=== PATIENT | female | born 1930 | race Caucasian/White ===

== ENCOUNTER 2016-03-30 02:34 | Inpatient (IN) | payer OTHER, MEDICARE ==
[2016-03-30] VITALS (7 sets, daily range): BP systolic 128–149; BP diastolic 57–77; PULSE 59–62; TEMP 36.4–37.2; O2SAT 91–100; Ht 160 cm; Wt 70.8 kg
[~2016-03-30] VITALS: Ht 160 cm; Wt 70.8 kg
[~2016-03-30 02:34] MED LIST: ATV5X PO; BENZ100C84 PO; CHOL1CAP57 PO; CRAN500C2 PO; CYAN100020 PO; DILT240C75 PO; DOCU100C31 PO; ESCI10TA17 PO; INSDGIPEN SC; LANS30CA12 PO; LEVO50TA6 PO; LORA10CA2 PO; LSX40 PO; MAGN400T6 PO; METO100T14 PO; NITR0.4S UT; PRVIN525X NEB; SYMIN160 INH; ZTHM250 PO
[2016-03-30] MEDS ORDERED: ONDANSETRON INJ 2 MG/ML 2 ML VIAL IV STA (02:50)
[2016-03-30] MEDS ORDERED: MoRPHine SULFATE 4 MG/ML 1 ML CARP\\VIAL IV STA ×2 (02:50→03:47)
--- NOTE | 2016-03-30 02:57 | EMERGENCY ROOM VISIT NOTE ---
History Report prepared by Juan: Sebastian Abernathy Under the Supervision of: Dr. Rosaura Ramon D.O. First contact with patient: 02:39 Chief Complaint: ABDOMINAL PAIN Stated Complaint: ABDOMINAL DISCOMFORT Nursing Triage Summary: Pt c/o abdominal pain across abdomen and into back since 1900. Pt states she hasn't been going to the bathroom as normal. Complains of nausea and attempts to vomit. Also c/o cough ongoing for 1 year and was diagnoses with yeast infection in throat/sinus and lungs. History of Present Illness The patient is an 85 year old female who presents to the Emergency Room with complaints of persistent lower abdominal pain starting about 8 hours ago. She describes it to be a sharp pain which radiates into her back. She also complains of nausea but denies vomiting. She also complains of constipation. Her last normal bowel movement was 2 days ago. She took hot prune without relief. She has had a loss of appetite. She notes worse than normal weakness occurring tonight. She also reports runny nose, cough with mucous production, and sore throat occurring for the past few months. She was recently diagnosed with a yeast infection and sinus infection. The patient has a history of cholecystectomy, appendectomy, and hysterectomy. She denies any history of bowel obstruction. Source of History: patient Onset: about 8 hours ago Position: abdomen (lower) Quality: sharp Timing: other (persistent) Modifying Factors (Relieving): other (hot prune without relief) Associated Symptoms: + cough, + nausea, + sorethroat, No vomiting Review of Systems See HPI for pertinent positives & negatives. A total of 10 systems reviewed and were otherwise negative. Past Medical & Surgical Medical Problems: (1) Acute exacerbation of CHF (congestive heart failure) (2) Atrial fibrillation (3) CHF (congestive heart failure) (4) DM (diabetes mellitus) (5) GERD (gastroesophageal reflux disease) (6) Pacemaker (7) PNA (pneumonia) (8) Renal failure (9) SBO (small bowel obstruction) Surgical Problems: (1) History of cardiac cath (2) S/P quintuple vessel bypass Family History Omitted secondary to age Social History Smoking Status: Never Smoker Alcohol Use: none Drug Use: none Marital Status: Housing Status: lives alone Occupation Status: retired Current/Historical Medications Scheduled Albuterol Sulf (Albuterol Sulfate), 2.5 MG NEB Q4H Aspirin (Aspirin Ec), 81 MG PO DAILY Benzonatate (Tessalon Perles), 100 MG PO TID Cholecalciferol (Vitamin D3), 1,000 INTER.UNIT PO QAM Cranberry (Vaccinium Macrocarp (Cranberry), 1,000 MG PO BID Cyanocobalamin (Vitamin B12), 1,000 MCG PO QAM Diltiazem Hcl Extended Release (Diltiazem Hcl), 240 MG PO QAM Escitalopram (Lexapro), 5 MG PO DAILY Fluconazole (Diflucan), 200 MG PO BID Furosemide (Furosemide), 40 MG PO QAM Insulin Glargine (Lantus Solostar), 30 UNITS SC QAM Lansoprazole (Prevacid), 30 MG PO DAILY Levothyroxine Sodium (Levothyroxine Sodium), 50 MCG PO QAM Loratadine (Claritin), 10 MG PO QAM Magnesium Oxide (Mag-Ox), 400 MG PO QAM Metoprolol Tartrate (Lopressor) (Lopressor), 100 MG PO BID Mometasone Furoate (Nasal) (Mometasone Furoate), 2 SPRAYS ANTOINE DAILY Tiotropium [place]-Olodaterol (Stiolto Respimat 2.5-2.5 Mcg/Act), 2 PUFFS PO DAILY Scheduled PRN Docusate Sodium (Docusate Sodium), 100 MG PO BID PRN for Constipation Levalbuterol (Levalbuterol HCl), 3 ML NEB Q6 PRN for UNDECIDED Nitroglycerin (Nitrostat), 0.4 MG UT UD PRN for Chest Pain Allergies Coded Allergies: Fenofibrate (Verified Allergy, Intermediate, rash, 03/30/16) Amoxicillin (Verified Allergy, Unknown, UNKNOWN, 03/30/16) Fexofenadine (Verified Allergy, Unknown, UNKNOWN, 03/30/16) Irbesartan (Verified Allergy, Unknown, UNKNOWN, 03/30/16) Niacin (Verified Allergy, Unknown, RASH, 03/30/16) Penicillins (Verified Allergy, Unknown, UNKNOWN, 03/30/16) Sulfa Antibiotics (Verified Allergy, Unknown, UNKNOWN, 03/30/16) Flumazenil (Unverified Adverse Reaction, Intermediate, DELIRIUM, 03/30/16) anxious, increased heart rate, increased blood pressure Physical Exam Vital Signs Date Time Temp Pulse Resp B/P Pulse Ox O2 Delivery O2 Flow Rate FiO2 03/30/16 05:30 91 21 102/67 97 Room Air 03/30/16 04:26 93 Nasal Cannula 3.0 03/30/16 04:24 74 18 202/74 93 Nasal Cannula 3.0 03/30/16 03:05 68 24 198/97 98 Room Air 03/30/16 02:56 60 03/30/16 02:36 36.7 61 25 214/80 94 Room Air Physical Exam General: Appears uncomfortable. HEENT: Head - normocephalic and atraumatic Pupils are equal, round, and reactive to light. Extraocular eye muscles are intact, and sclera are anicteric. Nose - moist nasal mucosa without discharge. Mouth - dry buccal mucosa. Oropharynx is nonerythematous and there is no tonsillar exudate or edema noted. Neck: Supple; no JVD, nuchal rigidity, cervical lymphadenopathy. Heart: Regular rate and rhythm. There is a normal S1 and S2 with no murmurs, clicks, or gallops appreciated. Lungs: Clear to auscultation bilaterally with no wheezes, rales, or rhonchi. Abdomen: Soft, diffuse abdominal pain with palpation, nondistended, with good bowel sounds. There are no palpable pulsatile masses or hepatosplenomegaly. There is no guarding, rigidity, or rebound noted. Extremities: No evidence of cyanosis, clubbing. There are easily palpable peripheral pulses. Trace edema. Skin: warm and dry with good turgor and no rashes. Medical Decision & Procedures ER Provider Diagnostic Interpretation: X-ray results as stated below per interpretation by me: CHEST/ABDOMEN X-RAY Large amount of stool throughout the small and large bowel. CT results as stated below per my review and radiologist interpretation: CT ABDOMEN AND PELVIS Impression: Small bowel obstruction with transition point in the right femoral hernia. No evidence of strangulation. No pneumatosis or free air. Additional findings: The visualized lower thorax demonstrates mosaic attenuation suggestion air trapping from small airways disease. The gallbladder is surgically absent. The liver, spleen, pancreas, and adrenal glands are unremarkable. Marked atrophy of the left kidney. Otherwise, kidneys, ureters and urinary bladder are unremarkable. The uterus is surgically absent. No adnexal masses. The appendix is not visualized and may be surgically absent or diminutive. Noninflamed colonic diverticulosis. Lower anterior abdominal wall hernia repair with mesh. No acute osseous abnormality. Radiologist: Jarrod Cody MD Laboratory Results 03/30/16 03:05 Red Blood Count 5.11, Mean Corpuscular Volume 86.7, Mean Corpuscular Hemoglobin 30.7, Mean Corpuscular Hemoglobin Concent 35.4, Mean Platelet Volume 8.8, Neutrophils (%) (Auto) 79.2, Lymphocytes (%) (Auto) 13.9, Monocytes (%) (Auto) 4.5, Eosinophils (%) (Auto) 1.8, Basophils (%) (Auto) 0.2, Neutrophils # (Auto) 9.05, Lymphocytes # (Auto) 1.59, Monocytes # (Auto) 0.51, Eosinophils # (Auto) 0.21, Basophils # (Auto) 0.02 03/30/16 03:05 Test 03/30/16 03:05 03/30/16 03:10 White Blood Count 11.42 K/uL (4.8-10.8) Red Blood Count 5.11 M/uL (4.2-5.4) Hemoglobin 15.7 g/dL (12.0-16.0) Hematocrit 44.3 % (37-47) Mean Corpuscular Volume 86.7 fL (80-100) Mean Corpuscular Hemoglobin 30.7 pg (25-34) Mean Corpuscular Hemoglobin Concent 35.4 g/dl (32-36) Platelet Count 226 K/uL (130-400) Mean Platelet Volume 8.8 fL (7.4-10.4) Neutrophils (%) (Auto) 79.2 % Lymphocytes (%) (Auto) 13.9 % Monocytes (%) (Auto) 4.5 % Eosinophils (%) (Auto) 1.8 % Basophils (%) (Auto) 0.2 % Neutrophils # (Auto) 9.05 K/uL (1.4-6.5) Lymphocytes # (Auto) 1.59 K/uL (1.2-3.4) Monocytes # (Auto) 0.51 K/uL (0.11-0.59) Eosinophils # (Auto) 0.21 K/uL (0-0.5) Basophils # (Auto) 0.02 K/uL (0-0.2) RDW Standard Deviation 43.3 fL (36.4-46.3) RDW Coefficient of Variation 13.6 % (11.5-14.5) Immature Granulocyte % (Auto) 0.4 % Immature Granulocyte # (Auto) 0.04 K/uL (0.00-0.02) Anion Gap 10.0 mmol/L (3-11) Est Creatinine Clear Calc Drug Dose 28.2 ml/min Estimated GFR () 39.3 Estimated GFR (Non- 33.9 BUN/Creatinine Ratio 12.2 (10-20) Calcium Level 9.3 mg/dl (8.5-10.1) Total Bilirubin 0.4 mg/dl (0.2-1) Direct Bilirubin < 0.1 mg/dl (0-0.2) Aspartate Amino Transf (AST/SGOT) 19 U/L (15-37) Alanine Aminotransferase (ALT/SGPT) 16 U/L (12-78) Alkaline Phosphatase 110 U/L (45-117) Total Creatine Kinase 43 U/L (26-192) Creatine Kinase MB 4.2 ng/ml (0.5-3.6) Creatine Kinase MB Ratio 9.8 (0-3.0) Troponin I 0.019 ng/ml (0-0.045) Total Protein 7.4 gm/dl (6.4-8.2) Albumin 3.0 gm/dl (3.4-5.0) Lipase 110 U/L (73-393) Urine Color YELLOW Urine Appearance CLEAR (CLEAR) Urine pH 7.5 (4.5-7.5) Urine Specific [place] 1.020 (1.000-1.030) Urine Protein 4+ (NEG) Urine Glucose (UA) 1+ (NEG) Urine Ketones NEG (NEG) Urine Occult Blood 1+ (NEG) Urine Nitrite NEG (NEG) Urine Bilirubin NEG (NEG) Urine Urobilinogen NEG (NEG) Urine Leukocyte Esterase NEG (NEG) Urine WBC (Auto) 1-5 /hpf (0-5) Urine RBC (Auto) 5-10 /hpf (0-4) Urine Hyaline Casts (Auto) 5-10 /lpf (0-5) Urine Epithelial Cells (Auto) >30 /lpf (0-5) Urine Bacteria (Auto) 1+ (NEG) Urine Renal Epithelial Cells 5-10 /lpf (0-5) Urine Crystals AMORPHOUS SEDIMENT (NONE Laboratory results per my review. Medications Administered Medications (Trade) Dose Ordered Sig/Leslee Route Start Time Stop Time Status Last Admin Dose Admin Ondansetron HCl (Zofran Inj) 4 mg NOW STAT IV 03/30/16 02:50 03/30/16 02:51 DC 03/30/16 03:12 4 MG Morphine Sulfate (MoRPHine SULFATE INJ) 2 mg STK-MED ONCE .ROUTE 03/30/16 03:09 03/30/16 03:10 DC 03/30/16 03:12 2 MG Morphine Sulfate 2 mg 2 mg STK-MED ONCE .ROUTE 03/30/16 03:50 03/30/16 03:51 DC 03/30/16 03:52 2 MG Sodium Chloride 1,000 ml @ 250 mls/hr Q4H STAT IV 03/30/16 03:57 03/30/16 06:12 DC 03/30/16 05:18 250 MLS/HR Sodium Chloride (Nss 500ml) 500 ml @ 999 mls/hr Q31M STAT IV 03/30/16 03:57 03/30/16 04:27 DC 03/30/16 04:00 999 MLS/HR Procedure Zofran Inj 4 mg IV, Morphine Sulfate 2 mg IV, Sodium Chloride 500 ml @ 999 mls/ hr IV, Sodium Chloride 1000 ml @ 250 mls/hr IV ECG Indication: abdominal pain Rate (beats per minute): 60 Rhythm: other (Atrial paced) Findings: LBBB, no acute ischemic change, no ectopy ED Course 0239: Past medical records reviewed. The patient was evaluated in room A11B. A complete history and physical exam was performed. Laboratory studies were drawn as above.. 0250: Zofran Inj 4 mg IV, Morphine Sulfate 2 mg IV. The patient went for an obstruction series as described above. 0347: The patient had no relief with 2 mg of Morphine given earlier. 0350: Morphine Sulfate 2 mg IV. A twelve-lead EKG was obtained as described above. 0357: Sodium Chloride 500 ml @ 999 mls/hr IV, Sodium Chloride 1000 ml @ 250 mls/ hr IV. The patient will go for CT scan of the abdomen/pelvis to rule out small bowel obstruction. 0500: Upon reevaluation, I discussed findings and results with her. She verbalized agreement of the treatment plan. The patient will be evaluated for further management and care. 0510: I discussed the patient's case with Dr. Winchester, from [facility]. 0525: Upon reexamination, she has a palpable, incarcerated right femoral hernia which is very tender to touch. I was unable to reduce it. 0527: I discussed the patient's case with Dr. Bender, general surgeon with [facility]. Medical Decision This is an 85 year old female who presents with abdominal pain. Differential diagnosis include pancreatitis, colitis, small bowel obstruction, aortic dissection. Her labs showed white count 11.4, stable H&H, creatinine 1.4, glucose 245, lipase 110, troponin 0.019, normal coagulation studies. Urinalysis shows 1+ blood, 1+ bacteria, 5-10 red blood cells, and no white blood cells. This is an 85-year-old woman who has developed worsening diffuse abdominal pain that has extended up into her epigastrium. She has some mild associated nausea. Overall, the patient describes loss of appetite and weight loss in the recent past. The patient had a CT scan which showed a small bowel obstruction with a transition point and a right femoral hernia. On reexamination of the patient, she now has a palpable hernia in the right inguinal canal that is quite tender to touch. I was unable to reduce the hernia. I discussed the case with the [facility] as well as the [facility] surgeon on-call. The patient is comfortable at this time. She'll be kept nothing by mouth. She will continue to receive IV fluids. She did have some renal insufficiency and was significantly hyperglycemic. Consults Time Called: 050 Consulting Physician: Dr. Winchester, from [facility] Service Returned Call: 05 I discussed the patient's case with Dr. Winchester, from [facility]. Additional Consults: Time Called: 05 Consulted Physician: Dr. Bender, general surgeon with [facility] Returned Call: [phone] Additional Comments: I discussed the patient's case with Dr. Bender, general surgeon with [facility]. Impression Primary Impression: Small bowel obstruction Additional Impressions: Incarcerated right inguinal hernia, Renal insufficiency, Hyperglycemia due to type 2 diabetes mellitus Scribe Attestation The scribe's documentation has been prepared under my direction and personally reviewed by me in its entirety. I confirm that the note above accurately reflects all work, treatment, procedures, and medical decision making performed by me. Departure Information Dispostion Being Evaluated By Hospitalist Referrals Deion Downs M.D. (PCP) Patient Instructions A Signature Page
[2016-03-30] MEDS ORDERED: MoRPHine SULFATE 2 MG/ML CARP ONE ×2 (03:09→03:50)
[2016-03-30 03:23] LABS: BASO % 0.2 %; BASO ABS # 0.02 K/uL (0-0.2); COMPLETE YES; EOS % 1.8 %; HEMATOCRIT 44.3 % (37-47); IG% 0.4 %; LYMPH % 13.9 %; LYMPH ABS # 1.59 K/uL (1.2-3.4); MEAN CELL VOLUME 86.7 fL (80-100); MEAN CORPUSCULAR HEMOGLOBIN 30.7 pg (25-34); MEAN CORPUSCULAR HGB CONC 35.4 g/dl (32-36); MEAN PLATELET VOLUME 8.8 fL (7.4-10.4); MONO % 4.5 %; NEUT % 79.2 %; PLATELET COUNT 226 K/uL (130-400); RED BLOOD COUNT 5.11 M/uL (4.2-5.4); WHITE BLOOD COUNT 11.42 K/uL (4.8-10.8)
[2016-03-30 03:24] LABS: URINE APPEARANCE CLEAR (CLEAR); URINE BILIRUBIN NEG (NEG); URINE COLOR YELLOW; URINE EPITHELIAL CELL AUTO >30 /lpf (0-5); URINE NITRITE NEG (NEG); URINE PH 7.5 (4.5-7.5); UROBILINOGEN NEG (NEG)
[2016-03-30 03:33] LABS: MANUAL MICROSCOPIC REQUIRED? NO; REVIEW REQ? YES; SULFASALICYLIC ACID POS (NEG)
[2016-03-30 03:47] LABS: ALT/SGPT 16 U/L (12-78); AST/SGOT 19 U/L (15-37); BLOOD UREA NITROGEN 17 mg/dl (7-18); BUN/CREATININE RATIO 12.2 (10-20); CALCIUM 9.3 mg/dl (8.5-10.1); CARBON DIOXIDE 29 mmol/L (21-32); CHLORIDE 94 mmol/L (98-107); GLUCOSE 245 mg/dl (70-99); POTASSIUM 3.7 mmol/L (3.5-5.1); SODIUM 133 mmol/L (136-145)
[2016-03-30 03:52] LABS: ALKALINE PHOSPHATASE 110 U/L (45-117); CKMB/CK RATIO 9.8 (0-3.0)
[2016-03-30] MEDS ORDERED: SODIUM CHLORIDE 0.9% 500ML 500 ML IV STA (03:57)
[2016-03-30] MEDS ORDERED: SODIUM CHLORIDE 0.9% 1000ML 1,000 ML IV STA (03:57)
[2016-03-30] MEDS ORDERED: XPNINS NEB (03:58)
[2016-03-30] MEDS ORDERED: FLUC200T4 PO (03:58)
[2016-03-30] MEDS ORDERED: ASPI81TA28 PO (04:00)
[2016-03-30] MEDS ORDERED: OPTIRAY 320 IV PRN (04:00)
[2016-03-30] MEDS ORDERED: TIOT1AER PO (04:33)
[2016-03-30] MEDS ORDERED: MOME6000 NAE (04:34)
--- NOTE | 2016-03-30 05:28 | History and Physical ---
History & Physical Date & Time of Service: Mar 30, 2016 at 05:24 Chief Complaint: Abdominal Discomfort Primary Care Physician: Deion Downs M.D. History of Present Illness Source: patient 85 y/o F w/complex Hx including CHF, AF, CAD, DM, CKD 3 - presents with lower abdominal pain and nausea occurring 8 hours prior to arrival. She states that she was dry heaving but unable to vomit. The pt was recently admitted for bronchitis and SOB but currently denies significant dyspnea, CP, fevers, dysuria. Abdominal CT reveals an SBO with a transition point at a R femoral hernia - this is concerning for incarceration. She is exhibiting a significant degree of pain at the time of admission. The ER attending had contacted the surgical service who will evaluate the pt however they have requested medical admission. Past Medical/Surgical History Medical Problems: (1) Atrial fibrillation Status: Chronic (2) CHF (congestive heart failure) Status: Chronic (echo 01/07 EF 45% - mild LV hypokinesis) (3) DM (diabetes mellitus) Status: Chronic (4) GERD (gastroesophageal reflux disease) Status: Chronic (5) Pacemaker Status: Chronic (6) Renal failure Status: Chronic Surgical Problems: (1) History of cardiac cath Status: Resolved (2) S/P quintuple vessel bypass Status: Resolved 3) Hysterectomy 4) Hernia repair w/mesh 5) Cholecystectomy 6) Appendectomy Family History Omitted secondary to age Social History Smoking Status: Never Smoker Drug Use: none Marital Status: Housing status: lives alone Occupational Status: retired Allergies Coded Allergies: Fenofibrate (Verified Allergy, Intermediate, rash, 03/30/16) Amoxicillin (Verified Allergy, Unknown, UNKNOWN, 03/30/16) Fexofenadine (Verified Allergy, Unknown, UNKNOWN, 03/30/16) Irbesartan (Verified Allergy, Unknown, UNKNOWN, 03/30/16) Niacin (Verified Allergy, Unknown, RASH, 03/30/16) Penicillins (Verified Allergy, Unknown, UNKNOWN, 03/30/16) Sulfa Antibiotics (Verified Allergy, Unknown, UNKNOWN, 03/30/16) Flumazenil (Unverified Adverse Reaction, Intermediate, DELIRIUM, 03/30/16) anxious, increased heart rate, increased blood pressure Home Medications Scheduled Albuterol Sulf (Albuterol Sulfate), 2.5 MG NEB Q4H Aspirin (Aspirin Ec), 81 MG PO DAILY Benzonatate (Tessalon Perles), 100 MG PO TID Cholecalciferol (Vitamin D3), 1,000 INTER.UNIT PO QAM Cranberry (Vaccinium Macrocarp (Cranberry), 1,000 MG PO BID Cyanocobalamin (Vitamin B12), 1,000 MCG PO QAM Diltiazem Hcl Extended Release (Diltiazem Hcl), 240 MG PO QAM Escitalopram (Lexapro), 5 MG PO DAILY Fluconazole (Diflucan), 200 MG PO BID Furosemide (Furosemide), 40 MG PO QAM Insulin Glargine (Lantus Solostar), 30 UNITS SC QAM Lansoprazole (Prevacid), 30 MG PO DAILY Levothyroxine Sodium (Levothyroxine Sodium), 50 MCG PO QAM Loratadine (Claritin), 10 MG PO QAM Magnesium Oxide (Mag-Ox), 400 MG PO QAM Metoprolol Tartrate (Lopressor) (Lopressor), 100 MG PO BID Mometasone Furoate (Nasal) (Mometasone Furoate), 2 SPRAYS ANTOINE DAILY Tiotropium [place]-Olodaterol (Stiolto Respimat 2.5-2.5 Mcg/Act), 2 PUFFS PO DAILY Scheduled PRN Docusate Sodium (Docusate Sodium), 100 MG PO BID PRN for Constipation Levalbuterol (Levalbuterol HCl), 3 ML NEB Q6 PRN for UNDECIDED Nitroglycerin (Nitrostat), 0.4 MG UT UD PRN for Chest Pain Physical Exam Vital Signs Date Time Temp Pulse Resp B/P Pulse Ox O2 Delivery O2 Flow Rate FiO2 03/30/16 04:26 93 Nasal Cannula 3.0 03/30/16 04:24 74 18 202/74 93 Nasal Cannula 3.0 03/30/16 03:05 68 24 198/97 98 Room Air 03/30/16 02:56 60 03/30/16 02:36 36.7 61 25 214/80 94 Room Air General Appearance: WD/WN, no apparent distress Head: normocephalic, atraumatic Eyes: normal inspection, EOMI ENT: normal ENT inspection, pharynx normal Neck: supple, no JVD Respiratory/Chest: chest non-tender, lungs clear, normal breath sounds, no respiratory distress, no accessory muscle use Cardiovascular: no JVD, + systolic murmur, + irregularly irregular Abdomen/GI: + tenderness, + abnormal bowel sounds, + distended, + guarding Back: normal inspection, no CVA tenderness 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, no motor/sensory deficits, alert, normal mood/affect, normal reflexes, oriented x 3 Skin: normal color, warm/dry, no rash Diagnostics Laboratory Results Results Past 24 Hours Test 03/30/16 03:05 03/30/16 03:10 Range/Units White Blood Count 11.42 4.8-10.8 K/uL Red Blood Count 5.11 4.2-5.4 M/uL Hemoglobin 15.7 12.0-16.0 g/dL Hematocrit 44.3 37-47 % Mean Corpuscular Volume 86.7 80-100 fL Mean Corpuscular Hemoglobin 30.7 25-34 pg Mean Corpuscular Hemoglobin Concent 35.4 32-36 g/dl Platelet Count 226 130-400 K/uL Mean Platelet Volume 8.8 7.4-10.4 fL Neutrophils (%) (Auto) 79.2 % Lymphocytes (%) (Auto) 13.9 % Monocytes (%) (Auto) 4.5 % Eosinophils (%) (Auto) 1.8 % Basophils (%) (Auto) 0.2 % Neutrophils # (Auto) 9.05 1.4-6.5 K/uL Lymphocytes # (Auto) 1.59 1.2-3.4 K/uL Monocytes # (Auto) 0.51 0.11-0.59 K/uL Eosinophils # (Auto) 0.21 0-0.5 K/uL Basophils # (Auto) 0.02 0-0.2 K/uL RDW Standard Deviation 43.3 36.4-46.3 fL RDW Coefficient of Variation 13.6 11.5-14.5 % Immature Granulocyte % (Auto) 0.4 % Immature Granulocyte # (Auto) 0.04 0.00-0.02 K/uL Sodium Level 133 136-145 mmol/L Potassium Level 3.7 3.5-5.1 mmol/L Chloride Level 94 98-107 mmol/L Carbon Dioxide Level 29 21-32 mmol/L Anion Gap 10.0 3-11 mmol/L Blood Urea Nitrogen 17 7-18 mg/dl Creatinine 1.40 0.60-1.20 mg/dl Est Creatinine Clear Calc Drug Dose 28.2 ml/min Estimated GFR () 39.3 Estimated GFR (Non- 33.9 BUN/Creatinine Ratio 12.2 10-20 Random Glucose 245 70-99 mg/dl Calcium Level 9.3 8.5-10.1 mg/dl Total Bilirubin 0.4 0.2-1 mg/dl Direct Bilirubin < 0.1 0-0.2 mg/dl Aspartate Amino Transf (AST/SGOT) 19 15-37 U/L Alanine Aminotransferase (ALT/SGPT) 16 12-78 U/L Alkaline Phosphatase 110 45-117 U/L Total Creatine Kinase 43 26-192 U/L Creatine Kinase MB 4.2 0.5-3.6 ng/ml Creatine Kinase MB Ratio 9.8 0-3.0 Troponin I 0.019 0-0.045 ng/ml Total Protein 7.4 6.4-8.2 gm/dl Albumin 3.0 3.4-5.0 gm/dl Lipase 110 73-393 U/L Urine Color YELLOW Urine Appearance CLEAR CLEAR Urine pH 7.5 4.5-7.5 Urine Specific [place] 1.020 1.000-1.030 Urine Protein 4+ NEG Urine Glucose (UA) 1+ NEG Urine Ketones NEG NEG Urine Occult Blood 1+ NEG Urine Nitrite NEG NEG Urine Bilirubin NEG NEG Urine Urobilinogen NEG NEG Urine Leukocyte Esterase NEG NEG Urine WBC (Auto) 1-5 0-5 /hpf Urine RBC (Auto) 5-10 0-4 /hpf Urine Hyaline Casts (Auto) 5-10 0-5 /lpf Urine Epithelial Cells (Auto) >30 0-5 /lpf Urine Bacteria (Auto) 1+ NEG Urine Renal Epithelial Cells 5-10 0-5 /lpf Urine Crystals AMORPHOUS SEDIMENT NONE PRSENT Microbiology Results 03/30/16 Urine Culture, Received Pending Diagnostic Radiology Abdominal CT reveals an SBO with a transition point at a R femoral hernia. EKG Paced rhythm Impression Assessment and Plan 85 y/o F w/complex Hx including CHF, AF, CAD, DM, CKD 3 - presents with lower abdominal pain and nausea occurring 8 hours prior to arrival. 1) SBO - abdomen is clinically acute and surgery was informed by the ER at the time of admission - Pt is high risk for surgery and should be evaluated by cardiology if surgery is needed. We will order an NGT and place her on gentle hydration. It is unclear if an incarcerated hernia is the cause or if this can be reduced without significant intervention. medications which can be converted to IV form will be provided. 2) CHF 45% - she is not currently decompensated - we will hold her Lasix currently and provide scheduled IV Metoprolol with holding parameters. 3) AF with pacer - she does not take anticoagulation presumably due to fall risk - rhythm is paced on admission - IV Metoprolol provided - she takes PO Diltiazem in addition to a B katie normally and IV Diltiazem can be provided as needed - she will be monitored on telemetry 4) CKD - Creatinine is at baseline - IVF - trend labs daily 5) DM - sliding scale - Q6H POC Full code - SCDs pending surgical eval Total time for this admit including chart review - review of records, labs, med rec, imaging, EKG - discussion with ER attending and Pt 40 min Level of Care Telemetry Resuscitation Status FULL RESUSCITATION VTE Prophylaxis Risk Level: Moderate Given or contraindicated: SCD's
[2016-03-30] MEDS ORDERED: ALBUTEROL 0.5% NEB SOLN 2.5 MG/0.5 ML VIAL INH PRN (05:45)
[2016-03-30] MEDS ORDERED: NITROGLYCERIN 0.4 MG SL PER TAB CHARGE UT PRN (05:45)
[2016-03-30] MEDS ORDERED: MoRPHine SULFATE 2 MG/ML CARP IV PRN (05:45)
[2016-03-30] MEDS ORDERED: NITROGLYCERIN 0.4 MG SL PER TAB CHARGE SL PRN (05:45)
[2016-03-30 06:35] LABS: PROTHROMBIN TIME (PATIENT) 10.6 SECONDS (9.0-12.0)
[2016-03-30] MEDS ORDERED: NEOSTIGMINE METHYLSULFATE 5 MG/5 ML SYR ONE (07:15)
[2016-03-30] MEDS ORDERED: ROCURONIUM BROMIDE 10 MG/ML 5 ML VIAL ONE (07:15)
[2016-03-30] MEDS ORDERED: PROPOFOL IV EMULSION 10 MG/ML 20 ML VIAL IV ONE (07:15)
[2016-03-30] MEDS ORDERED: GLYCOPYRROLATE INJ 0.2 MG/ML VIAL ONE ×2 (07:15→09:55)
[2016-03-30] MEDS ORDERED: LIDOCAINE HCL 2% 2 ML VIAL (20MG/ML) ONE (07:15)
[2016-03-30] MEDS ORDERED: FENTANYL CITRATE INJ 50 MCG/1 ML 2 ML VIAL ONE (07:15)
[2016-03-30] MEDS ORDERED: ONDANSETRON INJ 2 MG/ML 2 ML VIAL ONE ×2 (07:15→12:09)
[2016-03-30] MEDS ORDERED: DEXAMETHASONE SOD INJ 4 MG/ML VIAL ONE (07:15)
[2016-03-30] MEDS ORDERED: MIDAZOLAM HCL 1 MG/ML 2ML VIAL ONE (07:16)
[2016-03-30] MEDS: NSS + 20MEQ KCL 1000ML 1,000 ML IV SCH ×2 (07:23→13:37)
--- NOTE | 2016-03-30 07:45 | DIAGNOSTIC IMAGING REPORT ---
PA CHEST WITH ABDOMINAL SERIES CLINICAL HISTORY: Generalized abdominal pain. Constipation. FINDINGS: A PA chest radiograph is compared to study dated 03/21/2016 and correlated with chest CT dated 12/30/2015. A 2-lead cardiac pacemaker is unchanged in position and partially obscures the left upper chest. The patient is status post midline sternotomy. The heart is enlarged and there is atherosclerotic calcification of the thoracic aorta. Chronic interstitial thickening an parenchymal nodularity is unchanged. There is no airspace consolidation, large pleural effusion, or pneumothorax. Biapical scarring is observed. The skeletal structures are osteopenic. The bony thorax is grossly intact. Supine and erect abdominal radiographs are correlated with abdominal CT dated 09/12/2013. There is a nonobstructed abdominal bowel gas pattern. Cholecystectomy clips are seen in the right upper quadrant. There is moderate colonic fecal retention. No intraperitoneal free air is seen. Vascular calcifications are noted in the pelvis. Moderate lumbosacral spondylosis is observed. The bony pelvis is grossly intact. Arthritic change is seen in the hips. IMPRESSION: 1. Cardiomegaly and cardiac pacemaker. There is no radiographic evidence of congestive failure. 2. There is no airspace consolidation or pleural effusion. 3. There is no radiographic evidence of bowel obstruction. Moderate constipation is observed. Electronically signed by: Sumit Schmid M.D. 03/30/2016 7:43 AM Dictated Date/Time: 03/30/2016 7:39 AM
--- NOTE | 2016-03-30 08:22 | DIAGNOSTIC IMAGING REPORT ---
ABDOMEN AND PELVIS CT WITH IV CONTRAST CT DOSE: 591.27 mGy.cm HISTORY: Abdominal distention. Assess for small bowel obstruction. Vomiting. TECHNIQUE: Multiaxial CT images of the abdomen and pelvis were performed following the use of intravenous contrast. COMPARISON STUDY: Abdomen and pelvis CT 09/12/2013. FINDINGS: A few subcentimeter nodules at the lung bases are similar to the prior study. Dominant nodule within the left lower lobe measures 6 mm. Pacemaker wires are noted. No pneumoperitoneum or pneumatosis. Degenerative changes within the right hip. No suspicious lytic or blastic osseous lesions. There are poststernotomy changes. Prior cholecystectomy. The liver is unremarkable. Punctate calcified granuloma within the spleen. The pancreas is atrophic. There is a markedly atrophic left kidney, unchanged. Moderate right cortical renal scarring/thinning. No right-sided hydronephrosis. No retroperitoneal lymphadenopathy. Multiple fluid-filled loops of dilated proximal to mid small bowel. There is a transition point located within the right lower quadrant abdominal wall hernia. This is consistent with the site of small bowel obstruction. Normal bladder. Prior hysterectomy. Stable soft tissue thickening surrounding the coccyx. Colonic diverticulosis. The ileal loops are decompressed. Evidence for prior mesh repair of a ventral hernia. IMPRESSION: 1. Small bowel obstruction with the transition point located within the right lower quadrant abdominal wall hernia. This could represent a Spigelian or femoral hernia. 2. Additional findings as described above are not significantly changed compared to the prior study. Electronically signed by: Benoit Rutherford M.D. 03/30/2016 8:20 AM Dictated Date/Time: 03/30/2016 8:12 AM
[2016-03-30] MEDS ORDERED: LACTATED RINGER'S 1000ML 1,000 ML IV PRN (08:54)
--- NOTE | 2016-03-30 08:55 | Pre-Operative Consultation ---
History General Date of Service: Mar 30, 2016. Chief Complaint: Abd pain, nausea Stated Complaint: 85 year old female developed abdominal pain last night at 7 PM. The pain is in the lower abdomen and mostly in the right inguinal area. She has never had pain like this in the past. She has had nausea with this and dry heaves but did not vomit. She has not had fever. She has a long history of intermittent constipation but her bowel habits are unchanged. She has some issues with urinary incontinence. HPI HPI: The patient is a 85 year old female being seen for pre-operative evaluation. Historian: patient Procedure Urgency: Emergency Risk Assessment Pre-Op Conditions: + pacemaker Problem List Medical Problems: (1) Altered mental status Status: Acute (2) Hyperglycemia Status: Acute (3) Hyperglycemia due to type 2 diabetes mellitus Status: Acute (4) Incarcerated right inguinal hernia Status: Acute (5) Left leg cellulitis Status: Acute (6) Leukocytosis Status: Acute (7) Pneumonia Status: Acute (8) Pneumonitis Status: Acute (9) Renal insufficiency Status: Acute (10) Respiratory distress Status: Acute (11) Small bowel obstruction Status: Acute (12) UTI (urinary tract infection) Status: Acute Medical & Surgical History Past Medical History: atrial fibrillation, congestive heart failure, coronary artery disease, diabetes, GERD, heart attack, heart disease, other (CKD 3) Past Surgical History: appendectomy, cholecystectomy, coronary bypass surgery ( X4), hysterectomy, pacemaker Social History Hx Tobacco Use In Past Year?: No Smoking Status: Never Smoker Alcohol: none Drug Use: none Marital status: Housing status: lives alone Occupation status: retired Allergies Allergies: Coded Allergies: Fenofibrate (Verified Allergy, Intermediate, rash, 03/30/16) Amoxicillin (Verified Allergy, Unknown, UNKNOWN, 03/30/16) Fexofenadine (Verified Allergy, Unknown, UNKNOWN, 03/30/16) Irbesartan (Verified Allergy, Unknown, UNKNOWN, 03/30/16) Niacin (Verified Allergy, Unknown, RASH, 03/30/16) Penicillins (Verified Allergy, Unknown, UNKNOWN, 03/30/16) Sulfa Antibiotics (Verified Allergy, Unknown, UNKNOWN, 03/30/16) Flumazenil (Unverified Adverse Reaction, Intermediate, DELIRIUM, 03/30/16) anxious, increased heart rate, increased blood pressure Medications Current Inpatient Medications Current Inpatient Medications Medications (Trade) Dose Ordered Sig/Leslee Route Start Time Stop Time Status Last Admin Dose Admin Ioversol (Optiray 320) 100 ml UD PRN IV 03/30/16 04:00 04/03/16 03:59 Albuterol Sulfate (Ventolin 0.5% 2.5MG/0.5ML Neb) 2.5 mg Q4H PRN INH 03/30/16 05:45 04/29/16 05:44 Fluticasone Propionate (Flonase Nasal [place]) 2 sprays DAILY ANTOINE 03/30/16 09:00 04/29/16 08:59 Miscellaneous Information 1 ea 1 ea QS N/A 03/30/16 08:00 04/29/16 07:59 Levothyroxine Sodium/Syringe (Synthroid Inj/ Syringe) 1.25 ml @ 2 mls/min DAILY@09 IV 03/30/16 09:00 04/29/16 08:59 Metoprolol Tartrate 5 mg 5 mg Q6 IV. 03/30/16 06:00 04/29/16 05:59 UNV Potassium Chloride/Sodium Chloride (Nss + 20meq KCl 1000ml) 1,000 ml @ 50 mls/hr Q20H IV 03/30/16 07:00 04/29/16 06:59 Morphine Sulfate (MoRPHine SULFATE INJ) 2 mg Q3H PRN IV 03/30/16 05:45 04/13/16 05:44 Ondansetron HCl (Zofran Inj) 4 mg Q6H PRN IV 03/30/16 05:45 04/29/16 05:44 Nitroglycerin (Nitrostat Tab) 0.4 mg UD PRN SL 03/30/16 05:45 04/29/16 05:44 Review of Systems Review of Systems Respiratory: reports: no symptoms reported, other (dmitted last month with bronchitis, no SOB at present) Gastrointestinal: see HPI Genitourinary - Female: reports: see HPI Integumentary: denies change in color Endocrine: no symptoms Hematologic / Lymphatic: no symptoms Physical Exam Physical Exam General Appearance: + other (Elderly female in NAD) Neck: No abnormal inspection, No tracheal deviation Respiratory: No abnormal breath sounds, No chest tenderness, No rales Cardiovascular: No abnormal rate, No bradycardia Abdomen: + tenderness (right inguinal hernia with bulge consistent with incarcerated rightinguinal hernia), No abnormal bowel sounds Extremities: No edema Diagnostics Labs Labs Results Past 24 Hours Test 03/30/16 03:05 03/30/16 03:10 Range/Units White Blood Count 11.42 4.8-10.8 K/uL Red Blood Count 5.11 4.2-5.4 M/uL Hemoglobin 15.7 12.0-16.0 g/dL Hematocrit 44.3 37-47 % Mean Corpuscular Volume 86.7 80-100 fL Mean Corpuscular Hemoglobin 30.7 25-34 pg Mean Corpuscular Hemoglobin Concent 35.4 32-36 g/dl Platelet Count 226 130-400 K/uL Mean Platelet Volume 8.8 7.4-10.4 fL Neutrophils (%) (Auto) 79.2 % Lymphocytes (%) (Auto) 13.9 % Monocytes (%) (Auto) 4.5 % Eosinophils (%) (Auto) 1.8 % Basophils (%) (Auto) 0.2 % Neutrophils # (Auto) 9.05 1.4-6.5 K/uL Lymphocytes # (Auto) 1.59 1.2-3.4 K/uL Monocytes # (Auto) 0.51 0.11-0.59 K/uL Eosinophils # (Auto) 0.21 0-0.5 K/uL Basophils # (Auto) 0.02 0-0.2 K/uL RDW Standard Deviation 43.3 36.4-46.3 fL RDW Coefficient of Variation 13.6 11.5-14.5 % Immature Granulocyte % (Auto) 0.4 % Immature Granulocyte # (Auto) 0.04 0.00-0.02 K/uL Prothrombin Time 10.6 9.0-12.0 SECONDS Prothromb Time International Ratio 1.0 0.9-1.1 Sodium Level 133 136-145 mmol/L Potassium Level 3.7 3.5-5.1 mmol/L Chloride Level 94 98-107 mmol/L Carbon Dioxide Level 29 21-32 mmol/L Anion Gap 10.0 3-11 mmol/L Blood Urea Nitrogen 17 7-18 mg/dl Creatinine 1.40 0.60-1.20 mg/dl Est Creatinine Clear Calc Drug Dose 28.2 ml/min Estimated GFR () 39.3 Estimated GFR (Non- 33.9 BUN/Creatinine Ratio 12.2 10-20 Random Glucose 245 70-99 mg/dl Calcium Level 9.3 8.5-10.1 mg/dl Total Bilirubin 0.4 0.2-1 mg/dl Direct Bilirubin < 0.1 0-0.2 mg/dl Aspartate Amino Transf (AST/SGOT) 19 15-37 U/L Alanine Aminotransferase (ALT/SGPT) 16 12-78 U/L Alkaline Phosphatase 110 45-117 U/L Total Creatine Kinase 43 26-192 U/L Creatine Kinase MB 4.2 0.5-3.6 ng/ml Creatine Kinase MB Ratio 9.8 0-3.0 Troponin I 0.019 0-0.045 ng/ml Total Protein 7.4 6.4-8.2 gm/dl Albumin 3.0 3.4-5.0 gm/dl Lipase 110 73-393 U/L Urine Color YELLOW Urine Appearance CLEAR CLEAR Urine pH 7.5 4.5-7.5 Urine Specific [place] 1.020 1.000-1.030 Urine Protein 4+ NEG Urine Glucose (UA) 1+ NEG Urine Ketones NEG NEG Urine Occult Blood 1+ NEG Urine Nitrite NEG NEG Urine Bilirubin NEG NEG Urine Urobilinogen NEG NEG Urine Leukocyte Esterase NEG NEG Urine WBC (Auto) 1-5 0-5 /hpf Urine RBC (Auto) 5-10 0-4 /hpf Urine Hyaline Casts (Auto) 5-10 0-5 /lpf Urine Epithelial Cells (Auto) >30 0-5 /lpf Urine Bacteria (Auto) 1+ NEG Urine Renal Epithelial Cells 5-10 0-5 /lpf Urine Crystals AMORPHOUS SEDIMENT NONE PRSENT Microbiology Results 03/30/16 Urine Culture, Received Pending Diagnostic Radiology Diagnostic Radiology CT abd and pelvis: Evidence of SBO with transition point in incarcerated right femoral hernia Impression Assessment and Plan Assessment and Plan Incarcerated right inguinal hernia causing bowel obstruction. i could not reduce the hernia. Will require surgical intervention. Patient is at high risk for surgery. I exp;laoned procedure and possible complications and answered patient's questions.
--- NOTE | 2016-03-30 08:57 | Progress Note ---
Progress Note I have seen and examined the pt Intermittent tachycardia and uncontrolled BP likely due to pain Abd soft diffuse tenderness Pt has hx of CABG, CHF, afib, DM Only on ASA Last ECHO reviewed Paced rhythm on EKG No chest pain and no sign of decompensated CHF Mod risk for surgery for incarcerated hernia and SBO but acceptable risk Will consult cardiology
[2016-03-30] MEDS ORDERED: LEVOTHYROXINE SODIUM INJ 25 MCG in SYRINGE 0 ML IV SCH (09:00)
[2016-03-30] MEDS ORDERED: HEPARIN SOD 5000 UNIT/0.5 ML CARP SQ SCH (09:00)
[2016-03-30] MEDS ORDERED: FENTANYL CITRATE INJ 50 MCG/1 ML 2 ML VIAL IV PRN (09:00)
[2016-03-30] MEDS ORDERED: ONDANSETRON INJ 2 MG/ML 2 ML VIAL IV PRN (09:00)
[2016-03-30] MEDS ORDERED: LABETALOL HCL IV 5 MG/ML 20ML ONE (09:57)
[2016-03-30] MEDS ORDERED: NovoLIN-R INSULIN PER UNIT CHARGE ONE (10:02)
[2016-03-30] MEDS ORDERED: BUPIVACAINE 0.5 % 5 MG/1 ML MPF 30ML VIAL INJ ONE (10:59)
--- NOTE | 2016-03-30 10:59 | [facility] Post Operative Brief Note ---
Immediate Operative Summary Operative Date Mar 30, 2016. Pre-Operative Diagnosis Right Incarcerated Inguinal Hernia Post-Operative Diagnosis incarcerated right direct inguinal hernia with ischemic bowel Procedure(s) Performed Reduction and repair of right incarcerated inguinal hernia and partial small bowel resection Surgeon Dr. Yfn Bender Piece Work Checker Surgeon(s) Jaclyn Gamboa U PA-S Estimated Blood Loss 30ml Findings See dictation Specimens A. Portion of small bowel Drains None Anesthesia General Complication(s) None Disposition Recovery Room / PACU
[2016-03-30] MEDS ORDERED: ALUMINUM/MAGNESIUM SUSP 30 ML UDC NG ONE (11:15)
--- NOTE | 2016-03-30 12:04 | OPERATIVE REPORT ---
DATE OF OPERATION: 03/30/2016 PREOPERATIVE DIAGNOSIS: Incarcerated right inguinal hernia. POSTOPERATIVE DIAGNOSIS: Incarcerated direct right inguinal hernia with ischemic bowel. PROCEDURE: Reduction and repair of incarcerated right direct inguinal hernia with partial small bowel resection. SURGEON: Dr. Bender. FINDINGS: The patient had a direct right inguinal hernia with a loop of bowel, measuring approximately 8 cm of bowel that had a purple color to it. After reducing it, there was return of pink color to some of it; however, the wall seemed to friable and I therefore, I made a decision to resect that portion of the bowel. There was no indirect component to the hernia. The hernia sac was rather large. There were no other areas of ischemic bowel. TECHNIQUE: The patient was given a general anesthetic and the area was prepped and draped in the usual sterile fashion. Right inguinal incision was made. It eventually had to be extended medially. It was carried down through the subcutaneous tissue. The hernia sac was coming out of the external ring and had then extended superiorly onto the anterior surface of the external oblique fascia. That was off the external oblique fascia and then, the external oblique was opened through for a distance of about 6 cm. That allowed me then to free the hernia sac from the surrounding fatty tissue. It was densely adherent in some areas. This required cautery dissection. I then opened the hernia sac. There was dark red fluid within the sac. The ischemic bowel was identified. I tried to reduce the ischemic bowel; however, the opening, where the bowel was protruding, was rather tight. I had to insert my finger into the ring and then opened the floor of the canal superolaterally in order to be able to reduce the small bowel. I placed that back into the abdomen with a Mickey attached. I then the remainder of the hernia sac and then brought that bowel out again. There was some return of pink color; however, I was concerned about the friability of the wall, so I made a decision to perform the resection. I could not eviscerate enough small bowel through the floor of the canal in order to perform the resection there, so I made the second incision transversely above the abdominal crease and carried down through the subcutaneous tissue. There were some bridging veins that had doubly clamped and ligated with 2-0 Vicryl ties. I carried that posteriorly until I encountered the fascia, which was opened transversely. The muscle was split. The peritoneum was identified, incised, and the abdomen was entered through that incision. The bowel was then easily brought out through that incision. I chose a site proximal and distal to the area that had been ischemic to divide the bowel. The mesentery was away from the bowel wall at that site and the bowel was divided using the TEE. The intervening portion of the mesentery was divided using a clamp-clamp divide and ligate technique using 2-0 Vicryl ties. Once the mesentery had been completely divided, the specimen was passed off. The anastomosis was then performed. The bowel wall was approximated to each other in a functional end-to-end fashion making sure not to twist the mesentery. The bowel was approximated to each other with stay sutures of 3-0 silk. The antimesenteric border of each staple line was removed and the TEE was then used to perform the anastomosis. The common opening was closed with a TA 60 stapler. Additional stay sutures of 3-0 silk were placed. The mesentery was closed with a running 2-0 Vicryl. That was placed back into its anatomic position. The peritoneum was closed with a running 2-0 Vicryl and the fascia was closed with a running #1 PDS. The deep subcutaneous tissue was closed with running 2-0 Vicryl. Attention was then turned to the hernia. The hernia sac was further away until it was completely freed down to the floor of the canal. The opening in the sac was closed. It was placed back into its anatomic position. I did not want to resect any of the sac and then I could not identify where the bladder was and I was not sure that was not part of the sac. It was placed back into its anatomic position and the floor of the canal was further defined. I did not want to use mesh as we had opened the small bowel. The repair was performed using 2-0 Prolene suturing the conjoined tendon and then the internal oblique fascia down to initially Travis's ligament and then to the shelving border of the inguinal ligament. The external oblique was closed over that closure with a running 0 PDS. The wound was irrigated. The irrigation was removed. The deep subcutaneous tissue was closed with running 3-0 Vicryl and the skin of both incisions was closed with lauren. The estimated blood loss was 30 mL. Sponge, needle and instrument counts were correct prior to closure. The patient tolerated the surgical procedure without complication and was transferred to recovery. I attest to the content of the Intraoperative Record and any orders documented therein. Any exceptio ns are noted below.
[2016-03-30] MEDS ORDERED: DiphenhydrAMINE HCL 50 MG/ML VIAL ONE (12:09)
[2016-03-30] MEDS ORDERED: METOCLOPRAMIDE HCL INJ 5 MG/ML 2 ML VIAL ONE (12:09)
[2016-03-30] MEDS: FLUTICASONE PROPIONATE NA SPR 16 GM BTL NAE SCH (12:30)
[2016-03-30] MEDS: METOPROLOL TARTRATE 1 MG/ML VIAL IV. SCH ×4 (12:31→23:39)
--- NOTE | 2016-03-30 12:48 | Anesthesiology Progress Note ---
Anesthesia Post Op Note Date & Time Mar 30, 2016 at 12:48 Vital Signs Pain Intensity: 0 Vital Signs Past 12 Hours Date Time Temp Pulse Resp B/P Pulse Ox O2 Delivery O2 Flow Rate FiO2 03/30/16 12:05 36.6 60 22 163/57 95 Nasal Cannula 2 03/30/16 12:04 36.6 60 22 163/57 95 Nasal Cannula 2 03/30/16 11:55 60 22 165/60 100 Nasal Cannula 3 03/30/16 11:45 60 18 170/58 98 Mask 10 03/30/16 11:35 60 18 148/51 93 Mask 10 03/30/16 11:25 61 19 166/53 93 Mask 10 03/30/16 11:17 36.7 64 16 166/61 83 Mask 15 03/30/16 08:15 36.5 61 20 187/81 95 Nasal Cannula 2 03/30/16 08:09 65 20 154/88 95 Nasal Cannula 2.0 03/30/16 07:18 123 24 168/95 95 Nasal Cannula 2.0 03/30/16 06:14 77 03/30/16 05:30 91 21 102/67 97 Room Air 03/30/16 04:26 93 Nasal Cannula 3.0 03/30/16 04:24 74 18 202/74 93 Nasal Cannula 3.0 03/30/16 03:05 68 24 198/97 98 Room Air 03/30/16 02:56 60 03/30/16 02:36 36.7 61 25 214/80 94 Room Air Notes Mental Status: alert / awake / arousable, participated in evaluation Pt Amnestic to Procedure: Yes Nausea / Vomiting: adequately controlled Pain: adequately controlled Airway Patency, RR, SpO2: stable & adequate BP & HR: stable & adequate Hydration State: stable & adequate Anesthetic Complications: no major complications apparent
[2016-03-30] MEDS ORDERED: GLUCOSE 40% GEL 15 GM TUBE PO PRN (14:00)
[2016-03-30] MEDS ORDERED: GLUCOSE 10 TABS/TUBE PO PRN (14:00)
[2016-03-30] MEDS ORDERED: DEXTROSE 50% 50 ML SYR IV PRN (14:00)
[2016-03-30] MEDS ORDERED: GLUCAGON FOR INJ 1 MG VIAL SQ PRN (14:00)
[2016-03-30] MEDS: ALUMINUM/MAGNESIUM SUSP 30 ML UDC NG SCH ×3 (14:30→21:00)
[2016-03-30] MEDS ORDERED: NURSING VERBAL MED ORDER ONE (15:45)
[2016-03-30] MEDS ORDERED: INSULIN ASPART 100 UNITS/ML 3 ML PEN SC SCH ×2 (16:00→16:15)
[2016-03-30] MEDS ORDERED: PNEUMOCOCCAL POLYSACCHARIDES 25 MCG/0.5 ML VIAL/SYR IM. ONE (16:45)
[2016-03-30] MEDS ORDERED: PNEUMOCOCCAL ADMINISTRATION CHARGE ONE (16:45)
[2016-03-30] MEDS ORDERED: INFLUENZA VIRUS QUAD VACCINE 0.5 ML SYR IM. ONE (16:45)
[2016-03-30] MEDS ORDERED: INFLUENZA ADMINISTRATION CHARGE ONE (16:45)
[2016-03-30] MEDS: INSULIN ASPART 100 UNITS/ML 3 ML PEN SC SCH (18:00)
[2016-03-30] MEDS: MoRPHine SULFATE 4 MG/ML 1 ML CARP\\VIAL IV PRN (23:35)
[2016-03-31] VITALS (7 sets, daily range): BP systolic 147–169; BP diastolic 52–79; PULSE 59–66; TEMP 36.6–37.2; O2SAT 95–97
[2016-03-31] MEDS: INSULIN ASPART 100 UNITS/ML 3 ML PEN SC SCH ×5 (05:36→23:30)
[2016-03-31] MEDS: METOPROLOL TARTRATE 1 MG/ML VIAL IV. SCH ×4 (05:39→23:30)
[2016-03-31] MEDS: NSS + 20MEQ KCL 1000ML 1,000 ML IV SCH ×3 (06:15→23:50)
[2016-03-31] MEDS ORDERED: NURSING VERBAL MED ORDER ONE ×2 (06:30→15:45)
[2016-03-31] MEDS ORDERED: NSS + 20MEQ KCL 1000ML 1,000 ML IV SCH (07:15)
--- NOTE | 2016-03-31 07:41 | Surgery Progress Note ---
Surgery Progress Note Date of Service Mar 31, 2016. Subjective Post OP Day: 1 very upset with NGT....it is not putting anything out no n/v. Objective Vital Signs: Date Time Temp Pulse Resp B/P Pulse Ox O2 Delivery O2 Flow Rate FiO2 03/31/16 05:39 58 03/31/16 04:00 96 Nasal Cannula 3.0 03/31/16 04:00 37.1 62 16 148/59 96 3.0 03/31/16 00:00 37.0 64 20 147/79 97 3.0 03/31/16 00:00 97 Nasal Cannula 3.0 03/30/16 23:39 64 145/75 03/30/16 20:00 99 Nasal Cannula 3.0 03/30/16 19:50 37.2 60 18 149/76 99 3.0 03/30/16 17:29 62 150/71 03/30/16 16:00 Nasal Cannula 3.0 03/30/16 15:32 37.1 61 18 140/57 98 03/30/16 15:30 36.8 61 20 140/57 98 Nasal Cannula 3.0 03/30/16 14:20 59 17 148/74 100 Nasal Cannula 3.0 03/30/16 13:46 62 145/56 03/30/16 13:20 61 17 128/73 97 Nasal Cannula 3.0 03/30/16 12:50 36.4 62 17 144/77 91 Nasal Cannula 2.0 03/30/16 12:50 91 Nasal Cannula 2.0 03/30/16 12:05 36.6 60 22 163/57 95 Nasal Cannula 2 03/30/16 12:04 36.6 60 22 163/57 95 Nasal Cannula 2 03/30/16 11:55 60 22 165/60 100 Nasal Cannula 3 03/30/16 11:45 60 18 170/58 98 Mask 10 03/30/16 11:35 60 18 148/51 93 Mask 10 03/30/16 11:25 61 19 166/53 93 Mask 10 03/30/16 11:17 36.7 64 16 166/61 83 Mask 15 03/30/16 08:15 36.5 61 20 187/81 95 Nasal Cannula 2 03/30/16 08:09 65 20 154/88 95 Nasal Cannula 2.0 Physical Exam: nasogastric drainage (scant/0) Head: normocephalic Abdomen: non distended, soft Incision(s): clean, dry, intact Laboratory Results: Results Past 24 Hours Test 03/30/16 09:25 03/30/16 11:36 03/30/16 13:29 03/30/16 17:48 Range/Units Bedside Glucose 261 243 228 131 70-90 mg/dl Test 03/30/16 23:59 03/31/16 05:32 Range/Units Bedside Glucose 126 120 70-90 mg/dl Assessment & Plan post op day #1 no acute issues can prob d/c ngt. not fx and abdomen completely soft/nd increase activity pain control
[2016-03-31] MEDS: ALUMINUM/MAGNESIUM SUSP 30 ML UDC NG SCH ×5 (07:43→20:24)
[2016-03-31] MEDS: FLUTICASONE PROPIONATE NA SPR 16 GM BTL NAE SCH (07:44)
[2016-03-31] MEDS: MoRPHine SULFATE 4 MG/ML 1 ML CARP\\VIAL IV PRN (07:53)
[2016-03-31 09:37] LABS: BUN/CREATININE RATIO 16.2 (10-20); CALCIUM 8.2 mg/dl (8.5-10.1); CREATININE 1.6 mg/dl (0.60-1.20); POTASSIUM 4.8 mmol/L (3.5-5.1)
[2016-03-31 10:07] LABS: BASO % 0.2 %; BASO ABS # 0.03 K/uL (0-0.2); COMPLETE YES; EOS % 0.7 %; HEMATOCRIT 37.5 % (37-47); IG% 0.2 %; LYMPH % 10.3 %; LYMPH ABS # 1.71 K/uL (1.2-3.4); MEAN CELL VOLUME 90.8 fL (80-100); MEAN CORPUSCULAR HGB CONC 33.1 g/dl (32-36); MEAN PLATELET VOLUME 8.5 fL (7.4-10.4); MONO % 5.8 %; NEUT % 82.8 %; PLATELET COUNT 194 K/uL (130-400); RED BLOOD COUNT 4.13 M/uL (4.2-5.4); WHITE BLOOD COUNT 16.59 K/uL (4.8-10.8)
--- NOTE | 2016-03-31 10:39 | Progress Note ---
Subjective Date of Service: Mar 31, 2016. Subjective Pt evaluation today including: conversation w/ patient, physical exam, chart review, lab review, review of studies, review of inpatient medication list Pt resting in bed Mild distress and anxiety noted States can "take half of her 10mg pill if needed" for anxiety No nausea or vomiting Abd pain is 5/10 at this time and diffuse in nature Problem List Medical Problems: (1) Altered mental status Status: Acute (2) Hyperglycemia Status: Acute (3) Hyperglycemia due to type 2 diabetes mellitus Status: Acute (4) Incarcerated right inguinal hernia Status: Acute (5) Left leg cellulitis Status: Acute (6) Leukocytosis Status: Acute (7) Pneumonia Status: Acute (8) Pneumonitis Status: Acute (9) Renal insufficiency Status: Acute (10) Respiratory distress Status: Acute (11) Small bowel obstruction Status: Acute (12) UTI (urinary tract infection) Status: Acute Review of Systems Constitutional: No chills, No fever Respiratory: No cough, No shortness of breath, No sputum, No wheezing Cardiac: No chest pain, No orthopnea Abdomen: + pain, No nausea, No vomiting Musculoskeletal: No joint pain, No muscle pain Female : No dysuria, No urinary frequency Neurologic: No memory loss, No paralysis Objective Vital Signs Date Time Temp Pulse Resp B/P Pulse Ox O2 Delivery O2 Flow Rate FiO2 03/31/16 08:07 37.2 59 20 169/67 95 Nasal Cannula 3.0 03/31/16 08:00 Nasal Cannula 3.0 03/31/16 05:39 58 03/31/16 04:00 96 Nasal Cannula 3.0 03/31/16 04:00 37.1 62 16 148/59 96 3.0 03/31/16 00:00 37.0 64 20 147/79 97 3.0 03/31/16 00:00 97 Nasal Cannula 3.0 03/30/16 23:39 64 145/75 03/30/16 20:00 99 Nasal Cannula 3.0 03/30/16 19:50 37.2 60 18 149/76 99 3.0 03/30/16 17:29 62 150/71 03/30/16 16:00 Nasal Cannula 3.0 03/30/16 15:32 37.1 61 18 140/57 98 03/30/16 15:30 36.8 61 20 140/57 98 Nasal Cannula 3.0 03/30/16 14:20 59 17 148/74 100 Nasal Cannula 3.0 03/30/16 13:46 62 145/56 03/30/16 13:20 61 17 128/73 97 Nasal Cannula 3.0 03/30/16 12:50 36.4 62 17 144/77 91 Nasal Cannula 2.0 03/30/16 12:50 91 Nasal Cannula 2.0 03/30/16 12:05 36.6 60 22 163/57 95 Nasal Cannula 2 03/30/16 12:04 36.6 60 22 163/57 95 Nasal Cannula 2 03/30/16 11:55 60 22 165/60 100 Nasal Cannula 3 03/30/16 11:45 60 18 170/58 98 Mask 10 03/30/16 11:35 60 18 148/51 93 Mask 10 03/30/16 11:25 61 19 166/53 93 Mask 10 03/30/16 11:17 36.7 64 16 166/61 83 Mask 15 Physical Exam General Appearance: WD/WN, + mild distress Neck: supple, no adenopathy Respiratory/Chest: lungs clear, normal breath sounds Cardiovascular: no edema, no gallop Abdomen: soft, + tenderness Extremities: normal range of motion, non-tender Neurologic/Psychiatric: alert, oriented x 3 Laboratory Results Last 24 Hours Test 03/30/16 11:36 03/30/16 13:29 03/30/16 17:48 03/30/16 23:59 Bedside Glucose 243 mg/dl 228 mg/dl 131 mg/dl 126 mg/dl Test 03/31/16 05:32 03/31/16 08:58 Bedside Glucose 120 mg/dl White Blood Count 16.59 K/uL Red Blood Count 4.13 M/uL Hemoglobin 12.4 g/dL Hematocrit 37.5 % Mean Corpuscular Volume 90.8 fL Mean Corpuscular Hemoglobin 30.0 pg Mean Corpuscular Hemoglobin Concent 33.1 g/dl Platelet Count 194 K/uL Mean Platelet Volume 8.5 fL Neutrophils (%) (Auto) 82.8 % Lymphocytes (%) (Auto) 10.3 % Monocytes (%) (Auto) 5.8 % Eosinophils (%) (Auto) 0.7 % Basophils (%) (Auto) 0.2 % Neutrophils # (Auto) 13.74 K/uL Lymphocytes # (Auto) 1.71 K/uL Monocytes # (Auto) 0.96 K/uL Eosinophils # (Auto) 0.11 K/uL Basophils # (Auto) 0.03 K/uL RDW Standard Deviation 46.4 fL RDW Coefficient of Variation 14.2 % Immature Granulocyte % (Auto) 0.2 % Immature Granulocyte # (Auto) 0.04 K/uL Sodium Level 142 mmol/L Potassium Level 4.8 mmol/L Chloride Level 107 mmol/L Carbon Dioxide Level 29 mmol/L Anion Gap 6.0 mmol/L Blood Urea Nitrogen 26 mg/dl Creatinine 1.60 mg/dl Est Creatinine Clear Calc Drug Dose 24.1 ml/min Estimated GFR () 33.5 Estimated GFR (Non- 28.9 BUN/Creatinine Ratio 16.2 Random Glucose 137 mg/dl Calcium Level 8.2 mg/dl Assessment and Plan 85 y/o F w/complex Hx including CHF, AF, CAD, DM, CKD 3 - presents with lower abdominal pain and nausea occurring 8 hours prior to arrival. SBO and right inguinal incarcerated hernia - abdomen is clinically acute and surgery was informed by the ER at the time of admission. No leukocytosis or fevers. Pt is high risk for surgery with cardiac hx of CAD/CHF. Recent ECHO reviewed and pt is an acceptable candidate. To OR 03/30/15 for reduction and repair of incarcerated right direct inguinal hernia with partial small bowel resection. Pt tolerated procedure well and NGT was removed on 03/31/15. Will keep NPO at this time and leave diet advancement to discretion of surgery service Chronic systolic CHF with noted EF 45% - she is not currently decompensated - we will hold her Lasix currently and provide scheduled IV Metoprolol with holding parameters. AF with pacer - she does not take anticoagulation presumably due to fall risk - rhythm is paced on admission - IV Metoprolol provided - she takes PO Diltiazem in addition to a B katie normally and IV Diltiazem can be provided as needed - she will be monitored on telemetry CKD stage 3 - Creatinine is at baseline - IVF - trend labs daily DM - sliding scale - Q6H POC Full code
[2016-03-31] MEDS ORDERED: FLUCONAZOLE 200MG / NSS IV SCH (16:00)
[2016-04-01] VITALS (11 sets, daily range): BP systolic 114–183; BP diastolic 48–97; PULSE 62–136; TEMP 36.6–36.9; O2SAT 95–98
[2016-04-01] MEDS: MoRPHine SULFATE 4 MG/ML 1 ML CARP\\VIAL IV PRN ×2 (03:05→19:21)
[2016-04-01] MEDS ORDERED: DILTIAZEM BOLUS / DRIP IV STA (04:43)
[2016-04-01] MEDS: DILTIAZEM HCL INJ 125 MG in DEXTROSE 5% 100ML IV PRN ×3 (05:14→06:18)
[2016-04-01] MEDS: INSULIN ASPART 100 UNITS/ML 3 ML PEN SC SCH ×4 (06:00→21:28)
[2016-04-01] MEDS: METOPROLOL TARTRATE 1 MG/ML VIAL IV. SCH (06:01)
[2016-04-01 06:37] LABS: BASO % 0.1 %; BASO ABS # 0.02 K/uL (0-0.2); COMPLETE YES; EOS % 0.8 %; HEMATOCRIT 36.8 % (37-47); IG% 0.3 %; LYMPH % 9.7 %; LYMPH ABS # 1.64 K/uL (1.2-3.4); MEAN CELL VOLUME 93.4 fL (80-100); MEAN CORPUSCULAR HEMOGLOBIN 29.9 pg (25-34); MEAN CORPUSCULAR HGB CONC 32.1 g/dl (32-36); MEAN PLATELET VOLUME 9.2 fL (7.4-10.4); MONO % 5.5 %; NEUT % 83.6 %; PLATELET COUNT 184 K/uL (130-400); RED BLOOD COUNT 3.94 M/uL (4.2-5.4)
[2016-04-01] MEDS ORDERED: NURSING VERBAL MED ORDER ONE ×3 (06:45→14:15)
[2016-04-01] MEDS ORDERED: NSS + 20MEQ KCL 1000ML 1,000 ML IV SCH (07:00)
[2016-04-01 07:04] LABS: BUN/CREATININE RATIO 20.1 (10-20); CALCIUM 8.5 mg/dl (8.5-10.1); CREATININE 1.6 mg/dl (0.60-1.20); POTASSIUM 5.2 mmol/L (3.5-5.1)
--- NOTE | 2016-04-01 08:22 | Surgery Progress Note ---
Surgery Progress Note Date of Service Apr 01, 2016. Subjective Post OP Day: 2 looks/feels much better today. pain controlled. Objective Vital Signs: Date Time Temp Pulse Resp B/P Pulse Ox O2 Delivery O2 Flow Rate FiO2 04/01/16 08:14 36.9 66 20 167/67 98 Nasal Cannula 3.0 04/01/16 06:14 128 16 114/78 04/01/16 06:01 136 119/64 04/01/16 05:45 136 16 119/54 04/01/16 04:30 135 20 158/69 04/01/16 04:10 95 Nasal Cannula 3.0 04/01/16 04:10 36.9 121 20 120/80 95 3.0 04/01/16 00:00 36.9 130 20 116/48 98 Nasal Cannula 3.0 04/01/16 00:00 98 Nasal Cannula 3.0 03/31/16 23:30 124 116/48 03/31/16 20:00 97 Nasal Cannula 3.0 03/31/16 19:49 37.2 64 16 154/52 97 Nasal Cannula 3.0 03/31/16 18:21 66 159/67 03/31/16 16:00 Nasal Cannula 3.0 03/31/16 15:21 36.6 66 20 159/67 97 Nasal Cannula 3.0 03/31/16 12:32 63 154/69 03/31/16 12:00 Nasal Cannula 3.0 03/31/16 11:37 37.1 63 20 154/69 97 Nasal Cannula 3.0 General Appearance: no apparent distress Head: normocephalic, atraumatic Neck: supple Abdomen: non tender, non distended, soft Incision(s): clean, dry, intact, no erythema Extremities: normal range of motion Laboratory Results: Results Past 24 Hours Test 03/31/16 08:58 03/31/16 10:53 03/31/16 18:09 03/31/16 23:24 Range/Units White Blood Count 16.59 4.8-10.8 K/uL Red Blood Count 4.13 4.2-5.4 M/uL Hemoglobin 12.4 12.0-16.0 g/dL Hematocrit 37.5 37-47 % Mean Corpuscular Volume 90.8 80-100 fL Mean Corpuscular Hemoglobin 30.0 25-34 pg Mean Corpuscular Hemoglobin Concent 33.1 32-36 g/dl Platelet Count 194 130-400 K/uL Mean Platelet Volume 8.5 7.4-10.4 fL Neutrophils (%) (Auto) 82.8 % Lymphocytes (%) (Auto) 10.3 % Monocytes (%) (Auto) 5.8 % Eosinophils (%) (Auto) 0.7 % Basophils (%) (Auto) 0.2 % Neutrophils # (Auto) 13.74 1.4-6.5 K/uL Lymphocytes # (Auto) 1.71 1.2-3.4 K/uL Monocytes # (Auto) 0.96 0.11-0.59 K/uL Eosinophils # (Auto) 0.11 0-0.5 K/uL Basophils # (Auto) 0.03 0-0.2 K/uL RDW Standard Deviation 46.4 36.4-46.3 fL RDW Coefficient of Variation 14.2 11.5-14.5 % Immature Granulocyte % (Auto) 0.2 % Immature Granulocyte # (Auto) 0.04 0.00-0.02 K/uL Sodium Level 142 136-145 mmol/L Potassium Level 4.8 3.5-5.1 mmol/L Chloride Level 107 98-107 mmol/L Carbon Dioxide Level 29 21-32 mmol/L Anion Gap 6.0 3-11 mmol/L Blood Urea Nitrogen 26 7-18 mg/dl Creatinine 1.60 0.60-1.20 mg/dl Est Creatinine Clear Calc Drug Dose 24.1 ml/min Estimated GFR () 33.5 Estimated GFR (Non- 28.9 BUN/Creatinine Ratio 16.2 10-20 Random Glucose 137 70-99 mg/dl Calcium Level 8.2 8.5-10.1 mg/dl Bedside Glucose 150 143 140 70-90 mg/dl Test 04/01/16 05:19 04/01/16 05:51 Range/Units White Blood Count 16.90 4.8-10.8 K/uL Red Blood Count 3.94 4.2-5.4 M/uL Hemoglobin 11.8 12.0-16.0 g/dL Hematocrit 36.8 37-47 % Mean Corpuscular Volume 93.4 80-100 fL Mean Corpuscular Hemoglobin 29.9 25-34 pg Mean Corpuscular Hemoglobin Concent 32.1 32-36 g/dl Platelet Count 184 130-400 K/uL Mean Platelet Volume 9.2 7.4-10.4 fL Neutrophils (%) (Auto) 83.6 % Lymphocytes (%) (Auto) 9.7 % Monocytes (%) (Auto) 5.5 % Eosinophils (%) (Auto) 0.8 % Basophils (%) (Auto) 0.1 % Neutrophils # (Auto) 14.13 1.4-6.5 K/uL Lymphocytes # (Auto) 1.64 1.2-3.4 K/uL Monocytes # (Auto) 0.93 0.11-0.59 K/uL Eosinophils # (Auto) 0.13 0-0.5 K/uL Basophils # (Auto) 0.02 0-0.2 K/uL RDW Standard Deviation 49.3 36.4-46.3 fL RDW Coefficient of Variation 14.5 11.5-14.5 % Immature Granulocyte % (Auto) 0.3 % Immature Granulocyte # (Auto) 0.05 0.00-0.02 K/uL Sodium Level 141 136-145 mmol/L Potassium Level 5.2 3.5-5.1 mmol/L Chloride Level 106 98-107 mmol/L Carbon Dioxide Level 26 21-32 mmol/L Anion Gap 9.0 3-11 mmol/L Blood Urea Nitrogen 32 7-18 mg/dl Creatinine 1.60 0.60-1.20 mg/dl Est Creatinine Clear Calc Drug Dose 24.1 ml/min Estimated GFR () 33.5 Estimated GFR (Non- 28.9 BUN/Creatinine Ratio 20.1 10-20 Random Glucose 152 70-99 mg/dl Calcium Level 8.5 8.5-10.1 mg/dl Bedside Glucose 165 70-90 mg/dl Assessment & Plan apr 01, 2016 doing much better today more alert will try liquids today. may take pills with applesauce increase activity/PT/OT wounds look good/dressings changed spoke with her son that lives in [place] regarding care Mar 31 2016 post op day #1 no acute issues can prob d/c ngt. not fx and abdomen completely soft/nd increase activity pain control post op day #1 no acute issues can prob d/c ngt. not fx and abdomen completely soft/nd increase activity pain control
--- NOTE | 2016-04-01 10:03 | Progress Note ---
Subjective Date of Service: Apr 01, 2016. Subjective Pt evaluation today including: conversation w/ patient, physical exam, chart review, lab review, review of studies, review of inpatient medication list Patient denies pain Sitting upright in chair No further question or concerns Tolerating IVF and diet No N/V No BM noted Problem List Medical Problems: (1) Altered mental status Status: Acute (2) Hyperglycemia Status: Acute (3) Hyperglycemia due to type 2 diabetes mellitus Status: Acute (4) Incarcerated right inguinal hernia Status: Acute (5) Left leg cellulitis Status: Acute (6) Leukocytosis Status: Acute (7) Pneumonia Status: Acute (8) Pneumonitis Status: Acute (9) Renal insufficiency Status: Acute (10) Respiratory distress Status: Acute (11) Small bowel obstruction Status: Acute (12) UTI (urinary tract infection) Status: Acute Review of Systems Constitutional: No chills, No fever Respiratory: No cough, No dyspnea on exertion, No shortness of breath, No sputum, No wheezing Cardiac: No chest pain, No orthopnea Abdomen: No nausea, No pain, No vomiting Musculoskeletal: No joint pain, No muscle pain Female : No dysuria, No urinary frequency Objective Vital Signs Date Time Temp Pulse Resp B/P Pulse Ox O2 Delivery O2 Flow Rate FiO2 04/01/16 08:14 36.9 66 20 167/67 98 Nasal Cannula 3.0 04/01/16 08:00 Nasal Cannula 2.0 04/01/16 06:14 128 16 114/78 04/01/16 06:01 136 119/64 04/01/16 05:45 136 16 119/54 04/01/16 04:30 135 20 158/69 04/01/16 04:10 95 Nasal Cannula 3.0 04/01/16 04:10 36.9 121 20 120/80 95 3.0 04/01/16 00:00 36.9 130 20 116/48 98 Nasal Cannula 3.0 04/01/16 00:00 98 Nasal Cannula 3.0 03/31/16 23:30 124 116/48 03/31/16 20:00 97 Nasal Cannula 3.0 03/31/16 19:49 37.2 64 16 154/52 97 Nasal Cannula 3.0 03/31/16 18:21 66 159/67 03/31/16 16:00 Nasal Cannula 3.0 03/31/16 15:21 36.6 66 20 159/67 97 Nasal Cannula 3.0 03/31/16 12:32 63 154/69 03/31/16 12:00 Nasal Cannula 3.0 03/31/16 11:37 37.1 63 20 154/69 97 Nasal Cannula 3.0 Physical Exam General Appearance: WD/WN, no apparent distress Neck: supple, no adenopathy Respiratory/Chest: lungs clear, normal breath sounds Cardiovascular: no edema, no gallop Abdomen: non tender, soft Neurologic/Psychiatric: alert, oriented x 3 Laboratory Results Last 24 Hours Test 03/31/16 10:53 03/31/16 18:09 03/31/16 23:24 04/01/16 05:19 Bedside Glucose 150 mg/dl 143 mg/dl 140 mg/dl White Blood Count 16.90 K/uL Red Blood Count 3.94 M/uL Hemoglobin 11.8 g/dL Hematocrit 36.8 % Mean Corpuscular Volume 93.4 fL Mean Corpuscular Hemoglobin 29.9 pg Mean Corpuscular Hemoglobin Concent 32.1 g/dl Platelet Count 184 K/uL Mean Platelet Volume 9.2 fL Neutrophils (%) (Auto) 83.6 % Lymphocytes (%) (Auto) 9.7 % Monocytes (%) (Auto) 5.5 % Eosinophils (%) (Auto) 0.8 % Basophils (%) (Auto) 0.1 % Neutrophils # (Auto) 14.13 K/uL Lymphocytes # (Auto) 1.64 K/uL Monocytes # (Auto) 0.93 K/uL Eosinophils # (Auto) 0.13 K/uL Basophils # (Auto) 0.02 K/uL RDW Standard Deviation 49.3 fL RDW Coefficient of Variation 14.5 % Immature Granulocyte % (Auto) 0.3 % Immature Granulocyte # (Auto) 0.05 K/uL Sodium Level 141 mmol/L Potassium Level 5.2 mmol/L Chloride Level 106 mmol/L Carbon Dioxide Level 26 mmol/L Anion Gap 9.0 mmol/L Blood Urea Nitrogen 32 mg/dl Creatinine 1.60 mg/dl Est Creatinine Clear Calc Drug Dose 24.1 ml/min Estimated GFR () 33.5 Estimated GFR (Non- 28.9 BUN/Creatinine Ratio 20.1 Random Glucose 152 mg/dl Calcium Level 8.5 mg/dl Test 04/01/16 05:51 Bedside Glucose 165 mg/dl Assessment and Plan 85 y/o F w/complex Hx including CHF, AF, CAD, DM, CKD 3 - presents with lower abdominal pain and nausea occurring 8 hours prior to arrival. SBO and right inguinal incarcerated hernia - abdomen is clinically acute and surgery was informed by the ER at the time of admission. No leukocytosis or fevers. Pt is high risk for surgery with cardiac hx of CAD/CHF. Recent ECHO reviewed and pt is an acceptable candidate. To OR 03/30/15 for reduction and repair of incarcerated right direct inguinal hernia with partial small bowel resection. Pt tolerated procedure well, NGT was removed on 03/31/15. Diet advancement to discretion of surgery service Chronic systolic CHF with noted EF 45% - she is not currently decompensated - we will hold her Lasix currently and provide scheduled IV Metoprolol with holding parameters. Change to PO meds once tolerating PO AF with pacer - she does not take anticoagulation presumably due to fall risk - rhythm is paced on admission - IV Metoprolol provided - she takes PO Diltiazem in addition to a B katie normally and IV Diltiazem can be provided as needed - she will be monitored on telemetry. Transition to PO meds once tolerating PO CKD stage 3 - Creatinine is at baseline - IVF - trend labs daily DM - sliding scale - Q6H POC Full code
[2016-04-01] MEDS ORDERED: DOCUSATE SODIUM 100 MG CAP PO PRN (10:15)
[2016-04-01] MEDS: FLUCONAZOLE 100 MG TAB PO SCH ×2 (10:30→21:32)
[2016-04-01] MEDS ORDERED: FLUCONAZOLE CONSULT ACTIVE PRN (10:30)
[2016-04-01] MEDS: ALUMINUM/MAGNESIUM SUSP 30 ML UDC NG SCH ×4 (10:30→21:30)
[2016-04-01] MEDS: FLUTICASONE PROPIONATE NA SPR 16 GM BTL NAE SCH (10:30)
[2016-04-01] MEDS: METOPROLOL TARTRATE 100 MG TAB PO SCH (21:31)
[2016-04-02] VITALS (8 sets, daily range): BP systolic 114–166; BP diastolic 64–83; PULSE 60–91; TEMP 36.7–36.9; O2SAT 92–99
[2016-04-02] MEDS: MoRPHine SULFATE 4 MG/ML 1 ML CARP\\VIAL IV PRN (01:05)
[2016-04-02 06:06] LABS: BASO % 0.1 %; BASO ABS # 0.01 K/uL (0-0.2); COMPLETE YES; EOS % 2.2 %; IG% 0.2 %; LYMPH % 12.8 %; LYMPH ABS # 1.22 K/uL (1.2-3.4); MEAN CORPUSCULAR HEMOGLOBIN 30.5 pg (25-34); MEAN CORPUSCULAR HGB CONC 33.1 g/dl (32-36); MEAN PLATELET VOLUME 8.7 fL (7.4-10.4); MONO % 6.9 %; NEUT % 77.8 %; PLATELET COUNT 148 K/uL (130-400); RED BLOOD COUNT 3.48 M/uL (4.2-5.4); WHITE BLOOD COUNT 9.55 K/uL (4.8-10.8)
[2016-04-02] MEDS: LEVOTHYROXINE 50 MCG TAB PO SCH (06:20)
[2016-04-02 06:35] LABS: BUN/CREATININE RATIO 22.8 (10-20); CREATININE 1.4 mg/dl (0.60-1.20)
--- NOTE | 2016-04-02 06:47 | Clinical Documentation Query ---
CLINICAL DOCUMENTATION QUERY 85 year old female who presents to the Emergency Room with complaints of persistent lower abdominal pain. Operative record states, "Incarcerated direct right inguinal hernia with ischemic bowel." In your clinical opinion is this patient being managed for: ( X ) "Acute" small bowel ischemia in setting of incarcerated inguinal hernia treated with surgical reduction and resection of ischemic section. ( ) Other explanation of clinical findings (Please Explain) ( ) Unable to determine (Please Define) ( ) Need to Discuss ( ) Not Agree The medical record reflects the following clinical findings, treatment, and risk factors. Clinical Indicators: As stated above. The word "acute" if applicable is important for capturing correct severity of illness (SOI) for this patient. Treatment: Emergent surgical intervention with resection of ischemic section of small bowel. Risk Factors: Incarcerated small bowel Please clarify and document your clinical opinion in the progress notes and discharge summary. Terms such as "probable", "suspected", "likely", "questionable", "possible", or "still to be ruled out" are acceptable. IF IN AGREEMENT, YOU MUST DOCUMENT ABOVE DIAGNOSTIC STATEMENT IN DAILY PROGRESS NOTES AND DISCHARGE SUMMARY. This document is not part of the patient's record. Thank You, Ryne Patel, SIDDHARTHA [phone]
--- NOTE | 2016-04-02 08:08 | Anesthesiology Progress Note ---
Anesthesia Post Op Note Date & Time Apr 02, 2016 at 08:07 Vital Signs Pain Intensity: 0.0 Vital Signs Past 12 Hours Date Time Temp Pulse Resp B/P Pulse Ox O2 Delivery O2 Flow Rate FiO2 04/02/16 08:03 36.7 60 18 166/69 99 Nasal Cannula 2.0 04/02/16 07:45 Nasal Cannula 2.0 04/02/16 04:16 36.8 60 18 144/74 92 Nasal Cannula 2.0 04/02/16 04:00 92 Nasal Cannula 2.0 04/02/16 00:00 36.8 64 20 162/68 98 Nasal Cannula 2.0 04/02/16 00:00 98 Nasal Cannula 2.0 04/01/16 20:10 97 Nasal Cannula 2.0 Notes Mental Status: alert / awake / arousable, participated in evaluation Pt Amnestic to Procedure: Yes Nausea / Vomiting: adequately controlled Pain: adequately controlled Airway Patency, RR, SpO2: stable & adequate BP & HR: stable & adequate Hydration State: stable & adequate Anesthetic Complications: no major complications apparent
[2016-04-02] MEDS: ASPIRIN 81 MG ECTAB PO SCH (09:20)
[2016-04-02] MEDS: ESCITALOPRAM OXALATE 10 MG TAB PO SCH (09:20)
[2016-04-02] MEDS: LORATADINE 10 MG TAB PO SCH (09:20)
--- NOTE | 2016-04-02 09:20 | Clinical Documentation Query ---
CLINICAL DOCUMENTATION QUERY 85 year old female who presents to the Emergency Room with complaints of persistent lower abdominal pain. Operative record states, "Incarcerated direct right inguinal hernia with ischemic bowel." In your clinical opinion is this patient being managed for: ( ) "Acute" small bowel ischemia in setting of incarcerated inguinal hernia treated with surgical reduction and resection of ischemic section. ( ) Other explanation of clinical findings (Please Explain) ( ) Unable to determine (Please Define) ( ) Need to Discuss ( ) Not Agree The medical record reflects the following clinical findings, treatment, and risk factors. Clinical Indicators: As stated above. The word "acute" if applicable is important for capturing correct severity of illness (SOI) for this patient. Treatment: Emergent surgical intervention with resection of ischemic section of small bowel. Risk Factors: Incarcerated small bowel Please clarify and document your clinical opinion in the progress notes and discharge summary. Terms such as "probable", "suspected", "likely", "questionable", "possible", or "still to be ruled out" are acceptable. IF IN AGREEMENT, YOU MUST DOCUMENT ABOVE DIAGNOSTIC STATEMENT IN DAILY PROGRESS NOTES AND DISCHARGE SUMMARY. This document is not part of the patient's record. Thank You, Ryne Patel, SIDDHARTHA [phone]
[2016-04-02] MEDS: DILTIAZEM HCL 240 MG CAPCR PO SCH (09:21)
[2016-04-02] MEDS: FLUCONAZOLE 100 MG TAB PO SCH ×2 (09:21→19:50)
[2016-04-02] MEDS: METOPROLOL TARTRATE 100 MG TAB PO SCH ×2 (09:22→19:50)
[2016-04-02] MEDS: ALUMINUM/MAGNESIUM SUSP 30 ML UDC NG SCH ×2 (09:23→09:34)
[2016-04-02] MEDS: FLUTICASONE PROPIONATE NA SPR 16 GM BTL NAE SCH (09:23)
[2016-04-02] MEDS: INSULIN ASPART 100 UNITS/ML 3 ML PEN SC SCH ×4 (09:25→19:50)
[2016-04-02] MEDS: INSULIN GLARGINE SOLOSTAR 100 UNITS/ML 3 ML PEN SC SCH (09:26)
--- NOTE | 2016-04-02 14:26 | Surgery Progress Note ---
Surgery Progress Note Date of Service Apr 02, 2016. Subjective Post OP Day: 3 + bowel movement, + diet (tolerated clear liquids), + feeling well, No nausea, No vomiting Objective Vital Signs: Date Time Temp Pulse Resp B/P Pulse Ox O2 Delivery O2 Flow Rate FiO2 04/02/16 12:39 36.8 60 18 153/64 98 Nasal Cannula 2.0 04/02/16 12:00 Nasal Cannula 1.0 04/02/16 08:03 36.7 60 18 166/69 99 Nasal Cannula 2.0 04/02/16 07:45 Nasal Cannula 2.0 04/02/16 04:16 36.8 60 18 144/74 92 Nasal Cannula 2.0 04/02/16 04:00 92 Nasal Cannula 2.0 04/02/16 00:00 36.8 64 20 162/68 98 Nasal Cannula 2.0 04/02/16 00:00 98 Nasal Cannula 2.0 04/01/16 20:10 97 Nasal Cannula 2.0 04/01/16 19:26 36.8 96 18 130/72 97 Nasal Cannula 2.0 04/01/16 17:36 73 165/97 04/01/16 16:00 Nasal Cannula 2.0 04/01/16 15:09 36.8 76 18 183/66 98 Nasal Cannula 2.0 Abdomen: normal bowel sounds, non distended, soft Laboratory Results: Results Past 24 Hours Test 04/01/16 16:38 04/01/16 20:17 04/02/16 05:08 04/02/16 06:55 Range/Units Bedside Glucose 199 297 172 70-90 mg/dl White Blood Count 9.55 4.8-10.8 K/uL Red Blood Count 3.48 4.2-5.4 M/uL Hemoglobin 10.6 12.0-16.0 g/dL Hematocrit 32.0 37-47 % Mean Corpuscular Volume 92.0 80-100 fL Mean Corpuscular Hemoglobin 30.5 25-34 pg Mean Corpuscular Hemoglobin Concent 33.1 32-36 g/dl Platelet Count 148 130-400 K/uL Mean Platelet Volume 8.7 7.4-10.4 fL Neutrophils (%) (Auto) 77.8 % Lymphocytes (%) (Auto) 12.8 % Monocytes (%) (Auto) 6.9 % Eosinophils (%) (Auto) 2.2 % Basophils (%) (Auto) 0.1 % Neutrophils # (Auto) 7.43 1.4-6.5 K/uL Lymphocytes # (Auto) 1.22 1.2-3.4 K/uL Monocytes # (Auto) 0.66 0.11-0.59 K/uL Eosinophils # (Auto) 0.21 0-0.5 K/uL Basophils # (Auto) 0.01 0-0.2 K/uL RDW Standard Deviation 48.3 36.4-46.3 fL RDW Coefficient of Variation 14.3 11.5-14.5 % Immature Granulocyte % (Auto) 0.2 % Immature Granulocyte # (Auto) 0.02 0.00-0.02 K/uL Sodium Level 138 136-145 mmol/L Potassium Level 5.0 3.5-5.1 mmol/L Chloride Level 102 98-107 mmol/L Carbon Dioxide Level 30 21-32 mmol/L Anion Gap 6.0 3-11 mmol/L Blood Urea Nitrogen 32 7-18 mg/dl Creatinine 1.40 0.60-1.20 mg/dl Est Creatinine Clear Calc Drug Dose 27.6 ml/min Estimated GFR () 39.3 Estimated GFR (Non- 33.9 BUN/Creatinine Ratio 22.8 10-20 Random Glucose 162 70-99 mg/dl Calcium Level 8.0 8.5-10.1 mg/dl Test 04/02/16 11:33 Range/Units Bedside Glucose 105 70-90 mg/dl Assessment & Plan S/P reduction and repair of right incarcerated inguinal hernia with partial small bowel resection Doing well Yolerating diet Bowel function has returned WBC normal Increase diet Continue OT/PT
--- NOTE | 2016-04-02 19:07 | Family Medicine Progress Note ---
Progress Note Date of Service Apr 02, 2016. Subjective Pt evaluation today including: conversation w/ patient, physical exam, chart review Pain: Minimal PO Intake: Advancing slowly Voiding: no voiding problems, no incontinence, saenz catheter in place Doing well at this time, no complaints Nursing notes that she has been having bowel incontinence with the Magnesium Oxide No other issues overnight Notes, she is coming from home and lives in supervised living in [place] Additional Comments: Review of systems negative unless stated above. Medications Current Inpatient Medications Medications (Trade) Dose Ordered Sig/Leslee Route Start Time Stop Time Status Last Admin Dose Admin Ioversol (Optiray 320) 100 ml UD PRN IV 03/30/16 04:00 04/03/16 03:59 Albuterol Sulfate (Ventolin 0.5% 2.5MG/0.5ML Neb) 2.5 mg Q4H PRN INH 03/30/16 05:45 04/29/16 05:44 Fluticasone Propionate (Flonase Nasal Earp) 2 sprays DAILY ANTOINE 03/30/16 09:00 04/29/16 08:59 04/02/16 09:23 2 SPRAYS Miscellaneous Information (Order Awaiting Action) 1 ea QS N/A 03/30/16 08:00 04/29/16 07:59 Ondansetron HCl (Zofran Inj) 4 mg Q6H PRN IV 03/30/16 05:45 04/29/16 05:44 Nitroglycerin (Nitrostat Tab) 0.4 mg UD PRN SL 03/30/16 05:45 04/29/16 05:44 Morphine Sulfate (MoRPHine SULFATE INJ) 4 mg Q1H PRN IV 03/30/16 11:00 04/13/16 10:59 04/02/16 01:05 4 MG Al Hydroxide/Mg Hydroxide (Maalox Susp) 30 ml QID NG 03/30/16 13:00 04/29/16 12:59 Future Hold 04/01/16 21:30 30 ML Glucose (Glucose 40% Gel) 15-30 GRAMS 15 GRAMS... UD PRN PO 03/30/16 14:00 04/29/16 13:59 Glucose (Glucose Chew Tab) 4-8 Tablets 4 Tabl... UD PRN PO 03/30/16 14:00 04/29/16 13:59 Dextrose (Dextrose 50% 50ML Syringe) 25-50ML OF 50% DW IV FOR... UD PRN IV 03/30/16 14:00 04/29/16 13:59 Glucagon 1 mg 1 mg UD PRN SQ 03/30/16 14:00 04/29/16 13:59 Diltiazem HCl/ Dextrose (Cardizem Inj/D5 100ml) 125 ml @ 0 mls/hr Q0M PRN IV 04/01/16 05:00 05/01/16 04:59 Future Hold 04/01/16 06:18 15 MLS/HR Aspirin (Ecotrin Tab) 81 mg DAILY PO 04/02/16 09:00 05/02/16 08:59 04/02/16 09:20 81 MG Docusate Sodium (coLACE CAP) 100 mg BID PRN PO 04/01/16 10:15 05/01/16 10:14 Escitalopram Oxalate (Lexapro Tab) 5 mg DAILY PO 04/02/16 09:00 05/02/16 08:59 04/02/16 09:20 5 MG Fluconazole (Diflucan Tab) 100 mg BID PO 04/01/16 10:30 04/10/16 10:29 04/02/16 09:21 100 MG Insulin Glargine (Lantus Solostar Pen) 30 unit QAM SC 04/02/16 09:00 05/02/16 08:59 04/02/16 09:26 30 UNIT Levothyroxine Sodium (Synthroid Tab) 50 mcg DAILYBB PO 04/02/16 06:00 05/02/16 05:59 04/02/16 06:20 50 MCG Loratadine (Claritin Tab) 10 mg QAM PO 04/02/16 09:00 05/02/16 08:59 04/02/16 09:20 10 MG Metoprolol Tartrate (Lopressor Tab) 100 mg BID PO 04/01/16 21:00 05/01/16 20:59 04/02/16 09:22 100 MG Diltiazem HCl (Cardizem Cd Cap) 240 mg QAM PO 04/02/16 09:00 05/02/16 08:59 04/02/16 09:21 240 MG Fluconazole (Consult) 1 ea UD PRN N/A 04/01/16 10:30 05/01/16 10:29 Insulin Aspart (novoLOG ASPART) SLIDING SCALE If C... ACHS SC 04/01/16 16:15 05/01/16 16:14 04/02/16 17:42 3 UNITS Objective Vital Signs Date Time Temp Pulse Resp B/P Pulse Ox O2 Delivery O2 Flow Rate FiO2 04/02/16 16:00 Nasal Cannula 1.0 04/02/16 15:06 36.8 65 18 114/83 93 Nasal Cannula 2.0 04/02/16 12:39 36.8 60 18 153/64 98 Nasal Cannula 2.0 04/02/16 12:00 Nasal Cannula 1.0 04/02/16 08:03 36.7 60 18 166/69 99 Nasal Cannula 2.0 04/02/16 07:45 Nasal Cannula 2.0 04/02/16 04:16 36.8 60 18 144/74 92 Nasal Cannula 2.0 04/02/16 04:00 92 Nasal Cannula 2.0 04/02/16 00:00 36.8 64 20 162/68 98 Nasal Cannula 2.0 04/02/16 00:00 98 Nasal Cannula 2.0 04/01/16 20:10 97 Nasal Cannula 2.0 04/01/16 19:26 36.8 96 18 130/72 97 Nasal Cannula 2.0 Physical Exam General Appearance: WD/WN, no apparent distress Eyes: normal inspection, EOMI ENT: hearing grossly normal, pharynx normal Neck: supple, no adenopathy, no JVD Respiratory/Chest: lungs clear, no respiratory distress Cardiovascular: regular rate, rhythm, no gallop, no murmur Abdomen: + pertinent finding (anterior abdominal incision with bandage covering ; minimal abdominal tenderness to palpation; no rigidity) Extremities: non-tender, no pedal edema Neurologic/Psychiatric: alert, normal mood/affect, oriented x 3 Skin: normal color, warm/dry, no rash Lymphatic: no adenopathy Laboratory Results Last 24 Hours Test 04/01/16 20:17 04/02/16 05:08 04/02/16 06:55 04/02/16 11:33 Bedside Glucose 297 mg/dl 172 mg/dl 105 mg/dl White Blood Count 9.55 K/uL Red Blood Count 3.48 M/uL Hemoglobin 10.6 g/dL Hematocrit 32.0 % Mean Corpuscular Volume 92.0 fL Mean Corpuscular Hemoglobin 30.5 pg Mean Corpuscular Hemoglobin Concent 33.1 g/dl Platelet Count 148 K/uL Mean Platelet Volume 8.7 fL Neutrophils (%) (Auto) 77.8 % Lymphocytes (%) (Auto) 12.8 % Monocytes (%) (Auto) 6.9 % Eosinophils (%) (Auto) 2.2 % Basophils (%) (Auto) 0.1 % Neutrophils # (Auto) 7.43 K/uL Lymphocytes # (Auto) 1.22 K/uL Monocytes # (Auto) 0.66 K/uL Eosinophils # (Auto) 0.21 K/uL Basophils # (Auto) 0.01 K/uL RDW Standard Deviation 48.3 fL RDW Coefficient of Variation 14.3 % Immature Granulocyte % (Auto) 0.2 % Immature Granulocyte # (Auto) 0.02 K/uL Sodium Level 138 mmol/L Potassium Level 5.0 mmol/L Chloride Level 102 mmol/L Carbon Dioxide Level 30 mmol/L Anion Gap 6.0 mmol/L Blood Urea Nitrogen 32 mg/dl Creatinine 1.40 mg/dl Est Creatinine Clear Calc Drug Dose 27.6 ml/min Estimated GFR () 39.3 Estimated GFR (Non- 33.9 BUN/Creatinine Ratio 22.8 Random Glucose 162 mg/dl Calcium Level 8.0 mg/dl Test 04/02/16 15:58 04/02/16 16:38 Bedside Glucose 62 mg/dl 102 mg/dl Assessment and Plan 85 year old female who is now day 3 status post partial small bowel resection for obstruction secondary to incarceration in right hernia. "Acute" small bowel ischemia in setting of incarcerated inguinal hernia treated with surgical reduction and resection of ischemic section. - Doing well at this time, pain is minimal - NGT removed 03/31 - Appreciate surgical recommendations Continue to advance diet as tolerated Chronic systolic CHF - No acute decompensation evidence at this time. - Baseline EF 45% - We will hold her Lasix currently and provide scheduled IV Metoprolol with holding parameters - Resume PO medications AF with pacer - Called this afternoon by nursing who noted patient is in AF that is rate controlled - Hold anticoagulation at this time due to falls risk - PO meds resumed Restart Metoprolol, Diltiazem New Hypoxic Respiratory Failure - Patient on 2 L O2 here with no home O2 requirement - ? sec to atelectasis. encourage incentive spirometry - Will wean progressively CKD stage 3 - Cr 1.3 at baseline today Type 2 Diabetes Mellitus - Continue Insulin Sliding scale with AC/HS checks - BSGs today well controlled between 102 and 172 - Hold home medications DVT prophylaxis - SCD knee - Will encourage mobility - If H&H stable tomorrow, will add in prophylactic heparin Depression - Resume Lexapro PO Hypothyroid - Resume Levothyroxine Code Status - Level I Code Disposition - OT/PT - Continue Telemetry monitoring Continued [facility] stay due to: other (post-operative management) Reviewed: Pt Seen/Exam by Me History continuing to feel better. denied any new concerns Constitutional: denies: fever Respiratory: negative: short of breath Cardiovascular: denies chest pain Gastrointestinal/Abdominal: negative: abdominal pain General Appearance: no apparent distress Respiratory: lungs clear, no respiratory distress Cardiovascular: regular rate, rhythm Gastrointestinal: normal bowel sounds, soft, tenderness (incisional) Neurologic/Psychiatric: alert, oriented x 3 Assessment/Plan I have reviewed the medical record and performed a history and physical examination of this patient today. I have discussed the case with Dr. Mendez. The above note reflects my findings, conclusions, and recommendations.
[2016-04-03] VITALS (16 sets, daily range): BP systolic 108–177; BP diastolic 65–76; PULSE 59–113; TEMP 36.7–37.4; O2SAT 95–100
[2016-04-03] MEDS: LEVOTHYROXINE 50 MCG TAB PO SCH (05:11)
[2016-04-03 06:03] LABS: BASO % 0.1 %; BASO ABS # 0.01 K/uL (0-0.2); COMPLETE YES; EOS % 3.2 %; HEMATOCRIT 34.4 % (37-47); IG% 0.3 %; LYMPH % 13.6 %; LYMPH ABS # 1.37 K/uL (1.2-3.4); MEAN CORPUSCULAR HEMOGLOBIN 29.9 pg (25-34); MEAN CORPUSCULAR HGB CONC 32.8 g/dl (32-36); MEAN PLATELET VOLUME 8.8 fL (7.4-10.4); MONO % 7.1 %; NEUT % 75.7 %; PLATELET COUNT 209 K/uL (130-400); RED BLOOD COUNT 3.78 M/uL (4.2-5.4); WHITE BLOOD COUNT 10.07 K/uL (4.8-10.8)
[2016-04-03 06:32] LABS: BUN/CREATININE RATIO 20.8 (10-20); CALCIUM 8.3 mg/dl (8.5-10.1); CREATININE 1.1 mg/dl (0.60-1.20); POTASSIUM 4.5 mmol/L (3.5-5.1)
[2016-04-03] MEDS: FLUTICASONE PROPIONATE NA SPR 16 GM BTL NAE SCH (07:43)
[2016-04-03] MEDS: DILTIAZEM HCL 240 MG CAPCR PO SCH (07:45)
[2016-04-03] MEDS: FLUCONAZOLE 100 MG TAB PO SCH ×2 (07:45→21:12)
[2016-04-03] MEDS: LORATADINE 10 MG TAB PO SCH (07:45)
[2016-04-03] MEDS: ESCITALOPRAM OXALATE 10 MG TAB PO SCH (07:46)
[2016-04-03] MEDS: ASPIRIN 81 MG ECTAB PO SCH (07:46)
[2016-04-03] MEDS: METOPROLOL TARTRATE 100 MG TAB PO SCH ×2 (07:47→21:11)
[2016-04-03] MEDS: INSULIN GLARGINE SOLOSTAR 100 UNITS/ML 3 ML PEN SC SCH (07:57)
[2016-04-03] MEDS: INSULIN ASPART 100 UNITS/ML 3 ML PEN SC SCH ×4 (07:57→21:18)
[2016-04-03] MEDS ORDERED: GUAIFENESIN 600 MG TABCR PO ONE (09:17)
[2016-04-03 10:34] LABS: CKMB/CK RATIO 4.6 (0-3.0); MAGNESIUM 2.4 mg/dl (1.8-2.4)
[2016-04-03] MEDS: ALBUT/IPRATROP 3MG/0.5MG NEB 3 ML VIAL INH SCH ×2 (11:03→19:25)
[2016-04-03 16:39] LABS: CKMB/CK RATIO 4.2 (0-3.0)
--- NOTE | 2016-04-03 18:00 | Surgery Progress Note ---
Surgery Progress Note Date of Service Apr 03, 2016. Subjective Post OP Day: 4 + bowel movement, + flatus, + nausea (mild on occasion), No vomiting Objective Vital Signs: Date Time Temp Pulse Resp B/P Pulse Ox O2 Delivery O2 Flow Rate FiO2 04/03/16 16:00 98 Nasal Cannula 1.0 04/03/16 15:13 37.3 60 21 177/75 98 Nasal Cannula 3.0 04/03/16 12:00 99 Nasal Cannula 1.0 04/03/16 11:57 36.7 60 24 163/67 100 Nasal Cannula 2.0 04/03/16 11:03 63 20 96 Nasal Cannula 2.0 04/03/16 09:17 60 158/65 04/03/16 08:12 59 20 96 Nasal Cannula 2.0 04/03/16 08:00 98 Nasal Cannula 1.0 04/03/16 07:51 37.0 60 22 175/69 97 Nasal Cannula 2.0 04/03/16 04:05 36.8 59 20 130/76 95 Nasal Cannula 1.0 04/03/16 04:00 95 Nasal Cannula 1.0 04/03/16 00:00 95 Nasal Cannula 1.0 04/03/16 00:00 37.4 60 18 135/72 95 Nasal Cannula 1.0 04/02/16 20:00 96 Nasal Cannula 1.0 04/02/16 19:08 36.9 91 18 157/66 96 Nasal Cannula 1.0 Abdomen: non distended, soft Incision(s): clean, dry, intact, erythema (some mild around upper incision) Laboratory Results: Results Past 24 Hours Test 04/02/16 19:47 04/03/16 05:15 04/03/16 06:55 04/03/16 09:25 Range/Units Bedside Glucose 138 86 70-90 mg/dl White Blood Count 10.07 4.8-10.8 K/uL Red Blood Count 3.78 4.2-5.4 M/uL Hemoglobin 11.3 12.0-16.0 g/dL Hematocrit 34.4 37-47 % Mean Corpuscular Volume 91.0 80-100 fL Mean Corpuscular Hemoglobin 29.9 25-34 pg Mean Corpuscular Hemoglobin Concent 32.8 32-36 g/dl Platelet Count 209 130-400 K/uL Mean Platelet Volume 8.8 7.4-10.4 fL Neutrophils (%) (Auto) 75.7 % Lymphocytes (%) (Auto) 13.6 % Monocytes (%) (Auto) 7.1 % Eosinophils (%) (Auto) 3.2 % Basophils (%) (Auto) 0.1 % Neutrophils # (Auto) 7.62 1.4-6.5 K/uL Lymphocytes # (Auto) 1.37 1.2-3.4 K/uL Monocytes # (Auto) 0.72 0.11-0.59 K/uL Eosinophils # (Auto) 0.32 0-0.5 K/uL Basophils # (Auto) 0.01 0-0.2 K/uL RDW Standard Deviation 47.1 36.4-46.3 fL RDW Coefficient of Variation 14.1 11.5-14.5 % Immature Granulocyte % (Auto) 0.3 % Immature Granulocyte # (Auto) 0.03 0.00-0.02 K/uL Sodium Level 136 136-145 mmol/L Potassium Level 4.5 3.5-5.1 mmol/L Chloride Level 101 98-107 mmol/L Carbon Dioxide Level 28 21-32 mmol/L Anion Gap 7.0 3-11 mmol/L Blood Urea Nitrogen 23 7-18 mg/dl Creatinine 1.10 0.60-1.20 mg/dl Est Creatinine Clear Calc Drug Dose 35.3 ml/min Estimated GFR () 52.6 Estimated GFR (Non- 45.4 BUN/Creatinine Ratio 20.8 10-20 Random Glucose 78 70-99 mg/dl Calcium Level 8.3 8.5-10.1 mg/dl Magnesium Level 2.4 1.8-2.4 mg/dl Total Creatine Kinase 48 26-192 U/L Creatine Kinase MB 2.2 0.5-3.6 ng/ml Creatine Kinase MB Ratio 4.6 0-3.0 Troponin I 0.061 0-0.045 ng/ml Test 04/03/16 11:08 04/03/16 15:18 04/03/16 16:32 Range/Units Bedside Glucose 127 172 70-90 mg/dl Total Creatine Kinase 53 26-192 U/L Creatine Kinase MB 2.2 0.5-3.6 ng/ml Creatine Kinase MB Ratio 4.2 0-3.0 Troponin I 0.054 0-0.045 ng/ml Assessment & Plan S/P reduction and repair of right incarcerated inguinal hernia with partial small bowel resection Doing well Monitor incision Tolerating diet Bowel function has returned WBC normal Increase diet Continue OT/PT
--- NOTE | 2016-04-03 18:10 | Family Medicine Progress Note ---
Progress Note Date of Service Apr 03, 2016. Subjective Pt evaluation today including: conversation w/ patient, physical exam, chart review, lab review Pain: None Voiding: no voiding problems, no incontinence Notes having chest congestion with mild dry cough with nasal discharge Slept well overnight Abdomen improving, able to tolerate diet Nursing notes runs of PVCs on monitor 0058: 8 consecutive 0637: 6 consecutive Additional Comments: Review of systems otherwise negative Medications Current Inpatient Medications Medications (Trade) Dose Ordered Sig/Leslee Route Start Time Stop Time Status Last Admin Dose Admin Albuterol Sulfate (Ventolin 0.5% 2.5MG/0.5ML Neb) 2.5 mg Q4H PRN INH 03/30/16 05:45 04/29/16 05:44 Future Hold 04/03/16 08:11 2.5 MG Fluticasone Propionate (Flonase Nasal [place]) 2 sprays DAILY ANTOINE 03/30/16 09:00 04/29/16 08:59 04/03/16 07:43 2 SPRAYS Miscellaneous Information (Order Awaiting Action) 1 ea QS N/A 03/30/16 08:00 04/29/16 07:59 Ondansetron HCl (Zofran Inj) 4 mg Q6H PRN IV 03/30/16 05:45 04/29/16 05:44 Nitroglycerin (Nitrostat Tab) 0.4 mg UD PRN SL 03/30/16 05:45 04/29/16 05:44 Morphine Sulfate (MoRPHine SULFATE INJ) 4 mg Q1H PRN IV 03/30/16 11:00 04/13/16 10:59 04/02/16 01:05 4 MG Al Hydroxide/Mg Hydroxide (Maalox Susp) 30 ml QID NG 03/30/16 13:00 04/29/16 12:59 Future Hold 04/01/16 21:30 30 ML Glucose (Glucose 40% Gel) 15-30 GRAMS 15 GRAMS... UD PRN PO 03/30/16 14:00 04/29/16 13:59 Glucose (Glucose Chew Tab) 4-8 Tablets 4 Tabl... UD PRN PO 03/30/16 14:00 04/29/16 13:59 Dextrose (Dextrose 50% 50ML Syringe) 25-50ML OF 50% DW IV FOR... UD PRN IV 03/30/16 14:00 04/29/16 13:59 Glucagon 1 mg 1 mg UD PRN SQ 03/30/16 14:00 04/29/16 13:59 Diltiazem HCl/ Dextrose (Cardizem Inj/D5 100ml) 125 ml @ 0 mls/hr Q0M PRN IV 04/01/16 05:00 05/01/16 04:59 Future Hold 04/01/16 06:18 15 MLS/HR Aspirin (Ecotrin Tab) 81 mg DAILY PO 04/02/16 09:00 05/02/16 08:59 04/03/16 07:46 81 MG Docusate Sodium (coLACE CAP) 100 mg BID PRN PO 04/01/16 10:15 05/01/16 10:14 Escitalopram Oxalate (Lexapro Tab) 5 mg DAILY PO 04/02/16 09:00 05/02/16 08:59 04/03/16 07:46 5 MG Fluconazole (Diflucan Tab) 100 mg BID PO 04/01/16 10:30 04/10/16 10:29 04/03/16 07:45 100 MG Insulin Glargine (Lantus Solostar Pen) 30 unit QAM SC 04/02/16 09:00 05/02/16 08:59 04/03/16 07:57 30 UNIT Levothyroxine Sodium (Synthroid Tab) 50 mcg DAILYBB PO 04/02/16 06:00 05/02/16 05:59 04/03/16 05:11 50 MCG Loratadine (Claritin Tab) 10 mg QAM PO 04/02/16 09:00 05/02/16 08:59 04/03/16 07:45 10 MG Metoprolol Tartrate (Lopressor Tab) 100 mg BID PO 04/01/16 21:00 05/01/16 20:59 04/03/16 07:47 100 MG Diltiazem HCl (Cardizem Cd Cap) 240 mg QAM PO 04/02/16 09:00 05/02/16 08:59 04/03/16 07:45 240 MG Fluconazole (Consult) 1 ea UD PRN N/A 04/01/16 10:30 05/01/16 10:29 Insulin Aspart (novoLOG ASPART) SLIDING SCALE If C... ACHS SC 04/01/16 16:15 05/01/16 16:14 04/03/16 17:00 5 UNITS Albuterol/ Ipratropium (Duoneb) 3 ml BIDR INH 04/03/16 12:00 05/03/16 11:59 04/03/16 11:03 3 ML Guaifenesin (Mucinex Contr Rel Tab) 600 mg Q12 PO 04/03/16 21:00 05/03/16 20:59 Objective Vital Signs Current Inpatient Medications Medications (Trade) Dose Ordered Sig/Leslee Route Start Time Stop Time Status Last Admin Dose Admin Albuterol Sulfate (Ventolin 0.5% 2.5MG/0.5ML Neb) 2.5 mg Q4H PRN INH 03/30/16 05:45 04/29/16 05:44 Future Hold 04/03/16 08:11 2.5 MG Fluticasone Propionate (Flonase Nasal [place]) 2 sprays DAILY ANTOINE 03/30/16 09:00 04/29/16 08:59 04/03/16 07:43 2 SPRAYS Miscellaneous Information (Order Awaiting Action) 1 ea QS N/A 03/30/16 08:00 04/29/16 07:59 Ondansetron HCl (Zofran Inj) 4 mg Q6H PRN IV 03/30/16 05:45 04/29/16 05:44 Nitroglycerin (Nitrostat Tab) 0.4 mg UD PRN SL 03/30/16 05:45 04/29/16 05:44 Morphine Sulfate (MoRPHine SULFATE INJ) 4 mg Q1H PRN IV 03/30/16 11:00 04/13/16 10:59 04/02/16 01:05 4 MG Al Hydroxide/Mg Hydroxide (Maalox Susp) 30 ml QID NG 03/30/16 13:00 04/29/16 12:59 Future Hold 04/01/16 21:30 30 ML Glucose (Glucose 40% Gel) 15-30 GRAMS 15 GRAMS... UD PRN PO 03/30/16 14:00 04/29/16 13:59 Glucose (Glucose Chew Tab) 4-8 Tablets 4 Tabl... UD PRN PO 03/30/16 14:00 04/29/16 13:59 Dextrose (Dextrose 50% 50ML Syringe) 25-50ML OF 50% DW IV FOR... UD PRN IV 03/30/16 14:00 04/29/16 13:59 Glucagon 1 mg 1 mg UD PRN SQ 03/30/16 14:00 04/29/16 13:59 Diltiazem HCl/ Dextrose (Cardizem Inj/D5 100ml) 125 ml @ 0 mls/hr Q0M PRN IV 04/01/16 05:00 05/01/16 04:59 Future Hold 04/01/16 06:18 15 MLS/HR Aspirin (Ecotrin Tab) 81 mg DAILY PO 04/02/16 09:00 05/02/16 08:59 04/03/16 07:46 81 MG Docusate Sodium (coLACE CAP) 100 mg BID PRN PO 04/01/16 10:15 05/01/16 10:14 Escitalopram Oxalate (Lexapro Tab) 5 mg DAILY PO 04/02/16 09:00 05/02/16 08:59 04/03/16 07:46 5 MG Fluconazole (Diflucan Tab) 100 mg BID PO 04/01/16 10:30 04/10/16 10:29 04/03/16 07:45 100 MG Insulin Glargine (Lantus Solostar Pen) 30 unit QAM SC 04/02/16 09:00 05/02/16 08:59 04/03/16 07:57 30 UNIT Levothyroxine Sodium (Synthroid Tab) 50 mcg DAILYBB PO 04/02/16 06:00 05/02/16 05:59 04/03/16 05:11 50 MCG Loratadine (Claritin Tab) 10 mg QAM PO 04/02/16 09:00 05/02/16 08:59 04/03/16 07:45 10 MG Metoprolol Tartrate (Lopressor Tab) 100 mg BID PO 04/01/16 21:00 05/01/16 20:59 04/03/16 07:47 100 MG Diltiazem HCl (Cardizem Cd Cap) 240 mg QAM PO 04/02/16 09:00 05/02/16 08:59 04/03/16 07:45 240 MG Fluconazole (Consult) 1 ea UD PRN N/A 04/01/16 10:30 05/01/16 10:29 Insulin Aspart (novoLOG ASPART) SLIDING SCALE If C... ACHS SC 04/01/16 16:15 05/01/16 16:14 04/03/16 17:00 5 UNITS Albuterol/ Ipratropium (Duoneb) 3 ml BIDR INH 04/03/16 12:00 05/03/16 11:59 04/03/16 11:03 3 ML Guaifenesin (Mucinex Contr Rel Tab) 600 mg Q12 PO 04/03/16 21:00 05/03/16 20:59 Physical Exam General Appearance: WD/WN, no apparent distress, + pertinent finding (nasal cannula) Eyes: normal inspection, PERRL, EOMI ENT: hearing grossly normal, pharynx normal Neck: supple, no adenopathy, no JVD Respiratory/Chest: lungs clear, no respiratory distress Cardiovascular: no gallop, no murmur, + irregularly irregular, + pertinent finding (regular rate) Abdomen: normal bowel sounds, non tender, soft, + pertinent finding (scars healing well; no discharge or bleeding) Extremities: non-tender, no pedal edema Neurologic/Psychiatric: alert, normal mood/affect, oriented x 3 Skin: normal color, warm/dry, no rash Lymphatic: no adenopathy Laboratory Results Last 24 Hours Test 04/02/16 19:47 04/03/16 05:15 04/03/16 06:55 04/03/16 09:25 Bedside Glucose 138 mg/dl 86 mg/dl White Blood Count 10.07 K/uL Red Blood Count 3.78 M/uL Hemoglobin 11.3 g/dL Hematocrit 34.4 % Mean Corpuscular Volume 91.0 fL Mean Corpuscular Hemoglobin 29.9 pg Mean Corpuscular Hemoglobin Concent 32.8 g/dl Platelet Count 209 K/uL Mean Platelet Volume 8.8 fL Neutrophils (%) (Auto) 75.7 % Lymphocytes (%) (Auto) 13.6 % Monocytes (%) (Auto) 7.1 % Eosinophils (%) (Auto) 3.2 % Basophils (%) (Auto) 0.1 % Neutrophils # (Auto) 7.62 K/uL Lymphocytes # (Auto) 1.37 K/uL Monocytes # (Auto) 0.72 K/uL Eosinophils # (Auto) 0.32 K/uL Basophils # (Auto) 0.01 K/uL RDW Standard Deviation 47.1 fL RDW Coefficient of Variation 14.1 % Immature Granulocyte % (Auto) 0.3 % Immature Granulocyte # (Auto) 0.03 K/uL Sodium Level 136 mmol/L Potassium Level 4.5 mmol/L Chloride Level 101 mmol/L Carbon Dioxide Level 28 mmol/L Anion Gap 7.0 mmol/L Blood Urea Nitrogen 23 mg/dl Creatinine 1.10 mg/dl Est Creatinine Clear Calc Drug Dose 35.3 ml/min Estimated GFR () 52.6 Estimated GFR (Non- 45.4 BUN/Creatinine Ratio 20.8 Random Glucose 78 mg/dl Calcium Level 8.3 mg/dl Magnesium Level 2.4 mg/dl Total Creatine Kinase 48 U/L Creatine Kinase MB 2.2 ng/ml Creatine Kinase MB Ratio 4.6 Troponin I 0.061 ng/ml Test 04/03/16 11:08 04/03/16 15:18 04/03/16 16:32 Bedside Glucose 127 mg/dl 172 mg/dl Total Creatine Kinase 53 U/L Creatine Kinase MB 2.2 ng/ml Creatine Kinase MB Ratio 4.2 Troponin I 0.054 ng/ml Assessment and Plan 85 year old female who is now day 3 status post partial small bowel resection for obstruction secondary to incarceration in right hernia. "Acute" small bowel ischemia in setting of incarcerated inguinal hernia treated with surgical reduction and resection of ischemic section. - Doing well post-operatively; wound intact; tolerating diet - Doing well at this time, pain is minimal - Continue to advance diet as tolerated PVCs on monitor - 2 episodes per telemetry - Mag checked; normal at 2.1 - Trending troponins at this time. First set was 0.061; repeat was 0.054 - EKG obtained; no acute changes noted - Will continue to trend cardiac enzymes q6 hourly Acute Blood Loss Anemia secondary to abdominal surgery - Hb 11.2; stable between 10-12 since surgery - Hb on arrive was 15 - Would require CBC to monitor as outpatient Chronic systolic CHF - No acute decompensation evidence at this time. - Baseline EF 45% - Stable at this time; no evidence of overload, hold Lasix Rate controlled Atrial Fibrillation with pacer - No palpitations; rate 50-60 on monitor overnight - Hold anticoagulation at this time due to falls risk - EMR notes history of epistaxis in Dec 2014 - Continue PO Metoprolol, Diltiazem New Hypoxic Respiratory Failure - Patient slowly weaning down to 1L by nasal cannula - Goal to have on room air URI with mild Cough - Will start Mucinex - Will start Flonase CKD stage 3 - Cr 1.1; at baseline - Daily BMP Type 2 Diabetes Mellitus - BSGs today well controlled between 102 and 172 - Continue Insulin Sliding scale with AC/HS checks Needed additional 12 units of coverage over 24 hours - Continue Lantus 30 DVT prophylaxis - SCD knee - Will encourage mobility - Start low-dose heparin tonight for prophylaxis Depression - Resume Lexapro PO Hypothyroid - Continue Levothyroxine Code Status - Level I Code Disposition - OT/PT - Continue Telemetry monitoring Continued [facility] stay due to: ambulation difficulties Discharge planning: uncertain Reviewed: Pt Seen/Exam by Me History feeling tired today. stomach felt upset but later felt better after the bowel movement Constitutional: denies: fever Respiratory: negative: short of breath Cardiovascular: denies chest pain General Appearance: no apparent distress Respiratory: lungs clear, no respiratory distress Cardiovascular: regular rate, rhythm Gastrointestinal: normal bowel sounds, non tender, soft Neurologic/Psychiatric: alert, oriented x 3 Skin Characteristics: warm/dry Assessment/Plan I have reviewed the medical record and performed a history and physical examination of this patient today. I have discussed the case with Dr. Mendez. The above note reflects my findings, conclusions, and recommendations. Bowel function returned. Tolerating diet. Wide complex T of 8 beats. Normal electrolytes. Troponin mild elevation - nonspecific. Monitor on Tele. Follow.
[2016-04-03] MEDS ORDERED: SODIUM CHLORIDE 0.65% NA SOLN 45 ML (OCEAN) PRN (18:30)
[2016-04-03] MEDS: GUAIFENESIN 600 MG TABCR PO SCH (21:11)
[2016-04-03] MEDS: HEPARIN SOD 5000 UNIT/0.5 ML CARP SQ SCH (21:16)
[2016-04-03] MEDS ORDERED: HydrALAZINE HCL 20 MG/ML VIAL IV. PRN (21:45)
[2016-04-03 22:47] LABS: CKMB/CK RATIO 4.2 (0-3.0)
[2016-04-04] VITALS (10 sets, daily range): BP systolic 149–162; BP diastolic 63–80; PULSE 59–91; TEMP 36.6–37.4; O2SAT 97–100
[2016-04-04] MEDS: LEVOTHYROXINE 50 MCG TAB PO SCH (06:10)
[2016-04-04 06:18] LABS: MEAN CELL VOLUME 90.2 fL (80-100); MEAN CORPUSCULAR HEMOGLOBIN 30.3 pg (25-34); MEAN CORPUSCULAR HGB CONC 33.6 g/dl (32-36); PLATELET COUNT 222 K/uL (130-400); RED BLOOD COUNT 3.99 M/uL (4.2-5.4)
[2016-04-04 06:52] LABS: BUN/CREATININE RATIO 15.4 (10-20); CALCIUM 8.4 mg/dl (8.5-10.1); CREATININE 1.1 mg/dl (0.60-1.20); POTASSIUM 4.8 mmol/L (3.5-5.1)
[2016-04-04 07:01] LABS: CKMB/CK RATIO 5.2 (0-3.0)
[2016-04-04] MEDS: ALBUT/IPRATROP 3MG/0.5MG NEB 3 ML VIAL INH SCH ×2 (07:09→20:21)
--- NOTE | 2016-04-04 07:45 | Surgery Progress Note ---
Surgery Progress Note Date of Service Apr 04, 2016. Subjective Post OP Day: 5 + bowel movement, + feeling well, + flatus, + pain controlled, No nausea, No vomiting Objective Vital Signs: Date Time Temp Pulse Resp B/P Pulse Ox O2 Delivery O2 Flow Rate FiO2 04/04/16 04:00 97 Nasal Cannula 3.0 04/04/16 03:35 37.4 78 20 151/70 97 Nasal Cannula 3.0 04/04/16 00:00 98 Nasal Cannula 3.0 04/03/16 23:18 37.3 72 18 137/71 98 Nasal Cannula 3.0 04/03/16 19:53 97 Nasal Cannula 3.0 04/03/16 19:53 36.9 97 20 148/68 97 Nasal Cannula 3.0 04/03/16 19:25 68 18 96 Nasal Cannula 2.0 04/03/16 16:00 98 Nasal Cannula 1.0 04/03/16 15:13 37.3 60 21 177/75 98 Nasal Cannula 3.0 04/03/16 12:00 99 Nasal Cannula 1.0 04/03/16 11:57 36.7 60 24 163/67 100 Nasal Cannula 2.0 04/03/16 11:03 63 20 96 Nasal Cannula 2.0 04/03/16 09:17 60 158/65 04/03/16 08:12 59 20 96 Nasal Cannula 2.0 04/03/16 08:00 98 Nasal Cannula 1.0 04/03/16 07:51 37.0 60 22 175/69 97 Nasal Cannula 2.0 Abdomen: normal bowel sounds, non tender, non distended Incision(s): clean, dry, intact, erythema (mild) Laboratory Results: Results Past 24 Hours Test 04/03/16 09:25 04/03/16 11:08 04/03/16 15:18 04/03/16 16:32 Range/Units Magnesium Level 2.4 1.8-2.4 mg/dl Total Creatine Kinase 48 53 26-192 U/L Creatine Kinase MB 2.2 2.2 0.5-3.6 ng/ml Creatine Kinase MB Ratio 4.6 4.2 0-3.0 Troponin I 0.061 0.054 0-0.045 ng/ml Bedside Glucose 127 172 70-90 mg/dl Test 04/03/16 20:22 04/03/16 22:00 04/04/16 05:30 04/04/16 06:29 Range/Units Bedside Glucose 174 193 70-90 mg/dl Total Creatine Kinase 43 33 26-192 U/L Creatine Kinase MB 1.8 1.7 0.5-3.6 ng/ml Creatine Kinase MB Ratio 4.2 5.2 0-3.0 Troponin I 0.059 0.046 0-0.045 ng/ml White Blood Count 10.10 4.8-10.8 K/uL Red Blood Count 3.99 4.2-5.4 M/uL Hemoglobin 12.1 12.0-16.0 g/dL Hematocrit 36.0 37-47 % Mean Corpuscular Volume 90.2 80-100 fL Mean Corpuscular Hemoglobin 30.3 25-34 pg Mean Corpuscular Hemoglobin Concent 33.6 32-36 g/dl RDW Standard Deviation 46.0 36.4-46.3 fL RDW Coefficient of Variation 13.9 11.5-14.5 % Platelet Count 222 130-400 K/uL Mean Platelet Volume 9.0 7.4-10.4 fL Sodium Level 135 136-145 mmol/L Potassium Level 4.8 3.5-5.1 mmol/L Chloride Level 99 98-107 mmol/L Carbon Dioxide Level 29 21-32 mmol/L Anion Gap 7.0 3-11 mmol/L Blood Urea Nitrogen 17 7-18 mg/dl Creatinine 1.10 0.60-1.20 mg/dl Est Creatinine Clear Calc Drug Dose 35.1 ml/min Estimated GFR () 52.6 Estimated GFR (Non- 45.4 BUN/Creatinine Ratio 15.4 10-20 Random Glucose 173 70-99 mg/dl Calcium Level 8.4 8.5-10.1 mg/dl Assessment & Plan S/P reduction and repair of right incarcerated inguinal hernia with partial small bowel resection for acute small bowel ischemia Doing well Monitor incision Tolerating diet Bowel function has returned WBC normal Increase diet Continue OT/PT
[2016-04-04] MEDS: ASPIRIN 81 MG ECTAB PO SCH (09:01)
[2016-04-04] MEDS: ESCITALOPRAM OXALATE 10 MG TAB PO SCH (09:01)
[2016-04-04] MEDS: LORATADINE 10 MG TAB PO SCH (09:01)
[2016-04-04] MEDS: FLUCONAZOLE 100 MG TAB PO SCH ×2 (09:02→20:46)
[2016-04-04] MEDS: METOPROLOL TARTRATE 100 MG TAB PO SCH ×2 (09:02→20:47)
[2016-04-04] MEDS: DILTIAZEM HCL 240 MG CAPCR PO SCH (09:02)
[2016-04-04] MEDS: FLUTICASONE PROPIONATE NA SPR 16 GM BTL NAE SCH (09:03)
[2016-04-04] MEDS: GUAIFENESIN 600 MG TABCR PO SCH ×2 (09:03→20:46)
[2016-04-04] MEDS: INSULIN GLARGINE SOLOSTAR 100 UNITS/ML 3 ML PEN SC SCH (09:10)
[2016-04-04] MEDS: INSULIN ASPART 100 UNITS/ML 3 ML PEN SC SCH ×4 (09:10→20:06)
[2016-04-04] MEDS: HEPARIN SOD 5000 UNIT/0.5 ML CARP SQ SCH ×2 (09:11→20:51)
[2016-04-04 13:24] LABS: CKMB/CK RATIO 5.5 (0-3.0)
--- NOTE | 2016-04-04 13:41 | ECHOCARDIOGRAM REPORT ---
*NOTICE TO RECEIVING LIBERTARIAN AGENCY This information is strictly Confidential and protected under [place] law. [place] law prohibits you from making any further disclosure of this information unless further disclosure is expressly permitted by the written consent of the person to whom it pertains or is authorized by law. A general authorization for the release of medical or other information is not sufficient for this purpose. Hospital accepts no responsibility if the information is made available to any other person, INCLUDING THE PATIENT. Interpretation Summary * Name: KYE BROWN Study Date: 04/04/2016 10:03 AM BP: 149/80 mmHg * Patient Location: C.2T\S\S231\S\1 HR: 66 * : 1930 (M/d/) Gender: Female Height: 63 in * Age: 85 yrs Ethnicity: [place] Weight: 160 lb * Ordering Physician: Serafin Mendez * Performed By: Patricia Ramírez RDCS * * Reason For Study: \S\s/p bowel resection; PVC runs ; mild increase troponins * BSA: 1.8 m2 * -- Conclusions -- * No regional wall motion abnormalities noted. * Left ventricular systolic function is mildly reduced. * There is mild global hypokinesis of the left ventricle. * Ejection Fraction = 40-45%. * There is moderate concentric left ventricular hypertrophy. * There is moderate mitral regurgitation. * There is mild tricuspid regurgitation. * Compared with 01/02/2016 study, mitral regurgitation is less severe. Procedure Details * A complete two-dimensional transthoracic echocardiogram was performed (2D, M-mode, Doppler and color flow Doppler). Left Ventricle * The left ventricle is borderline dilated. * There is moderate concentric left ventricular hypertrophy. * Ejection Fraction = 40-45%. * Left ventricular systolic function is mildly reduced. * No regional wall motion abnormalities noted. * There is mild global hypokinesis of the left ventricle. Right Ventricle * The right ventricle is grossly normal size. * The right ventricular systolic function is normal as assessed by tricuspid annular plane systolic excursion (TAPSE) (normal >1.5 cm). Atria * The left atrium is mildly dilated. * Right atrium not well visualized. * There is no evidence of atrial septal defect, but resolution does not allow assessment for a patent foramen ovale. Mitral Valve * Mitral valve sclerosis without significant stenosis. * Calcified mitral apparatus. * There is moderate mitral regurgitation. Tricuspid Valve * The tricuspid valve is not well visualized, but is grossly normal. * There is mild tricuspid regurgitation. Aortic Valve * The aortic valve is not well visualized. * The aortic valve opens well. * Aortic valve sclerosis moderate, without significant aortic valvular stenosis. * There is no significant aortic regurgitation. Pulmonic Valve * The pulmonary valve is not well seen, but the Doppler examination is normal without significant regurgitation or stenosis. Left Ventricular Diastolic Function * Grade I diastolic dysfunction, (abnormal relaxation pattern). MMode 2D Measurements and Calculations IVSd 0.94 cm LVIDd 4.5 cm LVIDs 3.5 cm LVPWd 0.85 cm IVS/LVPW 1.1 FS 23.4 % EDV(Teich) 93.8 ml ESV(Teich) 49.8 ml EF(Teich) 47.0 % EDV(cubed) 92.8 ml ESV(cubed) 41.7 ml EF(cubed) 55.1 % LV mass(C)d 133.4 grams LV mass(C)dI 75.8 grams/m\S\2 CO(Teich) 2.6 l/min CI(Teich) 1.5 l/min/m\S\2 SV(Teich) 44.0 ml SI(Teich) 25.0 ml/m\S\2 CO(cubed) 3.1 l/min CI(cubed) 1.7 l/min/m\S\2 SV(cubed) 51.1 ml SI(cubed) 29.1 ml/m\S\2 Ao root diam 2.2 cm Ao root area 3.8 cm\S\2 ACS 1.5 cm LA dimension 3.5 cm asc Aorta Diam 2.9 cm LA/Ao 1.6 LVAd ap4 25.4 cm\S\2 LVLd ap4 8.1 cm EDV(MOD-sp4) 66.8 ml LVAs ap4 16.5 cm\S\2 LVLs ap4 7.1 cm ESV(MOD-sp4) 32.2 ml EF(MOD-sp4) 51.8 % LVAd ap2 24.7 cm\S\2 LVLd ap2 7.9 cm EDV(MOD-sp2) 64.7 ml LVAs ap2 16.2 cm\S\2 LVLs ap2 7.0 cm ESV(MOD-sp2) 31.2 ml EF(MOD-sp2) 51.8 % CO(MOD-sp4) 2.1 l/min CI(MOD-sp4) 1.2 l/min/m\S\2 SV(MOD-sp4) 34.6 ml SI(MOD-sp4) 19.7 ml/m\S\2 CO(MOD-sp2) 2.0 l/min CI(MOD-sp2) 1.1 l/min/m\S\2 SV(MOD-sp2) 33.5 ml SI(MOD-sp2) 19.0 ml/m\S\2 Doppler Measurements and Calculations MV E max yumiko 61.3 cm/sec MV A max yumiko 88.1 cm/sec MV E/A 0.70 MV dec time 0.51 sec Ao V2 max 141.8 cm/sec Ao max PG 8.0 mmHg Ao max PG (full) 5.4 mmHg LV V1 max PG 2.7 mmHg LV V1 max 82.0 cm/sec PA V2 max 112.5 cm/sec PA max PG 5.1 mmHg PA acc slope 688.7 cm/sec\S\2 PA acc time 0.11 sec TR max yumiko 257.2 cm/sec PA pr(Accel) 31.5 mmHg
--- NOTE | 2016-04-04 17:42 | Family Medicine Progress Note ---
Progress Note Date of Service Apr 04, 2016. Subjective Pt evaluation today including: conversation w/ patient, physical exam, chart review, lab review Pain: None PO Intake: Good Voiding: no voiding problems Doing well this morning Slept well overnight Denies any chest pain, shortness of breath or palpitations Eating and voiding without difficulty. Noted to have multiple runs of PVCs overnight; patient completely asymptomatic Additional Comments: Review of systems otherwise negative. Medications Current Inpatient Medications Medications (Trade) Dose Ordered Sig/Leslee Route Start Time Stop Time Status Last Admin Dose Admin Albuterol Sulfate (Ventolin 0.5% 2.5MG/0.5ML Neb) 2.5 mg Q4H PRN INH 03/30/16 05:45 04/29/16 05:44 Future Hold 04/03/16 08:11 2.5 MG Fluticasone Propionate (Flonase Nasal [place]) 2 sprays DAILY ANTOINE 03/30/16 09:00 04/29/16 08:59 04/04/16 09:03 2 SPRAYS Miscellaneous Information (Order Awaiting Action) 1 ea QS N/A 03/30/16 08:00 04/29/16 07:59 Ondansetron HCl (Zofran Inj) 4 mg Q6H PRN IV 03/30/16 05:45 04/29/16 05:44 Nitroglycerin (Nitrostat Tab) 0.4 mg UD PRN SL 03/30/16 05:45 04/29/16 05:44 Morphine Sulfate (MoRPHine SULFATE INJ) 4 mg Q1H PRN IV 03/30/16 11:00 04/13/16 10:59 04/02/16 01:05 4 MG Al Hydroxide/Mg Hydroxide (Maalox Susp) 30 ml QID NG 03/30/16 13:00 04/29/16 12:59 Future Hold 04/01/16 21:30 30 ML Glucose (Glucose 40% Gel) 15-30 GRAMS 15 GRAMS... UD PRN PO 03/30/16 14:00 04/29/16 13:59 Glucose (Glucose Chew Tab) 4-8 Tablets 4 Tabl... UD PRN PO 03/30/16 14:00 04/29/16 13:59 Dextrose (Dextrose 50% 50ML Syringe) 25-50ML OF 50% DW IV FOR... UD PRN IV 03/30/16 14:00 04/29/16 13:59 Glucagon 1 mg 1 mg UD PRN SQ 03/30/16 14:00 04/29/16 13:59 Diltiazem HCl/ Dextrose (Cardizem Inj/D5 100ml) 125 ml @ 0 mls/hr Q0M PRN IV 04/01/16 05:00 05/01/16 04:59 Future Hold 04/01/16 06:18 15 MLS/HR Aspirin (Ecotrin Tab) 81 mg DAILY PO 04/02/16 09:00 05/02/16 08:59 04/04/16 09:01 81 MG Docusate Sodium (coLACE CAP) 100 mg BID PRN PO 04/01/16 10:15 05/01/16 10:14 Escitalopram Oxalate (Lexapro Tab) 5 mg DAILY PO 04/02/16 09:00 05/02/16 08:59 04/04/16 09:01 5 MG Fluconazole (Diflucan Tab) 100 mg BID PO 04/01/16 10:30 04/10/16 10:29 04/04/16 09:02 100 MG Insulin Glargine (Lantus Solostar Pen) 30 unit QAM SC 04/02/16 09:00 05/02/16 08:59 04/04/16 09:10 30 UNIT Levothyroxine Sodium (Synthroid Tab) 50 mcg DAILYBB PO 04/02/16 06:00 05/02/16 05:59 04/04/16 06:10 50 MCG Loratadine (Claritin Tab) 10 mg QAM PO 04/02/16 09:00 05/02/16 08:59 04/04/16 09:01 10 MG Metoprolol Tartrate (Lopressor Tab) 100 mg BID PO 04/01/16 21:00 05/01/16 20:59 04/04/16 09:02 100 MG Diltiazem HCl (Cardizem Cd Cap) 240 mg QAM PO 04/02/16 09:00 05/02/16 08:59 04/04/16 09:02 240 MG Fluconazole (Consult) 1 ea UD PRN N/A 04/01/16 10:30 05/01/16 10:29 Insulin Aspart (novoLOG ASPART) SLIDING SCALE If C... ACHS SC 04/01/16 16:15 05/01/16 16:14 04/04/16 09:10 6 UNITS Albuterol/ Ipratropium (Duoneb) 3 ml BIDR INH 04/03/16 12:00 05/03/16 11:59 04/04/16 07:09 3 ML Guaifenesin (Mucinex Contr Rel Tab) 600 mg Q12 PO 04/03/16 21:00 05/03/16 20:59 04/04/16 09:03 600 MG Heparin Sodium (Porcine) (Heparin Sq 5000 Unit/0.5ml) 5,000 unit Q12 SQ 04/03/16 21:00 05/03/16 20:59 04/04/16 09:11 5,000 UNIT Sodium Chloride ([place] Nasal [place]) 2 sprays Q3H PRN NA 04/03/16 18:30 05/03/16 18:29 04/03/16 23:57 2 SPRAYS Hydralazine HCl (HydrALAZINE INJ) 10 mg Q4H PRN IV. 04/03/16 21:45 05/03/16 21:44 Objective Vital Signs Date Time Temp Pulse Resp B/P Pulse Ox O2 Delivery O2 Flow Rate FiO2 04/04/16 16:00 Nasal Cannula 2.0 04/04/16 15:06 37.1 80 18 153/65 98 Nasal Cannula 2.0 04/04/16 12:00 Nasal Cannula 2.0 04/04/16 08:36 36.6 66 18 149/80 99 Nasal Cannula 2.0 Humidified Oxygen 04/04/16 08:00 Nasal Cannula 2.0 04/04/16 07:09 67 18 98 Nasal Cannula 2.0 04/04/16 04:00 97 Nasal Cannula 3.0 04/04/16 03:35 37.4 78 20 151/70 97 Nasal Cannula 3.0 04/04/16 00:00 98 Nasal Cannula 3.0 04/03/16 23:18 37.3 72 18 137/71 98 Nasal Cannula 3.0 04/03/16 19:53 97 Nasal Cannula 3.0 04/03/16 19:53 36.9 97 20 148/68 97 Nasal Cannula 3.0 04/03/16 19:25 68 18 96 Nasal Cannula 2.0 Physical Exam General Appearance: WD/WN, no apparent distress Eyes: normal inspection, EOMI ENT: hearing grossly normal, pharynx normal Neck: supple, no adenopathy, no JVD Respiratory/Chest: lungs clear, no respiratory distress Cardiovascular: regular rate, rhythm, no gallop, no murmur Abdomen: normal bowel sounds, non tender, soft, + tenderness (appropriately tender at incision site), + pertinent finding (scars) Extremities: non-tender, no pedal edema Neurologic/Psychiatric: alert, normal mood/affect, oriented x 3 Skin: normal color, warm/dry, no rash Lymphatic: no adenopathy Laboratory Results Last 24 Hours Test 04/03/16 20:22 04/03/16 22:00 04/04/16 05:30 04/04/16 06:29 Bedside Glucose 174 mg/dl 193 mg/dl Total Creatine Kinase 43 U/L 33 U/L Creatine Kinase MB 1.8 ng/ml 1.7 ng/ml Creatine Kinase MB Ratio 4.2 5.2 Troponin I 0.059 ng/ml 0.046 ng/ml White Blood Count 10.10 K/uL Red Blood Count 3.99 M/uL Hemoglobin 12.1 g/dL Hematocrit 36.0 % Mean Corpuscular Volume 90.2 fL Mean Corpuscular Hemoglobin 30.3 pg Mean Corpuscular Hemoglobin Concent 33.6 g/dl RDW Standard Deviation 46.0 fL RDW Coefficient of Variation 13.9 % Platelet Count 222 K/uL Mean Platelet Volume 9.0 fL Sodium Level 135 mmol/L Potassium Level 4.8 mmol/L Chloride Level 99 mmol/L Carbon Dioxide Level 29 mmol/L Anion Gap 7.0 mmol/L Blood Urea Nitrogen 17 mg/dl Creatinine 1.10 mg/dl Est Creatinine Clear Calc Drug Dose 35.1 ml/min Estimated GFR () 52.6 Estimated GFR (Non- 45.4 BUN/Creatinine Ratio 15.4 Random Glucose 173 mg/dl Calcium Level 8.4 mg/dl Test 04/04/16 09:35 04/04/16 11:55 04/04/16 12:33 Total Creatine Kinase 34 U/L 38 U/L Creatine Kinase MB 1.7 ng/ml 2.1 ng/ml Creatine Kinase MB Ratio 5.0 5.5 Troponin I 0.055 ng/ml 0.049 ng/ml Bedside Glucose 143 mg/dl Assessment and Plan 85 year old female recovering from partial small bowel obstruction. She is recovering well at this time from a bowel standpoint. "Acute" small bowel ischemia in setting of incarcerated inguinal hernia treated with surgical reduction and resection of ischemic section. - Doing well; wound intact; tolerating diet; pain minimal - Continue to advance diet as tolerated - Surgery following; will have to discuss when patient would be ready for discharge from a surgical standpoint PVCs on monitor - Possibly secondary to stress of surgery - EKG did not show acute changes suggestive of ischemia - Noted to have 1 5 minute long run of PVCs overnight; no events during the day today - Mag checked; normal at 2.1 - Troponins continue to remain elevated by stable; ranging from 0.04 - 0.06; will continue to trend q 6h - Will repeat echo; if no change compared to previous echo on 01/07 + asymptomatic will not pursue additional action at this time Acute Blood Loss Anemia secondary to abdominal surgery - Hb 12.1 today; remains stable; Hb on arrival was 15 - Will need follow-up CBC when discharged Chronic systolic CHF - No acute decompensation evidence at this time. - Baseline EF 45%; repeat echo today in light of mild troponin increase - Stable at this time; no evidence of overload, hold Lasix Rate controlled Atrial Fibrillation with pacer - No palpitations; rate 50-60 on monitor overnight - EMR notes history of epistaxis in Dec 2014 - Continue PO Metoprolol, Diltiazem - Patient currently on Heparin s.c for DVT prophylaxis New Hypoxic Respiratory Failure - Currently on 2L by nasal cannula URI with mild Cough - Continue Mucinex + Flonase CKD stage 3 - Cr remains 1.1 - Daily BMP Type 2 Diabetes Mellitus - BSGs today well controlled between 86-193 - Continue Insulin Sliding scale with AC/HS checks - Continue Lantus 30 qAM DVT prophylaxis - Continue Heparin 5000 s.c BID Depression - Continue Lexapro Hypothyroid - Continue Levothyroxine Code Status - Level I Code Disposition - OT/PT - Continue Telemetry monitoring due to continued PVC runs - PT notes reviewed; acute inpatient recommendations Continued [facility] stay due to: other (advancing diet) Discharge planning: uncertain Reviewed: Pt Seen/Exam by Me History feeling much better today Constitutional: denies: fever Respiratory: negative: short of breath Cardiovascular: denies chest pain General Appearance: no apparent distress Respiratory: lungs clear, no respiratory distress Cardiovascular: regular rate, rhythm Neurologic/Psychiatric: alert, oriented x 3 Skin Characteristics: warm/dry Assessment/Plan I have reviewed the medical record and performed a history and physical examination of this patient today. I have discussed the case with Dr. Mendez. The above note reflects my findings, conclusions, and recommendations.
[2016-04-04 18:50] LABS: CKMB/CK RATIO 5.7 (0-3.0)
[2016-04-05] VITALS (12 sets, daily range): BP systolic 123–154; BP diastolic 52–77; PULSE 57–68; TEMP 36.5–36.9; O2SAT 87–100
[2016-04-05 05:50] LABS: HEMATOCRIT 33.7 % (37-47); MEAN CELL VOLUME 89.9 fL (80-100); MEAN CORPUSCULAR HEMOGLOBIN 30.7 pg (25-34); MEAN CORPUSCULAR HGB CONC 34.1 g/dl (32-36); MEAN PLATELET VOLUME 8.6 fL (7.4-10.4); PLATELET COUNT 212 K/uL (130-400); RED BLOOD COUNT 3.75 M/uL (4.2-5.4); WHITE BLOOD COUNT 9.37 K/uL (4.8-10.8)
[2016-04-05] MEDS: LEVOTHYROXINE 50 MCG TAB PO SCH (06:13)
[2016-04-05 06:21] LABS: BUN/CREATININE RATIO 13.5 (10-20); CALCIUM 8.6 mg/dl (8.5-10.1); CREATININE 1.1 mg/dl (0.60-1.20); POTASSIUM 4.2 mmol/L (3.5-5.1)
[2016-04-05 06:26] LABS: CKMB/CK RATIO 5.8 (0-3.0)
[2016-04-05] MEDS: ALBUT/IPRATROP 3MG/0.5MG NEB 3 ML VIAL INH SCH ×2 (07:10→20:12)
[2016-04-05] MEDS: DILTIAZEM HCL 240 MG CAPCR PO SCH (07:49)
[2016-04-05] MEDS: FLUCONAZOLE 100 MG TAB PO SCH ×3 (07:50→21:48)
[2016-04-05] MEDS: ESCITALOPRAM OXALATE 10 MG TAB PO SCH (07:50)
[2016-04-05] MEDS: HEPARIN SOD 5000 UNIT/0.5 ML CARP SQ SCH ×2 (07:50→21:47)
[2016-04-05] MEDS: ASPIRIN 81 MG ECTAB PO SCH (07:50)
[2016-04-05] MEDS: METOPROLOL TARTRATE 100 MG TAB PO SCH ×2 (07:50→21:00)
[2016-04-05] MEDS: FLUTICASONE PROPIONATE NA SPR 16 GM BTL NAE SCH (07:51)
[2016-04-05] MEDS: GUAIFENESIN 600 MG TABCR PO SCH ×2 (07:51→21:28)
[2016-04-05] MEDS: INSULIN ASPART 100 UNITS/ML 3 ML PEN SC SCH ×4 (07:54→21:00)
[2016-04-05] MEDS: INSULIN GLARGINE SOLOSTAR 100 UNITS/ML 3 ML PEN SC SCH (07:57)
[2016-04-05] MEDS: LORATADINE 10 MG TAB PO SCH (09:10)
[2016-04-05] MEDS ORDERED: NURSING VERBAL MED ORDER ONE ×2 (10:45→14:30)
--- NOTE | 2016-04-05 13:07 | Surgery Progress Note ---
Surgery Progress Note Date of Service Apr 05, 2016. Subjective Post OP Day: 6 + bowel movement, + diet (tolerating regular diet), + flatus, No nausea, No vomiting Objective Vital Signs: Date Time Temp Pulse Resp B/P Pulse Ox O2 Delivery O2 Flow Rate FiO2 04/05/16 10:45 96 Room Air 04/05/16 10:44 36.7 60 17 131/77 96 Room Air 04/05/16 10:35 36.9 57 18 87 04/05/16 08:05 36.9 57 18 123/62 87 Room Air 04/05/16 08:00 Room Air 04/05/16 07:10 68 18 97 Nasal Cannula 2.0 04/05/16 04:00 98 Nasal Cannula 2.0 04/05/16 03:49 36.5 60 18 148/77 98 Nasal Cannula 2.0 04/05/16 00:00 100 Nasal Cannula 2.0 04/04/16 22:54 37.0 59 16 149/63 100 Nasal Cannula 2.0 04/04/16 20:00 98 Nasal Cannula 2.0 04/04/16 20:00 98 Nasal Cannula 2.0 04/04/16 19:30 68 18 97 Nasal Cannula 2.0 04/04/16 18:59 37.4 91 18 162/77 98 Nasal Cannula 3.0 04/04/16 16:00 Nasal Cannula 2.0 04/04/16 15:06 37.1 80 18 153/65 98 Nasal Cannula 2.0 Abdomen: normal bowel sounds, non distended, soft Incision(s): clean, intact, drainage (brown from upper incision), erythema ( upper incision) Laboratory Results: Results Past 24 Hours Test 04/04/16 18:05 04/04/16 19:52 04/05/16 05:23 04/05/16 06:31 Range/Units Total Creatine Kinase 37 31 26-192 U/L Creatine Kinase MB 2.1 1.8 0.5-3.6 ng/ml Creatine Kinase MB Ratio 5.7 5.8 0-3.0 Troponin I 0.053 0.036 0-0.045 ng/ml Bedside Glucose 107 107 70-90 mg/dl White Blood Count 9.37 4.8-10.8 K/uL Red Blood Count 3.75 4.2-5.4 M/uL Hemoglobin 11.5 12.0-16.0 g/dL Hematocrit 33.7 37-47 % Mean Corpuscular Volume 89.9 80-100 fL Mean Corpuscular Hemoglobin 30.7 25-34 pg Mean Corpuscular Hemoglobin Concent 34.1 32-36 g/dl RDW Standard Deviation 46.4 36.4-46.3 fL RDW Coefficient of Variation 14.0 11.5-14.5 % Platelet Count 212 130-400 K/uL Mean Platelet Volume 8.6 7.4-10.4 fL Sodium Level 137 136-145 mmol/L Potassium Level 4.2 3.5-5.1 mmol/L Chloride Level 102 98-107 mmol/L Carbon Dioxide Level 27 21-32 mmol/L Anion Gap 8.0 3-11 mmol/L Blood Urea Nitrogen 15 7-18 mg/dl Creatinine 1.10 0.60-1.20 mg/dl Est Creatinine Clear Calc Drug Dose 34.6 ml/min Estimated GFR () 52.6 Estimated GFR (Non- 45.4 BUN/Creatinine Ratio 13.5 10-20 Random Glucose 96 70-99 mg/dl Calcium Level 8.6 8.5-10.1 mg/dl Magnesium Level 2.0 1.8-2.4 mg/dl Test 04/05/16 12:23 Range/Units Bedside Glucose 123 70-90 mg/dl Assessment & Plan S/P reduction and repair of right incarcerated inguinal hernia with partial small bowel resection for acute small bowel ischemia Doing well Opened incision and irrigated wound Continue local care Tolerating diet Bowel function has returned WBC normal Continue OT/PT Discharge planning underway
[2016-04-05] MEDS ORDERED: DOXYCYCLINE HYCLATE 100 MG CAP PO ONE (14:21)
--- NOTE | 2016-04-05 17:08 | Family Medicine Progress Note ---
Progress Note Date of Service Apr 05, 2016. Subjective Pt evaluation today including: conversation w/ patient, physical exam, chart review, lab review Pain: Mild facial pain PO Intake: Good Voiding: no voiding problems, no incontinence [place] well this morning, but this afternoon is having facial congestion and feels congested Feels discharge posteriorly and it is green Denies chest pain, palpitations or orthopnea Abdomen slightly sore today Reviewed with tele factory focus technician; no events on monitor Nursing notes increased clear discharge from wound; have notified surgery Additional Comments: Review of systems otherwise negative. Medications Current Inpatient Medications Medications (Trade) Dose Ordered Sig/Leslee Route Start Time Stop Time Status Last Admin Dose Admin Albuterol Sulfate (Ventolin 0.5% 2.5MG/0.5ML Neb) 2.5 mg Q4H PRN INH 03/30/16 05:45 04/29/16 05:44 Future Hold 04/03/16 08:11 2.5 MG Fluticasone Propionate (Flonase Nasal [place]) 2 sprays DAILY ANTOINE 03/30/16 09:00 04/29/16 08:59 04/05/16 07:51 2 SPRAYS Miscellaneous Information (Order Awaiting Action) 1 ea QS N/A 03/30/16 08:00 04/29/16 07:59 Ondansetron HCl (Zofran Inj) 4 mg Q6H PRN IV 03/30/16 05:45 04/29/16 05:44 Nitroglycerin (Nitrostat Tab) 0.4 mg UD PRN SL 03/30/16 05:45 04/29/16 05:44 Morphine Sulfate (MoRPHine SULFATE INJ) 4 mg Q1H PRN IV 03/30/16 11:00 04/13/16 10:59 04/02/16 01:05 4 MG Al Hydroxide/Mg Hydroxide (Maalox Susp) 30 ml QID NG 03/30/16 13:00 04/29/16 12:59 Future Hold 04/01/16 21:30 30 ML Glucose (Glucose 40% Gel) 15-30 GRAMS 15 GRAMS... UD PRN PO 03/30/16 14:00 04/29/16 13:59 Glucose (Glucose Chew Tab) 4-8 Tablets 4 Tabl... UD PRN PO 03/30/16 14:00 04/29/16 13:59 Dextrose (Dextrose 50% 50ML Syringe) 25-50ML OF 50% DW IV FOR... UD PRN IV 03/30/16 14:00 04/29/16 13:59 Glucagon 1 mg 1 mg UD PRN SQ 03/30/16 14:00 04/29/16 13:59 Diltiazem HCl/ Dextrose (Cardizem Inj/D5 100ml) 125 ml @ 0 mls/hr Q0M PRN IV 04/01/16 05:00 05/01/16 04:59 Future Hold 04/01/16 06:18 15 MLS/HR Aspirin (Ecotrin Tab) 81 mg DAILY PO 04/02/16 09:00 05/02/16 08:59 04/05/16 07:50 81 MG Docusate Sodium (coLACE CAP) 100 mg BID PRN PO 04/01/16 10:15 05/01/16 10:14 Escitalopram Oxalate (Lexapro Tab) 5 mg DAILY PO 04/02/16 09:00 05/02/16 08:59 04/05/16 07:50 5 MG Fluconazole (Diflucan Tab) 100 mg BID PO 04/01/16 10:30 04/10/16 10:29 04/05/16 07:50 100 MG Insulin Glargine (Lantus Solostar Pen) 30 unit QAM SC 04/02/16 09:00 05/02/16 08:59 04/05/16 07:57 30 UNIT Levothyroxine Sodium (Synthroid Tab) 50 mcg DAILYBB PO 04/02/16 06:00 05/02/16 05:59 04/05/16 06:13 50 MCG Loratadine (Claritin Tab) 10 mg QAM PO 04/02/16 09:00 05/02/16 08:59 04/05/16 09:10 10 MG Metoprolol Tartrate (Lopressor Tab) 100 mg BID PO 04/01/16 21:00 05/01/16 20:59 04/05/16 07:50 100 MG Diltiazem HCl (Cardizem Cd Cap) 240 mg QAM PO 04/02/16 09:00 05/02/16 08:59 04/05/16 07:49 240 MG Fluconazole (Consult) 1 ea UD PRN N/A 04/01/16 10:30 05/01/16 10:29 Insulin Aspart (novoLOG ASPART) SLIDING SCALE If C... ACHS SC 04/01/16 16:15 05/01/16 16:14 04/04/16 09:10 6 UNITS Guaifenesin (Mucinex Contr Rel Tab) 600 mg Q12 PO 04/03/16 21:00 05/03/16 20:59 04/05/16 07:51 600 MG Heparin Sodium (Porcine) (Heparin Sq 5000 Unit/0.5ml) 5,000 unit Q12 SQ 04/03/16 21:00 05/03/16 20:59 04/05/16 07:50 5,000 UNIT Sodium Chloride ([place] Nasal [place]) 2 sprays Q3H PRN NA 04/03/16 18:30 05/03/16 18:29 04/03/16 23:57 2 SPRAYS Hydralazine HCl (HydrALAZINE INJ) 10 mg Q4H PRN IV. 04/03/16 21:45 05/03/16 21:44 Albuterol/ Ipratropium (Duoneb) 3 ml TIDR INH 04/05/16 15:00 05/03/16 11:59 Doxycycline Hyclate (Vibramycin Cap) 100 mg BID PO 04/05/16 21:00 04/15/16 20:59 Objective Vital Signs Date Time Temp Pulse Resp B/P Pulse Ox O2 Delivery O2 Flow Rate FiO2 04/05/16 16:00 Room Air 04/05/16 14:56 36.7 60 18 154/66 95 Room Air 04/05/16 10:45 96 Room Air 04/05/16 10:44 36.7 60 17 131/77 96 Room Air 04/05/16 10:35 36.9 57 18 87 04/05/16 08:05 36.9 57 18 123/62 87 Room Air 04/05/16 08:00 Room Air 04/05/16 07:10 68 18 97 Nasal Cannula 2.0 04/05/16 04:00 98 Nasal Cannula 2.0 04/05/16 03:49 36.5 60 18 148/77 98 Nasal Cannula 2.0 04/05/16 00:00 100 Nasal Cannula 2.0 04/04/16 22:54 37.0 59 16 149/63 100 Nasal Cannula 2.0 04/04/16 20:00 98 Nasal Cannula 2.0 04/04/16 20:00 98 Nasal Cannula 2.0 04/04/16 19:30 68 18 97 Nasal Cannula 2.0 04/04/16 18:59 37.4 91 18 162/77 98 Nasal Cannula 3.0 Physical Exam General Appearance: WD/WN, no apparent distress, + mild distress Eyes: normal inspection, EOMI ENT: hearing grossly normal, pharynx normal, + pertinent finding (mild facial tenderness to maxillary and frontal palpation) Neck: supple, no adenopathy, no JVD Respiratory/Chest: lungs clear, no respiratory distress Cardiovascular: regular rate, rhythm, no gallop, no murmur Abdomen: normal bowel sounds, non tender, soft, + tenderness (appropriately tender), + pertinent finding (incisions looks mildly erythematous; no discharge noted) Extremities: non-tender, no pedal edema Neurologic/Psychiatric: alert, normal mood/affect, oriented x 3 Skin: normal color, warm/dry, no rash Lymphatic: no adenopathy Laboratory Results Last 24 Hours Test 04/04/16 18:05 04/04/16 19:52 04/05/16 05:23 04/05/16 06:31 Total Creatine Kinase 37 U/L 31 U/L Creatine Kinase MB 2.1 ng/ml 1.8 ng/ml Creatine Kinase MB Ratio 5.7 5.8 Troponin I 0.053 ng/ml 0.036 ng/ml Bedside Glucose 107 mg/dl 107 mg/dl White Blood Count 9.37 K/uL Red Blood Count 3.75 M/uL Hemoglobin 11.5 g/dL Hematocrit 33.7 % Mean Corpuscular Volume 89.9 fL Mean Corpuscular Hemoglobin 30.7 pg Mean Corpuscular Hemoglobin Concent 34.1 g/dl RDW Standard Deviation 46.4 fL RDW Coefficient of Variation 14.0 % Platelet Count 212 K/uL Mean Platelet Volume 8.6 fL Sodium Level 137 mmol/L Potassium Level 4.2 mmol/L Chloride Level 102 mmol/L Carbon Dioxide Level 27 mmol/L Anion Gap 8.0 mmol/L Blood Urea Nitrogen 15 mg/dl Creatinine 1.10 mg/dl Est Creatinine Clear Calc Drug Dose 34.6 ml/min Estimated GFR () 52.6 Estimated GFR (Non- 45.4 BUN/Creatinine Ratio 13.5 Random Glucose 96 mg/dl Calcium Level 8.6 mg/dl Magnesium Level 2.0 mg/dl Test 04/05/16 12:23 Bedside Glucose 123 mg/dl Assessment and Plan 85 year old female recovering from partial small bowel obstruction. Telemetry monitoring grossly normal today, no prolonged events overnight. Today nursing notes increase in erythema and clear discharge from incision site. "Acute" small bowel ischemia in setting of incarcerated inguinal hernia treated with surgical reduction and resection of ischemic section. - Incision appearing mildly erythematous with noted clear discharge from nursing - Continue advance diet as tolerated - Seen by surgery, will irrigate wound BID PVCs on monitor - 1 run of 5 PVC; otherwise no events on monitor - Patient denies chest pain - Labs reviewed; electrolytes grossly normal; no gross changes on echocardiogram ; patient is asymptomatic - Troponin has come down to 0.03 - Discontinue troponin monitoring; will transfer off telemetry Acute Bacterial Sinusitis with Cough - Notes green nasal discharge and facial pain - Will start course of Augmentin at this time - Continue Mucinex, [place] and Flonase Acute Blood Loss Anemia secondary to abdominal surgery - Hb 11.5 today; remains stable - Will need follow-up CBC when discharged Chronic systolic CHF - No acute decompensation evidence at this time. - Baseline EF 45%; no change on echocardiogram done at this hospitalization - No action at this time Rate controlled Atrial Fibrillation with pacer - No palpitations; rate 50-60 on monitor overnight - EMR notes history of epistaxis in Dec 2014; risk for anticoagulation as outpatient - Continue PO Metoprolol, Diltiazem - Patient currently on Heparin s.c for DVT prophylaxis; will D/C on discharge New Hypoxic Respiratory Failure - Currently on 2L by nasal cannula; wean as tolerated CKD stage 3 - Cr remains 1.1 - Daily BMP Type 2 Diabetes Mellitus - BSGs today well controlled between 107 and 193 - Continue Insulin Sliding scale with AC/HS checks - Continue Lantus 30 qAM DVT prophylaxis - Continue Heparin 5000 s.c BID Depression - Continue Lexapro Hypothyroid - Continue Levothyroxine Code Status - Level I Code Disposition - OT/PT; expect patient needs to have inpatient rehabilitation - Transferred to med/surg to continue recovery Continued [facility] stay due to: ambulation difficulties, other Discharge planning: uncertain Reviewed: Pt Seen/Exam by Me History felt good this morning but started to feel funny later in the day sinuses felt congested. having cough and feeling congestion in chest as well Constitutional: denies: fever Respiratory: negative: short of breath Cardiovascular: denies chest pain General Appearance: mild distress (restless) Respiratory: lungs clear, no respiratory distress Cardiovascular: regular rate, rhythm Gastrointestinal: normal bowel sounds, soft Neurologic/Psychiatric: alert, oriented x 3 Skin Characteristics: warm/dry Assessment/Plan I have reviewed the medical record and performed a history and physical examination of this patient today. I have discussed the case with Dr. Mendez. The above note reflects my findings, conclusions, and recommendations. surgical incision - opened and irrigated by surgery. follow in am start augmentin for sinusitis. increase frequency of neb treatment for cough follow
[2016-04-05] MEDS: DOXYCYCLINE HYCLATE 100 MG CAP PO SCH (21:27)
[2016-04-06] VITALS (7 sets, daily range): BP systolic 124–151; BP diastolic 55–71; PULSE 18–73; TEMP 36.8–37.4; O2SAT 96–97
[2016-04-06] MEDS: ONDANSETRON INJ 2 MG/ML 2 ML VIAL IV PRN ×2 (00:20→00:45)
[2016-04-06] MEDS: LEVOTHYROXINE 50 MCG TAB PO SCH (06:04)
[2016-04-06 06:56] LABS: HEMATOCRIT 34.3 % (37-47); MEAN CELL VOLUME 89.6 fL (80-100); MEAN CORPUSCULAR HEMOGLOBIN 30.3 pg (25-34); MEAN CORPUSCULAR HGB CONC 33.8 g/dl (32-36); MEAN PLATELET VOLUME 8.8 fL (7.4-10.4); PLATELET COUNT 261 K/uL (130-400); RED BLOOD COUNT 3.83 M/uL (4.2-5.4); WHITE BLOOD COUNT 10.92 K/uL (4.8-10.8)
[2016-04-06 07:22] LABS: BUN/CREATININE RATIO 11.7 (10-20); CALCIUM 8.9 mg/dl (8.5-10.1); CREATININE 1.2 mg/dl (0.60-1.20); MAGNESIUM 1.7 mg/dl (1.8-2.4); POTASSIUM 4.3 mmol/L (3.5-5.1)
[2016-04-06] MEDS: ALBUT/IPRATROP 3MG/0.5MG NEB 3 ML VIAL INH SCH ×3 (07:28→20:15)
--- NOTE | 2016-04-06 08:00 | Surgery Progress Note ---
Surgery Progress Note Date of Service Apr 06, 2016. Subjective Post OP Day: 7 + bowel movement, + flatus, No nausea (Had nausea yeserday but now resolved), No vomiting Objective Vital Signs: Date Time Temp Pulse Resp B/P Pulse Ox O2 Delivery O2 Flow Rate FiO2 04/06/16 07:32 73 18 97 Room Air 04/06/16 07:21 36.8 62 20 132/55 97 Room Air 04/05/16 23:38 36.8 63 18 131/72 95 Room Air 04/05/16 21:25 57 137/52 04/05/16 20:20 Room Air 04/05/16 20:13 57 18 94 Room Air 04/05/16 16:00 Room Air 04/05/16 14:56 36.7 60 18 154/66 95 Room Air 04/05/16 10:45 96 Room Air 04/05/16 10:44 36.7 60 17 131/77 96 Room Air 04/05/16 10:35 36.9 57 18 87 04/05/16 08:05 36.9 57 18 123/62 87 Room Air 04/05/16 08:00 Room Air Abdomen: non tender, non distended, soft Incision(s): clean, drainage (less), erythema (less), findings (healthy granulation tissue at base) Laboratory Results: Results Past 24 Hours Test 04/05/16 12:23 04/05/16 16:45 04/05/16 20:51 04/06/16 06:20 Range/Units Bedside Glucose 123 74 97 70-90 mg/dl White Blood Count 10.92 4.8-10.8 K/uL Red Blood Count 3.83 4.2-5.4 M/uL Hemoglobin 11.6 12.0-16.0 g/dL Hematocrit 34.3 37-47 % Mean Corpuscular Volume 89.6 80-100 fL Mean Corpuscular Hemoglobin 30.3 25-34 pg Mean Corpuscular Hemoglobin Concent 33.8 32-36 g/dl RDW Standard Deviation 46.6 36.4-46.3 fL RDW Coefficient of Variation 14.2 11.5-14.5 % Platelet Count 261 130-400 K/uL Mean Platelet Volume 8.8 7.4-10.4 fL Sodium Level 138 136-145 mmol/L Potassium Level 4.3 3.5-5.1 mmol/L Chloride Level 103 98-107 mmol/L Carbon Dioxide Level 25 21-32 mmol/L Anion Gap 10.0 3-11 mmol/L Blood Urea Nitrogen 14 7-18 mg/dl Creatinine 1.20 0.60-1.20 mg/dl Est Creatinine Clear Calc Drug Dose 31.7 ml/min Estimated GFR () 47.4 Estimated GFR (Non- 40.9 BUN/Creatinine Ratio 11.7 10-20 Random Glucose 98 70-99 mg/dl Calcium Level 8.9 8.5-10.1 mg/dl Magnesium Level 1.7 1.8-2.4 mg/dl Assessment & Plan S/P reduction and repair of right incarcerated inguinal hernia with partial small bowel resection for acute small bowel ischemia Opened incision and irrigated wound, start clindamycin Continue local care Nausea yesterday, now resolved Tolerating diet Bowel function has returned WBC normal Continue OT/PT Discharge planning underway
[2016-04-06] MEDS: METOPROLOL TARTRATE 100 MG TAB PO SCH ×2 (09:00→21:00)
[2016-04-06] MEDS ORDERED: DOXYCYCLINE HYCLATE 50 MG CAP PO SCH (09:00)
[2016-04-06] MEDS: FLUTICASONE PROPIONATE NA SPR 16 GM BTL NAE SCH (09:21)
[2016-04-06] MEDS: LORATADINE 10 MG TAB PO SCH (09:21)
[2016-04-06] MEDS: ESCITALOPRAM OXALATE 10 MG TAB PO SCH (09:22)
[2016-04-06] MEDS: ASPIRIN 81 MG ECTAB PO SCH (09:22)
[2016-04-06] MEDS: FLUCONAZOLE 100 MG TAB PO SCH ×2 (09:22→20:59)
[2016-04-06] MEDS: GUAIFENESIN 600 MG TABCR PO SCH ×2 (09:23→20:59)
[2016-04-06] MEDS: DILTIAZEM HCL 240 MG CAPCR PO SCH (09:30)
[2016-04-06] MEDS ORDERED: NURSING VERBAL MED ORDER ONE ×2 (10:00)
[2016-04-06] MEDS: INSULIN ASPART 100 UNITS/ML 3 ML PEN SC SCH ×4 (10:00→21:00)
[2016-04-06] MEDS: DOXYCYCLINE HYCLATE 100 MG CAP PO SCH ×2 (10:01→21:24)
[2016-04-06] MEDS ORDERED: INSULIN GLARGINE SOLOSTAR 100 UNITS/ML 3 ML PEN SC SCH (10:15)
[2016-04-06] MEDS: HEPARIN SOD 5000 UNIT/0.5 ML CARP SQ SCH ×2 (10:28→21:23)
[2016-04-06] MEDS: INSULIN GLARGINE SOLOSTAR 100 UNITS/ML 3 ML PEN SC SCH (10:30)
--- NOTE | 2016-04-06 18:08 | Family Medicine Progress Note ---
Progress Note Date of Service Apr 06, 2016. Subjective Pt evaluation today including: conversation w/ patient, physical exam, chart review, lab review Pain: Minimal PO Intake: Good Voiding: no voiding problems, no incontinence Doing well at this time Starting to feel better after starting Doxycycline. Notes some soreness over a site where she had graft take for CABG Abdominal incisions stable at this time; mildly uncomfortable but otherwise improving Notes that incisions still leaky appearing Additional Comments: Review of systems otherwise negative Medications Current Inpatient Medications Medications (Trade) Dose Ordered Sig/Leslee Route Start Time Stop Time Status Last Admin Dose Admin Albuterol Sulfate (Ventolin 0.5% 2.5MG/0.5ML Neb) 2.5 mg Q4H PRN INH 03/30/16 05:45 04/29/16 05:44 Future Hold 04/03/16 08:11 2.5 MG Fluticasone Propionate (Flonase Nasal [place]) 2 sprays DAILY ANTOINE 03/30/16 09:00 04/29/16 08:59 04/06/16 09:21 2 SPRAYS Miscellaneous Information (Order Awaiting Action) 1 ea QS N/A 03/30/16 08:00 04/29/16 07:59 Ondansetron HCl (Zofran Inj) 4 mg Q6H PRN IV 03/30/16 05:45 04/29/16 05:44 04/06/16 00:45 4 MG Nitroglycerin (Nitrostat Tab) 0.4 mg UD PRN SL 03/30/16 05:45 04/29/16 05:44 Morphine Sulfate (MoRPHine SULFATE INJ) 4 mg Q1H PRN IV 03/30/16 11:00 04/13/16 10:59 04/02/16 01:05 4 MG Al Hydroxide/Mg Hydroxide (Maalox Susp) 30 ml QID NG 03/30/16 13:00 04/29/16 12:59 Future Hold 04/01/16 21:30 30 ML Glucose (Glucose 40% Gel) 15-30 GRAMS 15 GRAMS... UD PRN PO 03/30/16 14:00 04/29/16 13:59 Glucose (Glucose Chew Tab) 4-8 Tablets 4 Tabl... UD PRN PO 03/30/16 14:00 04/29/16 13:59 Dextrose (Dextrose 50% 50ML Syringe) 25-50ML OF 50% DW IV FOR... UD PRN IV 03/30/16 14:00 04/29/16 13:59 Glucagon 1 mg 1 mg UD PRN SQ 03/30/16 14:00 04/29/16 13:59 Diltiazem HCl/ Dextrose (Cardizem Inj/D5 100ml) 125 ml @ 0 mls/hr Q0M PRN IV 04/01/16 05:00 05/01/16 04:59 Future Hold 04/01/16 06:18 15 MLS/HR Aspirin (Ecotrin Tab) 81 mg DAILY PO 04/02/16 09:00 05/02/16 08:59 04/06/16 09:22 81 MG Docusate Sodium (coLACE CAP) 100 mg BID PRN PO 04/01/16 10:15 05/01/16 10:14 Escitalopram Oxalate (Lexapro Tab) 5 mg DAILY PO 04/02/16 09:00 05/02/16 08:59 04/06/16 09:22 5 MG Fluconazole (Diflucan Tab) 100 mg BID PO 04/01/16 10:30 04/10/16 10:29 04/06/16 09:22 100 MG Insulin Glargine (Lantus Solostar Pen) 30 unit QAM SC 04/02/16 09:00 05/02/16 08:59 04/05/16 07:57 30 UNIT Levothyroxine Sodium (Synthroid Tab) 50 mcg DAILYBB PO 04/02/16 06:00 05/02/16 05:59 04/06/16 06:04 50 MCG Loratadine (Claritin Tab) 10 mg QAM PO 04/02/16 09:00 05/02/16 08:59 04/06/16 09:21 10 MG Metoprolol Tartrate (Lopressor Tab) 100 mg BID PO 04/01/16 21:00 05/01/16 20:59 04/05/16 07:50 100 MG Diltiazem HCl (Cardizem Cd Cap) 240 mg QAM PO 04/02/16 09:00 05/02/16 08:59 04/06/16 09:30 240 MG Fluconazole (Consult) 1 ea UD PRN N/A 04/01/16 10:30 05/01/16 10:29 Insulin Aspart (novoLOG ASPART) SLIDING SCALE If C... ACHS SC 04/01/16 16:15 05/01/16 16:14 04/06/16 14:05 3 UNITS Guaifenesin (Mucinex Contr Rel Tab) 600 mg Q12 PO 04/03/16 21:00 05/03/16 20:59 04/06/16 09:23 600 MG Heparin Sodium (Porcine) (Heparin Sq 5000 Unit/0.5ml) 5,000 unit Q12 SQ 04/03/16 21:00 05/03/16 20:59 04/06/16 10:28 5,000 UNIT Sodium Chloride ([place] Nasal [place]) 2 sprays Q3H PRN NA 04/03/16 18:30 05/03/16 18:29 04/03/16 23:57 2 SPRAYS Hydralazine HCl (HydrALAZINE INJ) 10 mg Q4H PRN IV. 04/03/16 21:45 05/03/16 21:44 Albuterol/ Ipratropium (Duoneb) 3 ml TIDR INH 04/05/16 15:00 05/03/16 11:59 04/06/16 14:12 3 ML Doxycycline Hyclate (Vibramycin Cap) 100 mg BID PO 04/05/16 21:00 04/15/16 20:59 04/06/16 10:01 100 MG Objective Vital Signs Date Time Temp Pulse Resp B/P Pulse Ox O2 Delivery O2 Flow Rate FiO2 04/06/16 15:30 Room Air 04/06/16 15:27 37.4 71 18 126/61 96 Room Air 04/06/16 14:12 62 18 97 Room Air 04/06/16 09:28 58 124/71 04/06/16 08:00 Room Air 04/06/16 07:32 73 18 97 Room Air 04/06/16 07:21 36.8 62 20 132/55 97 Room Air 04/05/16 23:38 36.8 63 18 131/72 95 Room Air 04/05/16 21:25 57 137/52 04/05/16 20:20 Room Air 04/05/16 20:13 57 18 94 Room Air Physical Exam General Appearance: WD/WN, no apparent distress Eyes: normal inspection, EOMI ENT: hearing grossly normal, pharynx normal Neck: supple, no adenopathy, no JVD Respiratory/Chest: lungs clear, no respiratory distress Cardiovascular: regular rate, rhythm, no gallop, no murmur Abdomen: normal bowel sounds, non tender, soft, + pertinent finding (incisions mildly erythematous; no purulence or dehiscence) Extremities: normal range of motion, non-tender, normal inspection Neurologic/Psychiatric: alert, normal mood/affect, oriented x 3 Skin: normal color, warm/dry, no rash Lymphatic: no adenopathy Assessment and Plan 85 year old female recovering from partial small bowel obstruction. Discharged from telemetry 48 hours ago. Started on Doxycycline for URI today, doing much better. "Acute" small bowel ischemia in setting of incarcerated inguinal hernia treated with surgical reduction and resection of ischemic section. - Incision still mildly erythematous but stable - Continue advance diet as tolerated - Seen by surgery, will irrigate wound BID Acute Bacterial Sinusitis with Cough - Notes green nasal discharge and facial pain - Patient ordered Doxycycline; Day 2of treatment; patient notes improvement - Continue Mucinex, [place] and Flonase PVCs on monitor - Patient discharged from telemetry, no further monitoring1 Acute Blood Loss Anemia secondary to abdominal surgery - Hb 11.6 today and stable - Continue daily CBC Chronic systolic CHF - Baseline EF 45%; no change on echocardiogram done at this hospitalization; No action at this time Rate controlled Atrial Fibrillation with pacer - No palpitations; rate 50-60 on monitor overnight - EMR notes history of epistaxis in Dec 2014; risk for anticoagulation as outpatient - Continue PO Metoprolol, Diltiazem - Patient currently on Heparin s.c for DVT prophylaxis; will D/C on discharge New Hypoxic Respiratory Failure - Patient oxygen need weaned to room air - Doing well and comfortable CKD stage 3 - Cr stable at 1.2 - Daily BMP Type 2 Diabetes Mellitus - Continue SSI - AM glucose sligtly low so Lantus Cut to 25 units at AM dose Depression - Continue Lexapro Hypothyroid - Continue Levothyroxine DVT prophylaxis - Continue Heparin 5000 s.c BID Code Status - Level I Code Disposition - OT/PT on board - Patient may require inpatient rehabilitation at discharge. Reviewed: Pt Seen/Exam by Me History feeling stronger today. sinus pressure better Constitutional: denies: fever EENTM: acknowledges: other (pressure on face better) Respiratory: negative: short of breath Cardiovascular: denies chest pain Gastrointestinal/Abdominal: negative: abdominal pain General Appearance: no apparent distress Respiratory: lungs clear, no respiratory distress Cardiovascular: regular rate, rhythm Gastrointestinal: normal bowel sounds, soft, other (dressing present) Neurologic/Psychiatric: alert, oriented x 3 Assessment/Plan I have reviewed the medical record and performed a history and physical examination of this patient today. I have discussed the case with Dr. Mendez. The above note reflects my findings, conclusions, and recommendations.
[2016-04-06] MEDS: MoRPHine SULFATE 4 MG/ML 1 ML CARP\\VIAL IV PRN (21:08)
[2016-04-07] MEDS: LEVOTHYROXINE 50 MCG TAB PO SCH (06:22)
[2016-04-07 07:44] VITALS: PULSE 68; O2SAT 97
[2016-04-07] MEDS: ALBUT/IPRATROP 3MG/0.5MG NEB 3 ML VIAL INH SCH (07:44)
[2016-04-07 07:52] VITALS: BP 130/65; PULSE 67; TEMP 36.8; O2SAT 95
[2016-04-07 08:03] LABS: HEMATOCRIT 31.3 % (37-47); MEAN CELL VOLUME 88.7 fL (80-100); MEAN CORPUSCULAR HEMOGLOBIN 30.3 pg (25-34); MEAN CORPUSCULAR HGB CONC 34.2 g/dl (32-36); MEAN PLATELET VOLUME 8.6 fL (7.4-10.4); PLATELET COUNT 263 K/uL (130-400); RED BLOOD COUNT 3.53 M/uL (4.2-5.4); WHITE BLOOD COUNT 7.58 K/uL (4.8-10.8)
[2016-04-07 08:26] LABS: BUN/CREATININE RATIO 12.5 (10-20); CALCIUM 8.5 mg/dl (8.5-10.1); CREATININE 1.2 mg/dl (0.60-1.20); POTASSIUM 4.4 mmol/L (3.5-5.1)
[2016-04-07] MEDS: FLUTICASONE PROPIONATE NA SPR 16 GM BTL NAE SCH (08:32)
[2016-04-07] MEDS: LORATADINE 10 MG TAB PO SCH (08:36)
[2016-04-07] MEDS: FLUCONAZOLE 100 MG TAB PO SCH (08:36)
[2016-04-07] MEDS: ASPIRIN 81 MG ECTAB PO SCH (08:39)
[2016-04-07] MEDS: ESCITALOPRAM OXALATE 10 MG TAB PO SCH (08:40)
[2016-04-07] MEDS: METOPROLOL TARTRATE 100 MG TAB PO SCH (08:42)
[2016-04-07] MEDS: GUAIFENESIN 600 MG TABCR PO SCH (08:42)
[2016-04-07] MEDS: DOXYCYCLINE HYCLATE 100 MG CAP PO SCH (08:43)
[2016-04-07] MEDS: DILTIAZEM HCL 240 MG CAPCR PO SCH (08:46)
[2016-04-07] MEDS: INSULIN ASPART 100 UNITS/ML 3 ML PEN SC SCH ×2 (09:04→13:25)
[2016-04-07] MEDS: INSULIN GLARGINE SOLOSTAR 100 UNITS/ML 3 ML PEN SC SCH (09:10)
[2016-04-07] MEDS: HEPARIN SOD 5000 UNIT/0.5 ML CARP SQ SCH (09:18)
[2016-04-07 09:29] VITALS: O2SAT 95
[2016-04-07] MEDS ORDERED: INSDGIPEN SC (10:56)
[2016-04-07] MEDS ORDERED: CLC/300 PO (10:56)
--- NOTE | 2016-04-07 11:00 | Discharge Instructions ---
Discharge Instructions Admission Reason for Admission: SBO Discharge Discharge Diagnosis / Problem: "Acute" small bowel ischemia Discharge Goals Goal(s): Improve disease control Activity Recommendations Activity Level: Assistance Required Therapies: Physical Therapy, Occupational Therapy . Additional Information Patient informed of condition: Yes Advance Directives: Yes DNR: Yes Level of Care: Skilled Communicable Disease: No Prognosis: Stable Instructions / Follow-Up Instructions / Follow-Up Follow up with family physician after discharge from [facility] Follow up with Dr. Bender - Please call to schedule appointment [phone] Abdominal wound - Wet to dry dressing change once a day Current Hospital Diet Patient's current hospital diet: Diabetes Type 2 Diet Discharge Diet Recommended Diet: AHA Diet (Heart Healthy) Procedures Procedures Performed: Reduction and repair of right incarcerated inguinal hernia and partial small bowel resection Pending Studies Studies pending at discharge: no Laboratory Results Hemoglobin A1c Test 01/23/16 12:55 Range/Units Estimated Average Glucose 166 mg/dl Hemoglobin A1c 7.4 H 4.5-5.6 % Medical Emergencies . Who to Call and When: Medical Emergencies: If at any time you feel your situation is an emergency, please call 911 immediately. . Non-Emergent Contact Non-Emergency issues call your: Primary Care Provider . . "Provider Documentation" section prepared by Aissatou Maynard. Core Measure Problem Core Measures: None
[2016-04-07 11:13] VITALS: BP 130/65; PULSE 67; TEMP 36.8; O2SAT 95
--- NOTE | 2016-04-07 11:17 | Surgery Progress Note ---
Surgery Progress Note Date of Service Apr 07, 2016. Subjective Post OP Day: + feeling well S/P reduction and repair of right incarcerated inguinal hernia with partial small bowel resection for acute small bowel ischemia POD 8, pt is doing fine, no N/V, no fever, the wound is dry, less redness, Objective Vital Signs: Date Time Temp Pulse Resp B/P Pulse Ox O2 Delivery O2 Flow Rate FiO2 04/07/16 09:29 95 Room Air 04/07/16 07:52 36.8 67 15 130/65 95 Room Air 04/07/16 07:44 68 20 97 Room Air 04/07/16 07:30 Room Air 04/07/16 00:15 Room Air 04/06/16 23:22 36.9 60 18 151/67 97 Room Air 04/06/16 20:10 18 18 96 Room Air 04/06/16 15:30 Room Air 04/06/16 15:27 37.4 71 18 126/61 96 Room Air 04/06/16 14:12 62 18 97 Room Air General Appearance: WD/WN Head: normocephalic Neck: supple Respiratory/Chest: chest non-tender, lungs clear Cardiovascular: regular rate, rhythm, no edema Abdomen: normal bowel sounds, non tender Incision(s): clean, dry Extremities: normal range of motion, non-tender Laboratory Results: Results Past 24 Hours Test 04/06/16 12:12 04/06/16 16:45 04/06/16 20:33 04/07/16 07:27 Range/Units Bedside Glucose 176 155 152 70-90 mg/dl White Blood Count 7.58 4.8-10.8 K/uL Red Blood Count 3.53 4.2-5.4 M/uL Hemoglobin 10.7 12.0-16.0 g/dL Hematocrit 31.3 37-47 % Mean Corpuscular Volume 88.7 80-100 fL Mean Corpuscular Hemoglobin 30.3 25-34 pg Mean Corpuscular Hemoglobin Concent 34.2 32-36 g/dl RDW Standard Deviation 46.0 36.4-46.3 fL RDW Coefficient of Variation 14.2 11.5-14.5 % Platelet Count 263 130-400 K/uL Mean Platelet Volume 8.6 7.4-10.4 fL Sodium Level 138 136-145 mmol/L Potassium Level 4.4 3.5-5.1 mmol/L Chloride Level 104 98-107 mmol/L Carbon Dioxide Level 26 21-32 mmol/L Anion Gap 8.0 3-11 mmol/L Blood Urea Nitrogen 15 7-18 mg/dl Creatinine 1.20 0.60-1.20 mg/dl Est Creatinine Clear Calc Drug Dose 31.7 ml/min Estimated GFR () 47.4 Estimated GFR (Non- 40.9 BUN/Creatinine Ratio 12.5 10-20 Random Glucose 101 70-99 mg/dl Calcium Level 8.5 8.5-10.1 mg/dl Test 04/07/16 08:13 Range/Units Bedside Glucose 112 70-90 mg/dl Assessment & Plan IMP S/P reduction and repair of right incarcerated inguinal hernia with partial small bowel resection for acute small bowel ischemia pt is doing fine, pt can go to [facility] change dressing with wet to dry once a day, F/U Dr. Bender 1 week,
--- NOTE | 2016-04-07 11:50 | Discharge Summary ---
Discharge Summary Admission Date: Mar 30, 2016 at 05:40 Discharge Date: Apr 07, 2016 Discharge Disposition: Rehab Principal Diagnosis: Acute Bowel Ischemia Procedures: Reduction and repair of incarcerated right direct inguinal hernia with partial small bowel resection. Consultations: General surgery - Dr. Bender Medication Reconciliation New Medications: Clindamycin HCl (Clindamycin HCl) 300 Mg Cap 1 CAP PO TID for 7 Days, #21 CAP Insulin Glargine (Lantus Solostar) 100 Unit/Ml Inj 25 UNIT SC QAM for 30 Days Continued Medications: Albuterol Sulf (Albuterol Sulfate) 2.5 Mg/0.5 Ml Nebu 2.5 MG NEB Q4H WHILE AWAKE Aspirin (Aspirin Ec) 81 Mg Tab 81 MG PO DAILY Benzonatate (Tessalon Perles) 100 Mg Cap 100 MG PO TID, CAP Cholecalciferol (Vitamin D3) 1,000 Unit Cap 1000 INTER.UNIT PO QAM Cranberry (Vaccinium Macrocarp (Cranberry) 500 Mg Cap 1000 MG PO BID Cyanocobalamin (Vitamin B12) 1,000 Mcg Tab 1000 MCG PO QAM Diltiazem Hcl Extended Release (Diltiazem Hcl) 240 Mg Cap 240 MG PO QAM Docusate Sodium (Docusate Sodium) 100 Mg Cap 100 MG PO BID PRN for Constipation Escitalopram (Lexapro) 10 Mg Tab 5 MG PO DAILY, TAB Fluconazole (Diflucan) 200 Mg Tab 200 MG PO BID Furosemide (Furosemide) 40 Mg Tab 40 MG PO QAM Lansoprazole (Prevacid) 30 Mg Capcr 30 MG PO DAILY, CAP Levalbuterol (Levalbuterol HCl) 0.63 Mg/3 Ml Nebu 3 ML NEB Q6 PRN for UNDECIDED Levothyroxine Sodium (Levothyroxine Sodium) 50 Mcg Tab 50 MCG PO QAM Loratadine (Claritin) 10 Mg Cap 10 MG PO QAM, CAP Magnesium Oxide (Mag-Ox) 400 Mg Tab 400 MG PO QAM, TAB Metoprolol Tartrate (Lopressor) (Lopressor) 100 Mg Tab 100 MG PO BID Mometasone Furoate (Nasal) (Mometasone Furoate) 50 Mcg/Act Spr 2 SPRAYS ANTOINE DAILY Nitroglycerin (Nitrostat) 0.4 Mg Sub 0.4 MG UT UD PRN for Chest Pain PLACE ONE TABLET UNDER THE TONGUE EVERY 5 MINUTES FOR UP TO 3 DOSES IF NEEDED FOR CHEST PAIN Tiotropium [place]-Olodaterol (Stiolto Respimat 2.5-2.5 Mcg/Act) 1 Aer Aer 2 PUFFS PO DAILY Discontinued Medications: Insulin Glargine (Lantus Solostar) 100 Unit/Ml Inj 30 UNITS SC QAM Discharge Exam Last 24 Hours Test 04/06/16 12:12 04/06/16 16:45 04/06/16 20:33 04/07/16 07:27 Bedside Glucose 176 mg/dl 155 mg/dl 152 mg/dl White Blood Count 7.58 K/uL Red Blood Count 3.53 M/uL Hemoglobin 10.7 g/dL Hematocrit 31.3 % Mean Corpuscular Volume 88.7 fL Mean Corpuscular Hemoglobin 30.3 pg Mean Corpuscular Hemoglobin Concent 34.2 g/dl RDW Standard Deviation 46.0 fL RDW Coefficient of Variation 14.2 % Platelet Count 263 K/uL Mean Platelet Volume 8.6 fL Sodium Level 138 mmol/L Potassium Level 4.4 mmol/L Chloride Level 104 mmol/L Carbon Dioxide Level 26 mmol/L Anion Gap 8.0 mmol/L Blood Urea Nitrogen 15 mg/dl Creatinine 1.20 mg/dl Est Creatinine Clear Calc Drug Dose 31.7 ml/min Estimated GFR () 47.4 Estimated GFR (Non- 40.9 BUN/Creatinine Ratio 12.5 Random Glucose 101 mg/dl Calcium Level 8.5 mg/dl Test 04/07/16 08:13 Bedside Glucose 112 mg/dl Review of Systems: Constitutional: No fever ENT: + problem reported (sinus congestion better) Respiratory: No shortness of breath Cardiovascular: No chest pain Physical Exam: General Appearance: no apparent distress Respiratory/Chest: lungs clear, no respiratory distress Cardiovascular: regular rate, rhythm Abdomen / GI: normal bowel sounds, non tender, soft, + pertinent finding ( incisional dressing +) Neurologic/Psychiatric: alert, oriented x 3 Skin: warm/dry Hospital Course 85 y/o F w/complex Hx including CHF, AF, CAD, DM, CKD 3 - presented to ER with lower abdominal pain and nausea occurring 8 hours prior to arrival. She stated that she was dry heaving but unable to vomit. The pt was recently admitted for bronchitis and SOB but denies significant dyspnea, CP, fevers, dysuria. She is exhibiting a significant degree of pain at the time of admission. Abdominal CT reveals an SBO with a transition point at a R femoral hernia - this is concerning for incarceration. Underwent surgical reduction and resection of ischemic section "Acute" small bowel ischemia in setting of incarcerated inguinal hernia treated with surgical reduction and resection of ischemic section. - Did well postoperatively except Incision later had drainage and was opened and irrigated by surgery and clinda added. Needed wet to dry dressing on discharge. Noted to have multiple PVCs on monitor - Electrolytes checked and echo done with no abnormality. Later moved to medical floor. Acute Blood Loss Anemia secondary to abdominal surgery - Hb stayed stable later on at 11.6 Acute Bacterial Sinusitis with Cough - Developed sinus pressure and Noted green nasal discharge - Started on Doxycycline - received for 2 days. later switched to clinda on discharge to cover the surgical wound infection. - Continued Mucinex, [place] and Flonase Chronic systolic CHF - Baseline EF 45%; Rate controlled Atrial Fibrillation with pacer - No palpitations; rate 50-60 on monitor overnight - EMR notes history of epistaxis in Dec 2014; reason for discontinuation of anticoagulation as per patient's discussion with svp of digital. - Continued PO Metoprolol, Diltiazem CKD stage 3 - Cr stable at 1.2 Type 2 Diabetes Mellitus - BSG lower in 70s to 90s and so lantus decreased to 25 units. Depression - Continue Lexapro Hypothyroid - Continue Levothyroxine Total Time Spent: Greater than 30 minutes (40) This includes examination of the patient, discharge planning, medication reconciliation, and communication with other providers. Discharge Instructions Please refer to the electronic Patient Visit Report (Discharge Instructions) for additional information. [facility]
[2016-04-07 12:28] VITALS: BP 120/70; PULSE 61; TEMP 37; O2SAT 95
[2016-05-22] MEDS ORDERED: CIPR1TAB11 PO (10:18)
[2016-06-19] MEDS ORDERED: PRLNL PO (10:05)
[2016-06-19] MEDS ORDERED: DOXY100C76 PO (10:05)
[2016-08-17] MEDS ORDERED: MCTP EXT (17:32)
[2016-08-17] MEDS ORDERED: ZTHM250 PO (17:32)
[2016-08-17] MEDS ORDERED: INSU3INJ3 SC (17:32)
[2016-08-17] MEDS ORDERED: GFNSR600 PO (17:32)
[2016-08-17] MEDS ORDERED: SYMIN INH (17:32)
== END 2016-04-07 14:01 | DRG 329 ==
LOC: ENRESERVTM → ENRESERVDT → EDBD 02:34 → C.EDA 02:37 → C.EDINP 05:40 → C.2T 12:40 → EDBEDREQ 04-05 09:27 → C.MSW 04-05 10:45
PROVIDERS: ADMIT Internal Medicine; ATTEND Family Medicine
PROC: 0DB80ZZ Excision of Small Intestine, Open Approach (ICD-10-PCS; principal; 2016-03-30 09:00)
PROC: 0YQ50ZZ Repair Right Inguinal Region, Open Approach (ICD-10-PCS; principal; 2016-03-30 09:00)
PROC: 3E10X8Z Irrigation of Skin and Mucous Membranes using Irrigating Substance (ICD-10-PCS; 2016-04-05)
PROC: 3E10X8Z Irrigation of Skin and Mucous Membranes using Irrigating Substance (ICD-10-PCS; 2016-04-06)
DX: K40.30 Unilateral inguinal hernia, with obstruction, without gangrene, not specified as recurrent (principal); K55.059 Acute (reversible) ischemia of intestine, part and extent unspecified; J96.91 Respiratory failure, unspecified with hypoxia; I50.22 Chronic systolic (congestive) heart failure; D62 Acute posthemorrhagic anemia; E11.65 Type 2 diabetes mellitus with hyperglycemia; E11.22 Type 2 diabetes mellitus with diabetic chronic kidney disease; I48.91 Unspecified atrial fibrillation; E03.9 Hypothyroidism, unspecified; I25.10 Atherosclerotic heart disease of native coronary artery without angina pectoris; K21.9 Gastro-esophageal reflux disease without esophagitis; N18.3 Chronic kidney disease, stage 3 (moderate); I49.3 Ventricular premature depolarization; R05 Cough; J01.90 Acute sinusitis, unspecified; B96.89 Other specified bacterial agents as the cause of diseases classified elsewhere; I25.2 Old myocardial infarction; Z87.01 Personal history of pneumonia (recurrent); Z90.710 Acquired absence of both cervix and uterus; Z95.1 Presence of aortocoronary bypass graft; Z95.0 Presence of cardiac pacemaker; Z90.49 Acquired absence of other specified parts of digestive tract; Z90.89 Acquired absence of other organs; Z98.890 Other specified postprocedural states; Z79.4 Long term (current) use of insulin; Z79.82 Long term (current) use of aspirin; Z79.899 Other long term (current) drug therapy

== ENCOUNTER → 2016-04-12 | Outpatient (CLI) | payer OTHER, MEDICARE ==
[~2016-04-12] MED LIST changes: +ASPI81TA28 PO; +ATR25 PO; -ATV5X PO; +BNC5 PO; +CIPR1TAB11 PO; +CLC/300 PO; +DOXY-300 PO; +DOXY100C76 PO; +FERR1TAB13 PO; +FLUC200T4 PO; +GABA-112 PO; +GFNSR600 PO; +INSU3INJ3 SC; +INSU3INJ3 SQ; +LPT10 PO; +LVQ250 PO; +MCTP EXT; +MOME6000 NAE; +OMEG12006 PO; +PRLNL PO; +SYMIN INH; -SYMIN160 INH; +TIOT1AER PO; +TRMCR130WC; +XPNINS NEB
--- NOTE | 2016-04-12 18:10 | DIAGNOSTIC IMAGING REPORT ---
CT OF THE ABDOMEN AND PELVIS WITHOUT CONTRAST CLINICAL HISTORY: Follow-up hernia repair. COMPARISON STUDY: CT of the abdomen and pelvis March 30, 2016. TECHNIQUE: Axial images of the abdomen and pelvis were obtained without IV contrast. Images were reviewed in the axial, sagittal, and coronal planes. FINDINGS: A few nodules within visualized portions of the lungs are unchanged since CT of September 12, 2013. These are benign. Evaluation is compromised given the lack of IV contrast. The gallbladder is surgically absent. Unenhanced images of the liver, spleen, adrenal glands and right kidney are unremarkable. Left renal atrophy is unchanged. There is no evidence for a bowel obstruction. There is evidence for prior umbilical hernia repair with mesh. There is evidence for recent right inguinal hernia repair. There are skin lauren. There is infiltration within the operative bed which is expected. A few ill-defined pockets of fluid are noted within the right groin, within the operative bed. These measure up to 4.1 cm. A small bowel anastomosis is noted with mild adjacent infiltration. There is no pneumatosis, free air or portal venous gas. Skeletal structures are unremarkable. IMPRESSION: 1. Findings consistent with a recent right inguinal hernia repair and small bowel resection with anastomosis. Infiltration within the operative bed, trace operative bed gas and a few ill-defined fluid collection are likely within normal limits in the early postoperative setting. The ill-defined collections could reflect resolving hematomas or seroma. No well-defined collection to strongly suggest an abscess on this unenhanced exam. 2. No bowel obstruction. Electronically signed by: Ramon Bradshaw M.D. 04/12/2016 6:08 PM Dictated Date/Time: 04/12/2016 5:59 PM
== END | disposition home or self-care (01) ==
LOC: C.CTS 16:33
PROVIDERS: ATTEND Physical Medicine & Rehabilitation
DX: Z48.89 Encounter for other specified surgical aftercare (principal)

== ENCOUNTER → 2016-06-20 | Outpatient (CLI) | payer OTHER, MEDICARE ==
[~2016-06-20] MED LIST changes: -CIPR1TAB11 PO; -CLC/300 PO; -TIOT1AER PO; -XPNINS NEB
[2016-06-20 09:52] LABS: ALT/SGPT 18 U/L (12-78); BLOOD UREA NITROGEN 31 mg/dl (7-18); BUN/CREATININE RATIO 20.5 (10-20); CALCIUM 8.8 mg/dl (8.5-10.1); CARBON DIOXIDE 30 mmol/L (21-32); CHLORIDE 96 mmol/L (98-107); CHOLESTEROL 287 mg/dl (0-200); GLUCOSE 147 mg/dl (70-99); SODIUM 134 mmol/L (136-145); URIC ACID 5.8 mg/dl (2.6-7.2)
[2016-06-20 10:00] LABS: ALB/GLOB RATIO 0.7 (0.9-2); ALKALINE PHOSPHATASE 93 U/L (45-117); AST/SGOT 17 U/L (15-37); CHOLESTEROL/HDL RATIO 6.2; HDL CHOLESTEROL 46 mg/dl; PHOSPHORUS 3.7 mg/dl (2.5-4.9); TRIGLYCERIDES 426 mg/dl (0-150)
[2016-06-20 10:03] LABS: ESTIMATED AVERAGE GLUCOSE 180 mg/dl; HA1C FLAG Normal (Normal)
--- NOTE | 2016-06-20 10:18 | DIAGNOSTIC IMAGING REPORT ---
(BARIUM SWALLOW) ESOPHAGUS CLINICAL HISTORY: Difficulty swallowing. Sensation of food being stuck. COMPARISON STUDY: None FLUOROSCOPY TIME: 1.1 minutes. 24 fluoroscopic spot images were acquired.. FINDINGS: The patient swallowed effervescent granules and barium without difficulty. No esophageal masses or ulcerations were visualized. There is no aspiration. The patient swallowed a 1/2 inch barium tablet which freely passed into the stomach. There is mild disordered esophageal motility. IMPRESSION: No evidence of stricture. No evidence of esophageal mass. Electronically signed by: Florian Lua M.D. 06/20/2016 10:16 AM Dictated Date/Time: 06/20/2016 10:07 AM
[2016-06-20 11:12] LABS: RATIO 6769.2 mcg/mg (0-30.0)
== END | disposition home or self-care (01) ==
LOC: C.RAD 08:34
PROVIDERS: ATTEND Physician Assistant
DX: I12.9 Hypertensive chronic kidney disease with stage 1 through stage 4 chronic kidney disease, or unspecified chronic kidney disease (principal); N18.3 Chronic kidney disease, stage 3 (moderate); E11.22 Type 2 diabetes mellitus with diabetic chronic kidney disease; E78.5 Hyperlipidemia, unspecified; K22.4 Dyskinesia of esophagus

== ENCOUNTER → 2016-07-18 | Outpatient (CLI) | payer OTHER, MEDICARE ==
[~2016-07-18] MED LIST changes: +AZIT-57 PO; -ZTHM250 PO
[2016-07-18 16:56] LABS: BASO % 0.3 %; BASO ABS # 0.03 K/uL (0-0.2); COMPLETE YES; EOS % 3.4 %; HEMATOCRIT 40.9 % (37-47); IG% 0.5 %; LYMPH % 23.3 %; MEAN CELL VOLUME 92.3 fL (80-100); MEAN CORPUSCULAR HEMOGLOBIN 31.2 pg (25-34); MEAN CORPUSCULAR HGB CONC 33.7 g/dl (32-36); MEAN PLATELET VOLUME 8.6 fL (7.4-10.4); MONO % 9.4 %; NEUT % 63.1 %; PLATELET COUNT 300 K/uL (130-400); RED BLOOD COUNT 4.43 M/uL (4.2-5.4); WHITE BLOOD COUNT 10.75 K/uL (4.8-10.8)
[2016-07-18 17:23] LABS: ALB/GLOB RATIO 0.7 (0.9-2); ALT/SGPT 18 U/L (12-78); AST/SGOT 16 U/L (15-37); BLOOD UREA NITROGEN 23 mg/dl (7-18); BUN/CREATININE RATIO 17.7 (10-20); CALCIUM 8.9 mg/dl (8.5-10.1); CARBON DIOXIDE 30 mmol/L (21-32); CHLORIDE 98 mmol/L (98-107); GLUCOSE 169 mg/dl (70-99); POTASSIUM 4.3 mmol/L (3.5-5.1); SODIUM 133 mmol/L (136-145)
[2016-07-18 17:24] LABS: ALKALINE PHOSPHATASE 101 U/L (45-117)
== END | disposition home or self-care (01) ==
LOC: C.LABBC 15:32
PROVIDERS: ATTEND Internal Medicine
DX: I10 Essential (primary) hypertension (principal)

== ENCOUNTER 2016-08-15 19:35 | Inpatient (IN) | payer OTHER, MEDICARE ==
[~2016-08-15] VITALS: Ht 160 cm; Wt 62.0 kg
[~2016-08-15 19:35] MED LIST changes: -ATR25 PO; -AZIT-57 PO; -BNC5 PO; -DOXY-300 PO; -FERR1TAB13 PO; -GABA-112 PO; -GFNSR600 PO; -INSU3INJ3 SC; -INSU3INJ3 SQ; -LPT10 PO; -LVQ250 PO; -MCTP EXT; -OMEG12006 PO; -SYMIN INH; -TRMCR130WC
[2016-08-15 21:00] LABS: BASO % 0.2 %; BASO ABS # 0.02 K/uL (0-0.2); COMPLETE YES; EOS % 1.8 %; HEMATOCRIT 35.3 % (37-47); IG% 0.4 %; LYMPH % 17.5 %; MEAN CELL VOLUME 90.7 fL (80-100); MEAN CORPUSCULAR HEMOGLOBIN 31.1 pg (25-34); MEAN CORPUSCULAR HGB CONC 34.3 g/dl (32-36); MEAN PLATELET VOLUME 8.7 fL (7.4-10.4); MONO % 10.1 %; PLATELET COUNT 255 K/uL (130-400); RED BLOOD COUNT 3.89 M/uL (4.2-5.4); WHITE BLOOD COUNT 10.84 K/uL (4.8-10.8)
[2016-08-15] MEDS ORDERED: SODIUM CHLORIDE 0.9% 1000ML 1,000 ML IV STA (21:05)
[2016-08-15 21:09] LABS: PARTIAL THROMBOPLASTIN RATIO 1.2; PROTHROMBIN TIME (PATIENT) 10.4 SECONDS (9.0-12.0)
[2016-08-15 21:15] LABS: URINE APPEARANCE CLEAR (CLEAR); URINE BILIRUBIN NEG (NEG); URINE COLOR YELLOW; URINE NITRITE NEG (NEG); URINE SPECIFIC GRAVITY 1.018 (1.000-1.030); UROBILINOGEN NEG (NEG)
[2016-08-15 21:16] LABS: MANUAL MICROSCOPIC REQUIRED? NO; REVIEW REQ? NO
[2016-08-15 21:17] LABS: ALT/SGPT 16 U/L (12-78); BLOOD UREA NITROGEN 28 mg/dl (7-18); BUN/CREATININE RATIO 16.3 (10-20); CARBON DIOXIDE 29 mmol/L (21-32); CHLORIDE 95 mmol/L (98-107); GLUCOSE 239 mg/dl (70-99); MAGNESIUM 2.1 mg/dl (1.8-2.4); POTASSIUM 3.9 mmol/L (3.5-5.1); SODIUM 131 mmol/L (136-145)
[2016-08-15 21:27] LABS: ALKALINE PHOSPHATASE 95 U/L (45-117); AST/SGOT 17 U/L (15-37); CKMB/CK RATIO 5.1 (0-3.0)
--- NOTE | 2016-08-15 21:32 | DIAGNOSTIC IMAGING REPORT ---
CHEST ONE VIEW PORTABLE CLINICAL HISTORY: Weakness. COMPARISON STUDY: Chest radiograph 12/28/2016. FINDINGS: There is a dual lead left subclavian pacemaker, median sternotomy wires and clips from bypass grafting. Cardiomediastinal silhouette is normal. There is no evidence of pulmonary edema. No consolidation is identified. There is no pneumothorax or pleural effusion. IMPRESSION: No acute cardiopulmonary findings. Electronically signed by: Ramon Bradshaw M.D. 08/15/2016 9:31 PM Dictated Date/Time: 08/15/2016 9:30 PM
[2016-08-15 22:01] LABS: CALCIUM 8.6 mg/dl (8.5-10.1)
[2016-08-15] MEDS ORDERED: ATR25 PO (22:28)
[2016-08-15] MEDS ORDERED: LPT10 PO (22:28)
[2016-08-15] MEDS ORDERED: INSU3INJ3 SC (22:28)
[2016-08-15] MEDS ORDERED: LVQ250 PO (22:28)
--- NOTE | 2016-08-15 22:40 | DIAGNOSTIC IMAGING REPORT ---
CT OF THE CERVICAL SPINE WITHOUT CONTRAST CLINICAL HISTORY: Neck pain, dysphagia, productive cough. COMPARISON STUDY: No previous studies for comparison. TECHNIQUE: Helical axial images of the cervical spine were obtained without IV contrast. Sagittal and coronal reconstructions were viewed. FINDINGS: No acute cervical spine fracture is identified. The craniocervical junction is intact. There is mild to moderate multilevel degenerative disc disease and facet arthrosis. Central canal is suboptimally assessed by CT. There is no prevertebral edema. The epiglottis is normal. There is no cervical lymphadenopathy within visualized portions of the neck. The chest will be reported separately. IMPRESSION: 1. No acute cervical spine fracture or subluxation. 2. [id number] multilevel degenerative disc disease and facet arthrosis of the cervical spine. Electronically signed by: Ramon Bradshaw M.D. 08/15/2016 10:39 PM Dictated Date/Time: 08/15/2016 10:35 PM
--- NOTE | 2016-08-15 22:49 | DIAGNOSTIC IMAGING REPORT ---
CT OF THE CHEST WITHOUT IV CONTRAST CLINICAL HISTORY: Neck pain, dysphagia, productive cough COMPARISON STUDY: Chest CT December 30, 2015 and chest radiograph performed earlier today. TECHNIQUE: Axial images of the chest were obtained without IV contrast. Images were reviewed in the axial, sagittal, and coronal planes. IV contrast was not administered for this examination. FINDINGS: A mildly enlarged precarinal lymph node remains unchanged since prior exam. There are median sternotomy wires, clips from bypass grafting and a left subclavian pacemaker. There is no pericardial effusion. The size the heart is normal. Central airways are patent. There are mild groundglass opacities with mosaic attenuation within the lungs. Numerous pulmonary nodules measuring up to 6 mm are unchanged since prior exams. There is no pneumothorax or pleural effusion. Bony thorax is unremarkable. Visualized portions of the upper abdomen demonstrate left renal atrophy. Bilateral adrenal nodularity is unchanged. IMPRESSION: 1. Mild groundglass opacities and mosaic attenuation within the lungs which favor air trapping. A mild infectious process could appear similar. No consolidation. 2. No significant change in scattered subcentimeter pulmonary nodules. 3. Stable mildly enlarged precarinal lymph node. Electronically signed by: Ramon Bradshaw M.D. 08/15/2016 10:47 PM Dictated Date/Time: 08/15/2016 10:39 PM
[2016-08-15] MEDS ORDERED: LEVAQUIN 750MG / 150ML D5W IV STA (23:41)
[2016-08-15] MEDS ORDERED: DOXYCYCLINE IV 100 MG in DEXTROSE 5% 100ML 100 ML IV STA (23:52)
[2016-08-16] VITALS (11 sets, daily range): BP systolic 120–170; BP diastolic 44–73; PULSE 59–90; TEMP 36.4–37.1; O2SAT 91–100; BMI 24.2
--- NOTE | 2016-08-16 00:42 | History and Physical ---
History & Physical Date & Time of Service: August 16, 2016 at 00:08 Chief Complaint: Chf, Kidney, Sugar High Primary Care Physician: Deion Downs M.D. History of Present Illness Source: patient, other 85 y/o F w/complex Hx including CHF, AF, CAD, DM, CKD 3, pacemaker - Pt is was sent from an assisted living facility due primarily to a persistent cough. She has been treated with Levaquin for the past 10 days but has symptomatically worsened despite this. A CT chest was obtained in the ER revealing B/L ground glass opacities which may be infectious. The pt herself complains of a productive cough, mild SOB and neck discomfort, describing pain on the R side of her neck and a degree of dysphagia. She has not had CP or fevers but does have chest wall pain with coughing. Initial labs reveal acute on chronic RF and hyperglycemia. The pt follows up with a mill attendant and was recently evaluated for dysphagia - possibly with a bronchoscopy - which was attributed to esophageal candidiasis. She is currently being treated with Diflucan and states she has had only minimal improvement. She is on a ground or soft diet. Past Medical/Surgical History Medical Problems: (1) Atrial fibrillation Status: Chronic (2) CHF (congestive heart failure) Status: Chronic (echo 01/07 EF 45% - mild LV hypokinesis) (3) DM (diabetes mellitus) Status: Chronic (4) GERD (gastroesophageal reflux disease) Status: Chronic (5) Pacemaker - atrial Status: Chronic (6) Renal failure Status: Chronic 7) SBO due to incarcerated surgery - requiring surgical intervention 04/10 Surgical Problems: (1) History of cardiac cath Status: Resolved (2) S/P quintuple vessel bypass Status: Resolved 3) Hysterectomy 4) Hernia repair w/mesh 5) Cholecystectomy 6) Appendectomy Family History Omitted secondary to age Social History Smoking Status: Never Smoker Drug Use: none Marital Status: Housing status: lives alone Occupational Status: retired Allergies Coded Allergies: Fenofibrate (Verified Allergy, Intermediate, rash, 08/15/16) Amoxicillin (Verified Allergy, Unknown, UNKNOWN, 08/15/16) Fexofenadine (Verified Allergy, Unknown, UNKNOWN, 08/15/16) Irbesartan (Verified Allergy, Unknown, UNKNOWN, 08/15/16) Niacin (Verified Allergy, Unknown, RASH, 08/15/16) Penicillins (Verified Allergy, Unknown, UNKNOWN, 08/15/16) Sulfa Antibiotics (Verified Allergy, Unknown, UNKNOWN, 08/15/16) Tomato (Verified Allergy, Unknown, GI SYMPTOMS, 08/15/16) Flumazenil (Unverified Adverse Reaction, Intermediate, DELIRIUM, 08/15/16) anxious, increased heart rate, increased blood pressure Home Medications Scheduled Albuterol Sulf (Albuterol Sulfate), 2.5 MG NEB Q4H Aspirin (Aspirin Ec), 81 MG PO DAILY Atorvastatin (Atorvastatin Calcium), 1 TAB PO QPM Cholecalciferol (Vitamin D3), 1,000 INTER.UNIT PO QAM Cranberry (Vaccinium Macrocarp (Cranberry), 1,000 MG PO BID Cyanocobalamin (Vitamin B12), 1,000 MCG PO QAM Diltiazem Hcl Extended Release (Diltiazem Hcl), 240 MG PO QAM Escitalopram (Lexapro), 5 MG PO DAILY Fluconazole (Diflucan), 200 MG PO BID Furosemide (Furosemide), 40 MG PO QAM Hydroxyzine HCl (Hydroxyzine HCl), 1 TAB PO HS Insulin Detemir (Levemir Flextouch), 30 UNITS SC QAM Lansoprazole (Prevacid), 30 MG PO DAILY Levofloxacin (Levofloxacin), 1 TAB PO DAILY Levothyroxine Sodium (Levothyroxine Sodium), 50 MCG PO QAM Loratadine (Claritin), 10 MG PO QAM Magnesium Oxide (Mag-Ox), 400 MG PO QAM Metoprolol Tartrate (Lopressor) (Lopressor), 100 MG PO BID Mometasone Furoate (Nasal) (Mometasone Furoate), 2 SPRAYS ANTOINE DAILY Scheduled PRN Benzonatate (Tessalon Perles), 100 MG PO TID PRN for Cough Docusate Sodium (Docusate Sodium), 100 MG PO BID PRN for Constipation Nitroglycerin (Nitrostat), 0.4 MG UT UD PRN for Chest Pain Review of Systems Constitutional: No chills, No fever, No sweats Eyes: No eye pain, No worsening of vision ENT: No hearing loss, No nasal symptoms Respiratory: + cough, + shortness of breath, + sputum, No wheezing Cardiovascular: No PND, No chest pain, No orthopnea Abdomen: No nausea, No pain, No vomiting Musculoskeletal: No joint pain, No muscle pain Genitourinary - Female: No dysuria, No urinary frequency, No urinary urgency Neurologic: + weakness, No memory loss, No paralysis Psychiatric: No depression symptoms Endocrine: No fatigue Hematologic / Lymphatic: No abnormal bleeding/bruising Integumentary: No rash Allergic / Immunologic: No environmental allergies Physical Exam Vital Signs Date Time Temp Pulse Resp B/P Pulse Ox O2 Delivery O2 Flow Rate FiO2 08/15/16 21:35 60 24 94 08/15/16 21:32 143/54 08/15/16 21:05 61 22 94 08/15/16 21:01 119/66 08/15/16 20:56 60 20 174/68 94 Room Air 08/15/16 20:43 174/68 08/15/16 20:35 60 22 95 08/15/16 20:19 60 08/15/16 20:10 94 Room Air 08/15/16 20:10 94 Room Air 08/15/16 19:38 36.9 60 18 147/62 93 Room Air General Appearance: no apparent distress, + pertinent finding (kyphotic elderly female in no apparent distress) Head: normocephalic, atraumatic Eyes: normal inspection, EOMI ENT: normal ENT inspection, pharynx normal Neck: supple, no JVD Respiratory/Chest: chest non-tender, lungs clear, normal breath sounds Cardiovascular: regular rate, rhythm, no edema, no gallop, no JVD, no murmur, normal peripheral pulses Abdomen/GI: normal bowel sounds, non tender, soft Back: no CVA tenderness, no muscle spasm, + pertinent finding (Kyphosis) Neurologic/Psych: country director II-XII nml as tested, no motor/sensory deficits, alert, normal mood/affect, normal reflexes, oriented x 3 Skin: normal color, warm/dry, no rash Diagnostics Laboratory Results Results Past 24 Hours Test 08/15/16 20:25 08/15/16 20:40 08/15/16 20:49 Range/Units White Blood Count 10.84 4.8-10.8 K/uL Red Blood Count 3.89 4.2-5.4 M/uL Hemoglobin 12.1 12.0-16.0 g/dL Hematocrit 35.3 37-47 % Mean Corpuscular Volume 90.7 80-100 fL Mean Corpuscular Hemoglobin 31.1 25-34 pg Mean Corpuscular Hemoglobin Concent 34.3 32-36 g/dl Platelet Count 255 130-400 K/uL Mean Platelet Volume 8.7 7.4-10.4 fL Neutrophils (%) (Auto) 70.0 % Lymphocytes (%) (Auto) 17.5 % Monocytes (%) (Auto) 10.1 % Eosinophils (%) (Auto) 1.8 % Basophils (%) (Auto) 0.2 % Neutrophils # (Auto) 7.58 1.4-6.5 K/uL Lymphocytes # (Auto) 1.90 1.2-3.4 K/uL Monocytes # (Auto) 1.10 0.11-0.59 K/uL Eosinophils # (Auto) 0.20 0-0.5 K/uL Basophils # (Auto) 0.02 0-0.2 K/uL RDW Standard Deviation 44.1 36.4-46.3 fL RDW Coefficient of Variation 13.4 11.5-14.5 % Immature Granulocyte % (Auto) 0.4 % Immature Granulocyte # (Auto) 0.04 0.00-0.02 K/uL Prothrombin Time 10.4 9.0-12.0 SECONDS Prothromb Time International Ratio 1.0 0.9-1.1 Activated Partial Thromboplast Time 31.0 21.0-31.0 SECONDS Partial Thromboplastin Ratio 1.2 Sodium Level 131 136-145 mmol/L Potassium Level 3.9 3.5-5.1 mmol/L Chloride Level 95 98-107 mmol/L Carbon Dioxide Level 29 21-32 mmol/L Anion Gap 7.0 3-11 mmol/L Blood Urea Nitrogen 28 7-18 mg/dl Creatinine 1.70 0.60-1.20 mg/dl Est Creatinine Clear Calc Drug Dose 19.3 ml/min Estimated GFR () 30.9 Estimated GFR (Non- 26.6 BUN/Creatinine Ratio 16.3 10-20 Random Glucose 239 70-99 mg/dl Calcium Level 8.6 8.5-10.1 mg/dl Magnesium Level 2.1 1.8-2.4 mg/dl Total Bilirubin 0.5 0.2-1 mg/dl Direct Bilirubin < 0.1 0-0.2 mg/dl Aspartate Amino Transf (AST/SGOT) 17 15-37 U/L Alanine Aminotransferase (ALT/SGPT) 16 12-78 U/L Alkaline Phosphatase 95 45-117 U/L Total Creatine Kinase 47 26-192 U/L Creatine Kinase MB 2.4 0.5-3.6 ng/ml Creatine Kinase MB Ratio 5.1 0-3.0 Troponin I < 0.015 0-0.045 ng/ml Total Protein 6.6 6.4-8.2 gm/dl Albumin 2.2 3.4-5.0 gm/dl Lipase 104 73-393 U/L Thyroid Stimulating Hormone (TSH) 3.170 0.300-4.500 uIu/ml Urine Color YELLOW Urine Appearance CLEAR CLEAR Urine pH 6.0 4.5-7.5 Urine Specific [place] 1.018 1.000-1.030 Urine Protein 3+ NEG Urine Glucose (UA) 1+ NEG Urine Ketones NEG NEG Urine Occult Blood NEG NEG Urine Nitrite NEG NEG Urine Bilirubin NEG NEG Urine Urobilinogen NEG NEG Urine Leukocyte Esterase SMALL NEG Urine WBC (Auto) 10-30 0-5 /hpf Urine RBC (Auto) 5-10 0-4 /hpf Urine Hyaline Casts (Auto) 1-5 0-5 /lpf Urine Epithelial Cells (Auto) 10-20 0-5 /lpf Urine Bacteria (Auto) NEG NEG Bedside Lactic Acid Venous 1.48 0.90-1.70 mmol/L Microbiology Results 08/15/16 Blood Culture, Received Pending 08/15/16 Blood Culture, Received Pending Diagnostic Radiology Neck CT: 1. No acute cervical spine fracture or subluxation. 2. [id number] multilevel degenerative disc disease and facet arthrosis of the cervical spine. CT chest 1. Mild ground glass opacities and mosaic attenuation within the lungs which favor air trapping. A mild infectious process could appear similar. No consolidation. 2. No significant change in scattered subcentimeter pulmonary nodules. EKG Atrial pacing at 60BPM, LBBB - no change from previous Impression Assessment and Plan 85 y/o F w/complex Hx including CHF, AF, CAD, DM, CKD 3, atrial pacer - Pt is was sent from a an assisted living facility due primarily to a persistent cough. She has been treated with Levaquin for the past 10 days but has symptomatically worsened despite this. A CT chest was obtained in the ER revealing B/L ground glass opacities which may be infectious. The pt herself complains of a productive cough, mild SOB and neck discomfort, describing pain on the R side of her neck and a degree of dysphagia. She has not had CP or fevers but does have chest wall pain with coughing. Initial labs reveal acute on chronic RF and hyperglycemia. The pt follows up with a mill attendant and was recently evaluated for dysphagia - possibly with a bronchoscopy - which was attributed to esophageal candidiasis. She is currently being treated with Diflucan and states she has had only minimal improvement. She is on a ground or soft diet. 1) Persistent cough - possible pneumonia or pneumonitis. Due to multiple allergies and possible aspiration, we will place the pt on Clindamycin and Zithromax. Duonebs will be provided PRN. We will obtain a swallow eval. We will consult pulmonology as it a diagnosis of active pneumonia is not definitive and antibiotic use may not be merited. 2) CHF - clinically euvolemic or dehydrated - no obvious congestion on imaging - holding AM lasix due to renal impairment - monitor volume status - cont B katie 3) CKD and acute on chronic RF - creatinine has been elevated since 06/08 on review of recent labs. We will provide gentle IVF, monitor volume status and recheck BMP AM. Lasix held pending AM reevaluation. 4) DM - placed on SS with AM Levemir 5) AF - rate paced at 60 BPM - cont B-katie and Diltiazem 6) Esophageal candidiasis - cont Diflucan Full code - Heparin prophylaxis Total time for this admit including review of labs, meds, EKG - Discussion with pt and ER attending - 40 min Level of Care Med/Surg Resuscitation Status FULL RESUSCITATION VTE Prophylaxis Given or contraindicated: Unfractionated heparin SQ
--- NOTE | 2016-08-16 01:18 | EMERGENCY ROOM VISIT NOTE ---
History Report prepared by Juan: Angel Sims Under the Supervision of: Dr. Pal Weaver M.D. First contact with patient: 20:07 Chief Complaint: COUGH Stated Complaint: CHF, KIDNEY, SUGAR HIGH History of Present Illness The patient is an 86 year old female who presents to the Emergency Room with complaints of an intermittent productive cough for the past several months. She currently rates her discomfort as a 7/10 in severity. The patient states she has been taking an antibiotic for her illness that was prescribed a week ago. She reports a yellow sputum when she coughs. The patient states that she feels like she is choking and her neck is sore. She reports that she gets right sided neck pain that radiates to her arms. The patient states that the pain was so severe that she was unable to lift her arm. She also reports that her ear feels like it has water in it. The patient states that she has been having bowel problems and abdominal pain. The patient reports that she has taken Tylenol to decrease her fever that has been occurring for 3 days and states that it has relieved her fever. The patient states that she feels like she is choking when she swallows. She reports that she has a history of yeast infections and has had a bronchoscope performed on her lungs. The patient denies LOC, headache, chills, diaphoresis, visual changes, chest pain, breathing difficulties, nausea , vomiting, back pain, melena, hematochezia, urinary symptoms, numbness, weakness, lymphadenopathy, rash, or other complaints. 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 A total of ten systems were reviewed and were otherwise negative. Past Medical & Surgical Medical Problems: (1) Acute exacerbation of CHF (congestive heart failure) (2) Atrial fibrillation (3) CHF (congestive heart failure) (4) DM (diabetes mellitus) (5) GERD (gastroesophageal reflux disease) (6) Pacemaker (7) PNA (pneumonia) (8) Renal failure (9) SBO (small bowel obstruction) Surgical Problems: (1) History of cardiac cath (2) S/P quintuple vessel bypass Family History Omitted secondary to age Social History Smoking Status: Never Smoker Alcohol Use: none Drug Use: none Marital Status: Housing Status: lives alone Occupation Status: retired Current/Historical Medications Scheduled Albuterol Sulf (Albuterol Sulfate), 2.5 MG NEB Q4H Aspirin (Aspirin Ec), 81 MG PO DAILY Atorvastatin (Atorvastatin Calcium), 1 TAB PO QPM Cholecalciferol (Vitamin D3), 1,000 INTER.UNIT PO QAM Cranberry (Vaccinium Macrocarp (Cranberry), 1,000 MG PO BID Cyanocobalamin (Vitamin B12), 1,000 MCG PO QAM Diltiazem Hcl Extended Release (Diltiazem Hcl), 240 MG PO QAM Escitalopram (Lexapro), 5 MG PO DAILY Fluconazole (Diflucan), 200 MG PO BID Furosemide (Furosemide), 40 MG PO QAM Hydroxyzine HCl (Hydroxyzine HCl), 1 TAB PO HS Insulin Detemir (Levemir Flextouch), 30 UNITS SC QAM Lansoprazole (Prevacid), 30 MG PO DAILY Levofloxacin (Levofloxacin), 1 TAB PO DAILY Levothyroxine Sodium (Levothyroxine Sodium), 50 MCG PO QAM Loratadine (Claritin), 10 MG PO QAM Magnesium Oxide (Mag-Ox), 400 MG PO QAM Metoprolol Tartrate (Lopressor) (Lopressor), 100 MG PO BID Mometasone Furoate (Nasal) (Mometasone Furoate), 2 SPRAYS ANTOINE DAILY Scheduled PRN Benzonatate (Tessalon Perles), 100 MG PO TID PRN for Cough Docusate Sodium (Docusate Sodium), 100 MG PO BID PRN for Constipation Nitroglycerin (Nitrostat), 0.4 MG UT UD PRN for Chest Pain Allergies Coded Allergies: Fenofibrate (Verified Allergy, Intermediate, rash, 08/15/16) Amoxicillin (Verified Allergy, Unknown, UNKNOWN, 08/15/16) Fexofenadine (Verified Allergy, Unknown, UNKNOWN, 08/15/16) Irbesartan (Verified Allergy, Unknown, UNKNOWN, 08/15/16) Niacin (Verified Allergy, Unknown, RASH, 08/15/16) Penicillins (Verified Allergy, Unknown, UNKNOWN, 08/15/16) Sulfa Antibiotics (Verified Allergy, Unknown, UNKNOWN, 08/15/16) Tomato (Verified Allergy, Unknown, GI SYMPTOMS, 08/15/16) Flumazenil (Unverified Adverse Reaction, Intermediate, DELIRIUM, 08/15/16) anxious, increased heart rate, increased blood pressure Physical Exam Vital Signs Date Time Temp Pulse Resp B/P Pulse Ox O2 Delivery O2 Flow Rate FiO2 08/16/16 00:08 60 08/15/16 21:35 60 24 94 08/15/16 21:32 143/54 08/15/16 21:05 61 22 94 08/15/16 21:01 119/66 08/15/16 20:56 60 20 174/68 94 Room Air 08/15/16 20:43 174/68 08/15/16 20:35 60 22 95 08/15/16 20:19 60 08/15/16 20:10 94 Room Air 08/15/16 20:10 94 Room Air 08/15/16 19:38 36.9 60 18 147/62 93 Room Air Physical Exam GENERAL: Awake, alert, well-appearing, in no distress HENT: Normocephalic, atraumatic. Oropharynx unremarkable. EYES: Normal conjunctiva. Sclera non-icteric. NECK: Supple. Kyphotic, No nuchal rigidity. FROM. No JVD. RESPIRATORY: wheezing on the right side. CARDIAC: Regular rate, normal rhythm. Extremities warm and well perfused. Pulses equal. ABDOMEN: Soft, non-distended. No tenderness to palpation. No rebound or guarding. No masses. BACK: Kyphotic on examination. RECTAL: Deferred. MUSCULOSKELETAL: Chest examination reveals no tenderness. The back is symmetrical on inspection without obvious abnormality. There is no CVA tenderness to palpation. No joint edema. LOWER EXTREMITIES: Calves are equal size bilaterally and non-tender. edema. No discoloration. NEURO: Normal sensorium. No sensory or motor deficits noted. SKIN: No rash or jaundice noted. Medical Decision & Procedures ER Provider Diagnostic Interpretation: Radiology results as stated below per my review and radiologist interpretation: CHEST ONE VIEW PORTABLE CLINICAL HISTORY: Weakness. COMPARISON STUDY: Chest radiograph 12/28/2016. FINDINGS: There is a dual lead left subclavian pacemaker, median sternotomy wires and clips from bypass grafting. Cardiomediastinal silhouette is normal. There is no evidence of pulmonary edema. No consolidation is identified. There is no pneumothorax or pleural effusion. IMPRESSION: No acute cardiopulmonary findings. Electronically signed by: Ramon Bradshaw M.D. 08/15/2016 9:31 PM Dictated Date/Time: 08/15/2016 9:[address] OF THE CHEST WITHOUT IV CONTRAST CLINICAL HISTORY: Neck pain, dysphagia, productive cough COMPARISON STUDY: Chest CT December 30, 2015 and chest radiograph performed earlier today. TECHNIQUE: Axial images of the chest were obtained without IV contrast. Images were reviewed in the axial, sagittal, and coronal planes. IV contrast was not administered for this examination. FINDINGS: A mildly enlarged precarinal lymph node remains unchanged since prior exam. There are median sternotomy wires, clips from bypass grafting and a left subclavian pacemaker. There is no pericardial effusion. The size the heart is normal. Central airways are patent. There are mild groundglass opacities with mosaic attenuation within the lungs. Numerous pulmonary nodules measuring up to 6 mm are unchanged since prior exams. There is no pneumothorax or pleural effusion. Bony thorax is unremarkable. Visualized portions of the upper abdomen demonstrate left renal atrophy. Bilateral adrenal nodularity is unchanged. IMPRESSION: 1. Mild groundglass opacities and mosaic attenuation within the lungs which favor air trapping. A mild infectious process could appear similar. No consolidation. 2. No significant change in scattered subcentimeter pulmonary nodules. 3. Stable mildly enlarged precarinal lymph node. Electronically signed by: Ramon Bradshaw M.D. 08/15/2016 10:47 PM Dictated Date/Time: 08/15/2016 10:[address] OF THE CERVICAL SPINE WITHOUT CONTRAST CLINICAL HISTORY: Neck pain, dysphagia, productive cough. COMPARISON STUDY: No previous studies for comparison. TECHNIQUE: Helical axial images of the cervical spine were obtained without IV contrast. Sagittal and coronal reconstructions were viewed. FINDINGS: No acute cervical spine fracture is identified. The craniocervical junction is intact. There is mild to moderate multilevel degenerative disc disease and facet arthrosis. Central canal is suboptimally assessed by CT. There is no prevertebral edema. The epiglottis is normal. There is no cervical lymphadenopathy within visualized portions of the neck. The chest will be reported separately. IMPRESSION: 1. No acute cervical spine fracture or subluxation. 2. [id number] multilevel degenerative disc disease and facet arthrosis of the cervical spine. Electronically signed by: Ramon Bradshaw M.D. 08/15/2016 10:39 PM Dictated Date/Time: 08/15/2016 10:35 PM Laboratory Results 08/15/16 20:25 Red Blood Count 3.89, Mean Corpuscular Volume 90.7, Mean Corpuscular Hemoglobin 31.1, Mean Corpuscular Hemoglobin Concent 34.3, Mean Platelet Volume 8.7, Neutrophils (%) (Auto) 70.0, Lymphocytes (%) (Auto) 17.5, Monocytes (%) (Auto) 10.1, Eosinophils (%) (Auto) 1.8, Basophils (%) (Auto) 0.2, Neutrophils # (Auto ) 7.58, Lymphocytes # (Auto) 1.90, Monocytes # (Auto) 1.10, Eosinophils # (Auto ) 0.20, Basophils # (Auto) 0.02 08/15/16 20:25 Test 08/15/16 20:25 08/15/16 20:40 08/15/16 20:49 White Blood Count 10.84 K/uL (4.8-10.8) Red Blood Count 3.89 M/uL (4.2-5.4) Hemoglobin 12.1 g/dL (12.0-16.0) Hematocrit 35.3 % (37-47) Mean Corpuscular Volume 90.7 fL (80-100) Mean Corpuscular Hemoglobin 31.1 pg (25-34) Mean Corpuscular Hemoglobin Concent 34.3 g/dl (32-36) Platelet Count 255 K/uL (130-400) Mean Platelet Volume 8.7 fL (7.4-10.4) Neutrophils (%) (Auto) 70.0 % Lymphocytes (%) (Auto) 17.5 % Monocytes (%) (Auto) 10.1 % Eosinophils (%) (Auto) 1.8 % Basophils (%) (Auto) 0.2 % Neutrophils # (Auto) 7.58 K/uL (1.4-6.5) Lymphocytes # (Auto) 1.90 K/uL (1.2-3.4) Monocytes # (Auto) 1.10 K/uL (0.11-0.59) Eosinophils # (Auto) 0.20 K/uL (0-0.5) Basophils # (Auto) 0.02 K/uL (0-0.2) RDW Standard Deviation 44.1 fL (36.4-46.3) RDW Coefficient of Variation 13.4 % (11.5-14.5) Immature Granulocyte % (Auto) 0.4 % Immature Granulocyte # (Auto) 0.04 K/uL (0.00-0.02) Prothrombin Time 10.4 SECONDS (9.0-12.0) Prothromb Time International Ratio 1.0 (0.9-1.1) Activated Partial Thromboplast Time 31.0 SECONDS (21.0-31.0) Partial Thromboplastin Ratio 1.2 Anion Gap 7.0 mmol/L (3-11) Est Creatinine Clear Calc Drug Dose 19.3 ml/min Estimated GFR () 30.9 Estimated GFR (Non- 26.6 BUN/Creatinine Ratio 16.3 (10-20) Calcium Level 8.6 mg/dl (8.5-10.1) Magnesium Level 2.1 mg/dl (1.8-2.4) Total Bilirubin 0.5 mg/dl (0.2-1) Direct Bilirubin < 0.1 mg/dl (0-0.2) Aspartate Amino Transf (AST/SGOT) 17 U/L (15-37) Alanine Aminotransferase (ALT/SGPT) 16 U/L (12-78) Alkaline Phosphatase 95 U/L (45-117) Total Creatine Kinase 47 U/L (26-192) Creatine Kinase MB 2.4 ng/ml (0.5-3.6) Creatine Kinase MB Ratio 5.1 (0-3.0) Troponin I < 0.015 ng/ml (0-0.045) Total Protein 6.6 gm/dl (6.4-8.2) Albumin 2.2 gm/dl (3.4-5.0) Lipase 104 U/L (73-393) Thyroid Stimulating Hormone (TSH) 3.170 uIu/ml (0.300-4.500) Urine Color YELLOW Urine Appearance CLEAR (CLEAR) Urine pH 6.0 (4.5-7.5) Urine Specific [place] 1.018 (1.000-1.030) Urine Protein 3+ (NEG) Urine Glucose (UA) 1+ (NEG) Urine Ketones NEG (NEG) Urine Occult Blood NEG (NEG) Urine Nitrite NEG (NEG) Urine Bilirubin NEG (NEG) Urine Urobilinogen NEG (NEG) Urine Leukocyte Esterase SMALL (NEG) Urine WBC (Auto) 10-30 /hpf (0-5) Urine RBC (Auto) 5-10 /hpf (0-4) Urine Hyaline Casts (Auto) 1-5 /lpf (0-5) Urine Epithelial Cells (Auto) 10-20 /lpf (0-5) Urine Bacteria (Auto) NEG (NEG) Bedside Lactic Acid Venous 1.48 mmol/L (0.90-1.70) Laboratory results reviewed by me Medications Administered Medications (Trade) Dose Ordered Sig/Leslee Route Start Time Stop Time Status Last Admin Dose Admin Sodium Chloride 1,000 ml @ 125 mls/hr Q8H STAT IV 08/15/16 21:05 08/16/16 05:04 08/15/16 21:18 125 MLS/HR Doxycycline Hyclate/Dextrose (Vibramycin IV/ D5 100ml) 110 ml @ 50 mls/hr NOW STAT IV 08/15/16 23:52 08/16/16 02:03 08/16/16 00:24 50 MLS/HR ECG Indication: other (cough) Rate (beats per minute): 60 Rhythm: other (paced rhythm) Findings: LBBB, no acute ischemic change, paced rhythm, no ectopy ED Course 2055: The patient was evaluated in room B7. A complete history and physical exam was performed. 2104: Ordered Sodium Chloride 1000 ml @ 125 mls/hr IV. Medical Decision Triage Nursing notes reviewed. The patient's presentation and history were concerning for pulmonary symptoms. Patient also had neck pain. She is kyphotic. Etiologies such as pneumonia, COPD, reactive airway disease, CHF, cardiac ischemia, pulmonary embolism, pneumothorax, musculoskeletal, infections, gastrointestinal, as well as others were entertained. The patient was evaluated. Blood work was repeated. She can't have a white blood cell count of 10.8. Her creatinine was minimally elevated. The patient had an unremarkable chemistry panel otherwise and her cardiac markers were negative. The patient underwent imaging as above. She has a mild pneumonitis and mild acute kidney injury. She has not been getting better despite oral Levaquin. The patient does not feel that she is doing well at her residence. I discussed further evaluation and management in the hospital. Consultation was made with internal medicine. The patient was evaluated for further management. The chart was completed utilizing Dragon Speech voice recognition software. Grammatical errors, random word insertions, pronoun errors, and incomplete sentences are an occasional consequence of this system due to software limitations, ambient noise, and hardware issues. Any formal questions or concerns about the content, text, or information contained within the body of this dictation should be directly addressed to the physician for clarification. Consults Time Called: [id number] Consulting Physician: Dr. Winchester Returned Call: [phone] Discussed the patient's recent history, worsening symptoms despite her oral antibiotics, laboratory testing showed significant hyperglycemia and acute kidney injury, and CT findings. Impression Primary Impression: Pneumonitis Additional Impressions: Degenerative disc disease, cervical Acute kidney injury Scribe Attestation The scribe's documentation has been prepared under my direction and personally reviewed by me in its entirety. I confirm that the note above accurately reflects all work, treatment, procedures, and medical decision making performed by me. Departure Information Dispostion Being Evaluated By Hospitalist Referrals No Doctor, Assigned (PCP) Patient Instructions My [facility] Problem Qualifiers
[2016-08-16] MEDS ORDERED: ALUMINUM/MAGNESIUM/SIMETH (MAALOX MAX) 30 ML UDC PO PRN (01:45)
[2016-08-16] MEDS ORDERED: ONDANSETRON INJ 2 MG/ML 2 ML VIAL IV PRN (01:45)
[2016-08-16] MEDS ORDERED: SODIUM CHLORIDE 0.9% 1000ML 1,000 ML IV SCH (01:45)
[2016-08-16] MEDS ORDERED: ACETAMINOPHEN 325 MG TAB PO PRN (01:45)
[2016-08-16] MEDS ORDERED: MAGNESIUM HYDROXIDE SUSP 30 ML UDC PO PRN (01:45)
[2016-08-16] MEDS: ALBUT/IPRATROP 3MG/0.5MG NEB 3 ML VIAL INH SCH ×4 (03:32→19:26)
[2016-08-16] MEDS ORDERED: CLINDAMYCIN IV 600 MG in DEXTROSE 5% ADD-VANTAGE 50ML 50 ML IV SCH (04:00)
[2016-08-16] MEDS ORDERED: CLINDAMYCIN CONSULT ACTIVE PRN ×2 (04:15)
[2016-08-16] MEDS ORDERED: Azithromycin: PHARMACY CONSULT IN PROGRESS PRN (04:15)
[2016-08-16] MEDS: AZITHROMYCIN IV 500 MG in DEXTROSE 5% 250ML 250 ML IV SCH (05:56)
[2016-08-16] MEDS: LEVOTHYROXINE 50 MCG TAB PO SCH (06:01)
[2016-08-16] MEDS: HEPARIN SOD 5000 UNIT/0.5 ML CARP SQ SCH ×3 (06:01→21:03)
[2016-08-16] MEDS: FLUCONAZOLE 100 MG TAB PO SCH (07:48)
[2016-08-16] MEDS: LORATADINE 10 MG TAB PO SCH (07:48)
[2016-08-16] MEDS: DILTIAZEM HCL 120 MG ER CAP PO SCH (07:48)
[2016-08-16] MEDS: LACTOBACILLUS ACIDOPHILUS (FLORANEX) TAB PO SCH ×3 (07:48→16:03)
[2016-08-16] MEDS: METOPROLOL TARTRATE 100 MG TAB PO SCH ×2 (07:49→21:00)
[2016-08-16] MEDS: ESCITALOPRAM OXALATE 10 MG TAB PO SCH (07:49)
[2016-08-16] MEDS: CYANOCOBALAMIN 500 MCG TAB (VIT B-12) PO SCH (07:49)
[2016-08-16] MEDS: LANSOPRAZOLE SOLUTAB 30 MG PO SCH (07:49)
[2016-08-16] MEDS: CHOLECALCIFEROL 1000 INTER.UNIT TAB PO SCH (07:49)
[2016-08-16] MEDS: ASPIRIN 81 MG ECTAB PO SCH (07:49)
[2016-08-16] MEDS: MAGNESIUM OXIDE 400 MG TAB PO SCH (07:49)
[2016-08-16] MEDS: INSULIN ASPART 100 UNITS/ML 3 ML PEN SC SCH ×4 (08:00→21:04)
[2016-08-16] MEDS: DOCUSATE SODIUM 100 MG CAP PO PRN (08:05)
[2016-08-16] MEDS: POLYETHYLENE (MIRALAX) 17 GM PACK PO PRN (08:05)
[2016-08-16] MEDS ORDERED: INSULIN DETEMIR FLEXPEN/FLEX TOUCH 100 UNITS/ML 3ML SC SCH (09:00)
[2016-08-16 09:50] LABS: BUN/CREATININE RATIO 14.7 (10-20); CREATININE 1.5 mg/dl (0.60-1.20); POTASSIUM 4.1 mmol/L (3.5-5.1)
[2016-08-16 10:03] LABS: CALCIUM 8.6 mg/dl (8.5-10.1)
[2016-08-16] MEDS ORDERED: BUDESONIDE/FORMOTEROL FUMARATE 160/4.5 60 PUFFS/INHALER INH ONE (11:35)
[2016-08-16] MEDS ORDERED: GUAIFENESIN 600 MG TABCR PO ONE (11:35)
[2016-08-16] MEDS ORDERED: BENZONATATE 100MG CAP PO PRN (11:45)
--- NOTE | 2016-08-16 12:35 | Pulmonary Consultation ---
History General Date of Service: August 16, 2016. Stated Complaint: COUGH HPI The patient is a 86 year old female who presents to [facility] with complaints of COUGH. The patient's primary care provider is Deion Downs M.D.. 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 Per patient it is associated with low grade fever, around 100, neck/shoulder pain worsened by cough, worse when laying flat. She has been having similar symptoms for about 1.5 years, and she never really improved completely, would get better with courses of Abx, but symptoms would frequently reoccur. She was hospitalized at least 7 times for similar symptoms, had extensive work-up, including bronchoscopy on 02/08/16, which was essentially normal. 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 Today she feels better Of note, she moved to an assisted living facility in January 2016. 06/20/16-barium swallow fluoroscopy - No aspiration, mild dysmotility 02/08/16 - Bronchoscopy with BAL of RML 11/16/15 - Pharyngeal penetration with thin liquids, esophageal dysmotility 11/11/15 - CT Chest: There are foci of bibasilar groundglass change, with more confluent airspace opacities seen in the upper lobes. The appearance is nonspecific, and this could represent an infectious or inflammatory pneumonitis versus mild congestive change. Clinical correlation will be required. Numerous 2-4 mm pulmonary nodules have not significantly changed from previous. Primary function tests: 10/21/2013 FEV1/FVC: 63 FEV1: 1.20/73% FVC: 1.90/78% T.87/61% FVC: 1.92/79% RV: 0.95/46% DLCO: 79% DLCO/VA: 160% Historian: patient Review of Systems Constitutional: reports: as stated in HPI, fever ENT: reports: sore throat Cardiovascular: reports: edema (left > right), denies: chest pain Respiratory: reports: cough, orthopnea, shortness of breath, sputum production , denies: hemoptysis Gastrointestinal: denies: abdominal pain, nausea, vomiting Musculoskeletal: reports: neck pain, other (shoulder pains) Neurologic: reports: no symptoms Endocrine: hair changes Allergic / Immunologic: denies: eczema Past Medical History Past Medical History: H/o recurrent bronchitis/bronchiectasis Past Medical History: A Fib, coronary artery disease, diabetes, other Past Surgical History: coronary bypass surgery, pacemaker Family History Omitted secondary to age Social History Hx Tobacco Use In Past Year?: No Smoking Status: Never Smoker Marital status: Housing status: lives alone Occupational Status: retired Allergies Coded Allergies: Fenofibrate (Verified Allergy, Intermediate, rash, 08/15/16) Amoxicillin (Verified Allergy, Unknown, UNKNOWN, 08/15/16) Fexofenadine (Verified Allergy, Unknown, UNKNOWN, 08/15/16) Irbesartan (Verified Allergy, Unknown, UNKNOWN, 08/15/16) Niacin (Verified Allergy, Unknown, RASH, 08/15/16) Penicillins (Verified Allergy, Unknown, UNKNOWN, 08/15/16) Sulfa Antibiotics (Verified Allergy, Unknown, UNKNOWN, 08/15/16) Tomato (Verified Allergy, Unknown, GI SYMPTOMS, 08/15/16) Flumazenil (Unverified Adverse Reaction, Intermediate, DELIRIUM, 08/15/16) anxious, increased heart rate, increased blood pressure Current Medications Reported Home Medications Medications Dose Route/Sig Max Daily Dose Days Date Category Dose Instructions Hydroxyzine HCl 25 Mg Tab 1 Tab PO HS 08/15/16 Reported Atorvastatin Calcium (Atorvastatin) 10 Mg Tab 1 Tab PO QPM 08/15/16 Reported Levofloxacin 250 Mg Tab 1 Tab PO DAILY 08/15/16 Reported Levemir Flextouch (Insulin Detemir) 100 Unit/Ml Inj 30 Units SC QAM 08/15/16 Reported Mometasone Furoate (Mometasone Furoate (Nasal)) 50 Mcg/Act Spr 2 Sprays ANTOINE DAILY 03/30/16 Reported Aspirin Ec (Aspirin) 81 Mg Tab 81 Mg PO DAILY 03/30/16 Reported Diflucan (Fluconazole) 200 Mg Tab 200 Mg PO BID 03/30/16 Reported Tessalon Perles (Benzonatate) 100 Mg Cap 100 Mg PO TID PRN 02/06/16 Reported Lexapro (Escitalopram Oxalate) 10 Mg Tab 5 Mg PO DAILY 02/06/16 Reported Nitrostat (Nitroglycerin) 0.4 Mg Sub 0.4 Mg UT UD PRN 12/30/[address] ONE TABLET UNDER THE TONGUE EVERY 5 MINUTES FOR UP TO 3 DOSES IF NEEDED FOR CHEST PAIN Cranberry (Cranberry (Vaccinium Macrocarp) 500 Mg Cap 1,000 Mg PO BID 12/30/15 Reported Lopressor (Metoprolol Tartrate) 100 Mg Tab 100 Mg PO BID 12/30/15 Reported Levothyroxine Sodium 50 Mcg Tab 50 Mcg PO QAM 12/30/15 Reported Furosemide 40 Mg Tab 40 Mg PO QAM 12/30/15 Reported Docusate Sodium 100 Mg Cap 100 Mg PO BID PRN 12/30/15 Reported Diltiazem Hcl (Diltiazem Hcl Extended Release) 240 Mg Cap 240 Mg PO QAM 12/30/15 Reported Albuterol Sulfate (Albuterol Sulf) 2.5 Mg/0.5 Ml Nebu 2.5 Mg NEB Q4H 12/30/15 Reported WHILE AWAKE Prevacid (Lansoprazole) 30 Mg Capcr 30 Mg PO DAILY 11/10/15 Reported Vitamin D3 (Cholecalciferol) 1,000 Unit Cap 1,000 Inter.unit PO QAM 05/20/15 Reported Mag-Ox (Magnesium Oxide) 400 Mg Tab 400 Mg PO QAM 05/10/14 Reported Claritin (Loratadine) 10 Mg Cap 10 Mg PO QAM 09/09/13 Reported Vitamin B12 (Cyanocobalamin) 1,000 Mcg Tab 1,000 Mcg PO QAM 09/09/13 Reported Physical Physical Exam Vital Signs: Date Time Temp Pulse Resp B/P Pulse Ox O2 Delivery O2 Flow Rate FiO2 08/16/16 08:04 36.9 61 16 129/44 100 Room Air 08/16/16 08:00 Nasal Cannula 2.0 08/16/16 07:09 60 18 98 Nasal Cannula 2.0 08/16/16 03:40 37.0 59 18 149/64 92 Nasal Cannula 2.0 08/16/16 03:23 68 18 94 Nasal Cannula 2.0 08/16/16 02:32 83 18 141/73 93 08/16/16 01:30 59 26 91 Room Air 08/16/16 01:00 60 18 95 Room Air 08/16/16 00:31 147/61 08/16/16 00:30 60 32 93 Room Air 08/16/16 00:08 60 08/16/16 00:02 160/58 08/16/16 00:00 61 29 91 Room Air 08/15/16 23:31 109/97 08/15/16 23:30 60 20 91 Room Air 08/15/16 23:01 167/55 08/15/16 23:00 60 31 91 Room Air 08/15/16 21:35 60 24 94 08/15/16 21:32 143/54 08/15/16 21:05 61 22 94 08/15/16 21:01 119/66 08/15/16 20:56 60 20 174/68 94 Room Air 08/15/16 20:43 174/68 08/15/16 20:35 60 22 95 08/15/16 20:19 60 08/15/16 20:10 94 Room Air 08/15/16 20:10 94 Room Air 08/15/16 19:38 36.9 60 18 147/62 93 Room Air General Appearance: WELL-APPEARING, NO APPARENT DISTRESS, other (On room air) Eyes: NO DISCHARGE ENT: NORMAL THROAT EXAM, other (No thrush) Neck: NO TENDERNESS, TRACHEA MIDLINE, SUPPLE Respiratory: CLEAR TO AUSCULTATION, CLEAR TO PERCUSSION, NO RESPIRATORY DISTRESS, NO TENDERNESS, other (no wheezing) Cardiovasular: REGULAR RATE/RHYTHM, NORMAL S1S2 Abdomen: NON TENDER, NO GUARDING Back: NORMAL INSPECTION, NO CVA TENDERNESS Upper Extremities: NO EDEMA Lower Extremities: edema (left>right) Neuro: ALERT, ORIENTED x 3, NORMAL MOTOR EXAM Diagnostics Labs Results Past 24 Hours Test 08/15/16 20:25 08/15/16 20:40 08/15/16 20:49 08/16/16 07:55 Range/Units White Blood Count 10.84 4.8-10.8 K/uL Red Blood Count 3.89 4.2-5.4 M/uL Hemoglobin 12.1 12.0-16.0 g/dL Hematocrit 35.3 37-47 % Mean Corpuscular Volume 90.7 80-100 fL Mean Corpuscular Hemoglobin 31.1 25-34 pg Mean Corpuscular Hemoglobin Concent 34.3 32-36 g/dl Platelet Count 255 130-400 K/uL Mean Platelet Volume 8.7 7.4-10.4 fL Neutrophils (%) (Auto) 70.0 % Lymphocytes (%) (Auto) 17.5 % Monocytes (%) (Auto) 10.1 % Eosinophils (%) (Auto) 1.8 % Basophils (%) (Auto) 0.2 % Neutrophils # (Auto) 7.58 1.4-6.5 K/uL Lymphocytes # (Auto) 1.90 1.2-3.4 K/uL Monocytes # (Auto) 1.10 0.11-0.59 K/uL Eosinophils # (Auto) 0.20 0-0.5 K/uL Basophils # (Auto) 0.02 0-0.2 K/uL RDW Standard Deviation 44.1 36.4-46.3 fL RDW Coefficient of Variation 13.4 11.5-14.5 % Immature Granulocyte % (Auto) 0.4 % Immature Granulocyte # (Auto) 0.04 0.00-0.02 K/uL Prothrombin Time 10.4 9.0-12.0 SECONDS Prothromb Time International Ratio 1.0 0.9-1.1 Activated Partial Thromboplast Time 31.0 21.0-31.0 SECONDS Partial Thromboplastin Ratio 1.2 Sodium Level 131 136-145 mmol/L Potassium Level 3.9 3.5-5.1 mmol/L Chloride Level 95 98-107 mmol/L Carbon Dioxide Level 29 21-32 mmol/L Anion Gap 7.0 3-11 mmol/L Blood Urea Nitrogen 28 7-18 mg/dl Creatinine 1.70 0.60-1.20 mg/dl Est Creatinine Clear Calc Drug Dose 19.3 ml/min Estimated GFR () 30.9 Estimated GFR (Non- 26.6 BUN/Creatinine Ratio 16.3 10-20 Random Glucose 239 70-99 mg/dl Calcium Level 8.6 8.5-10.1 mg/dl Magnesium Level 2.1 1.8-2.4 mg/dl Total Bilirubin 0.5 0.2-1 mg/dl Direct Bilirubin < 0.1 0-0.2 mg/dl Aspartate Amino Transf (AST/SGOT) 17 15-37 U/L Alanine Aminotransferase (ALT/SGPT) 16 12-78 U/L Alkaline Phosphatase 95 45-117 U/L Total Creatine Kinase 47 26-192 U/L Creatine Kinase MB 2.4 0.5-3.6 ng/ml Creatine Kinase MB Ratio 5.1 0-3.0 Troponin I < 0.015 0-0.045 ng/ml Total Protein 6.6 6.4-8.2 gm/dl Albumin 2.2 3.4-5.0 gm/dl Lipase 104 73-393 U/L Thyroid Stimulating Hormone (TSH) 3.170 0.300-4.500 uIu/ml Urine Color YELLOW Urine Appearance CLEAR CLEAR Urine pH 6.0 4.5-7.5 Urine Specific [place] 1.018 1.000-1.030 Urine Protein 3+ NEG Urine Glucose (UA) 1+ NEG Urine Ketones NEG NEG Urine Occult Blood NEG NEG Urine Nitrite NEG NEG Urine Bilirubin NEG NEG Urine Urobilinogen NEG NEG Urine Leukocyte Esterase SMALL NEG Urine WBC (Auto) 10-30 0-5 /hpf Urine RBC (Auto) 5-10 0-4 /hpf Urine Hyaline Casts (Auto) 1-5 0-5 /lpf Urine Epithelial Cells (Auto) 10-20 0-5 /lpf Urine Bacteria (Auto) NEG NEG Bedside Lactic Acid Venous 1.48 0.90-1.70 mmol/L Bedside Glucose 189 70-90 mg/dl Test 08/16/16 09:07 Range/Units Sodium Level 133 136-145 mmol/L Potassium Level 4.1 3.5-5.1 mmol/L Chloride Level 99 98-107 mmol/L Carbon Dioxide Level 26 21-32 mmol/L Anion Gap 8.0 3-11 mmol/L Blood Urea Nitrogen 22 7-18 mg/dl Creatinine 1.50 0.60-1.20 mg/dl Est Creatinine Clear Calc Drug Dose 21.8 ml/min Estimated GFR () 35.9 Estimated GFR (Non- 31.0 BUN/Creatinine Ratio 14.7 10-20 Random Glucose 208 70-99 mg/dl Calcium Level 8.6 8.5-10.1 mg/dl Microbiology Results 08/15/16 Blood Culture, Received Pending 08/15/16 Blood Culture, Received Pending Diagnostic Radiology CT chest: 1. Mild groundglass opacities and mosaic attenuation within the lungs which favor air trapping. A mild infectious process could appear similar. No consolidation. 2. No significant change in scattered subcentimeter pulmonary nodules. 3. Stable mildly enlarged precarinal lymph node. EKG Paced rhythm @ 60 Impression Assessment and Plan 86 year old female with recurrent admissions for productive cough, shortness of breath. 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 The patient feels better today, states that she gets really sick on steroids, cannot elaborate how. Given her current level of comfort will stay with inhaled steroids only. Resume Tessalon Start Mucinex and flutter valve to help with secretion clearance Continue bronchodilators I reviewed her CT scans, may have a mild case of bronchiectasis in the RML but not very evident. Nodularity persists and is stable. She grew MAC slowly last year from sputum but not from RML BAL. I would not commit her to MAC therapy, given her advanced age, frail status, no significant lung disease on imaging, I feel the risks outweigh the benefits. Even though she is on a modified diet, and the last barium swallow is negative for aspiration, it still does not exclude chronic aspiration. Would repeat dysphagia workup, obtain speech & swallow evaluation. I don't see a benefit from Clindamycin. Continue macrolide for now. She does not appear septic, doubt she needs escalation of Abx therapy to cover HCAP DVT prophylaxis I discussed in detail with the patient, she seems to understand the situation, offered the opportunity to ask questions. Total time spent 55 minutes
--- NOTE | 2016-08-16 14:18 | Progress Note ---
Progress Note Date of Service August 16, 2016. Progress Note ID Consult Dictated #[id number] A/P: 1. MAC culture positive 12/2015 -Unclear significance of this with negative AFB bronch culture in 01/2016, sputum cultures could be colonization -Ct findings with mild disease -Discussed treatment options for MAC, 3 abx for 12 months min, she is not interested in treatment at this time -Can continue outpt pulm followup and serial imaging, if worsening, would suggest repeat bronch with AFB culture and if + can re-visit treatment discussion at that time -Agree with pulm, suspect if would be difficult for her to complete therapy with potential ADR with MAC therapy -thank you
--- NOTE | 2016-08-16 17:00 | INFECT. DISEASE CONSULTATION ---
DATE OF CONSULTATION: 08/16/2016 REQUESTING PHYSICIAN: Dr. Chambers. HISTORY OF PRESENT ILLNESS: This is an 86-year-old female who was admitted from her local assisted living facility secondary to persistent cough. She has recently been on a 10-day course of Levaquin, but has not felt significantly better. She states that she has had a productive cough with yellow sputum for anywhere between 1-2 years. She has gotten multiple short doses of antibiotics which helped initially but her cough returns when antibiotics are discontinued. She did tolerate Levaquin well. She is having no GI symptoms or diarrhea. She states she is coughing up bright yellow mucus. She denies any hemoptysis but does admit to occasional blood tinge tissues when she blew her nose. She does not chronically wear oxygen. She did have a previous workup for this cough. In December, she had 2 expectorated sputum's dated January 01 and January 04 which grew MAC, no sensitivities were performed. She subsequently underwent bronchoscopy in January 2016. However, her AFB culture was negative and final. Routine cultures did grow Ethel albicans and she was treated with a course of Diflucan for suspected candidal esophagitis. She currently is on azithromycin and appears to be tolerating this well. She also had Levaquin and doxycycline in the Emergency Room. She has been afebrile since admission to the hospital. Her white blood cell count is 10.8. Her creatinine was initially elevated at 1.7 and is 1.5 today. She is eating and overall she states she feels somewhat better today. However, she complains of continued cough. She denies any chest pain. She denies any fevers or chills. She denies any nausea, vomiting or diarrhea. She also was evaluated by pulmonary medicine today and per her history and pulmonary notes, treatment for MAC was discussed and she has declined this. I did discuss this with her again in detail today and she is currently not interested in undergoing any prolonged treatments. She did have a CAT scan performed in the Emergency Room which showed mild ground-glass opacities in the lungs favoring air trapping and no consolidation was noted. PAST MEDICAL HISTORY: Significant for AFib, CHF, type 2 diabetes, GERD, chronic kidney disease. PAST SURGICAL HISTORY: Significant for pacemaker, bypass and cardiac catheterization, hysterectomy, hernia repair with mesh, cholecystectomy and appendectomy. FAMILY HISTORY: Noncontributory. SOCIAL HISTORY: She denies any history of tobacco use. She denies any alcohol or drug use. She currently is living at an assisted living facility. ALLERGIES: SHE HAS MULTIPLE ALLERGIES INCLUDING FENOFIBRATE, AMOXICILLIN, FEXOFENADINE, IRBESARTAN, NIACIN, PENICILLIN, SULFA, TOMATO AND FLUMAZENIL. CURRENT MEDICATIONS: Include Lipitor, Vistaril, Mucinex, Symbicort, Tessalon Perles, Ecotrin, Lexapro, Claritin, magnesium, Lopressor, vitamin D, vitamin B12, diltiazem, Prevacid, Levemir, DuoNebs, Diflucan, probiotics, Synthroid, azithromycin, subQ heparin, Tylenol, Milk of magnesia, MiraLax, Colace and Zofran. PHYSICAL EXAMINATION: VITAL SIGNS: She is afebrile, pulse 61, respiratory rate is 16, blood pressure is 129/44, and oxygen saturation is 100% on room air. GENERAL: She is awake, alert and oriented x3. She is ambulating in the room on room air. On my examination, she has no dyspnea on exertion. HEENT: Mucous membranes are moist. HEART: Regular. LUNGS: Clear bilaterally. ABDOMEN: Soft. There is no edema. SKIN: Without rash. LABORATORY AND IMAGING STUDIES: CBC today reveals a white count 10.8, hemoglobin 12.1, platelets are 255. Chemistry panel reveals sodium of 133, potassium 4.1, chloride 99, bicarbonate 26, BUN 22, creatinine 1.5, glucose is 134. Urinalysis has 10-30 WBCs with no bacteria. Blood cultures are pending. CT of the chest is as reviewed previously. A chest x-ray did not show any acute disease. She also had a CAT scan of the cervical spine which showed no fracture. ASSESSMENT AND PLAN: Cough; there is no consolidation to suggest bacterial pneumonia at this time. She does have sputum cultures from December that are growing out Mycobacterium avium complex which certainly could be colonization. It is less likely that this would be a pathogen as it did not show upon a dedicated AFB bronchoscopy culture 1 month later. She did not have any treatment that she can recall in the interim. Additionally, she does have a history of chronic kidney disease. We did discuss medications for Mycobacterium avium complex. She understands that she would need to be on 3 separate antibiotics which have significant gastrointestinal side effects potentially as well as potential for liver toxicity as well as visual toxicity. She states at this time she is not interested in undergoing any additional antibiotic therapy to treat for Mycobacterium avium complex. If her symptoms continue and this is re-entertained, I would recommend a repeat bronchoscopy with dedicated AFB cultures to make a definitive diagnosis. I do agree with pulmonary on holding medications at this time. Thank you for this consultation. ARIELLE
[2016-08-16] MEDS: GUAIFENESIN 600 MG TABCR PO SCH (20:59)
[2016-08-16] MEDS ORDERED: hydrOXYzine HCL 25 MG TAB PO SCH (21:00)
[2016-08-16] MEDS ORDERED: ATORVASTATIN 10 MG TAB PO SCH (21:00)
[2016-08-16] MEDS: BUDESONIDE/FORMOTEROL FUMARATE 160/4.5 60 PUFFS/INHALER INH SCH (21:00)
[2016-08-17] VITALS (7 sets, daily range): BP systolic 139–144; BP diastolic 58–74; PULSE 60–68; TEMP 37–37.4; O2SAT 95–97; Ht 160 cm; Wt 62.0 kg
--- NOTE | 2016-08-17 00:08 | Progress Note ---
Progress Note Date of Service August 16, 2016. Progress Note Pt admitted after midnight. Bridge note: Pt seen and examined, chart reviewed. Discussed case with Pulm. Grew out MAC from 2 sputum cxs in Dec 2015 and no treatment since then except is being treated for many months with Fluconazole for Ethel PNA. Pt presented with persistent cough, low grade temp at home, not feeling well. Has been coughing off and on for months with sputum production. Feeling better now since admission and on azithro. Renal failure has improved. ID and Pulm saw pt and offered lengthy 3 drug treatment for MAC but given risk of SEs of meds, she does not want to proceed with the treatment. Continue azithro for 5 day course, musinex, Symbicort. 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 She follows with Nephrology as outpt. For video swallow tomorrow Vitals reviewed NAD, very pleasant, AAOx3 RRR no mgr Lungs with decreased BS and some crackles at bases Abd soft NT ND +BS Ext trace pitting edema
[2016-08-17] MEDS: ALBUT/IPRATROP 3MG/0.5MG NEB 3 ML VIAL INH SCH ×2 (02:21→07:32)
[2016-08-17] MEDS: LEVOTHYROXINE 50 MCG TAB PO SCH (06:03)
[2016-08-17] MEDS: AZITHROMYCIN IV 500 MG in DEXTROSE 5% 250ML 250 ML IV SCH (06:03)
[2016-08-17] MEDS: HEPARIN SOD 5000 UNIT/0.5 ML CARP SQ SCH ×2 (06:04→14:00)
[2016-08-17] MEDS: INSULIN ASPART 100 UNITS/ML 3 ML PEN SC SCH ×3 (06:30→17:33)
--- NOTE | 2016-08-17 06:41 | Clinical Documentation Query ---
CLINICAL DOCUMENTATION QUERY 86 year old female who is being treated for MAC. H&P notes a hx of CHF. The medical record documentation is now expected to include definitive and explicit description of the patient's heart failure; vague terms such as "heart failure," ventricular dysfunction," and "CHF" may not fully capture the physician's intended level of severity. In your clinical opinion is this patient being managed for: ( x ) Chronic systolic/reduced EF heart failure ( ) Other explanation of clinical findings (Please Explain) ( ) Unable to determine (Please Define) ( ) Need to Discuss ( ) Not Agree The medical record reflects the following clinical findings, treatment, and risk factors. Clinical Indicators: Hx of CHF per H&P.(12/28 Echo showed EF 45% with mild LV hypokinesis) Treatment: telemetry, I/O's Risk Factors: Age, on PO Lasix at home, CAD, HTN, and CKD III. Please clarify and document your clinical opinion in the progress notes and discharge summary. Terms such as "probable", "suspected", "likely", "questionable", "possible", or "still to be ruled out" are acceptable. IF IN AGREEMENT, YOU MUST DOCUMENT ABOVE DIAGNOSTIC STATEMENT IN DAILY PROGRESS NOTES AND DISCHARGE SUMMARY. This document is not part of the patient's record. Thank You, Ryne Patel RN [phone]
[2016-08-17 06:53] LABS: BASO % 0.2 %; BASO ABS # 0.02 K/uL (0-0.2); COMPLETE YES; EOS % 3.7 %; HEMATOCRIT 37.9 % (37-47); IG% 0.3 %; LYMPH % 19.4 %; LYMPH ABS # 1.82 K/uL (1.2-3.4); MEAN CELL VOLUME 93.1 fL (80-100); MEAN CORPUSCULAR HEMOGLOBIN 30.7 pg (25-34); MEAN PLATELET VOLUME 8.7 fL (7.4-10.4); MONO % 8.7 %; NEUT % 67.7 %; PLATELET COUNT 257 K/uL (130-400); RED BLOOD COUNT 4.07 M/uL (4.2-5.4)
[2016-08-17 07:27] LABS: BUN/CREATININE RATIO 16.1 (10-20); CALCIUM 8.8 mg/dl (8.5-10.1); CREATININE 1.3 mg/dl (0.60-1.20); MAGNESIUM 2.1 mg/dl (1.8-2.4); POTASSIUM 4.4 mmol/L (3.5-5.1)
[2016-08-17] MEDS ORDERED: INSULIN DETEMIR FLEXPEN/FLEX TOUCH 100 UNITS/ML 3ML SC SCH (09:00)
[2016-08-17] MEDS ORDERED: NURSING VERBAL MED ORDER ONE ×2 (09:15→17:30)
[2016-08-17] MEDS: BUDESONIDE/FORMOTEROL FUMARATE 160/4.5 60 PUFFS/INHALER INH SCH (09:22)
[2016-08-17] MEDS: MAGNESIUM OXIDE 400 MG TAB PO SCH (09:22)
[2016-08-17] MEDS: CHOLECALCIFEROL 1000 INTER.UNIT TAB PO SCH (09:22)
[2016-08-17] MEDS: LORATADINE 10 MG TAB PO SCH (09:22)
[2016-08-17] MEDS: CYANOCOBALAMIN 500 MCG TAB (VIT B-12) PO SCH (09:23)
[2016-08-17] MEDS: ESCITALOPRAM OXALATE 10 MG TAB PO SCH (09:24)
[2016-08-17] MEDS: LACTOBACILLUS ACIDOPHILUS (FLORANEX) TAB PO SCH ×3 (09:24→17:32)
[2016-08-17] MEDS: DILTIAZEM HCL 120 MG ER CAP PO SCH (09:24)
[2016-08-17] MEDS: FLUCONAZOLE 100 MG TAB PO SCH (09:25)
[2016-08-17] MEDS: ASPIRIN 81 MG ECTAB PO SCH (09:25)
[2016-08-17] MEDS: LANSOPRAZOLE SOLUTAB 30 MG PO SCH (09:26)
[2016-08-17] MEDS: METOPROLOL TARTRATE 100 MG TAB PO SCH (09:26)
[2016-08-17] MEDS: GUAIFENESIN 600 MG TABCR PO SCH (09:26)
[2016-08-17] MEDS ORDERED: MICONAZOLE NITRATE POWDER 43 GM EXT PRN (09:30)
[2016-08-17] MEDS: POLYETHYLENE (MIRALAX) 17 GM PACK PO PRN (09:36)
[2016-08-17] MEDS: DOCUSATE SODIUM 100 MG CAP PO PRN (09:36)
--- NOTE | 2016-08-17 12:36 | DIAGNOSTIC IMAGING REPORT ---
VIDEO SWALLOW HISTORY: r/o silent aspiration; please schedule per order TECHNIQUE: Video fluoroscopic evaluation of swallowing was performed in the AP and lateral projections by the speech pathology staff. The patient is fed nectar-thick and thin liquid barium, a barium coated wafer, and barium pudding. FLUOROSCOPY TIME: 2.5 minutes. A cine loop was submitted.. COMPARISON STUDY: None. FINDINGS: There is normal hyoid excursion and epiglottic deflection. No significant penetration or aspiration identified. Swallowing function is within normal limits. Mild esophageal dysmotility. IMPRESSION: 1. No aspiration identified. 2. Please see the speech pathologist report for detailed findings and recommendations. Electronically signed by: Benoit Rutherford M.D. 08/17/2016 12:35 PM Dictated Date/Time: 08/17/2016 12:28 PM
--- NOTE | 2016-08-17 14:34 | Pulmonology Progress Note ---
Pulmonary Progress Note Date of Service August 17, 2016. Attending Dr. Friedman Subjective Feels better today, on room air. Less cough Afebrile Video-swallow eval did not show aspiration Objective General Appearance: WELL-APPEARING, NO APPARENT DISTRESS, other (On room air) Eyes: NO DISCHARGE ENT: NORMAL THROAT EXAM, other (No thrush) Neck: NO TENDERNESS, TRACHEA MIDLINE, SUPPLE Respiratory: CLEAR TO AUSCULTATION, CLEAR TO PERCUSSION, NO RESPIRATORY DISTRESS, NO TENDERNESS, other (no wheezing) Cardiovasular: REGULAR RATE/RHYTHM, NORMAL S1S2 Abdomen: NON TENDER, NO GUARDING Back: NORMAL INSPECTION, NO CVA TENDERNESS Upper Extremities: NO EDEMA Lower Extremities: edema (left>right) Neuro: ALERT, ORIENTED x 3, NORMAL MOTOR EXAM Assessment & Plan 86 year old female with recurrent admissions for productive cough, shortness of breath. 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 Improving without systemic steroids. Continue Mucinex, use flutter valve ID consult noted and appreciated. Again, there is no evidence of aspiration on the video swallow test. Repeated sputum for AFB. However, no treatment for MAC at this time, it often is a contaminant, lacks significant radiographic disease. It would be significant burden and likely harmful in her situation. Continue macrolide since she is improving. From a pulmonary perspective, she may be discharged home. Data Medications: Current Inpatient Medications Medications (Trade) Dose Ordered Sig/Leslee Route Start Time Stop Time Status Last Admin Dose Admin Aspirin (Ecotrin Tab) 81 mg DAILY PO 08/16/16 09:00 09/15/16 08:59 08/17/16 09:25 81 MG Atorvastatin Calcium (Lipitor Tab) 10 mg QPM PO 08/16/16 21:00 09/15/16 20:59 08/16/16 20:59 10 MG Docusate Sodium (coLACE CAP) 100 mg BID PRN PO 08/16/16 00:30 09/15/16 00:29 08/17/16 09:36 100 MG Escitalopram Oxalate (Lexapro Tab) 5 mg DAILY PO 08/16/16 09:00 09/15/16 08:59 08/17/16 09:24 5 MG Hydroxyzine HCl (Vistaril Tab) 25 mg HS PO 08/16/16 21:00 09/15/16 20:59 08/16/16 21:00 25 MG Levothyroxine Sodium (Synthroid Tab) 50 mcg DAILYBB PO 08/16/16 06:30 09/15/16 06:29 08/17/16 06:03 50 MCG Loratadine (Claritin Tab) 10 mg QAM PO 08/16/16 09:00 09/15/16 08:59 08/17/16 09:22 10 MG Magnesium Oxide (Mag-Ox Tab) 400 mg QAM PO 08/16/16 09:00 09/15/16 08:59 08/17/16 09:22 400 MG Metoprolol Tartrate (Lopressor Tab) 100 mg BID PO 08/16/16 09:00 09/15/16 08:59 08/17/16 09:26 100 MG Cholecalciferol (Vitamin D Tab) 1,000 inter.unit QAM PO 08/16/16 09:00 09/15/16 08:59 08/17/16 09:22 1,000 INTER.UNIT Cyanocobalamin (Vitamin B-12 Tab) 1,000 mcg QAM PO 08/16/16 09:00 09/15/16 08:59 08/17/16 09:23 1,000 MCG Diltiazem HCl (Dilacor Xr Cap) 240 mg QAM PO 08/16/16 09:00 09/15/16 08:59 08/17/16 09:24 240 MG Lansoprazole (Prevacid Solutab) 30 mg DAILY PO 08/16/16 09:00 09/15/16 08:59 08/17/16 09:26 30 MG Miscellaneous Information (Order Awaiting Action) 1 ea QS N/A 08/16/16 08:00 09/15/16 07:59 Lactobacillus Acidophilus 4 tab 4 tab TIDM PO 08/16/16 08:00 09/15/16 07:59 08/17/16 12:54 4 TAB Azithromycin/ Dextrose (Zithromax IV/D5 250ml) 255 ml @ 125 mls/hr Q24H IV 08/16/16 06:00 08/23/16 05:59 08/17/16 06:03 125 MLS/HR Albuterol/ Ipratropium (Duoneb) 3 ml Q6R INH 08/16/16 09:00 09/15/16 08:59 08/17/16 07:32 3 ML Fluconazole (Diflucan Tab) 200 mg QAM PO 08/16/16 09:00 08/29/16 09:01 08/17/16 09:25 200 MG Insulin Aspart (novoLOG ASPART) SLIDING SCALE G... ACHS SC 08/16/16 06:30 09/15/16 06:59 08/17/16 12:53 2 UNITS Heparin Sodium (Porcine) (Heparin Sq 5000 Unit/0.5ml) 5,000 unit Q8H SQ 08/16/16 06:00 09/15/16 05:59 08/17/16 06:04 5,000 UNIT Acetaminophen (Tylenol Tab) 650 mg Q4H PRN PO 08/16/16 01:45 09/15/16 01:44 Al Hydrox/Mg Hydrox/Simethicone (Maalox Max Susp) 15 ml Q4H PRN PO 08/16/16 01:45 09/15/16 01:44 Magnesium Hydroxide (Milk Of Magnesia Susp) 30 ml Q6H PRN PO 08/16/16 01:45 09/15/16 01:44 Polyethylene (Miralax Powder Packet) 17 gm DAILY PRN PO 08/16/16 01:45 09/15/16 01:44 08/17/16 09:36 17 GM Ondansetron HCl (Zofran Inj) 4 mg Q6H PRN IV 08/16/16 01:45 09/15/16 01:44 08/16/16 16:51 4 MG Guaifenesin (Mucinex Contr Rel Tab) 600 mg Q12 PO 08/16/16 21:00 09/15/16 20:59 08/17/16 09:26 600 MG Benzonatate (Tessalon Perles Cap) 100 mg Q8H PRN PO 08/16/16 11:45 09/15/16 11:44 08/16/16 21:04 100 MG Budesonide/ Formoterol Fumarate (Symbicort 160/ 4.5 Inh) 2 puffs BID INH 08/16/16 21:00 09/15/16 20:59 08/17/16 09:22 2 PUFFS Insulin Detemir (Levemir Flexpen/ FlexTouch) 25 unit QAM SC 08/17/16 09:00 09/16/16 08:59 08/17/16 09:21 25 UNIT Miconazole Nitrate (Desenex Powder) 1 appln PRN PRN EXT 08/17/16 09:30 09/16/16 09:29 I & O: 24-Hour Column 08/17/16 08:00 Intake Total 1110 ml Output Total 600 ml Balance 510 ml Vital Signs: Date Time Temp Pulse Resp B/P Pulse Ox O2 Delivery O2 Flow Rate FiO2 08/17/16 08:00 95 Nasal Cannula 08/17/16 07:32 68 18 95 Nasal Cannula 2.0 08/17/16 07:27 37.0 60 18 144/74 95 Nasal Cannula 2.0 08/17/16 02:21 68 18 95 Nasal Cannula 2.0 08/17/16 00:00 Nasal Cannula 2.0 08/16/16 22:45 37.1 60 20 154/73 95 Nasal Cannula 2.0 08/16/16 20:57 71 151/62 93 Room Air 08/16/16 19:26 68 18 96 Nasal Cannula 2.0 08/16/16 16:00 91 Nasal Cannula 2.0 08/16/16 14:59 36.4 60 16 170/64 91 Nasal Cannula 2.0 08/16/16 14:32 59 18 93 Nasal Cannula 2.0 Laboratory Results: Last 24 Hours Test 08/16/16 15:16 08/16/16 15:34 08/16/16 17:01 08/16/16 20:06 Bedside Glucose 67 mg/dl 86 mg/dl 176 mg/dl 238 mg/dl Test 08/17/16 03:04 08/17/16 06:27 08/17/16 07:22 08/17/16 11:27 Bedside Glucose 165 mg/dl 136 mg/dl 233 mg/dl White Blood Count 9.40 K/uL Red Blood Count 4.07 M/uL Hemoglobin 12.5 g/dL Hematocrit 37.9 % Mean Corpuscular Volume 93.1 fL Mean Corpuscular Hemoglobin 30.7 pg Mean Corpuscular Hemoglobin Concent 33.0 g/dl Platelet Count 257 K/uL Mean Platelet Volume 8.7 fL Neutrophils (%) (Auto) 67.7 % Lymphocytes (%) (Auto) 19.4 % Monocytes (%) (Auto) 8.7 % Eosinophils (%) (Auto) 3.7 % Basophils (%) (Auto) 0.2 % Neutrophils # (Auto) 6.36 K/uL Lymphocytes # (Auto) 1.82 K/uL Monocytes # (Auto) 0.82 K/uL Eosinophils # (Auto) 0.35 K/uL Basophils # (Auto) 0.02 K/uL RDW Standard Deviation 46.5 fL RDW Coefficient of Variation 13.6 % Immature Granulocyte % (Auto) 0.3 % Immature Granulocyte # (Auto) 0.03 K/uL Sodium Level 139 mmol/L Potassium Level 4.4 mmol/L Chloride Level 104 mmol/L Carbon Dioxide Level 29 mmol/L Anion Gap 6.0 mmol/L Blood Urea Nitrogen 21 mg/dl Creatinine 1.30 mg/dl Est Creatinine Clear Calc Drug Dose 25.2 ml/min Estimated GFR () 42.7 Estimated GFR (Non- 36.9 BUN/Creatinine Ratio 16.1 Random Glucose 114 mg/dl Calcium Level 8.8 mg/dl Magnesium Level 2.1 mg/dl
[2016-08-17] MEDS ORDERED: AZIT-57 PO (17:32)
[2016-08-17] MEDS ORDERED: GFNSR600 PO (17:32)
[2016-08-17] MEDS ORDERED: SYMIN INH (17:32)
[2016-08-17] MEDS ORDERED: INSU3INJ3 SC (17:32)
[2016-08-17] MEDS ORDERED: MCTP EXT (17:32)
--- NOTE | 2016-08-17 17:43 | Discharge Instructions ---
Discharge Instructions Date of Service August 17, 2016. Admission Reason for Admission: COUGH Discharge Discharge Diagnosis / Problem: Acute on chronic bronchiectasis/bronchiectasis Discharge Goals Goal(s): Improve disease control, Therapeutic intervention Activity Recommendations Activity Limitations: resume your previous activity Shower/Bathe: no limitations . Instructions / Follow-Up Instructions / Follow-Up You were admitted for acute bronchitis and bronchiectasis. You were treated with antibiotics and had a CT scan of your chest which shows some mucus secretions and nodules in your lungs that have been there for a long time. You were seen by Pulmonology as well who added on a new inhaler and Mucinex. Please continue the antibiotics for 10 days straight and then will likely transition to twice a week. Please continue on with your fluconazole as well for the yeast in your lungs. Please follow up with your Freight Team Associate Aneudy Muñoz within 1-2 weeks. Your insulin level was lowered a bit as your sugar dropped too low in the hospital. You had a Video Swallow test that showed some mild trouble with your esophagus moving liquids through. The Speech Therapist recommends the following: SUMMARY/RECOMMENDATIONS: This patient presents mild efraín-pharyngeal dysphagia. She also has signs and symptoms of esophageal dysfunction. While she did not aspirate, she is at risk of aspiration from her esophageal dysfunction. The following is recommended: 1. Mechanical soft "slippery" diet, thin liquids. 2. STRICT Aspiration and GERD precautions. Fully upright for all p.o. intake and for 30-60 minutes after meals. HOB elevated to at least 30 degrees at all times. Stringent oral care to include brushing the surfaces of the entire mouth and tongue prior to and after meals, and before bed. 3. Safe swallow strategies: Small bites/sips. Alternate solids and liquids. Slow rate and rest breaks. Small frequent meals and indicated. Please follow up with your PCP within 1 week. Current Hospital Diet Patient's current hospital diet: AHA Diet (Heart Healthy), Diabetes Type 2 Diet Discharge Diet Recommended Diet: AHA Diet (Heart Healthy), Diabetes Type 2 Diet Diet Texture: Mechanical Soft (ground) (and slippery diet, with thin liquids) Procedures Procedures Performed: Video Swallow Pending Studies Studies pending at discharge: yes List of pending studies: Final Sputum, AFB, and Blood cultures Laboratory Results Hemoglobin A1c Test 06/20/16 08:43 Range/Units Estimated Average Glucose 180 mg/dl Hemoglobin A1c 7.9 H 4.5-5.6 % Lipid Panel Test 06/20/16 08:43 Range/Units Triglycerides Level 426 H 0-150 mg/dl Cholesterol Level 287 H 0-200 mg/dl HDL Cholesterol 46 mg/dl Cholesterol/HDL Ratio 6.2 LDL Cholesterol, Calculated mg/dl Medical Emergencies . Who to Call and When: Medical Emergencies: If at any time you feel your situation is an emergency, please call 911 immediately. . Non-Emergent Contact Non-Emergency issues call your: Primary Care Provider, Freight Team Associate Call Non-Emergent contact if: you have a fever, you have any medication questions . . "Provider Documentation" section prepared by Adelia Chambers. . VTE Core Measure Inpt VTE Proph given/why not?: Unfractionated heparin SQ
[2016-08-17] MEDS ORDERED: SODIUM CHLORIDE 0.65% NA SOLN 45 ML (OCEAN) PRN (18:00)
[2016-08-17] MEDS ORDERED: CHLORASEPTIC 1.4% SOLN 180 ML BTL MT PRN (18:00)
--- NOTE | 2016-08-25 15:55 | Discharge Summary ---
Discharge Summary Date of Service August 17, 2016. Discharge Summary Admission Date: August 16, 2016 at 01:46 Discharge Date: August 17, 2016 Discharge Disposition: Personal care Principal Diagnosis: Acute on chronic bronchiectasis/bronchitis Problems/Secondary Diagnoses: Acute kidney injury Chronic Ethel Pneumonia Pulmonary nodules History of MAC PNA Bronchiectasis CKD stage III Chronic systolic CHF Paroxysmal atrial fibrillation Pacemaker in situ CAD DMII Moderate concentric left ventricular hypertrophy. Moderate mitral regurgitation. Mild tricuspid regurgitation Procedures: VIDEO SWALLOW HISTORY: r/o silent aspiration; please schedule per order TECHNIQUE: Video fluoroscopic evaluation of swallowing was performed in the AP and lateral projections by the speech pathology staff. The patient is fed nectar-thick and thin liquid barium, a barium coated wafer, and barium pudding. FLUOROSCOPY TIME: 2.5 minutes. A cine loop was submitted.. COMPARISON STUDY: None. FINDINGS: There is normal hyoid excursion and epiglottic deflection. No significant penetration or aspiration identified. Swallowing function is within normal limits. Mild esophageal dysmotility. IMPRESSION: 1. No aspiration identified. 2. Please see the speech pathologist report for detailed findings and recommendations. CT OF THE CERVICAL SPINE WITHOUT CONTRAST CLINICAL HISTORY: Neck pain, dysphagia, productive cough. COMPARISON STUDY: No previous studies for comparison. TECHNIQUE: Helical axial images of the cervical spine were obtained without IV contrast. Sagittal and coronal reconstructions were viewed. FINDINGS: No acute cervical spine fracture is identified. The craniocervical junction is intact. There is mild to moderate multilevel degenerative disc disease and facet arthrosis. Central canal is suboptimally assessed by CT. There is no prevertebral edema. The epiglottis is normal. There is no cervical lymphadenopathy within visualized portions of the neck. The chest will be reported separately. IMPRESSION: 1. No acute cervical spine fracture or subluxation. 2. [id number] multilevel degenerative disc disease and facet arthrosis of the cervical spine. CT OF THE CHEST WITHOUT IV CONTRAST CLINICAL HISTORY: Neck pain, dysphagia, productive cough COMPARISON STUDY: Chest CT December 30, 2015 and chest radiograph performed earlier today. TECHNIQUE: Axial images of the chest were obtained without IV contrast. Images were reviewed in the axial, sagittal, and coronal planes. IV contrast was not administered for this examination. FINDINGS: A mildly enlarged precarinal lymph node remains unchanged since prior exam. There are median sternotomy wires, clips from bypass grafting and a left subclavian pacemaker. There is no pericardial effusion. The size the heart is normal. Central airways are patent. There are mild groundglass opacities with mosaic attenuation within the lungs. Numerous pulmonary nodules measuring up to 6 mm are unchanged since prior exams. There is no pneumothorax or pleural effusion. Bony thorax is unremarkable. Visualized portions of the upper abdomen demonstrate left renal atrophy. Bilateral adrenal nodularity is unchanged. IMPRESSION: 1. Mild groundglass opacities and mosaic attenuation within the lungs which favor air trapping. A mild infectious process could appear similar. No consolidation. 2. No significant change in scattered subcentimeter pulmonary nodules. 3. Stable mildly enlarged precarinal lymph node. CHEST ONE VIEW PORTABLE CLINICAL HISTORY: Weakness. COMPARISON STUDY: Chest radiograph 12/28/2016. FINDINGS: There is a dual lead left subclavian pacemaker, median sternotomy wires and clips from bypass grafting. Cardiomediastinal silhouette is normal. There is no evidence of pulmonary edema. No consolidation is identified. There is no pneumothorax or pleural effusion. IMPRESSION: No acute cardiopulmonary findings. Consultations: Infectious Disease Pulmonology Medication Reconciliation New Medications: Azithromycin (Azithromycin) 250 Mg Tab 250 MG PO DAILY for 10 Days, #10 TAB Budesonide/Formoterol Fumarate (Symbicort 160-4.5 Mcg/Act) 60 Puffs/Inhaler Aero 2 PUFFS INH BID for 30 Days, #1 INHALER Guaifenesin Ext Rel (Mucinex Ext Rel) 600 Mg Tabcr 600 MG PO Q12 for 30 Days OTC Miconazole Nitrate (Desenex Shake Powder) 43 Appln/43 Gm Powd 1 APPLN EXT PRN PRN for Affected Skin Folds for 30 Days Changed Medications: Insulin Detemir (Levemir Flextouch) 100 Unit/Ml Inj 25 UNITS SC QAM for 30 Days (Changed from: 30 UNITS) Continued Medications: Albuterol Sulf (Albuterol Sulfate) 2.5 Mg/0.5 Ml Nebu 2.5 MG NEB Q4H WHILE AWAKE Aspirin (Aspirin Ec) 81 Mg Tab 81 MG PO DAILY Atorvastatin (Atorvastatin Calcium) 10 Mg Tab 1 TAB PO QPM, #90 Benzonatate (Tessalon Perles) 100 Mg Cap 100 MG PO TID PRN for Cough, CAP Cholecalciferol (Vitamin D3) 1,000 Unit Cap 1000 INTER.UNIT PO QAM Cranberry (Vaccinium Macrocarp (Cranberry) 500 Mg Cap 1000 MG PO BID Cyanocobalamin (Vitamin B12) 1,000 Mcg Tab 1000 MCG PO QAM Diltiazem Hcl Extended Release (Diltiazem Hcl) 240 Mg Cap 240 MG PO QAM Docusate Sodium (Docusate Sodium) 100 Mg Cap 100 MG PO BID PRN for Constipation Escitalopram (Lexapro) 10 Mg Tab 5 MG PO DAILY, TAB Fluconazole (Diflucan) 200 Mg Tab 200 MG PO BID Furosemide (Furosemide) 40 Mg Tab 40 MG PO QAM Hydroxyzine HCl (Hydroxyzine HCl) 25 Mg Tab 1 TAB PO HS, #30 Lansoprazole (Prevacid) 30 Mg Capcr 30 MG PO DAILY, CAP Levothyroxine Sodium (Levothyroxine Sodium) 50 Mcg Tab 50 MCG PO QAM Loratadine (Claritin) 10 Mg Cap 10 MG PO QAM, CAP Magnesium Oxide (Mag-Ox) 400 Mg Tab 400 MG PO QAM, TAB Metoprolol Tartrate (Lopressor) (Lopressor) 100 Mg Tab 100 MG PO BID Mometasone Furoate (Nasal) (Mometasone Furoate) 50 Mcg/Act Spr 2 SPRAYS ANTOINE DAILY Nitroglycerin (Nitrostat) 0.4 Mg Sub 0.4 MG UT UD PRN for Chest Pain PLACE ONE TABLET UNDER THE TONGUE EVERY 5 MINUTES FOR UP TO 3 DOSES IF NEEDED FOR CHEST PAIN Discontinued Medications: Levofloxacin (Levofloxacin) 250 Mg Tab 1 TAB PO DAILY, #14 Referrals At Discharge Follow up Referrals: Physician Referral - Within 1-2 Weeks with Deion Downs M.D. Toy Assembly Supervisor Referral - Within 1-2 Weeks with Aneudy Muñoz PA-C Discharge Exam Pt feeling much improved, wanting to go home. No chest pain or SOB Physical Exam: Vitals reviewed NAD, very pleasant, AAOx3 RRR no mgr Lungs with decreased BS and some crackles at bases Abd soft NT ND +BS Ext trace pitting edema Review of Systems: Constitutional: No fever Eyes: No problem reported ENT: No problem reported Respiratory: + cough (but improved) Cardiovascular: No chest pain Abdomen: No diarrhea Musculoskeletal: No problem reported Genitourinary - Female: No problem reported Neurologic: No problem reported Psychiatric: No problem reported Endocrine: No problem reported Hematologic / Lymphatic: No problem reported Integumentary: No problem reported Hospital Course This pt is an 85 y/o F w/complex Hx including chronic systolic CHF, PAF,PPM, CAD, DMII, CKD 3. Pt is was sent from an assisted living facility due primarily to a persistent cough. She had been treated with Levaquin for the past 10 days but has symptomatically worsened despite this. A CT chest was obtained in the ER revealing B/L ground glass opacities which may be infectious. The pt herself complains of a productive cough, mild SOB and neck discomfort, describing pain on the R side of her neck and a degree of dysphagia. She has not had CP or fevers but does have chest wall pain with coughing. Initial labs reveal acute on chronic kidney failure and hyperglycemia. The pt follows up with a delivery supervisor and has been treated for 6 months now with fluconazole for Ethel PNA. 1) Persistent cough likely acute on chronic bronchiectasis or bronchitis. Pulmonology consultation appreciated - Due to multiple allergies and possible aspiration, we will place the pt on Clindamycin and Zithromax.Pulm thought clinda could be stopped. Video swallow negative for aspiration. Continue 10 day course of azithro as discussed with her outpatient Toy Assembly Supervisor on the phone and will possibly go to a twice weekly regimen after that. Discussed case with Pulm in the hospital. Grew out MAC from 2 sputum cxs in Dec 2015 and no treatment since then except is being treated for many months with Fluconazole for Ethel PNA. Pt presented with persistent cough, low grade temp at home, not feeling well. Has been coughing off and on for months with sputum production. Feeling better now since admission and on azithro. ID and Pulm discussed treatment for MAC with pt and dude to high risk of toxicity from meds and unsure if would benefit, plus long course of treatment for MAC, it was decieded to not treat her for this. WIll continue Symbicort on discharge, no need for po steroids. 2)Chronic systolic CHF - clinically euvolemic - no obvious congestion on imaging - restart lasix on discharge as renal impairment resolved - monitor volume status - cont B katie 3) CKD and acute on chronic RF - creatinine has been elevated since 06/08 on review of recent labs but baseline shop estimator 1.1-1.2, came in with shop estimator 1.7 which may have been secondary to some prerenal cause/dehydration. Renal function improved with gentle IVF. -continue to follow renal function as outpatient -avoid nephrotoxins and renally dose all meds 4) DMII with hyperglycemia on admission - HgbA1C 7.9% in 05/2016. fairly good control for her age and comorbidities. She did have a glucose of 67 the AM after admission. -placed on SS with AM Levemir and adjusted for hypoglycemia 5) PAF - rate paced at 60 BPM - cont B-katie and Diltiazem 6) Lung candidiasis - cont Diflucan as per primary Pulm Discharged to home after 2 days to her Personal group home and close f/u with PCP and Pulm Total Time Spent: Greater than 30 minutes This includes examination of the patient, discharge planning, medication reconciliation, and communication with other providers. Discharge Instructions Please refer to the electronic Patient Visit Report (Discharge Instructions) for additional information. Additional Copies To Deion Downs M.D.; Aneudy Muñoz PA-C
== END 2016-08-17 18:15 | disposition home or self-care (01) | DRG 177 ==
LOC: ENRESERVDT → ENRESERVTM → C.EDB 19:36 → C.MED 08-16 01:46
PROVIDERS: ADMIT Internal Medicine; ATTEND Family Medicine
DX: A31.0 Pulmonary mycobacterial infection (principal); B37.1 Pulmonary candidiasis; N17.9 Acute kidney failure, unspecified; I13.0 Hypertensive heart and chronic kidney disease with heart failure and stage 1 through stage 4 chronic kidney disease, or unspecified chronic kidney disease; J47.1 Bronchiectasis with (acute) exacerbation; I50.22 Chronic systolic (congestive) heart failure; N18.3 Chronic kidney disease, stage 3 (moderate); R91.1 Solitary pulmonary nodule; I48.91 Unspecified atrial fibrillation; J16.8 Pneumonia due to other specified infectious organisms; K21.9 Gastro-esophageal reflux disease without esophagitis; I25.10 Atherosclerotic heart disease of native coronary artery without angina pectoris; E11.22 Type 2 diabetes mellitus with diabetic chronic kidney disease; Z95.0 Presence of cardiac pacemaker; Z95.1 Presence of aortocoronary bypass graft; Z79.899 Other long term (current) drug therapy; Z79.51 Long term (current) use of inhaled steroids; Z79.1 Long term (current) use of non-steroidal anti-inflammatories (NSAID); Z79.01 Long term (current) use of anticoagulants

== ENCOUNTER → 2016-08-15 | Outpatient (CLI) | payer OTHER, MEDICARE ==
[2016-08-15 16:59] LABS: BASO % 0.2 %; BASO ABS # 0.02 K/uL (0-0.2); COMPLETE YES; EOS % 1.8 %; HEMATOCRIT 37.9 % (37-47); IG% 0.4 %; LYMPH % 15.9 %; MEAN CORPUSCULAR HEMOGLOBIN 30.6 pg (25-34); MEAN CORPUSCULAR HGB CONC 33.2 g/dl (32-36); MEAN PLATELET VOLUME 8.8 fL (7.4-10.4); MONO % 9.4 %; NEUT % 72.3 %; PLATELET COUNT 267 K/uL (130-400); RED BLOOD COUNT 4.12 M/uL (4.2-5.4); WHITE BLOOD COUNT 10.69 K/uL (4.8-10.8)
[2016-08-15 17:11] LABS: ALT/SGPT 16 U/L (12-78); AST/SGOT 15 U/L (15-37); BLOOD UREA NITROGEN 27 mg/dl (7-18); BUN/CREATININE RATIO 14.8 (10-20); CALCIUM 8.4 mg/dl (8.5-10.1); CARBON DIOXIDE 27 mmol/L (21-32); CHLORIDE 95 mmol/L (98-107); GLUCOSE 343 mg/dl (70-99); POTASSIUM 3.9 mmol/L (3.5-5.1); SODIUM 132 mmol/L (136-145)
[2016-08-15 17:14] LABS: ALB/GLOB RATIO 0.6 (0.9-2)
[2016-08-15 17:21] LABS: ALKALINE PHOSPHATASE 104 U/L (45-117); BETA-HYDROXYBUTYRATE 1.55 mg/dL (0.2-2.81)
[2016-08-15 17:50] LABS: LYME DISEASE AB IGG NEG (NEG); LYME DISEASE AB IGM NEG (NEG)
== END | disposition home or self-care (01) ==
LOC: C.LABBC 14:07
PROVIDERS: ATTEND Internal Medicine Cardiovascular Disease
DX: D72.829 Elevated white blood cell count, unspecified (principal); R06.02 Shortness of breath; R60.9 Edema, unspecified; R79.89 Other specified abnormal findings of blood chemistry; R50.9 Fever, unspecified; N18.9 Chronic kidney disease, unspecified; Z79.899 Other long term (current) drug therapy

== ENCOUNTER → 2016-09-19 | Outpatient (CLI) | payer OTHER, MEDICARE ==
[~2016-09-19] MED LIST changes: +ATR25 PO; +BNC5 PO; +DOXY-300 PO; -DOXY100C76 PO; +FERR1TAB13 PO; +GABA-112 PO; +GFNSR600 PO; -INSDGIPEN SC; +INSU3INJ3 SC; +INSU3INJ3 SQ; +LPT10 PO; +MCTP EXT; +OMEG12006 PO; +OPTIRAY 320 IV PRN; -PRLNL PO; +SYMIN INH; +TRMCR130WC; +ZTHM250 PO
--- NOTE | 2016-09-19 10:53 | DIAGNOSTIC IMAGING REPORT ---
CHEST CT WITH CONTRAST CT DOSE: 269.50 mGy.cm HISTORY: Dyspnea J44.9 Chronic obstructive [id number] Shortness TECHNIQUE: Multiaxial CT images of the chest were performed following the intravenous administration of contrast. COMPARISON: 08/15/2016 FINDINGS: No change compared to the prior exam. Changes of prior median sternotomy. Atherosclerotic change and ectasia thoracic aorta stable. Bipolar cardiac pacemaker. There is a groundglass densities throughout both hemithoraces with micronodularity bilaterally considered unchanged. There are no new or interval findings. Limited evaluation the upper abdomen is unremarkable. IMPRESSION: 1. No change from the prior study. 2. Several groundglass densities as well as mild emphysematous change are unaltered. 3. Unchanging 1.8 cm precarinal node. 4. Study overall is unchanged with no evidence for new interval or progressive process. Electronically signed by: Yfn Hoang M.D. 09/19/2016 10:51 AM Dictated Date/Time: 09/19/2016 10:48 AM
== END | disposition home or self-care (01) ==
LOC: C.CTS 10:17
PROVIDERS: ATTEND Physician Assistant
DX: J44.9 Chronic obstructive pulmonary disease, unspecified (principal); R06.02 Shortness of breath; R04.2 Hemoptysis; R91.1 Solitary pulmonary nodule

== ENCOUNTER → 2016-11-14 | Outpatient (CLI) | payer OTHER, MEDICARE ==
[~2016-11-14] MED LIST changes: -OPTIRAY 320 IV PRN
[2016-11-14 17:41] LABS: BASO % 0.3 %; BASO ABS # 0.03 K/uL (0-0.2); COMPLETE YES; EOS % 3.3 %; HEMATOCRIT 37.8 % (37-47); IG% 0.3 %; LYMPH % 22.5 %; LYMPH ABS # 2.65 K/uL (1.2-3.4); MEAN CELL VOLUME 90.9 fL (80-100); MEAN CORPUSCULAR HGB CONC 34.1 g/dl (32-36); MEAN PLATELET VOLUME 8.9 fL (7.4-10.4); MONO % 7.4 %; NEUT % 66.2 %; PLATELET COUNT 303 K/uL (130-400); RED BLOOD COUNT 4.16 M/uL (4.2-5.4); WHITE BLOOD COUNT 11.77 K/uL (4.8-10.8)
[2016-11-14 18:21] LABS: URINE APPEARANCE CLEAR (CLEAR); URINE BILIRUBIN NEG (NEG); URINE COLOR YELLOW; URINE NITRITE NEG (NEG); URINE PH 6.5 (4.5-7.5); URINE SPECIFIC GRAVITY 1.019 (1.000-1.030); UROBILINOGEN NEG (NEG)
[2016-11-14 18:39] LABS: MANUAL MICROSCOPIC REQUIRED? NO; REVIEW REQ? YES
== END | disposition home or self-care (01) ==
LOC: C.LAB1850 16:03
PROVIDERS: ATTEND Physician Assistant
DX: R06.02 Shortness of breath (principal)

== ENCOUNTER → 2016-11-16 | Outpatient (CLI) | payer OTHER, MEDICARE ==
[2016-11-16 12:46] LABS: URINE APPEARANCE CLEAR (CLEAR); URINE BILIRUBIN NEG (NEG); URINE COLOR YELLOW; URINE EPITHELIAL CELL AUTO 0-5 /lpf (0-5); URINE NITRITE NEG (NEG); URINE SPECIFIC GRAVITY 1.013 (1.000-1.030); UROBILINOGEN NEG (NEG); ZZUR CULT IF INDIC CLEAN CATCH NO
[2016-11-16 12:50] LABS: MANUAL MICROSCOPIC REQUIRED? NO; REVIEW REQ? NO
== END | disposition home or self-care (01) ==
LOC: C.LABPBG 09:11
PROVIDERS: ATTEND Physician Assistant
DX: R39.9 Unspecified symptoms and signs involving the genitourinary system (principal)

== ENCOUNTER 2016-11-21 12:04 | Emergency (ER) | payer OTHER, MEDICARE ==
[~2016-11-21] VITALS: Ht 160 cm; Wt 52.5 kg
[~2016-11-21 12:04] MED LIST changes: -BNC5 PO; -DOXY-300 PO; -FERR1TAB13 PO; -GABA-112 PO; -INSU3INJ3 SQ; -OMEG12006 PO; -TRMCR130WC
[2016-11-21 12:14] VITALS: Ht 160 cm; Wt 52.5 kg
[2016-11-21] MEDS ORDERED: SODIUM CHLORIDE 0.9% 1000ML 500 ML IV STA (12:47)
[2016-11-21] MEDS ORDERED: SODIUM CHLORIDE 0.9% 1000ML 1,000 ML IV STA (12:47)
--- NOTE | 2016-11-21 12:57 | EMERGENCY ROOM VISIT NOTE ---
History Report prepared by Juan: Edmund Forte Under the Supervision of: Dr. Sumit Porras M.D. First contact with patient: 12:43 Chief Complaint: OTHER COMPLAINT Stated Complaint: SWELLING, WEAK, COUGH X 2 MTHS, V, CAN'T EAT History of Present Illness The patient is an 86 year old female with a history of heart failure who presents to the Emergency Room with complaints of a worsening illness that started around a month and a half ago. She says that she has been having a productive cough with green sputum, and saw her supervisor composing room last week, who put the patient on an antibiotic, which the patient notes has not been helping. She states that she has been feeling "so sick" and weak, and has had spells of nausea and vomiting. The patient says that she woke up around 0200 this morning , and vomited. She says that her nausea has been getting worse over the past 2 or 3 days. The patient adds that she has had swelling in her legs the past week or so, and started having left arm swelling 2 days ago. She was recommended to start taking Lasix daily, and has been taking Lasix for the past 4 days, which has been decreasing her extremity swelling a bit. She says that she has no history of swelling. The patient notes that she has been having pain in her neck , and behind her head as well as around her ears, and she is not sure whether the pain is from the cough. She denies any chest pain or bowel problems. Source of History: patient Onset: A month and a half ago Position: other (global - illness) Symptom Intensity: feels "so sick" Timing: worsening Associated Symptoms: + headache, + cough, + neck pain, + nausea, + vomiting , + weakness, No chest pain Note: Associated symptoms: Bilateral leg swelling. Left arm swelling. Trouble eating. Pain around ears. Denies bowel problems. Review of Systems See HPI for pertinent positives & negatives. A total of 10 systems reviewed and were otherwise negative. Past Medical & Surgical Medical Problems: (1) Acute bronchitis with bronchiectasis (2) Acute exacerbation of CHF (congestive heart failure) (3) Atrial fibrillation (4) CHF (congestive heart failure) (5) Cough (6) DM (diabetes mellitus) (7) GERD (gastroesophageal reflux disease) (8) Pacemaker (9) PNA (pneumonia) (10) Renal failure (11) SBO (small bowel obstruction) Surgical Problems: (1) History of cardiac cath (2) S/P quintuple vessel bypass Family History Omitted secondary to age Social History Smoking Status: Never Smoker Alcohol Use: none Drug Use: none Marital Status: Housing Status: other (personal jail) Occupation Status: retired Current/Historical Medications Scheduled Albuterol Sulf (Albuterol Sulfate), 2.5 MG NEB Q4H Aspirin (Aspirin Ec), 81 MG PO DAILY Atorvastatin (Atorvastatin Calcium), 1 TAB PO QPM Cholecalciferol (Vitamin D3), 1,000 INTER.UNIT PO QAM Cranberry (Vaccinium Macrocarp (Cranberry), 1,000 MG PO BID Cyanocobalamin (Vitamin B12), 1,000 MCG PO QAM Diltiazem Hcl Extended Release (Diltiazem Hcl), 240 MG PO QAM Doxycycline (Monohydrate) (Doxycycline), 100 MG PO Q12 Escitalopram (Lexapro), 5 MG PO DAILY Ferrous Sulfate (Kp Ferrous Sulfate), 325 MG PO DAILY Furosemide (Furosemide), 40 MG PO QAM Gabapentin (Neurontin), 100 MG PO DAILY Guaifenesin Ext Rel (Mucinex Ext Rel), 600 MG PO Q12 Hydroxyzine HCl (Hydroxyzine HCl), 25 MG PO HS Insulin Detemir (Levemir Flextouch), 30 UNIT SQ DAILY Levothyroxine Sodium (Levothyroxine Sodium), 50 MCG PO QAM Loratadine (Claritin), 10 MG PO QAM Magnesium Oxide (Mag-Ox), 400 MG PO QAM Metoprolol Tartrate (Lopressor) (Lopressor), 100 MG PO BID Olmesartan Medoxomil (Benicar), 5 MG PO HS [place]-3 Fatty Acids ([place] 3), 2 CAP PO BID Scheduled PRN Benzonatate (Tessalon Perles), 100 MG PO TID PRN for Cough Docusate Sodium (Docusate Sodium), 100 MG PO BID PRN for Constipation Miconazole Nitrate (Desenex Shake Powder), 1 APPLN EXT PRN PRN for Affected Skin Folds Nitroglycerin (Nitrostat), 0.4 MG UT UD PRN for Chest Pain Miscellaneous Medications Triamcinolone Acet (Aristocort 0.1%) Allergies Coded Allergies: Fenofibrate (Verified Allergy, Intermediate, rash, 11/21/16) Amoxicillin (Verified Allergy, Unknown, UNKNOWN, 11/21/16) Aspartame (Unverified Allergy, Unknown, ., 11/21/16) Calcium Carbonate (Unverified Allergy, Unknown, ., 11/21/16) Ciprofloxacin (Unverified Allergy, Unknown, ., 11/21/16) Diphenhydramine (Unverified Allergy, Unknown, ., 11/21/16) Fexofenadine (Verified Allergy, Unknown, UNKNOWN, 11/21/16) Irbesartan (Verified Allergy, Unknown, UNKNOWN, 11/21/16) Lidocaine (Unverified Allergy, Unknown, ., 11/21/16) Niacin (Verified Allergy, Unknown, RASH, 11/21/16) Nystatin (Unverified Allergy, Unknown, ., 11/21/16) Penicillins (Verified Allergy, Unknown, UNKNOWN, 11/21/16) Sulfa Antibiotics (Verified Allergy, Unknown, UNKNOWN, 11/21/16) Tomato (Verified Allergy, Unknown, GI SYMPTOMS, 11/21/16) Flumazenil (Unverified Adverse Reaction, Intermediate, DELIRIUM, 11/21/16) anxious, increased heart rate, increased blood pressure Physical Exam Vital Signs Date Time Temp Pulse Resp B/P (MAP) Pulse Ox O2 Delivery O2 Flow Rate FiO2 11/21/16 19:15 37.1 67 18 147/53 97 11/21/16 17:44 62 18 167/59 99 Nebulizer 11/21/16 17:43 62 16 93 Room Air 11/21/16 17:18 64 11/21/16 15:34 63 27 11/21/16 15:33 182/54 11/21/16 15:10 194/55 11/21/16 14:31 157/80 11/21/16 14:27 151/49 11/21/16 14:27 60 24 151/49 94 11/21/16 14:04 61 18 11/21/16 13:08 63 155/64 61 157/63 60 132/64 11/21/16 13:04 61 20 90 11/21/16 13:02 132/64 11/21/16 13:01 157/63 11/21/16 13:00 155/64 11/21/16 12:58 60 8/30/17 12:42 159/82 11/21/16 12:14 37.1 60 20 181/69 93 Physical Exam GENERAL: Patient is in no acute distress. Dry cough noted. HEENT: No acute trauma, normocephalic atraumatic, mucous membranes moist, no nasal congestion, no scleral icterus. NECK: No stridor, no adenopathy, no meningismus, trachea is midline. LUNGS: Crackles throughout all lung villalobos. No wheezing. Decreased breath sounds bilaterally. Breath sounds equal. HEART: 2/6 systolic murmur with a regular rate and rhythm. ABDOMEN: Soft, nontender, bowel sounds positive, no hernias, no peritonitis. EXTREMITIES: Moderate bilateral pedal edema without cellulitis. Edema also noted to the left upper extremity. No cyanosis, full range of motion of all the joints without pain or difficulty, no signs for acute trauma. NEUROLOGIC: Oriented x 3, no acute motor or sensory deficits, no focal weakness. SKIN: No rash, no jaundice, no diaphoresis. Medical Decision & Procedures ER Provider Diagnostic Interpretation: Orthostatic vital signs are positive. Radiology results as stated below per my review and radiologist interpretation: ABDOMEN 2VIEW W/PA CHEST RTN CLINICAL HISTORY: vomiting COMPARISON STUDY: 08/15/2016 FINDINGS: The patient is hyperinflated. There is a left subclavian dual-chamber central venous pacemaker present. There are postsurgical changes of midline sternotomy. The heart is normal in size. There is mild interstitial thickening. There is no free intraperitoneal air. Erect and supine views the abdomen reveal surgical clips in the right upper quadrant. There are no abnormally dilated loops of large or small bowel. There are no transition zones indicate bowel obstruction. There are no calcifications suspicious for renal calculi. There are postsurgical changes present with a suture line visualized in the region of the left hemipelvis. IMPRESSION: No evidence of bowel obstruction. No evidence of free air. Electronically signed by: Florian Lua M.D. 11/21/2016 1:34 PM Dictated Date/Time: 11/21/2016 1:33 PM (CHEST) THORAX WITHOUT CLINICAL HISTORY: Shortness of breath. Elevated white count. COPD. Possible pneumonia. COMPARISON STUDY: Chest x-ray dated 11/21/2016, chest CT dated 09/11/2016 CT DOSE: 367.73 mGy.cm TECHNIQUE: CT of the thorax was performed from the thoracic inlet to the lung bases. Images are reviewed in the axial, sagittal, and coronal planes. IV contrast was not administered for this examination. A dose lowering technique was utilized adhering to the principles of ALARA. FINDINGS: Thyroid: Imaged portions of the thyroid gland are normal in appearance. Thoracic aorta: The thoracic aorta is normal in course and caliber, noting standard 3 vessel arch anatomy. Heart: There is a left subclavian dual-chamber central venous pacemaker present. There is no significant pericardial effusion. Lungs and pleural spaces: There is subtle groundglass mosaic attenuation. There is no lobar consolidation. There are multiple scattered subcentimeter pulmonary nodules the largest of which measures 5 mm. These remain stable. Mediastinum: There is persistent mediastinal lymphadenopathy. An index precarinal lymph node measures 17 mm. This remain stable. Margaret: Borderline enlarged hilar lymph nodes are suspected. Evaluation the hilar structures is limited given the lack of intravenous contrast Axilla: There is no evidence of pathologic axillary lymphadenopathy Upper abdomen: There is stable left adrenal gland thickening. The partially visualized left kidney appears atrophic Skeletal structures: There are no lytic or blastic osseous lesions. IMPRESSION: 1. Stable subcentimeter scattered pulmonary nodules 2. Stable mediastinal adenopathy with a 17 mm precarinal lymph node 3. No evidence of lobar consolidation 4. Subtle groundglass attenuation with a mosaic pattern. This is nonspecific but may indicate small airway disease Electronically signed by: Florian Lua M.D. 11/21/2016 3:05 PM Dictated Date/Time: 11/21/2016 2:58 PM VENOUS DOPPLER LWR EXT BILA CLINICAL HISTORY: 86 years-old Female presenting with swelling. TECHNIQUE: Real-time grayscale and color and spectral Doppler ultrasound imaging of the veins of the bilateral lower extremities was performed. Compression and augmentation were also utilized. COMPARISON: 05/10/2015. FINDINGS: Right: Common femoral vein: Patent. Femoral vein: Patent. Greater saphenous vein: Patent. Popliteal vein: Patent. Calf veins: Limited visualization. Left: Common femoral vein: Patent. Femoral vein: Patent. Greater saphenous vein: Patent. Popliteal vein: Patent. Calf veins: Limited visualization. Other: None. IMPRESSION: No evidence of deep venous thrombosis. Electronically signed by: Deion Hernandez M.D. 11/21/2016 5:26 PM Dictated Date/Time: 11/21/2016 5:16 PM LEFT VENOUS DOPPLER UPR EXT UNIL CLINICAL HISTORY: 86 years-old Female presenting with swelling. TECHNIQUE: Real-time grayscale and color and spectral Doppler ultrasound imaging of the veins of the left upper extremity was performed. Compression and augmentation were also utilized. COMPARISON: None. FINDINGS: Left: Subclavian vein: Patent. Internal jugular vein: Patent. Axillary vein: Patent. Brachial vein: Patent. Cephalic vein: Patent. Basilic vein: Patent. Radial vein: Patent. Ulnar vein: Patent. Other: None. IMPRESSION: No evidence of deep venous thrombosis. Electronically signed by: Deion Hernandez M.D. 11/21/2016 5:47 PM Dictated Date/Time: 11/21/2016 5:46 PM Laboratory Results 11/21/16 12:35 Red Blood Count 4.26, Mean Corpuscular Volume 92.0, Mean Corpuscular Hemoglobin 30.8, Mean Corpuscular Hemoglobin Concent 33.4, Mean Platelet Volume 8.7, Neutrophils (%) (Auto) 79.8, Lymphocytes (%) (Auto) 13.0, Monocytes (%) (Auto) 5.3, Eosinophils (%) (Auto) 1.6, Basophils (%) (Auto) 0.1, Neutrophils # (Auto) 11.68, Lymphocytes # (Auto) 1.90, Monocytes # (Auto) 0.78, Eosinophils # (Auto) 0.23, Basophils # (Auto) 0.02 11/21/16 12:35 Test 11/21/16 12:35 11/21/16 16:48 11/21/16 18:10 White Blood Count 14.64 K/uL (4.8-10.8) Red Blood Count 4.26 M/uL (4.2-5.4) Hemoglobin 13.1 g/dL (12.0-16.0) Hematocrit 39.2 % (37-47) Mean Corpuscular Volume 92.0 fL (80-100) Mean Corpuscular Hemoglobin 30.8 pg (25-34) Mean Corpuscular Hemoglobin Concent 33.4 g/dl (32-36) Platelet Count 292 K/uL (130-400) Mean Platelet Volume 8.7 fL (7.4-10.4) Neutrophils (%) (Auto) 79.8 % Lymphocytes (%) (Auto) 13.0 % Monocytes (%) (Auto) 5.3 % Eosinophils (%) (Auto) 1.6 % Basophils (%) (Auto) 0.1 % Neutrophils # (Auto) 11.68 K/uL (1.4-6.5) Lymphocytes # (Auto) 1.90 K/uL (1.2-3.4) Monocytes # (Auto) 0.78 K/uL (0.11-0.59) Eosinophils # (Auto) 0.23 K/uL (0-0.5) Basophils # (Auto) 0.02 K/uL (0-0.2) RDW Standard Deviation 43.8 fL (36.4-46.3) RDW Coefficient of Variation 13.1 % (11.5-14.5) Immature Granulocyte % (Auto) 0.2 % Immature Granulocyte # (Auto) 0.03 K/uL (0.00-0.02) Prothrombin Time 10.5 SECONDS (9.0-12.0) Prothromb Time International Ratio 1.0 (0.9-1.1) Activated Partial Thromboplast Time 29.4 SECONDS (21.0-31.0) Partial Thromboplastin Ratio 1.1 Anion Gap 8.0 mmol/L (3-11) Est Creatinine Clear Calc Drug Dose 21.8 ml/min Estimated GFR () 35.9 Estimated GFR (Non- 31.0 BUN/Creatinine Ratio 14.5 (10-20) Calcium Level 8.9 mg/dl (8.5-10.1) Magnesium Level 1.7 mg/dl (1.8-2.4) Total Bilirubin 0.4 mg/dl (0.2-1) Aspartate Amino Transf (AST/SGOT) 20 U/L (15-37) Alanine Aminotransferase (ALT/SGPT) 19 U/L (12-78) Alkaline Phosphatase 117 U/L (45-117) Pro-B-Type Natriuretic Peptide 8961 pg/ml (0-1800) Total Protein 6.8 gm/dl (6.4-8.2) Albumin 2.5 gm/dl (3.4-5.0) Globulin 4.3 gm/dl (2.5-4.0) Albumin/Globulin Ratio 0.6 (0.9-2) Thyroid Stimulating Hormone (TSH) 3.270 uIu/ml (0.300-4.500) Free Thyroxine 1.02 ng/dl (0.80-1.60) Bedside Glucose 207 mg/dl (70-90) Urine Color YELLOW Urine Appearance CLEAR (CLEAR) Urine pH 6.5 (4.5-7.5) Urine Specific [place] 1.016 (1.000-1.030) Urine Protein 3+ (NEG) Urine Glucose (UA) NEG (NEG) Urine Ketones NEG (NEG) Urine Occult Blood NEG (NEG) Urine Nitrite NEG (NEG) Urine Bilirubin NEG (NEG) Urine Urobilinogen NEG (NEG) Urine Leukocyte Esterase NEG (NEG) Urine WBC (Auto) 1-5 /hpf (0-5) Urine RBC (Auto) 0-4 /hpf (0-4) Urine Hyaline Casts (Auto) 1-5 /lpf (0-5) Urine Epithelial Cells (Auto) 10-20 /lpf (0-5) Urine Bacteria (Auto) NEG (NEG) Laboratory results reviewed by me. Medications Administered Medications (Trade) Dose Ordered Sig/Leslee Route Start Time Stop Time Status Last Admin Dose Admin Sodium Chloride 500 ml @ 999 mls/hr Q31M STAT IV 11/21/16 12:47 11/21/16 13:17 DC 11/21/16 13:05 999 MLS/HR Ondansetron HCl (Zofran Odt) 4 mg ONE ONCE PO 11/21/16 13:00 11/21/16 13:01 DC 11/21/16 13:04 4 MG Sodium Chloride 1,000 ml @ 200 mls/hr Q5H STAT IV 11/21/16 12:47 11/21/16 17:46 DC 11/21/16 14:28 200 MLS/HR Magnesium Sulfate (Magnesium Sulfate) 1 gm NOW STAT IV 11/21/16 13:22 11/21/16 13:23 DC 11/21/16 13:41 1 GM Levalbuterol (Xopenex 1.25MG/ 0.5ML Neb) 1.25 mg NOW STAT INH 11/21/16 17:08 11/21/16 17:09 DC 11/21/16 17:42 1.25 MG Ipratropium Boss (Atrovent 0.02% 0.5MG/2.5ML Neb) 0.5 mg NOW STAT INH 11/21/16 17:08 11/21/16 17:09 DC 11/21/16 17:42 0.5 MG Ondansetron HCl (ZOFRAN ODT 4MG Home Pack) 1 homepack UD ONCE PO 11/21/16 19:00 11/21/16 19:01 DC 11/21/16 19:06 1 HOMEPACK ECG Indication: weakness Rate (beats per minute): 62 Rhythm: other (atrial pacemaker) Findings: LBBB, PAC, no acute ischemic change Change: no significant change (compared to 08/16/16) ED Course 1245: The patient was evaluated in room A12B. A complete history and physical exam was performed. 1247: Ordered NSS 1000 ml @ 200 mls/hr IV, NSS 500 ml @ 999 mls/hr IV. 1300: Ordered Zofran Odt 4 mg PO. 1322: Ordered Magnesium Sulfate 1 gm IV. 1658: I reevaluated and updated the patient. She is doing well. 1708: Ordered Atrovent 0.02% 0.5MG/2.5ML Neb 0.5 mg INH, Xopenex 1.25MG/0.5ML Neb 1.25 mg INH. 1850: I reevaluated the patient and she feels better now and is coughing less. She ate as well. The patient requests some Zofran to go home with. The patient verbally expressed understanding and agreement of the treatment plan. The patient will be discharged. The case management social worker will try to get the patient in to see her family doctor tomorrow or the following day. 1900: Ordered Zofran ODT 4MG Home Pack 1 homepack PO. Medical Decision Differential diagnosis includes but is not limited to CHF, cardiac ischemia or DC, electrolyte imbalance, renal failure, fluid overload, DVT, anemia, pneumonia , bronchitis. There is a moderate leukocytosis, this could be consistent with infection or the stress of her situation. No concerning anemia. There was some renal insufficiency but this is baseline looking back at previous values. Magnesium slightly low at 1.7. There was no hepatitis. The patient appears to be in a euthyroid state. EKG shows a pacemaker functioning normally. Obstruction series shows no pneumonia or bowel obstruction. Chronic changes to the lungs were noted. Chest CT does not show CHF or pneumonia. Lower airway disease was suspected. Lower extremity ultrasound does not show DVT. Left upper extremity ultrasound does not show DVT. Urinalysis does not show infection. Blood cultures are pending. The patient did drop her blood sugar here but this rebounded after she ate. Her BNP returned elevated consistent with fluid overload. The patient was given IV magnesium, she received IV saline when she was noted to be somewhat orthostatic with standing. She received a Xopenex Atrovent neb to help the bronchitis. She received IV Zofran for nausea. The patient is not hypoxic or toxic. She has not had chest pain, her biggest complaint is cough. Her workup is relatively benign. She is peripherally fluid overloaded and this explains her edema. She believes the edema has improved since using Lasix. I believe she has acute bronchitis and I think this is causing her cough and most likely her fatigue and weakness. She is already on doxycycline. She has inhalers she is using. I'm going to give her some Zofran to try to help with her nausea as she believes helped her when she was in the emergency room. The patient is not in need of a hospital stay. I do think she can be cared for as an outpatient. Case management has been involved and they are attempting to make an appointment for her for this week with her family doctor's office. She was encouraged to return here if things are worsening. She can return for fever or worsening dyspnea. She should return for any chest pain. Medication Reconcilliation Current Medication List: was personally reviewed by me Blood Pressure Screening Patient's blood pressure: Elevated blood pressure Blood pressure disposition: Referred to PCP Impression Primary Impression: Acute bronchitis Additional Impressions: Edema Weakness Scribe Attestation The scribe's documentation has been prepared under my direction and personally reviewed by me in its entirety. I confirm that the note above accurately reflects all work, treatment, procedures, and medical decision making performed by me. Departure Information Dispostion Home / Self-Care Referrals Deion Downs M.D. (PCP) Patient Instructions My [facility] Additional Instructions continue the doxycycline and the lasix for now see your socorro cerna this week return if worsening try zofran for nausea, 1 tab as needed every 6 hours lab testing and imaging were ok today no pneumonia seen, no blood clotting seen Problem Qualifiers
[2016-11-21] MEDS ORDERED: ONDANSETRON 4MG OD TAB PO ONE (13:00)
[2016-11-21 13:02] LABS: BASO % 0.1 %; BASO ABS # 0.02 K/uL (0-0.2); COMPLETE YES; EOS % 1.6 %; HEMATOCRIT 39.2 % (37-47); IG% 0.2 %; MEAN CORPUSCULAR HEMOGLOBIN 30.8 pg (25-34); MEAN CORPUSCULAR HGB CONC 33.4 g/dl (32-36); MEAN PLATELET VOLUME 8.7 fL (7.4-10.4); MONO % 5.3 %; NEUT % 79.8 %; PLATELET COUNT 292 K/uL (130-400); RED BLOOD COUNT 4.26 M/uL (4.2-5.4); WHITE BLOOD COUNT 14.64 K/uL (4.8-10.8)
[2016-11-21 13:13] LABS: PARTIAL THROMBOPLASTIN RATIO 1.1; PROTHROMBIN TIME (PATIENT) 10.5 SECONDS (9.0-12.0)
[2016-11-21 13:20] LABS: BUN/CREATININE RATIO 14.5 (10-20); CALCIUM 8.9 mg/dl (8.5-10.1); CREATININE 1.5 mg/dl (0.60-1.20); MAGNESIUM 1.7 mg/dl (1.8-2.4); POTASSIUM 3.6 mmol/L (3.5-5.1)
[2016-11-21] MEDS ORDERED: MAGNESIUM SULFATE 1GM / D5W 1 GM BAG IV STA (13:22)
[2016-11-21] MEDS ORDERED: DOXY-300 PO (13:29)
[2016-11-21] MEDS ORDERED: GABA-112 PO (13:29)
[2016-11-21] MEDS ORDERED: FERR1TAB13 PO (13:29)
[2016-11-21] MEDS ORDERED: OMEG12006 PO (13:29)
[2016-11-21] MEDS ORDERED: TRMCR130WC (13:29)
[2016-11-21] MEDS ORDERED: BNC5 PO (13:29)
[2016-11-21] MEDS ORDERED: INSU3INJ3 SQ (13:29)
[2016-11-21 13:31] LABS: ALB/GLOB RATIO 0.6 (0.9-2); THYROID STIMULATING HORMONE 3.27 uIu/ml (0.300-4.500)
--- NOTE | 2016-11-21 13:35 | DIAGNOSTIC IMAGING REPORT ---
ABDOMEN 2VIEW W/PA CHEST RTN CLINICAL HISTORY: vomiting COMPARISON STUDY: 08/15/2016 FINDINGS: The patient is hyperinflated. There is a left subclavian dual-chamber central venous pacemaker present. There are postsurgical changes of midline sternotomy. The heart is normal in size. There is mild interstitial thickening. There is no free intraperitoneal air. Erect and supine views the abdomen reveal surgical clips in the right upper quadrant. There are no abnormally dilated loops of large or small bowel. There are no transition zones indicate bowel obstruction. There are no calcifications suspicious for renal calculi. There are postsurgical changes present with a suture line visualized in the region of the left hemipelvis. IMPRESSION: No evidence of bowel obstruction. No evidence of free air. Electronically signed by: Florian Lua M.D. 11/21/2016 1:34 PM Dictated Date/Time: 11/21/2016 1:33 PM
--- NOTE | 2016-11-21 15:06 | DIAGNOSTIC IMAGING REPORT ---
(CHEST) THORAX WITHOUT CLINICAL HISTORY: Shortness of breath. Elevated white count. COPD. Possible pneumonia. COMPARISON STUDY: Chest x-ray dated 11/21/2016, chest CT dated 09/11/2016 CT DOSE: 367.73 mGy.cm TECHNIQUE: CT of the thorax was performed from the thoracic inlet to the lung bases. Images are reviewed in the axial, sagittal, and coronal planes. IV contrast was not administered for this examination. A dose lowering technique was utilized adhering to the principles of ALARA. FINDINGS: Thyroid: Imaged portions of the thyroid gland are normal in appearance. Thoracic aorta: The thoracic aorta is normal in course and caliber, noting standard 3 vessel arch anatomy. Heart: There is a left subclavian dual-chamber central venous pacemaker present. There is no significant pericardial effusion. Lungs and pleural spaces: There is subtle groundglass mosaic attenuation. There is no lobar consolidation. There are multiple scattered subcentimeter pulmonary nodules the largest of which measures 5 mm. These remain stable. Mediastinum: There is persistent mediastinal lymphadenopathy. An index precarinal lymph node measures 17 mm. This remain stable. Margaret: Borderline enlarged hilar lymph nodes are suspected. Evaluation the hilar structures is limited given the lack of intravenous contrast Axilla: There is no evidence of pathologic axillary lymphadenopathy Upper abdomen: There is stable left adrenal gland thickening. The partially visualized left kidney appears atrophic Skeletal structures: There are no lytic or blastic osseous lesions. IMPRESSION: 1. Stable subcentimeter scattered pulmonary nodules 2. Stable mediastinal adenopathy with a 17 mm precarinal lymph node 3. No evidence of lobar consolidation 4. Subtle groundglass attenuation with a mosaic pattern. This is nonspecific but may indicate small airway disease Electronically signed by: Florian Lua M.D. 11/21/2016 3:05 PM Dictated Date/Time: 11/21/2016 2:58 PM
[2016-11-21] MEDS ORDERED: IPRATROPIUM BROMIDE NEB SOLN 0.02% 2.5 ML VIAL INH STA (17:08)
[2016-11-21] MEDS ORDERED: LEVALBUTEROL 1.25MG/0.5ML NEB INH STA (17:08)
--- NOTE | 2016-11-21 17:28 | DIAGNOSTIC IMAGING REPORT ---
VENOUS DOPPLER LWR EXT BILA CLINICAL HISTORY: 86 years-old Female presenting with swelling. TECHNIQUE: Real-time grayscale and color and spectral Doppler ultrasound imaging of the veins of the bilateral lower extremities was performed. Compression and augmentation were also utilized. COMPARISON: 05/10/2015. FINDINGS: Right: Common femoral vein: Patent. Femoral vein: Patent. Greater saphenous vein: Patent. Popliteal vein: Patent. Calf veins: Limited visualization. Left: Common femoral vein: Patent. Femoral vein: Patent. Greater saphenous vein: Patent. Popliteal vein: Patent. Calf veins: Limited visualization. Other: None. IMPRESSION: No evidence of deep venous thrombosis. Electronically signed by: Deion Hernandez M.D. 11/21/2016 5:26 PM Dictated Date/Time: 11/21/2016 5:16 PM
[2016-11-21 17:43] VITALS: PULSE 62; O2SAT 93
--- NOTE | 2016-11-21 17:49 | DIAGNOSTIC IMAGING REPORT ---
LEFT VENOUS DOPPLER UPR EXT UNIL CLINICAL HISTORY: 86 years-old Female presenting with swelling. TECHNIQUE: Real-time grayscale and color and spectral Doppler ultrasound imaging of the veins of the left upper extremity was performed. Compression and augmentation were also utilized. COMPARISON: None. FINDINGS: Left: Subclavian vein: Patent. Internal jugular vein: Patent. Axillary vein: Patent. Brachial vein: Patent. Cephalic vein: Patent. Basilic vein: Patent. Radial vein: Patent. Ulnar vein: Patent. Other: None. IMPRESSION: No evidence of deep venous thrombosis. Electronically signed by: Deion Hernandez M.D. 11/21/2016 5:47 PM Dictated Date/Time: 11/21/2016 5:46 PM
[2016-11-21 18:35] LABS: URINE APPEARANCE CLEAR (CLEAR); URINE BILIRUBIN NEG (NEG); URINE COLOR YELLOW; URINE NITRITE NEG (NEG); URINE PH 6.5 (4.5-7.5); URINE SPECIFIC GRAVITY 1.016 (1.000-1.030); UROBILINOGEN NEG (NEG)
[2016-11-21 18:36] LABS: MANUAL MICROSCOPIC REQUIRED? NO; REVIEW REQ? NO
[2016-11-21] MEDS ORDERED: ONDANSETRON HOME PACK 4MG OD TAB PO ONE (19:00)
[2016-11-21 19:15] VITALS: BP 147/53; PULSE 67; TEMP 37.1; O2SAT 97
== END 2016-11-21 19:22 | disposition home or self-care (01) ==
LOC: C.EDB 12:06 → C.EDA 19:22
DX: J20.9 Acute bronchitis, unspecified (principal); R60.0 Localized edema; R53.1 Weakness; I50.9 Heart failure, unspecified; M54.2 Cervicalgia; R51 Headache; I48.91 Unspecified atrial fibrillation; E11.9 Type 2 diabetes mellitus without complications; K21.9 Gastro-esophageal reflux disease without esophagitis; Z95.0 Presence of cardiac pacemaker; N19 Unspecified kidney failure; I44.7 Left bundle-branch block, unspecified; N28.9 Disorder of kidney and ureter, unspecified; Z79.4 Long term (current) use of insulin; Z79.82 Long term (current) use of aspirin

== ENCOUNTER → 2016-11-27 | Outpatient (CLI) | payer OTHER, MEDICARE ==
[~2016-11-27] MED LIST changes: +BNC5 PO; +DOXY-300 PO; +FERR1TAB13 PO; -FLUC200T4 PO; +GABA-112 PO; -INSU3INJ3 SC; +INSU3INJ3 SQ; -LANS30CA12 PO; -MOME6000 NAE; +OMEG12006 PO; -SYMIN INH; +TRMCR130WC; -ZTHM250 PO
[2016-11-27 12:12] LABS: BASO % 0.3 %; BASO ABS # 0.03 K/uL (0-0.2); COMPLETE YES; EOS % 2.3 %; HEMATOCRIT 36.9 % (37-47); IG% 0.4 %; LYMPH % 15.1 %; LYMPH ABS # 1.68 K/uL (1.2-3.4); MEAN CELL VOLUME 91.1 fL (80-100); MEAN CORPUSCULAR HEMOGLOBIN 30.6 pg (25-34); MEAN CORPUSCULAR HGB CONC 33.6 g/dl (32-36); MEAN PLATELET VOLUME 9.1 fL (7.4-10.4); MONO % 8.6 %; NEUT % 73.3 %; PLATELET COUNT 299 K/uL (130-400); RED BLOOD COUNT 4.05 M/uL (4.2-5.4); WHITE BLOOD COUNT 11.09 K/uL (4.8-10.8)
[2016-11-27 12:33] LABS: BLOOD UREA NITROGEN 26 mg/dl (7-18); BUN/CREATININE RATIO 16.5 (10-20); CALCIUM 8.7 mg/dl (8.5-10.1); CARBON DIOXIDE 30 mmol/L (21-32); CHLORIDE 98 mmol/L (98-107); GLUCOSE 263 mg/dl (70-99); POTASSIUM 3.6 mmol/L (3.5-5.1); SODIUM 134 mmol/L (136-145)
== END | disposition home or self-care (01) ==
LOC: C.LABPBG 10:01
PROVIDERS: ATTEND Physician Assistant Medical
DX: I48.91 Unspecified atrial fibrillation (principal); I25.10 Atherosclerotic heart disease of native coronary artery without angina pectoris; J20.9 Acute bronchitis, unspecified

== ENCOUNTER → 2017-01-18 | Outpatient (CLI) | payer OTHER, MEDICARE | END | disposition home or self-care (01) | LOC: C.LABPBG 11:52 | PROVIDERS: ATTEND Physician Assistant | DX: Z00.00 Encounter for general adult medical examination without abnormal findings (principal) ==

== ENCOUNTER 2017-05-02 16:08 | Emergency (ER) | payer OTHER, MEDICARE ==
[~2017-05-02] VITALS: Ht 160 cm; Wt 73.0 kg
[2017-05-02 16:19] VITALS: TEMP 36.8; Ht 160 cm; Wt 73.0 kg
[2017-05-02] MEDS ORDERED: ONDANSETRON INJ 2 MG/ML 2 ML VIAL IV STA (17:25)
[2017-05-02] MEDS ORDERED: SODIUM CHLORIDE 0.9% 1000ML 1,000 ML IV STA (17:25)
[2017-05-02] MEDS ORDERED: SODIUM CHLORIDE 0.9% 1000ML 1,000 ML IV ONE (17:25)
--- NOTE | 2017-05-02 17:52 | EMERGENCY ROOM VISIT NOTE ---
History Report prepared by Juan: Effie Morton Under the Supervision of: Dr. Kvng Billings M.D. First contact with patient: 17:17 Chief Complaint: DIARRHEA Stated Complaint: HASN'T ATE IN 3 DAYS, DIARRHEA, THROWING UP, FEVER Nursing Triage Summary: Lives in assisted living. Diarrhea x 1 month. Poor appetite and vomiting for 3 days. Has been on an atb since last month. Does report abd pain and cramping. History of Present Illness The patient is an 86 year old female who presents to the Emergency Room with complaints of constant diarrhea starting 3 days ago. The patient states that she was referred her by her doctor because they think she is dehydrated. The patient complains of vomiting, loss of appetite, fevers, chills, nausea, cough, abdominal pain, and hematochezia. She states her fever has been as high as 101. She reports that when she has a bowel movement it comes with bright red blood, but she doesn't think it is within her stool. The son states that she has not been able to take her medications, but notes that her Diabetes has been stable. The patient denies urinary symptoms. The patient notes that she takes Aspirin and was on antibiotics recently, but has not been able to take it. Source of History: patient Onset: 3 days ago Position: other (global) Quality: other (flu-like) Timing: constant Associated Symptoms: + fevers, + chills, + cough, + nausea, + vomiting, + abdominal pain, + hematochezia, No urinary symptoms Note: The patient complains of loss of appetite. Review of Systems See HPI for pertinent positives & negatives. A total of 10 systems reviewed and were otherwise negative. Past Medical & Surgical Medical Problems: (1) Acute bronchitis with bronchiectasis (2) Acute exacerbation of CHF (congestive heart failure) (3) Atrial fibrillation (4) CHF (congestive heart failure) (5) Cough (6) DM (diabetes mellitus) (7) GERD (gastroesophageal reflux disease) (8) Pacemaker (9) PNA (pneumonia) (10) Renal failure (11) SBO (small bowel obstruction) Surgical Problems: (1) History of cardiac cath (2) S/P quintuple vessel bypass Old medical records were reviewed. Nurse's notes were reviewed and I agree with. Family History Omitted secondary to age Social History Smoking Status: Never Smoker Alcohol Use: none Drug Use: none Marital Status: Housing Status: other Occupation Status: retired Current/Historical Medications Scheduled Albuterol Sulf (Albuterol Sulfate), 2.5 MG NEB Q4H Aspirin (Aspirin Ec), 81 MG PO QAM Cholecalciferol (Vitamin D3), 1,000 INTER.UNIT PO QAM Cranberry (Vaccinium Macrocarp (Cranberry), 1,000 MG PO BID Cyanocobalamin (Vitamin B12), 1,000 MCG PO QAM Diltiazem Hcl Extended Release (Diltiazem Hcl), 240 MG PO QAM Docusate Sodium (Docusate Sodium), 100 MG PO BID Escitalopram (Lexapro), 2.5 MG PO 1500 Ferrous Sulfate (Kp Ferrous Sulfate), 325 MG PO QAM Furosemide (Furosemide), 20 MG PO QAM Guaifenesin Ext Rel (Mucinex Ext Rel), 600 MG PO Q12 Hydroxyzine HCl (Hydroxyzine HCl), 25 MG PO HS Insulin Detemir (Levemir Flextouch), 32 UNIT SQ QAM Levothyroxine Sodium (Levothyroxine Sodium), 50 MCG PO QAM Loratadine (Claritin), 10 MG PO QAM Magnesium Oxide (Mag-Ox), 400 MG PO QAM Metoprolol Tartrate (Lopressor) (Lopressor), 100 MG PO BID Scheduled PRN Benzonatate (Tessalon Perles), 100 MG PO TID PRN for Cough Nitroglycerin (Nitrostat), 0.4 MG UT UD PRN for Chest Pain Allergies Coded Allergies: Fenofibrate (Verified Allergy, Intermediate, rash, 05/02/17) Amoxicillin (Verified Allergy, Unknown, UNKNOWN, 05/02/17) Aspartame (Unverified Allergy, Unknown, ., 05/02/17) Calcium Carbonate (Unverified Allergy, Unknown, ., 05/02/17) Ciprofloxacin (Unverified Allergy, Unknown, ., 05/02/17) Diphenhydramine (Unverified Allergy, Unknown, ., 05/02/17) Fexofenadine (Verified Allergy, Unknown, UNKNOWN, 05/02/17) Irbesartan (Verified Allergy, Unknown, UNKNOWN, 05/02/17) Lidocaine (Unverified Allergy, Unknown, ., 05/02/17) Niacin (Verified Allergy, Unknown, RASH, 05/02/17) Nystatin (Unverified Allergy, Unknown, ., 05/02/17) Penicillins (Verified Allergy, Unknown, UNKNOWN, 05/02/17) Sulfa Antibiotics (Verified Allergy, Unknown, UNKNOWN, 05/02/17) Tomato (Verified Allergy, Unknown, GI SYMPTOMS, 05/02/17) Flumazenil (Unverified Adverse Reaction, Intermediate, DELIRIUM, 05/02/17) anxious, increased heart rate, increased blood pressure Physical Exam Vital Signs Date Time Temp Pulse Resp B/P (MAP) Pulse Ox O2 Delivery O2 Flow Rate FiO2 05/02/17 22:15 76 20 131/69 95 05/02/17 21:08 83 20 140/64 94 Room Air 05/02/17 20:08 85 18 140/64 97 Room Air 05/02/17 18:19 93 18 133/94 94 Room Air 05/02/17 16:19 36.8 119 18 139/82 96 Room Air Physical Exam General: Non-ill appearing pale older female in no acute distress. HEENT: Normal cephalic atraumatic. Pupils are equal round and reactive to light. Extraocular movements are intact. Oropharynx is pink with moist mucous membranes. No swelling of the mouth lips or tongue. Neck: Supple with a midline trachea. No meningeal signs or stiffness, no JVD or bruits. No Stridor. Chest: Clear to auscultation bilaterally. No wheezes or rhonchi. No increased work of breathing. Heart: regular rate and rhythm. Abdomen: Soft nontender, nondistended without rebound guarding or rigidity. No tenderness of hernias seen or felt. Rectal: (in the presence of a female cone picker) normal tone. Brown stool. Guaiac negative. Extremities: No cyanosis or clubbing. No calf tenderness or assymetry. Trace to 1+ pitting edema, left greater than right which is chronic according to son. Spine/Back. Non tender to palpation. No CVA tenderness Skin: Good turgor without rashes. Neurologic exam: Cranial nerves two through 12 are intact. Motor and sensation are intact and symmetrical throughout. Medical Decision & Procedures ER Provider Diagnostic Interpretation: Radiology results as stated below per my review and radiologist interpretation: ABD/PELVIS NO IV OR ORAL CONT CLINICAL HISTORY: 86 years-old Female presenting with eval for bowel obstruction, fever and vomiting. TECHNIQUE: Multidetector CT of the abdomen and pelvis was performed without the use of intravenous contrast. IV contrast: None. A dose lowering technique was used consistent with the principles of ALARA (as low as reasonably achievable). COMPARISON: 04/12/2016. CT DOSE (mGy.cm): The estimated cumulative dose is 698.34 mGycm. FINDINGS: Product Marketing Engineer topogram: Partially visualized pacer leads to the right atrium and right ventricular apex. Median sternotomy wires. Cholecystectomy clips. Bilateral lower extremity medial thigh surgical clips. Lung bases: Mild interlobular septal thickening. Multiple small solid pulmonary nodules noted in the lower lobes, the largest measuring 3 mm on the right (series 3 image 21) and 3 mm on the left (series 3 image 44). Top normal heart size. Partially visualized pacer leads. Coronary artery calcification. Mitral annular calcification. No pericardial or pleural effusion. Liver: Normal morphology. Normal density. Biliary: No gross biliary ductal dilatation allowing for noncontrast technique. Gallbladder surgically absent. Pancreas: Moderate parenchymal atrophy. Spleen: Parenchymal calcification could suggest prior granulomatous disease. Adrenal glands: Extensive thickening of the left adrenal gland as on prior exam. Less extensive thickening of the right adrenal gland. Kidneys and ureters: Chronic atrophy of the left kidney. Normal noncontrast appearance of the right renal parenchyma. No hydronephrosis. No nephrolithiasis. Mild urothelial thickening of the right ureter. Bladder: Normal. Pelvic organs: Uterus surgically absent. No adnexal masses. Bowel: Diverticulosis of the sigmoid colon. No bowel obstruction. Postsurgical changes of small bowel resection with an anastomosis noted in the superior pelvis. Hyperdense material at the level of the anastomosis could relate to prior contrast menstruation. No surrounding inflammatory changes. Peritoneal cavity: No free fluid or intraperitoneal gas. Lymph nodes: Multiple subcentimeter retroperitoneal lymph nodes, nonspecific. Vasculature: Atherosclerosis of the normal caliber abdominal aorta. IVC patent. Abdominal wall: Postsurgical changes of the ventral hernia repair with prosthetic mesh at the level of the umbilicus. No recurrent hernia. No associated fluid or inflammatory change. Postsurgical changes in the right inguinal region, which demonstrates significant interval decrease in associated fat stranding and fluid. Essentially unremarkable appearance of the surgical scar. A small fat-containing right femoral may be present, right greater than left. Musculoskeletal: Degenerative changes of the spine. IMPRESSION: 1. Significant interval decrease in inflammatory changes associated with the right inguinal region. 2. Postsurgical changes of ventral hernia repair with prosthetic mesh. 3. Small fat-containing femoral hernias, right greater than left. 4. Postsurgical changes of small bowel resection with a small bowel anastomosis. No bowel obstruction. 5. Diverticulosis. 6. Multiple small solid pulmonary nodules at the lung bases measuring up to 3 mm. These are unchanged from most recent prior. 7. No convincing evidence of acute intra-abdominal pathology. Electronically signed by: Deion Hernandez M.D. 05/02/2017 7:12 PM Dictated Date/Time: 05/02/2017 7:01 PM SINGLE VIEW CHEST CLINICAL HISTORY: Atypical chest pain. FINDINGS: An AP, portable, upright chest radiograph is compared to chest x-ray and chest CT dated 11/21/2016. The examination is degraded by portable technique and patient rotation. A 2-lead cardiac pacemaker is unchanged in position and partially obscures the left mid chest. The patient is status post midline sternotomy. The heart is enlarged and there is atherosclerotic calcification of the thoracic aorta. The pulmonary vasculature is noncongested. Chronic interstitial thickening is similar to previous. No airspace consolidation or large pleural effusion is identified. There is minimal left basilar atelectasis. No pneumothorax is seen. The skeletal structures are osteopenic. Arthritic change is seen in the shoulders and thoracic spine. IMPRESSION: 1. Cardiomegaly and cardiac pacemaker. There is no radiographic evidence of congestive failure. 2. No airspace consolidation or large pleural effusion is identified. Electronically signed by: Sumit Schmid M.D. 05/02/2017 5:54 PM Dictated Date/Time: 05/02/2017 5:53 PM Laboratory Results 05/02/17 18:16 Red Blood Count 4.41, Mean Corpuscular Volume 88.4, Mean Corpuscular Hemoglobin 29.9, Mean Corpuscular Hemoglobin Concent 33.8, Mean Platelet Volume 8.8, Neutrophils (%) (Auto) 68.6, Lymphocytes (%) (Auto) 21.4, Monocytes (%) (Auto) 7.9, Eosinophils (%) (Auto) 1.5, Basophils (%) (Auto) 0.3, Neutrophils # (Auto) 5.13, Lymphocytes # (Auto) 1.60, Monocytes # (Auto) 0.59, Eosinophils # (Auto) 0.11, Basophils # (Auto) 0.02 05/02/17 18:10 Test 05/02/17 18:10 05/02/17 18:16 05/02/17 18:26 05/02/17 19:58 Anion Gap 7.0 mmol/L (3-11) Est Creatinine Clear Calc Drug Dose 19.1 ml/min Estimated GFR () 25.5 Estimated GFR (Non- 22.0 BUN/Creatinine Ratio 18.0 (10-20) Calcium Level 8.6 mg/dl (8.5-10.1) Total Bilirubin 0.7 mg/dl (0.2-1) Direct Bilirubin 0.2 mg/dl (0-0.2) Aspartate Amino Transf (AST/SGOT) 26 U/L (15-37) Alanine Aminotransferase (ALT/SGPT) 24 U/L (12-78) Alkaline Phosphatase 108 U/L (45-117) Troponin I 0.017 ng/ml (0-0.045) Total Protein 6.3 gm/dl (6.4-8.2) Albumin 2.9 gm/dl (3.4-5.0) Lipase 112 U/L (73-393) Thyroid Stimulating Hormone (TSH) 4.920 uIu/ml (0.300-4.500) White Blood Count 7.47 K/uL (4.8-10.8) Red Blood Count 4.41 M/uL (4.2-5.4) Hemoglobin 13.2 g/dL (12.0-16.0) Hematocrit 39.0 % (37-47) Mean Corpuscular Volume 88.4 fL (80-100) Mean Corpuscular Hemoglobin 29.9 pg (25-34) Mean Corpuscular Hemoglobin Concent 33.8 g/dl (32-36) Platelet Count 234 K/uL (130-400) Mean Platelet Volume 8.8 fL (7.4-10.4) Neutrophils (%) (Auto) 68.6 % Lymphocytes (%) (Auto) 21.4 % Monocytes (%) (Auto) 7.9 % Eosinophils (%) (Auto) 1.5 % Basophils (%) (Auto) 0.3 % Neutrophils # (Auto) 5.13 K/uL (1.4-6.5) Lymphocytes # (Auto) 1.60 K/uL (1.2-3.4) Monocytes # (Auto) 0.59 K/uL (0.11-0.59) Eosinophils # (Auto) 0.11 K/uL (0-0.5) Basophils # (Auto) 0.02 K/uL (0-0.2) RDW Standard Deviation 40.9 fL (36.4-46.3) RDW Coefficient of Variation 12.7 % (11.5-14.5) Immature Granulocyte % (Auto) 0.3 % Immature Granulocyte # (Auto) 0.02 K/uL (0.00-0.02) Prothrombin Time 11.6 SECONDS (9.0-12.0) Prothromb Time International Ratio 1.1 (0.9-1.1) Activated Partial Thromboplast Time 28.8 SECONDS (21.0-31.0) Partial Thromboplastin Ratio 1.1 Bedside Glucose 142 mg/dl (70-90) Urine Color YELLOW Urine Appearance CLEAR (CLEAR) Urine pH 5.5 (4.5-7.5) Urine Specific [place] 1.010 (1.000-1.030) Urine Protein 3+ (NEG) Urine Glucose (UA) NEG (NEG) Urine Ketones NEG (NEG) Urine Occult Blood NEG (NEG) Urine Nitrite NEG (NEG) Urine Bilirubin NEG (NEG) Urine Urobilinogen NEG (NEG) Urine Leukocyte Esterase NEG (NEG) Urine WBC (Auto) 1-5 /hpf (0-5) Urine RBC (Auto) 0-4 /hpf (0-4) Urine Hyaline Casts (Auto) 1-5 /lpf (0-5) Urine Epithelial Cells (Auto) 10-20 /lpf (0-5) Urine Bacteria (Auto) NEG (NEG) Laboratory studies as stated above per my review. Medications Administered Medications (Trade) Dose Ordered Sig/Leslee Route Start Time Stop Time Status Last Admin Dose Admin Ondansetron HCl (Zofran Inj) 4 mg NOW STAT IV 05/02/17 17:25 05/02/17 17:28 DC 05/02/17 18:22 4 MG Sodium Chloride 1,000 ml @ 999 mls/hr Q1H1M STAT IV 05/02/17 17:25 05/02/17 18:25 DC 05/02/17 18:22 999 MLS/HR Sodium Chloride 1,000 ml @ 150 mls/hr Q6H40M ONCE IV 05/02/17 17:25 05/02/17 23:13 DC 05/02/17 20:01 150 MLS/HR Ondansetron HCl (ZOFRAN ODT 4MG Home Pack) 1 homepack UD ONCE PO 05/02/17 21:45 05/02/17 21:46 DC 05/02/17 22:08 1 HOMEPACK ED Course 1717: Past medical records reviewed. The patient was evaluated in room C1B, and a complete history and physical examination were performed. 172: Ordered NSS 1000 ml @ 150 mls/hr IV, NSS 1000 ml @ 999 mls/hr IV, Zofran Inj 4 mg IV. 184: I reevaluated the patient and she is resting comfortably. She is going to CT. 2141: Upon reevaluation, the patient is resting comfortably. I discussed the results and treatment plan with her. She verbalized agreement of the treatment plan. The patient was discharged home. 2144: Ordered Ondansetron HCl 1 homepack PO. Medical Decision Differential diagnoses include dehydration, anemia, GI bleed, cardiac disease, CHF, infection, bowel obstruction. This patient comes in as described above. She was placed in room C1. She is here for concerns for dehydration. she's had nausea vomiting and diarrhea. Her abdomen is nontender .she has a history of having hernias but I do not see or feel any significant hernia is on exam there is no redness or warmth. She also gets frequent problems with her lungs and is on antibiotics as she had a cough recently that seems to gotten better show this urinary issues at times. Although she looks little pale hemoglobin was normal. She has no significant white count or fever to suggest infection. Chest x-ray was unremarkable, she has baseline renal insufficiency. She is feeling significantly better after recieving IV hydration and IV Zofran and she wants to go home. She may have had some blood in her stool at one point however she is guaiac-negative here. I think it is reasonable to discharge her. I discussed this with her son. She will be discharged home. She will return if: Worsening of symptoms, any new problems or concerns and follow up with her doctor. She's use Zofran for nausea as needed. Medication Reconcilliation Current Medication List: was personally reviewed by me Blood Pressure Screening Patient's blood pressure: Elevated blood pressure Blood pressure disposition: Referred to PCP Impression Primary Impression: Vomiting and diarrhea Additional Impression: DEHYDRATION Scribe Attestation The scribe's documentation has been prepared under my direction and personally reviewed by me in its entirety. I confirm that the note above accurately reflects all work, treatment, procedures, and medical decision making performed by me. Departure Information Dispostion Home / Self-Care Referrals Deion Downs M.D. (PCP) Forms HOME CARE DOCUMENTATION FORM, IMPORTANT VISIT INFORMATION, WORK / SCHOOL INSTRUCTIONS Patient Instructions My [facility] Additional Instructions Rest. Drink plenty of fluids. May use Zofran 4 mg every 6 hours as needed for nausea or vomiting Return if: Worseningof symptoms, fever chills, abdominal pain, not tolerating fluids, any new problems or concerns Follow-up with your doctor in 1-2 days for recheck Problem Qualifiers
--- NOTE | 2017-05-02 17:55 | DIAGNOSTIC IMAGING REPORT ---
SINGLE VIEW CHEST CLINICAL HISTORY: Atypical chest pain. FINDINGS: An AP, portable, upright chest radiograph is compared to chest x-ray and chest CT dated 11/21/2016. The examination is degraded by portable technique and patient rotation. A 2-lead cardiac pacemaker is unchanged in position and partially obscures the left mid chest. The patient is status post midline sternotomy. The heart is enlarged and there is atherosclerotic calcification of the thoracic aorta. The pulmonary vasculature is noncongested. Chronic interstitial thickening is similar to previous. No airspace consolidation or large pleural effusion is identified. There is minimal left basilar atelectasis. No pneumothorax is seen. The skeletal structures are osteopenic. Arthritic change is seen in the shoulders and thoracic spine. IMPRESSION: 1. Cardiomegaly and cardiac pacemaker. There is no radiographic evidence of congestive failure. 2. No airspace consolidation or large pleural effusion is identified. Electronically signed by: Sumit Schmid M.D. 05/02/2017 5:54 PM Dictated Date/Time: 05/02/2017 5:53 PM
[2017-05-02 18:33] LABS: INR 1.1 (0.9-1.1); PTT PATIENT 28.8 SECONDS (21.0-31.0)
[2017-05-02 18:34] LABS: BASO % 0.3 %; BASO ABS # 0.02 K/uL (0-0.2); EOS % 1.5 %; EOS ABS # 0.11 K/uL (0-0.5); HEMOGLOBIN 13.2 g/dL (12.0-16.0); IG# 0.02 K/uL (0.00-0.02); LYMPH % 21.4 %; MEAN CELL VOLUME 88.4 fL (80-100); MEAN CORPUSCULAR HEMOGLOBIN 29.9 pg (25-34); MEAN CORPUSCULAR HGB CONC 33.8 g/dl (32-36); MEAN PLATELET VOLUME 8.8 fL (7.4-10.4); MONO % 7.9 %; MONO ABS # 0.59 K/uL (0.11-0.59); NEUT % 68.6 %; NEUT ABS # 5.13 K/uL (1.4-6.5); PLATELET COUNT 234 K/uL (130-400); RED CELL DISTRIBUTION WIDTH CV 12.7 % (11.5-14.5); RED CELL DISTRIBUTION WIDTH SD 40.9 fL (36.4-46.3); WHITE BLOOD COUNT 7.47 K/uL (4.8-10.8)
[2017-05-02 18:46] LABS: CALCIUM 8.6 mg/dl (8.5-10.1)
[2017-05-02 19:00] LABS: ALBUMIN 2.9 gm/dl (3.4-5.0)
[2017-05-02 19:01] LABS: TOTAL PROTEIN 6.3 gm/dl (6.4-8.2)
[2017-05-02 19:03] LABS: POTASSIUM 4.4 mmol/L (3.5-5.1)
[2017-05-02 19:04] LABS: CREATININE 1.99 mg/dl (0.60-1.20)
--- NOTE | 2017-05-02 19:13 | DIAGNOSTIC IMAGING REPORT ---
ABD/PELVIS NO IV OR ORAL CONT CLINICAL HISTORY: 86 years-old Female presenting with eval for bowel obstruction, fever and vomiting. TECHNIQUE: Multidetector CT of the abdomen and pelvis was performed without the use of intravenous contrast. IV contrast: None. A dose lowering technique was used consistent with the principles of ALARA (as low as reasonably achievable). COMPARISON: 04/12/2016. CT DOSE (mGy.cm): The estimated cumulative dose is 698.34 mGycm. FINDINGS: Pbx Wire Chief topogram: Partially visualized pacer leads to the right atrium and right ventricular apex. Median sternotomy wires. Cholecystectomy clips. Bilateral lower extremity medial thigh surgical clips. Lung bases: Mild interlobular septal thickening. Multiple small solid pulmonary nodules noted in the lower lobes, the largest measuring 3 mm on the right (series 3 image 21) and 3 mm on the left (series 3 image 44). Top normal heart size. Partially visualized pacer leads. Coronary artery calcification. Mitral annular calcification. No pericardial or pleural effusion. Liver: Normal morphology. Normal density. Biliary: No gross biliary ductal dilatation allowing for noncontrast technique. Gallbladder surgically absent. Pancreas: Moderate parenchymal atrophy. Spleen: Parenchymal calcification could suggest prior granulomatous disease. Adrenal glands: Extensive thickening of the left adrenal gland as on prior exam. Less extensive thickening of the right adrenal gland. Kidneys and ureters: Chronic atrophy of the left kidney. Normal noncontrast appearance of the right renal parenchyma. No hydronephrosis. No nephrolithiasis. Mild urothelial thickening of the right ureter. Bladder: Normal. Pelvic organs: Uterus surgically absent. No adnexal masses. Bowel: Diverticulosis of the sigmoid colon. No bowel obstruction. Postsurgical changes of small bowel resection with an anastomosis noted in the superior pelvis. Hyperdense material at the level of the anastomosis could relate to prior contrast menstruation. No surrounding inflammatory changes. Peritoneal cavity: No free fluid or intraperitoneal gas. Lymph nodes: Multiple subcentimeter retroperitoneal lymph nodes, nonspecific. Vasculature: Atherosclerosis of the normal caliber abdominal aorta. IVC patent. Abdominal wall: Postsurgical changes of the ventral hernia repair with prosthetic mesh at the level of the umbilicus. No recurrent hernia. No associated fluid or inflammatory change. Postsurgical changes in the right inguinal region, which demonstrates significant interval decrease in associated fat stranding and fluid. Essentially unremarkable appearance of the surgical scar. A small fat-containing right femoral may be present, right greater than left. Musculoskeletal: Degenerative changes of the spine. IMPRESSION: 1. Significant interval decrease in inflammatory changes associated with the right inguinal region. 2. Postsurgical changes of ventral hernia repair with prosthetic mesh. 3. Small fat-containing femoral hernias, right greater than left. 4. Postsurgical changes of small bowel resection with a small bowel anastomosis. No bowel obstruction. 5. Diverticulosis. 6. Multiple small solid pulmonary nodules at the lung bases measuring up to 3 mm. These are unchanged from most recent prior. 7. No convincing evidence of acute intra-abdominal pathology. Electronically signed by: Deion Hernandez M.D. 05/02/2017 7:12 PM Dictated Date/Time: 05/02/2017 7:01 PM
[2017-05-02] MEDS ORDERED: ONDANSETRON HOME PACK 4MG OD TAB PO ONE (21:45)
[2017-05-02 22:15] VITALS: BP 131/69; PULSE 76; O2SAT 95
== END 2017-05-02 22:20 | disposition home or self-care (01) ==
LOC: C.EDB 16:09 → C.EDC 22:20
DX: E86.0 Dehydration (principal); R11.10 Vomiting, unspecified; R19.7 Diarrhea, unspecified; R50.9 Fever, unspecified; Z79.899 Other long term (current) drug therapy; E11.9 Type 2 diabetes mellitus without complications; Z98.61 Coronary angioplasty status; I48.91 Unspecified atrial fibrillation; R63.0 Anorexia; K57.90 Diverticulosis of intestine, part unspecified, without perforation or abscess without bleeding; R91.8 Other nonspecific abnormal finding of lung field; I51.7 Cardiomegaly; Z95.0 Presence of cardiac pacemaker

== ENCOUNTER 2017-05-07 17:50 | Emergency (ER) | payer OTHER, MEDICARE ==
[~2017-05-07] VITALS: Ht 160 cm; Wt 68.2 kg
[~2017-05-07 17:50] MED LIST changes: -BNC5 PO; -DOXY-300 PO; -GABA-112 PO; -LPT10 PO; -MCTP EXT; -OMEG12006 PO; -TRMCR130WC
[2017-05-07 18:00] VITALS: TEMP 36.8; Ht 160 cm; Wt 68.2 kg
--- NOTE | 2017-05-07 18:39 | DIAGNOSTIC IMAGING REPORT ---
L WRIST MIN 3 VIEWS ROUTINE, L FOREARM 2 VIEWS ROUTINE HISTORY: 86 years-old Female eval for fx acute left wrist and forearm pain without reported trauma COMPARISON: None available TECHNIQUE: 4 views of the left wrist and 2 views of the left forearm FINDINGS: WRIST: Bones are mildly demineralized. Chondrocalcinosis is seen within the region of the TFCC. Severe degenerative changes of the first carpal metacarpal joint with mild radiocarpal and triscaphe osteoarthritis. No acute fracture or subluxation identified. Mild soft tissue swelling circumferentially about the wrist. Subcortical cystic changes or subtle erosions are noted involving the ulnar styloid. FOREARM: Mild bone demineralization without acute fracture or subluxation. Mild soft tissue swelling about the distal forearm. Linear soft tissue calcifications are noted within the region of the distal biceps musculature adjacent to the radial tuberosity. IMPRESSION: 1. Mild bone demineralization without acute fracture or subluxation. 2. Degenerative changes as above including severe first carpometacarpal osteoarthritis. 3. Chondrocalcinosis within the region of the TFCC. 4. Mild soft tissue swelling about the wrist with suggested subtle erosions or subcortical cystic changes of the ulnar styloid. 5. Linear soft tissue calcifications adjacent to the radial tuberosity suggests enthesitis. The above report was generated using voice recognition software. It may contain grammatical, syntax or spelling errors. Electronically signed by: Ernesto Mitchell M.D. 05/07/2017 6:38 PM Dictated Date/Time: 05/07/2017 6:32 PM
[2017-05-07 19:27] VITALS: BP 151/71; PULSE 64; O2SAT 98
--- NOTE | 2017-05-07 19:45 | EMERGENCY ROOM VISIT NOTE ---
History Report prepared by Juan: [place] Under the Supervision of: Dr. Chris Mancera M.D. First contact with patient: 18:05 Chief Complaint: ARM PAIN Stated Complaint: LEFT ARM PAIN History of Present Illness The patient is a 86 year old female who presents to the Emergency Room with complaints of constant left lower arm pain beginning 1.5 days ago. She states that her pain began after she used her left arm to pull a heavy chair. She stated she felt a pop when this occurred. The patient's pain is worsened with movement of her wrist. She states that she can only move her fingers a small amount on her left hand. The patient was seen by her PCP for her symptoms just prior to arrival and was referred to the ED for further evaluation. Source of History: patient Onset: 1.5 days ago Position: arm (left lower) Timing: constant Modifying Factors (Worsening): movement (of wrist) Associated Symptoms: No numbness Review of Systems See HPI for pertinent positives & negatives. A total of 6 systems reviewed and were otherwise negative. Past Medical & Surgical Medical Problems: (1) Acute bronchitis with bronchiectasis (2) Acute exacerbation of CHF (congestive heart failure) (3) Atrial fibrillation (4) CHF (congestive heart failure) (5) Cough (6) DM (diabetes mellitus) (7) GERD (gastroesophageal reflux disease) (8) Pacemaker (9) PNA (pneumonia) (10) Renal failure (11) SBO (small bowel obstruction) Surgical Problems: (1) History of cardiac cath (2) S/P quintuple vessel bypass Family History Omitted secondary to age Social History Smoking Status: Never Smoker Alcohol Use: none Drug Use: none Marital Status: Housing Status: other Occupation Status: retired Current/Historical Medications Scheduled Albuterol Sulf (Albuterol Sulfate), 2.5 MG NEB Q4H Aspirin (Aspirin Ec), 81 MG PO QAM Cholecalciferol (Vitamin D3), 1,000 INTER.UNIT PO QAM Cranberry (Vaccinium Macrocarp (Cranberry), 1,000 MG PO BID Cyanocobalamin (Vitamin B12), 1,000 MCG PO QAM Diltiazem Hcl Extended Release (Diltiazem Hcl), 240 MG PO QAM Docusate Sodium (Docusate Sodium), 100 MG PO BID Escitalopram (Lexapro), 2.5 MG PO 1500 Ferrous Sulfate (Kp Ferrous Sulfate), 325 MG PO QAM Furosemide (Furosemide), 20 MG PO QAM Guaifenesin Ext Rel (Mucinex Ext Rel), 600 MG PO Q12 Hydroxyzine HCl (Hydroxyzine HCl), 25 MG PO HS Insulin Detemir (Levemir Flextouch), 32 UNIT SQ QAM Levothyroxine Sodium (Levothyroxine Sodium), 50 MCG PO QAM Loratadine (Claritin), 10 MG PO QAM Magnesium Oxide (Mag-Ox), 400 MG PO QAM Metoprolol Tartrate (Lopressor) (Lopressor), 100 MG PO BID Scheduled PRN Benzonatate (Tessalon Perles), 100 MG PO TID PRN for Cough Nitroglycerin (Nitrostat), 0.4 MG UT UD PRN for Chest Pain Allergies Coded Allergies: Fenofibrate (Verified Allergy, Intermediate, rash, 05/07/17) Amoxicillin (Verified Allergy, Unknown, UNKNOWN, 05/07/17) Aspartame (Unverified Allergy, Unknown, ., 05/07/17) Calcium Carbonate (Unverified Allergy, Unknown, ., 05/07/17) Ciprofloxacin (Unverified Allergy, Unknown, ., 05/07/17) Diphenhydramine (Unverified Allergy, Unknown, ., 05/07/17) Fexofenadine (Verified Allergy, Unknown, UNKNOWN, 05/07/17) Irbesartan (Verified Allergy, Unknown, UNKNOWN, 05/07/17) Lidocaine (Unverified Allergy, Unknown, ., 05/07/17) Niacin (Verified Allergy, Unknown, RASH, 05/07/17) Nystatin (Unverified Allergy, Unknown, ., 05/07/17) Penicillins (Verified Allergy, Unknown, UNKNOWN, 05/07/17) Sulfa Antibiotics (Verified Allergy, Unknown, UNKNOWN, 05/07/17) Tomato (Verified Allergy, Unknown, GI SYMPTOMS, 05/07/17) Flumazenil (Unverified Adverse Reaction, Intermediate, DELIRIUM, 05/07/17) anxious, increased heart rate, increased blood pressure Physical Exam Vital Signs Date Time Temp Pulse Resp B/P (MAP) Pulse Ox O2 Delivery O2 Flow Rate FiO2 05/07/17 19:27 64 20 151/71 98 05/07/17 18:00 36.8 60 18 163/65 97 Room Air Physical Exam Constitutional: Vital signs reviewed. Musculoskeletal: Ecchymosis to the volar aspect of the left wrist with tenderness in this area. Normal distal pulses. No evidence of shortening of the biceps tendon or deformity to the biceps. She is able to flex her fingers and wrist on the left side, although with significant pain. Integumentary: No cyanosis. Neurological: The patient is awake and alert. Psychiatric: Normal affect. Medical Decision & Procedures ER Provider Diagnostic Interpretation: Radiology results as stated below per my review and the radiologist's interpretation: L WRIST MIN 3 VIEWS ROUTINE, L FOREARM 2 VIEWS ROUTINE FINDINGS: WRIST: Bones are mildly demineralized. Chondrocalcinosis is seen within the region of the TFCC. Severe degenerative changes of the first carpal metacarpal joint with mild radiocarpal and triscaphe osteoarthritis. No acute fracture or subluxation identified. Mild soft tissue swelling circumferentially about the wrist. Subcortical cystic changes or subtle erosions are noted involving the ulnar styloid. FOREARM: Mild bone demineralization without acute fracture or subluxation. Mild soft tissue swelling about the distal forearm. Linear soft tissue calcifications are noted within the region of the distal biceps musculature adjacent to the radial tuberosity. IMPRESSION: 1. Mild bone demineralization without acute fracture or subluxation. 2. Degenerative changes as above including severe first carpometacarpal osteoarthritis. 3. Chondrocalcinosis within the region of the TFCC. 4. Mild soft tissue swelling about the wrist with suggested subtle erosions or subcortical cystic changes of the ulnar styloid. 5. Linear soft tissue calcifications adjacent to the radial tuberosity suggests enthesitis. The above report was generated using voice recognition software. It may contain grammatical, syntax or spelling errors. Electronically signed by: Ernesto Mitchell M.D. 05/07/2017 6:38 PM L WRIST MIN 3 VIEWS ROUTINE, L FOREARM 2 VIEWS ROUTINE FINDINGS: WRIST: Bones are mildly demineralized. Chondrocalcinosis is seen within the region of the TFCC. Severe degenerative changes of the first carpal metacarpal joint with mild radiocarpal and triscaphe osteoarthritis. No acute fracture or subluxation identified. Mild soft tissue swelling circumferentially about the wrist. Subcortical cystic changes or subtle erosions are noted involving the ulnar styloid. FOREARM: Mild bone demineralization without acute fracture or subluxation. Mild soft tissue swelling about the distal forearm. Linear soft tissue calcifications are noted within the region of the distal biceps musculature adjacent to the radial tuberosity. IMPRESSION: 1. Mild bone demineralization without acute fracture or subluxation. 2. Degenerative changes as above including severe first carpometacarpal osteoarthritis. 3. Chondrocalcinosis within the region of the TFCC. 4. Mild soft tissue swelling about the wrist with suggested subtle erosions or subcortical cystic changes of the ulnar styloid. 5. Linear soft tissue calcifications adjacent to the radial tuberosity suggests enthesitis. The above report was generated using voice recognition software. It may contain grammatical, syntax or spelling errors. Electronically signed by: Ernesto Mitchell M.D. 05/07/2017 6:38 PM ED Course 1808: The patient was evaluated in room D5. A complete history and physical exam was performed. 1850: Upon reevaluation, the patient is resting comfortably I discussed jarocho 's findings with her. She verbalized agreement of the treatment plan. She will be splinted. The patient was discharged home. Medical Decision This is an 86-year-old female who presents with a left upper extremity injury. Differential diagnosis includes tendon rupture, muscle tear, pathologic fracture , avulsion fracture. I did perform a limited focused review of portions of the patient's old chart on the electronic medical record. The patient was seen here on May 02 for vomiting and diarrhea. I did evaluate the patient as noted above. The patient was pulling a chair when she developed a pop in her wrist. She has ecchymosis and tenderness over the volar aspect of the left wrist. I was concerned about the possibility of a tendon rupture, specifically the palmaris longus. I did order and personally review the patient's x-rays as described above. No acute fractures were noted. I did discuss the x-rays with the patient. I did order a sugar tong splint and sling for the patient and recommended she follow-up with Dr. Paul or her own orthopedic doctor. I did have the showcase trimmer speak to her and try to help expedite getting an appointment. She was discharged in good condition. Medication Reconcilliation Current Medication List: was personally reviewed by me Blood Pressure Screening Patient's blood pressure: Elevated blood pressure Blood pressure disposition: Referred to PCP Impression Primary Impression: Injury of tendon of left upper extremity Scribe Attestation The scribe's documentation has been prepared under my direct and personally reviewed by me in its entirety. I confirm that the note above accurately reflects all work, treatment, procedures, and medical decision making performed by me. Departure Information Dispostion Home / Self-Care Referrals Deion Downs M.D. (PCP) Forms HOME CARE DOCUMENTATION FORM, IMPORTANT VISIT INFORMATION Patient Instructions My [facility] Additional Instructions You have been examined and treated today on an emergency basis only. This is not a substitute for, or an effort to provide, complete comprehensive medical care. It is impossible to recognize and treat all injuries or illnesses in a single emergency department visit. It is therefore important that you follow up closely with Dr. Paul of orthopedics. Call as soon as possible for an appointment. The showcase trimmer will attempt to help with an appointment. Return for worsening symptoms or if you develop numbness or weakness to your left hand or any other concerning symptoms. Problem Qualifiers Primary Impression: Injury of tendon of left upper extremity Encounter type: initial encounter Qualified Codes: S46.902A - Unspecified injury of unspecified muscle, fascia and tendon at shoulder and upper arm level , left arm, initial encounter
== END 2017-05-07 19:27 | disposition home or self-care (01) ==
LOC: C.EDB 17:51 → C.EDD 19:27
DX: S56.902A Unspecified injury of unspecified muscles, fascia and tendons at forearm level, left arm, initial encounter (principal); X50.0XXA Overexertion from strenuous movement or load, initial encounter; I50.9 Heart failure, unspecified; I48.91 Unspecified atrial fibrillation; E11.9 Type 2 diabetes mellitus without complications; K21.9 Gastro-esophageal reflux disease without esophagitis; Z95.0 Presence of cardiac pacemaker; Z87.01 Personal history of pneumonia (recurrent); Z79.82 Long term (current) use of aspirin; Z79.899 Other long term (current) drug therapy; Z88.1 Allergy status to other antibiotic agents; Z88.2 Allergy status to sulfonamides; Z91.018 Allergy to other foods; Z88.6 Allergy status to analgesic agent; Z88.8 Allergy status to other drugs, medicaments and biological substances

== ENCOUNTER → 2017-06-04 | Outpatient (CLI) | payer OTHER, MEDICARE ==
[2017-06-04 12:32] LABS: BASO % 0.3 %; BASO ABS # 0.02 K/uL (0-0.2); EOS % 3.4 %; EOS ABS # 0.25 K/uL (0-0.5); HEMATOCRIT 36.1 % (37-47); IG# 0.02 K/uL (0.00-0.02); LYMPH % 22.7 %; LYMPH ABS # 1.68 K/uL (1.2-3.4); MEAN CELL VOLUME 86.8 fL (80-100); MEAN CORPUSCULAR HEMOGLOBIN 28.8 pg (25-34); MEAN CORPUSCULAR HGB CONC 33.2 g/dl (32-36); MEAN PLATELET VOLUME 8.4 fL (7.4-10.4); MONO % 7.6 %; MONO ABS # 0.56 K/uL (0.11-0.59); NEUT % 65.7 %; NEUT ABS # 4.86 K/uL (1.4-6.5); PLATELET COUNT 290 K/uL (130-400); RED CELL DISTRIBUTION WIDTH CV 13.4 % (11.5-14.5); WHITE BLOOD COUNT 7.39 K/uL (4.8-10.8)
[2017-06-04 12:51] LABS: HEMOGLOBIN A1C 7.4 % (4.5-5.6)
[2017-06-04 13:05] LABS: URIC ACID 5.7 mg/dl (2.6-7.2)
[2017-06-04 13:45] LABS: CREATININE RANDOM URINE 59.7 mg/dl
== END | disposition home or self-care (01) ==
LOC: C.LABPBG 08:42
PROVIDERS: ATTEND Internal Medicine Nephrology
DX: N18.3 Chronic kidney disease, stage 3 (moderate) (principal); E11.22 Type 2 diabetes mellitus with diabetic chronic kidney disease; I10 Essential (primary) hypertension; E78.5 Hyperlipidemia, unspecified; E55.9 Vitamin D deficiency, unspecified; E16.2 Hypoglycemia, unspecified; E03.9 Hypothyroidism, unspecified; D64.9 Anemia, unspecified

== ENCOUNTER 2017-06-25 14:05 | Inpatient (IN) | payer OTHER, MEDICARE ==
[~2017-06-25] VITALS: Ht 160 cm; Wt 70.6 kg
[2017-06-25] MEDS ORDERED: ASPIRIN 324 MG CHEW PO STA (14:20)
[2017-06-25] MEDS ORDERED: ACETAMINOPHEN 325 MG TAB PO STA (14:20)
--- NOTE | 2017-06-25 14:24 | EMERGENCY ROOM VISIT NOTE ---
History Report prepared by Juan: Edmund Forte Under the Supervision of: Dr. Kemar Marino M.D. First contact with patient: 14:09 History of Present Illness The patient is an 87 year old white female with a past medical history of a bypass and pacemaker placement who presents to the ED with a cc of episodes of chest pain beginning around 4 hours ago. Positive worsening shortness of breath , back pain, weakness, feeling hot, loose stool, worsening leg swelling, decreased urinary frequency. Negative nausea, vomiting, abdominal pain, recent weight gain. She states that the chest pain is located in the middle, and it came on gradually this morning. She notes that the pain shot through into her back. She describes it as a dull pain. The patient states that she called her nurse, and was told to take 1 Nitro, which relieved her pain. She notes that the pain is currently coming back a bit. She says that she takes a baby Aspirin each morning. The patient states that she has been having worsening breathing difficulties today, and it is worse when laying flat. 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 The patient did take her Metoprolol this morning. The patient notes that she has chronic left greater than right lower extremity swelling secondary to broken leg. Source of History: patient, nursing staff Onset: 4 hours ago Position: chest Quality: dull Timing: other (episodes) Modifying Factors (Relieving): other (Nitro) Associated Symptoms: + SOB, + back pain, + urinary symptoms, + weakness, No nausea, No vomiting, No abdominal pain Note: Positive loose stools, feeling hot. Review of Systems See HPI for pertinent positives and negatives. A total of ten systems were reviewed and were otherwise negative. Past Medical & Surgical Medical Problems: (1) Acute bronchitis with bronchiectasis (2) Acute exacerbation of CHF (congestive heart failure) (3) Atrial fibrillation (4) CHF (congestive heart failure) (5) Cough (6) DM (diabetes mellitus) (7) GERD (gastroesophageal reflux disease) (8) Pacemaker (9) PNA (pneumonia) (10) Renal failure (11) SBO (small bowel obstruction) Surgical Problems: (1) History of cardiac cath (2) S/P quintuple vessel bypass Family History Omitted secondary to age Social History Smoking Status: Never Smoker Alcohol Use: none Drug Use: none Marital Status: Housing Status: other Occupation Status: retired Current/Historical Medications Scheduled Albuterol Sulf (Albuterol Sulfate), 2.5 MG NEB Q4H Aspirin (Aspirin Ec), 81 MG PO QAM Budesonide/Formoterol Fumarate (Symbicort 160/4.5 Inhaler ), 2 PUFFS INH BID Cholecalciferol (Vitamin D3), 1,000 INTER.UNIT PO QAM Cranberry (Vaccinium Macrocarp (Cranberry), 1,000 MG PO BID Cyanocobalamin (Vitamin B12), 1,000 MCG PO QAM Diltiazem Hcl Extended Release (Diltiazem Hcl), 240 MG PO QAM Docusate Sodium (Docusate Sodium), 100 MG PO BID Escitalopram (Lexapro), 5 MG PO DAILY Ferrous Sulfate (Kp Ferrous Sulfate), 325 MG PO QAM Furosemide (Furosemide), 40 MG PO QAM Insulin Glargine (Lantus Solostar), 20 UNITS SC QAM Insulin Glargine (Lantus Solostar), 10 UNITS SC QPM Lansoprazole (Prevacid), 30 MG PO DAILY Levothyroxine Sodium (Levothyroxine Sodium), 50 MCG PO QAM Loratadine (Claritin), 10 MG PO QAM Lorazepam (Ativan), 0.5 MG PO BID Magnesium Oxide (Mag-Ox), 400 MG PO QAM Metoprolol Tartrate (Lopressor) (Lopressor), 100 MG PO BID Mometasone Furoate (Nasal) (Mometasone Furoate), 2 SPRAYS NA DAILY Scheduled PRN Nitroglycerin (Nitrostat), 0.4 MG UT UD PRN for Chest Pain Allergies Coded Allergies: Fenofibrate (Verified Allergy, Intermediate, rash, 05/07/17) Amoxicillin (Verified Allergy, Unknown, UNKNOWN, 05/07/17) Aspartame (Unverified Allergy, Unknown, ., 05/07/17) Calcium Carbonate (Unverified Allergy, Unknown, ., 05/07/17) Ciprofloxacin (Unverified Allergy, Unknown, ., 05/07/17) Diphenhydramine (Unverified Allergy, Unknown, ., 05/07/17) Fexofenadine (Verified Allergy, Unknown, UNKNOWN, 05/07/17) Irbesartan (Verified Allergy, Unknown, UNKNOWN, 05/07/17) Lidocaine (Unverified Allergy, Unknown, ., 05/07/17) Niacin (Verified Allergy, Unknown, RASH, 05/07/17) Nystatin (Unverified Allergy, Unknown, ., 05/07/17) Penicillins (Verified Allergy, Unknown, UNKNOWN, 05/07/17) Sulfa Antibiotics (Verified Allergy, Unknown, UNKNOWN, 05/07/17) Tomato (Verified Allergy, Unknown, GI SYMPTOMS, 05/07/17) Flumazenil (Unverified Adverse Reaction, Intermediate, DELIRIUM, 05/07/17) anxious, increased heart rate, increased blood pressure Physical Exam Vital Signs Date Time Temp Pulse Resp B/P (MAP) Pulse Ox O2 Delivery O2 Flow Rate FiO2 06/25/17 16:05 60 20 149/71 100 Nasal Cannula 4.0 06/25/17 15:06 60 132/60 06/25/17 14:50 60 12 06/25/17 14:45 60 22 100 06/25/17 14:40 60 24 100 06/25/17 14:35 60 18 100 06/25/17 14:33 140/84 150/60 06/25/17 14:31 152/60 06/25/17 14:30 62 21 100 06/25/17 14:25 60 13 100 06/25/17 14:24 100 Nasal Cannula 4.0 06/25/17 14:23 97 Room Air 06/25/17 14:21 36.9 61 18 157/72 97 Room Air 06/25/17 14:20 60 18 96 06/25/17 14:18 96 Room Air 06/25/17 14:16 65 06/25/17 14:15 60 23 98 06/25/17 14:11 157/72 Physical Exam GENERAL: Awake, alert, well-appearing, NAD HENT: Normocephalic, atraumatic. EYES: Normal conjunctiva. Sclera non-icteric. NECK: Supple. No nuchal rigidity. FROM. RESPIRATORY: CTAB, no rhonchi, wheezing, crackles CARDIAC: Device in left chest, midline sternotomy scar. RRR, no MRG ABDOMEN: Soft, NTND, BS+ MSK: No chest wall TTP. 2+ LLE edema. Trace to 1+ RLE edema. NEURO: GCS 15, CN 2-12 intact, moves all 4s on command SKIN: No rash or jaundice noted. Medical Decision & Procedures ER Provider Diagnostic Interpretation: X-ray: Per my interpretation, radiologist review. CHEST ONE VIEW PORTABLE CLINICAL HISTORY: Atypical chest pain COMPARISON STUDY: April 2017 FINDINGS: The heart is mildly enlarged. There are postsurgical changes of a midline sternotomy. As a left subclavian dual-chamber central venous pacemaker. There is mild chronic interstitial thickening. There is no lobar consolidation. There is no overt failure. There are no pleural effusions.[ A right medial apical opacity, likely represents a summation with vascular markings. No mass was visualized in this location on an October 2016 CT scan. IMPRESSION: 1. Mild cardiomegaly 2. No evidence of failure. No evidence of focal pulmonary consolidation 3. Right apical opacity, likely representing a summation Electronically signed by: Florian Lua M.D. 06/25/2017 2:37 PM Dictated Date/Time: 06/25/2017 2:35 PM Laboratory Results 06/25/17 15:15 Red Blood Count 3.88, Mean Corpuscular Volume 88.1, Mean Corpuscular Hemoglobin 28.9, Mean Corpuscular Hemoglobin Concent 32.7, Mean Platelet Volume 9.1, Neutrophils (%) (Auto) 70.3, Lymphocytes (%) (Auto) 20.7, Monocytes (%) (Auto) 7.4, Eosinophils (%) (Auto) 1.3, Basophils (%) (Auto) 0.1, Neutrophils # (Auto) 5.82, Lymphocytes # (Auto) 1.71, Monocytes # (Auto) 0.61, Eosinophils # (Auto) 0.11, Basophils # (Auto) 0.01 06/25/17 15:15 Test 06/25/17 15:15 06/25/17 15:25 White Blood Count 8.28 K/uL (4.8-10.8) Red Blood Count 3.88 M/uL (4.2-5.4) Hemoglobin 11.2 g/dL (12.0-16.0) Hematocrit 34.2 % (37-47) Mean Corpuscular Volume 88.1 fL (80-100) Mean Corpuscular Hemoglobin 28.9 pg (25-34) Mean Corpuscular Hemoglobin Concent 32.7 g/dl (32-36) Platelet Count 232 K/uL (130-400) Mean Platelet Volume 9.1 fL (7.4-10.4) Neutrophils (%) (Auto) 70.3 % Lymphocytes (%) (Auto) 20.7 % Monocytes (%) (Auto) 7.4 % Eosinophils (%) (Auto) 1.3 % Basophils (%) (Auto) 0.1 % Neutrophils # (Auto) 5.82 K/uL (1.4-6.5) Lymphocytes # (Auto) 1.71 K/uL (1.2-3.4) Monocytes # (Auto) 0.61 K/uL (0.11-0.59) Eosinophils # (Auto) 0.11 K/uL (0-0.5) Basophils # (Auto) 0.01 K/uL (0-0.2) RDW Standard Deviation 44.1 fL (36.4-46.3) RDW Coefficient of Variation 13.7 % (11.5-14.5) Immature Granulocyte % (Auto) 0.2 % Immature Granulocyte # (Auto) 0.02 K/uL (0.00-0.02) Prothrombin Time 10.4 SECONDS (9.0-12.0) Prothromb Time International Ratio 1.0 (0.9-1.1) Activated Partial Thromboplast Time 25.9 SECONDS (21.0-31.0) Partial Thromboplastin Ratio 1.0 Est Creatinine Clear Calc Drug Dose 17.1 ml/min Estimated GFR () 21.6 Estimated GFR (Non- 18.7 BUN/Creatinine Ratio 23.6 (10-20) Calcium Level 8.1 mg/dl (8.5-10.1) Phosphorus Level 5.1 mg/dl (2.5-4.9) Magnesium Level 2.2 mg/dl (1.8-2.4) Total Bilirubin 0.4 mg/dl (0.2-1) Direct Bilirubin < 0.1 mg/dl (0-0.2) Aspartate Amino Transf (AST/SGOT) 36 U/L (15-37) Alanine Aminotransferase (ALT/SGPT) 51 U/L (12-78) Alkaline Phosphatase 121 U/L (45-117) Pro-B-Type Natriuretic Peptide > 40821 pg/ml (0-1800) Total Protein 6.3 gm/dl (6.4-8.2) Albumin 3.0 gm/dl (3.4-5.0) Lipase 127 U/L (73-393) Bedside Hemoglobin 11.9 g/dl (12.0-16.0) Bedside Hematocrit 35 % (37-47) Bedside Sodium 129 mEq/L (135-144) Bedside Potassium 5.3 mEq/L (3.3-5.0) Bedside Chloride 97 mEq/L (101-112) Bedside Total CO2 24 mEq/l (24-31) Anion Gap 14.0 mmol/L (16-25) Bedside Blood Urea Nitrogen 56 mg/dl (7-18) Bedside Creatinine 2.5 mg/dl (0.6-1.3) Bedside Glucose (other) 195 mg/dl (70-99) Bedside Ionized Calcium (Josie) 1.10 mmol/l (1.12-1.32) Laboratory results reviewed by me Medications Administered Medications (Trade) Dose Ordered Sig/Leslee Route Start Time Stop Time Status Last Admin Dose Admin Nitroglycerin (Nitrostat Tab) 0.4 mg Q5M PRN SL 06/25/17 14:30 07/25/17 14:29 06/25/17 14:54 0.4 MG Aspirin (Aspirin Chew) 243 mg NOW STAT PO 06/25/17 14:20 06/25/17 14:23 DC 06/25/17 14:53 243 MG Acetaminophen (Tylenol Tab) 650 mg NOW STAT PO 06/25/17 14:20 06/25/17 14:23 DC 06/25/17 14:53 650 MG ECG Per My Interpretation Indication: chest pain Rate (beats per minute): 60 Rhythm: other (a-paced) Findings: LBBB, T-wave inversion (lateral and high lateral leads), other (wide qrs) Comparison ECG Date: compared to Nov 21 2016, twi and depressions in lateral leads are new ED Course 1411: The patient was evaluated in room C3. A complete history and physical exam was performed. 1555: Upon reexamination, the patient was resting, and her troponin is 0.02. I discussed the test results and treatment plan with her. She expressed understanding and agreement. The patient will be evaluated for further management. 1608: Discussed the patient's case with Jeyson SANDERS. The patient will be evaluated for further treatment and disposition. Medical Decision Nursing notes reviewed. Ancillary studies and prior records reviewed. The patient is an 87 year old white female with a past medical history of a bypass and pacemaker placement who presents to the ED with a cc of episodes of chest pain beginning around 4 hours ago. Positive worsening shortness of breath , back pain, feeling hot, loose stool, leg swelling, decreased urinary frequency. Negative nausea, vomiting, abdominal pain, recent weight gain. Differential diagnosis: Etiologies such as cardiac ischemia, aortic dissection, pulmonary embolism, pneumonia, pneumothorax, musculoskeletal, infections, pericarditis, myocarditis , esophageal rupture, gastrointestinal, as well as others were entertained. Patient was seen and evaluated the bedside. Patient did complain of some chest pains. Of note the patient has had bypass 5. 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 Patient taken nitro with improvement of her symptoms. Patient did take a baby aspirin along with all of her morning medications. Patient has noted some progressive worsening generalized weakness as well as shortness of breath. The shortness of breath is been ongoing for about a month to month and a half. She notes that she has some orthopnea and some increased lower extremity swelling. She has increased her diuretics from 20 mg daily to 40 mg daily of Lasix. Patient did have blood work completed, EKG, troponin, chest x-ray, BNP. Patient was given the additional aspirin to make a full dose aspirin. The patient was also ordered sublingual nitro as needed for chest pains. Patient's EKG did show a left bundle branch block and atrial paced rhythm. Patient does have new T-wave inversions in just the lateral leads. She does have T-wave inversions in the high lateral which are old. Left bundle-branch is old also. Patient's blood work showed a normal white blood cell count. Patient does have chronic but stable anemia. Patient does have mildly worsening CKD. This may be related to some concomitant failure given the patient's physical exam. The patient's chest x-ray is otherwise clear. I discussed with the hospitalist and will defer at this time as Lasix may improve her AK I given possible concomitant failure in light of physical exam and elevated BNP. Patient's troponin was 0.02. Patient chest pain improved. I did discuss the patient with the hospitalist who agreed to further evaluate and treat the patient. Medication Reconcilliation Current Medication List: was personally reviewed by me Blood Pressure Screening Patient's blood pressure: Elevated blood pressure Referred to hospitalist. Consults Time Called: 1605 Consulting Physician: Jeyson SANDERS Returned Call: 1608 Discussed the patient's case with Jeyson SANDERS. The patient will be evaluated for further treatment and disposition. Impression Primary Impression: Atypical chest pain Additional Impressions: EKG, abnormal CKD (chronic kidney disease) Hyponatremia Anemia Scribe Attestation The scribe's documentation has been prepared under my direction and personally reviewed by me in its entirety. I confirm that the note above accurately reflects all work, treatment, procedures, and medical decision making performed by me. Departure Information Dispostion Being Evaluated By Hospitalist Referrals Deion Downs M.D. (PCP) Problem Qualifiers Additional Impressions: CKD (chronic kidney disease) Chronic kidney disease stage: stage 4 (severe) Qualified Codes: N18.4 - Chronic kidney disease, stage 4 (severe) Anemia Anemia type: unspecified type Qualified Codes: D64.9 - Anemia, unspecified
[2017-06-25] MEDS ORDERED: FENTANYL CITRATE INJ 50 MCG/1 ML 2 ML VIAL IV ONE (14:30)
[2017-06-25] MEDS ORDERED: NITROGLYCERIN 0.4 MG SL PER TAB CHARGE SL PRN (14:30)
[2017-06-25] MEDS ORDERED: LANS30CA12 PO (14:32)
[2017-06-25] MEDS ORDERED: SYMIN160 INH (14:32)
[2017-06-25] MEDS ORDERED: INSDGIPEN SC ×2 (14:32)
[2017-06-25] MEDS ORDERED: MOME6000 (14:32)
[2017-06-25] MEDS ORDERED: LORA-741 PO (14:33)
--- NOTE | 2017-06-25 14:38 | DIAGNOSTIC IMAGING REPORT ---
CHEST ONE VIEW PORTABLE CLINICAL HISTORY: Atypical chest pain COMPARISON STUDY: April 2017 FINDINGS: The heart is mildly enlarged. There are postsurgical changes of a midline sternotomy. As a left subclavian dual-chamber central venous pacemaker. There is mild chronic interstitial thickening. There is no lobar consolidation. There is no overt failure. There are no pleural effusions.[ A right medial apical opacity, likely represents a summation with vascular markings. No mass was visualized in this location on an October 2016 CT scan. IMPRESSION: 1. Mild cardiomegaly 2. No evidence of failure. No evidence of focal pulmonary consolidation 3. Right apical opacity, likely representing a summation Electronically signed by: Florian Lua M.D. 06/25/2017 2:37 PM Dictated Date/Time: 06/25/2017 2:35 PM
[2017-06-25 15:37] LABS: ISTAT CREATININE 2.5 mg/dl (0.6-1.3); ISTAT IONIZED CALCIUM 1.1 mmol/l (1.12-1.32); ISTAT POTASSIUM 5.3 mEq/L (3.3-5.0)
[2017-06-25 15:43] LABS: PTT PATIENT 25.9 SECONDS (21.0-31.0)
[2017-06-25 16:01] LABS: ALT/SGPT 51 U/L (12-78); AST/SGOT 36 U/L (15-37); BLOOD UREA NITROGEN 54 mg/dl (7-18); CALCIUM 8.1 mg/dl (8.5-10.1); CARBON DIOXIDE 21 mmol/L (21-32); CREATININE 2.27 mg/dl (0.60-1.20); GLUCOSE 189 mg/dl (70-99); LIPASE 127 U/L (73-393); SODIUM 128 mmol/L (136-145)
[2017-06-25 16:03] LABS: ALKALINE PHOSPHATASE 121 U/L (45-117); PHOSPHORUS 5.1 mg/dl (2.5-4.9); TOTAL PROTEIN 6.3 gm/dl (6.4-8.2)
[2017-06-25 16:07] LABS: BASO % 0.1 %; BASO ABS # 0.01 K/uL (0-0.2); EOS % 1.3 %; EOS ABS # 0.11 K/uL (0-0.5); HEMATOCRIT 34.2 % (37-47); HEMOGLOBIN 11.2 g/dL (12.0-16.0); IG# 0.02 K/uL (0.00-0.02); LYMPH % 20.7 %; LYMPH ABS # 1.71 K/uL (1.2-3.4); MEAN CELL VOLUME 88.1 fL (80-100); MEAN CORPUSCULAR HEMOGLOBIN 28.9 pg (25-34); MEAN CORPUSCULAR HGB CONC 32.7 g/dl (32-36); MEAN PLATELET VOLUME 9.1 fL (7.4-10.4); MONO % 7.4 %; MONO ABS # 0.61 K/uL (0.11-0.59); NEUT % 70.3 %; NEUT ABS # 5.82 K/uL (1.4-6.5); PLATELET COUNT 232 K/uL (130-400); RED CELL DISTRIBUTION WIDTH CV 13.7 % (11.5-14.5); RED CELL DISTRIBUTION WIDTH SD 44.1 fL (36.4-46.3); WHITE BLOOD COUNT 8.28 K/uL (4.8-10.8)
[2017-06-25] MEDS ORDERED: NITROGLYCERIN 0.4 MG SL PER TAB CHARGE UT PRN (17:15)
[2017-06-25] MEDS ORDERED: MoRPHine SULFATE 2 MG/ML CARP IV PRN (17:30)
--- NOTE | 2017-06-25 17:44 | History and Physical ---
History & Physical Date & Time of Service: Jun 25, 2017 at 16:26 Chief Complaint: Chest Pain Primary Care Physician: Deion Downs M.D. History of Present Illness Source: patient Ms. Gil is here for sob for about three weeks, today was much worse though with bedoya when she ambulated to the bathroom. She had chest pain upon returning from getting up to the bathroom with sharp pain in the center of her chest that radiated to her neck. She felt too sick to eat lunch after her appt with her manager electronic. She continued to feel worse and was unable to walk off the bus when she got back home so the nurse at her facility called EMS. She has been coughing for months with some white sputum. She is not able to sleep flat at baseline. She also has persistent right neck pain but is not sure if she has had any spine problems. She does not normally wear oxygen at home but currently requires 4L NC. She has felt chills lately, but no fevers. She was incontinent of diarrhea twice this morning. Six months ago she had diarrhea so bad she lost 10 pounds and it persisted for a month. She has also had urinary frequency. She has been seeing a global manager due to her worsening kidney function and has had her lasix held and re-dosed a couple of times in the past month or so. ROS Constitutional: see HPI Respiratory: see HPI Cardiac: no palpitations, edema, orthopnea or lightheadedness GI: see HPI : no dysuria or hesitancy Extremities: no joint pain or weakness Skin: no rash All other systems reviewed and negative Pmhx: stent x 1, CABG, CHF, pacer, CKD II/IV, DMII, pulmonary hypertension, COPD Past Medical/Surgical History Medical Problems: (1) Acute bronchitis (2) Acute bronchitis with bronchiectasis (3) Acute exacerbation of CHF (congestive heart failure) (4) Acute kidney injury (5) Altered mental status (6) Anxiety (7) Atrial fibrillation (8) Bladder outflow obstruction (9) Bronchitis (10) Chest pain (11) Chest pain (12) Chest pain (13) CHF (congestive heart failure) (14) CHF (congestive heart failure) (15) Cough (16) Degenerative disc disease, cervical (17) Dizziness (18) DM (diabetes mellitus) (19) E86.0 (20) Edema (21) Elevated transaminase level (22) Epistaxis (23) GERD (gastroesophageal reflux disease) (24) Headache (25) Hemorrhage at injection site (26) Hyperglycemia (27) Hyperglycemia due to type 2 diabetes mellitus (28) Hypertension (29) Hypothyroidism (acquired) (30) Incarcerated right inguinal hernia (31) Injury of tendon of left upper extremity (32) Left leg cellulitis (33) Leukocytosis (34) Pacemaker (35) PNA (pneumonia) (36) Pneumonia (37) Pneumonitis (38) Pneumonitis (39) Renal failure (40) Renal insufficiency (41) Respiratory distress (42) SBO (small bowel obstruction) (43) Small bowel obstruction (44) SOB (shortness of breath) (45) SOB (shortness of breath) (46) UTI (urinary tract infection) (47) Vomiting and diarrhea (48) Weakness Surgical Problems: (1) History of cardiac cath (2) S/P quintuple vessel bypass Family History Omitted secondary to age non contributory Social History Smoking Status: Never Smoker Smokeless Tobacco Use: No Alcohol Use: none Drug Use: none Marital Status: Housing status: assisted living ([facility]) Occupational Status: retired Allergies Coded Allergies: Fenofibrate (Verified Allergy, Intermediate, rash, 05/07/17) Amoxicillin (Verified Allergy, Unknown, UNKNOWN, 05/07/17) Aspartame (Unverified Allergy, Unknown, ., 05/07/17) Calcium Carbonate (Unverified Allergy, Unknown, ., 05/07/17) Ciprofloxacin (Unverified Allergy, Unknown, ., 05/07/17) Diphenhydramine (Unverified Allergy, Unknown, ., 05/07/17) Fexofenadine (Verified Allergy, Unknown, UNKNOWN, 05/07/17) Irbesartan (Verified Allergy, Unknown, UNKNOWN, 05/07/17) Lidocaine (Unverified Allergy, Unknown, ., 05/07/17) Niacin (Verified Allergy, Unknown, RASH, 05/07/17) Nystatin (Unverified Allergy, Unknown, ., 05/07/17) Penicillins (Verified Allergy, Unknown, UNKNOWN, 05/07/17) Sulfa Antibiotics (Verified Allergy, Unknown, UNKNOWN, 05/07/17) Tomato (Verified Allergy, Unknown, GI SYMPTOMS, 05/07/17) Flumazenil (Unverified Adverse Reaction, Intermediate, DELIRIUM, 05/07/17) anxious, increased heart rate, increased blood pressure Home Medications Scheduled Albuterol Sulf (Albuterol Sulfate), 2.5 MG NEB Q4H Aspirin (Aspirin Ec), 81 MG PO QAM Budesonide/Formoterol Fumarate (Symbicort 160/4.5 Inhaler ), 2 PUFFS INH BID Cholecalciferol (Vitamin D3), 1,000 INTER.UNIT PO QAM Cranberry (Vaccinium Macrocarp (Cranberry), 1,000 MG PO BID Cyanocobalamin (Vitamin B12), 1,000 MCG PO QAM Diltiazem Hcl Extended Release (Diltiazem Hcl), 240 MG PO QAM Docusate Sodium (Docusate Sodium), 100 MG PO BID Escitalopram (Lexapro), 5 MG PO DAILY Ferrous Sulfate (Kp Ferrous Sulfate), 325 MG PO QAM Furosemide (Furosemide), 40 MG PO QAM Insulin Glargine (Lantus Solostar), 20 UNITS SC QAM Insulin Glargine (Lantus Solostar), 10 UNITS SC QPM Lansoprazole (Prevacid), 30 MG PO DAILY Levothyroxine Sodium (Levothyroxine Sodium), 50 MCG PO QAM Loratadine (Claritin), 10 MG PO QAM Lorazepam (Ativan), 0.5 MG PO BID Magnesium Oxide (Mag-Ox), 400 MG PO QAM Metoprolol Tartrate (Lopressor) (Lopressor), 100 MG PO BID Mometasone Furoate (Nasal) (Mometasone Furoate), 2 SPRAYS NA DAILY Scheduled PRN Nitroglycerin (Nitrostat), 0.4 MG UT UD PRN for Chest Pain Physical Exam Vital Signs Date Time Temp Pulse Resp B/P (MAP) Pulse Ox O2 Delivery O2 Flow Rate FiO2 06/25/17 16:05 60 20 149/71 100 Nasal Cannula 4.0 06/25/17 15:06 60 132/60 06/25/17 14:50 60 12 06/25/17 14:45 60 22 100 06/25/17 14:40 60 24 100 06/25/17 14:35 60 18 100 06/25/17 14:33 140/84 150/60 06/25/17 14:31 152/60 06/25/17 14:30 62 21 100 06/25/17 14:25 60 13 100 06/25/17 14:24 100 Nasal Cannula 4.0 06/25/17 14:23 97 Room Air 06/25/17 14:21 36.9 61 18 157/72 97 Room Air 06/25/17 14:20 60 18 96 06/25/17 14:18 96 Room Air 06/25/17 14:16 65 06/25/17 14:15 60 23 98 06/25/17 14:11 157/72 General: no distress Eyes: normal inspection, PERLL Respiratory: chest non tender, clear to auscultation, normal breath sounds, no respiratory distress, no accessory muscle use Cardiac: regular rate and rhythm, no rub or gallop, no murmur, +2 pitting edema , no jvd GI/: active bowel sounds, no abd pain or tenderness, soft, non distended Extremities: normal range of motion, normal strength, non tender Neuro/Psych: alert and oriented x 3, normal mood and affect Skin: normal color, dry Diagnostics Laboratory Results Results Past 24 Hours Test 06/25/17 15:15 06/25/17 15:25 Range/Units White Blood Count 8.28 4.8-10.8 K/uL Red Blood Count 3.88 4.2-5.4 M/uL Hemoglobin 11.2 12.0-16.0 g/dL Hematocrit 34.2 37-47 % Mean Corpuscular Volume 88.1 80-100 fL Mean Corpuscular Hemoglobin 28.9 25-34 pg Mean Corpuscular Hemoglobin Concent 32.7 32-36 g/dl Platelet Count 232 130-400 K/uL Mean Platelet Volume 9.1 7.4-10.4 fL Neutrophils (%) (Auto) 70.3 % Lymphocytes (%) (Auto) 20.7 % Monocytes (%) (Auto) 7.4 % Eosinophils (%) (Auto) 1.3 % Basophils (%) (Auto) 0.1 % Neutrophils # (Auto) 5.82 1.4-6.5 K/uL Lymphocytes # (Auto) 1.71 1.2-3.4 K/uL Monocytes # (Auto) 0.61 0.11-0.59 K/uL Eosinophils # (Auto) 0.11 0-0.5 K/uL Basophils # (Auto) 0.01 0-0.2 K/uL RDW Standard Deviation 44.1 36.4-46.3 fL RDW Coefficient of Variation 13.7 11.5-14.5 % Immature Granulocyte % (Auto) 0.2 % Immature Granulocyte # (Auto) 0.02 0.00-0.02 K/uL Prothrombin Time 10.4 9.0-12.0 SECONDS Prothromb Time International Ratio 1.0 0.9-1.1 Activated Partial Thromboplast Time 25.9 21.0-31.0 SECONDS Partial Thromboplastin Ratio 1.0 Sodium Level 128 136-145 mmol/L Potassium Level 5.0 3.5-5.1 mmol/L Chloride Level 98 98-107 mmol/L Carbon Dioxide Level 21 21-32 mmol/L Anion Gap 9.0 14.0 16-25 mmol/L Blood Urea Nitrogen 54 7-18 mg/dl Creatinine 2.27 0.60-1.20 mg/dl Est Creatinine Clear Calc Drug Dose 17.1 ml/min Estimated GFR () 21.6 Estimated GFR (Non- 18.7 BUN/Creatinine Ratio 23.6 10-20 Random Glucose 189 70-99 mg/dl Calcium Level 8.1 8.5-10.1 mg/dl Phosphorus Level 5.1 2.5-4.9 mg/dl Magnesium Level 2.2 1.8-2.4 mg/dl Total Bilirubin 0.4 0.2-1 mg/dl Direct Bilirubin < 0.1 0-0.2 mg/dl Aspartate Amino Transf (AST/SGOT) 36 15-37 U/L Alanine Aminotransferase (ALT/SGPT) 51 12-78 U/L Alkaline Phosphatase 121 45-117 U/L Pro-B-Type Natriuretic Peptide > 71520 0-1800 pg/ml Total Protein 6.3 6.4-8.2 gm/dl Albumin 3.0 3.4-5.0 gm/dl Lipase 127 73-393 U/L Bedside Hemoglobin 11.9 12.0-16.0 g/dl Bedside Hematocrit 35 37-47 % Bedside Sodium 129 135-144 mEq/L Bedside Potassium 5.3 3.3-5.0 mEq/L Bedside Chloride 97 101-112 mEq/L Bedside Total CO2 24 24-31 mEq/l Bedside Blood Urea Nitrogen 56 7-18 mg/dl Bedside Creatinine 2.5 0.6-1.3 mg/dl Bedside Glucose (other) 195 70-99 mg/dl Bedside Ionized Calcium (Josie) 1.10 1.12-1.32 mmol/l Diagnostic Radiology CHEST ONE VIEW PORTABLE CLINICAL HISTORY: Atypical chest pain COMPARISON STUDY: April 2017 FINDINGS: The heart is mildly enlarged. There are postsurgical changes of a midline sternotomy. As a left subclavian dual-chamber central venous pacemaker. There is mild chronic interstitial thickening. There is no lobar consolidation. There is no overt failure. There are no pleural effusions.[ A right medial apical opacity, likely represents a summation with vascular markings. No mass was visualized in this location on an October 2016 CT scan. IMPRESSION: 1. Mild cardiomegaly 2. No evidence of failure. No evidence of focal pulmonary consolidation 3. Right apical opacity, likely representing a summation Electronically signed by: Florian Lua M.D. 06/25/2017 2:37 PM EKG Atrial-paced rhythm Left bundle branch block Abnormal ECG When compared with ECG of 21-NOV-2016 12:40, Premature supraventricular complexes are no longer Present Confirmed by OLVIN CORMIER MD ([id number]) on 06/25/2017 4:24:42 PM Impression Assessment and Plan Ms. Gil is an 87 year old woman here for chest pain Chest Pain, Acute on Chronic Systolic CHF, history of CAD with stents - admit obs tele - consult cardiology - IV lasix x 40 mg now - chest xray did not show over congestion however BNP is 35,000. Patient reports her legs are baseline edematous, right > left, however this is more than her usual. She has been worked up in the past for this edema. - Trend troponins - Echo - continue ASA, metoprolol KYLEIGH, CKD III/IV - baseline creat around 2.0 - currently 2.5 - sees Dr. Lujan in [place] for nephrology - will consult [facility] nephrology - lasix may improve her creat if this is more of a CHF issue - will repeat prp in am - prn morphine for cp Hyponatremia - patient is chronically slightly low, around 130, currently 129 - lasix may improve her sodium - patient takes Lexapro - possibly a contributing factor - prp am Hyperkalemia - K is 5.3 - likely will improve with lasix administration - prp am DMII - bsgs ac & hs - continue home lantus 10 units HS - SS COPD - continue Symbicort - prn duonebs for sob Anxiety - continue Lexapro Urinary Frequency - U/A, culture pending DNR Heparin subq, scds Advanced Directives Existing Advance Directive: Yes Existing Living Will: Yes Existing Power of Lumber Cutter: Yes (son) Resuscitation Status DNR VTE Prophylaxis Will order VTE Prophylaxis: Yes
[2017-06-25 18:17] VITALS: BP 147/86; PULSE 63; TEMP 36.7; O2SAT 97; BMI 28.9
[2017-06-25] MEDS ORDERED: FUROSEMIDE INJ 40 MG in SYRINGE 0 ML IV ONE (19:00)
[2017-06-25] MEDS ORDERED: GLUCOSE 10 TABS/TUBE PO PRN (19:00)
[2017-06-25] MEDS ORDERED: DEXTROSE 50% 50 ML SYR IV PRN (19:00)
[2017-06-25] MEDS ORDERED: GLUCAGON FOR INJ 1 MG VIAL SQ PRN (19:00)
[2017-06-25] MEDS ORDERED: GLUCOSE 40% GEL 15 GM TUBE PO PRN (19:00)
[2017-06-25 19:32] VITALS: BP 142/83; PULSE 60; TEMP 37.3; O2SAT 95
[2017-06-25 20:00] VITALS: O2SAT 94
[2017-06-25] MEDS ORDERED: IV FLUIDS COMPLETED PRN (21:00)
[2017-06-25] MEDS: INSULIN ASPART 100 UNITS/ML 3 ML PEN SC SCH (21:00)
[2017-06-25] MEDS: BUDESONIDE/FORMOTEROL FUMARATE 160/4.5 60 PUFFS/INHALER INH SCH (22:04)
[2017-06-25] MEDS: METOPROLOL TARTRATE 100 MG TAB PO SCH (22:06)
[2017-06-25] MEDS: DOCUSATE SODIUM 100 MG CAP PO SCH (22:07)
[2017-06-25] MEDS: LORAZEPAM 0.5 MG TAB PO SCH (22:10)
[2017-06-25] MEDS: INSULIN GLARGINE SOLOSTAR 100 UNITS/ML 3 ML PEN SC SCH (22:11)
[2017-06-25] MEDS: HEPARIN SOD 5000 UNIT/0.5 ML CARP SQ SCH (22:12)
[2017-06-25 23:59] VITALS: O2SAT 94
[2017-06-26] VITALS (8 sets, daily range): BP systolic 130–178; BP diastolic 65–93; PULSE 59–72; TEMP 36.3–37.2; O2SAT 93–99
[2017-06-26 05:37] LABS: HEMATOCRIT 35.5 % (37-47); HEMOGLOBIN 11.8 g/dL (12.0-16.0); MEAN CELL VOLUME 86.8 fL (80-100); MEAN CORPUSCULAR HEMOGLOBIN 28.9 pg (25-34); MEAN CORPUSCULAR HGB CONC 33.2 g/dl (32-36); MEAN PLATELET VOLUME 8.8 fL (7.4-10.4); PLATELET COUNT 233 K/uL (130-400); RED CELL DISTRIBUTION WIDTH CV 13.7 % (11.5-14.5); RED CELL DISTRIBUTION WIDTH SD 43.6 fL (36.4-46.3)
[2017-06-26 06:04] LABS: CALCIUM 8.5 mg/dl (8.5-10.1); CREATININE 2.33 mg/dl (0.60-1.20); POTASSIUM 4.3 mmol/L (3.5-5.1)
[2017-06-26] MEDS: LEVOTHYROXINE 50 MCG TAB PO SCH (06:17)
[2017-06-26] MEDS: INSULIN ASPART 100 UNITS/ML 3 ML PEN SC SCH ×4 (08:25→21:00)
[2017-06-26] MEDS: DOCUSATE SODIUM 100 MG CAP PO SCH ×2 (08:33→21:00)
[2017-06-26] MEDS: DILTIAZEM HCL 240 MG CAPCR PO SCH (08:33)
[2017-06-26] MEDS: LORAZEPAM 0.5 MG TAB PO SCH ×2 (08:33→21:22)
[2017-06-26] MEDS: CHOLECALCIFEROL 1000 INTER.UNIT TAB PO SCH (08:34)
[2017-06-26] MEDS: PANTOprazole SOD 40 MG TAB PO SCH (08:34)
[2017-06-26] MEDS: ASPIRIN 81 MG ECTAB PO SCH (08:34)
[2017-06-26] MEDS: CYANOCOBALAMIN 500 MCG TAB (VIT B-12) PO SCH (08:34)
[2017-06-26] MEDS: MAGNESIUM OXIDE 400 MG TAB PO SCH (08:35)
[2017-06-26] MEDS: METOPROLOL TARTRATE 100 MG TAB PO SCH ×2 (08:35→21:11)
[2017-06-26] MEDS: HEPARIN SOD 5000 UNIT/0.5 ML CARP SQ SCH ×2 (08:37→21:18)
[2017-06-26] MEDS: FERROUS SULFATE 325 MG TAB PO SCH (08:37)
[2017-06-26] MEDS: ESCITALOPRAM OXALATE 10 MG TAB PO SCH (08:37)
[2017-06-26] MEDS: FLUTICASONE PROPIONATE NA SPR 16 GM BTL SCH (08:41)
[2017-06-26] MEDS: BUDESONIDE/FORMOTEROL FUMARATE 160/4.5 60 PUFFS/INHALER INH SCH ×2 (08:41→21:12)
[2017-06-26] MEDS ORDERED: FUROSEMIDE INJ 40 MG in SYRINGE 0 ML IV ONE (10:30)
--- NOTE | 2017-06-26 12:51 | Nephrology Consultation ---
Nephrology Consultation Date & Providers Date of Consultation: Jun 26, 2017. Primary Care Provider: Deion Downs M.D. Referring Provider: Reason for Consultation Acute renal insufficiency History of Present Illness Lisa Gil is a very pleasant 87-year-old female who was seen and evaluated in her hospital room this morning. The plan of care was discussed with Dr. Perez. Marlon has a known history of CKD. She follows with Dr. Edmund Urias. Records have been requested from Dr. Urias. She reports recently discussing the advanced nature of her kidney disease in the nephrology clinic. She notes that managing her volume status has been more difficult. She reports changing several medications to assist with her kidney dysfunction. She cannot recall which medications were changed. She states that she was feeling very well after this appointment and medication adjustment. Weight was stable and she had minimal edema. Unfortunately, she presented to [facility] yesterday with mild chest discomfort, increased dyspnea and notable edema in her lower extremities. Mohini notes that her abdomen also felt bloated. Her urine output seemed to be decreased for a couple days as well. She feels that symptoms are improving. Urine output increased notably following furosemide dosing. She describes chronic 2+ pillow orthopnea. She notes that this was increased. Activity tolerance was reduced but these symptoms are improving. Past Medical/Surgical History Medical: Chronic kidney disease IV, baseline creatinine 1.8-2.0 mg/dL Coronary artery disease, history of CABG Diastolic CHF LVH Atrial fibrillation with tachybrady syndrome, pacemaker Hypertension GERD Anemia History of incomplete bladder emptying Diabetes mellitus Surgical: CABG (2006), PCI (2009), pacemaker 2012 Allergies Coded Allergies: Fenofibrate (Verified Allergy, Intermediate, rash, 05/07/17) Amoxicillin (Verified Allergy, Unknown, UNKNOWN, 05/07/17) Aspartame (Unverified Allergy, Unknown, ., 05/07/17) Calcium Carbonate (Unverified Allergy, Unknown, ., 05/07/17) Ciprofloxacin (Unverified Allergy, Unknown, ., 05/07/17) Diphenhydramine (Unverified Allergy, Unknown, ., 05/07/17) Fexofenadine (Verified Allergy, Unknown, UNKNOWN, 05/07/17) Irbesartan (Verified Allergy, Unknown, UNKNOWN, 05/07/17) Lidocaine (Unverified Allergy, Unknown, ., 05/07/17) Niacin (Verified Allergy, Unknown, RASH, 05/07/17) Nystatin (Unverified Allergy, Unknown, ., 05/07/17) Penicillins (Verified Allergy, Unknown, UNKNOWN, 05/07/17) Sulfa Antibiotics (Verified Allergy, Unknown, UNKNOWN, 05/07/17) Tomato (Verified Allergy, Unknown, GI SYMPTOMS, 05/07/17) Flumazenil (Unverified Adverse Reaction, Intermediate, DELIRIUM, 05/07/17) anxious, increased heart rate, increased blood pressure Inpatient Medications Current Inpatient Medications Medications (Trade) Dose Ordered Sig/Leslee Route Start Time Stop Time Status Last Admin Dose Admin Heparin Sodium (Porcine) (Heparin Sq 5000 Unit/0.5ml) 5,000 unit Q12 SQ 06/25/17 21:00 07/25/17 20:59 06/26/17 08:37 5,000 UNIT Acetaminophen (Tylenol Tab) 650 mg Q4H PRN PO 06/25/17 17:15 07/25/17 17:14 Aspirin (Ecotrin Tab) 81 mg QAM PO 06/26/17 09:00 07/26/17 08:59 06/26/17 08:34 81 MG Budesonide/ Formoterol Fumarate (Symbicort 160/ 4.5 Inh) 2 puffs BID INH 06/25/17 21:00 07/25/17 20:59 06/26/17 08:41 2 PUFFS Docusate Sodium (coLACE CAP) 100 mg BID PO 06/25/17 21:00 07/25/17 20:59 06/26/17 08:33 100 MG Escitalopram Oxalate (Lexapro Tab) 5 mg DAILY PO 06/26/17 09:00 07/26/17 08:59 06/26/17 08:37 5 MG Insulin Glargine (Lantus Solostar Pen) 10 units QPM SC 06/25/17 21:00 07/25/17 20:59 06/25/17 22:11 10 UNITS Levothyroxine Sodium (Synthroid Tab) 50 mcg DAILYBB PO 06/26/17 06:00 07/26/17 05:59 06/26/17 06:17 50 MCG Lorazepam (Ativan Tab) 0.5 mg BID PO 06/25/17 21:00 07/25/17 20:59 06/26/17 08:33 0.5 MG Magnesium Oxide (Mag-Ox Tab) 400 mg QAM PO 06/26/17 09:00 07/26/17 08:59 06/26/17 08:35 400 MG Metoprolol Tartrate (Lopressor Tab) 100 mg BID PO 06/25/17 21:00 07/25/17 20:59 06/26/17 08:35 100 MG Nitroglycerin (Nitrostat Tab) 0.4 mg UD PRN UT 06/25/17 17:15 07/25/17 17:14 Cholecalciferol (Vitamin D Tab) 1,000 inter.unit QAM PO 06/26/17 09:00 07/26/17 08:59 06/26/17 08:34 1,000 INTER.UNIT Cyanocobalamin (Vitamin B-12 Tab) 1,000 mcg QAM PO 06/26/17 09:00 07/26/17 08:59 06/26/17 08:34 1,000 MCG Diltiazem HCl (Cardizem Cd Cap) 240 mg QAM PO 06/26/17 09:00 07/26/17 08:59 06/26/17 08:33 240 MG Ferrous Sulfate (Feosol Tab) 325 mg QAM PO 06/26/17 09:00 07/26/17 08:59 06/26/17 08:37 325 MG Pantoprazole Sodium (Protonix Tab) 40 mg QAM PO 06/26/17 09:00 07/26/17 08:59 06/26/17 08:34 40 MG Fluticasone Propionate (Flonase Nasal [place]) 2 sprays DAILY NA 06/26/17 09:00 07/26/17 08:59 06/26/17 08:41 2 SPRAYS Albuterol/ Ipratropium (Duoneb) 3 ml QIDR PRN INH 06/25/17 17:15 07/25/17 17:14 Insulin Aspart (novoLOG ASPART) SLIDING SCALE If C... ACHS SC 06/25/17 21:00 07/25/17 20:59 Morphine Sulfate (MoRPHine SULFATE INJ) 2 mg Q4H PRN IV 06/25/17 17:30 07/09/17 17:29 Glucose (Glucose 40% Gel) 15-30 GRAMS 15 GRAMS... UD PRN PO 06/25/17 19:00 07/25/17 18:59 Glucose (Glucose Chew Tab) 4-8 Tablets 4 Tabl... UD PRN PO 06/25/17 19:00 07/25/17 18:59 Dextrose (Dextrose 50% 50ML Syringe) 25-50ML OF 50% DW IV FOR... UD PRN IV 06/25/17 19:00 07/25/17 18:59 Glucagon (Glucagon Inj) 1 mg UD PRN SQ 06/25/17 19:00 07/25/17 18:59 Miscellaneous (Iv Fluids Completed) 1 ea PRN PRN N/A 06/25/17 21:00 06/25/18 20:59 Family History Omitted secondary to age Social History Smoking Status: Never Smoker Smokeless Tobacco Use: No Alcohol Use: none Drug Use: none Marital Status: Housing Status: assisted living ([facility]) Occupation: retired Review of Systems A complete review of systems was performed. Pertinent positives are noted above. All other systems are negative. Physical Exam Date Time Temp Pulse Resp B/P (MAP) Pulse Ox O2 Delivery O2 Flow Rate FiO2 06/26/17 11:50 36.8 62 18 134/68 (90) 95 06/26/17 09:51 Room Air 06/26/17 08:12 36.9 72 16 130/93 (105) 99 06/26/17 08:00 Room Air 06/26/17 04:00 36.4 60 17 178/76 (110) 94 Room Air 06/26/17 04:00 94 Room Air 06/26/17 00:03 37.2 61 17 170/73 (105) 93 Room Air 06/25/17 23:59 94 Room Air 06/25/17 20:00 94 Room Air 06/25/17 19:32 37.3 60 20 142/83 (102) 95 Room Air 06/25/17 18:17 36.7 63 20 147/86 97 Room Air 06/25/17 18:02 60 155/66 97 06/25/17 17:30 63 141/64 96 Room Air 06/25/17 16:05 60 20 149/71 100 Nasal Cannula 4.0 06/25/17 15:06 60 132/60 06/25/17 14:50 60 12 06/25/17 14:45 60 22 100 06/25/17 14:40 60 24 100 06/25/17 14:35 60 18 100 06/25/17 14:33 140/84 150/60 06/25/17 14:31 152/60 06/25/17 14:30 62 21 100 06/25/17 14:25 60 13 100 06/25/17 14:24 100 Nasal Cannula 4.0 06/25/17 14:23 97 Room Air 06/25/17 14:21 36.9 61 18 157/72 97 Room Air 06/25/17 14:20 60 18 96 06/25/17 14:18 96 Room Air 06/25/17 14:16 65 06/25/17 14:15 60 23 98 06/25/17 14:11 157/72 General Appearance: WD/WN, no apparent distress Head: normocephalic, atraumatic Eyes: normal inspection, sclerae normal ENT: normal ENT inspection, pharynx normal Neck: supple, no carotid bruits, + JVD Respiratory/Chest: no respiratory distress, no accessory muscle use, + decreased breath sounds, + rales Cardiovascular: no murmur, + bradycardia Abdomen/GI: non tender, soft Back: no CVA tenderness Extremities/Musculoskelatal: normal inspection, + pedal edema Neurologic/Psych: alert, normal mood/affect Laboratory Results Last 24 Hours Test 06/25/17 15:15 06/25/17 15:25 06/25/17 15:27 06/25/17 18:35 White Blood Count 8.28 K/uL Red Blood Count 3.88 M/uL Hemoglobin 11.2 g/dL Hematocrit 34.2 % Mean Corpuscular Volume 88.1 fL Mean Corpuscular Hemoglobin 28.9 pg Mean Corpuscular Hemoglobin Concent 32.7 g/dl Platelet Count 232 K/uL Mean Platelet Volume 9.1 fL Neutrophils (%) (Auto) 70.3 % Lymphocytes (%) (Auto) 20.7 % Monocytes (%) (Auto) 7.4 % Eosinophils (%) (Auto) 1.3 % Basophils (%) (Auto) 0.1 % Neutrophils # (Auto) 5.82 K/uL Lymphocytes # (Auto) 1.71 K/uL Monocytes # (Auto) 0.61 K/uL Eosinophils # (Auto) 0.11 K/uL Basophils # (Auto) 0.01 K/uL RDW Standard Deviation 44.1 fL RDW Coefficient of Variation 13.7 % Immature Granulocyte % (Auto) 0.2 % Immature Granulocyte # (Auto) 0.02 K/uL Prothrombin Time 10.4 SECONDS Prothromb Time International Ratio 1.0 Activated Partial Thromboplast Time 25.9 SECONDS Partial Thromboplastin Ratio 1.0 Sodium Level 128 mmol/L Potassium Level 5.0 mmol/L Chloride Level 98 mmol/L Carbon Dioxide Level 21 mmol/L Anion Gap 9.0 mmol/L 14.0 mmol/L Blood Urea Nitrogen 54 mg/dl Creatinine 2.27 mg/dl Est Creatinine Clear Calc Drug Dose 17.1 ml/min Estimated GFR () 21.6 Estimated GFR (Non- 18.7 BUN/Creatinine Ratio 23.6 Random Glucose 189 mg/dl Calcium Level 8.1 mg/dl Phosphorus Level 5.1 mg/dl Magnesium Level 2.2 mg/dl Total Bilirubin 0.4 mg/dl Direct Bilirubin < 0.1 mg/dl Aspartate Amino Transf (AST/SGOT) 36 U/L Alanine Aminotransferase (ALT/SGPT) 51 U/L Alkaline Phosphatase 121 U/L Pro-B-Type Natriuretic Peptide > 56404 pg/ml Total Protein 6.3 gm/dl Albumin 3.0 gm/dl Lipase 127 U/L Bedside Hemoglobin 11.9 g/dl Bedside Hematocrit 35 % Bedside Sodium 129 mEq/L Bedside Potassium 5.3 mEq/L Bedside Chloride 97 mEq/L Bedside Total CO2 24 mEq/l Bedside Blood Urea Nitrogen 56 mg/dl Bedside Creatinine 2.5 mg/dl Bedside Glucose (other) 195 mg/dl Bedside Ionized Calcium (Josie) 1.10 mmol/l Bedside Troponin I < 0.030 ng/ml Troponin I 0.021 ng/ml Test 06/25/17 20:38 06/25/17 22:10 06/25/17 23:22 06/26/17 05:25 Bedside Glucose 130 mg/dl Urine Color YELLOW Urine Appearance CLEAR Urine pH 5.0 Urine Specific [place] 1.012 Urine Protein 1+ Urine Glucose (UA) NEG Urine Ketones NEG Urine Occult Blood NEG Urine Nitrite NEG Urine Bilirubin NEG Urine Urobilinogen NEG Urine Leukocyte Esterase NEG Urine WBC (Auto) 1-5 /hpf Urine RBC (Auto) 0-4 /hpf Urine Hyaline Casts (Auto) 1-5 /lpf Urine Epithelial Cells (Auto) >30 /lpf Urine Bacteria (Auto) NEG Troponin I 0.015 ng/ml 0.017 ng/ml White Blood Count 6.80 K/uL Red Blood Count 4.09 M/uL Hemoglobin 11.8 g/dL Hematocrit 35.5 % Mean Corpuscular Volume 86.8 fL Mean Corpuscular Hemoglobin 28.9 pg Mean Corpuscular Hemoglobin Concent 33.2 g/dl RDW Standard Deviation 43.6 fL RDW Coefficient of Variation 13.7 % Platelet Count 233 K/uL Mean Platelet Volume 8.8 fL Sodium Level 131 mmol/L Potassium Level 4.3 mmol/L Chloride Level 99 mmol/L Carbon Dioxide Level 24 mmol/L Anion Gap 8.0 mmol/L Blood Urea Nitrogen 58 mg/dl Creatinine 2.33 mg/dl Est Creatinine Clear Calc Drug Dose 16.1 ml/min Estimated GFR () 21.0 Estimated GFR (Non- 18.1 BUN/Creatinine Ratio 24.9 Random Glucose 66 mg/dl Calcium Level 8.5 mg/dl Test 06/26/17 07:11 06/26/17 07:28 06/26/17 11:31 Bedside Glucose 59 mg/dl 85 mg/dl 155 mg/dl Impression (1) Acute exacerbation of CHF (congestive heart failure) (2) Acute kidney injury (3) CKD (chronic kidney disease) (4) DM (diabetes mellitus) (5) SOB (shortness of breath) (6) Atrial fibrillation (7) Bladder outflow obstruction (8) Hypertension Lisa is an 87-year-old female with coronary artery disease, CKD IV , hypertension, diabetes mellitus II, and atrial fibrillation/SSS with diastolic CHF. Urine analysis is bland and microscopy is acellular. Metabolic profile is otherwise normal. Lisa has what appears to be right greater than left heart failure. TTE is pending. CXR was personally reviewed. KYLEIGH is consistent with cardiorenal syndrome, possible post obstructive etiology or ATN. Renal US has been requested and will check PVR. Document I/O's. Cardiology consult pending. Continue furosemide to encourage net negative fluid balance. Document metabolic profile daily. Recommendations -- Furosemide 40 mg IV -- Document I/O's -- Obtain renal US and PVR -- Obtain records from Dr. Urias -- Renal diet, low sodium -- Keep feet elevated -- TTE and cardiology consult pending -- Repeat metabolic profile tomorrow AM -- There is no current indication for CRYPTOLOG[employer] SUPPORT SPECIALIST though the patient did discuss with me her prior conversations about potential future need for dialysis
--- NOTE | 2017-06-26 14:20 | DIAGNOSTIC IMAGING REPORT ---
RENAL ULTRASOUND CLINICAL HISTORY: Acute kidney injury. COMPARISON STUDY: CT of the abdomen and pelvis May 02, 2017. TECHNIQUE: Sonography of the kidneys and the urinary bladder was performed. FINDINGS: This exam is moderately compromised by suboptimal penetration. There is no hydronephrosis. The right kidney measures 9.1 cm in maximal dimension and the left measures 7.3 cm. There is marked left renal atrophy. The right kidney is slightly echogenic. There is a 7 mm right renal cyst. Prevoid volume of the bladder was 686 cc and post void volume was 427 cc. IMPRESSION: 1. No hydronephrosis. 2. Marked left renal atrophy. 3. Postvoid residual of 427 cc within the bladder. Electronically signed by: Ramon Bradshaw M.D. 06/26/2017 2:19 PM Dictated Date/Time: 06/26/2017 2:18 PM
--- NOTE | 2017-06-26 15:12 | Cardiology Consultation ---
Cardiology Consultation Date of Consultation: Jun 26, 2017. Requesting Physician: Ana Downs Reason for Consultation: Chest discomfort Pt evaluation today including: conversation w/ patient, physical exam, lab review, review of studies, review of inpatient medication list History of Present Illness This is a very pleasant 87-year-old woman who has known coronary disease including bypass surgery in 2006 and intervention in 2009. She also has a pacemaker in place, this is a [employer] device implanted in 2012, I believe for sick sinus syndrome. She had evaluation for chest discomfort in April 2014, her echocardiogram demonstrated normal left ventricular function and this was felt to be musculoskeletal and not due to coronary disease. She then had admission on December 29, 2014 for shortness of breath, this was felt to be due to a respiratory infection. This was treated and she was discharged, however at home she apparently continued to feel poorly. She also has a history of atrial fibrillation a, she was on warfarin several years ago but apparently after conversation with her juice bar team member (Dr. Guido) and her difficulty with handling the warfarin it was decided to keep her off of anti coagulation. It was not clear to me how much time she spends an atrial fibrillation, her pacemaker does monitor for atrial fibrillation and in early December 2014 when she was here interrogation showed that she had about 50 percent of the time in atrial fibrillation although that can be unreliable. She was in sinus rhythm when she was here in August of 2013 and in April of 2014. She seems to be asymptomatic during the arrhythmia. I believe I had started her on Eliquis at the time for stroke prevention. She tells me that since then her juice bar team member has told her that she should be on aspirin, not an anticoagulant. She is now admitted with chest discomfort. She describes chest discomfort associated with severe shortness of breath, the symptoms have been worse recently and she also describes feeling very tired and fatigued. Cardiac enzymes so far have been negative. She has not had chest discomfort in the hospital does not get it without exertion. Past Medical/Surgical History (1) CHF (congestive heart failure) (2) S/P quintuple vessel bypass (3) CKD (chronic kidney disease) (4) Pacemaker (5) DM (diabetes mellitus) (6) Atrial fibrillation (7) Hypertension (8) GERD (gastroesophageal reflux disease) Family History Omitted secondary to age Social History Smoking Status: Never Smoker History of Alcohol Use: No Review of Systems Constitutional: No fever, No weight loss, No weakness Respiratory: + see HPI, + shortness of breath, + dyspnea on exertion, No cough , No wheezing Cardiac: + see HPI, + chest pain, No orthopnea, No PND, No edema, No palpitations Abdomen: No pain, No nausea, No vomiting, No diarrhea, No GI bleeding Female : No problem reported Neurologic: No paralysis, No weakness, No numbness/tingling, No balance problems Heme: No abnormal bleeding/bruising, No clotting problems Endo: No fatigue Skin: No problem reported All Other Systems: Reviewed and Negative Allergies Coded Allergies: Fenofibrate (Verified Allergy, Intermediate, rash, 05/07/17) Amoxicillin (Verified Allergy, Unknown, UNKNOWN, 05/07/17) Aspartame (Unverified Allergy, Unknown, ., 05/07/17) Calcium Carbonate (Unverified Allergy, Unknown, ., 05/07/17) Ciprofloxacin (Unverified Allergy, Unknown, ., 05/07/17) Diphenhydramine (Unverified Allergy, Unknown, ., 05/07/17) Fexofenadine (Verified Allergy, Unknown, UNKNOWN, 05/07/17) Irbesartan (Verified Allergy, Unknown, UNKNOWN, 05/07/17) Lidocaine (Unverified Allergy, Unknown, ., 05/07/17) Niacin (Verified Allergy, Unknown, RASH, 05/07/17) Nystatin (Unverified Allergy, Unknown, ., 05/07/17) Penicillins (Verified Allergy, Unknown, UNKNOWN, 05/07/17) Sulfa Antibiotics (Verified Allergy, Unknown, UNKNOWN, 05/07/17) Tomato (Verified Allergy, Unknown, GI SYMPTOMS, 05/07/17) Flumazenil (Unverified Adverse Reaction, Intermediate, DELIRIUM, 05/07/17) anxious, increased heart rate, increased blood pressure Medications Current Inpatient Medications Medications (Trade) Dose Ordered Sig/Leslee Route Start Time Stop Time Status Last Admin Dose Admin Heparin Sodium (Porcine) (Heparin Sq 5000 Unit/0.5ml) 5,000 unit Q12 SQ 06/25/17 21:00 07/25/17 20:59 06/26/17 08:37 5,000 UNIT Acetaminophen (Tylenol Tab) 650 mg Q4H PRN PO 06/25/17 17:15 07/25/17 17:14 Aspirin (Ecotrin Tab) 81 mg QAM PO 06/26/17 09:00 07/26/17 08:59 06/26/17 08:34 81 MG Budesonide/ Formoterol Fumarate (Symbicort 160/ 4.5 Inh) 2 puffs BID INH 06/25/17 21:00 07/25/17 20:59 06/26/17 08:41 2 PUFFS Docusate Sodium (coLACE CAP) 100 mg BID PO 06/25/17 21:00 07/25/17 20:59 06/26/17 08:33 100 MG Escitalopram Oxalate (Lexapro Tab) 5 mg DAILY PO 06/26/17 09:00 07/26/17 08:59 06/26/17 08:37 5 MG Insulin Glargine (Lantus Solostar Pen) 10 units QPM SC 06/25/17 21:00 07/25/17 20:59 06/25/17 22:11 10 UNITS Levothyroxine Sodium (Synthroid Tab) 50 mcg DAILYBB PO 06/26/17 06:00 07/26/17 05:59 06/26/17 06:17 50 MCG Lorazepam (Ativan Tab) 0.5 mg BID PO 06/25/17 21:00 07/25/17 20:59 06/26/17 08:33 0.5 MG Magnesium Oxide (Mag-Ox Tab) 400 mg QAM PO 06/26/17 09:00 07/26/17 08:59 06/26/17 08:35 400 MG Metoprolol Tartrate (Lopressor Tab) 100 mg BID PO 06/25/17 21:00 07/25/17 20:59 06/26/17 08:35 100 MG Nitroglycerin (Nitrostat Tab) 0.4 mg UD PRN UT 06/25/17 17:15 07/25/17 17:14 Cholecalciferol (Vitamin D Tab) 1,000 inter.unit QAM PO 06/26/17 09:00 07/26/17 08:59 06/26/17 08:34 1,000 INTER.UNIT Cyanocobalamin (Vitamin B-12 Tab) 1,000 mcg QAM PO 06/26/17 09:00 07/26/17 08:59 06/26/17 08:34 1,000 MCG Diltiazem HCl (Cardizem Cd Cap) 240 mg QAM PO 06/26/17 09:00 07/26/17 08:59 06/26/17 08:33 240 MG Ferrous Sulfate (Feosol Tab) 325 mg QAM PO 06/26/17 09:00 07/26/17 08:59 06/26/17 08:37 325 MG Pantoprazole Sodium (Protonix Tab) 40 mg QAM PO 06/26/17 09:00 07/26/17 08:59 06/26/17 08:34 40 MG Fluticasone Propionate (Flonase Nasal [place]) 2 sprays DAILY NA 06/26/17 09:00 07/26/17 08:59 06/26/17 08:41 2 SPRAYS Albuterol/ Ipratropium (Duoneb) 3 ml QIDR PRN INH 06/25/17 17:15 07/25/17 17:14 Insulin Aspart (novoLOG ASPART) SLIDING SCALE If C... ACHS SC 06/25/17 21:00 07/25/17 20:59 Morphine Sulfate (MoRPHine SULFATE INJ) 2 mg Q4H PRN IV 06/25/17 17:30 07/09/17 17:29 Glucose (Glucose 40% Gel) 15-30 GRAMS 15 GRAMS... UD PRN PO 06/25/17 19:00 07/25/17 18:59 Glucose (Glucose Chew Tab) 4-8 Tablets 4 Tabl... UD PRN PO 06/25/17 19:00 07/25/17 18:59 Dextrose (Dextrose 50% 50ML Syringe) 25-50ML OF 50% DW IV FOR... UD PRN IV 06/25/17 19:00 07/25/17 18:59 Glucagon (Glucagon Inj) 1 mg UD PRN SQ 06/25/17 19:00 07/25/17 18:59 Miscellaneous (Iv Fluids Completed) 1 ea PRN PRN N/A 06/25/17 21:00 06/25/18 20:59 Physical Exam Vital Signs Past 12 Hours Date Time Temp Pulse Resp B/P (MAP) Pulse Ox O2 Delivery O2 Flow Rate FiO2 06/26/17 09:51 Room Air 06/26/17 08:12 36.9 72 16 130/93 (105) 99 06/26/17 08:00 Room Air 06/26/17 04:00 36.4 60 17 178/76 (110) 94 Room Air 06/26/17 04:00 94 Room Air 06/26/17 00:03 37.2 61 17 170/73 (105) 93 Room Air 06/25/17 23:59 94 Room Air Constitutional: General Apperance: heathly-appearing Level of Distress: NAD Psychiatric: Mental Status: active & alert Head: normocephalic Eyes: EOM: EOMI ENMT: normal ENT inspection, hearing grossly normal Neck: supple, no masses Lungs: Respiratory effort: no dyspnea, good air movement Auscultation: breath sounds normal, no wheezing Cardiovascular: Heart Auscultation: RRR, no rubs, no gallops, II/ WSM Peripheral Pulses: Bruits: none appreciated Abdomen: Bowel Sounds: normal Inspection & Palpation: soft, no tenderness, guarding & rebound, no masses Extremities: no edema Neurologic: Cranial Nerves: grossly intact Sensation: grossly intact Data Laboratory Results: Last 24 Hours Test 06/25/17 15:15 06/25/17 15:25 06/25/17 15:27 06/25/17 18:35 White Blood Count 8.28 K/uL Red Blood Count 3.88 M/uL Hemoglobin 11.2 g/dL Hematocrit 34.2 % Mean Corpuscular Volume 88.1 fL Mean Corpuscular Hemoglobin 28.9 pg Mean Corpuscular Hemoglobin Concent 32.7 g/dl Platelet Count 232 K/uL Mean Platelet Volume 9.1 fL Neutrophils (%) (Auto) 70.3 % Lymphocytes (%) (Auto) 20.7 % Monocytes (%) (Auto) 7.4 % Eosinophils (%) (Auto) 1.3 % Basophils (%) (Auto) 0.1 % Neutrophils # (Auto) 5.82 K/uL Lymphocytes # (Auto) 1.71 K/uL Monocytes # (Auto) 0.61 K/uL Eosinophils # (Auto) 0.11 K/uL Basophils # (Auto) 0.01 K/uL RDW Standard Deviation 44.1 fL RDW Coefficient of Variation 13.7 % Immature Granulocyte % (Auto) 0.2 % Immature Granulocyte # (Auto) 0.02 K/uL Prothrombin Time 10.4 SECONDS Prothromb Time International Ratio 1.0 Activated Partial Thromboplast Time 25.9 SECONDS Partial Thromboplastin Ratio 1.0 Sodium Level 128 mmol/L Potassium Level 5.0 mmol/L Chloride Level 98 mmol/L Carbon Dioxide Level 21 mmol/L Anion Gap 9.0 mmol/L 14.0 mmol/L Blood Urea Nitrogen 54 mg/dl Creatinine 2.27 mg/dl Est Creatinine Clear Calc Drug Dose 17.1 ml/min Estimated GFR () 21.6 Estimated GFR (Non- 18.7 BUN/Creatinine Ratio 23.6 Random Glucose 189 mg/dl Calcium Level 8.1 mg/dl Phosphorus Level 5.1 mg/dl Magnesium Level 2.2 mg/dl Total Bilirubin 0.4 mg/dl Direct Bilirubin < 0.1 mg/dl Aspartate Amino Transf (AST/SGOT) 36 U/L Alanine Aminotransferase (ALT/SGPT) 51 U/L Alkaline Phosphatase 121 U/L Pro-B-Type Natriuretic Peptide > 59854 pg/ml Total Protein 6.3 gm/dl Albumin 3.0 gm/dl Lipase 127 U/L Bedside Hemoglobin 11.9 g/dl Bedside Hematocrit 35 % Bedside Sodium 129 mEq/L Bedside Potassium 5.3 mEq/L Bedside Chloride 97 mEq/L Bedside Total CO2 24 mEq/l Bedside Blood Urea Nitrogen 56 mg/dl Bedside Creatinine 2.5 mg/dl Bedside Glucose (other) 195 mg/dl Bedside Ionized Calcium (Josie) 1.10 mmol/l Bedside Troponin I < 0.030 ng/ml Troponin I 0.021 ng/ml Test 06/25/17 20:38 06/25/17 22:10 06/25/17 23:22 06/26/17 05:25 Bedside Glucose 130 mg/dl Urine Color YELLOW Urine Appearance CLEAR Urine pH 5.0 Urine Specific [place] 1.012 Urine Protein 1+ Urine Glucose (UA) NEG Urine Ketones NEG Urine Occult Blood NEG Urine Nitrite NEG Urine Bilirubin NEG Urine Urobilinogen NEG Urine Leukocyte Esterase NEG Urine WBC (Auto) 1-5 /hpf Urine RBC (Auto) 0-4 /hpf Urine Hyaline Casts (Auto) 1-5 /lpf Urine Epithelial Cells (Auto) >30 /lpf Urine Bacteria (Auto) NEG Troponin I 0.015 ng/ml 0.017 ng/ml White Blood Count 6.80 K/uL Red Blood Count 4.09 M/uL Hemoglobin 11.8 g/dL Hematocrit 35.5 % Mean Corpuscular Volume 86.8 fL Mean Corpuscular Hemoglobin 28.9 pg Mean Corpuscular Hemoglobin Concent 33.2 g/dl RDW Standard Deviation 43.6 fL RDW Coefficient of Variation 13.7 % Platelet Count 233 K/uL Mean Platelet Volume 8.8 fL Sodium Level 131 mmol/L Potassium Level 4.3 mmol/L Chloride Level 99 mmol/L Carbon Dioxide Level 24 mmol/L Anion Gap 8.0 mmol/L Blood Urea Nitrogen 58 mg/dl Creatinine 2.33 mg/dl Est Creatinine Clear Calc Drug Dose 16.1 ml/min Estimated GFR () 21.0 Estimated GFR (Non- 18.1 BUN/Creatinine Ratio 24.9 Random Glucose 66 mg/dl Calcium Level 8.5 mg/dl Test 06/26/17 07:11 06/26/17 07:28 Bedside Glucose 59 mg/dl 85 mg/dl Imaging: A chest x-ray done this admission shows mild cardiomegaly with no evidence of congestive heart failure. EKG: Her electrocardiogram on admission showed atrial pacing with intact AV conduction but a left bundle branch block pattern, her electrocardiogram today is similar. Telemetry reviewed: Atrial pacing predominantly, appropriate heart rate and AV conduction with an intraventricular conduction delay. Assessment & Plan 1. Chest discomfort: She has a history of coronary disease so this certainly could be a symptom of progression, however it is associated with shortness of breath and so could be secondary to that as well. She may have some element of fluid retention. I am a little bit reluctant to consider invasive evaluation with no objective evidence of ischemia (negative enzymes) however her electrocardiogram cannot be read due to the presence of a left bundle branch block. I would like to wait for the echocardiogram to see whether she has developed some degree of left ventricular dysfunction. Her creatinine is such that we could do a catheterization although it may run some risk of nephrotoxicity. 2. Shortness of breath: Her shortness of breath could be an anginal equivalent , she does not have a lot of heart failure identified on exam or on chest x-ray however her BNP was elevated and with her kidney function she may have had fluid retention. Once again, would like to see her echocardiogram before making any specific evaluations for further evaluation. It might be prudent to diurese her somewhat. 3. Atrial fibrillation: She has a history of atrial fibrillation, I did not interrogate her pacemaker to see if that remains. If it does she falls in the category where anticoagulation would be recommended, although the bleeding wrist does go up substantially. I have not addressed at this time as it has evidently been addressed by her juice bar team member. 4. Pacemaker: Her pacemaker is pacing virtually all the time on telemetry, it appears appropriate. She evidently gets regular pacemaker evaluations through her juice bar team member, therefore I have not done that. Thank you for allowing me to participate in her care.
--- NOTE | 2017-06-26 15:25 | Progress Note ---
Subjective Date of Service: Jun 26, 2017. Subjective Pt evaluation today including: conversation w/ patient, physical exam, lab review, conversation w/ franchise business consultant, review of inpatient medication list Pain: no pain PO Intake: adequate Voiding: no voiding problems patient making more urine since Lasix 40mg IV says that her Lasix was stopped as outpatient, very little urine output since then, just "dribbling" weight going up and more edema says her breathing is better, less dyspnea since admission discussed case with Dr. 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 [place] has discussed the possible need for HD in the future she says she is open to dialysis if needed reviewed labs, Cr is 2.33, stable, troponin negative Problem List Medical Problems: (1) Acute bronchitis Status: Acute (2) Altered mental status Status: Acute (3) Anemia Status: Acute (4) Atypical chest pain Status: Acute (5) CKD (chronic kidney disease) Status: Chronic (6) Degenerative disc disease, cervical Status: Acute (7) E86.0 Status: Acute (8) Edema Status: Acute (9) EKG, abnormal Status: Acute (10) Hyperglycemia Status: Acute (11) Hyperglycemia due to type 2 diabetes mellitus Status: Acute (12) Hyponatremia Status: Acute (13) Incarcerated right inguinal hernia Status: Acute (14) Left leg cellulitis Status: Acute (15) Leukocytosis Status: Acute (16) Pneumonia Status: Acute (17) Pneumonitis Status: Acute (18) Pneumonitis Status: Acute (19) Respiratory distress Status: Acute (20) Small bowel obstruction Status: Acute (21) UTI (urinary tract infection) Status: Acute (22) Vomiting and diarrhea Status: Acute (23) Weakness Status: Acute Review of Systems Constitutional: + weakness, + fatigue Respiratory: + dyspnea on exertion Cardiac: + edema All Other Systems: Reviewed and Negative Medications Current Inpatient Medications Medications (Trade) Dose Ordered Sig/Leslee Route Start Time Stop Time Status Last Admin Dose Admin Heparin Sodium (Porcine) (Heparin Sq 5000 Unit/0.5ml) 5,000 unit Q12 SQ 06/25/17 21:00 07/25/17 20:59 06/26/17 08:37 5,000 UNIT Acetaminophen (Tylenol Tab) 650 mg Q4H PRN PO 06/25/17 17:15 07/25/17 17:14 Aspirin (Ecotrin Tab) 81 mg QAM PO 06/26/17 09:00 07/26/17 08:59 06/26/17 08:34 81 MG Budesonide/ Formoterol Fumarate (Symbicort 160/ 4.5 Inh) 2 puffs BID INH 06/25/17 21:00 07/25/17 20:59 06/26/17 08:41 2 PUFFS Docusate Sodium (coLACE CAP) 100 mg BID PO 06/25/17 21:00 07/25/17 20:59 06/26/17 08:33 100 MG Escitalopram Oxalate (Lexapro Tab) 5 mg DAILY PO 06/26/17 09:00 07/26/17 08:59 06/26/17 08:37 5 MG Insulin Glargine (Lantus Solostar Pen) 10 units QPM SC 06/25/17 21:00 07/25/17 20:59 06/25/17 22:11 10 UNITS Levothyroxine Sodium (Synthroid Tab) 50 mcg DAILYBB PO 06/26/17 06:00 07/26/17 05:59 06/26/17 06:17 50 MCG Lorazepam (Ativan Tab) 0.5 mg BID PO 06/25/17 21:00 07/25/17 20:59 06/26/17 08:33 0.5 MG Magnesium Oxide (Mag-Ox Tab) 400 mg QAM PO 06/26/17 09:00 07/26/17 08:59 06/26/17 08:35 400 MG Metoprolol Tartrate (Lopressor Tab) 100 mg BID PO 06/25/17 21:00 07/25/17 20:59 06/26/17 08:35 100 MG Nitroglycerin (Nitrostat Tab) 0.4 mg UD PRN UT 06/25/17 17:15 07/25/17 17:14 Cholecalciferol (Vitamin D Tab) 1,000 inter.unit QAM PO 06/26/17 09:00 07/26/17 08:59 06/26/17 08:34 1,000 INTER.UNIT Cyanocobalamin (Vitamin B-12 Tab) 1,000 mcg QAM PO 06/26/17 09:00 07/26/17 08:59 06/26/17 08:34 1,000 MCG Diltiazem HCl (Cardizem Cd Cap) 240 mg QAM PO 06/26/17 09:00 07/26/17 08:59 06/26/17 08:33 240 MG Ferrous Sulfate (Feosol Tab) 325 mg QAM PO 06/26/17 09:00 07/26/17 08:59 06/26/17 08:37 325 MG Pantoprazole Sodium (Protonix Tab) 40 mg QAM PO 06/26/17 09:00 07/26/17 08:59 06/26/17 08:34 40 MG Fluticasone Propionate (Flonase Nasal [place]) 2 sprays DAILY NA 06/26/17 09:00 07/26/17 08:59 06/26/17 08:41 2 SPRAYS Albuterol/ Ipratropium (Duoneb) 3 ml QIDR PRN INH 06/25/17 17:15 07/25/17 17:14 Insulin Aspart (novoLOG ASPART) SLIDING SCALE If C... ACHS SC 06/25/17 21:00 07/25/17 20:59 06/26/17 12:42 1 UNITS Morphine Sulfate (MoRPHine SULFATE INJ) 2 mg Q4H PRN IV 06/25/17 17:30 07/09/17 17:29 Glucose (Glucose 40% Gel) 15-30 GRAMS 15 GRAMS... UD PRN PO 06/25/17 19:00 07/25/17 18:59 Glucose (Glucose Chew Tab) 4-8 Tablets 4 Tabl... UD PRN PO 06/25/17 19:00 07/25/17 18:59 Dextrose (Dextrose 50% 50ML Syringe) 25-50ML OF 50% DW IV FOR... UD PRN IV 06/25/17 19:00 07/25/17 18:59 Glucagon (Glucagon Inj) 1 mg UD PRN SQ 06/25/17 19:00 07/25/17 18:59 Miscellaneous (Iv Fluids Completed) 1 ea PRN PRN N/A 06/25/17 21:00 06/25/18 20:59 Objective Vital Signs Date Time Temp Pulse Resp B/P (MAP) Pulse Ox O2 Delivery O2 Flow Rate FiO2 06/26/17 12:00 Room Air 06/26/17 12:00 Room Air 06/26/17 11:50 36.8 62 18 134/68 (90) 95 06/26/17 09:51 Room Air 06/26/17 08:12 36.9 72 16 130/93 (105) 99 06/26/17 08:00 Room Air 06/26/17 04:00 36.4 60 17 178/76 (110) 94 Room Air 06/26/17 04:00 94 Room Air 06/26/17 00:03 37.2 61 17 170/73 (105) 93 Room Air 06/25/17 23:59 94 Room Air 06/25/17 20:00 94 Room Air 06/25/17 19:32 37.3 60 20 142/83 (102) 95 Room Air 06/25/17 18:17 36.7 63 20 147/86 97 Room Air 06/25/17 18:02 60 155/66 97 06/25/17 17:30 63 141/64 96 Room Air 06/25/17 16:05 60 20 149/71 100 Nasal Cannula 4.0 Physical Exam General Appearance: WD/WN, no apparent distress Eyes: normal inspection, EOMI, sclerae normal ENT: normal ENT inspection, hearing grossly normal, pharynx normal Neck: supple, no adenopathy, no JVD, trachea midline Respiratory/Chest: chest non-tender, no respiratory distress, no accessory muscle use, + decreased breath sounds, + crackles (bases) Cardiovascular: regular rate, rhythm, no gallop, no JVD, no murmur Abdomen: normal bowel sounds, non tender, soft, no organomegaly Extremities: normal range of motion, non-tender, normal inspection, no calf tenderness, normal capillary refill, pelvis stable, + pedal edema Neurologic/Psychiatric: piano stringer II-XII nml as tested, alert, normal mood/affect, oriented x 3, + motor weakness Skin: normal color, warm/dry, no rash Laboratory Results Last 24 Hours Test 06/25/17 15:25 06/25/17 15:27 06/25/17 18:35 06/25/17 20:38 Bedside Hemoglobin 11.9 g/dl Bedside Hematocrit 35 % Bedside Sodium 129 mEq/L Bedside Potassium 5.3 mEq/L Bedside Chloride 97 mEq/L Bedside Total CO2 24 mEq/l Anion Gap 14.0 mmol/L Bedside Blood Urea Nitrogen 56 mg/dl Bedside Creatinine 2.5 mg/dl Bedside Glucose (other) 195 mg/dl Bedside Ionized Calcium (Josie) 1.10 mmol/l Bedside Troponin I < 0.030 ng/ml Troponin I 0.021 ng/ml Bedside Glucose 130 mg/dl Test 06/25/17 22:10 06/25/17 23:22 06/26/17 05:25 06/26/17 07:11 Urine Color YELLOW Urine Appearance CLEAR Urine pH 5.0 Urine Specific [place] 1.012 Urine Protein 1+ Urine Glucose (UA) NEG Urine Ketones NEG Urine Occult Blood NEG Urine Nitrite NEG Urine Bilirubin NEG Urine Urobilinogen NEG Urine Leukocyte Esterase NEG Urine WBC (Auto) 1-5 /hpf Urine RBC (Auto) 0-4 /hpf Urine Hyaline Casts (Auto) 1-5 /lpf Urine Epithelial Cells (Auto) >30 /lpf Urine Bacteria (Auto) NEG Troponin I 0.015 ng/ml 0.017 ng/ml White Blood Count 6.80 K/uL Red Blood Count 4.09 M/uL Hemoglobin 11.8 g/dL Hematocrit 35.5 % Mean Corpuscular Volume 86.8 fL Mean Corpuscular Hemoglobin 28.9 pg Mean Corpuscular Hemoglobin Concent 33.2 g/dl RDW Standard Deviation 43.6 fL RDW Coefficient of Variation 13.7 % Platelet Count 233 K/uL Mean Platelet Volume 8.8 fL Sodium Level 131 mmol/L Potassium Level 4.3 mmol/L Chloride Level 99 mmol/L Carbon Dioxide Level 24 mmol/L Anion Gap 8.0 mmol/L Blood Urea Nitrogen 58 mg/dl Creatinine 2.33 mg/dl Est Creatinine Clear Calc Drug Dose 16.1 ml/min Estimated GFR () 21.0 Estimated GFR (Non- 18.1 BUN/Creatinine Ratio 24.9 Random Glucose 66 mg/dl Calcium Level 8.5 mg/dl Bedside Glucose 59 mg/dl Test 06/26/17 07:28 06/26/17 11:31 Bedside Glucose 85 mg/dl 155 mg/dl Assessment and Plan Ms. Gil is an 87 year old woman here for chest pain, increased dyspnea, weight gain after stopping lasix as outpatient - Acute on chronic systolic HF will repeat echo, h/o of EF of 45% mild diuresis give Lasix 40mg IV daily and follow output and weight cardiology consulted - CKD stage III/IV: nephrology following Cr up to 2.33 with Lasix use, will continue diuresis for now follows with nephrology in [place] electrolytes improved, K is normal and Na up to 131 Hyponatremia - improved to 131 Hyperkalemia - K was 5.3, down to below 5 today with Lasix use DMII - bsgs ac & hs - continue home lantus 10 units HS - SS - monitor for hypoglycemia COPD - continue Symbicort - prn duonebs for sob Anxiety - continue Lexapro Urinary Frequency - U/A shows no signs of infection - post void residual on US was 400, perhaps she has some overflow incontinence DNR Heparin subq, scds
--- NOTE | 2017-06-26 16:05 | ECHOCARDIOGRAM REPORT ---
*NOTICE TO RECEIVING DEMOCRAT AGENCY This information is strictly Confidential and protected under [place] law. [place] law prohibits you from making any further disclosure of this information unless further disclosure is expressly permitted by the written consent of the person to whom it pertains or is authorized by law. A general authorization for the release of medical or other information is not sufficient for this purpose. Hospital accepts no responsibility if the information is made available to any other person, INCLUDING THE PATIENT. Interpretation Summary * Name: KYE BROWN Study Date: 06/26/2017 09:42 AM BP: 130/93 mmHg * Patient Location: [facility] HR: 60 * : 1930 (M/d/yyyy) Gender: Female Height: 63 in * Age: 87 yrs Ethnicity: [place] Weight: 175 lb * Ordering Physician: Ana Downs * Referring Physician: Self, Referred * Performed By: Arely Muñoz RCS * * Reason For Study: CHF * BSA: 1.8 m2 * -- Conclusions -- * 1. Borderline dilated LV. Moderate concentric LVH. * 2. LVEF 40-45%. Severe hypokinesis of inferior, septal base to mid wall. Otherwise mild global hypokinesis. * 3. Normal RV size mild RV dysfunction * 4. Moderate to severe mitral regurgitation * 5. Moderate tricuspid regurgitation * 5. Severe pulmonary hypertension. Estimated PASP 60-65 mmHg * 6. Grade 2 diastolic dysfunction * 7. Compared with prior study on 04/04/2016: Mitral regurgitation has progressed, now moderate to severe. Severe pulmonary hypertension is new. Procedure Details * A complete two-dimensional transthoracic echocardiogram was performed (2D, M-mode, Doppler and color flow Doppler). Left Ventricle * The left ventricle is borderline dilated. * There is moderate concentric left ventricular hypertrophy. * Ejection Fraction = 40-45%. * Paradoxical septal motion * There is severe inferior wall hypokinesis. Right Ventricle * There is a pacemaker lead in the right ventricle. * The right ventricle is normal size. * The right ventricular systolic function is mildly reduced. Atria * The left atrium is severely dilated. * The right atrium is mildly dilated. * No ASD detected; PFO is not assessed. Mitral Valve * There is moderate mitral annular calcification. * The mitral valve leaflets appear thickened, but open well. * There is no mitral valve stenosis. * There is moderate to severe mitral regurgitation. Tricuspid Valve * There is moderate tricuspid regurgitation. * Right ventricular systolic pressure is elevated at >60mmHg. Aortic Valve * The aortic valve opens well. * Aortic valve sclerosis mild, without significant aortic valvular stenosis. * The aortic valve is trileaflet. * No hemodynamically significant valvular aortic stenosis. * There is no significant aortic regurgitation. Pulmonic Valve * The pulmonary valve is inadequately visualized, but the Doppler data is adequate for interpretation. * There is no pulmonic valvular stenosis. * Mild to moderate pulmonic valvular regurgitation. Great Vessels * The aortic root and proximal ascending aorta are normal sized. Pericardium/Pleural * There is no pericardial effusion. Great Vessels * Est RA 8 mmHg. IVC < 2.1, < 50% change with respiration. Left Ventricular Diastolic Function * Diastolic dysfunction, Grade II (pseudonormalization pattern). MMode 2D Measurements and Calculations IVSd 1.3 cm IVSs 1.8 cm LVIDd 5.3 cm LVIDs 4.3 cm LVPWd 1.3 cm LVPWs 1.5 cm IVS/LVPW 0.99 FS 19.3 % EDV(Teich) 135.9 ml ESV(Teich) 82.4 ml EF(Teich) 39.4 % EDV(cubed) 149.7 ml ESV(cubed) 78.7 ml EF(cubed) 47.4 % % IVS thick 37.7 % % LVPW thick 18.5 % LV mass(C)d 281.4 grams LV mass(C)dI 154.0 grams/m\S\2 LV mass(C)s 295.1 grams LV mass(C)sI 161.5 grams/m\S\2 SV(Teich) 53.5 ml SI(Teich) 29.3 ml/m\S\2 SV(cubed) 71.0 ml SI(cubed) 38.9 ml/m\S\2 Ao root diam 2.7 cm Ao root area 5.7 cm\S\2 ACS 1.8 cm LA dimension 3.8 cm LA/Ao 1.4 LVOT diam 2.0 cm LVOT area 3.0 cm\S\2 LVAd ap4 30.7 cm\S\2 LVLd ap4 8.1 cm EDV(MOD-sp4) 94.4 ml EDV(sp4-el) 98.9 ml LVAs ap4 22.3 cm\S\2 LVLs ap4 7.0 cm ESV(MOD-sp4) 60.3 ml ESV(sp4-el) 59.8 ml EF(MOD-sp4) 36.1 % EF(sp4-el) 39.5 % LVAd ap2 33.6 cm\S\2 LVLd ap2 8.1 cm EDV(MOD-sp2) 115.2 ml EDV(sp2-el) 118.7 ml LVAs ap2 20.3 cm\S\2 LVLs ap2 6.2 cm ESV(MOD-sp2) 53.5 ml ESV(sp2-el) 56.3 ml EF(MOD-sp2) 53.5 % EF(sp2-el) 52.6 % LVLd %diff -0.64 % EDV(MOD-bp) 105.3 ml LVLs %diff -13.53 % ESV(MOD-bp) 58.5 ml EF(MOD-bp) 44.4 % SV(MOD-sp4) 34.1 ml SI(MOD-sp4) 18.6 ml/m\S\2 SV(MOD-sp2) 61.7 ml SI(MOD-sp2) 33.7 ml/m\S\2 SV(MOD-bp) 46.8 ml SI(MOD-bp) 25.6 ml/m\S\2 SV(sp4-el) 39.0 ml SI(sp4-el) 21.4 ml/m\S\2 SV(sp2-el) 62.4 ml SI(sp2-el) 34.1 ml/m\S\2 Doppler Measurements and Calculations MV E max yumiko 110.0 cm/sec MV A max yumiko 47.5 cm/sec MV E/A 2.3 MV P1/2t max yumiko 127.1 cm/sec MV P1/2t 77.5 msec MVA(P1/2t) 2.8 cm\S\2 MV dec slope 480.4 cm/sec\S\2 MV dec time 0.21 sec Ao V2 max 123.3 cm/sec Ao max PG 6.1 mmHg Ao max PG (full) 4.5 mmHg MELONIE(V,A) 1.6 cm\S\2 MELONIE(V,D) 1.6 cm\S\2 LV V1 max PG 1.6 mmHg LV V1 max 63.6 cm/sec MR max yumiko 570.5 cm/sec MR max PG 130.2 mmHg PA V2 max 82.2 cm/sec PA max PG 2.7 mmHg PI max yumiko 224.7 cm/sec PI max PG 20.2 mmHg PI dec slope 59.0 cm/sec\S\2 PI P1/2t 1116.2 msec TR max yumiko 339.7 cm/sec
[2017-06-26] MEDS: INSULIN GLARGINE SOLOSTAR 100 UNITS/ML 3 ML PEN SC SCH (21:19)
[2017-06-27] VITALS (10 sets, daily range): BP systolic 132–147; BP diastolic 57–68; PULSE 60–61; TEMP 36.7–37.2; O2SAT 92–97; Ht 160 cm; Wt 70.6 kg
[2017-06-27] MEDS: ALBUT/IPRATROP 3MG/0.5MG NEB 3 ML VIAL INH PRN (03:14)
[2017-06-27] MEDS: ACETAMINOPHEN 325 MG TAB PO PRN (03:44)
[2017-06-27] MEDS: LEVOTHYROXINE 50 MCG TAB PO SCH (06:32)
[2017-06-27 06:53] LABS: HEMATOCRIT 33.7 % (37-47); HEMOGLOBIN 11.2 g/dL (12.0-16.0); MEAN CELL VOLUME 86.9 fL (80-100); MEAN CORPUSCULAR HEMOGLOBIN 28.9 pg (25-34); MEAN CORPUSCULAR HGB CONC 33.2 g/dl (32-36); MEAN PLATELET VOLUME 8.7 fL (7.4-10.4); PLATELET COUNT 231 K/uL (130-400); RED CELL DISTRIBUTION WIDTH CV 13.7 % (11.5-14.5); WHITE BLOOD COUNT 6.37 K/uL (4.8-10.8)
[2017-06-27] MEDS: INSULIN ASPART 100 UNITS/ML 3 ML PEN SC SCH ×4 (07:00→20:53)
[2017-06-27 07:25] LABS: CALCIUM 8.2 mg/dl (8.5-10.1); CREATININE 2.19 mg/dl (0.60-1.20); POTASSIUM 4.4 mmol/L (3.5-5.1)
[2017-06-27] MEDS: PANTOprazole SOD 40 MG TAB PO SCH (08:44)
[2017-06-27] MEDS: FLUTICASONE PROPIONATE NA SPR 16 GM BTL SCH (08:44)
[2017-06-27] MEDS: BUDESONIDE/FORMOTEROL FUMARATE 160/4.5 60 PUFFS/INHALER INH SCH ×2 (08:44→20:46)
[2017-06-27] MEDS: CHOLECALCIFEROL 1000 INTER.UNIT TAB PO SCH (08:46)
[2017-06-27] MEDS: LORAZEPAM 0.5 MG TAB PO SCH ×2 (08:47→20:54)
[2017-06-27] MEDS: DOCUSATE SODIUM 100 MG CAP PO SCH ×2 (08:48→20:44)
[2017-06-27] MEDS: ESCITALOPRAM OXALATE 10 MG TAB PO SCH (08:49)
[2017-06-27] MEDS: FERROUS SULFATE 325 MG TAB PO SCH (08:49)
[2017-06-27] MEDS: METOPROLOL TARTRATE 100 MG TAB PO SCH ×2 (08:49→20:44)
[2017-06-27] MEDS: CYANOCOBALAMIN 500 MCG TAB (VIT B-12) PO SCH (08:49)
[2017-06-27] MEDS: MAGNESIUM OXIDE 400 MG TAB PO SCH (08:50)
[2017-06-27] MEDS: ASPIRIN 81 MG ECTAB PO SCH (08:50)
[2017-06-27] MEDS: DILTIAZEM HCL 240 MG CAPCR PO SCH (08:50)
[2017-06-27] MEDS: HEPARIN SOD 5000 UNIT/0.5 ML CARP SQ SCH ×2 (08:52→20:54)
[2017-06-27] MEDS ORDERED: FUROSEMIDE 40 MG TAB PO SCH (09:00)
--- NOTE | 2017-06-27 09:05 | Cardiology Follow-Up ---
Subjective Date of Service: Jun 27, 2017. Pt evaluation today including: conversation w/ patient, physical exam, lab review, review of studies, review of inpatient medication list History of Present Illness This is a very pleasant 87-year-old woman who has known coronary disease including bypass surgery in 2006 and intervention in 2009. She also has a pacemaker in place, this is a [employer] device implanted in 2012, I believe for sick sinus syndrome. She had evaluation for chest discomfort in April 2014, her echocardiogram demonstrated normal left ventricular function and this was felt to be musculoskeletal and not due to coronary disease. She then had admission on December 29, 2014 for shortness of breath, this was felt to be due to a respiratory infection. This was treated and she was discharged, however at home she apparently continued to feel poorly. She also has a history of atrial fibrillation a, she was on warfarin years ago but apparently after conversation with her accounts receivable collector (Dr. Guido) and her difficulty with handling the warfarin it was decided to keep her off of anti coagulation. It was not clear to me how much time she spends an atrial fibrillation, her pacemaker does monitor for atrial fibrillation and in early December 2014 when she was here interrogation showed that she had about 50 percent of the time in atrial fibrillation although that can be unreliable. She was in sinus rhythm when she was here in August of 2013 and in April of 2014. She seems to be asymptomatic during the arrhythmia. I believe I had started her on Eliquis at the time for stroke prevention. She tells me that since then her accounts receivable collector has told her that she should be on aspirin, not an anticoagulant. She is now admitted with chest discomfort. She describes chest discomfort associated with severe shortness of breath, the symptoms have been worse recently and she also describes feeling very tired and fatigued. Cardiac enzymes have been negative. She has not had chest discomfort in the hospital but does not get it without exertion. Today she is still complaining of feeling weak, she has not had chest discomfort and she admits to feeling better than when she presented. Social History Smoking Status: Never Smoker History of Alcohol Use: No Review of Systems Respiratory: + dyspnea on exertion Cardiac: + edema Medications Cardiovascular: Item Value Date Time Furosemide 40 mg 06/27/17 0900 (Lasix Tab) QAM/PO Aspirin 81 mg 06/26/17 0900 (Ecotrin Tab) QAM/PO 06/26/17 0834 Diltiazem HCl 240 mg 06/26/17 0900 (Cardizem Cd Cap) QAM/PO 06/26/17 0833 Metoprolol 100 mg 06/25/17 2100 Tartrate BID/PO 06/26/172110 (Lopressor Tab) Objective Vital Signs Past 12 Hours Date Time Temp Pulse Resp B/P (MAP) Pulse Ox O2 Delivery O2 Flow Rate FiO2 06/27/17 08:10 36.9 60 18 138/58 (84) 96 06/27/17 04:47 36.8 61 17 147/61 (89) 92 Room Air 06/27/17 04:00 92 Room Air 06/27/17 03:14 60 20 97 Room Air 06/27/17 00:00 93 Room Air 06/27/17 00:00 37.2 60 28 145/68 (93) 93 Room Air Last Recorded Weight-Kilograms: 73.000 Physical Exam Constitutional: General Apperance: heathly-appearing Level of Distress: NAD Lungs: Respiratory effort: no dyspnea, good air movement Auscultation: breath sounds normal, no wheezing Cardiovascular: Heart Auscultation: RRR, no rubs, no gallops, II/ WSM Peripheral Pulses: Bruits: none appreciated Extremities: no edema Data Laboratory Results: Last 24 Hours Test 06/26/17 11:31 06/26/17 16:20 06/26/17 20:02 06/27/17 06:00 Bedside Glucose 155 mg/dl 130 mg/dl 109 mg/dl White Blood Count 6.37 K/uL Red Blood Count 3.88 M/uL Hemoglobin 11.2 g/dL Hematocrit 33.7 % Mean Corpuscular Volume 86.9 fL Mean Corpuscular Hemoglobin 28.9 pg Mean Corpuscular Hemoglobin Concent 33.2 g/dl RDW Standard Deviation 43.0 fL RDW Coefficient of Variation 13.7 % Platelet Count 231 K/uL Mean Platelet Volume 8.7 fL Sodium Level 133 mmol/L Potassium Level 4.4 mmol/L Chloride Level 100 mmol/L Carbon Dioxide Level 25 mmol/L Anion Gap 8.0 mmol/L Blood Urea Nitrogen 55 mg/dl Creatinine 2.19 mg/dl Est Creatinine Clear Calc Drug Dose 17.0 ml/min Estimated GFR () 22.6 Estimated GFR (Non- 19.5 BUN/Creatinine Ratio 25.0 Random Glucose 75 mg/dl Calcium Level 8.2 mg/dl Test 06/27/17 06:32 Bedside Glucose 79 mg/dl Telemetry reviewed: Atrial pacing, no atrial fibrillation Echocardiogram: This shows moderate left ventricular dysfunction, severe pulmonary hypertension, moderate to severe mitral regurgitation. Assessment and Plan 1. Chest discomfort: She has a history of coronary disease so this certainly could be a symptom of progression, however it is associated with shortness of breath and so could be secondary to that as well. She may have some element of fluid retention. I am a little bit reluctant to consider invasive evaluation with no objective evidence of ischemia (negative enzymes) however her electrocardiogram cannot be read due to the presence of a left bundle branch block. She does have some degree of left ventricular dysfunction but she has other problems which are probably more compelling. I would treat her medically at this point and not consider invasive evaluation unless her symptoms become intractable. 2. Shortness of breath: Her shortness of breath could be an anginal equivalent , she does not have a lot of heart failure identified on exam or on chest x-ray however her BNP was elevated and with her kidney function she may have had fluid retention. She seems to be responding symptomatically to diuresis, I would continue to that until her creatinine worsens. Her creatinine has actually improved somewhat here in the hospital. 3. Atrial fibrillation: She has a history of atrial fibrillation, I did not interrogate her pacemaker to see if that remains. If it does she falls in the category where anticoagulation would be recommended, although the bleeding risk does go up substantially with adding an anticoagulant to aspirin. I have not addressed this at this time as it has evidently been addressed by her accounts receivable collector. 4. Pacemaker: Her pacemaker is atrially pacing virtually all the time on telemetry, it appears appropriate. She evidently gets regular pacemaker evaluations through her accounts receivable collector, therefore I have not done that. 5. Moderate to severe mitral regurgitation: Her mitral regurgitation has progressed since our last evaluation, however I do not believe she is a candidate for repair. I would treat this medically as you with diuresis. 6. Severe pulmonary hypertension: There is little that can be done with this, this may be related to her shortness of breath and perhaps underlying lung disease as well as mitral regurgitation. I doubt there is much reversible component and I do not think further evaluation is warranted. This may respond to diuresis. Thank you for allowing me to participate in her care.
--- NOTE | 2017-06-27 09:23 | Nephrology Progress Note ---
Nephrology Progress Note Date of Service Jun 27, 2017. Chief Complaint Acute renal insufficiency Subjective Lisa's breathing has improved slightly. She is resting comfortably in bed this morning. Chest pain has improved. She now describes some tenderness on the left side over her pacemaker. She denies any pleuritic chest pain or otherwise exacerbating factors. She denies palpitations. She continues to have orthopnea. She denies lightheadedness or dizziness. Lisa is having some degree of urinary retention but she denies any symptoms of this. She denies significant frequency or incontinence. She denies a sensation of incomplete void. No dysuria or discomfort. Review of Systems A complete review of systems was performed. Pertinent positives are noted above. All other systems are negative. Vital Signs Last 8 Hrs Date Time Temp Pulse Resp B/P (MAP) Pulse Ox O2 Delivery O2 Flow Rate FiO2 06/27/17 08:10 36.9 60 18 138/58 (84) 96 06/27/17 04:47 36.8 61 17 147/61 (89) 92 Room Air 06/27/17 04:00 92 Room Air 06/27/17 03:14 60 20 97 Room Air Last Recorded Weight Weight (Kilograms): 73.000 Physical Exam General Appearance: no apparent distress, + thin Head: normocephalic, atraumatic Eyes: normal inspection, sclerae normal ENT: normal ENT inspection, pharynx normal Neck: supple, + JVD Respiratory/Chest: no respiratory distress, no accessory muscle use, + rales Cardiovascular: no gallop, + bradycardia, + systolic murmur Back: no CVA tenderness Abdomen/GI: non tender, soft Extremities/Musculoskelatal: normal inspection, no pedal edema Neurologic/Psych: alert, normal mood/affect Family History Omitted secondary to age Social History Smokeless Tobacco Use: No Alcohol Use: none Drug Use: none Marital Status: Housing Status: assisted living ([facility]) Occupation: retired Laboratory Results Past 24 Hours 06/27/17 06:00 06/27/17 06:00 Test 06/26/17 11:31 06/26/17 16:20 06/26/17 20:02 06/27/17 06:00 Bedside Glucose 155 mg/dl (70-90) 130 mg/dl (70-90) 109 mg/dl (70-90) Red Blood Count 3.88 M/uL (4.2-5.4) Mean Corpuscular Volume 86.9 fL (80-100) Mean Corpuscular Hemoglobin 28.9 pg (25-34) Mean Corpuscular Hemoglobin Concent 33.2 g/dl (32-36) RDW Standard Deviation 43.0 fL (36.4-46.3) RDW Coefficient of Variation 13.7 % (11.5-14.5) Mean Platelet Volume 8.7 fL (7.4-10.4) Anion Gap 8.0 mmol/L (3-11) Est Creatinine Clear Calc Drug Dose 17.0 ml/min Estimated GFR () 22.6 Estimated GFR (Non- 19.5 BUN/Creatinine Ratio 25.0 (10-20) Calcium Level 8.2 mg/dl (8.5-10.1) Test 06/27/17 06:32 Bedside Glucose 79 mg/dl (70-90) Allergies Coded Allergies: Fenofibrate (Verified Allergy, Intermediate, rash, 05/07/17) Amoxicillin (Verified Allergy, Unknown, UNKNOWN, 05/07/17) Calcium Carbonate (Verified Allergy, Unknown, ., 06/27/17) Ciprofloxacin (Verified Allergy, Unknown, ., 06/27/17) Diphenhydramine (Verified Allergy, Unknown, ., 06/27/17) Fexofenadine (Verified Allergy, Unknown, UNKNOWN, 05/07/17) Irbesartan (Verified Allergy, Unknown, UNKNOWN, 05/07/17) Lidocaine (Verified Allergy, Unknown, ., 06/27/17) Niacin (Verified Allergy, Unknown, RASH, 05/07/17) Nystatin (Verified Allergy, Unknown, ., 06/27/17) Penicillins (Verified Allergy, Unknown, UNKNOWN, 05/07/17) Sulfa Antibiotics (Verified Allergy, Unknown, UNKNOWN, 05/07/17) Flumazenil (Verified Adverse Reaction, Intermediate, DELIRIUM, 06/27/17) anxious, increased heart rate, increased blood pressure Tomato (Verified Adverse Reaction, Unknown, GI SYMPTOMS, 06/27/17) Medications Current Inpatient Medications Medications (Trade) Dose Ordered Sig/Leslee Route Start Time Stop Time Status Last Admin Dose Admin Heparin Sodium (Porcine) (Heparin Sq 5000 Unit/0.5ml) 5,000 unit Q12 SQ 06/25/17 21:00 07/25/17 20:59 06/27/17 08:52 5,000 UNIT Acetaminophen (Tylenol Tab) 650 mg Q4H PRN PO 06/25/17 17:15 07/25/17 17:14 06/27/17 03:44 650 MG Aspirin (Ecotrin Tab) 81 mg QAM PO 06/26/17 09:00 07/26/17 08:59 06/27/17 08:50 81 MG Budesonide/ Formoterol Fumarate (Symbicort 160/ 4.5 Inh) 2 puffs BID INH 06/25/17 21:00 07/25/17 20:59 06/27/17 08:44 2 PUFFS Docusate Sodium (coLACE CAP) 100 mg BID PO 06/25/17 21:00 07/25/17 20:59 06/27/17 08:48 100 MG Escitalopram Oxalate (Lexapro Tab) 5 mg DAILY PO 06/26/17 09:00 07/26/17 08:59 06/27/17 08:49 5 MG Insulin Glargine (Lantus Solostar Pen) 10 units QPM SC 06/25/17 21:00 07/25/17 20:59 06/26/17 21:19 10 UNITS Levothyroxine Sodium (Synthroid Tab) 50 mcg DAILYBB PO 06/26/17 06:00 07/26/17 05:59 06/27/17 06:32 50 MCG Lorazepam (Ativan Tab) 0.5 mg BID PO 06/25/17 21:00 07/25/17 20:59 06/27/17 08:47 0.5 MG Magnesium Oxide (Mag-Ox Tab) 400 mg QAM PO 06/26/17 09:00 07/26/17 08:59 06/27/17 08:50 400 MG Metoprolol Tartrate (Lopressor Tab) 100 mg BID PO 06/25/17 21:00 07/25/17 20:59 06/27/17 08:49 100 MG Nitroglycerin (Nitrostat Tab) 0.4 mg UD PRN UT 06/25/17 17:15 07/25/17 17:14 Cholecalciferol (Vitamin D Tab) 1,000 inter.unit QAM PO 06/26/17 09:00 07/26/17 08:59 06/27/17 08:46 1,000 INTER.UNIT Cyanocobalamin (Vitamin B-12 Tab) 1,000 mcg QAM PO 06/26/17 09:00 07/26/17 08:59 06/27/17 08:49 1,000 MCG Diltiazem HCl (Cardizem Cd Cap) 240 mg QAM PO 06/26/17 09:00 07/26/17 08:59 06/27/17 08:50 240 MG Ferrous Sulfate (Feosol Tab) 325 mg QAM PO 06/26/17 09:00 07/26/17 08:59 06/27/17 08:49 325 MG Pantoprazole Sodium (Protonix Tab) 40 mg QAM PO 06/26/17 09:00 07/26/17 08:59 06/27/17 08:44 40 MG Fluticasone Propionate (Flonase Nasal [place]) 2 sprays DAILY NA 06/26/17 09:00 07/26/17 08:59 06/27/17 08:44 2 SPRAYS Albuterol/ Ipratropium (Duoneb) 3 ml QIDR PRN INH 06/25/17 17:15 07/25/17 17:14 06/27/17 03:14 3 ML Insulin Aspart (novoLOG ASPART) SLIDING SCALE If C... ACHS SC 06/25/17 21:00 07/25/17 20:59 06/26/17 12:42 1 UNITS Morphine Sulfate (MoRPHine SULFATE INJ) 2 mg Q4H PRN IV 06/25/17 17:30 07/09/17 17:29 Glucose (Glucose 40% Gel) 15-30 GRAMS 15 GRAMS... UD PRN PO 06/25/17 19:00 07/25/17 18:59 Glucose (Glucose Chew Tab) 4-8 Tablets 4 Tabl... UD PRN PO 06/25/17 19:00 07/25/17 18:59 Dextrose (Dextrose 50% 50ML Syringe) 25-50ML OF 50% DW IV FOR... UD PRN IV 06/25/17 19:00 07/25/17 18:59 Glucagon (Glucagon Inj) 1 mg UD PRN SQ 06/25/17 19:00 5/3/18 18:59 Miscellaneous (Iv Fluids Completed) 1 ea PRN PRN N/A 06/25/17 21:00 06/25/18 20:59 Furosemide (Lasix Tab) 40 mg QAM PO 06/27/17 09:00 07/27/17 08:59 Impression (1) Acute exacerbation of CHF (congestive heart failure) (2) Acute kidney injury (3) CKD (chronic kidney disease) (4) DM (diabetes mellitus) (5) SOB (shortness of breath) (6) Atrial fibrillation (7) Bladder outflow obstruction (8) Hypertension (9) Severe mitral regurgitation (10) Moderate to severe pulmonary hypertension Lisa is an 87-year-old female with coronary artery disease, CKD IV , hypertension, diabetes mellitus II, and atrial fibrillation/SSS with diastolic CHF. Renal US did not demonstrate hydronephrosis however a PVR >400 ml was appreciated. Straight cath was performed to drain the bladder completely. Repeat analysis has documented PVR of ~250 ml. Lisa has no urinary complaints. Urine analysis is bland and microscopy is acellular. Metabolic profile is otherwise normal. TTE documented normal LV systolic function, moderate to severe mitral regurgitation and moderate TR with severe pulmonary hypertension (PASP 60-65 mmHg). KYLEIGH is consistent with cardiorenal syndrome. Creatinine has improved slightly with diuresis. She has urinary retention but did not have hydronephrosis or any findings to suggest a significant post obstructive component to KYLEIGH. Patient had [place] with [facility] [place] urinary obstruction until 2014. At that time, the finding was attributed largely to use of opiate pain medications. Urology follow up would be appropriate at this time. Continue furosemide to encourage net negative fluid balance. Furosemide 40 mg PO BID started today. I&O's will be monitored. Metabolic profile should be monitored daily. Recommendations -- Furosemide 40 mg PO BID -- Document I/O's -- Continue to monitor PVR -- Urology follow up to be determined -- Renal diet, low sodium -- Keep feet elevated -- Appreciate cardiology consult notably regarding valvular heart disease -- Repeat metabolic profile tomorrow AM
--- NOTE | 2017-06-27 12:17 | Progress Note ---
Subjective Date of Service: Jun 27, 2017. Subjective Pt evaluation today including: conversation w/ patient, physical exam, lab review, conversation w/ health consultant, review of inpatient medication list Pain: no pain PO Intake: adequate Voiding: voiding difficulty patient feels a little better today, breathing improved c/o a cough, feels nauseated but no vomiting discussed urinary retention, used to follow with Dr. Adames, had retention thought to be due to opioids discussed with Dr. Jim reviewed echo, EF 40-45%, moderate to severe MR, severe pulmonary hypertension reviewed labs, Cr 2.19, actually down after Lasix Problem List Medical Problems: (1) Acute bronchitis Status: Acute (2) Altered mental status Status: Acute (3) Anemia Status: Acute (4) Atypical chest pain Status: Acute (5) CKD (chronic kidney disease) Status: Chronic (6) Degenerative disc disease, cervical Status: Acute (7) E86.0 Status: Acute (8) Edema Status: Acute (9) EKG, abnormal Status: Acute (10) Hyperglycemia Status: Acute (11) Hyperglycemia due to type 2 diabetes mellitus Status: Acute (12) Hyponatremia Status: Acute (13) Incarcerated right inguinal hernia Status: Acute (14) Left leg cellulitis Status: Acute (15) Leukocytosis Status: Acute (16) Pneumonia Status: Acute (17) Pneumonitis Status: Acute (18) Pneumonitis Status: Acute (19) Respiratory distress Status: Acute (20) Small bowel obstruction Status: Acute (21) UTI (urinary tract infection) Status: Acute (22) Vomiting and diarrhea Status: Acute (23) Weakness Status: Acute Review of Systems Constitutional: + weakness, + fatigue Respiratory: + cough, + dyspnea on exertion Abdomen: + nausea Neurologic: + weakness, + balance problems All Other Systems: Reviewed and Negative Medications Current Inpatient Medications Medications (Trade) Dose Ordered Sig/Leslee Route Start Time Stop Time Status Last Admin Dose Admin Heparin Sodium (Porcine) (Heparin Sq 5000 Unit/0.5ml) 5,000 unit Q12 SQ 06/25/17 21:00 07/25/17 20:59 06/27/17 08:52 5,000 UNIT Acetaminophen (Tylenol Tab) 650 mg Q4H PRN PO 06/25/17 17:15 07/25/17 17:14 06/27/17 03:44 650 MG Aspirin (Ecotrin Tab) 81 mg QAM PO 06/26/17 09:00 07/26/17 08:59 06/27/17 08:50 81 MG Budesonide/ Formoterol Fumarate (Symbicort 160/ 4.5 Inh) 2 puffs BID INH 06/25/17 21:00 07/25/17 20:59 06/27/17 08:44 2 PUFFS Docusate Sodium (coLACE CAP) 100 mg BID PO 06/25/17 21:00 07/25/17 20:59 06/27/17 08:48 100 MG Escitalopram Oxalate (Lexapro Tab) 5 mg DAILY PO 06/26/17 09:00 07/26/17 08:59 06/27/17 08:49 5 MG Insulin Glargine (Lantus Solostar Pen) 10 units QPM SC 06/25/17 21:00 07/25/17 20:59 06/26/17 21:19 10 UNITS Levothyroxine Sodium (Synthroid Tab) 50 mcg DAILYBB PO 06/26/17 06:00 07/26/17 05:59 06/27/17 06:32 50 MCG Lorazepam (Ativan Tab) 0.5 mg BID PO 06/25/17 21:00 07/25/17 20:59 06/27/17 08:47 0.5 MG Magnesium Oxide (Mag-Ox Tab) 400 mg QAM PO 06/26/17 09:00 07/26/17 08:59 06/27/17 08:50 400 MG Metoprolol Tartrate (Lopressor Tab) 100 mg BID PO 06/25/17 21:00 07/25/17 20:59 06/27/17 08:49 100 MG Nitroglycerin (Nitrostat Tab) 0.4 mg UD PRN UT 06/25/17 17:15 07/25/17 17:14 Cholecalciferol (Vitamin D Tab) 1,000 inter.unit QAM PO 06/26/17 09:00 07/26/17 08:59 06/27/17 08:46 1,000 INTER.UNIT Cyanocobalamin (Vitamin B-12 Tab) 1,000 mcg QAM PO 06/26/17 09:00 07/26/17 08:59 06/27/17 08:49 1,000 MCG Diltiazem HCl (Cardizem Cd Cap) 240 mg QAM PO 06/26/17 09:00 07/26/17 08:59 06/27/17 08:50 240 MG Ferrous Sulfate (Feosol Tab) 325 mg QAM PO 06/26/17 09:00 07/26/17 08:59 06/27/17 08:49 325 MG Pantoprazole Sodium (Protonix Tab) 40 mg QAM PO 06/26/17 09:00 07/26/17 08:59 06/27/17 08:44 40 MG Fluticasone Propionate (Flonase Nasal Dorris) 2 sprays DAILY NA 06/26/17 09:00 07/26/17 08:59 06/27/17 08:44 2 SPRAYS Albuterol/ Ipratropium (Duoneb) 3 ml QIDR PRN INH 06/25/17 17:15 07/25/17 17:14 06/27/17 03:14 3 ML Insulin Aspart (novoLOG ASPART) SLIDING SCALE If C... ACHS SC 06/25/17 21:00 07/25/17 20:59 06/26/17 12:42 1 UNITS Morphine Sulfate (MoRPHine SULFATE INJ) 2 mg Q4H PRN IV 06/25/17 17:30 07/09/17 17:29 Glucose (Glucose 40% Gel) 15-30 GRAMS 15 GRAMS... UD PRN PO 06/25/17 19:00 07/25/17 18:59 Glucose (Glucose Chew Tab) 4-8 Tablets 4 Tabl... UD PRN PO 06/25/17 19:00 07/25/17 18:59 Dextrose (Dextrose 50% 50ML Syringe) 25-50ML OF 50% DW IV FOR... UD PRN IV 06/25/17 19:00 07/25/17 18:59 Glucagon (Glucagon Inj) 1 mg UD PRN SQ 06/25/17 19:00 07/25/17 18:59 Miscellaneous (Iv Fluids Completed) 1 ea PRN PRN N/A 06/25/17 21:00 06/25/18 20:59 Furosemide (Lasix Tab) 40 mg QAM PO 06/27/17 09:00 07/27/17 08:59 06/27/17 09:14 40 MG Objective Vital Signs Date Time Temp Pulse Resp B/P (MAP) Pulse Ox O2 Delivery O2 Flow Rate FiO2 06/27/17 10:18 36.9 60 18 96 4.0 06/27/17 08:10 36.9 60 18 138/58 (84) 96 06/27/17 08:00 Room Air 06/27/17 04:47 36.8 61 17 147/61 (89) 92 Room Air 06/27/17 04:00 92 Room Air 06/27/17 03:14 60 20 97 Room Air 06/27/17 00:00 93 Room Air 06/27/17 00:00 37.2 60 28 145/68 (93) 93 Room Air 06/26/17 20:04 37.2 61 16 147/74 (98) 95 Room Air 06/26/17 20:00 Room Air 06/26/17 16:00 93 Room Air 06/26/17 15:52 36.3 59 16 141/65 (90) 93 Room Air 06/26/17 15:18 36.5 69 18 148/83 (104) 98 Room Air Physical Exam General Appearance: WD/WN, no apparent distress Eyes: normal inspection, EOMI, sclerae normal ENT: normal ENT inspection, hearing grossly normal, pharynx normal Neck: supple, no adenopathy, no JVD, trachea midline Respiratory/Chest: chest non-tender, no respiratory distress, no accessory muscle use, + decreased breath sounds, + crackles Cardiovascular: regular rate, rhythm, no gallop, no JVD, no murmur Abdomen: normal bowel sounds, non tender, soft, no organomegaly Extremities: normal range of motion, non-tender, normal inspection, no calf tenderness, normal capillary refill, pelvis stable, + pedal edema Neurologic/Psychiatric: 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, alert, normal mood/affect, oriented x 3, + motor weakness (generalized) Skin: normal color, warm/dry, no rash Laboratory Results Last 24 Hours Test 06/26/17 16:20 06/26/17 20:02 06/27/17 06:00 06/27/17 06:32 Bedside Glucose 130 mg/dl 109 mg/dl 79 mg/dl White Blood Count 6.37 K/uL Red Blood Count 3.88 M/uL Hemoglobin 11.2 g/dL Hematocrit 33.7 % Mean Corpuscular Volume 86.9 fL Mean Corpuscular Hemoglobin 28.9 pg Mean Corpuscular Hemoglobin Concent 33.2 g/dl RDW Standard Deviation 43.0 fL RDW Coefficient of Variation 13.7 % Platelet Count 231 K/uL Mean Platelet Volume 8.7 fL Sodium Level 133 mmol/L Potassium Level 4.4 mmol/L Chloride Level 100 mmol/L Carbon Dioxide Level 25 mmol/L Anion Gap 8.0 mmol/L Blood Urea Nitrogen 55 mg/dl Creatinine 2.19 mg/dl Est Creatinine Clear Calc Drug Dose 17.0 ml/min Estimated GFR () 22.6 Estimated GFR (Non- 19.5 BUN/Creatinine Ratio 25.0 Random Glucose 75 mg/dl Calcium Level 8.2 mg/dl Test 06/27/17 11:23 Bedside Glucose 186 mg/dl Assessment and Plan Ms. 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 echo on 06/26 showed EF of 40-45%, severe MR, diastolic dysfunction - 2900 cc for the admission on lasix 40mg IV daily will give Lasix 40mg PO today, follow weights continue Lopressor - CKD stage III/IV: nephrology following Cr down to 2.19 from 2.33, continue Lasix likely needs a daily diuretic given her heart failure follows with nephrology in [place] K and Na are normal, will continue to follow has discussed HD with her director instructional material as outpatient, she is open to it, no AV fistula placed yet Hyponatremia - improved to 133, continue to monitor Hyperkalemia - resolved, down to 4.4, likely responded to the Lasix use and was up due to CKD and no Lasix DMII - sugars controlled on Lantus 10 units and Novolog - continue to monitor for hypoglycemia, diabetic diet COPD - continue Symbicort - prn duonebs for sob Dyspnea - likely multifactorial with COPD, combined heart failure and severe pulmonary hypertension - no chronic hypoxia at this time but would likely develop this as diseases progress Anxiety - continue Lexapro Urinary Retention - h/o of this, was followed by urology and used to perform straight caths - will follow post void residuals, may require a urology consult DNR Heparin subq, scds transfer to medical floor, consult PT/OT
[2017-06-27] MEDS ORDERED: FUROSEMIDE 40 MG TAB PO ONE (20:15)
[2017-06-27] MEDS: INSULIN GLARGINE SOLOSTAR 100 UNITS/ML 3 ML PEN SC SCH (20:53)
[2017-06-28] VITALS (7 sets, daily range): BP systolic 137–161; BP diastolic 61–79; PULSE 71–94; TEMP 36.7–37.4; O2SAT 92–97
[2017-06-28] MEDS: ALBUT/IPRATROP 3MG/0.5MG NEB 3 ML VIAL INH PRN ×2 (02:26→19:43)
[2017-06-28] MEDS: LEVOTHYROXINE 50 MCG TAB PO SCH (05:13)
[2017-06-28 07:04] LABS: HEMATOCRIT 35.4 % (37-47); HEMOGLOBIN 11.7 g/dL (12.0-16.0); MEAN CELL VOLUME 88.1 fL (80-100); MEAN CORPUSCULAR HEMOGLOBIN 29.1 pg (25-34); MEAN CORPUSCULAR HGB CONC 33.1 g/dl (32-36); MEAN PLATELET VOLUME 8.5 fL (7.4-10.4); PLATELET COUNT 234 K/uL (130-400); RED CELL DISTRIBUTION WIDTH CV 13.7 % (11.5-14.5); RED CELL DISTRIBUTION WIDTH SD 44.3 fL (36.4-46.3); WHITE BLOOD COUNT 11.76 K/uL (4.8-10.8)
[2017-06-28 07:40] LABS: CALCIUM 8.6 mg/dl (8.5-10.1); CREATININE 2.38 mg/dl (0.60-1.20); POTASSIUM 4.6 mmol/L (3.5-5.1)
[2017-06-28] MEDS: ASPIRIN 81 MG ECTAB PO SCH (08:17)
[2017-06-28] MEDS: MAGNESIUM OXIDE 400 MG TAB PO SCH (08:18)
[2017-06-28] MEDS: FERROUS SULFATE 325 MG TAB PO SCH (08:18)
[2017-06-28] MEDS: DILTIAZEM HCL 240 MG CAPCR PO SCH (08:18)
[2017-06-28] MEDS: CHOLECALCIFEROL 1000 INTER.UNIT TAB PO SCH (08:18)
[2017-06-28] MEDS: METOPROLOL TARTRATE 100 MG TAB PO SCH ×2 (08:18→21:28)
[2017-06-28] MEDS: CYANOCOBALAMIN 500 MCG TAB (VIT B-12) PO SCH (08:18)
[2017-06-28] MEDS: PANTOprazole SOD 40 MG TAB PO SCH (08:19)
[2017-06-28] MEDS: ESCITALOPRAM OXALATE 10 MG TAB PO SCH (08:19)
[2017-06-28] MEDS: DOCUSATE SODIUM 100 MG CAP PO SCH ×2 (08:19→21:29)
[2017-06-28] MEDS: FUROSEMIDE 40 MG TAB PO SCH ×2 (08:20→16:04)
[2017-06-28] MEDS: FLUTICASONE PROPIONATE NA SPR 16 GM BTL SCH (08:20)
[2017-06-28] MEDS: BUDESONIDE/FORMOTEROL FUMARATE 160/4.5 60 PUFFS/INHALER INH SCH ×2 (08:20→21:26)
[2017-06-28] MEDS: HEPARIN SOD 5000 UNIT/0.5 ML CARP SQ SCH (08:21)
[2017-06-28] MEDS: LORAZEPAM 0.5 MG TAB PO SCH ×2 (08:28→21:32)
[2017-06-28] MEDS: INSULIN ASPART 100 UNITS/ML 3 ML PEN SC SCH ×4 (09:30→21:30)
[2017-06-28 09:35] LABS: PTT PATIENT 26.8 SECONDS (21.0-31.0)
--- NOTE | 2017-06-28 10:21 | Nephrology Progress Note ---
Nephrology Progress Note Date of Service Jun 28, 2017. Chief Complaint Acute on chronic kidney injury Subjective Ms. Gil was seen & examined in her hospital room this morning. She reports that her breathing and LE swelling have improved. She is voiding now without difficulty. Review of Systems Constitutional: No fever Cardiovascular: No chest pain Respiratory: No dyspnea at rest Abdomen: No pain, No nausea, No vomiting Extremities: + leg edema A complete review of systems was performed. Pertinent positives are noted above. All other systems are negative. Vital Signs Last 8 Hrs Date Time Temp Pulse Resp B/P (MAP) Pulse Ox O2 Delivery O2 Flow Rate FiO2 06/28/17 09:27 36.7 94 18 95 4.0 06/28/17 08:16 36.7 94 18 144/79 (100) 95 Room Air 06/28/17 08:00 Room Air 06/28/17 02:28 74 18 96 Room Air Last Recorded Weight Weight (Kilograms): 71.300 Physical Exam General Appearance: no apparent distress Head: normocephalic, atraumatic Eyes: PERRL, EOMI Neck: no adenopathy Respiratory/Chest: lungs clear, no respiratory distress Cardiovascular: regular rate, rhythm Abdomen/GI: normal bowel sounds, non tender, soft Extremities/Musculoskelatal: + swelling (1+ pretibial edema) Neurologic/Psych: alert, oriented x 3 Family History Omitted secondary to age Social History Smokeless Tobacco Use: No Alcohol Use: none Drug Use: none Marital Status: Housing Status: assisted living ([facility]) Occupation: retired Laboratory Results Past 24 Hours 06/28/17 06:44 06/28/17 06:44 Test 06/27/17 11:23 06/27/17 16:35 06/27/17 20:21 06/28/17 06:44 Bedside Glucose 186 mg/dl (70-90) 140 mg/dl (70-90) 224 mg/dl (70-90) Red Blood Count 4.02 M/uL (4.2-5.4) Mean Corpuscular Volume 88.1 fL (80-100) Mean Corpuscular Hemoglobin 29.1 pg (25-34) Mean Corpuscular Hemoglobin Concent 33.1 g/dl (32-36) RDW Standard Deviation 44.3 fL (36.4-46.3) RDW Coefficient of Variation 13.7 % (11.5-14.5) Mean Platelet Volume 8.5 fL (7.4-10.4) Anion Gap 8.0 mmol/L (3-11) Est Creatinine Clear Calc Drug Dose 15.5 ml/min Estimated GFR () 20.4 Estimated GFR (Non- 17.6 BUN/Creatinine Ratio 19.7 (10-20) Calcium Level 8.6 mg/dl (8.5-10.1) Troponin I 1.230 ng/ml (0-0.045) Test 06/28/17 07:51 06/28/17 09:16 Bedside Glucose 154 mg/dl (70-90) Activated Partial Thromboplast Time 26.8 SECONDS (21.0-31.0) Partial Thromboplastin Ratio 1.0 Allergies Coded Allergies: Fenofibrate (Verified Allergy, Intermediate, rash, 05/07/17) Amoxicillin (Verified Allergy, Unknown, UNKNOWN, 05/07/17) Calcium Carbonate (Verified Allergy, Unknown, ., 06/27/17) Ciprofloxacin (Verified Allergy, Unknown, ., 06/27/17) Diphenhydramine (Verified Allergy, Unknown, ., 06/27/17) Fexofenadine (Verified Allergy, Unknown, UNKNOWN, 05/07/17) Irbesartan (Verified Allergy, Unknown, UNKNOWN, 05/07/17) Lidocaine (Verified Allergy, Unknown, ., 06/27/17) Niacin (Verified Allergy, Unknown, RASH, 05/07/17) Nystatin (Verified Allergy, Unknown, ., 06/27/17) Penicillins (Verified Allergy, Unknown, UNKNOWN, 05/07/17) Sulfa Antibiotics (Verified Allergy, Unknown, UNKNOWN, 05/07/17) Flumazenil (Verified Adverse Reaction, Intermediate, DELIRIUM, 06/27/17) anxious, increased heart rate, increased blood pressure Tomato (Verified Adverse Reaction, Unknown, GI SYMPTOMS, 06/27/17) Medications Current Inpatient Medications Medications (Trade) Dose Ordered Sig/Leslee Route Start Time Stop Time Status Last Admin Dose Admin Acetaminophen (Tylenol Tab) 650 mg Q4H PRN PO 06/25/17 17:15 07/25/17 17:14 06/27/17 03:44 650 MG Aspirin (Ecotrin Tab) 81 mg QAM PO 06/26/17 09:00 07/26/17 08:59 06/28/17 08:17 81 MG Budesonide/ Formoterol Fumarate (Symbicort 160/ 4.5 Inh) 2 puffs BID INH 06/25/17 21:00 07/25/17 20:59 06/28/17 08:20 2 PUFFS Docusate Sodium (coLACE CAP) 100 mg BID PO 06/25/17 21:00 07/25/17 20:59 06/28/17 08:19 100 MG Escitalopram Oxalate (Lexapro Tab) 5 mg DAILY PO 06/26/17 09:00 07/26/17 08:59 06/28/17 08:19 5 MG Insulin Glargine (Lantus Solostar Pen) 10 units QPM SC 06/25/17 21:00 07/25/17 20:59 06/27/17 20:53 10 UNITS Levothyroxine Sodium (Synthroid Tab) 50 mcg DAILYBB PO 06/26/17 06:00 07/26/17 05:59 06/28/17 05:13 50 MCG Lorazepam (Ativan Tab) 0.5 mg BID PO 06/25/17 21:00 07/25/17 20:59 06/28/17 08:28 0.5 MG Magnesium Oxide (Mag-Ox Tab) 400 mg QAM PO 06/26/17 09:00 07/26/17 08:59 06/28/17 08:18 400 MG Metoprolol Tartrate (Lopressor Tab) 100 mg BID PO 06/25/17 21:00 07/25/17 20:59 06/28/17 08:18 100 MG Nitroglycerin (Nitrostat Tab) 0.4 mg UD PRN UT 06/25/17 17:15 07/25/17 17:14 06/28/17 07:29 0.4 MG Cholecalciferol (Vitamin D Tab) 1,000 inter.unit QAM PO 06/26/17 09:00 07/26/17 08:59 06/28/17 08:18 1,000 INTER.UNIT Cyanocobalamin (Vitamin B-12 Tab) 1,000 mcg QAM PO 06/26/17 09:00 07/26/17 08:59 06/28/17 08:18 1,000 MCG Diltiazem HCl (Cardizem Cd Cap) 240 mg QAM PO 06/26/17 09:00 07/26/17 08:59 06/28/17 08:18 240 MG Ferrous Sulfate (Feosol Tab) 325 mg QAM PO 06/26/17 09:00 07/26/17 08:59 06/28/17 08:18 325 MG Pantoprazole Sodium (Protonix Tab) 40 mg QAM PO 06/26/17 09:00 07/26/17 08:59 06/28/17 08:19 40 MG Fluticasone Propionate (Flonase Nasal Gordon) 2 sprays DAILY NA 06/26/17 09:00 07/26/17 08:59 06/28/17 08:20 2 SPRAYS Albuterol/ Ipratropium (Duoneb) 3 ml QIDR PRN INH 06/25/17 17:15 07/25/17 17:14 06/28/17 02:26 3 ML Insulin Aspart (novoLOG ASPART) SLIDING SCALE If C... ACHS SC 06/25/17 21:00 07/25/17 20:59 06/27/17 20:53 4 UNITS Morphine Sulfate (MoRPHine SULFATE INJ) 2 mg Q4H PRN IV 06/25/17 17:30 07/09/17 17:29 Glucose (Glucose 40% Gel) 15-30 GRAMS 15 GRAMS... UD PRN PO 06/25/17 19:00 07/25/17 18:59 Glucose (Glucose Chew Tab) 4-8 Tablets 4 Tabl... UD PRN PO 06/25/17 19:00 07/25/17 18:59 Dextrose (Dextrose 50% 50ML Syringe) 25-50ML OF 50% DW IV FOR... UD PRN IV 06/25/17 19:00 07/25/17 18:59 Glucagon (Glucagon Inj) 1 mg UD PRN SQ 06/25/17 19:00 07/25/17 18:59 Miscellaneous (Iv Fluids Completed) 1 ea PRN PRN N/A 06/25/17 21:00 06/25/18 20:59 Furosemide (Lasix Tab) 40 mg BID17 PO 06/28/17 09:00 07/27/17 08:59 06/28/17 08:20 40 MG Heparin Sodium/ Dextrose 500 ml @ 21 mls/hr [id number] IV 06/28/17 10:00 07/28/17 09:59 Impression (1) Acute exacerbation of CHF (congestive heart failure) (2) Acute kidney injury (3) CKD (chronic kidney disease) (4) DM (diabetes mellitus) (5) SOB (shortness of breath) (6) Atrial fibrillation (7) Bladder outflow obstruction (8) Hypertension (9) Severe mitral regurgitation (10) Moderate to severe pulmonary hypertension Lisa is an 87-year-old female with coronary artery disease, CKD IV , hypertension, diabetes mellitus II, and atrial fibrillation/SSS with diastolic CHF. Renal US did not demonstrate hydronephrosis however a PVR >400 ml was appreciated. Straight cath was performed to drain the bladder completely. Repeat analysis has documented PVR of ~250 ml. Lisa has no urinary complaints. Urine analysis is bland and microscopy is acellular. Metabolic profile is otherwise normal. TTE documented normal LV systolic function, moderate to severe mitral regurgitation and moderate TR with severe pulmonary hypertension (PASP 60-65 mmHg). KYLEIGH is consistent with cardiorenal syndrome. Creatinine has improved slightly with diuresis. She has urinary retention but did not have hydronephrosis or any findings to suggest a significant post obstructive component to KYLEIGH. Patient [place] [facility] [place] regarding [place] obstruction until 2014. At that time, the finding was attributed largely to use of opiate pain medications. Urology follow up would be appropriate at this time. Recommendations -- Continue Furosemide 40 mg PO BID -- Document I/O's -- Continue to monitor PVR -- Urology follow up as outpatient -- Renal diet, low sodium -- Keep feet elevated -- Appreciate cardiology consult notably regarding valvular heart disease -- Repeat metabolic profile tomorrow AM
[2017-06-28 10:39] LABS: BASO % 0.2 %; BASO ABS # 0.02 K/uL (0-0.2); EOS % 1.5 %; EOS ABS # 0.18 K/uL (0-0.5); IG# 0.03 K/uL (0.00-0.02); LYMPH % 9.9 %; LYMPH ABS # 1.18 K/uL (1.2-3.4); MONO % 7.9 %; MONO ABS # 0.95 K/uL (0.11-0.59); NEUT % 80.2 %
[2017-06-28] MEDS: HEPARIN 25,000 UNIT/500ML D5W 500 ML IV SCH (10:48)
--- NOTE | 2017-06-28 11:12 | Cardiology Follow-Up ---
Subjective Date of Service: Jun 28, 2017. Pt evaluation today including: conversation w/ patient, physical exam, chart review, lab review, review of studies, review of inpatient medication list, conversation w/ attending History of Present Illness Patient reports that this morning, she went to the restroom and when she got back into bed, she had an episode of chest discomfort described as a pressure that was 5/10 in severity. She felt short of breath and nauseous in association with the discomfort. When the pain continued, she was given sublingual nitro by the nursing staff, and she reports that her pain instantly resolved. She has been asymptomatic since that time without any recurrent chest discomfort. She does report a cough with green mucous production, which she states began yesterday. She feels that her left leg is still mildly edematous compared to her baseline. She notes chronic orthopnea. A troponin was drawn this morning, which was mildly elevated at 1.230. The patient was therefore transferred back to the telemetry unit. ECG shows atrial fibrillation with occasional ventricular paced complexes and chronic left bundle branch block. She was previously in sinus rhythm. Social History Smoking Status: Never Smoker History of Alcohol Use: No Objective Vital Signs Past 12 Hours Date Time Temp Pulse Resp B/P (MAP) Pulse Ox O2 Delivery O2 Flow Rate FiO2 06/28/17 09:27 36.7 94 18 95 4.0 06/28/17 08:16 36.7 94 18 144/79 (100) 95 Room Air 06/28/17 08:00 Room Air 06/28/17 02:28 74 18 96 Room Air 06/27/17 23:59 94 Room Air 06/27/17 23:45 36.7 60 19 136/66 (89) 93 Room Air Last Recorded Weight-Kilograms: 71.300 Physical Exam Constitutional: Alert, oriented, in no acute distress HEENT: Head is atraumatic and normocephalic. EOMs intact. Sclera anicteric. Face is symmetric. No perioral cyanosis. Mucous membranes moist. Neck: Supple, no appreciable JVD Pulmonary: Normal respiratory effort, decreased breath sounds but otherwise clear to auscultation bilaterally Cardiac: Irregularly irregular, normal S1 and S2, no gallops, no rubs, no obvious murmurs Extremities: 1+ left ankle edema. Trace pretibial edema bilaterally. No clubbing or cyanosis. Pulses intact Abdomen: Normal bowel sounds, soft, non-tender, no abdominal mass palpated Skin: Normal skin color, turgor, and pigmentation, no rash, no skin lesions Neurological: Oriented to person, place, and time Data Laboratory Results: Last 24 Hours Test 06/27/17 11:23 06/27/17 16:35 06/27/17 20:21 06/28/17 06:44 Bedside Glucose 186 mg/dl 140 mg/dl 224 mg/dl White Blood Count 11.76 K/uL Red Blood Count 4.02 M/uL Hemoglobin 11.7 g/dL Hematocrit 35.4 % Mean Corpuscular Volume 88.1 fL Mean Corpuscular Hemoglobin 29.1 pg Mean Corpuscular Hemoglobin Concent 33.1 g/dl RDW Standard Deviation 44.3 fL RDW Coefficient of Variation 13.7 % Platelet Count 234 K/uL Mean Platelet Volume 8.5 fL Sodium Level 133 mmol/L Potassium Level 4.6 mmol/L Chloride Level 99 mmol/L Carbon Dioxide Level 26 mmol/L Anion Gap 8.0 mmol/L Blood Urea Nitrogen 47 mg/dl Creatinine 2.38 mg/dl Est Creatinine Clear Calc Drug Dose 15.5 ml/min Estimated GFR () 20.4 Estimated GFR (Non- 17.6 BUN/Creatinine Ratio 19.7 Random Glucose 139 mg/dl Calcium Level 8.6 mg/dl Troponin I 1.230 ng/ml Test 06/28/17 07:51 06/28/17 09:16 Bedside Glucose 154 mg/dl Prothrombin Time 10.5 SECONDS Prothromb Time International Ratio 1.0 Activated Partial Thromboplast Time 26.8 SECONDS Partial Thromboplastin Ratio 1.0 Telemetry reviewed: Atrial fibrillation with rates in the 90s and low 100s Echocardiogram: 1. Borderline dilated LV. Moderate concentric LVH. 2. LVEF 40-45%. Severe hypokinesis of inferior, septal base to mid wall. Otherwise mild global hypokinesis. 3. Normal RV size mild RV dysfunction 4. Moderate to severe mitral regurgitation 5. Moderate tricuspid regurgitation 5. Severe pulmonary hypertension. Estimated PASP 60-65 mmHg 6. Grade 2 diastolic dysfunction 7. Compared with prior study on 04/04/2016: Mitral regurgitation has progressed , now moderate to severe. Severe pulmonary hypertension is new. Assessment and Plan ASSESSMENT/PLAN: 1. Chest discomfort: She has known coronary disease and her symptoms are improved with sublingual nitroglycerin. She also had a mild rise in her troponin this morning to 1.230. Recommend continuing to trend her enzymes and start the patient on a heparin drip. Given her chronic renal insufficiency, will not proceed with catheterization unless absolutely necessary. 2. Atrial fibrillation: She has a history of paroxysmal atrial fibrillation. She was in sinus rhythm on arrival, but has now developed atrial fibrillation with a relatively well controlled ventricular response rate. Continue rate control with metoprolol tartrate 100 mg BID and Diltiazem 240 mg daily. If further rate control is necessary, the Diltiazem can be increased to 300 mg daily. She does have a pacemaker, so there is no concern for bradycardia. The patient will be started on a heparin drip given her chest pain and enzyme elevation as noted above. Chronic anticoagulation therapy is indicated for thromboembolic prophylaxis, but she has not been anticoagulated as per her primary low vision therapist, Dr. Guido. Will defer the decision for anticoagulation to him. 3. Pacemaker: She has a dual chamber pacemaker, which appears to be functioning appropriately. Her device is followed in the outpatient setting by Dr. Guido. 4. Mitral regurgitation: She has moderate to severe MR. She does not appear to be a good surgical candidate. Recommend continued medical management with diuresis. 5. Pulmonary hypertension: Severe pulmonary hypertension was noted by echocardiogram during this admission. This may improve with diuresis. 6. Systolic and diastolic CHF: She is down about 4 L so far, and her creatinine has remained stable. Her breathing and edema appears to have improved. Recommend continuing Lasix 40 mg PO BID. Continue to monitor PRP closely and document I's&O's. Low sodium diet, <2,000 mg daily, recommended. 7. Disposition: Will continue to follow along during the patient's hospitalization.
[2017-06-28 17:30] LABS: PTT PATIENT 58.1 SECONDS (21.0-31.0)
[2017-06-28] MEDS ORDERED: COUGH DROP (SUGAR FREE) LOZ 24 LOZ/1 BOX LOZ PRN (21:30)
[2017-06-28] MEDS: INSULIN GLARGINE SOLOSTAR 100 UNITS/ML 3 ML PEN SC SCH (21:30)
--- NOTE | 2017-06-28 22:38 | Progress Note ---
Subjective Date of Service: Jun 28, 2017. Subjective Pt evaluation today including: conversation w/ patient, physical exam, lab review, conversation w/ implementation consultant, review of inpatient medication list Pain: chest pain this AM PO Intake: adequate Voiding: no voiding problems patient with some chest pressure and difficulty breathing this AM checked troponin, was elevated at 1.0, was negative two days prior EKG could not help due to chronic LBBB transferred to [facility], started heparin drip reviewed other labs, Cr up slightly to 2.38 however, diuresing very well, -4300cc for the admission discussed with cardiology, agree with heparin drip, conservative treatment Problem List Medical Problems: (1) Acute bronchitis Status: Acute (2) Altered mental status Status: Acute (3) Anemia Status: Acute (4) Atypical chest pain Status: Acute (5) CKD (chronic kidney disease) Status: Chronic (6) Degenerative disc disease, cervical Status: Acute (7) E86.0 Status: Acute (8) Edema Status: Acute (9) EKG, abnormal Status: Acute (10) Hyperglycemia Status: Acute (11) Hyperglycemia due to type 2 diabetes mellitus Status: Acute (12) Hyponatremia Status: Acute (13) Incarcerated right inguinal hernia Status: Acute (14) Left leg cellulitis Status: Acute (15) Leukocytosis Status: Acute (16) Pneumonia Status: Acute (17) Pneumonitis Status: Acute (18) Pneumonitis Status: Acute (19) Respiratory distress Status: Acute (20) Small bowel obstruction Status: Acute (21) UTI (urinary tract infection) Status: Acute (22) Vomiting and diarrhea Status: Acute (23) Weakness Status: Acute Review of Systems Constitutional: + weakness, + fatigue Respiratory: + shortness of breath Cardiac: + chest pain All Other Systems: Reviewed and Negative Medications Current Inpatient Medications Medications (Trade) Dose Ordered Sig/Leslee Route Start Time Stop Time Status Last Admin Dose Admin Acetaminophen (Tylenol Tab) 650 mg Q4H PRN PO 06/25/17 17:15 07/25/17 17:14 06/27/17 03:44 650 MG Aspirin (Ecotrin Tab) 81 mg QAM PO 06/26/17 09:00 07/26/17 08:59 06/28/17 08:17 81 MG Budesonide/ Formoterol Fumarate (Symbicort 160/ 4.5 Inh) 2 puffs BID INH 06/25/17 21:00 07/25/17 20:59 06/28/17 21:26 2 PUFFS Docusate Sodium (coLACE CAP) 100 mg BID PO 06/25/17 21:00 07/25/17 20:59 06/28/17 21:29 100 MG Escitalopram Oxalate (Lexapro Tab) 5 mg DAILY PO 06/26/17 09:00 07/26/17 08:59 06/28/17 08:19 5 MG Insulin Glargine (Lantus Solostar Pen) 10 units QPM SC 06/25/17 21:00 07/25/17 20:59 06/28/17 21:30 10 UNITS Levothyroxine Sodium (Synthroid Tab) 50 mcg DAILYBB PO 06/26/17 06:00 07/26/17 05:59 06/28/17 05:13 50 MCG Lorazepam (Ativan Tab) 0.5 mg BID PO 06/25/17 21:00 07/25/17 20:59 06/28/17 21:32 0.5 MG Magnesium Oxide (Mag-Ox Tab) 400 mg QAM PO 06/26/17 09:00 07/26/17 08:59 06/28/17 08:18 400 MG Metoprolol Tartrate (Lopressor Tab) 100 mg BID PO 06/25/17 21:00 07/25/17 20:59 06/28/17 21:28 100 MG Nitroglycerin (Nitrostat Tab) 0.4 mg UD PRN UT 06/25/17 17:15 07/25/17 17:14 06/28/17 07:29 0.4 MG Cholecalciferol (Vitamin D Tab) 1,000 inter.unit QAM PO 06/26/17 09:00 07/26/17 08:59 06/28/17 08:18 1,000 INTER.UNIT Cyanocobalamin (Vitamin B-12 Tab) 1,000 mcg QAM PO 06/26/17 09:00 07/26/17 08:59 06/28/17 08:18 1,000 MCG Diltiazem HCl (Cardizem Cd Cap) 240 mg QAM PO 06/26/17 09:00 07/26/17 08:59 06/28/17 08:18 240 MG Ferrous Sulfate (Feosol Tab) 325 mg QAM PO 06/26/17 09:00 07/26/17 08:59 06/28/17 08:18 325 MG Pantoprazole Sodium (Protonix Tab) 40 mg QAM PO 06/26/17 09:00 07/26/17 08:59 06/28/17 08:19 40 MG Fluticasone Propionate (Flonase Nasal [place]) 2 sprays DAILY NA 06/26/17 09:00 07/26/17 08:59 06/28/17 08:20 2 SPRAYS Albuterol/ Ipratropium (Duoneb) 3 ml QIDR PRN INH 06/25/17 17:15 07/25/17 17:14 06/28/17 19:43 3 ML Insulin Aspart (novoLOG ASPART) SLIDING SCALE If C... ACHS SC 06/25/17 21:00 07/25/17 20:59 06/28/17 21:30 7 UNITS Morphine Sulfate (MoRPHine SULFATE INJ) 2 mg Q4H PRN IV 06/25/17 17:30 07/09/17 17:29 Glucose (Glucose 40% Gel) 15-30 GRAMS 15 GRAMS... UD PRN PO 06/25/17 19:00 07/25/17 18:59 Glucose (Glucose Chew Tab) 4-8 Tablets 4 Tabl... UD PRN PO 06/25/17 19:00 07/25/17 18:59 Dextrose (Dextrose 50% 50ML Syringe) 25-50ML OF 50% DW IV FOR... UD PRN IV 06/25/17 19:00 07/25/17 18:59 Glucagon (Glucagon Inj) 1 mg UD PRN SQ 06/25/17 19:00 07/25/17 18:59 Miscellaneous (Iv Fluids Completed) 1 ea PRN PRN N/A 06/25/17 21:00 06/25/18 20:59 Furosemide (Lasix Tab) 40 mg BID17 PO 06/28/17 09:00 07/27/17 08:59 06/28/17 16:04 40 MG Heparin Sodium/ Dextrose 500 ml @ 21 mls/hr [id number] IV 06/28/17 10:00 07/28/17 09:59 06/28/17 10:48 21 MLS/HR Menthol (Nice [place]) 1 stuart PRN PRN STUART 06/28/17 21:30 07/28/17 21:29 06/28/17 21:39 1 STUART Objective Vital Signs Date Time Temp Pulse Resp B/P (MAP) Pulse Ox O2 Delivery O2 Flow Rate FiO2 06/28/17 20:00 Room Air 06/28/17 19:23 37.0 84 20 141/61 (87) 92 Room Air 06/28/17 16:00 Room Air 06/28/17 15:15 37.2 71 18 137/72 (93) 97 Room Air 06/28/17 12:00 Room Air 06/28/17 10:35 37.4 92 18 161/77 (105) 93 06/28/17 09:27 36.7 94 18 95 4.0 06/28/17 08:16 36.7 94 18 144/79 (100) 95 Room Air 06/28/17 08:00 Room Air 06/28/17 02:28 74 18 96 Room Air 06/27/17 23:59 94 Room Air 06/27/17 23:45 36.7 60 19 136/66 (89) 93 Room Air Physical Exam General Appearance: WD/WN, no apparent distress Eyes: normal inspection, EOMI, sclerae normal ENT: normal ENT inspection, hearing grossly normal, pharynx normal Neck: supple, no adenopathy, no JVD, trachea midline Respiratory/Chest: chest non-tender, lungs clear, normal breath sounds, no respiratory distress, no accessory muscle use Cardiovascular: regular rate, rhythm, no edema, no gallop, no JVD, no murmur Abdomen: normal bowel sounds, non tender, soft, no organomegaly Extremities: normal range of motion, non-tender, normal inspection, no pedal edema, no calf tenderness, pelvis stable Neurologic/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: 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 as tested, alert, normal mood/affect, oriented x 3, + motor weakness Skin: normal color, warm/dry, no rash Laboratory Results Last 24 Hours Test 06/28/17 06:44 06/28/17 07:51 06/28/17 09:16 06/28/17 11:11 White Blood Count 11.76 K/uL Red Blood Count 4.02 M/uL Hemoglobin 11.7 g/dL Hematocrit 35.4 % Mean Corpuscular Volume 88.1 fL Mean Corpuscular Hemoglobin 29.1 pg Mean Corpuscular Hemoglobin Concent 33.1 g/dl Platelet Count 234 K/uL Mean Platelet Volume 8.5 fL Neutrophils (%) (Auto) 80.2 % Lymphocytes (%) (Auto) 9.9 % Monocytes (%) (Auto) 7.9 % Eosinophils (%) (Auto) 1.5 % Basophils (%) (Auto) 0.2 % Neutrophils # (Auto) 9.60 K/uL Lymphocytes # (Auto) 1.18 K/uL Monocytes # (Auto) 0.95 K/uL Eosinophils # (Auto) 0.18 K/uL Basophils # (Auto) 0.02 K/uL RDW Standard Deviation 44.3 fL RDW Coefficient of Variation 13.7 % Immature Granulocyte % (Auto) 0.3 % Immature Granulocyte # (Auto) 0.03 K/uL Nucleated RBC Absolute Count (auto) 0.00 K/uL Nucleated Red Blood Cells % 0.0 % Sodium Level 133 mmol/L Potassium Level 4.6 mmol/L Chloride Level 99 mmol/L Carbon Dioxide Level 26 mmol/L Anion Gap 8.0 mmol/L Blood Urea Nitrogen 47 mg/dl Creatinine 2.38 mg/dl Est Creatinine Clear Calc Drug Dose 15.5 ml/min Estimated GFR () 20.4 Estimated GFR (Non- 17.6 BUN/Creatinine Ratio 19.7 Random Glucose 139 mg/dl Calcium Level 8.6 mg/dl Troponin I 1.230 ng/ml Bedside Glucose 154 mg/dl 264 mg/dl Prothrombin Time 10.5 SECONDS Prothromb Time International Ratio 1.0 Activated Partial Thromboplast Time 26.8 SECONDS Partial Thromboplastin Ratio 1.0 Test 06/28/17 12:46 06/28/17 15:50 06/28/17 16:52 06/28/17 19:32 Troponin I 0.902 ng/ml 0.705 ng/ml Bedside Glucose 136 mg/dl Activated Partial Thromboplast Time 58.1 SECONDS Partial Thromboplastin Ratio 2.2 Test 06/28/17 20:43 Bedside Glucose 292 mg/dl Assessment and Plan Ms. 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 echo on 06/26 showed EF of 40-45%, severe MR, diastolic dysfunction - 4300 cc for the admission on lasix 40mg IV daily responding well to Lasix 40mg PO BID, will give tomorrow's AM dose and decide on further dosing based on output and Cr continue Lopressor - NSTEMI: chest pain and elevated troponin, peaked at 1, trending down later today moved to tele heparin drip, aspirin cardiology following - CKD stage III/IV: nephrology following Cr up to 2.39, continue Lasix but check labs in the AM likely needs a daily diuretic given her heart failure follows with nephrology in [place] K and Na are normal, will continue to follow has discussed HD with her wrapper dipper as outpatient, she is open to it, no AV fistula placed yet Hyponatremia - improved to 133, continue to monitor Hyperkalemia - resolved DMII - sugars controlled on Lantus 10 units and Novolog - continue to monitor for hypoglycemia, diabetic diet COPD - continue Symbicort - prn duonebs for sob Dyspnea - likely multifactorial with COPD, combined heart failure and severe pulmonary hypertension - no chronic hypoxia at this time but would likely develop this as diseases progress Anxiety - continue Lexapro Urinary Retention - h/o of this, was followed by urology and used to perform straight caths - will follow post void residuals, may require a urology consult DNR Heparin subq, scds keep on tele through the weekend, will need heparin 48 hours
[2017-06-29] VITALS (7 sets, daily range): BP systolic 116–131; BP diastolic 57–72; PULSE 69–91; TEMP 36.4–37.2; O2SAT 92–95
[2017-06-29] MEDS: LEVOTHYROXINE 50 MCG TAB PO SCH (05:53)
[2017-06-29] MEDS: INSULIN ASPART 100 UNITS/ML 3 ML PEN SC SCH ×4 (07:00→20:49)
[2017-06-29 07:05] LABS: HEMATOCRIT 34.6 % (37-47); HEMOGLOBIN 11.7 g/dL (12.0-16.0); MEAN CELL VOLUME 87.4 fL (80-100); MEAN CORPUSCULAR HEMOGLOBIN 29.5 pg (25-34); MEAN CORPUSCULAR HGB CONC 33.8 g/dl (32-36); PLATELET COUNT 258 K/uL (130-400); RED CELL DISTRIBUTION WIDTH SD 44.5 fL (36.4-46.3); WHITE BLOOD COUNT 11.42 K/uL (4.8-10.8)
[2017-06-29 07:32] LABS: CALCIUM 8.6 mg/dl (8.5-10.1); CREATININE 2.24 mg/dl (0.60-1.20); POTASSIUM 4.4 mmol/L (3.5-5.1)
[2017-06-29 08:11] LABS: PTT PATIENT 75.5 SECONDS (21.0-31.0)
[2017-06-29] MEDS: ASPIRIN 81 MG ECTAB PO SCH (08:47)
[2017-06-29] MEDS: PANTOprazole SOD 40 MG TAB PO SCH (08:47)
[2017-06-29] MEDS: FERROUS SULFATE 325 MG TAB PO SCH (08:47)
[2017-06-29] MEDS: CYANOCOBALAMIN 500 MCG TAB (VIT B-12) PO SCH (08:47)
[2017-06-29] MEDS: CHOLECALCIFEROL 1000 INTER.UNIT TAB PO SCH (08:47)
[2017-06-29] MEDS: METOPROLOL TARTRATE 100 MG TAB PO SCH ×2 (08:48→20:40)
[2017-06-29] MEDS: DOCUSATE SODIUM 100 MG CAP PO SCH ×2 (08:48→20:40)
[2017-06-29] MEDS: ESCITALOPRAM OXALATE 10 MG TAB PO SCH (08:48)
[2017-06-29] MEDS: DILTIAZEM HCL 240 MG CAPCR PO SCH (08:49)
[2017-06-29] MEDS: BUDESONIDE/FORMOTEROL FUMARATE 160/4.5 60 PUFFS/INHALER INH SCH ×2 (08:49→20:41)
[2017-06-29] MEDS ORDERED: FUROSEMIDE 40 MG TAB PO SCH (09:00)
[2017-06-29] MEDS: LORAZEPAM 0.5 MG TAB PO SCH ×2 (09:01→20:37)
[2017-06-29] MEDS: MAGNESIUM OXIDE 400 MG TAB PO SCH (09:02)
[2017-06-29] MEDS: HEPARIN 25,000 UNIT/500ML D5W 500 ML IV SCH ×2 (09:23→10:16)
--- NOTE | 2017-06-29 10:08 | Nephrology Progress Note ---
Nephrology Progress Note Date of Service Jun 29, 2017. Chief Complaint Acute on chronic kidney injury Subjective Ms. Gil was seen & examined in the PCU this morning. She developed atrial fibrillation requiring transfer to telemetry, anticoagulation and rate control. She currently denies angina or dyspnea. She reports that her breathing and LE edema are improved. She is voiding easily on her own. Review of Systems Constitutional: No fever Cardiovascular: No chest pain Respiratory: No dyspnea at rest Abdomen: No pain, No nausea, No vomiting A complete review of systems was performed. Pertinent positives are noted above. All other systems are negative. Vital Signs Last 8 Hrs Date Time Temp Pulse Resp B/P (MAP) Pulse Ox O2 Delivery O2 Flow Rate FiO2 06/29/17 07:15 36.7 81 20 116/72 (87) 95 Room Air 06/29/17 04:00 Room Air 06/29/17 03:47 37.2 69 20 125/65 (85) 92 Room Air Last Recorded Weight Weight (Kilograms): 70.300 Physical Exam General Appearance: no apparent distress Head: normocephalic, atraumatic Eyes: PERRL Neck: no adenopathy Respiratory/Chest: lungs clear, no respiratory distress Cardiovascular: + irregularly irregular Abdomen/GI: normal bowel sounds, non tender, soft Extremities/Musculoskelatal: + pertinent finding (trace pretibial edema) Neurologic/Psych: alert, oriented x 3 Family History Omitted secondary to age Social History Smokeless Tobacco Use: No Alcohol Use: none Drug Use: none Marital Status: Housing Status: assisted living ([facility]) Occupation: retired Laboratory Results Past 24 Hours 06/29/17 06:16 06/29/17 06:16 Test 06/28/17 11:11 06/28/17 12:46 06/28/17 15:50 06/28/17 16:52 Bedside Glucose 264 mg/dl (70-90) 136 mg/dl (70-90) Troponin I 0.902 ng/ml (0-0.045) Activated Partial Thromboplast Time 58.1 SECONDS (21.0-31.0) Partial Thromboplastin Ratio 2.2 Test 06/28/17 19:32 06/28/17 20:43 06/29/17 06:16 06/29/17 06:29 Troponin I 0.705 ng/ml (0-0.045) Bedside Glucose 292 mg/dl (70-90) 121 mg/dl (70-90) Red Blood Count 3.96 M/uL (4.2-5.4) Mean Corpuscular Volume 87.4 fL (80-100) Mean Corpuscular Hemoglobin 29.5 pg (25-34) Mean Corpuscular Hemoglobin Concent 33.8 g/dl (32-36) RDW Standard Deviation 44.5 fL (36.4-46.3) RDW Coefficient of Variation 14.0 % (11.5-14.5) Mean Platelet Volume 9.0 fL (7.4-10.4) Activated Partial Thromboplast Time 75.5 SECONDS (21.0-31.0) Partial Thromboplastin Ratio 2.9 Anion Gap 8.0 mmol/L (3-11) Est Creatinine Clear Calc Drug Dose 16.3 ml/min Estimated GFR () 22.0 Estimated GFR (Non- 19.0 BUN/Creatinine Ratio 21.5 (10-20) Calcium Level 8.6 mg/dl (8.5-10.1) Allergies Coded Allergies: Fenofibrate (Verified Allergy, Intermediate, rash, 05/07/17) Amoxicillin (Verified Allergy, Unknown, UNKNOWN, 05/07/17) Calcium Carbonate (Verified Allergy, Unknown, ., 06/27/17) Ciprofloxacin (Verified Allergy, Unknown, ., 06/27/17) Diphenhydramine (Verified Allergy, Unknown, ., 06/27/17) Fexofenadine (Verified Allergy, Unknown, UNKNOWN, 05/07/17) Irbesartan (Verified Allergy, Unknown, UNKNOWN, 05/07/17) Lidocaine (Verified Allergy, Unknown, ., 06/27/17) Niacin (Verified Allergy, Unknown, RASH, 05/07/17) Nystatin (Verified Allergy, Unknown, ., 06/27/17) Penicillins (Verified Allergy, Unknown, UNKNOWN, 05/07/17) Sulfa Antibiotics (Verified Allergy, Unknown, UNKNOWN, 05/07/17) Flumazenil (Verified Adverse Reaction, Intermediate, DELIRIUM, 06/27/17) anxious, increased heart rate, increased blood pressure Tomato (Verified Adverse Reaction, Unknown, GI SYMPTOMS, 06/27/17) Medications Current Inpatient Medications Medications (Trade) Dose Ordered Sig/Leslee Route Start Time Stop Time Status Last Admin Dose Admin Acetaminophen (Tylenol Tab) 650 mg Q4H PRN PO 06/25/17 17:15 07/25/17 17:14 06/27/17 03:44 650 MG Aspirin (Ecotrin Tab) 81 mg QAM PO 06/26/17 09:00 07/26/17 08:59 06/29/17 08:47 81 MG Budesonide/ Formoterol Fumarate (Symbicort 160/ 4.5 Inh) 2 puffs BID INH 06/25/17 21:00 07/25/17 20:59 06/29/17 08:49 2 PUFFS Docusate Sodium (coLACE CAP) 100 mg BID PO 06/25/17 21:00 07/25/17 20:59 06/29/17 08:48 100 MG Escitalopram Oxalate (Lexapro Tab) 5 mg DAILY PO 06/26/17 09:00 07/26/17 08:59 06/29/17 08:48 5 MG Insulin Glargine (Lantus Solostar Pen) 10 units QPM SC 06/25/17 21:00 07/25/17 20:59 06/28/17 21:30 10 UNITS Levothyroxine Sodium (Synthroid Tab) 50 mcg DAILYBB PO 06/26/17 06:00 07/26/17 05:59 06/29/17 05:53 50 MCG Lorazepam (Ativan Tab) 0.5 mg BID PO 06/25/17 21:00 07/25/17 20:59 06/29/17 09:01 0.5 MG Magnesium Oxide (Mag-Ox Tab) 400 mg QAM PO 06/26/17 09:00 07/26/17 08:59 06/29/17 09:02 400 MG Metoprolol Tartrate (Lopressor Tab) 100 mg BID PO 06/25/17 21:00 07/25/17 20:59 06/29/17 08:48 100 MG Nitroglycerin (Nitrostat Tab) 0.4 mg UD PRN UT 06/25/17 17:15 07/25/17 17:14 06/28/17 07:29 0.4 MG Cholecalciferol (Vitamin D Tab) 1,000 inter.unit QAM PO 06/26/17 09:00 07/26/17 08:59 06/29/17 08:47 1,000 INTER.UNIT Cyanocobalamin (Vitamin B-12 Tab) 1,000 mcg QAM PO 06/26/17 09:00 07/26/17 08:59 06/29/17 08:47 1,000 MCG Diltiazem HCl (Cardizem Cd Cap) 240 mg QAM PO 06/26/17 09:00 07/26/17 08:59 06/29/17 08:49 240 MG Ferrous Sulfate (Feosol Tab) 325 mg QAM PO 06/26/17 09:00 07/26/17 08:59 06/29/17 08:47 325 MG Pantoprazole Sodium (Protonix Tab) 40 mg QAM PO 06/26/17 09:00 07/26/17 08:59 06/29/17 08:47 40 MG Fluticasone Propionate (Flonase Nasal [place]) 2 sprays DAILY NA 06/26/17 09:00 07/26/17 08:59 06/28/17 08:20 2 SPRAYS Albuterol/ Ipratropium (Duoneb) 3 ml QIDR PRN INH 06/25/17 17:15 07/25/17 17:14 06/28/17 19:43 3 ML Insulin Aspart (novoLOG ASPART) SLIDING SCALE If C... ACHS SC 06/25/17 21:00 07/25/17 20:59 06/28/17 21:30 7 UNITS Morphine Sulfate (MoRPHine SULFATE INJ) 2 mg Q4H PRN IV 06/25/17 17:30 07/09/17 17:29 Glucose (Glucose 40% Gel) 15-30 GRAMS 15 GRAMS... UD PRN PO 06/25/17 19:00 07/25/17 18:59 Glucose (Glucose Chew Tab) 4-8 Tablets 4 Tabl... UD PRN PO 06/25/17 19:00 07/25/17 18:59 Dextrose (Dextrose 50% 50ML Syringe) 25-50ML OF 50% DW IV FOR... UD PRN IV 06/25/17 19:00 07/25/17 18:59 Glucagon (Glucagon Inj) 1 mg UD PRN SQ 06/25/17 19:00 07/25/17 18:59 Miscellaneous (Iv Fluids Completed) 1 ea PRN PRN N/A 06/25/17 21:00 06/25/18 20:59 Heparin Sodium/ Dextrose 500 ml @ 20 mls/hr Q24H IV 06/28/17 10:00 07/28/17 09:59 06/29/17 09:23 20 MLS/HR Menthol (Nice [place]) 1 ruby PRN PRN RUBY 06/28/17 21:30 07/28/17 21:29 06/28/17 21:39 1 RUBY Furosemide (Lasix Tab) 40 mg DAILY PO 06/29/17 09:00 07/27/17 08:59 06/29/17 08:47 40 MG Impression (1) Acute exacerbation of CHF (congestive heart failure) (2) Acute kidney injury (3) CKD (chronic kidney disease) (4) DM (diabetes mellitus) (5) Atrial fibrillation (6) Bladder outflow obstruction (7) Hypertension (8) Severe mitral regurgitation (9) Moderate to severe pulmonary hypertension Ms. Gil has CKD stage IV (advanced impairment). Baseline creatinine has been ~ 2.0. Renal impairment is on the basis of diabetic nephropathy and impaired perfusion due to valvular heart disease. Her primary Revenue Director has been Dr. Edmund Urias in [place], [place]. Urine sediment has been benign. Urinary protein has been low grade. Renal US this admission was negative for obstruction but PVR was > 400 cc. This improved following urinary straight catheterization PMH is ASCVD, CKD, HTN, AODM and atrial fibrillation/SSS with diastolic CHF. TTE this hospitalization revealed moderate to severe MR and moderate TR with severe pulmonary hypertension (PASP 60-65 mmHg). Recommendations CHRONIC KIDNEY DISEASE: -- Creatinine remains stable at ~ 2.0 -- Patient will require AVF creation as outpatient. This will be coordinated by her primary Revenue Director HYPONATREMIA: -- Mild, asymptomatic. Clinically euvolemic to mildly volume expanded -- Will obtain PRP, serum & urine osmolality in am -- Continue Furosemide 40 mg po BID URINARY RETENTION: -- Resolved. Patient now voiding on her own. Will need outpatient Urology follow up (she is established w/ [facility]) -- Monitor UO CV: -- Atrial fibrillation. HR is controlled. BP is acceptable. Troponin is trending downward -- TTE this hospitalization revealed moderate to severe MR and moderate TR with severe pulmonary hypertension (PASP 60-65 mmHg).
--- NOTE | 2017-06-29 12:11 | Progress Note ---
Subjective Date of Service: Jun 29, 2017. Subjective Pt evaluation today including: conversation w/ patient, physical exam, lab review, conversation w/ community resource consultant, review of inpatient medication list Pain: no chest pain PO Intake: adequate Voiding: no voiding problems patient without chest pain this AM, feeling better, breathing well eating well urinating better, emptying bladder discussed case with Dr. Ivan and Dr. Collier reviewed labs, Cr is holding at 2.24 with Lasix BID adequate diuresis, -4100 for admission na low at 130 troponin trending down, no further checks Problem List Medical Problems: (1) Acute bronchitis Status: Acute (2) Altered mental status Status: Acute (3) Anemia Status: Acute (4) Atypical chest pain Status: Acute (5) CKD (chronic kidney disease) Status: Chronic (6) Degenerative disc disease, cervical Status: Acute (7) E86.0 Status: Acute (8) Edema Status: Acute (9) EKG, abnormal Status: Acute (10) Hyperglycemia Status: Acute (11) Hyperglycemia due to type 2 diabetes mellitus Status: Acute (12) Hyponatremia Status: Acute (13) Incarcerated right inguinal hernia Status: Acute (14) Left leg cellulitis Status: Acute (15) Leukocytosis Status: Acute (16) Pneumonia Status: Acute (17) Pneumonitis Status: Acute (18) Pneumonitis Status: Acute (19) Respiratory distress Status: Acute (20) Small bowel obstruction Status: Acute (21) UTI (urinary tract infection) Status: Acute (22) Vomiting and diarrhea Status: Acute (23) Weakness Status: Acute Review of Systems Constitutional: + weakness, + fatigue Respiratory: + dyspnea on exertion All Other Systems: Reviewed and Negative Medications Current Inpatient Medications Medications (Trade) Dose Ordered Sig/Leslee Route Start Time Stop Time Status Last Admin Dose Admin Acetaminophen (Tylenol Tab) 650 mg Q4H PRN PO 06/25/17 17:15 07/25/17 17:14 06/27/17 03:44 650 MG Aspirin (Ecotrin Tab) 81 mg QAM PO 06/26/17 09:00 07/26/17 08:59 06/29/17 08:47 81 MG Budesonide/ Formoterol Fumarate (Symbicort 160/ 4.5 Inh) 2 puffs BID INH 06/25/17 21:00 07/25/17 20:59 06/29/17 08:49 2 PUFFS Docusate Sodium (coLACE CAP) 100 mg BID PO 06/25/17 21:00 07/25/17 20:59 06/29/17 08:48 100 MG Escitalopram Oxalate (Lexapro Tab) 5 mg DAILY PO 06/26/17 09:00 07/26/17 08:59 06/29/17 08:48 5 MG Insulin Glargine (Lantus Solostar Pen) 10 units QPM SC 06/25/17 21:00 07/25/17 20:59 06/28/17 21:30 10 UNITS Levothyroxine Sodium (Synthroid Tab) 50 mcg DAILYBB PO 06/26/17 06:00 07/26/17 05:59 06/29/17 05:53 50 MCG Lorazepam (Ativan Tab) 0.5 mg BID PO 06/25/17 21:00 07/25/17 20:59 06/29/17 09:01 0.5 MG Magnesium Oxide (Mag-Ox Tab) 400 mg QAM PO 06/26/17 09:00 07/26/17 08:59 06/29/17 09:02 400 MG Metoprolol Tartrate (Lopressor Tab) 100 mg BID PO 06/25/17 21:00 07/25/17 20:59 06/29/17 08:48 100 MG Nitroglycerin (Nitrostat Tab) 0.4 mg UD PRN UT 06/25/17 17:15 07/25/17 17:14 06/28/17 07:29 0.4 MG Cholecalciferol (Vitamin D Tab) 1,000 inter.unit QAM PO 06/26/17 09:00 07/26/17 08:59 06/29/17 08:47 1,000 INTER.UNIT Cyanocobalamin (Vitamin B-12 Tab) 1,000 mcg QAM PO 06/26/17 09:00 07/26/17 08:59 06/29/17 08:47 1,000 MCG Diltiazem HCl (Cardizem Cd Cap) 240 mg QAM PO 06/26/17 09:00 07/26/17 08:59 06/29/17 08:49 240 MG Ferrous Sulfate (Feosol Tab) 325 mg QAM PO 06/26/17 09:00 07/26/17 08:59 06/29/17 08:47 325 MG Pantoprazole Sodium (Protonix Tab) 40 mg QAM PO 06/26/17 09:00 07/26/17 08:59 06/29/17 08:47 40 MG Fluticasone Propionate (Flonase Nasal [place]) 2 sprays DAILY NA 06/26/17 09:00 07/26/17 08:59 06/28/17 08:20 2 SPRAYS Albuterol/ Ipratropium (Duoneb) 3 ml QIDR PRN INH 06/25/17 17:15 07/25/17 17:14 06/28/17 19:43 3 ML Insulin Aspart (novoLOG ASPART) SLIDING SCALE If C... ACHS SC 06/25/17 21:00 07/25/17 20:59 06/28/17 21:30 7 UNITS Morphine Sulfate (MoRPHine SULFATE INJ) 2 mg Q4H PRN IV 06/25/17 17:30 07/09/17 17:29 Glucose (Glucose 40% Gel) 15-30 GRAMS 15 GRAMS... UD PRN PO 06/25/17 19:00 07/25/17 18:59 Glucose (Glucose Chew Tab) 4-8 Tablets 4 Tabl... UD PRN PO 06/25/17 19:00 07/25/17 18:59 Dextrose (Dextrose 50% 50ML Syringe) 25-50ML OF 50% DW IV FOR... UD PRN IV 06/25/17 19:00 07/25/17 18:59 Glucagon (Glucagon Inj) 1 mg UD PRN SQ 06/25/17 19:00 07/25/17 18:59 Miscellaneous (Iv Fluids Completed) 1 ea PRN PRN N/A 06/25/17 21:00 06/25/18 20:59 Heparin Sodium/ Dextrose 500 ml @ 20 mls/hr Q24H IV 06/28/17 10:00 07/28/17 09:59 06/29/17 10:16 20 MLS/HR Menthol (Nice Ruby) 1 ruby PRN PRN RUBY 06/28/17 21:30 07/28/17 21:29 06/28/17 21:39 1 RUBY Furosemide (Lasix Tab) 40 mg DAILY PO 06/29/17 09:00 07/27/17 08:59 4/7/18 08:47 40 MG Objective Vital Signs Date Time Temp Pulse Resp B/P (MAP) Pulse Ox O2 Delivery O2 Flow Rate FiO2 06/29/17 11:44 36.4 82 18 119/67 (84) 94 Room Air 06/29/17 08:00 Room Air 06/29/17 07:15 36.7 81 20 116/72 (87) 95 Room Air 06/29/17 04:00 Room Air 06/29/17 03:47 37.2 69 20 125/65 (85) 92 Room Air 06/28/17 23:59 Room Air 06/28/17 23:07 37.3 76 20 143/79 (100) 95 Room Air 06/28/17 20:00 Room Air 06/28/17 19:23 37.0 84 20 141/61 (87) 92 Room Air 06/28/17 16:00 Room Air 06/28/17 15:15 37.2 71 18 137/72 (93) 97 Room Air Physical Exam General Appearance: WD/WN, no apparent distress Eyes: normal inspection, EOMI, sclerae normal ENT: normal ENT inspection, hearing grossly normal, pharynx normal Neck: supple, no adenopathy, no JVD, trachea midline Respiratory/Chest: chest non-tender, lungs clear, no respiratory distress, no accessory muscle use, + decreased breath sounds Cardiovascular: no edema, no gallop, no JVD, no murmur, + irregularly irregular Abdomen: normal bowel sounds, non tender, soft, no organomegaly Extremities: normal range of motion, non-tender, normal inspection, no pedal edema, no calf tenderness, pelvis stable Neurologic/Psychiatric: 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 II-XII nml as tested, alert, normal mood/affect, oriented x 3, + motor weakness (generalized) Skin: normal color, warm/dry, no rash Laboratory Results Last 24 Hours Test 06/28/17 12:46 06/28/17 15:50 06/28/17 16:52 06/28/17 19:32 Troponin I 0.902 ng/ml 0.705 ng/ml Bedside Glucose 136 mg/dl Activated Partial Thromboplast Time 58.1 SECONDS Partial Thromboplastin Ratio 2.2 Test 06/28/17 20:43 06/29/17 06:16 06/29/17 06:29 06/29/17 11:35 Bedside Glucose 292 mg/dl 121 mg/dl 267 mg/dl White Blood Count 11.42 K/uL Red Blood Count 3.96 M/uL Hemoglobin 11.7 g/dL Hematocrit 34.6 % Mean Corpuscular Volume 87.4 fL Mean Corpuscular Hemoglobin 29.5 pg Mean Corpuscular Hemoglobin Concent 33.8 g/dl RDW Standard Deviation 44.5 fL RDW Coefficient of Variation 14.0 % Platelet Count 258 K/uL Mean Platelet Volume 9.0 fL Activated Partial Thromboplast Time 75.5 SECONDS Partial Thromboplastin Ratio 2.9 Sodium Level 130 mmol/L Potassium Level 4.4 mmol/L Chloride Level 97 mmol/L Carbon Dioxide Level 25 mmol/L Anion Gap 8.0 mmol/L Blood Urea Nitrogen 48 mg/dl Creatinine 2.24 mg/dl Est Creatinine Clear Calc Drug Dose 16.3 ml/min Estimated GFR () 22.0 Estimated GFR (Non- 19.0 BUN/Creatinine Ratio 21.5 Random Glucose 117 mg/dl Calcium Level 8.6 mg/dl Assessment and Plan Ms. 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 echo on 06/26 showed EF of 40-45%, severe MR, diastolic dysfunction - 4100 cc for the admission on lasix responding well to Lasix 40mg PO BID, continue based on nephrology recommendation continue Lopressor breathing much better today - NSTEMI: chest pain and elevated troponin, peaked at 1, trending down later in the day on 06/28 moved to tele heparin drip, aspirin cardiology following, agree with conservative care, cannot perform invasive testing due to renal function - CKD stage III/IV: nephrology following Cr stable at 2.24, continue Lasix BID likely needs a daily diuretic given her heart failure, maybe BID on discharge follows with nephrology in [place] normal, Na down to 130, will check osmolality has discussed HD with her bed setter as outpatient, she is open to it, no AV fistula placed yet Dr Collier encouraged her to have fistula placed as outpatient Hyponatremia - down to 130, continue to monitor, check osmolality Hyperkalemia - resolved, 4.4 today DMII - sugars controlled on Lantus 10 units and Novolog - continue to monitor for hypoglycemia, diabetic diet COPD - continue Symbicort - prn duonebs for sob Dyspnea - likely multifactorial with COPD, combined heart failure and severe pulmonary hypertension - no chronic hypoxia at this time but would likely develop this as diseases progress Anxiety - continue Lexapro Urinary Retention - h/o of this, was followed by urology and used to perform straight caths - urinating better over past two days, should follow up with urology DNR Heparin subq, scds keep on tele through the weekend, will need heparin another 24 hours, PT/OT evaluations
[2017-06-29] MEDS: FLUTICASONE PROPIONATE NA SPR 16 GM BTL SCH (12:21)
--- NOTE | 2017-06-29 14:35 | Cardiology Follow-Up ---
Cardiology Follow-Up Date of Service Jun 29, 2017. Cardiology Follow-Up SUBJECTIVE: 87-year-old woman with coronary artery disease (remote CABG and PCI), stage 4 chronic kidney disease, paroxysmal atrial fibrillation/pacemaker, moderate to severe MR/TR with pulmonary hypertension, and diastolic/systolic congestive heart failure who was admitted 06/25/17 with chest pain radiating to her neck. Her initial cardiac enzymes were negative, but she had recurrent chest pain yesterday in her troponin increased to 1.2 before dropping to 0.7 today. Baseline ECG has left bundle branch block, limiting issues fullness and evaluating her chest symptoms. Her chest pain yesterday was severe, today she notes only a 1/10 mild residual discomfort. She denies any current dyspnea and aside from minimal chest discomfort, is comfortable presently. PHYSICAL EXAMINATION: No distress. Vitals: afebrile. BP 119/67 pulse 82 and irregular, respirations 18 and nonlabored. Oxygen saturation 94 % on room air. Skin: No unusual lesions or ecchymosis. HEENT: Unremarkable. Neck: Jugular venous pulse just above the clavicle at 90, no carotid bruits. Lungs: Clear and equal breath sounds bilaterally. No wheezing or crackles. Cardiac: Slightly irregular rhythm with 2/6 apical holosystolic murmur radiating to the left sternal border and axilla. Abdomen: Benign. Extremities: Nontender with trace left leg edema only. Intact peripheral pulses. Neurologic: Normal affect, nonfocal DATA: ECG yesterday showed probable atrial flutter with left bundle branch block. Previous ECG showed electronically paced rhythm. Labs today with hemoglobin 11.7, white count 11.4, normal platelet count. Sodium was 130 with otherwise normal electrolytes, BUN 48 and creatinine 2.24 ( 47 in 2.3 yesterday). As noted, troponin increased to 1.2 before dropping to 0.9, then 0.7. PTT 75.5 on heparin. IMPRESSION: 1. Likely Non ST elevation myocardial infarction yesterday, minimal chest discomfort today. 2. Stage 4 chronic kidney disease, poor candidate for cardiac catheterization. 3. Paroxysmal atrial flutter/pacemaker, rate controlled currently. 4. Significant valvular disease (moderate to severe MR/TR with pulmonary hypertension). 5. Acute on chronic systolic and diastolic congestive heart failure, volume status improved, well compensated currently. DISCUSSION: NON-STEMI: Although ECG with left bundle branch block limits diagnostic accuracy , episode of significant chest pain associated with by peak & decay troponin pattern is most consistent with non ST elevation myocardial infarction. In this case, it could have been a thrombotic event rather than supply/demand mismatch, since she was not hemodynamically stressed and the symptoms were abrupt onset. Agree with continuing heparin for another 24 hours while monitoring her clinical status. Given the high likelihood a cardiac catheterization would result in contrast nephropathy/acute renal failure requiring dialysis, continued conservative management is warranted. She had been on atorvastatin 10 mg in the past, given her long cardiac history and current non STEMI would be reasonable to restart this. Also, will initiate clopidogrel 75 mg daily for her non STEMI. Obviously, will need to monitor for any bleeding on aspirin, clopidogrel, and heparin. AFLUTTER/PACER: Rate controlled on current regimen. Anticoagulated with heparin. MR/TR/PHT: Compensated. CHF: She appears euvolemic, will require close monitoring of her weight and volume status to adjust diuretic as outpatient.
[2017-06-29] MEDS ORDERED: CLOPIDOGREL BISULFATE 75 MG TAB PO ONE (14:45)
[2017-06-29] MEDS: FUROSEMIDE 40 MG TAB PO SCH (16:42)
[2017-06-29] MEDS: ALBUT/IPRATROP 3MG/0.5MG NEB 3 ML VIAL INH PRN (19:30)
[2017-06-29] MEDS: INSULIN GLARGINE SOLOSTAR 100 UNITS/ML 3 ML PEN SC SCH (20:43)
[2017-06-29] MEDS: ACETAMINOPHEN 325 MG TAB PO PRN ×2 (20:45→23:17)
[2017-06-29] MEDS: GUAIFENESIN 600 MG TABCR PO SCH (23:15)
[2017-06-30] VITALS (7 sets, daily range): BP systolic 121–139; BP diastolic 53–81; PULSE 59–81; TEMP 36.6–37; O2SAT 94–100
[2017-06-30] MEDS: ACETAMINOPHEN 325 MG TAB PO PRN ×2 (00:18→20:54)
[2017-06-30] MEDS: LEVOTHYROXINE 50 MCG TAB PO SCH (06:17)
[2017-06-30 07:03] LABS: HEMATOCRIT 35.4 % (37-47); HEMOGLOBIN 11.6 g/dL (12.0-16.0); MEAN CELL VOLUME 87.8 fL (80-100); MEAN CORPUSCULAR HEMOGLOBIN 28.8 pg (25-34); MEAN CORPUSCULAR HGB CONC 32.8 g/dl (32-36); PLATELET COUNT 218 K/uL (130-400); RED CELL DISTRIBUTION WIDTH SD 44.9 fL (36.4-46.3); WHITE BLOOD COUNT 8.25 K/uL (4.8-10.8)
[2017-06-30 07:38] LABS: CALCIUM 8.3 mg/dl (8.5-10.1); CREATININE 2.46 mg/dl (0.60-1.20); POTASSIUM 4.2 mmol/L (3.5-5.1)
[2017-06-30 07:55] LABS: PTT PATIENT 59.8 SECONDS (21.0-31.0)
[2017-06-30] MEDS: GUAIFENESIN 600 MG TABCR PO SCH ×2 (09:17→20:58)
[2017-06-30] MEDS: CHOLECALCIFEROL 1000 INTER.UNIT TAB PO SCH (09:17)
[2017-06-30] MEDS: DOCUSATE SODIUM 100 MG CAP PO SCH ×2 (09:17→20:52)
[2017-06-30] MEDS: FERROUS SULFATE 325 MG TAB PO SCH (09:17)
[2017-06-30] MEDS: PANTOprazole SOD 40 MG TAB PO SCH (09:17)
[2017-06-30] MEDS: LORAZEPAM 0.5 MG TAB PO SCH ×2 (09:17→20:52)
[2017-06-30] MEDS: FUROSEMIDE 40 MG TAB PO SCH ×2 (09:17→17:08)
[2017-06-30] MEDS: METOPROLOL TARTRATE 100 MG TAB PO SCH ×2 (09:17→20:53)
[2017-06-30] MEDS: ATORVASTATIN 10 MG TAB PO SCH (09:18)
[2017-06-30] MEDS: DILTIAZEM HCL 240 MG CAPCR PO SCH (09:18)
[2017-06-30] MEDS: ESCITALOPRAM OXALATE 10 MG TAB PO SCH (09:18)
[2017-06-30] MEDS: CYANOCOBALAMIN 500 MCG TAB (VIT B-12) PO SCH (09:18)
[2017-06-30] MEDS: ASPIRIN 81 MG ECTAB PO SCH (09:18)
[2017-06-30] MEDS: MAGNESIUM OXIDE 400 MG TAB PO SCH (09:18)
[2017-06-30] MEDS: BUDESONIDE/FORMOTEROL FUMARATE 160/4.5 60 PUFFS/INHALER INH SCH ×2 (09:18→20:51)
[2017-06-30] MEDS: CLOPIDOGREL BISULFATE 75 MG TAB PO SCH (09:18)
[2017-06-30] MEDS: FLUTICASONE PROPIONATE NA SPR 16 GM BTL SCH (09:19)
[2017-06-30] MEDS: INSULIN ASPART 100 UNITS/ML 3 ML PEN SC SCH ×4 (09:25→20:56)
[2017-06-30] MEDS: HEPARIN 25,000 UNIT/500ML D5W 500 ML IV SCH (09:26)
--- NOTE | 2017-06-30 10:28 | Nephrology Progress Note ---
Nephrology Progress Note Date of Service Jun 30, 2017. Chief Complaint Acute on chronic kidney injury Subjective Ms. Gil was seen & examined in the PCU this morning. She is on telemetry receiving IV heparin due to atrial fibrillation. Ms. Gil currently denies angina or dyspnea. She continues to diurese and denies difficulty voiding. Review of Systems Constitutional: No fever Cardiovascular: No chest pain Respiratory: No dyspnea at rest Abdomen: No pain, No nausea, No vomiting Extremities: No leg edema A complete review of systems was performed. Pertinent positives are noted above. All other systems are negative. Vital Signs Last 8 Hrs Date Time Temp Pulse Resp B/P (MAP) Pulse Ox O2 Delivery O2 Flow Rate FiO2 06/30/17 07:49 36.6 73 18 132/70 (90) 94 Room Air 06/30/17 03:25 36.6 81 20 130/65 (86) 94 Room Air Last Recorded Weight Weight (Kilograms): 71.100 Physical Exam General Appearance: no apparent distress Head: normocephalic, atraumatic Eyes: PERRL, EOMI Neck: no adenopathy Respiratory/Chest: lungs clear, no respiratory distress Cardiovascular: + irregularly irregular Abdomen/GI: normal bowel sounds, non tender, soft Extremities/Musculoskelatal: + swelling (trace pretibial edema) Neurologic/Psych: alert, oriented x 3 Family History Omitted secondary to age Social History Smokeless Tobacco Use: No Alcohol Use: none Drug Use: none Marital Status: Housing Status: assisted living ([facility]) Occupation: retired Laboratory Results Past 24 Hours 06/30/17 06:34 06/30/17 06:34 Test 06/29/17 11:35 06/29/17 14:31 06/29/17 16:27 06/29/17 16:45 Bedside Glucose 267 mg/dl (70-90) 152 mg/dl (70-90) Activated Partial Thromboplast Time 52.0 SECONDS (21.0-31.0) Partial Thromboplastin Ratio 2.0 Urine Osmolality 330 mOms/kg (500-800) Test 06/29/17 20:31 06/30/17 06:33 06/30/17 06:34 Bedside Glucose 228 mg/dl (70-90) 165 mg/dl (70-90) Red Blood Count 4.03 M/uL (4.2-5.4) Mean Corpuscular Volume 87.8 fL (80-100) Mean Corpuscular Hemoglobin 28.8 pg (25-34) Mean Corpuscular Hemoglobin Concent 32.8 g/dl (32-36) RDW Standard Deviation 44.9 fL (36.4-46.3) RDW Coefficient of Variation 14.0 % (11.5-14.5) Mean Platelet Volume 9.0 fL (7.4-10.4) Activated Partial Thromboplast Time 59.8 SECONDS (21.0-31.0) Partial Thromboplastin Ratio 2.3 Anion Gap 9.0 mmol/L (3-11) Est Creatinine Clear Calc Drug Dose 14.9 ml/min Estimated GFR () 19.6 Estimated GFR (Non- 16.9 BUN/Creatinine Ratio 19.0 (10-20) Osmolality 296 mOsm/kg (280-300) Calcium Level 8.3 mg/dl (8.5-10.1) Allergies Coded Allergies: Fenofibrate (Verified Allergy, Intermediate, rash, 05/07/17) Amoxicillin (Verified Allergy, Unknown, UNKNOWN, 05/07/17) Calcium Carbonate (Verified Allergy, Unknown, ., 06/27/17) Ciprofloxacin (Verified Allergy, Unknown, ., 06/27/17) Diphenhydramine (Verified Allergy, Unknown, ., 06/27/17) Fexofenadine (Verified Allergy, Unknown, UNKNOWN, 05/07/17) Irbesartan (Verified Allergy, Unknown, UNKNOWN, 05/07/17) Lidocaine (Verified Allergy, Unknown, ., 06/27/17) Niacin (Verified Allergy, Unknown, RASH, 05/07/17) Nystatin (Verified Allergy, Unknown, ., 06/27/17) Penicillins (Verified Allergy, Unknown, UNKNOWN, 05/07/17) Sulfa Antibiotics (Verified Allergy, Unknown, UNKNOWN, 05/07/17) Flumazenil (Verified Adverse Reaction, Intermediate, DELIRIUM, 06/27/17) anxious, increased heart rate, increased blood pressure Tomato (Verified Adverse Reaction, Unknown, GI SYMPTOMS, 06/27/17) Medications Current Inpatient Medications Medications (Trade) Dose Ordered Sig/Leslee Route Start Time Stop Time Status Last Admin Dose Admin Acetaminophen (Tylenol Tab) 650 mg Q4H PRN PO 06/25/17 17:15 07/25/17 17:14 06/29/17 20:45 650 MG Aspirin (Ecotrin Tab) 81 mg QAM PO 06/26/17 09:00 07/26/17 08:59 06/30/17 09:18 81 MG Budesonide/ Formoterol Fumarate (Symbicort 160/ 4.5 Inh) 2 puffs BID INH 06/25/17 21:00 07/25/17 20:59 06/30/17 09:18 2 PUFFS Docusate Sodium (coLACE CAP) 100 mg BID PO 06/25/17 21:00 07/25/17 20:59 06/30/17 09:17 100 MG Escitalopram Oxalate (Lexapro Tab) 5 mg DAILY PO 06/26/17 09:00 07/26/17 08:59 06/30/17 09:18 5 MG Insulin Glargine (Lantus Solostar Pen) 10 units QPM SC 06/25/17 21:00 07/25/17 20:59 06/29/17 20:43 10 UNITS Levothyroxine Sodium (Synthroid Tab) 50 mcg DAILYBB PO 06/26/17 06:00 07/26/17 05:59 06/30/17 06:17 50 MCG Lorazepam (Ativan Tab) 0.5 mg BID PO 06/25/17 21:00 07/25/17 20:59 06/30/17 09:17 0.5 MG Magnesium Oxide (Mag-Ox Tab) 400 mg QAM PO 06/26/17 09:00 07/26/17 08:59 06/30/17 09:18 400 MG Metoprolol Tartrate (Lopressor Tab) 100 mg BID PO 06/25/17 21:00 07/25/17 20:59 06/30/17 09:17 100 MG Nitroglycerin (Nitrostat Tab) 0.4 mg UD PRN UT 06/25/17 17:15 07/25/17 17:14 06/28/17 07:29 0.4 MG Cholecalciferol (Vitamin D Tab) 1,000 inter.unit QAM PO 06/26/17 09:00 07/26/17 08:59 06/30/17 09:17 1,000 INTER.UNIT Cyanocobalamin (Vitamin B-12 Tab) 1,000 mcg QAM PO 06/26/17 09:00 07/26/17 08:59 06/30/17 09:18 1,000 MCG Diltiazem HCl (Cardizem Cd Cap) 240 mg QAM PO 06/26/17 09:00 07/26/17 08:59 06/30/17 09:18 240 MG Ferrous Sulfate (Feosol Tab) 325 mg QAM PO 06/26/17 09:00 07/26/17 08:59 06/30/17 09:17 325 MG Pantoprazole Sodium (Protonix Tab) 40 mg QAM PO 06/26/17 09:00 07/26/17 08:59 06/30/17 09:17 40 MG Fluticasone Propionate (Flonase Nasal [place]) 2 sprays DAILY NA 06/26/17 09:00 07/26/17 08:59 06/30/17 09:19 2 SPRAYS Albuterol/ Ipratropium (Duoneb) 3 ml QIDR PRN INH 06/25/17 17:15 07/25/17 17:14 06/29/17 19:30 3 ML Insulin Aspart (novoLOG ASPART) SLIDING SCALE If C... ACHS SC 06/25/17 21:00 07/25/17 20:59 06/30/17 09:25 1 UNITS Morphine Sulfate (MoRPHine SULFATE INJ) 2 mg Q4H PRN IV 06/25/17 17:30 07/09/17 17:29 Glucose (Glucose 40% Gel) 15-30 GRAMS 15 GRAMS... UD PRN PO 06/25/17 19:00 07/25/17 18:59 Glucose (Glucose Chew Tab) 4-8 Tablets 4 Tabl... UD PRN PO 06/25/17 19:00 07/25/17 18:59 Dextrose (Dextrose 50% 50ML Syringe) 25-50ML OF 50% DW IV FOR... UD PRN IV 06/25/17 19:00 07/25/17 18:59 Glucagon (Glucagon Inj) 1 mg UD PRN SQ 06/25/17 19:00 07/25/17 18:59 Miscellaneous (Iv Fluids Completed) 1 ea PRN PRN N/A 06/25/17 21:00 06/25/18 20:59 Heparin Sodium/ Dextrose 500 ml @ 20 mls/hr Q24H IV 06/28/17 10:00 07/28/17 09:59 06/30/17 09:26 20 MLS/HR Menthol (Nice Ruby) 1 ruby PRN PRN RUBY 06/28/17 21:30 07/28/17 21:29 06/28/17 21:39 1 RUBY Furosemide (Lasix Tab) 40 mg BID17 PO 06/29/17 17:00 07/27/17 08:59 06/30/17 09:17 40 MG Atorvastatin Calcium (Lipitor Tab) 10 mg QAM PO 06/30/17 09:00 07/30/17 08:59 06/30/17 09:18 10 MG Clopidogrel Bisulfate (plAVix TAB) 75 mg QAM PO 06/30/17 09:00 07/30/17 08:59 06/30/17 09:18 75 MG Guaifenesin (Mucinex Contr Rel Tab) 600 mg BID PO 06/29/17 23:15 07/29/17 23:14 06/30/17 09:17 600 MG Impression (1) Acute exacerbation of CHF (congestive heart failure) (2) Acute kidney injury (3) CKD (chronic kidney disease) (4) DM (diabetes mellitus) (5) Atrial fibrillation (6) Bladder outflow obstruction (7) Hypertension (8) Severe mitral regurgitation (9) Moderate to severe pulmonary hypertension Ms. Gil has CKD stage IV (advanced impairment). Baseline creatinine has been ~ 2.0. Renal impairment is on the basis of diabetic nephropathy and impaired perfusion due to valvular heart disease. Her primary Ic Design Engineer has been Dr. Edmund Urias in [place], [place]. Urine sediment has been benign. Urinary protein has been low grade. Renal US this admission was negative for obstruction but PVR was > 400 cc. This improved following urinary straight catheterization PMH is ASCVD, CKD, HTN, AODM and atrial fibrillation/SSS with diastolic CHF. TTE this hospitalization revealed moderate to severe MR and moderate TR with severe pulmonary hypertension (PASP 60-65 mmHg). Recommendations CHRONIC KIDNEY DISEASE: -- Creatinine is stabilizing at 2.2 - 2.4. Electrolyte balance is acceptable at this time -- Patient will require AVF creation as outpatient. This will be coordinated by her primary Ic Design Engineer HYPONATREMIA: -- Mild, asymptomatic. Clinically euvolemic to mildly volume expanded -- Hyponatremia in part related to poor perfusion associated with valvular heart disease. Uosm 330 -- Continue Furosemide 40 mg po BID URINARY RETENTION: -- Resolved. Patient now voiding on her own. Will need outpatient Urology follow up (she is established w/ [facility]) -- Monitor UO CV: -- Atrial fibrillation. HR is controlled. BP is acceptable. Troponin is trending downward -- TTE this hospitalization revealed moderate to severe MR and moderate TR with severe pulmonary hypertension (PASP 60-65 mmHg).
--- NOTE | 2017-06-30 14:50 | Cardiology Follow-Up ---
Cardiology Follow-Up Date of Service Jun 30, 2017. Cardiology Follow-Up SUBJECTIVE: 87-year-old woman with coronary artery disease (remote CABG and PCI), stage 4 chronic kidney disease, paroxysmal atrial fibrillation/pacemaker, moderate to severe MR/TR with pulmonary hypertension, and diastolic/systolic congestive heart failure who was admitted 06/25/17 with chest pain radiating to her neck. Her initial cardiac enzymes were negative, but she had recurrent chest pain 2 days ago with troponin increasing to 1.2 before dropping to 0.7. Baseline ECG has left bundle branch block, limiting issues fullness and evaluating her chest symptoms. Her chest pain was severe 2 days ago, yesterday was only 1/10 mild residual discomfort in the morning, her chest pain has since resolved completely. She denies any current chest pain or dyspnea. She does note a cough with occasional grrenish sputum. PHYSICAL EXAMINATION: No distress. Vitals: afebrile. BP 121/77, pulse 77 and irregular, respirations 20 and nonlabored. Oxygen saturation 97 % on room air. Skin: No unusual lesions or ecchymosis. HEENT: Unremarkable. Neck: Jugular venous pulse 1/[address] the angle of the jaw at 90, no carotid bruits. Lungs: Clear and equal breath sounds bilaterally. No wheezing or crackles. Cardiac: Slightly irregular rhythm with 2/6 apical holosystolic murmur radiating to the left sternal border and axilla. Abdomen: Benign. Extremities: Nontender with trace left leg edema only. Intact peripheral pulses. Neurologic: Normal affect, nonfocal DATA: Labs today with hemoglobin 11.6, white count 8.25, normal platelet count. Sodium was 131 with otherwise normal electrolytes, BUN 47 and creatinine 2.46 ( 48 in 2.24 yesterday). PTT 59.8 on heparin. IMPRESSION: 1. Likely Non ST elevation myocardial infarction 4/6, no chest discomfort today. 2. Stage 4 chronic kidney disease, poor candidate for cardiac catheterization. 3. Paroxysmal atrial flutter/pacemaker, rate controlled currently. 4. Significant valvular disease (moderate to severe MR/TR with pulmonary hypertension). 5. Acute on chronic systolic and diastolic congestive heart failure, volume status improved, well compensated currently. DISCUSSION: NON-STEMI: Agree with continuing heparin for another 24 hours while monitoring her clinical status. Given the high likelihood a cardiac catheterization would result in contrast nephropathy/acute renal failure requiring dialysis, continued conservative management is warranted. She was initiated on atorvastatin and clopidogrel 75 mg daily for her non STEMI. Will need to monitor for any bleeding on aspirin, clopidogrel, and heparin. AFLUTTER/PACER: Rate controlled on current regimen. Anticoagulated with heparin currently. She has not been on chronic anticoagulation per her primary homicide squad captain (Dr. Guido). MR/TR/PHT: Compensated. CHF: She appears midly hypervolemic but near baseline, will require close monitoring of her weight and volume status to adjust diuretic as outpatient.
--- NOTE | 2017-06-30 15:19 | Progress Note ---
Subjective Date of Service: Jun 30, 2017. Subjective Pt evaluation today including: conversation w/ patient, conversation w/ family , physical exam, lab review, conversation w/ loan consultant, review of inpatient medication list Pain: no pain PO Intake: adequate Voiding: no voiding problems patient doing well, ambulating with assistance no chest pain, breathing well discussed with Dr. Ivan and Dr. Collier reviewed labs, Cr is 2.46, - 4200mL for admission updated patient's son over the phone, answered all his questions Problem List Medical Problems: (1) Acute bronchitis Status: Acute (2) Altered mental status Status: Acute (3) Anemia Status: Acute (4) Atypical chest pain Status: Acute (5) CKD (chronic kidney disease) Status: Chronic (6) Degenerative disc disease, cervical Status: Acute (7) E86.0 Status: Acute (8) Edema Status: Acute (9) EKG, abnormal Status: Acute (10) Hyperglycemia Status: Acute (11) Hyperglycemia due to type 2 diabetes mellitus Status: Acute (12) Hyponatremia Status: Acute (13) Incarcerated right inguinal hernia Status: Acute (14) Left leg cellulitis Status: Acute (15) Leukocytosis Status: Acute (16) Pneumonia Status: Acute (17) Pneumonitis Status: Acute (18) Pneumonitis Status: Acute (19) Respiratory distress Status: Acute (20) Small bowel obstruction Status: Acute (21) UTI (urinary tract infection) Status: Acute (22) Vomiting and diarrhea Status: Acute (23) Weakness Status: Acute Review of Systems Constitutional: + weakness, + fatigue Respiratory: + dyspnea on exertion All Other Systems: Reviewed and Negative Medications Current Inpatient Medications Medications (Trade) Dose Ordered Sig/Leslee Route Start Time Stop Time Status Last Admin Dose Admin Acetaminophen (Tylenol Tab) 650 mg Q4H PRN PO 06/25/17 17:15 07/25/17 17:14 06/29/17 20:45 650 MG Aspirin (Ecotrin Tab) 81 mg QAM PO 06/26/17 09:00 07/26/17 08:59 06/30/17 09:18 81 MG Budesonide/ Formoterol Fumarate (Symbicort 160/ 4.5 Inh) 2 puffs BID INH 06/25/17 21:00 07/25/17 20:59 06/30/17 09:18 2 PUFFS Docusate Sodium (coLACE CAP) 100 mg BID PO 06/25/17 21:00 07/25/17 20:59 06/30/17 09:17 100 MG Escitalopram Oxalate (Lexapro Tab) 5 mg DAILY PO 06/26/17 09:00 07/26/17 08:59 06/30/17 09:18 5 MG Insulin Glargine (Lantus Solostar Pen) 10 units QPM SC 06/25/17 21:00 07/25/17 20:59 06/29/17 20:43 10 UNITS Levothyroxine Sodium (Synthroid Tab) 50 mcg DAILYBB PO 06/26/17 06:00 07/26/17 05:59 06/30/17 06:17 50 MCG Lorazepam (Ativan Tab) 0.5 mg BID PO 06/25/17 21:00 07/25/17 20:59 06/30/17 09:17 0.5 MG Magnesium Oxide (Mag-Ox Tab) 400 mg QAM PO 06/26/17 09:00 07/26/17 08:59 06/30/17 09:18 400 MG Metoprolol Tartrate (Lopressor Tab) 100 mg BID PO 06/25/17 21:00 07/25/17 20:59 06/30/17 09:17 100 MG Nitroglycerin (Nitrostat Tab) 0.4 mg UD PRN UT 06/25/17 17:15 07/25/17 17:14 06/28/17 07:29 0.4 MG Cholecalciferol (Vitamin D Tab) 1,000 inter.unit QAM PO 06/26/17 09:00 07/26/17 08:59 06/30/17 09:17 1,000 INTER.UNIT Cyanocobalamin (Vitamin B-12 Tab) 1,000 mcg QAM PO 06/26/17 09:00 07/26/17 08:59 06/30/17 09:18 1,000 MCG Diltiazem HCl (Cardizem Cd Cap) 240 mg QAM PO 06/26/17 09:00 07/26/17 08:59 06/30/17 09:18 240 MG Ferrous Sulfate (Feosol Tab) 325 mg QAM PO 06/26/17 09:00 07/26/17 08:59 06/30/17 09:17 325 MG Pantoprazole Sodium (Protonix Tab) 40 mg QAM PO 06/26/17 09:00 07/26/17 08:59 06/30/17 09:17 40 MG Fluticasone Propionate (Flonase Nasal [place]) 2 sprays DAILY NA 06/26/17 09:00 07/26/17 08:59 06/30/17 09:19 2 SPRAYS Albuterol/ Ipratropium (Duoneb) 3 ml QIDR PRN INH 06/25/17 17:15 07/25/17 17:14 06/29/17 19:30 3 ML Insulin Aspart (novoLOG ASPART) SLIDING SCALE If C... ACHS SC 06/25/17 21:00 07/25/17 20:59 06/30/17 12:14 4 UNITS Morphine Sulfate (MoRPHine SULFATE INJ) 2 mg Q4H PRN IV 06/25/17 17:30 07/09/17 17:29 Glucose (Glucose 40% Gel) 15-30 GRAMS 15 GRAMS... UD PRN PO 06/25/17 19:00 07/25/17 18:59 Glucose (Glucose Chew Tab) 4-8 Tablets 4 Tabl... UD PRN PO 06/25/17 19:00 07/25/17 18:59 Dextrose (Dextrose 50% 50ML Syringe) 25-50ML OF 50% DW IV FOR... UD PRN IV 06/25/17 19:00 07/25/17 18:59 Glucagon (Glucagon Inj) 1 mg UD PRN SQ 06/25/17 19:00 07/25/17 18:59 Miscellaneous (Iv Fluids Completed) 1 ea PRN PRN N/A 06/25/17 21:00 06/25/18 20:59 Heparin Sodium/ Dextrose 500 ml @ 20 mls/hr Q24H IV 06/28/17 10:00 07/28/17 09:59 06/30/17 09:26 20 MLS/HR Menthol (Nice Ruby) 1 ruby PRN PRN RUBY 06/28/17 21:30 07/28/17 21:29 06/28/17 21:39 1 RUBY Furosemide (Lasix Tab) 40 mg BID17 PO 06/29/17 17:00 07/27/17 08:59 06/30/17 09:17 40 MG Atorvastatin Calcium (Lipitor Tab) 10 mg QAM PO 06/30/17 09:00 07/30/17 08:59 06/30/17 09:18 10 MG Clopidogrel Bisulfate (plAVix TAB) 75 mg QAM PO 06/30/17 09:00 07/30/17 08:59 06/30/17 09:18 75 MG Guaifenesin (Mucinex Contr Rel Tab) 600 mg BID PO 06/29/17 23:15 07/29/17 23:14 06/30/17 09:17 600 MG Objective Vital Signs Date Time Temp Pulse Resp B/P (MAP) Pulse Ox O2 Delivery O2 Flow Rate FiO2 06/30/17 12:00 Room Air 06/30/17 11:50 36.7 77 20 121/77 (92) 97 Room Air 06/30/17 08:00 Room Air 06/30/17 07:49 36.6 73 18 132/70 (90) 94 Room Air 06/30/17 03:25 36.6 81 20 130/65 (86) 94 Room Air 06/29/17 23:59 36.8 71 20 121/57 (78) 93 Room Air 06/29/17 20:00 Room Air 06/29/17 19:55 37.1 91 18 131/64 (86) 93 Room Air 06/29/17 19:31 82 18 95 Room Air 06/29/17 16:59 36.9 80 18 116/59 (78) 95 Room Air 06/29/17 16:00 Room Air Physical Exam General Appearance: WD/WN, no apparent distress Eyes: normal inspection, EOMI, sclerae normal ENT: normal ENT inspection, hearing grossly normal, pharynx normal Neck: supple, no adenopathy, no JVD, trachea midline Respiratory/Chest: chest non-tender, lungs clear, normal breath sounds, no respiratory distress, no accessory muscle use Cardiovascular: regular rate, rhythm, no edema, no gallop, no JVD, no murmur Abdomen: normal bowel sounds, non tender, soft, no organomegaly Extremities: normal range of motion, non-tender, normal inspection, no pedal edema, no calf tenderness, pelvis stable Neurologic/Psychiatric: 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, no motor/sensory deficits, alert, normal mood/affect, oriented x 3 Skin: normal color, warm/dry, no rash Laboratory Results Last 24 Hours Test 06/29/17 16:27 06/29/17 16:45 06/29/17 20:31 06/30/17 06:33 Bedside Glucose 152 mg/dl 228 mg/dl 165 mg/dl Urine Osmolality 330 mOms/kg Test 06/30/17 06:34 06/30/17 11:02 White Blood Count 8.25 K/uL Red Blood Count 4.03 M/uL Hemoglobin 11.6 g/dL Hematocrit 35.4 % Mean Corpuscular Volume 87.8 fL Mean Corpuscular Hemoglobin 28.8 pg Mean Corpuscular Hemoglobin Concent 32.8 g/dl RDW Standard Deviation 44.9 fL RDW Coefficient of Variation 14.0 % Platelet Count 218 K/uL Mean Platelet Volume 9.0 fL Activated Partial Thromboplast Time 59.8 SECONDS Partial Thromboplastin Ratio 2.3 Sodium Level 131 mmol/L Potassium Level 4.2 mmol/L Chloride Level 96 mmol/L Carbon Dioxide Level 26 mmol/L Anion Gap 9.0 mmol/L Blood Urea Nitrogen 47 mg/dl Creatinine 2.46 mg/dl Est Creatinine Clear Calc Drug Dose 14.9 ml/min Estimated GFR () 19.6 Estimated GFR (Non- 16.9 BUN/Creatinine Ratio 19.0 Random Glucose 171 mg/dl Osmolality 296 mOsm/kg Calcium Level 8.3 mg/dl Bedside Glucose 239 mg/dl Assessment and Plan Ms. 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 echo on 06/26 showed EF of 40-45%, severe MR, diastolic dysfunction - 4200 cc for the admission on lasix responding well to Lasix 40mg PO BID, continue based on nephrology recommendation continue Lopressor breathing much better past few days, lungs clear - NSTEMI: chest pain and elevated troponin, peaked at 1 on 06/28 in the morning, trending down later in the day on 06/28 moved to tele heparin drip for 72 hours which will be tomorrow morning, aspirin 81mg daily cardiology following, agree with conservative care, cannot perform invasive testing due to renal function - CKD stage III/IV: nephrology following Cr stable at 2.46, continue Lasix BID per nephrology likely needs a daily diuretic given her heart failure, maybe BID on discharge follows with nephrology in [place] normal, Na down to 131 has discussed HD with her station usher as outpatient, she is open to it, no AV fistula placed yet Dr Collier encouraged her to have fistula placed as outpatient Hyponatremia - down to 131, continue to monitor Hyperkalemia - resolved DMII - sugars controlled on Lantus 10 units and Novolog - continue to monitor for hypoglycemia, diabetic diet COPD - continue Symbicort - prn duonebs for sob Dyspnea - likely multifactorial with COPD, combined heart failure and severe pulmonary hypertension - no chronic hypoxia at this time but would likely develop this as diseases progress Anxiety - continue Lexapro Urinary Retention - h/o of this, was followed by urology and used to perform straight caths - urinating better over past two days, should follow up with urology ([facility], Dr. Adames) DNR Heparin subq, scds keep on tele through the weekend, will need heparin another 24 hours, PT/OT evaluations patient interested in going to [facility] if she is determined to need rehab
[2017-06-30] MEDS: ALBUT/IPRATROP 3MG/0.5MG NEB 3 ML VIAL INH PRN ×2 (15:44→19:18)
[2017-06-30] MEDS: INSULIN GLARGINE SOLOSTAR 100 UNITS/ML 3 ML PEN SC SCH (20:54)
[2017-06-30] MEDS: GUAIFENESIN SUGAR FREE 200 MG/10 ML UDC PO PRN (21:04)
[2017-07-01] VITALS (7 sets, daily range): BP systolic 134–163; BP diastolic 56–76; PULSE 57–68; TEMP 36.5–37.1; O2SAT 92–97
[2017-07-01] MEDS: GUAIFENESIN SUGAR FREE 200 MG/10 ML UDC PO PRN (06:12)
[2017-07-01] MEDS: LEVOTHYROXINE 50 MCG TAB PO SCH (06:12)
[2017-07-01 07:43] LABS: PTT PATIENT 51.8 SECONDS (21.0-31.0)
[2017-07-01 07:55] LABS: CALCIUM 8.5 mg/dl (8.5-10.1); CREATININE 2.55 mg/dl (0.60-1.20); POTASSIUM 4.1 mmol/L (3.5-5.1)
[2017-07-01] MEDS: FLUTICASONE PROPIONATE NA SPR 16 GM BTL SCH (08:17)
[2017-07-01] MEDS: BUDESONIDE/FORMOTEROL FUMARATE 160/4.5 60 PUFFS/INHALER INH SCH ×2 (08:17→21:15)
[2017-07-01] MEDS: FERROUS SULFATE 325 MG TAB PO SCH (08:19)
[2017-07-01] MEDS: PANTOprazole SOD 40 MG TAB PO SCH (08:19)
[2017-07-01] MEDS: GUAIFENESIN 600 MG TABCR PO SCH ×2 (08:19→21:14)
[2017-07-01] MEDS: ESCITALOPRAM OXALATE 10 MG TAB PO SCH (08:19)
[2017-07-01] MEDS: FUROSEMIDE 40 MG TAB PO SCH ×2 (08:19→17:48)
[2017-07-01] MEDS: DOCUSATE SODIUM 100 MG CAP PO SCH ×2 (08:19→21:15)
[2017-07-01] MEDS: CYANOCOBALAMIN 500 MCG TAB (VIT B-12) PO SCH (08:20)
[2017-07-01] MEDS: CLOPIDOGREL BISULFATE 75 MG TAB PO SCH (08:21)
[2017-07-01] MEDS: ASPIRIN 81 MG ECTAB PO SCH (08:21)
[2017-07-01] MEDS: ATORVASTATIN 10 MG TAB PO SCH (08:22)
[2017-07-01] MEDS: CHOLECALCIFEROL 1000 INTER.UNIT TAB PO SCH (08:22)
[2017-07-01] MEDS: DILTIAZEM HCL 240 MG CAPCR PO SCH (08:23)
[2017-07-01] MEDS: LORAZEPAM 0.5 MG TAB PO SCH ×2 (08:25→21:13)
[2017-07-01] MEDS: INSULIN ASPART 100 UNITS/ML 3 ML PEN SC SCH ×4 (08:28→21:12)
[2017-07-01] MEDS: MAGNESIUM OXIDE 400 MG TAB PO SCH (08:29)
[2017-07-01] MEDS: METOPROLOL TARTRATE 100 MG TAB PO SCH ×2 (08:29→21:14)
--- NOTE | 2017-07-01 09:03 | Cardiology Follow-Up ---
Subjective Date of Service: Jul 01, 2017. Pt evaluation today including: conversation w/ patient, physical exam, lab review, review of inpatient medication list History of Present Illness This is a very pleasant 87-year-old woman who has known coronary disease including bypass surgery in 2006 and intervention in 2009. She also has a pacemaker in place, this is a [employer] device implanted in 2012, I believe for sick sinus syndrome. She had evaluation for chest discomfort in April 2014, her echocardiogram demonstrated normal left ventricular function and this was felt to be musculoskeletal and not due to coronary disease. She then had admission on December 29, 2014 for shortness of breath, this was felt to be due to a respiratory infection. This was treated and she was discharged, however at home she apparently continued to feel poorly. She also has a history of atrial fibrillation a, she was on warfarin years ago but apparently after conversation with her vehicle return associate (Dr. Guido) and her difficulty with handling the warfarin it was decided to keep her off of anti coagulation. It was not clear to me how much time she spends an atrial fibrillation, her pacemaker does monitor for atrial fibrillation and in early December 2014 when she was here interrogation showed that she had about 50 percent of the time in atrial fibrillation although that can be unreliable. She was in sinus rhythm when she was here in August of 2013 and in April of 2014. She seems to be asymptomatic during the arrhythmia. I believe I had started her on Eliquis at the time for stroke prevention. She tells me that since then her vehicle return associate has told her that she should be on aspirin, not an anticoagulant. She was admitted with chest discomfort. She described chest discomfort associated with severe shortness of breath, the symptoms had been worse recently and she also describes feeling very tired and fatigued. Cardiac enzymes were negative at that time. On June 28, 2017 she developed chest discomfort radiation to her back and neck, cardiac enzymes were positive with this discomfort, her troponin peaked at 1.2 on June 28, 2017. She was treated conservatively due to her high risk for cardiac intervention. Of note she was in atrial fibrillation was started around that time, that converted to sinus rhythm around 9 AM on June 30, 2017. She was unaware of the arrhythmia, in part her pacemaker controls her slow heart rate and pauses however her heart rate is fast but she was not aware of that. This morning she describes various types of chest discomfort, it is a little difficult to sort out. She has had no further chest and back discomfort but is complaining of throat discomfort associated with a cough. Social History Smoking Status: Never Smoker History of Alcohol Use: No Review of Systems Respiratory: + dyspnea on exertion Cardiac: + chest pain Medications Cardiovascular: Item Value Date Time Atorvastatin 10 mg 06/30/17 0900 Calcium QAM/PO 07/01/17 0822 (Lipitor Tab) Clopidogrel 75 mg 06/30/17 0900 Bisulfate QAM/PO 07/01/17 0821 (plAVix TAB) Furosemide 40 mg 06/29/17 1700 (Lasix Tab) BID17/PO 07/01/17 0819 Heparin Sodium/ 500 ml @ 20 mls/hr 06/28/17 1000 Dextrose .Q24H/IV 06/30/17 0926 Aspirin 81 mg 06/26/17 0900 (Ecotrin Tab) QAM/PO 07/01/17 0821 Diltiazem HCl 240 mg 06/26/17 0900 (Cardizem Cd Cap) QAM/PO 07/01/17 0823 Metoprolol 100 mg 06/25/17 2100 Tartrate BID/PO 07/01/17 0829 (Lopressor Tab) Objective Vital Signs Past 12 Hours Date Time Temp Pulse Resp B/P (MAP) Pulse Ox O2 Delivery O2 Flow Rate FiO2 07/01/17 07:58 36.8 60 18 141/71 (94) 96 07/01/17 04:31 Room Air 07/01/17 03:42 36.9 60 17 144/56 (85) 93 Room Air 07/01/17 00:55 Room Air 07/01/17 00:37 36.8 60 20 134/58 (83) 92 Room Air Last Recorded Weight-Kilograms: 71.600 Physical Exam Constitutional: Level of Distress: NAD Lungs: Auscultation: breath sounds normal Cardiovascular: Heart Auscultation: irregular rate rhythm Extremities: no edema Constitutional: Alert, oriented, in no acute distress HEENT: Head is atraumatic and normocephalic. EOMs intact. Sclera anicteric. Face is symmetric. No perioral cyanosis. Mucous membranes moist. Neck: Supple, no appreciable JVD Pulmonary: Normal respiratory effort, decreased breath sounds but otherwise clear to auscultation bilaterally Cardiac: Irregularly irregular, normal S1 and S2, no gallops, no rubs, no obvious murmurs Extremities: 1+ left ankle edema. Trace pretibial edema bilaterally. No clubbing or cyanosis. Pulses intact Abdomen: Normal bowel sounds, soft, non-tender, no abdominal mass palpated Skin: Normal skin color, turgor, and pigmentation, no rash, no skin lesions Neurological: Oriented to person, place, and time Data Laboratory Results: Last 24 Hours Test 06/30/17 11:02 06/30/17 16:28 06/30/17 20:06 07/01/17 06:04 Bedside Glucose 239 mg/dl 213 mg/dl 284 mg/dl 159 mg/dl Test 07/01/17 06:46 Activated Partial Thromboplast Time 51.8 SECONDS Partial Thromboplastin Ratio 2.0 Sodium Level 131 mmol/L Potassium Level 4.1 mmol/L Chloride Level 96 mmol/L Carbon Dioxide Level 27 mmol/L Anion Gap 9.0 mmol/L Blood Urea Nitrogen 47 mg/dl Creatinine 2.55 mg/dl Est Creatinine Clear Calc Drug Dose 14.5 ml/min Estimated GFR () 18.8 Estimated GFR (Non- 16.2 BUN/Creatinine Ratio 18.4 Random Glucose 146 mg/dl Calcium Level 8.5 mg/dl Telemetry reviewed: Atrial fibrillation starting around June 28, 2017, converting to an atrial paced rhythm June 30, 2017 in the morning. Atrial pacing sense. During atrial fibrillation her heart rate was quite fast at times. Assessment and Plan 1. Chest discomfort: She has a history of coronary disease and on presentation with chest discomfort she had no enzyme rise, however on June 28, 2017 she did have chest discomfort with radiation to her back and neck associated with a slight enzyme rise, this is consistent with myocardial ischemia. The enzymes had a descending pattern so I do not believe she had an acute coronary event unless was a very small vessel. Probably not coincidently she was in atrial fibrillation at the time, remained in it for about 2 days at times with a quite rapid heart rate. She has had no further chest discomfort of this type, therefore I suspect she does not have ongoing ischemia. She was treated with intravenous heparin which I am going to discontinue today. We will need to watch her for this type of discomfort, I think we need to control her heart rate better as well. It is a little bit confusing because she has other types of chest discomfort as well which do not appear to be cardiac. Interestingly she appeared to have gone into atrial fibrillation at a controlled heart rate on June 28, 2017 when she had her chest discomfort. 2. Shortness of breath: Her shortness of breath on admission could have been an anginal equivalent, she did not have a lot of heart failure identified on exam or on chest x-ray however her BNP was elevated and with her kidney function she may have had fluid retention. She seemed to be responding symptomatically to diuresis, and her enzymes were negative at the time of presentation suggesting that she did not have an ischemic event. 3. Atrial fibrillation: She has a history of atrial fibrillation, I did not interrogate her pacemaker this visit. On telemetry she was atrially pacing for the most part when she came in, however on June 28, 2017 she did develop atrial fibrillation, often at a rapid heart rate, which has subsequently reverted to sinus rhythm. This may have something to do with her enzyme rise and angina and I suspect created demand ischemia. I think we need better rate control. She is on a lot of AV celena blocking medications including high dose of metoprolol and reasonable doses of diltiazem. She has a pacemaker in place so we do not need to worry about bradycardia, she evidently has sick sinus syndrome and is predominantly atrial pacing when she is not in atrial fibrillation. I am going to add digoxin to her regimen, I am going to empirically start her on 0.125 mg 3 times a week due to her renal insufficiency. I am going to give her 0.25 mg today however. 4. Pacemaker: Her pacemaker is atrially pacing virtually all the time when she is not in atrial fibrillation, it appears appropriate. She evidently gets regular pacemaker evaluations through her vehicle return associate, therefore I have not done that. 5. Moderate to severe mitral regurgitation: Her mitral regurgitation has progressed since our last evaluation, however I do not believe she is a candidate for repair. I would treat this medically as you with diuresis. 6. Severe pulmonary hypertension: There is little that can be done with this, this may be related to her shortness of breath and perhaps underlying lung disease as well as mitral regurgitation. I doubt there is much reversible component and I do not think further evaluation is warranted. This may respond to diuresis. Thank you for allowing me to participate in her care.
[2017-07-01] MEDS ORDERED: DIGOXIN 0.25 MG TAB PO ONE (10:00)
--- NOTE | 2017-07-01 11:02 | Hospitalist Progress Note ---
Hospitalist Progress Note Date of Service Jul 01, 2017. (Ana Downs ., CIERRA) Subjective Pt evaluation today including: conversation w/ patient, physical exam Voiding: no voiding problems Ms. Gil is feeling better this morning. She did have some throat discomfort for which she took some tylenol last night which has resolved. She is not having any chest pain today an does feel that her bedoya is improving. She continues to cough productive of greenish sputum. ROS Constitutional: no chills, aches, sweats or fever Respiratory:see HPI Cardiac: no chest pain, palpitations, edema, orthopnea or lightheadedness GI: no abdominal pain, nausea, vomiting, diarrhea or constipation : no dysuria or hesitancy Extremities: no joint pain or weakness Skin: no rash All other systems reviewed and negative (Ana Downs .CIERRA) Medications Medications Administered Medications (Trade) Dose Ordered Sig/Leslee Route Start Time Stop Time Status Last Admin Dose Admin Nitroglycerin (Nitrostat Tab) 0.4 mg Q5M PRN SL 06/25/17 14:30 06/25/17 18:44 DC 06/25/17 14:54 0.4 MG Aspirin (Aspirin Chew) 243 mg NOW STAT PO 06/25/17 14:20 06/25/17 14:23 DC 06/25/17 14:53 243 MG Acetaminophen (Tylenol Tab) 650 mg NOW STAT PO 06/25/17 14:20 06/25/17 14:23 DC 06/25/17 14:53 650 MG Heparin Sodium (Porcine) (Heparin Sq 5000 Unit/0.5ml) 5,000 unit Q12 SQ 06/25/17 21:00 06/28/17 09:54 DC 06/28/17 08:21 5,000 UNIT Acetaminophen (Tylenol Tab) 650 mg Q4H PRN PO 06/25/17 17:15 07/25/17 17:14 06/30/17 20:54 650 MG Aspirin (Ecotrin Tab) 81 mg QAM PO 06/26/17 09:00 07/26/17 08:59 07/01/17 08:21 81 MG Budesonide/ Formoterol Fumarate (Symbicort 160/ 4.5 Inh) 2 puffs BID INH 06/25/17 21:00 07/25/17 20:59 07/01/17 08:17 2 PUFFS Docusate Sodium (coLACE CAP) 100 mg BID PO 06/25/17 21:00 07/25/17 20:59 07/01/17 08:19 100 MG Escitalopram Oxalate (Lexapro Tab) 5 mg DAILY PO 06/26/17 09:00 07/26/17 08:59 07/01/17 08:19 5 MG Insulin Glargine (Lantus Solostar Pen) 10 units QPM SC 06/25/17 21:00 07/25/17 20:59 06/30/17 20:54 10 UNITS Levothyroxine Sodium (Synthroid Tab) 50 mcg DAILYBB PO 06/26/17 06:00 07/26/17 05:59 07/01/17 06:12 50 MCG Lorazepam (Ativan Tab) 0.5 mg BID PO 06/25/17 21:00 07/25/17 20:59 07/01/17 08:25 0.5 MG Magnesium Oxide (Mag-Ox Tab) 400 mg QAM PO 06/26/17 09:00 07/26/17 08:59 07/01/17 08:29 400 MG Metoprolol Tartrate (Lopressor Tab) 100 mg BID PO 06/25/17 21:00 07/25/17 20:59 07/01/17 08:29 100 MG Nitroglycerin (Nitrostat Tab) 0.4 mg UD PRN UT 06/25/17 17:15 07/25/17 17:14 06/28/17 07:29 0.4 MG Cholecalciferol (Vitamin D Tab) 1,000 inter.unit QAM PO 06/26/17 09:00 07/26/17 08:59 07/01/17 08:22 1,000 INTER.UNIT Cyanocobalamin (Vitamin B-12 Tab) 1,000 mcg QAM PO 06/26/17 09:00 07/26/17 08:59 07/01/17 08:20 1,000 MCG Diltiazem HCl (Cardizem Cd Cap) 240 mg QAM PO 06/26/17 09:00 07/26/17 08:59 07/01/17 08:23 240 MG Ferrous Sulfate (Feosol Tab) 325 mg QAM PO 06/26/17 09:00 07/26/17 08:59 07/01/17 08:19 325 MG Pantoprazole Sodium (Protonix Tab) 40 mg QAM PO 06/26/17 09:00 07/26/17 08:59 07/01/17 08:19 40 MG Fluticasone Propionate (Flonase Nasal [place]) 2 sprays DAILY NA 06/26/17 09:00 07/26/17 08:59 07/01/17 08:17 2 SPRAYS Albuterol/ Ipratropium (Duoneb) 3 ml QIDR PRN INH 06/25/17 17:15 07/25/17 17:14 06/30/17 19:18 3 ML Furosemide 40 mg/ Syringe 4 ml @ 4 mls/min 1900 ONCE IV 06/25/17 19:00 06/25/17 19:01 DC 06/25/17 19:57 4 MLS/MIN Insulin Aspart (novoLOG ASPART) SLIDING SCALE If C... ACHS SC 06/25/17 21:00 07/25/17 20:59 07/01/17 08:28 1 UNITS Furosemide 40 mg/ Syringe 4 ml @ 4 mls/min ONE ONCE IV 06/26/17 10:30 06/26/17 10:31 DC 06/26/17 11:19 4 MLS/MIN Furosemide (Lasix Tab) 40 mg QAM PO 06/27/17 09:00 06/27/17 19:48 DC 06/27/17 09:14 40 MG Furosemide (Lasix Tab) 40 mg BID17 PO 06/28/17 09:00 06/28/17 22:33 DC 06/28/17 16:04 40 MG Furosemide (Lasix Tab) 40 mg 2015 ONCE PO 06/27/17 20:15 06/27/17 20:16 DC 06/27/17 20:43 40 MG Heparin Sodium/ Dextrose 500 ml @ 20 mls/hr Q24H IV 06/28/17 10:00 07/01/17 09:03 DC 06/30/17 09:26 20 MLS/HR Menthol (Nice Ruby) 1 ruby PRN PRN RUBY 06/28/17 21:30 07/28/17 21:29 06/28/17 21:39 1 RUBY Furosemide (Lasix Tab) 40 mg DAILY PO 06/29/17 09:00 06/29/17 12:05 DC 06/29/17 08:47 40 MG Furosemide (Lasix Tab) 40 mg BID17 PO 06/29/17 17:00 07/27/17 08:59 07/01/17 08:19 40 MG Atorvastatin Calcium (Lipitor Tab) 10 mg QAM PO 06/30/17 09:00 07/30/17 08:59 07/01/17 08:22 10 MG Clopidogrel Bisulfate (plAVix TAB) 75 mg NOW ONCE PO 06/29/17 14:45 06/29/17 14:46 DC 06/29/17 16:41 75 MG Clopidogrel Bisulfate (plAVix TAB) 75 mg QAM PO 06/30/17 09:00 07/30/17 08:59 07/01/17 08:21 75 MG Guaifenesin (Mucinex Contr Rel Tab) 600 mg BID PO 06/29/17 23:15 07/29/17 23:14 07/01/17 08:19 600 MG Guaifenesin (Robitussin Sugar Free Syrup) 200 mg Q6H PRN PO 06/30/17 21:00 07/30/17 20:59 07/01/17 06:12 200 MG (Ana Downs, CIERRA) Objective Vital Signs Date Time Temp Pulse Resp B/P (MAP) Pulse Ox O2 Delivery O2 Flow Rate FiO2 07/01/17 08:00 Room Air 07/01/17 07:58 36.8 60 18 141/71 (94) 96 07/01/17 04:31 Room Air 07/01/17 03:42 36.9 60 17 144/56 (85) 93 Room Air 07/01/17 00:55 Room Air 07/01/17 00:37 36.8 60 20 134/58 (83) 92 Room Air 06/30/17 20:00 Room Air 06/30/17 19:46 37.0 59 16 122/53 (76) 94 Room Air 06/30/17 19:18 65 18 97 Room Air 06/30/17 16:51 36.7 60 20 139/81 (100) 100 Room Air 06/30/17 16:00 Room Air 06/30/17 15:44 80 18 96 Room Air 06/30/17 12:00 Room Air 06/30/17 11:50 36.7 77 20 121/77 (92) 97 Room Air (Ana Downs CRNP) Physical Exam Notes: General: no distress Eyes: normal inspection, PERLL Respiratory: chest non tender, clear to auscultation, normal breath sounds, no respiratory distress, no accessory muscle use Cardiac: irregular rate and rhythm, no rub or gallop, no murmur, +1 pitting edema lower extremities L>R which patient reports is baseline GI/: active bowel sounds, no abd pain or tenderness, soft, non distended Extremities: normal range of motion, normal strength, non tender Neuro/Psych: alert and oriented x 3, normal mood and affect Skin: normal color, dry (Ana Downs CRNP) Laboratory Results Last 24 Hours Test 06/30/17 11:02 06/30/17 16:28 06/30/17 20:06 07/01/17 06:04 Bedside Glucose 239 mg/dl 213 mg/dl 284 mg/dl 159 mg/dl Test 07/01/17 06:46 Activated Partial Thromboplast Time 51.8 SECONDS Partial Thromboplastin Ratio 2.0 Sodium Level 131 mmol/L Potassium Level 4.1 mmol/L Chloride Level 96 mmol/L Carbon Dioxide Level 27 mmol/L Anion Gap 9.0 mmol/L Blood Urea Nitrogen 47 mg/dl Creatinine 2.55 mg/dl Est Creatinine Clear Calc Drug Dose 14.5 ml/min Estimated GFR () 18.8 Estimated GFR (Non- 16.2 BUN/Creatinine Ratio 18.4 Random Glucose 146 mg/dl Calcium Level 8.5 mg/dl (Ana Downs CRNP) Assessment and Plan Ms. Gil is an 87 year old woman here for chest pain Chest Pain, Acute on Chronic Systolic CHF, Type II NSTEMI 06/28, history of CAD with stents, A.fib - consulted cardiology - per their rec patient started on dig and heparin gtt discontinued - on admission chest xray did not show over congestion however BNP was 35,000. 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 kidney function - Echo showed EF 40%, GRade 2 diastolic dysfunction, Severe hypokinesis of inferior, septal base to mid wall, moderate to severe mitral regurgitation and severe pulmonary hypertension with PASP 60-65 mmHg - continue ASA, metoprolol - will defer on anticoagulation to cardiology - apparently patient has discussed this with her credentialing assistant in the past and was told she should only be on ASA due to difficulties managing anticoagulation CKD stage III/IV: nephrology following - Cr stable at 2.55, continue Lasix BID per nephrology - likely needs a daily diuretic given her heart failure, maybe BID on discharge - follows with Dr. Lujan for nephrology in [place] - K normal, Na has been stable 131 and patient is chronically low - has discussed HD with her metal dresser as outpatient, she is open to it, no AV fistula placed yet Dr Collier encouraged her to have fistula placed as outpatient Hyperkalemia - resolved - K is 4 DMII - bsgs ac & hs - continue home lantus 10 units HS - will add carb ration to SS for high daytime sugars COPD - continue Symbicort - continue prn duonebs for sob Anxiety - continue Lexapro Urinary Frequency - U/A, culture - no infection DNR scds Dispo - return to personal care when medically able per PT/OT recs (Ana Downs, CIERRA) Supervising Note Dr. Dominguez I performed a history and physical examination on the patient. I reviewed above note and agree with it. I discussed plan with APC and patient. During my face to face encounter with the patient, I answered all of the patient's questions. D/W cariodlogy. Will stop IV heparin now. (Stone Dominguez M.D.)
--- NOTE | 2017-07-01 11:52 | Nephrology Progress Note ---
Nephrology Progress Note Date of Service Jul 01, 2017. Chief Complaint Acute on chronic kidney injury Subjective Ms. Gil was seen & examined in the PCU this morning. She currently denies angina or palpitations. She is tolerating IV heparin without overt bleeding. Her weight has dropped 8 kg since admission. Her breathing and LE swelling are both subjectively improved. Review of Systems Constitutional: No fever Cardiovascular: No chest pain Respiratory: No dyspnea at rest Abdomen: No pain, No nausea, No vomiting Extremities: No leg edema A complete review of systems was performed. Pertinent positives are noted above. All other systems are negative. Vital Signs Last 8 Hrs Date Time Temp Pulse Resp B/P (MAP) Pulse Ox O2 Delivery O2 Flow Rate FiO2 07/01/17 08:00 Room Air 07/01/17 07:58 36.8 60 18 141/71 (94) 96 07/01/17 04:31 Room Air Last Recorded Weight Weight (Kilograms): 71.600 Physical Exam General Appearance: no apparent distress Head: normocephalic, atraumatic Eyes: PERRL Neck: supple Respiratory/Chest: + crackles Cardiovascular: + irregularly irregular Abdomen/GI: normal bowel sounds, non tender, soft Extremities/Musculoskelatal: no pedal edema Neurologic/Psych: alert, oriented x 3 Family History Omitted secondary to age Social History Smokeless Tobacco Use: No Alcohol Use: none Drug Use: none Marital Status: Housing Status: assisted living ([facility]) Occupation: retired Laboratory Results Past 24 Hours 07/01/17 06:46 Test 06/30/17 16:28 06/30/17 20:06 07/01/17 06:04 07/01/17 06:46 Bedside Glucose 213 mg/dl (70-90) 284 mg/dl (70-90) 159 mg/dl (70-90) Activated Partial Thromboplast Time 51.8 SECONDS (21.0-31.0) Partial Thromboplastin Ratio 2.0 Anion Gap 9.0 mmol/L (3-11) Est Creatinine Clear Calc Drug Dose 14.5 ml/min Estimated GFR () 18.8 Estimated GFR (Non- 16.2 BUN/Creatinine Ratio 18.4 (10-20) Calcium Level 8.5 mg/dl (8.5-10.1) Allergies Coded Allergies: Fenofibrate (Verified Allergy, Intermediate, rash, 2/13/18) Amoxicillin (Verified Allergy, Unknown, UNKNOWN, 05/07/17) Calcium Carbonate (Verified Allergy, Unknown, ., 06/27/17) Ciprofloxacin (Verified Allergy, Unknown, ., 06/27/17) Diphenhydramine (Verified Allergy, Unknown, ., 06/27/17) Fexofenadine (Verified Allergy, Unknown, UNKNOWN, 05/07/17) Irbesartan (Verified Allergy, Unknown, UNKNOWN, 05/07/17) Lidocaine (Verified Allergy, Unknown, ., 06/27/17) Niacin (Verified Allergy, Unknown, RASH, 05/07/17) Nystatin (Verified Allergy, Unknown, ., 06/27/17) Penicillins (Verified Allergy, Unknown, UNKNOWN, 05/07/17) Sulfa Antibiotics (Verified Allergy, Unknown, UNKNOWN, 05/07/17) Flumazenil (Verified Adverse Reaction, Intermediate, DELIRIUM, 06/27/17) anxious, increased heart rate, increased blood pressure Tomato (Verified Adverse Reaction, Unknown, GI SYMPTOMS, 06/27/17) Medications Current Inpatient Medications Medications (Trade) Dose Ordered Sig/Leslee Route Start Time Stop Time Status Last Admin Dose Admin Acetaminophen (Tylenol Tab) 650 mg Q4H PRN PO 06/25/17 17:15 07/25/17 17:14 06/30/17 20:54 650 MG Aspirin (Ecotrin Tab) 81 mg QAM PO 06/26/17 09:00 07/26/17 08:59 07/01/17 08:21 81 MG Budesonide/ Formoterol Fumarate (Symbicort 160/ 4.5 Inh) 2 puffs BID INH 06/25/17 21:00 07/25/17 20:59 07/01/17 08:17 2 PUFFS Docusate Sodium (coLACE CAP) 100 mg BID PO 06/25/17 21:00 07/25/17 20:59 07/01/17 08:19 100 MG Escitalopram Oxalate (Lexapro Tab) 5 mg DAILY PO 06/26/17 09:00 07/26/17 08:59 07/01/17 08:19 5 MG Insulin Glargine (Lantus Solostar Pen) 10 units QPM SC 06/25/17 21:00 07/25/17 20:59 06/30/17 20:54 10 UNITS Levothyroxine Sodium (Synthroid Tab) 50 mcg DAILYBB PO 06/26/17 06:00 07/26/17 05:59 07/01/17 06:12 50 MCG Lorazepam (Ativan Tab) 0.5 mg BID PO 06/25/17 21:00 07/25/17 20:59 07/01/17 08:25 0.5 MG Magnesium Oxide (Mag-Ox Tab) 400 mg QAM PO 06/26/17 09:00 07/26/17 08:59 07/01/17 08:29 400 MG Metoprolol Tartrate (Lopressor Tab) 100 mg BID PO 06/25/17 21:00 07/25/17 20:59 07/01/17 08:29 100 MG Nitroglycerin (Nitrostat Tab) 0.4 mg UD PRN UT 06/25/17 17:15 07/25/17 17:14 06/28/17 07:29 0.4 MG Cholecalciferol (Vitamin D Tab) 1,000 inter.unit QAM PO 06/26/17 09:00 07/26/17 08:59 07/01/17 08:22 1,000 INTER.UNIT Cyanocobalamin (Vitamin B-12 Tab) 1,000 mcg QAM PO 06/26/17 09:00 07/26/17 08:59 07/01/17 08:20 1,000 MCG Diltiazem HCl (Cardizem Cd Cap) 240 mg QAM PO 06/26/17 09:00 07/26/17 08:59 07/01/17 08:23 240 MG Ferrous Sulfate (Feosol Tab) 325 mg QAM PO 06/26/17 09:00 07/26/17 08:59 07/01/17 08:19 325 MG Pantoprazole Sodium (Protonix Tab) 40 mg QAM PO 06/26/17 09:00 07/26/17 08:59 07/01/17 08:19 40 MG Fluticasone Propionate (Flonase Nasal [place]) 2 sprays DAILY NA 06/26/17 09:00 07/26/17 08:59 07/01/17 08:17 2 SPRAYS Albuterol/ Ipratropium (Duoneb) 3 ml QIDR PRN INH 06/25/17 17:15 07/25/17 17:14 06/30/17 19:18 3 ML Insulin Aspart (novoLOG ASPART) SLIDING SCALE If C... ACHS SC 06/25/17 21:00 07/25/17 20:59 07/01/17 08:28 1 UNITS Morphine Sulfate (MoRPHine SULFATE INJ) 2 mg Q4H PRN IV 06/25/17 17:30 07/09/17 17:29 Glucose (Glucose 40% Gel) 15-30 GRAMS 15 GRAMS... UD PRN PO 06/25/17 19:00 07/25/17 18:59 Glucose (Glucose Chew Tab) 4-8 Tablets 4 Tabl... UD PRN PO 06/25/17 19:00 07/25/17 18:59 Dextrose (Dextrose 50% 50ML Syringe) 25-50ML OF 50% DW IV FOR... UD PRN IV 06/25/17 19:00 07/25/17 18:59 Glucagon (Glucagon Inj) 1 mg UD PRN SQ 06/25/17 19:00 07/25/17 18:59 Miscellaneous (Iv Fluids Completed) 1 ea PRN PRN N/A 06/25/17 21:00 06/25/18 20:59 Menthol (Nice Ruby) 1 ruby PRN PRN RUBY 06/28/17 21:30 07/28/17 21:29 06/28/17 21:39 1 RUBY Furosemide (Lasix Tab) 40 mg BID17 PO 06/29/17 17:00 07/27/17 08:59 07/01/17 08:19 40 MG Atorvastatin Calcium (Lipitor Tab) 10 mg QAM PO 06/30/17 09:00 07/30/17 08:59 07/01/17 08:22 10 MG Clopidogrel Bisulfate (plAVix TAB) 75 mg QAM PO 06/30/17 09:00 07/30/17 08:59 07/01/17 08:21 75 MG Guaifenesin (Mucinex Contr Rel Tab) 600 mg BID PO 06/29/17 23:15 07/29/17 23:14 07/01/17 08:19 600 MG Guaifenesin (Robitussin Sugar Free Syrup) 200 mg Q6H PRN PO 06/30/17 21:00 07/30/17 20:59 07/01/17 06:12 200 MG Digoxin (Lanoxin Tab) 0.125 mg MoWeFr@1600 PO 07/03/17 16:00 08/02/17 15:59 Impression (1) Acute exacerbation of CHF (congestive heart failure) (2) Acute kidney injury (3) CKD (chronic kidney disease) (4) DM (diabetes mellitus) (5) Atrial fibrillation (6) Bladder outflow obstruction (7) Hypertension (8) Severe mitral regurgitation (9) Moderate to severe pulmonary hypertension Ms. Gil has CKD stage IV (advanced impairment). Baseline creatinine has been ~ 2.0. Renal impairment is on the basis of diabetic nephropathy and impaired perfusion due to valvular heart disease. Her primary Light Bulb Replacer has been Dr. Edmund Urias in [place], [place]. Urine sediment has been benign. Urinary protein has been low grade. Renal US this admission was negative for obstruction but PVR was > 400 cc. This improved following urinary straight catheterization PMH is ASCVD, CKD, HTN, AODM and atrial fibrillation/SSS with diastolic CHF. TTE this hospitalization revealed moderate to severe MR and moderate TR with severe pulmonary hypertension (PASP 60-65 mmHg). Recommendations CHRONIC KIDNEY DISEASE: -- Creatinine has stabilized at ~ 2.5. Electrolyte balance is acceptable at this time -- Patient will require AVF creation as outpatient. This will be coordinated by her primary Light Bulb Replacer HYPONATREMIA: -- Mild, asymptomatic. Clinically euvolemic to mildly volume expanded -- Hyponatremia in part related to poor perfusion associated with valvular heart disease. Uosm 330 -- Continue Furosemide 40 mg po BID URINARY RETENTION: -- Resolved. Patient now voiding on her own. Will need outpatient Urology follow up (she is established w/ [facility]) -- Monitor UO CV: -- Atrial fibrillation. HR is controlled. BP is acceptable. Troponin is trending downward -- TTE this hospitalization revealed moderate to severe MR and moderate TR with severe pulmonary hypertension (PASP 60-65 mmHg).
[2017-07-01] MEDS: ALBUT/IPRATROP 3MG/0.5MG NEB 3 ML VIAL INH PRN (19:37)
[2017-07-01] MEDS: INSULIN GLARGINE SOLOSTAR 100 UNITS/ML 3 ML PEN SC SCH (21:13)
[2017-07-01] MEDS: ACETAMINOPHEN 325 MG TAB PO PRN (21:13)
[2017-07-02] MEDS: GUAIFENESIN SUGAR FREE 200 MG/10 ML UDC PO PRN ×2 (00:14→09:48)
[2017-07-02 03:53] VITALS: BP 148/54; PULSE 60; TEMP 36.7; O2SAT 93
[2017-07-02] MEDS: LEVOTHYROXINE 50 MCG TAB PO SCH (04:56)
[2017-07-02 07:33] LABS: HEMATOCRIT 34.2 % (37-47); HEMOGLOBIN 11.1 g/dL (12.0-16.0); MEAN CELL VOLUME 88.4 fL (80-100); MEAN CORPUSCULAR HEMOGLOBIN 28.7 pg (25-34); MEAN CORPUSCULAR HGB CONC 32.5 g/dl (32-36); MEAN PLATELET VOLUME 8.5 fL (7.4-10.4); PLATELET COUNT 219 K/uL (130-400); RED CELL DISTRIBUTION WIDTH CV 13.8 % (11.5-14.5); RED CELL DISTRIBUTION WIDTH SD 44.7 fL (36.4-46.3); WHITE BLOOD COUNT 6.54 K/uL (4.8-10.8)
[2017-07-02] MEDS: INSULIN ASPART 100 UNITS/ML 3 ML PEN SC SCH ×3 (07:39→16:15)
[2017-07-02] MEDS: CHOLECALCIFEROL 1000 INTER.UNIT TAB PO SCH (07:40)
[2017-07-02] MEDS: ATORVASTATIN 10 MG TAB PO SCH (07:40)
[2017-07-02] MEDS: CLOPIDOGREL BISULFATE 75 MG TAB PO SCH (07:40)
[2017-07-02] MEDS: FERROUS SULFATE 325 MG TAB PO SCH (07:41)
[2017-07-02] MEDS: ESCITALOPRAM OXALATE 10 MG TAB PO SCH (07:41)
[2017-07-02] MEDS: CYANOCOBALAMIN 500 MCG TAB (VIT B-12) PO SCH (07:41)
[2017-07-02] MEDS: METOPROLOL TARTRATE 100 MG TAB PO SCH (07:41)
[2017-07-02] MEDS: BUDESONIDE/FORMOTEROL FUMARATE 160/4.5 60 PUFFS/INHALER INH SCH (07:41)
[2017-07-02] MEDS: PANTOprazole SOD 40 MG TAB PO SCH (07:42)
[2017-07-02] MEDS: ASPIRIN 81 MG ECTAB PO SCH (07:42)
[2017-07-02] MEDS: MAGNESIUM OXIDE 400 MG TAB PO SCH (07:42)
[2017-07-02] MEDS: FUROSEMIDE 40 MG TAB PO SCH (07:42)
[2017-07-02] MEDS: FLUTICASONE PROPIONATE NA SPR 16 GM BTL SCH (07:43)
[2017-07-02] MEDS: DOCUSATE SODIUM 100 MG CAP PO SCH (07:43)
[2017-07-02] MEDS: LORAZEPAM 0.5 MG TAB PO SCH (07:46)
[2017-07-02 07:49] LABS: PTT PATIENT 27.7 SECONDS (21.0-31.0)
[2017-07-02 08:04] LABS: CALCIUM 8.7 mg/dl (8.5-10.1); CREATININE 2.39 mg/dl (0.60-1.20); POTASSIUM 4.3 mmol/L (3.5-5.1)
[2017-07-02 08:15] VITALS: BP 151/69; PULSE 84; TEMP 36.6; O2SAT 99
[2017-07-02] MEDS: GUAIFENESIN 600 MG TABCR PO SCH (08:57)
[2017-07-02] MEDS: DILTIAZEM HCL 240 MG CAPCR PO SCH (08:57)
--- NOTE | 2017-07-02 09:32 | DIAGNOSTIC IMAGING REPORT ---
CHEST 2 VIEWS ROUTINE CLINICAL HISTORY: 87 years-old Female presenting with cough. TECHNIQUE: PA and lateral views of the chest were obtained. COMPARISON: 06/25/2017. FINDINGS: Left subclavian pacer with leads to the right atrium and right ventricular apex. Median sternotomy wires and bypass graft rings. Atherosclerosis of the aortic arch. Cardiac silhouette mildly enlarged, unchanged. Decreased prominence of pulmonary vasculature. No focal opacity. No large effusion or pneumothorax. The previously suggested right apical paramediastinal opacity likely represented prominent vasculature or secondary to slight NATHEN rotation on the prior film. Degenerative changes of the thoracic spine. Cholecystectomy clips noted. IMPRESSION: 1. Cardiomegaly. No other convincing evidence of acute cardiopulmonary disease. Electronically signed by: Deion Hernandez M.D. 07/02/2017 9:31 AM Dictated Date/Time: 07/02/2017 9:29 AM
--- NOTE | 2017-07-02 10:30 | Nephrology Progress Note ---
Nephrology Progress Note Date of Service Jul 02, 2017. Chief Complaint Acute on chronic kidney injury Subjective Ms. Gil was seen & examined in the PCU this morning. She currently denies angina or palpitations. IV heparin has been stopped. Ms. Gil's weight has dropped 8 kg since admission. Her breathing and LE swelling are both subjectively improved. She is voiding on her own without difficulty. Her only complaint this am is a cough productive of ray sputum. Review of Systems Constitutional: No fever Cardiovascular: No chest pain Respiratory: + productive cough Abdomen: No pain, No nausea, No vomiting Extremities: No leg edema A complete review of systems was performed. Pertinent positives are noted above. All other systems are negative. Vital Signs Last 8 Hrs Date Time Temp Pulse Resp B/P (MAP) Pulse Ox O2 Delivery O2 Flow Rate FiO2 07/02/17 08:15 36.6 84 18 151/69 (96) 99 07/02/17 08:00 Room Air 07/02/17 04:00 Room Air 07/02/17 03:53 36.7 60 16 148/54 (85) 93 Room Air Last Recorded Weight Weight (Kilograms): 70.600 Physical Exam General Appearance: no apparent distress Head: normocephalic, atraumatic Eyes: PERRL, EOMI Neck: no adenopathy Respiratory/Chest: lungs clear, no respiratory distress Cardiovascular: + irregularly irregular Abdomen/GI: normal bowel sounds, non tender, soft Extremities/Musculoskelatal: + pertinent finding (trace pretibial edema) Neurologic/Psych: alert, oriented x 3 Family History Omitted secondary to age Social History Smokeless Tobacco Use: No Alcohol Use: none Drug Use: none Marital Status: Housing Status: assisted living ([facility]) Occupation: retired Laboratory Results Past 24 Hours 07/02/17 07:17 07/02/17 07:17 Test 07/01/17 11:31 07/01/17 16:26 07/01/17 20:26 07/02/17 06:57 Bedside Glucose 242 mg/dl (70-90) 102 mg/dl (70-90) 202 mg/dl (70-90) 113 mg/dl (70-90) Test 07/02/17 07:17 Red Blood Count 3.87 M/uL (4.2-5.4) Mean Corpuscular Volume 88.4 fL (80-100) Mean Corpuscular Hemoglobin 28.7 pg (25-34) Mean Corpuscular Hemoglobin Concent 32.5 g/dl (32-36) RDW Standard Deviation 44.7 fL (36.4-46.3) RDW Coefficient of Variation 13.8 % (11.5-14.5) Mean Platelet Volume 8.5 fL (7.4-10.4) Activated Partial Thromboplast Time 27.7 SECONDS (21.0-31.0) Partial Thromboplastin Ratio 1.1 Anion Gap 8.0 mmol/L (3-11) Est Creatinine Clear Calc Drug Dose 15.3 ml/min Estimated GFR () 20.3 Estimated GFR (Non- 17.5 BUN/Creatinine Ratio 18.7 (10-20) Calcium Level 8.7 mg/dl (8.5-10.1) Allergies Coded Allergies: Fenofibrate (Verified Allergy, Intermediate, rash, 05/07/17) Amoxicillin (Verified Allergy, Unknown, UNKNOWN, 05/07/17) Calcium Carbonate (Verified Allergy, Unknown, ., 06/27/17) Ciprofloxacin (Verified Allergy, Unknown, ., 06/27/17) Diphenhydramine (Verified Allergy, Unknown, ., 06/27/17) Fexofenadine (Verified Allergy, Unknown, UNKNOWN, 05/07/17) Irbesartan (Verified Allergy, Unknown, UNKNOWN, 05/07/17) Lidocaine (Verified Allergy, Unknown, ., 06/27/17) Niacin (Verified Allergy, Unknown, RASH, 05/07/17) Nystatin (Verified Allergy, Unknown, ., 06/27/17) Penicillins (Verified Allergy, Unknown, UNKNOWN, 05/07/17) Sulfa Antibiotics (Verified Allergy, Unknown, UNKNOWN, 05/07/17) Flumazenil (Verified Adverse Reaction, Intermediate, DELIRIUM, 06/27/17) anxious, increased heart rate, increased blood pressure Tomato (Verified Adverse Reaction, Unknown, GI SYMPTOMS, 06/27/17) Medications Current Inpatient Medications Medications (Trade) Dose Ordered Sig/Leslee Route Start Time Stop Time Status Last Admin Dose Admin Acetaminophen (Tylenol Tab) 650 mg Q4H PRN PO 06/25/17 17:15 07/25/17 17:14 07/01/17 21:13 650 MG Aspirin (Ecotrin Tab) 81 mg QAM PO 06/26/17 09:00 07/26/17 08:59 07/02/17 07:42 81 MG Budesonide/ Formoterol Fumarate (Symbicort 160/ 4.5 Inh) 2 puffs BID INH 06/25/17 21:00 07/25/17 20:59 07/02/17 07:41 2 PUFFS Docusate Sodium (coLACE CAP) 100 mg BID PO 06/25/17 21:00 07/25/17 20:59 07/02/17 07:43 100 MG Escitalopram Oxalate (Lexapro Tab) 5 mg DAILY PO 06/26/17 09:00 07/26/17 08:59 07/02/17 07:41 5 MG Insulin Glargine (Lantus Solostar Pen) 10 units QPM SC 06/25/17 21:00 07/25/17 20:59 07/01/17 21:13 10 UNITS Levothyroxine Sodium (Synthroid Tab) 50 mcg DAILYBB PO 06/26/17 06:00 07/26/17 05:59 07/02/17 04:56 50 MCG Lorazepam (Ativan Tab) 0.5 mg BID PO 06/25/17 21:00 07/25/17 20:59 07/02/17 07:46 0.5 MG Magnesium Oxide (Mag-Ox Tab) 400 mg QAM PO 06/26/17 09:00 07/26/17 08:59 07/02/17 07:42 400 MG Metoprolol Tartrate (Lopressor Tab) 100 mg BID PO 06/25/17 21:00 07/25/17 20:59 07/02/17 07:41 100 MG Nitroglycerin (Nitrostat Tab) 0.4 mg UD PRN UT 06/25/17 17:15 07/25/17 17:14 06/28/17 07:29 0.4 MG Cholecalciferol (Vitamin D Tab) 1,000 inter.unit QAM PO 06/26/17 09:00 07/26/17 08:59 07/02/17 07:40 1,000 INTER.UNIT Cyanocobalamin (Vitamin B-12 Tab) 1,000 mcg QAM PO 06/26/17 09:00 5/4/18 08:59 07/02/17 07:41 1,000 MCG Diltiazem HCl (Cardizem Cd Cap) 240 mg QAM PO 06/26/17 09:00 07/26/17 08:59 07/02/17 08:57 240 MG Ferrous Sulfate (Feosol Tab) 325 mg QAM PO 06/26/17 09:00 07/26/17 08:59 07/02/17 07:41 325 MG Pantoprazole Sodium (Protonix Tab) 40 mg QAM PO 06/26/17 09:00 07/26/17 08:59 07/02/17 07:42 40 MG Fluticasone Propionate (Flonase Nasal [place]) 2 sprays DAILY NA 06/26/17 09:00 07/26/17 08:59 07/02/17 07:43 2 SPRAYS Albuterol/ Ipratropium (Duoneb) 3 ml QIDR PRN INH 06/25/17 17:15 07/25/17 17:14 07/01/17 19:37 3 ML Insulin Aspart (novoLOG ASPART) SLIDING SCALE If C... ACHS SC 06/25/17 21:00 07/25/17 20:59 07/01/17 21:12 3 UNITS Morphine Sulfate (MoRPHine SULFATE INJ) 2 mg Q4H PRN IV 06/25/17 17:30 07/09/17 17:29 Glucose (Glucose 40% Gel) 15-30 GRAMS 15 GRAMS... UD PRN PO 06/25/17 19:00 07/25/17 18:59 Glucose (Glucose Chew Tab) 4-8 Tablets 4 Tabl... UD PRN PO 06/25/17 19:00 07/25/17 18:59 Dextrose (Dextrose 50% 50ML Syringe) 25-50ML OF 50% DW IV FOR... UD PRN IV 06/25/17 19:00 07/25/17 18:59 Glucagon (Glucagon Inj) 1 mg UD PRN SQ 06/25/17 19:00 07/25/17 18:59 Miscellaneous (Iv Fluids Completed) 1 ea PRN PRN N/A 06/25/17 21:00 06/25/18 20:59 Menthol (Nice Ruby) 1 ruby PRN PRN RUBY 06/28/17 21:30 07/28/17 21:29 06/28/17 21:39 1 RUBY Furosemide (Lasix Tab) 40 mg BID17 PO 06/29/17 17:00 07/27/17 08:59 07/02/17 07:42 40 MG Atorvastatin Calcium (Lipitor Tab) 10 mg QAM PO 06/30/17 09:00 07/30/17 08:59 07/02/17 07:40 10 MG Clopidogrel Bisulfate (plAVix TAB) 75 mg QAM PO 06/30/17 09:00 07/30/17 08:59 07/02/17 07:40 75 MG Guaifenesin (Mucinex Contr Rel Tab) 600 mg BID PO 06/29/17 23:15 07/29/17 23:14 07/02/17 08:57 600 MG Guaifenesin (Robitussin Sugar Free Syrup) 200 mg Q6H PRN PO 06/30/17 21:00 07/30/17 20:59 07/02/17 09:48 200 MG Digoxin (Lanoxin Tab) 0.125 mg MoWeFr@1600 PO 07/03/17 16:00 08/02/17 15:59 Impression (1) Acute exacerbation of CHF (congestive heart failure) (2) Acute kidney injury (3) CKD (chronic kidney disease) (4) DM (diabetes mellitus) (5) Atrial fibrillation (6) Bladder outflow obstruction (7) Hypertension (8) Severe mitral regurgitation (9) Moderate to severe pulmonary hypertension Ms. Gil has CKD stage IV (advanced impairment). Baseline creatinine has been 2.0 - 2.5. Renal impairment is on the basis of diabetic nephropathy and impaired perfusion due to valvular heart disease. Her primary Chief Of Service has been Dr. Edmund Urias in [place], [place]. Urine sediment has been benign. Urinary protein has been low grade. Renal US this admission was negative for obstruction but PVR was > 400 cc. This improved following urinary straight catheterization PMH is ASCVD, CKD, HTN, AODM and atrial fibrillation/SSS with diastolic CHF. TTE this hospitalization revealed moderate to severe MR and moderate TR with severe pulmonary hypertension (PASP 60-65 mmHg). Recommendations CHRONIC KIDNEY DISEASE: -- Worsening kidney function in part related to valvular heart disease, poor renal perfusion and need for diuretic therapy -- Creatinine has stabilized at ~ 2.5. Electrolyte balance is acceptable at this time -- Patient will require AVF creation as outpatient. This will be coordinated by her primary Chief Of Service HYPONATREMIA: -- Mild, asymptomatic. Clinically euvolemic to mildly volume expanded -- Hyponatremia in part related to poor perfusion associated with valvular heart disease. Uosm 330 -- Continue Furosemide 40 mg po BID URINARY RETENTION: -- Resolved. Patient now voiding on her own. Will need outpatient Urology follow up (she is established w/ [facility]) -- Monitor UO CV: -- Atrial fibrillation. Management as per Cardiology -- TTE this hospitalization revealed moderate to severe MR and moderate TR with severe pulmonary hypertension (PASP 60-65 mmHg). PULM: -- Cough productive of ray sputum. Patient is afebrile w/ normal WBC # and clear lung villalobos. CXR film today was negative for infiltrate. Primary service has provided expectorant
[2017-07-02 12:08] VITALS: BP 131/63; PULSE 76; TEMP 36.8; O2SAT 99
[2017-07-02] MEDS ORDERED: LNX125 PO ×2 (14:11→16:49)
[2017-07-02] MEDS ORDERED: LSX40 PO ×2 (14:11→16:49)
[2017-07-02] MEDS ORDERED: LPT10 PO ×2 (14:11→16:49)
[2017-07-02] MEDS ORDERED: PLV75 PO ×2 (14:11→16:49)
--- NOTE | 2017-07-02 14:28 | Discharge Instructions ---
Discharge Instructions Date of Service Jul 02, 2017. Admission Reason for Admission: Chest Pain Discharge Discharge Diagnosis / Problem: Congestive Heart failure Discharge Goals Goal(s): Improve disease control Activity Recommendations Activity Limitations: resume your previous activity Exercise/Sports Limitations: gradually increase as tolerated . Instructions / Follow-Up Instructions / Follow-Up Please follow up with your primary care provider this week. Please follow up with urology, cardiology and nephrology within about a week During your admission you were diagnosed with a Type II Non ST Elevation Myocardial Infarction (NSTEMI) which is defined as a Myocardial Infarction due to increased oxygen demand or decreased oxygen supply. Because of this it is recommended that you go home with aspirin, plavix and a statin to help prevent future cardiovascular events, which I have given you prescriptions for. Cardiology has also started you on digoxin to help to control your atrial fibrillation. Call your Primary Care doctor if any of the following symptoms or problems start or get worse: * Shortness of breath or difficulty breathing * Wake up at night short of breath * Chest pain * Cough * Swelling of your hands, feet, or legs * More fatigued or tired with your normal activity * Palpitations - sudden fast heart beats WEIGHT * Weigh yourself every morning after using the bathroom. * Use the same scale. * Wear the same amount of clothing. * Write your weight down on a chart. * Call your Primary Care doctor if you gain more than 2-3 pounds in 1-2 days. MEDICATIONS * Use this discharge instruction sheet for medication instructions. * Take your medications at the time your doctor ordered. * Do not skip a dose of your medicines. * If you miss a dose of medicine, take it as soon as possible, but DO NOT DOUBLE A DOSE. * Read your medicine information when you get home. * Know all of the side effects of your medicine. If in doubt, ask your pharmacist * Call your Primary Care doctor's office if you have any side effects. * Be sure all of your doctors know what medicine and herbs you take (including cold, flu, and herbal medicine). Take the following with you to your follow-up doctor appointments: * Weight Chart * Medication List * List of questions Do not drink excessive alcohol, beer or wine. Current Hospital Diet Patient's current hospital diet: AHA Diet (Heart Healthy), Diabetes Type 2 Diet Discharge Diet Recommended Diet: Diabetes Type 2 Diet Procedures Procedures Performed: Chest xray Renal US Pending Studies Studies pending at discharge: no Laboratory Results Hemoglobin A1c Test 06/04/17 08:49 Range/Units Estimated Average Glucose 166 mg/dl Hemoglobin A1c 7.4 H 4.5-5.6 % Medical Emergencies . Who to Call and When: Call 911 or go to the Emergency Room if: * If at any time you feel your situation is an emergency * You have tightness or pain in your chest that does not go away with rest or Nitroglycerin * You are very short of breath even with rest . Non-Emergent Contact Non-Emergency issues call your: Primary Care Provider Call Non-Emergent contact if: you have any medication questions . . "Provider Documentation" section prepared by Ana Downs. .
--- NOTE | 2017-07-02 14:56 | Discharge Summary ---
Discharge Summary Date of Service Jul 02, 2017. Discharge Summary Admission Date: Jun 26, 2017 at 15:18 Discharge Date: Jul 02, 2017 Discharge Disposition: Home Principal Diagnosis: Acute on chronic systolic CHF Problems/Secondary Diagnoses: CKD stage III/IV, Hyperkalemia, DMII, COPD, Anxiety, Urinary Frequency Procedures: [~ rep ct add3]] CHEST 2 VIEWS ROUTINE CLINICAL HISTORY: 87 years-old Female presenting with cough. TECHNIQUE: PA and lateral views of the chest were obtained. COMPARISON: 06/25/2017. FINDINGS: Left subclavian pacer with leads to the right atrium and right ventricular apex. Median sternotomy wires and bypass graft rings. Atherosclerosis of the aortic arch. Cardiac silhouette mildly enlarged, unchanged. Decreased prominence of pulmonary vasculature. No focal opacity. No large effusion or pneumothorax. The previously suggested right apical paramediastinal opacity likely represented prominent vasculature or secondary to slight SYRIAN rotation on the prior film. Degenerative changes of the thoracic spine. Cholecystectomy clips noted. IMPRESSION: 1. Cardiomegaly. No other convincing evidence of acute cardiopulmonary disease. Electronically signed by: Deion Hernandez M.D. 07/02/2017 9:31 AM RENAL ULTRASOUND CLINICAL HISTORY: Acute kidney injury. COMPARISON STUDY: CT of the abdomen and pelvis May 02, 2017. TECHNIQUE: Sonography of the kidneys and the urinary bladder was performed. FINDINGS: This exam is moderately compromised by suboptimal penetration. There is no hydronephrosis. The right kidney measures 9.1 cm in maximal dimension and the left measures 7.3 cm. There is marked left renal atrophy. The right kidney is slightly echogenic. There is a 7 mm right renal cyst. Prevoid volume of the bladder was 686 cc and post void volume was 427 cc. IMPRESSION: 1. No hydronephrosis. 2. Marked left renal atrophy. 3. Postvoid residual of 427 cc within the bladder. Electronically signed by: Ramon Bradshaw M.D. 06/26/2017 2:19 PM CHEST ONE VIEW PORTABLE CLINICAL HISTORY: Atypical chest pain COMPARISON STUDY: April 2017 FINDINGS: The heart is mildly enlarged. There are postsurgical changes of a midline sternotomy. As a left subclavian dual-chamber central venous pacemaker. There is mild chronic interstitial thickening. There is no lobar consolidation. There is no overt failure. There are no pleural effusions.[ A right medial apical opacity, likely represents a summation with vascular markings. No mass was visualized in this location on an October 2016 CT scan. IMPRESSION: 1. Mild cardiomegaly 2. No evidence of failure. No evidence of focal pulmonary consolidation 3. Right apical opacity, likely representing a summation Electronically signed by: Florian Lua M.D. 06/25/2017 2:37 PM Consultations: Dr. Collier from nephrology Dr. Hillman from cardiology Medication Reconciliation New Medications: Atorvastatin (Lipitor) 10 Mg Tab 10 MG PO QAM for 30 Days, #30 TAB Clopidogrel Bisulfate (Clopidogrel) 75 Mg Tab 75 MG PO QAM for 30 Days, #30 TAB Digoxin (Digoxin) 0.125 Mg Tab 0.125 MG PO MoWeFr@1600 for 30 Days, #30 TAB Furosemide (Furosemide) 40 Mg Tab 40 MG PO BID17 for 30 Days, #30 TAB Continued Medications: Albuterol Sulf (Albuterol Sulfate) 2.5 Mg/0.5 Ml Nebu 2.5 MG NEB Q4H WHILE AWAKE Aspirin (Aspirin Ec) 81 Mg Tab 81 MG PO QAM Budesonide/Formoterol Fumarate (Symbicort 160/4.5 Inhaler ) Aero 2 PUFFS INH BID Cholecalciferol (Vitamin D3) 1,000 Unit Cap 1000 INTER.UNIT PO QAM Cranberry (Vaccinium Macrocarp (Cranberry) 500 Mg Cap 1000 MG PO BID Cyanocobalamin (Vitamin B12) 1,000 Mcg Tab 1000 MCG PO QAM Diltiazem Hcl Extended Release (Diltiazem Hcl) 240 Mg Cap 240 MG PO QAM Docusate Sodium (Docusate Sodium) 100 Mg Cap 100 MG PO BID Escitalopram (Lexapro) 10 Mg Tab 5 MG PO DAILY 1/2 TABLET DOSAGE Ferrous Sulfate (Kp Ferrous Sulfate) 325 Mg Tab 325 MG PO QAM Insulin Glargine (Lantus Solostar) 100 Unit/Ml Inj 20 UNITS SC QAM Insulin Glargine (Lantus Solostar) 100 Unit/Ml Inj 10 UNITS SC QPM Lansoprazole (Prevacid) 30 Mg Capcr 30 MG PO DAILY Levothyroxine Sodium (Levothyroxine Sodium) 50 Mcg Tab 50 MCG PO QAM Loratadine (Claritin) 10 Mg Cap 10 MG PO QAM Lorazepam (Ativan) 0.5 Mg Tab 0.5 MG PO BID Magnesium Oxide (Mag-Ox) 400 Mg Tab 400 MG PO QAM Metoprolol Tartrate (Lopressor) (Lopressor) 100 Mg Tab 100 MG PO BID Mometasone Furoate (Nasal) (Mometasone Furoate) 50 Mcg/Act Spr 2 SPRAYS NA DAILY Nitroglycerin (Nitrostat) 0.4 Mg Sub 0.4 MG UT UD PRN for Chest Pain PLACE ONE TABLET UNDER THE TONGUE EVERY 5 MINUTES FOR UP TO 3 DOSES IF NEEDED FOR CHEST PAIN Discontinued Medications: Furosemide (Furosemide) 40 Mg Tab 40 MG PO QAM Discharge Exam ROS Constitutional: no chills, aches, sweats or fever Respiratory: no sob, sputum, or wheezing; she does have a productive cough Cardiac: no chest pain, palpitations, edema, orthopnea or lightheadedness GI: no abdominal pain, nausea, vomiting, diarrhea or constipation : no dysuria or hesitancy Extremities: no joint pain or weakness Skin: no rash All other systems reviewed and negative General: no distress Eyes: normal inspection, PERLL Respiratory: chest non tender, clear to auscultation, normal breath sounds, no respiratory distress, no accessory muscle use Cardiac: regular rate and rhythm, no rub or gallop, no murmur, no edema, no jvd GI/: active bowel sounds, no abd pain or tenderness, soft, non distended Extremities: normal range of motion, normal strength, non tender Neuro/Psych: alert and oriented x 3, normal mood and affect Skin: normal color, dry Hospital Course Ms. Gil presented to the ED for sob of about three weeks. She had chest pain upon returning from getting up to the bathroom with sharp pain in the center of her chest that radiated to her neck. She felt too sick to eat lunch after her appt with her wind turbine performance engineer. She continued to feel worse and was unable to walk off the bus when she got back home so the nurse at her facility called EMS. She has been coughing for months with some white sputum. She is not able to sleep flat at baseline. She also has persistent right neck pain but is not sure if she has had any spine problems. She does not normally wear oxygen at home but required 4L NC in the ED. She has felt chills lately, but no fevers. She was incontinent of diarrhea twice this morning. Six months ago she had diarrhea so bad she lost 10 pounds and it persisted for a month. She has also had urinary frequency. She has been seeing a industrial property appraiser due to her worsening kidney function and has had her lasix held and re-dosed a couple of times in the past month or so. Chest Pain, Acute on Chronic Systolic CHF, Hypoxic respiratory failure, Type II NSTEMI 06/28, history of CAD with stents, A.fib - consulted cardiology - per their rec patient started on dig and heparin gtt discontinued after 72 hours - on admission chest xray did not show overt congestion however BNP was 35,000. 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 due to kidney function - cardiology did not feel this was a true coronary event but rather demand ischemia - Echo showed EF 40%, GRade 2 diastolic dysfunction, Severe hypokinesis of inferior, septal base to mid wall, moderate to severe mitral regurgitation and severe pulmonary hypertension with PASP 60-65 mmHg - continue ASA, plavix, metoprolol - apparently patient has discussed this with her roll form operator in the past and was told she should only be on ASA due to difficulties managing anticoagulation - Patient was started by cardiology on digoxin yesterday - she will need follow up blood work to monitor her levels next week. CKD stage III/IV: nephrology following - Cr stable at 2.55, continue 40 mg po Lasix BID per nephrology - likely needs a daily diuretic given her heart failure, maybe BID on discharge - follows with Dr. Lujan for nephrology in [place] - K normal, Na has been stable 131 and patient is chronically low - has discussed HD with her industrial property appraiser as outpatient, she is open to it, no AV fistula placed yet Dr Collier encouraged her to have fistula placed as outpatient Hyperkalemia - resolved - K wnl DMII - bsgs ac & hs - continue home lantus 10 units HS, home short acting COPD - continue Symbicort - given prn duonebs for sob Anxiety - continue Lexapro Urinary Frequency - U/A, culture - no infection Supervising Note Dr. Dominguez I performed a history and physical examination on the patient. I reviewed above note and agree with it. I discussed plan with APC and patient. During my face to face encounter with the patient, I answered all of the patient's questions. Will continue plavix, statin, and dig as stated above. Will recommend f/u with PCP her dig. level Total Time Spent: Greater than 30 minutes This includes examination of the patient, discharge planning, medication reconciliation, and communication with other providers. Discharge Instructions Please refer to the electronic Patient Visit Report (Discharge Instructions) for additional information. Follow-Up Nephrology, cardiology, primary, urology
[2017-07-02 16:17] VITALS: BP 131/63; PULSE 76; TEMP 36.8; O2SAT 99
[2017-07-02 16:29] VITALS: BP 148/75; PULSE 60; TEMP 36.8; O2SAT 94
[2017-07-03] MEDS ORDERED: DIGOXIN 0.125 MG TAB PO SCH (16:00)
== END 2017-07-02 17:14 | disposition home health service (06) | DRG 280 ==
LOC: EDBD 14:05 → C.EDC 14:06 → C.2E 17:17 → ENRESERV 17:36 → OBSVTOIN 06-26 15:18 → ENRESERV 06-27 09:52 → C.MS4W 06-27 10:37 → C.2T 06-28 09:01 → ENRESERV 06-28 09:14 → C.2T 06-28 17:17
PROVIDERS: ADMIT Internal Medicine; ATTEND Internal Medicine Sports Medicine
DX: I13.0 Hypertensive heart and chronic kidney disease with heart failure and stage 1 through stage 4 chronic kidney disease, or unspecified chronic kidney disease (principal); I21.4 Non-ST elevation (NSTEMI) myocardial infarction; I50.43 Acute on chronic combined systolic (congestive) and diastolic (congestive) heart failure; N17.9 Acute kidney failure, unspecified; N18.4 Chronic kidney disease, stage 4 (severe); E87.1 Hypo-osmolality and hyponatremia; K21.9 Gastro-esophageal reflux disease without esophagitis; I48.0 Paroxysmal atrial fibrillation; E11.22 Type 2 diabetes mellitus with diabetic chronic kidney disease; R35.0 Frequency of micturition; I34.0 Nonrheumatic mitral (valve) insufficiency; J44.9 Chronic obstructive pulmonary disease, unspecified; E87.5 Hyperkalemia; F41.9 Anxiety disorder, unspecified; I27.20 Pulmonary hypertension, unspecified; Z66 Do not resuscitate; Z79.01 Long term (current) use of anticoagulants; Z79.4 Long term (current) use of insulin; Z79.82 Long term (current) use of aspirin; Z79.899 Other long term (current) drug therapy; Z95.0 Presence of cardiac pacemaker; Z95.1 Presence of aortocoronary bypass graft; Z88.0 Allergy status to penicillin; Z88.1 Allergy status to other antibiotic agents; Z88.2 Allergy status to sulfonamides

== ENCOUNTER 2017-09-30 14:39 | Inpatient (IN) | payer OTHER, MEDICARE ==
[~2017-09-30] VITALS: Ht 160 cm; Wt 69.7 kg
[~2017-09-30 14:39] MED LIST changes: -ASPI81TA28 PO; -ATR25 PO; -BENZ100C84 PO; -CRAN500C2 PO; -CYAN100020 PO; -DOCU100C31 PO; -ESCI10TA17 PO; -GFNSR600 PO; -INSU3INJ3 SQ; +LANS30CA12 PO; -LEVO50TA6 PO; +LNX125 PO; +LORA-741 PO; -LORA10CA2 PO; +LPT10 PO; -METO100T14 PO; -NITR0.4S UT; +PLV75 PO; -PRVIN525X NEB
--- NOTE | 2017-09-30 15:45 | DIAGNOSTIC IMAGING REPORT ---
CHEST ONE VIEW PORTABLE CLINICAL HISTORY: Atypical chest pain COMPARISON STUDY: 07/02/2017 FINDINGS: The heart is mildly enlarged. There are postsurgical changes of midline sternotomy. As a left subclavian dual-chamber central venous pacemaker. There is slight elevation of the interstitium consistent with mild pulmonary vascular congestion/fluid overload. There is no focal pulmonary consolidation. There are no significant pleural effusions[ IMPRESSION: Radiographic evidence of mild pulmonary vascular congestion/fluid overload Electronically signed by: Florian Lua M.D. 09/30/2017 3:43 PM Dictated Date/Time: 09/30/2017 3:42 PM
[2017-09-30 16:22] LABS: BASO % 0.3 %; BASO ABS # 0.02 K/uL (0-0.2); EOS % 3.6 %; EOS ABS # 0.25 K/uL (0-0.5); HEMOGLOBIN 11.8 g/dL (12.0-16.0); IG# 0.01 K/uL (0.00-0.02); LYMPH % 15.9 %; LYMPH ABS # 1.12 K/uL (1.2-3.4); MEAN CELL VOLUME 87.8 fL (80-100); MEAN CORPUSCULAR HEMOGLOBIN 28.8 pg (25-34); MEAN CORPUSCULAR HGB CONC 32.8 g/dl (32-36); MEAN PLATELET VOLUME 8.9 fL (7.4-10.4); MONO % 6.8 %; MONO ABS # 0.48 K/uL (0.11-0.59); NEUT % 73.3 %; NEUT ABS # 5.15 K/uL (1.4-6.5); PLATELET COUNT 218 K/uL (130-400); RED CELL DISTRIBUTION WIDTH CV 13.2 % (11.5-14.5); RED CELL DISTRIBUTION WIDTH SD 42.3 fL (36.4-46.3); WHITE BLOOD COUNT 7.03 K/uL (4.8-10.8)
[2017-09-30 16:49] LABS: ALBUMIN 3.3 gm/dl (3.4-5.0); ALKALINE PHOSPHATASE 135 U/L (45-117); ALT/SGPT 42 U/L (12-78); AST/SGOT 34 U/L (15-37); BLOOD UREA NITROGEN 42 mg/dl (7-18); CALCIUM 8.4 mg/dl (8.5-10.1); CARBON DIOXIDE 25 mmol/L (21-32); GLUCOSE 276 mg/dl (70-99); LIPASE 162 U/L (73-393); PHOSPHORUS 4.2 mg/dl (2.5-4.9); SODIUM 125 mmol/L (136-145); TOTAL PROTEIN 6.7 gm/dl (6.4-8.2)
[2017-09-30] MEDS ORDERED: FUROSEMIDE INJ 20 MG in SYRINGE 0 ML IV ONE (17:15)
[2017-09-30] MEDS ORDERED: DLTCD/240 PO (17:20)
--- NOTE | 2017-09-30 18:41 | History and Physical ---
History & Physical Date & Time of Service: Sep 30, 2017 at 18:13 Chief Complaint: Near Syncope/Respiratory Primary Care Physician: Deion Downs M.D. History of Present Illness Source: patient, hospital records, other 85 y/o F w/complex Hx including combined CHF, chronic AF, CAD, DM, CKD IV, pacemaker - presenting with progressive SOB and weakness for a few days. She denies CP or a an acute cough although she does have a chronic cough. Initial evaluation including labs, imaging and exam are consistent with exacerbation of CHF. Additionally, labs display worsening hyponatremia with a sodium of 125. 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%, grade II diastolic dysfunction 2) DM II 3) Chronic AF 4) Pacemaker 5) CKD IV - baseline creat 2-2.5 6) SBO due to incarcerated hernia 7) CAD - 5V CABG 8) Chronic hyponatremia 130 9) Esophageal candidiasis Surgical: 1) Incarcerated hernia surgery 2016 2) Hysterectomy 3) Cholecystectomy 4) Quintuple bypass 5) Appendectomy Family History Omitted secondary to age Social History Resides in assisted living - does not drink or smoke Smoking Status: Never Smoker Drug Use: none Marital Status: Housing status: assisted living Occupational Status: retired Allergies Coded Allergies: Fenofibrate (Verified Allergy, Intermediate, rash, 05/07/17) Amoxicillin (Verified Allergy, Unknown, UNKNOWN, 05/07/17) Calcium Carbonate (Verified Allergy, Unknown, ., 06/27/17) Ciprofloxacin (Verified Allergy, Unknown, ., 06/27/17) Diphenhydramine (Verified Allergy, Unknown, ., 06/27/17) Fexofenadine (Verified Allergy, Unknown, UNKNOWN, 05/07/17) Irbesartan (Verified Allergy, Unknown, UNKNOWN, 05/07/17) Lidocaine (Verified Allergy, Unknown, ., 06/27/17) Niacin (Verified Allergy, Unknown, RASH, 05/07/17) Nystatin (Verified Allergy, Unknown, ., 06/27/17) Penicillins (Verified Allergy, Unknown, UNKNOWN, 05/07/17) Sulfa Antibiotics (Verified Allergy, Unknown, UNKNOWN, 05/07/17) Flumazenil (Verified Adverse Reaction, Intermediate, DELIRIUM, 06/27/17) anxious, increased heart rate, increased blood pressure Tomato (Verified Adverse Reaction, Unknown, GI SYMPTOMS, 06/27/17) Home Medications Scheduled Albuterol Sulf (Albuterol Sulfate), 2.5 MG NEB Q4H Aspirin (Aspirin Ec), 81 MG PO QAM Atorvastatin (Lipitor), 10 MG PO DAILY Budesonide/Formoterol Fumarate (Symbicort 160/4.5 Inhaler ), 2 PUFFS INH BID Cholecalciferol (Vitamin D3), 1,000 INTER.UNIT PO QAM Clopidogrel (Plavix), 75 MG PO DAILY Cranberry (Vaccinium Macrocarp (Cranberry), 1,000 MG PO BID Cyanocobalamin (Vitamin B12), 1,000 MCG PO QAM Digoxin (Digoxin), 0.125 MG PO 3XWK Diltiazem Hcl (Diltiazem Cd), 240 MG PO DAILY Escitalopram (Lexapro), 5 MG PO DAILY Ferrous Sulfate (Kp Ferrous Sulfate), 325 MG PO QAM Furosemide (Lasix), 40 MG PO DAILY Insulin Glargine (Lantus Solostar), 20 UNITS SQ QAM Insulin Glargine (Lantus Solostar), 10 UNITS SQ QPM Lansoprazole (Prevacid), 30 MG PO DAILY Levothyroxine Sodium (Levothyroxine Sodium), 50 MCG PO QAM Loratadine (Claritin), 10 MG PO QAM Magnesium Oxide (Mag-Ox), 400 MG PO QAM Metoprolol Tartrate (Lopressor) (Lopressor), 100 MG PO BID Mometasone Furoate (Nasal) (Mometasone Furoate), 2 SPRAYS ANTOINE DAILY Scheduled PRN Buspirone Hcl (Buspirone Hcl), 5 MG PO BID PRN for Anxiety Docusate Sodium (Docusate Sodium), 100 MG PO BID PRN for Constipation Guaifenesin (Mucus Relief Er), 600 MG PO BID PRN for CONGESTION Nitroglycerin (Nitrostat), 0.4 MG UT UD PRN for Chest Pain Review of Systems Constitutional: + weakness, No fever, No chills, No sweats Eyes: No worsening of vision ENT: No hearing loss, No unusual epistaxis, No nasal symptoms Respiratory: + shortness of breath, + dyspnea on exertion, + dyspnea at rest, No cough, No sputum, No wheezing Cardiovascular: + orthopnea, No chest pain Abdomen: No pain, No nausea, No vomiting Genitourinary - Female: No dysuria, No urinary frequency Neurologic: + weakness, No memory loss, No paralysis Psychiatric: No depression symptoms Endocrine: + fatigue, No excessive thirst Hematologic / Lymphatic: No abnormal bleeding/bruising Integumentary: No rash Allergic / Immunologic: No environmental allergies Physical Exam Vital Signs Date Time Temp Pulse Resp B/P (MAP) Pulse Ox O2 Delivery O2 Flow Rate FiO2 09/30/17 17:53 79 18 97 Room Air 09/30/17 16:36 64 20 153/85 93 Room Air 09/30/17 16:01 74 18 152/65 98 Room Air 09/30/17 15:58 96 Room Air 09/30/17 15:58 96 Room Air 09/30/17 15:07 66 09/30/17 14:48 96 Room Air 09/30/17 14:48 36.8 72 20 152/65 96 Room Air General Appearance: WD/WN, no apparent distress, + pertinent finding ( Loquacious, elderly female - AAO x 3 ) Head: normocephalic Eyes: normal inspection, EOMI ENT: normal ENT inspection, pharynx normal Neck: supple, + JVD Respiratory/Chest: chest non-tender, + pertinent finding (There are crackles at the R base and reduced air entry at the bases BL) Cardiovascular: regular rate, rhythm, + JVD, + systolic murmur Abdomen/GI: normal bowel sounds, non tender, soft Back: normal inspection, no CVA tenderness Extremities/Musculoskelatal: normal range of motion, + pedal edema Neurologic/Psych: healthcare administrative assistant II-XII nml as tested, no motor/sensory deficits, alert, oriented x 3 Skin: normal color Diagnostics Laboratory Results Results Past 24 Hours Test 09/30/17 14:44 09/30/17 15:14 09/30/17 16:06 09/30/17 16:07 Range/Units Bedside Glucose 342 70-90 mg/dl Urine Color YELLOW Urine Appearance CLEAR CLEAR Urine pH 5.5 4.5-7.5 Urine Specific [place] 1.011 1.000-1.030 Urine Protein 2+ NEG Urine Glucose (UA) NEG NEG Urine Ketones NEG NEG Urine Occult Blood NEG NEG Urine Nitrite NEG NEG Urine Bilirubin NEG NEG Urine Urobilinogen NEG NEG Urine Leukocyte Esterase TRACE NEG Urine WBC (Auto) 1-5 0-5 /hpf Urine RBC (Auto) 0-4 0-4 /hpf Urine Hyaline Casts (Auto) 1-5 0-5 /lpf Urine Epithelial Cells (Auto) 10-20 0-5 /lpf Urine Bacteria (Auto) NEG NEG Digoxin Level 0.7 0.8-2.0 ng/ml White Blood Count 7.03 4.8-10.8 K/uL Red Blood Count 4.10 4.2-5.4 M/uL Hemoglobin 11.8 12.0-16.0 g/dL Hematocrit 36.0 37-47 % Mean Corpuscular Volume 87.8 80-100 fL Mean Corpuscular Hemoglobin 28.8 25-34 pg Mean Corpuscular Hemoglobin Concent 32.8 32-36 g/dl Platelet Count 218 130-400 K/uL Mean Platelet Volume 8.9 7.4-10.4 fL Neutrophils (%) (Auto) 73.3 % Lymphocytes (%) (Auto) 15.9 % Monocytes (%) (Auto) 6.8 % Eosinophils (%) (Auto) 3.6 % Basophils (%) (Auto) 0.3 % Neutrophils # (Auto) 5.15 1.4-6.5 K/uL Lymphocytes # (Auto) 1.12 1.2-3.4 K/uL Monocytes # (Auto) 0.48 0.11-0.59 K/uL Eosinophils # (Auto) 0.25 0-0.5 K/uL Basophils # (Auto) 0.02 0-0.2 K/uL RDW Standard Deviation 42.3 36.4-46.3 fL RDW Coefficient of Variation 13.2 11.5-14.5 % Immature Granulocyte % (Auto) 0.1 % Immature Granulocyte # (Auto) 0.01 0.00-0.02 K/uL Sodium Level 125 136-145 mmol/L Potassium Level 5.0 3.5-5.1 mmol/L Chloride Level 93 98-107 mmol/L Carbon Dioxide Level 25 21-32 mmol/L Anion Gap 7.0 3-11 mmol/L Blood Urea Nitrogen 42 7-18 mg/dl Creatinine 2.10 0.60-1.20 mg/dl Est Creatinine Clear Calc Drug Dose 18.0 ml/min Estimated GFR () 23.8 Estimated GFR (Non- 20.5 BUN/Creatinine Ratio 20.0 10-20 Random Glucose 276 70-99 mg/dl Calcium Level 8.4 8.5-10.1 mg/dl Phosphorus Level 4.2 2.5-4.9 mg/dl Magnesium Level 2.3 1.8-2.4 mg/dl Total Bilirubin 0.5 0.2-1 mg/dl Direct Bilirubin 0.2 0-0.2 mg/dl Aspartate Amino Transf (AST/SGOT) 34 15-37 U/L Alanine Aminotransferase (ALT/SGPT) 42 12-78 U/L Alkaline Phosphatase 135 45-117 U/L Troponin I < 0.015 0-0.045 ng/ml Pro-B-Type Natriuretic Peptide 25770 0-1800 pg/ml Total Protein 6.7 6.4-8.2 gm/dl Albumin 3.3 3.4-5.0 gm/dl Lipase 162 73-393 U/L Test 09/30/17 16:08 Range/Units Bedside Troponin I < 0.030 0-0.045 ng/ml Diagnostic Radiology CXR: Radiographic evidence of mild pulmonary vascular congestion/fluid overload. EKG Ventricular pacing - nondiagnostic Impression Assessment and Plan 85 y/o F w/complex Hx including combined CHF, chronic AF, CAD, DM, CKD IV, pacemaker - presenting with progressive SOB and weakness for a few days. She denies CP or a an acute cough although she does have a chronic cough. Initial evaluation including labs, imaging and exam are consistent with exacerbation of CHF. Additionally, labs display worsening hyponatremia with a sodium of 125. 1) CHF exacerbation - Will be placed on IV Lasix - daily weights, I/O - cont Metoprolol, Dig 2) Hyponatremia - weakness - We can probably correct her Na to approximately 127 due to her hyperglycemia. She is hypervolemic with combined CHF, therefore , if she does not correct with diuresis, she may be a candidate for Tolvaptan - we would consult nephrology at that point. 3) CKD IV - creat is at baseline 4) AF - rate is currently paced - cont B katie Diltiazem, ASA. Her CHADS score is dangerously high, however, there is clear records of discussion between her and her dental front office assistant regarding anticoagulation. It was concluded that she would not be treated. She had been on Coumadin for a period and did not tolerate or comply well with treatment. 5) CAD - cont ASA, statin, B katie 6) DM - placed on a sliding scale. Full code - Heparin prophylaxis Total time for this admit including review of labs, meds, imaging, records - discussion with pt and ER attending - 41 min. Resuscitation Status VTE Prophylaxis Will order VTE Prophylaxis: Yes
[2017-09-30] MEDS ORDERED: ONDANSETRON INJ 2 MG/ML 2 ML VIAL IV PRN (18:45)
[2017-09-30] MEDS ORDERED: MAGNESIUM HYDROXIDE SUSP 30 ML UDC PO PRN (18:45)
[2017-09-30] MEDS ORDERED: POLYETHYLENE (MIRALAX) 17 GM PACK PO PRN (18:45)
[2017-09-30] MEDS ORDERED: ACETAMINOPHEN 325 MG TAB PO PRN (18:45)
[2017-09-30] MEDS ORDERED: NITROGLYCERIN 0.4 MG SL PER TAB CHARGE UT PRN (18:45)
[2017-09-30] MEDS ORDERED: GUAIFENESIN 600 MG TABCR PO PRN (18:45)
[2017-09-30] MEDS ORDERED: ALBUTEROL 0.083% NEBU SOLN 3 ML VIAL INH PRN (18:45)
[2017-09-30] MEDS ORDERED: ALUMINUM/MAGNESIUM/SIMETH (MAALOX MAX) 30 ML UDC PO PRN (18:45)
[2017-09-30 19:26] VITALS: O2SAT 96
[2017-09-30 19:30] VITALS: BP 150/75; PULSE 75; TEMP 36.3; BMI 27.9
[2017-09-30] MEDS ORDERED: DEXTROSE 50% 50 ML SYR IV PRN (19:45)
[2017-09-30] MEDS ORDERED: GLUCAGON FOR INJ 1 MG VIAL IM PRN (19:45)
[2017-09-30] MEDS ORDERED: GLUCOSE 10 TABS/TUBE PO PRN (19:45)
[2017-09-30] MEDS ORDERED: GLUCOSE 40% GEL 15 GM TUBE PO PRN (19:45)
[2017-09-30] MEDS ORDERED: CARBOHYDRATES FOR HYPOGLYCEMIA PO PRN (19:45)
[2017-09-30] MEDS ORDERED: INSULIN GLARGINE SOLOSTAR 100 UNITS/ML 3 ML PEN SQ SCH (21:00)
[2017-09-30] MEDS: FUROSEMIDE INJ 20 MG in SYRINGE 0 ML IV SCH (21:22)
[2017-09-30] MEDS: METOPROLOL TARTRATE 100 MG TAB PO SCH (21:22)
[2017-09-30] MEDS: BUDESONIDE/FORMOTEROL FUMARATE 160/4.5 60 PUFFS/INHALER INH SCH (21:23)
[2017-09-30] MEDS: INSULIN ASPART 100 UNITS/ML 3 ML PEN SC SCH (21:24)
[2017-09-30] MEDS: HEPARIN SOD 5000 UNIT/0.5 ML CARP SQ SCH (21:25)
--- NOTE | 2017-09-30 21:27 | EMERGENCY ROOM VISIT NOTE ---
History Report prepared by Juan: Angel Sims Under the Supervision of: Dr. Dean Tomlinson First contact with patient: 14:47 Chief Complaint: WEAKNESS Stated Complaint: NEAR SYNCOPE/RESPIRATORY History of Present Illness The patient is a 87 year old female who presents to the Emergency Room with complaints of worsening weakness that began a couple of days ago. The patient states that for the last couple of days she has been experiencing shortness of breath and weakness for the last couple of days. She states that her symptoms are only mildly relieved with sitting and worsened with laying down. The patient states that she has been having difficulty walking due to her weakness. She also reports she had experienced a near syncope episode when she tried to walk. The patient states that she had her nurse come this morning. She states that she was told her lower extremities were swollen and had compression socks put on. The patient states that her BSG was 94. She states that the nurse also put powder on her waist line since there has been a rash. The patient states the rash was pruritic but states this sensation has resolved. She reports the area is painful. The patient states her nurse called Dr. Deion Downs for an appointment. She reports he was not available at the time. The patient denies any falls, loss of consciousness, abdominal pain, chest pain, and oxygen use. She reports a history of CHF and a lung infection due to yeast. She notes that she was recently put on antibiotics for a UTI. The patient states she is having a fistula placed on October 21. Source of History: patient Onset: a couple of days ago Position: other (generalized) Quality: other (weakness) Timing: worsening Associated Symptoms: + SOB, + rash, No LOC, No chest pain, No abdominal pain Note: Associated symptoms: near syncope, lower extremity swelling Review of Systems See HPI for pertinent positives and negatives. A total of ten systems were reviewed and were otherwise negative. Past Medical & Surgical Medical Problems: (1) Acute bronchitis with bronchiectasis (2) Acute exacerbation of CHF (congestive heart failure) (3) Acute on chronic systolic (congestive) heart failure (4) Atrial fibrillation (5) CHF (congestive heart failure) (6) CKD (chronic kidney disease) (7) CKD (chronic kidney disease), stage III (8) Cough (9) DM (diabetes mellitus) (10) GERD (gastroesophageal reflux disease) (11) Hypertension (12) Hyponatremia (13) Moderate to severe pulmonary hypertension (14) Pacemaker (15) PNA (pneumonia) (16) Renal failure (17) SBO (small bowel obstruction) (18) Severe mitral regurgitation Surgical Problems: (1) History of cardiac cath (2) S/P quintuple vessel bypass Family History Omitted secondary to age Social History Smoking Status: Never Smoker Alcohol Use: none Drug Use: none Marital Status: Housing Status: other Occupation Status: retired Current/Historical Medications Scheduled Albuterol Sulf (Albuterol Sulfate), 2.5 MG NEB Q4H Aspirin (Aspirin Ec), 81 MG PO QAM Atorvastatin (Lipitor), 10 MG PO DAILY Budesonide/Formoterol Fumarate (Symbicort 160/4.5 Inhaler ), 2 PUFFS INH BID Cholecalciferol (Vitamin D3), 1,000 INTER.UNIT PO QAM Clopidogrel (Plavix), 75 MG PO DAILY Cranberry (Vaccinium Macrocarp (Cranberry), 1,000 MG PO BID Cyanocobalamin (Vitamin B12), 1,000 MCG PO QAM Digoxin (Digoxin), 0.125 MG PO 3XWK Diltiazem Hcl (Diltiazem Cd), 240 MG PO DAILY Escitalopram (Lexapro), 5 MG PO DAILY Ferrous Sulfate (Kp Ferrous Sulfate), 325 MG PO QAM Furosemide (Lasix), 40 MG PO DAILY Insulin Glargine (Lantus Solostar), 20 UNITS SQ QAM Insulin Glargine (Lantus Solostar), 10 UNITS SQ QPM Lansoprazole (Prevacid), 30 MG PO DAILY Levothyroxine Sodium (Levothyroxine Sodium), 50 MCG PO QAM Loratadine (Claritin), 10 MG PO QAM Magnesium Oxide (Mag-Ox), 400 MG PO QAM Metoprolol Tartrate (Lopressor) (Lopressor), 100 MG PO BID Mometasone Furoate (Nasal) (Mometasone Furoate), 2 SPRAYS ANTOINE DAILY Scheduled PRN Buspirone Hcl (Buspirone Hcl), 5 MG PO BID PRN for Anxiety Docusate Sodium (Docusate Sodium), 100 MG PO BID PRN for Constipation Guaifenesin (Mucus Relief Er), 600 MG PO BID PRN for CONGESTION Nitroglycerin (Nitrostat), 0.4 MG UT UD PRN for Chest Pain Allergies Coded Allergies: Fenofibrate (Verified Allergy, Intermediate, rash, 05/07/17) Amoxicillin (Verified Allergy, Unknown, UNKNOWN, 05/07/17) Calcium Carbonate (Verified Allergy, Unknown, ., 06/27/17) Ciprofloxacin (Verified Allergy, Unknown, ., 06/27/17) Diphenhydramine (Verified Allergy, Unknown, ., 06/27/17) Fexofenadine (Verified Allergy, Unknown, UNKNOWN, 05/07/17) Irbesartan (Verified Allergy, Unknown, UNKNOWN, 05/07/17) Lidocaine (Verified Allergy, Unknown, ., 06/27/17) Niacin (Verified Allergy, Unknown, RASH, 05/07/17) Nystatin (Verified Allergy, Unknown, ., 06/27/17) Penicillins (Verified Allergy, Unknown, UNKNOWN, 05/07/17) Sulfa Antibiotics (Verified Allergy, Unknown, UNKNOWN, 05/07/17) Flumazenil (Verified Adverse Reaction, Intermediate, DELIRIUM, 06/27/17) anxious, increased heart rate, increased blood pressure Tomato (Verified Adverse Reaction, Unknown, GI SYMPTOMS, 06/27/17) Physical Exam Vital Signs Date Time Temp Pulse Resp B/P (MAP) Pulse Ox O2 Delivery O2 Flow Rate FiO2 09/30/17 17:53 79 18 97 Room Air 09/30/17 16:36 64 20 153/85 93 Room Air 09/30/17 16:01 74 18 152/65 98 Room Air 09/30/17 15:58 96 Room Air 09/30/17 15:58 96 Room Air 09/30/17 15:07 66 09/30/17 14:48 96 Room Air 09/30/17 14:48 36.8 72 20 152/65 96 Room Air Physical Exam GENERAL: Awake, alert, well-appearing, in no distress HENT: Normocephalic, atraumatic. Oropharynx unremarkable. EYES: Normal conjunctiva. Sclera non-icteric. NECK: Supple. No nuchal rigidity. RESPIRATORY: Clear to auscultation. No wheezes. Normal respiratory effort. CARDIAC: Irregular rate. Normal rhythm. Extremities warm and well perfused. GI: Soft, non-distended. No tenderness to palpation. No rebound or guarding. No masses. RECTAL: Deferred. MUSCULOSKELETAL: Atraumatic. Chest examination reveals no tenderness. The back is symmetrical on inspection without obvious abnormality. There is no CVA tenderness to palpation. LOWER EXTREMITIES: Calves are equal size bilaterally and non-tender. In compression stockings with 1-2+ edema to the bilateral mid calves. NEURO: Normal sensorium. No sensory or motor deficits noted. SKIN: Warm and dry. Under the abdominal pannicular fold left greater than right erythema with a few areas of plaque on the left approximately a cm. Medical Decision & Procedures ER Provider Diagnostic Interpretation: X-ray: Per my interpretation, radiologist review. CHEST ONE VIEW PORTABLE CLINICAL HISTORY: Atypical chest pain COMPARISON STUDY: 07/02/2017 FINDINGS: The heart is mildly enlarged. There are postsurgical changes of midline sternotomy. As a left subclavian dual-chamber central venous pacemaker. There is slight elevation of the interstitium consistent with mild pulmonary vascular congestion/fluid overload. There is no focal pulmonary consolidation. There are no significant pleural effusions[ IMPRESSION: Radiographic evidence of mild pulmonary vascular congestion/fluid overload Electronically signed by: Florian Lua M.D. 09/30/2017 3:43 PM Dictated Date/Time: 09/30/2017 3:42 PM Laboratory Results 09/30/17 16:07 Red Blood Count 4.10, Mean Corpuscular Volume 87.8, Mean Corpuscular Hemoglobin 28.8, Mean Corpuscular Hemoglobin Concent 32.8, Mean Platelet Volume 8.9, Neutrophils (%) (Auto) 73.3, Lymphocytes (%) (Auto) 15.9, Monocytes (%) (Auto) 6.8, Eosinophils (%) (Auto) 3.6, Basophils (%) (Auto) 0.3, Neutrophils # (Auto) 5.15, Lymphocytes # (Auto) 1.12, Monocytes # (Auto) 0.48, Eosinophils # (Auto) 0.25, Basophils # (Auto) 0.02 09/30/17 16:07 Test 09/30/17 15:14 09/30/17 16:06 09/30/17 16:07 09/30/17 16:08 Urine Color YELLOW Urine Appearance CLEAR (CLEAR) Urine pH 5.5 (4.5-7.5) Urine Specific [place] 1.011 (1.000-1.030) Urine Protein 2+ (NEG) Urine Glucose (UA) NEG (NEG) Urine Ketones NEG (NEG) Urine Occult Blood NEG (NEG) Urine Nitrite NEG (NEG) Urine Bilirubin NEG (NEG) Urine Urobilinogen NEG (NEG) Urine Leukocyte Esterase TRACE (NEG) Urine WBC (Auto) 1-5 /hpf (0-5) Urine RBC (Auto) 0-4 /hpf (0-4) Urine Hyaline Casts (Auto) 1-5 /lpf (0-5) Urine Epithelial Cells (Auto) 10-20 /lpf (0-5) Urine Bacteria (Auto) NEG (NEG) Digoxin Level 0.7 ng/ml (0.8-2.0) White Blood Count 7.03 K/uL (4.8-10.8) Red Blood Count 4.10 M/uL (4.2-5.4) Hemoglobin 11.8 g/dL (12.0-16.0) Hematocrit 36.0 % (37-47) Mean Corpuscular Volume 87.8 fL (80-100) Mean Corpuscular Hemoglobin 28.8 pg (25-34) Mean Corpuscular Hemoglobin Concent 32.8 g/dl (32-36) Platelet Count 218 K/uL (130-400) Mean Platelet Volume 8.9 fL (7.4-10.4) Neutrophils (%) (Auto) 73.3 % Lymphocytes (%) (Auto) 15.9 % Monocytes (%) (Auto) 6.8 % Eosinophils (%) (Auto) 3.6 % Basophils (%) (Auto) 0.3 % Neutrophils # (Auto) 5.15 K/uL (1.4-6.5) Lymphocytes # (Auto) 1.12 K/uL (1.2-3.4) Monocytes # (Auto) 0.48 K/uL (0.11-0.59) Eosinophils # (Auto) 0.25 K/uL (0-0.5) Basophils # (Auto) 0.02 K/uL (0-0.2) RDW Standard Deviation 42.3 fL (36.4-46.3) RDW Coefficient of Variation 13.2 % (11.5-14.5) Immature Granulocyte % (Auto) 0.1 % Immature Granulocyte # (Auto) 0.01 K/uL (0.00-0.02) Prothrombin Time 10.4 SECONDS (9.0-12.0) Prothromb Time International Ratio 1.0 (0.9-1.1) Anion Gap 7.0 mmol/L (3-11) Est Creatinine Clear Calc Drug Dose 18.0 ml/min Estimated GFR () 23.8 Estimated GFR (Non- 20.5 BUN/Creatinine Ratio 20.0 (10-20) Calcium Level 8.4 mg/dl (8.5-10.1) Phosphorus Level 4.2 mg/dl (2.5-4.9) Magnesium Level 2.3 mg/dl (1.8-2.4) Total Bilirubin 0.5 mg/dl (0.2-1) Direct Bilirubin 0.2 mg/dl (0-0.2) Aspartate Amino Transf (AST/SGOT) 34 U/L (15-37) Alanine Aminotransferase (ALT/SGPT) 42 U/L (12-78) Alkaline Phosphatase 135 U/L (45-117) Troponin I < 0.015 ng/ml (0-0.045) Pro-B-Type Natriuretic Peptide 94047 pg/ml (0-1800) Total Protein 6.7 gm/dl (6.4-8.2) Albumin 3.3 gm/dl (3.4-5.0) Lipase 162 U/L (73-393) Bedside Troponin I < 0.030 ng/ml (0-0.045) Laboratory results reviewed by me Medications Administered Medications (Trade) Dose Ordered Sig/Leslee Route Start Time Stop Time Status Last Admin Dose Admin Furosemide 20 mg/ Syringe 2 ml @ 4 mls/min ONE ONCE IV 09/30/17 17:15 09/30/17 17:16 DC 09/30/17 17:50 4 MLS/MIN ECG Per My Interpretation Indication: weakness Rate (beats per minute): 78 Rhythm: atrial flutter Findings: other (Variable conductivity, ventricular paced) Comparison ECG Date: 06/28/17 Change: no significant change ED Course 1456: The patient was evaluated in room C01A. A complete history and physical exam was performed. 1708: I reevaluated the patient and updated her on her results. 1711: I reevaluated the patient and updated her on her results. I discussed the treatment plan, which she understands and agrees to. The patient will be evaluated for further management and care. 1714: I discussed the patients case with Dr. Winchester [facility] Hospitalist. He understands the patients condition and agrees to accept the patient. The patient will be evaluated for further management and care. 1715: Ordered Furosemide 20 mg/Syringe 2 ml @ 4 mls/min IV. Medical Decision Differential Diagnosis includes: cardiac disease, pneumonia, heart failure exacerbation, UTI, electrolyte imbalance, and worsening renal function. Patient presents with complaint of several days of worsening generalized weakness with difficulty controlling her glucoses well. Having some worsening candidal infection along her pannicular fold left greater than right is noted as well. Denies active chest pain but concerned given her history for occult ACS. Troponin & EKG completed without acute ischemic findings. Some evidence of increased lower extremity swelling and some increased breath now with orthopnea. Chest x-ray with signs of some increased fluid congestion. ProBNP elevated. Believe she is having congestive heart failure exacerbation with some hyponatremia. Kidney function noted but not worse than normal. Will admit for monitor diuresis given her comorbidities, SOB, borderline kidney function and hyponatremia. Given 20 mg of IV Lasix here. No evidence of dig toxicity or atrial fibrillation with rapid ventricular response. Admitted to floor. Medication Reconcilliation Current Medication List: was personally reviewed by me Blood Pressure Screening Patient's blood pressure: Elevated blood pressure Referred to Hospitalist Consults Time Called: 1713 Consulting Physician: Dr. Winchester [facility] Hospitalist Returned Call: [phone] I discussed the patients case with Dr. Winchester [facility] Hospitalist. He understands the patients condition and agrees to accept the patient. The patient will be evaluated for further management and care. Impression Primary Impression: CHF exacerbation Additional Impression: Hyponatremia Scribe Attestation The scribe's documentation has been prepared under my direction and personally reviewed by me in its entirety. I confirm that the note above accurately reflects all work, treatment, procedures, and medical decision making performed by me. Departure Information Dispostion Being Evaluated By Hospitalist Referrals Deion Downs M.D. (PCP) Patient Instructions My [facility] Problem Qualifiers Primary Impression: CHF exacerbation Heart failure type: systolic Qualified Codes: I50.23 - Acute on chronic systolic (congestive) heart failure
[2017-09-30] MEDS ORDERED: ESCITALOPRAM OXALATE 10 MG TAB PO ONE (21:55)
[2017-09-30 23:38] VITALS: BP 128/70; PULSE 72; TEMP 36.9; O2SAT 94
[2017-10-01 00:46] LABS: CALCIUM 8.1 mg/dl (8.5-10.1); CREATININE 2.03 mg/dl (0.60-1.20); POTASSIUM 4.4 mmol/L (3.5-5.1)
[2017-10-01 03:40] VITALS: BP 124/69; PULSE 69; TEMP 36.6; O2SAT 92
[2017-10-01 04:10] LABS: HEMATOCRIT 34.5 % (37-47); MEAN CELL VOLUME 87.6 fL (80-100); MEAN CORPUSCULAR HEMOGLOBIN 27.9 pg (25-34); MEAN CORPUSCULAR HGB CONC 31.9 g/dl (32-36); MEAN PLATELET VOLUME 8.7 fL (7.4-10.4); PLATELET COUNT 233 K/uL (130-400); RED CELL DISTRIBUTION WIDTH SD 41.9 fL (36.4-46.3); WHITE BLOOD COUNT 7.69 K/uL (4.8-10.8)
[2017-10-01 04:44] LABS: CALCIUM 8.1 mg/dl (8.5-10.1); CREATININE 2.05 mg/dl (0.60-1.20); POTASSIUM 4.7 mmol/L (3.5-5.1)
[2017-10-01] MEDS: LEVOTHYROXINE 50 MCG TAB PO SCH (05:57)
[2017-10-01] MEDS: HEPARIN SOD 5000 UNIT/0.5 ML CARP SQ SCH ×3 (05:59→21:17)
[2017-10-01 07:14] VITALS: BP 128/69; PULSE 70; TEMP 37; O2SAT 93
[2017-10-01] MEDS: INSULIN ASPART 100 UNITS/ML 3 ML PEN SC SCH ×4 (08:42→21:00)
[2017-10-01] MEDS: INSULIN GLARGINE SOLOSTAR 100 UNITS/ML 3 ML PEN SQ SCH (08:43)
[2017-10-01] MEDS: BUDESONIDE/FORMOTEROL FUMARATE 160/4.5 60 PUFFS/INHALER INH SCH ×2 (08:45→21:09)
[2017-10-01] MEDS: FUROSEMIDE INJ 20 MG in SYRINGE 0 ML IV SCH ×3 (08:45→21:09)
[2017-10-01] MEDS: LORATADINE 10 MG TAB PO SCH (08:46)
[2017-10-01] MEDS: MAGNESIUM OXIDE 400 MG TAB PO SCH (08:46)
[2017-10-01] MEDS: FERROUS SULFATE 325 MG TAB PO SCH (08:47)
[2017-10-01] MEDS: PANTOprazole SOD 40 MG TAB PO SCH (08:47)
[2017-10-01] MEDS: METOPROLOL TARTRATE 100 MG TAB PO SCH ×2 (08:47→21:12)
--- NOTE | 2017-10-01 08:47 | Clinical Documentation Query ---
CLINICAL DOCUMENTATION QUERY 85 yo female admitted with a history of combined CHF is admitted for CHF exacerbation. Patient was treated with IV Lasix in the ED. In your clinical opinion is this patient being managed for: ( x ) Acute on chronic combined systolic (congestive) and diastolic (congestive) heart failure ( ) Not Agree ( ) Other explanation of clinical findings (No explanation is considered a No Response) ( ) Unable to determine ( ) Need to Discuss (Phone CDS or qliq) (No discussion is considered a No Response) The medical record reflects the following clinical findings, treatment, and risk factors. Clinical Indicators: As above, crackles in R base/decreased breath sounds, pedal edema, +JVD Treatment: IV Lasix, telemetry, O2, I&O Risk Factors: Age, chronic combined CHF, past echo = EF 40%, grade II diastolic dysfunction Please clarify and document your clinical opinion in the progress notes and discharge summary. Terms such as "probable", "suspected", "likely", "questionable", "possible", or "still to be ruled out" are acceptable. IF IN AGREEMENT, YOU MUST DOCUMENT ABOVE DIAGNOSTIC STATEMENT IN DAILY PROGRESS NOTES AND DISCHARGE SUMMARY. This document is not part of the patient's record. Thank You, Joie Garcia RN, MSN [id number]
[2017-10-01] MEDS: CYANOCOBALAMIN 500 MCG TAB (VIT B-12) PO SCH (08:48)
[2017-10-01] MEDS: CLOPIDOGREL BISULFATE 75 MG TAB PO SCH (08:49)
[2017-10-01] MEDS: ATORVASTATIN 10 MG TAB PO SCH (08:49)
[2017-10-01] MEDS: DILTIAZEM HCL 240 MG CAPCR PO SCH (08:53)
[2017-10-01] MEDS: ASPIRIN 81 MG ECTAB PO SCH (08:53)
[2017-10-01] MEDS: ESCITALOPRAM OXALATE 10 MG TAB PO SCH (08:54)
[2017-10-01 11:41] VITALS: BP 131/64; PULSE 72; TEMP 37; O2SAT 96
[2017-10-01 15:01] VITALS: Ht 160 cm; Wt 69.7 kg
[2017-10-01] MEDS ORDERED: DIGOXIN 0.125 MG TAB PO SCH (16:00)
[2017-10-01 16:59] VITALS: BP 128/70; PULSE 70; TEMP 36.7; O2SAT 96
[2017-10-01 19:34] VITALS: BP 124/67; PULSE 70; TEMP 36.9; O2SAT 96
[2017-10-01] MEDS ORDERED: INSULIN GLARGINE SOLOSTAR 100 UNITS/ML 3 ML PEN SQ SCH (21:00)
[2017-10-01] MEDS ORDERED: ESCITALOPRAM OXALATE 10 MG TAB PO SCH (21:00)
--- NOTE | 2017-10-01 21:16 | Progress Note ---
Subjective Date of Service: Oct 01, 2017. Subjective Pt evaluation today including: conversation w/ patient, physical exam, lab review, review of studies, review of inpatient medication list Pain: no pain PO Intake: adequate Voiding: no voiding problems patient says her breathing is much better, no distress, able to walk to bathroom urinating more than normal, although no accurate I/O's she says that she was drinking more fluids than normal because they were having a hard time getting blood work discussed that that would not be a good idea in the future reviewed labs, Cr stable at 2.0 c/o rash on right medial ankle as well as thickened skin that would bleed when scratched a lot, this was in stomach crease had been there for some time, was following with a marketing support specialist but she moved away, needs to re-establish Problem List Medical Problems: (1) Acute bronchitis Status: Acute (2) Altered mental status Status: Acute (3) Anemia Status: Acute (4) Atypical chest pain Status: Acute (5) CHF exacerbation Status: Acute (6) CKD (chronic kidney disease) Status: Chronic (7) Degenerative disc disease, cervical Status: Acute (8) E86.0 Status: Acute (9) Edema Status: Acute (10) EKG, abnormal Status: Acute (11) Hyperglycemia Status: Acute (12) Hyperglycemia due to type 2 diabetes mellitus Status: Acute (13) Hyponatremia Status: Acute (14) Incarcerated right inguinal hernia Status: Acute (15) Left leg cellulitis Status: Acute (16) Leukocytosis Status: Acute (17) Pneumonia Status: Acute (18) Pneumonitis Status: Acute (19) Pneumonitis Status: Acute (20) Respiratory distress Status: Acute (21) Small bowel obstruction Status: Acute (22) UTI (urinary tract infection) Status: Acute (23) Vomiting and diarrhea Status: Acute (24) Weakness Status: Acute Review of Systems Constitutional: + weakness, + fatigue Respiratory: + dyspnea on exertion Skin: + rash (right medial ankle, abdomen in creases) Objective Vital Signs Date Time Temp Pulse Resp B/P (MAP) Pulse Ox O2 Delivery O2 Flow Rate FiO2 10/01/17 19:34 36.9 70 16 124/67 (86) 96 Room Air 10/01/17 16:59 36.7 70 20 128/70 (89) 96 Room Air 10/01/17 16:26 70 10/01/17 11:41 37.0 72 18 131/64 (86) 96 10/01/17 08:00 Room Air 10/01/17 07:14 37.0 70 18 128/69 (88) 93 Room Air 10/01/17 03:40 36.6 69 18 124/69 (87) 92 Room Air 09/30/17 23:38 36.9 72 18 128/70 (89) 94 Room Air Physical Exam General Appearance: WD/WN, no apparent distress Eyes: normal inspection, EOMI, sclerae normal ENT: normal ENT inspection, hearing grossly normal, pharynx normal Neck: supple, no adenopathy, no JVD, trachea midline Respiratory/Chest: chest non-tender, lungs clear, normal breath sounds, no respiratory distress, no accessory muscle use Cardiovascular: no edema, no gallop, no JVD, no murmur, + irregularly irregular Abdomen: normal bowel sounds, non tender, soft, no organomegaly Extremities: normal range of motion, non-tender, normal inspection, no pedal edema, no calf tenderness, pelvis stable Neurologic/Psychiatric: 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 left stomach fold, raised, hardened skin, erythematous but difficult to assess due to white cream applied) Laboratory Results Last 24 Hours Test 09/30/17 23:56 10/01/17 03:52 10/01/17 05:06 10/01/17 06:03 Sodium Level 130 mmol/L 131 mmol/L Potassium Level 4.4 mmol/L 4.7 mmol/L Chloride Level 96 mmol/L 97 mmol/L Carbon Dioxide Level 25 mmol/L 26 mmol/L Anion Gap 9.0 mmol/L 8.0 mmol/L Blood Urea Nitrogen 40 mg/dl 39 mg/dl Creatinine 2.03 mg/dl 2.05 mg/dl Est Creatinine Clear Calc Drug Dose 18.1 ml/min 18.0 ml/min Estimated GFR () 24.7 24.5 Estimated GFR (Non- 21.4 21.1 BUN/Creatinine Ratio 19.6 19.1 Random Glucose 108 mg/dl 53 mg/dl Calcium Level 8.1 mg/dl 8.1 mg/dl White Blood Count 7.69 K/uL Red Blood Count 3.94 M/uL Hemoglobin 11.0 g/dL Hematocrit 34.5 % Mean Corpuscular Volume 87.6 fL Mean Corpuscular Hemoglobin 27.9 pg Mean Corpuscular Hemoglobin Concent 31.9 g/dl RDW Standard Deviation 41.9 fL RDW Coefficient of Variation 13.0 % Platelet Count 233 K/uL Mean Platelet Volume 8.7 fL Magnesium Level 2.2 mg/dl Bedside Glucose 206 mg/dl 212 mg/dl Test 10/01/17 08:09 10/01/17 12:06 10/01/17 16:24 Bedside Glucose 246 mg/dl 160 mg/dl 135 mg/dl Assessment and Plan 85 y/o F w/complex Hx including combined CHF, chronic AF, CAD, DM, CKD IV, pacemaker - presenting with progressive SOB and weakness for a few days. She denies CP or a an acute cough although she does have a chronic cough. Initial evaluation including labs, imaging and exam are consistent with exacerbation of CHF. Additionally, labs display worsening hyponatremia with a sodium of 125. 1) acute on chronic diastolic and systolic heart failure symptoms dramatically improved, although UO is not impressive, likely inaccurate patient admits to urinating more than normal, receiving 3x her normal Lasix dose will check weight in the morning examines euvolemic, lungs clear check BMP in the morning, possible d/c to assisted living tomorrow 2) Hyponatremia - chronic, improved slightly to 131, will continue to monitor 3) CKD IV - creat is at baseline, 2.0 yesterday and again today, despite extra Lasix dosing 4) chronic atrial fibrillation - rate is currently paced - cont B katie Diltiazem, ASA. Her CHADS score is dangerously high, however, there is clear records of discussion between her and her behavioral psychologist regarding anticoagulation. It was concluded that she would not be treated. She had been on Coumadin for a period and did not tolerate or comply well with treatment. 5) CAD - cont ASA, statin, B katie 6) DM - episode of hypoglycemia this morning, 53, she was symptomatic responded well to dextrose will decrease evening Lantus to 5 units from 10 units, monitor closely Full code - Heparin prophylaxis
[2017-10-01 23:23] VITALS: BP 121/63; PULSE 70; TEMP 36.7; O2SAT 95
[2017-10-02 02:45] VITALS: BP 133/71; PULSE 70; TEMP 36.6; O2SAT 96
[2017-10-02] MEDS: LEVOTHYROXINE 50 MCG TAB PO SCH (05:53)
[2017-10-02] MEDS: HEPARIN SOD 5000 UNIT/0.5 ML CARP SQ SCH (05:56)
[2017-10-02 06:30] VITALS: BP 133/52; PULSE 70; TEMP 37; O2SAT 98
[2017-10-02] MEDS: INSULIN ASPART 100 UNITS/ML 3 ML PEN SC SCH (07:00)
[2017-10-02] MEDS: FERROUS SULFATE 325 MG TAB PO SCH (07:24)
[2017-10-02] MEDS: PANTOprazole SOD 40 MG TAB PO SCH (07:25)
[2017-10-02] MEDS: ESCITALOPRAM OXALATE 10 MG TAB PO SCH (07:25)
[2017-10-02] MEDS: LORATADINE 10 MG TAB PO SCH (07:25)
[2017-10-02] MEDS: FUROSEMIDE INJ 20 MG in SYRINGE 0 ML IV SCH (07:26)
[2017-10-02] MEDS: ATORVASTATIN 10 MG TAB PO SCH (07:26)
[2017-10-02] MEDS: METOPROLOL TARTRATE 100 MG TAB PO SCH (07:27)
[2017-10-02] MEDS: DILTIAZEM HCL 240 MG CAPCR PO SCH (07:27)
[2017-10-02] MEDS: MAGNESIUM OXIDE 400 MG TAB PO SCH (07:28)
[2017-10-02] MEDS: CYANOCOBALAMIN 500 MCG TAB (VIT B-12) PO SCH (07:28)
[2017-10-02] MEDS: BUDESONIDE/FORMOTEROL FUMARATE 160/4.5 60 PUFFS/INHALER INH SCH (07:29)
[2017-10-02 07:40] LABS: CALCIUM 8.2 mg/dl (8.5-10.1); CREATININE 2.17 mg/dl (0.60-1.20); POTASSIUM 4.6 mmol/L (3.5-5.1)
[2017-10-02] MEDS: INSULIN GLARGINE SOLOSTAR 100 UNITS/ML 3 ML PEN SQ SCH (08:07)
[2017-10-02] MEDS: CLOPIDOGREL BISULFATE 75 MG TAB PO SCH (08:39)
[2017-10-02] MEDS: ASPIRIN 81 MG ECTAB PO SCH (08:52)
--- NOTE | 2017-10-02 09:05 | Discharge Instructions ---
Discharge Instructions Date of Service Oct 02, 2017. Admission Reason for Admission: Acute Exacerbation Of Chf,Hyponatremia Discharge Discharge Diagnosis / Problem: Acute on chronic diastolic and systolic heart failure Discharge Goals Goal(s): Improve function, Improve disease control Activity Recommendations Activity Limitations: resume your previous activity . Instructions / Follow-Up Instructions / Follow-Up Medications: no changes - Acute heart failure: due to drinking too much fluid for lab work diuresed well with increased dosing of Lasix for two days kidney function stable resume normal dose of Lasix 40mg daily DO NOT DRINK EXCESS FLUIDS IN THE FUTURE - Rash: right ankle and abdomen unclear etiology, would recommend a referral to medical device sales representative as outpatient can be arranged by PCP FOLLOW UP - Dr. Downs in one week, call for appointment Call your Primary Care doctor if any of the following symptoms or problems start or get worse: * Shortness of breath or difficulty breathing * Wake up at night short of breath * Chest pain * Cough * Swelling of your hands, feet, or legs * More fatigued or tired with your normal activity * Palpitations - sudden fast heart beats WEIGHT * Weigh yourself every morning after using the bathroom. * Use the same scale. * Wear the same amount of clothing. * Write your weight down on a chart. * Call your Primary Care doctor if you gain more than 2-3 pounds in 1-2 days. MEDICATIONS * Use this discharge instruction sheet for medication instructions. * Take your medications at the time your doctor ordered. * Do not skip a dose of your medicines. * If you miss a dose of medicine, take it as soon as possible, but DO NOT DOUBLE A DOSE. * Read your medicine information when you get home. * Know all of the side effects of your medicine. If in doubt, ask your pharmacist * Call your Primary Care doctor's office if you have any side effects. * Be sure all of your doctors know what medicine and herbs you take (including cold, flu, and herbal medicine). Take the following with you to your follow-up doctor appointments: * Weight Chart * Medication List * List of questions Do not drink excessive alcohol, beer or wine. Current Hospital Diet Patient's current hospital diet: AHA Diet (Heart Healthy), Diabetes Type 2 Diet Discharge Diet Recommended Diet: AHA Diet (Heart Healthy), Diabetes Type 2 Diet Fluid Restriction: 1800 ml (7 cups) Pending Studies Studies pending at discharge: no Medical Emergencies . Who to Call and When: Call 911 or go to the Emergency Room if: * If at any time you feel your situation is an emergency * You have tightness or pain in your chest that does not go away with rest or Nitroglycerin * You are very short of breath even with rest . Non-Emergent Contact Non-Emergency issues call your: Primary Care Provider Call Non-Emergent contact if: you have any medication questions . . "Provider Documentation" section prepared by Omar Perez. . [place] Drug Monitoring Program Search Results: no issues identified
[2017-10-02 09:19] VITALS: BP 133/52; PULSE 70; TEMP 37; O2SAT 98
--- NOTE | 2017-10-03 08:49 | EDITING REQUIRED CODING QUERY ---
CODING QUERY To promote full compliance with coding requirements relating to patient care, provider participation is requested in all cases of agricultural specialist uncertainty. Please assist us with the question(s) below: Coding Question(s): The ER H&P documents in the history that the patient has Hypertension, however, there is no further documentation of a diagnosis of Hypertension. Please clarify below, in your clinical opinion, regarding Hypertension. ( x ) the patient has Hypertension ( ) the patient does Not have Hypertension Physician's Response(s): Thank you Agatha Jenkins Principal Diagnosis: "_that condition established after study, to be chiefly responsible for occasioning the admission of the patient to the hospital for care." Co-Existing Principal Diagnosis: "_when two or more diagnoses equally meet the criteria for principal diagnosis as determined by the circumstances of admission, diagnostic work up, and/or therapy provided, and the Alphabetic Index, Tabular List, or another coding guideline does not provide sequencing direction, any one of the diagnoses may be sequenced first." "When the physician has documented what appears to be a current diagnosis in the body of the record, but has not included the diagnosis in the final diagnostic statement, the physician should be asked whether the diagnosis should be added." (Source Coding [facility] 2 QTR90. p3-4)
--- NOTE | 2017-10-09 21:46 | Discharge Summary ---
Discharge Summary Date of Service Oct 02, 2017. Discharge Summary Admission Date: Sep 30, 2017 at 18:44 Discharge Date: Oct 02, 2017 Discharge Disposition: Personal care Principal Diagnosis: Acute on chronic diastolic and systolic heart failure Problems/Secondary Diagnoses: (1) CKD (chronic kidney disease) Status: Chronic Procedures: none Consultations: none Medication Reconciliation Continued Medications: Albuterol Sulf (Albuterol Sulfate) 2.5 Mg/0.5 Ml Nebu 2.5 MG NEB Q4H WHILE AWAKE Aspirin (Aspirin Ec) 81 Mg Tab 81 MG PO QAM Atorvastatin (Lipitor) 10 Mg Tab 10 MG PO DAILY, TAB Budesonide/Formoterol Fumarate (Symbicort 160/4.5 Inhaler ) Aero 2 PUFFS INH BID Buspirone Hcl (Buspirone Hcl) 5 Mg Tab 5 MG PO BID PRN for Anxiety, TAB Cholecalciferol (Vitamin D3) 1,000 Unit Cap 1000 INTER.UNIT PO QAM Clopidogrel (Plavix) 75 Mg Tab 75 MG PO DAILY, TAB Cranberry (Vaccinium Macrocarp (Cranberry) 500 Mg Cap 1000 MG PO BID Cyanocobalamin (Vitamin B12) 1,000 Mcg Tab 1000 MCG PO QAM Digoxin (Digoxin) 0.125 Mg Tab 0.125 MG PO 3XWK DAILY ON SATURDAY/SATURDAY/SATURDAY. Diltiazem Hcl (Diltiazem Cd) 240 Mg Capcr 240 MG PO DAILY, CAP Docusate Sodium (Docusate Sodium) 100 Mg Cap 100 MG PO BID PRN for Constipation Escitalopram (Lexapro) 10 Mg Tab 5 MG PO DAILY 1/2 TABLET DOSAGE Ferrous Sulfate (Kp Ferrous Sulfate) 325 Mg Tab 325 MG PO QAM TAKE WITH FOOD. Furosemide (Lasix) 40 Mg Tab 40 MG PO DAILY, TAB Guaifenesin (Mucus Relief Er) 600 Mg Tab 600 MG PO BID PRN for CONGESTION Insulin Glargine (Lantus Solostar) 100 Unit/Ml Inj 20 UNITS SQ QAM Insulin Glargine (Lantus Solostar) 100 Unit/Ml Inj 10 UNITS SQ QPM Lansoprazole (Prevacid) 30 Mg Capcr 30 MG PO DAILY Levothyroxine Sodium (Levothyroxine Sodium) 50 Mcg Tab 50 MCG PO QAM Loratadine (Claritin) 10 Mg Cap 10 MG PO QAM Magnesium Oxide (Mag-Ox) 400 Mg Tab 400 MG PO QAM Metoprolol Tartrate (Lopressor) (Lopressor) 100 Mg Tab 100 MG PO BID Mometasone Furoate (Nasal) (Mometasone Furoate) 50 Mcg/Act Spr 2 SPRAYS ANTOINE DAILY Nitroglycerin (Nitrostat) 0.4 Mg Sub 0.4 MG UT UD PRN for Chest Pain PLACE ONE TABLET UNDER THE TONGUE EVERY 5 MINUTES FOR UP TO 3 DOSES IF NEEDED FOR CHEST PAIN Discharge Exam Patient feeling much better on 10/02. No issues breathing while exerting herself. Ambulated in the hallway, felt her strength and balance were at baseline. No dyspnea while ambulating. Patient wanted to go home. Instructed her to not drink more water, needs to be on a strict fluid restriction. Review of Systems: Constitutional: No fever, No chills, No sweats, No weight loss, No weakness , No fatigue, No problem reported Eyes: No worsening of vision, No eye pain, No redness, No discharge, No diplopia, No problem reported ENT: No hearing loss, No unusual epistaxis, No nasal symptoms, No sore throat, No tinnitus, No dental problems, No trouble swallowing, No problem reported Respiratory: No cough, No sputum, No wheezing, No shortness of breath, No dyspnea on exertion, No dyspnea at rest, No hemoptysis, No problem reported Cardiovascular: No chest pain, No orthopnea, No PND, No edema, No claudication, No palpitations, No problem reported Abdomen: No pain, No nausea, No vomiting, No diarrhea, No constipation, No GI bleeding, No problem reported Musculoskeletal: No joint pain, No muscle pain, No swelling, No calf pain, No problem reported Genitourinary - Female: No dysuria, No urinary frequency, No urinary urgency , No urinary incontinence, No urinary retention, No hematuria Neurologic: No memory loss, No paralysis, No weakness, No numbness/tingling , No vertigo, No balance problems, No problem reported Psychiatric: No depression symptoms, No anhedonism, No anxiety, No insomnia , No substance abuse, No problem reported Endocrine: No fatigue, No excessive thirst, No excessive urination, No problem reported Hematologic / Lymphatic: No abnormal bleeding/bruising, No clotting problems , No swollen lymph nodes, No night sweats, No problem reported Integumentary: No rash, No itch, No new/changing skin lesions, No color change, No bleeding, No problem reported Physical Exam: General Appearance: WD/WN, no apparent distress Eyes: normal inspection, EOMI, sclerae normal ENT: normal ENT inspection, hearing grossly normal, pharynx normal Neck: supple, no adenopathy, no JVD, trachea midline Respiratory/Chest: chest non-tender, lungs clear, normal breath sounds, no respiratory distress, no accessory muscle use Cardiovascular: no edema, no gallop, no JVD, no murmur, normal peripheral pulses, + irregularly irregular Abdomen / GI: normal bowel sounds, non tender, soft, no organomegaly Extremities: normal inspection, no calf tenderness, normal capillary refill , no pedal edema, normal range of motion, pelvis stable Neurologic/Psychiatric: strategy director II-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 She denies CP or a an acute cough although she does have a chronic cough. Initial evaluation including labs, imaging and exam are consistent with exacerbation of CHF. Additionally, labs display worsening hyponatremia with a sodium of 125. 1) acute on chronic diastolic and systolic heart failure symptoms dramatically improved, although UO is not impressive, likely inaccurate patient admits to urinating more than normal, receiving 3x her normal Lasix dose while hospitalized examines euvolemic, lungs clear Cr stable while on Lasix will d/c back to personal care on original dose of Lasix, needs to not drink more water, she knows now what too much can do fluid restriction established on discharge instructions 2) Hyponatremia - chronic, improved slightly to 131 3) CKD IV - creat is at baseline, 2.0 on day of discharge 4) chronic atrial fibrillation - rate is currently paced - cont B katie Diltiazem, ASA. Her CHADS score is dangerously high, however, there is clear records of discussion between her and her deck worker regarding anticoagulation. It was concluded that she would not be treated. She had been on Coumadin for a period and did not tolerate or comply well with treatment. 5) CAD - cont ASA, statin, B katie 6) DM - episode of hypoglycemia on 10/01 53, she was symptomatic responded well to dextrose no further episodes while admitted Positive urine culture: represents colonization no fever, WBC normal, no dysuria UA showed 1-5 WBC but no nitrites or LE Full code - Heparin prophylaxis Total Time Spent: Greater than 30 minutes This includes examination of the patient, discharge planning, medication reconciliation, and communication with other providers. Discharge Instructions Please refer to the electronic Patient Visit Report (Discharge Instructions) for additional information. Follow-Up Dr. Downs in a week Additional Copies To Deion Downs M.D.
[2017-10-30] MEDS ORDERED: ASPI81TA28 PO (04:00)
== END 2017-10-02 10:46 | disposition home or self-care (01) | DRG 291 ==
LOC: EDBD 14:39 → C.EDC 14:41 → C.2T 18:44 → ENRESERV 18:58
PROVIDERS: ADMIT Internal Medicine; ATTEND Internal Medicine
DX: I13.0 Hypertensive heart and chronic kidney disease with heart failure and stage 1 through stage 4 chronic kidney disease, or unspecified chronic kidney disease (principal); I50.43 Acute on chronic combined systolic (congestive) and diastolic (congestive) heart failure; E87.1 Hypo-osmolality and hyponatremia; N18.4 Chronic kidney disease, stage 4 (severe); R21 Rash and other nonspecific skin eruption; E11.65 Type 2 diabetes mellitus with hyperglycemia; E11.22 Type 2 diabetes mellitus with diabetic chronic kidney disease; E11.649 Type 2 diabetes mellitus with hypoglycemia without coma; R82.79 Other abnormal findings on microbiological examination of urine; I48.2 Chronic atrial fibrillation; K21.9 Gastro-esophageal reflux disease without esophagitis; I27.20 Pulmonary hypertension, unspecified; I25.10 Atherosclerotic heart disease of native coronary artery without angina pectoris; Z51.81 Encounter for therapeutic drug level monitoring; Z79.899 Other long term (current) drug therapy; Z79.4 Long term (current) use of insulin; Z79.82 Long term (current) use of aspirin; Z79.02 Long term (current) use of antithrombotics/antiplatelets; Z95.0 Presence of cardiac pacemaker; Z95.1 Presence of aortocoronary bypass graft; Z87.01 Personal history of pneumonia (recurrent); Z88.8 Allergy status to other drugs, medicaments and biological substances; Z88.0 Allergy status to penicillin; Z88.1 Allergy status to other antibiotic agents; Z88.2 Allergy status to sulfonamides; Z91.018 Allergy to other foods

== ENCOUNTER → 2017-10-10 | Outpatient (CLI) | payer OTHER, MEDICARE ==
[~2017-10-10] MED LIST changes: +ASPI81TA28 PO; +ATOR10TA82 PO; +BUSP5TAB59 PO; +CLOP1TAB15 PO; +CRAN500C2 PO; +CYAN100020 PO; -DILT240C75 PO; +DLTCD/240 PO; +DOCU100C31 PO; +ESCI10TA17 PO; +FRS/40 PO; +GUAI600T49 PO; +INSDGIPEN SQ; +LEVO50TA6 PO; -LORA-741 PO; +LORA10CA2 PO; -LPT10 PO; -LSX40 PO; +METO100T14 PO; +MOME6000 NAE; +NITR0.4S UT; -PLV75 PO; +PRVIN525X NEB; +SYMIN160 INH
[2017-10-10 13:32] LABS: BASO % 0.4 %; BASO ABS # 0.03 K/uL (0-0.2); EOS ABS # 0.31 K/uL (0-0.5); HEMOGLOBIN 11.3 g/dL (12.0-16.0); IG# 0.02 K/uL (0.00-0.02); LYMPH % 16.3 %; LYMPH ABS # 1.27 K/uL (1.2-3.4); MEAN CELL VOLUME 88.4 fL (80-100); MEAN CORPUSCULAR HEMOGLOBIN 28.5 pg (25-34); MEAN CORPUSCULAR HGB CONC 32.3 g/dl (32-36); MEAN PLATELET VOLUME 8.9 fL (7.4-10.4); MONO % 8.7 %; MONO ABS # 0.68 K/uL (0.11-0.59); NEUT % 70.3 %; NEUT ABS # 5.48 K/uL (1.4-6.5); PLATELET COUNT 234 K/uL (130-400); RED CELL DISTRIBUTION WIDTH SD 41.9 fL (36.4-46.3); WHITE BLOOD COUNT 7.79 K/uL (4.8-10.8)
[2017-10-10 14:30] LABS: BLOOD UREA NITROGEN 40 mg/dl (7-18); CALCIUM 8.4 mg/dl (8.5-10.1); CARBON DIOXIDE 22 mmol/L (21-32); CREATININE 2.18 mg/dl (0.60-1.20); GLUCOSE 177 mg/dl (70-99); POTASSIUM 4.7 mmol/L (3.5-5.1); SODIUM 128 mmol/L (136-145)
== END | disposition home or self-care (01) ==
LOC: C.LABPBG 09:18
PROVIDERS: ATTEND Family Medicine
DX: E11.9 Type 2 diabetes mellitus without complications (principal); R53.1 Weakness; N39.0 Urinary tract infection, site not specified

== ENCOUNTER 2017-10-30 10:52 | Inpatient (IN) | payer OTHER, MEDICARE ==
[~2017-10-30] VITALS: Ht 160 cm; Wt 71.1 kg
[~2017-10-30 10:52] MED LIST changes: -ATOR10TA82 PO; -BUSP5TAB59 PO; -CLOP1TAB15 PO; -CRAN500C2 PO; -CYAN100020 PO; -DOCU100C31 PO; -ESCI10TA17 PO; -FRS/40 PO; -GUAI600T49 PO; -INSDGIPEN SQ; -LEVO50TA6 PO; -LNX125 PO; -LORA10CA2 PO; -METO100T14 PO; -MOME6000 NAE; -NITR0.4S UT; -PRVIN525X NEB; -SYMIN160 INH
--- NOTE | 2017-10-30 11:12 | EMERGENCY ROOM VISIT NOTE ---
History Report prepared by Juan: Yessi Bhakta Under the Supervision of: Dr. Kvng Billings M.D. First contact with patient: 10:56 Stated Complaint: REFERRED BY PCP History of Present Illness The patient is an 87 year old female who presents to the Emergency Room with complaints of persistent generalized weakness that started several days ago. The patient reports she has difficulty walking due to her weakness. The patient notes she has increased coughing and shortness of breath when laying down. The patient had labs done yesterday and her PCP called this morning to inform her labs were abnormal. She denies chest pain, fever, chills, melena, or back pain. She also complains of bilateral leg swelling. The patient has a history of kidney failure and heart failure. She notes she is on Plavix and Aspirin. The patient's outpatient lab work showed a Sodium of 123, BUN 49, and Creatine of 2.5. When she was discharged from the hospital, she had a sodium of 128, BUN 40, and creatine of 2.2. Source of History: patient Onset: several days ago Position: other (generalized) Timing: other (persistent) Modifying Factors (Worsening): other (laying flat) Associated Symptoms: + cough, + SOB, No fevers, No chills, No chest pain, No back pain, No melena Review of Systems See HPI for pertinent positives & negatives. A total of 10 systems reviewed and were otherwise negative. Past Medical & Surgical Medical Problems: (1) Acute bronchitis with bronchiectasis (2) Acute exacerbation of CHF (congestive heart failure) (3) Acute on chronic systolic (congestive) heart failure (4) Atrial fibrillation (5) CHF (congestive heart failure) (6) CKD (chronic kidney disease) (7) CKD (chronic kidney disease), stage III (8) Cough (9) DM (diabetes mellitus) (10) GERD (gastroesophageal reflux disease) (11) Hypertension (12) Hyponatremia (13) Moderate to severe pulmonary hypertension (14) Pacemaker (15) PNA (pneumonia) (16) Renal failure (17) SBO (small bowel obstruction) (18) Severe mitral regurgitation Surgical Problems: (1) History of cardiac cath (2) S/P quintuple vessel bypass Old medical records were reviewed. Nurse's notes were reviewed and I agree with. Family History Omitted secondary to age Social History Smoking Status: Never Smoker Alcohol Use: none Drug Use: none Marital Status: Housing Status: other Occupation Status: retired Current/Historical Medications Scheduled Aspirin (Aspirin Ec), 81 MG PO QAM Atorvastatin (Lipitor), 10 MG PO DAILY Budesonide/Formoterol Fumarate (Symbicort 160/4.5 Inhaler ), 2 PUFFS INH BID Calcitriol (Rocaltrol Cap), 0.25 MCG PO Q2D Clopidogrel (Plavix), 75 MG PO DAILY Cranberry (Vaccinium Macrocarp (Cranberry), 1,000 MG PO BID Cyanocobalamin (Vitamin B12), 1,000 MCG PO QAM Digoxin (Digoxin), 0.125 MG PO 3XWK Diltiazem Hcl Extended Release (Diltiazem Hcl Er), 240 MG PO DAILY Ergocalciferol (Vitamin D 41235 Unit), 50,000 UNIT PO WK Escitalopram (Lexapro), 5 MG PO DAILY Furosemide (Lasix), 40 MG PO DAILY Insulin Glargine (Lantus Solostar), 20 UNITS SQ QAM Insulin Glargine (Lantus Solostar), 10 UNITS SQ QPM Lactulose (Chronulac), 15 ML PO QAM Lansoprazole (Prevacid), 15 MG PO BID Levothyroxine Sodium (Levothyroxine Sodium), 50 MCG PO QAM Loratadine (Claritin), 10 MG PO QAM Magnesium Oxide (Mg Supplement (Magnesium Oxide), 500 MG PO DAILY Metoprolol Tartrate (Lopressor) (Lopressor), 100 MG PO BID Mometasone Furoate (Nasal) (Mometasone Furoate), 2 SPRAYS ANTOINE DAILY Polyethylene Glycol 3350 (Miralax), 17 GM PO UD Scheduled PRN Albuterol Sulf (Albuterol Sulfate), 2.5 MG NEB Q6H PRN for COUGH/SOB Benzonatate (Tessalon Perles), 100 MG PO TID PRN for Cough Buspirone Hcl (Buspirone Hcl), 5 MG PO BID PRN for Anxiety Docusate Sodium (Docusate Sodium), 100 MG PO BID PRN for Constipation Guaifenesin (Mucus Relief Er), 600 MG PO BID PRN for CONGESTION Nitroglycerin (Nitrostat), 0.4 MG UT UD PRN for Chest Pain Allergies Coded Allergies: Fenofibrate (Verified Allergy, Intermediate, rash, 10/30/17) Amoxicillin (Verified Allergy, Unknown, UNKNOWN, 10/30/17) Calcium Carbonate (Verified Allergy, Unknown, ., 10/30/17) Ciprofloxacin (Verified Allergy, Unknown, ., 10/30/17) Diphenhydramine (Verified Allergy, Unknown, ., 10/30/17) Fexofenadine (Verified Allergy, Unknown, UNKNOWN, 10/30/17) Irbesartan (Verified Allergy, Unknown, UNKNOWN, 10/30/17) Lidocaine (Verified Allergy, Unknown, ., 10/30/17) Niacin (Verified Allergy, Unknown, RASH, 10/30/17) Nystatin (Verified Allergy, Unknown, ., 10/30/17) Penicillins (Verified Allergy, Unknown, UNKNOWN, 10/30/17) Sulfa Antibiotics (Verified Allergy, Unknown, UNKNOWN, 10/30/17) Flumazenil (Verified Adverse Reaction, Intermediate, DELIRIUM, 10/30/17) anxious, increased heart rate, increased blood pressure Tomato (Verified Adverse Reaction, Unknown, GI SYMPTOMS, 10/30/17) Physical Exam Vital Signs Date Time Temp Pulse Resp B/P (MAP) Pulse Ox O2 Delivery O2 Flow Rate FiO2 10/30/17 13:21 74 10/30/17 13:13 72 22 150/78 97 Room Air 10/30/17 12:33 70 24 128/72 97 Room Air 10/30/17 11:09 74 22 133/69 97 Room Air 10/30/17 11:03 74 10/30/17 10:52 36.8 68 20 146/66 94 Room Air 10/30/17 10:52 97 Room Air Physical Exam General: Chronically-ill appearing older female in no acute distress. HEENT: Normal cephalic atraumatic. Pupils are equal round and reactive to light. Extraocular movements are intact. Oropharynx is pink with moist mucous membranes. No swelling of the mouth lips or tongue. Neck: Supple with a midline trachea. No meningeal signs or stiffness, no JVD or bruits. No Stridor. Chest: Clear to auscultation bilaterally. No wheezes or rhonchi. No increased work of breathing. Heart: regular rate and rhythm. Abdomen: Soft nontender, nondistended without rebound guarding or rigidity. Extremities: No cyanosis or clubbing. No calf tenderness or assymetry. 1+ pitting edema bilateral lower extremities. Spine/Back. Non tender to palpation. No CVA tenderness Skin: Good turgor without rashes. Neurologic exam: Cranial nerves two through 12 are intact. Motor and sensation are intact and symmetrical throughout. Medical Decision & Procedures ER Provider Diagnostic Interpretation: Radiology results as stated below per my review and radiologist interpretation: CHEST ONE VIEW PORTABLE CLINICAL HISTORY: 87 years-old Female presenting with CHEST PAIN. TECHNIQUE: Portable upright AP view of the chest was obtained. COMPARISON: 09/30/2017. FINDINGS: Left subclavian pacer with leads to the right atrium and right ventricular apex. Atherosclerosis of aortic arch. Median sternotomy wires and bypass graft rings as well as mediastinal surgical clips noted. Moderate enlargement of the cardiac silhouette unchanged. Persistent pulmonary vascular prominence. Small right and trace left pleural effusions may be present. Lungs are otherwise clear. No pneumothorax. Degenerative changes of the right shoulder. Upper abdomen normal. IMPRESSION: 1. Cardiomegaly with volume overload. No coreen pulmonary edema. 2. Small right and trace left pleural effusions. Electronically signed by: Deion Hernandez M.D. 10/30/2017 11:22 AM Dictated Date/Time: 10/30/2017 11:20 AM Laboratory Results 10/30/17 11:27 Red Blood Count 3.95, Mean Corpuscular Volume 85.6, Mean Corpuscular Hemoglobin 28.9, Mean Corpuscular Hemoglobin Concent 33.7, Mean Platelet Volume 8.6, Neutrophils (%) (Auto) 75.9, Lymphocytes (%) (Auto) 14.8, Monocytes (%) (Auto) 7.8, Eosinophils (%) (Auto) 1.1, Basophils (%) (Auto) 0.2, Neutrophils # (Auto) 6.29, Lymphocytes # (Auto) 1.23, Monocytes # (Auto) 0.65, Eosinophils # (Auto) 0.09, Basophils # (Auto) 0.02 Test 10/30/17 11:20 10/30/17 11:27 10/30/17 12:27 Osmolality 272 mOsm/kg (280-300) Random Cortisol 26.18 mcg/dl White Blood Count 8.30 K/uL (4.8-10.8) Red Blood Count 3.95 M/uL (4.2-5.4) Hemoglobin 11.4 g/dL (12.0-16.0) Hematocrit 33.8 % (37-47) Mean Corpuscular Volume 85.6 fL (80-100) Mean Corpuscular Hemoglobin 28.9 pg (25-34) Mean Corpuscular Hemoglobin Concent 33.7 g/dl (32-36) Platelet Count 225 K/uL (130-400) Mean Platelet Volume 8.6 fL (7.4-10.4) Neutrophils (%) (Auto) 75.9 % Lymphocytes (%) (Auto) 14.8 % Monocytes (%) (Auto) 7.8 % Eosinophils (%) (Auto) 1.1 % Basophils (%) (Auto) 0.2 % Neutrophils # (Auto) 6.29 K/uL (1.4-6.5) Lymphocytes # (Auto) 1.23 K/uL (1.2-3.4) Monocytes # (Auto) 0.65 K/uL (0.11-0.59) Eosinophils # (Auto) 0.09 K/uL (0-0.5) Basophils # (Auto) 0.02 K/uL (0-0.2) RDW Standard Deviation 40.2 fL (36.4-46.3) RDW Coefficient of Variation 12.8 % (11.5-14.5) Immature Granulocyte % (Auto) 0.2 % Immature Granulocyte # (Auto) 0.02 K/uL (0.00-0.02) Prothrombin Time 10.8 SECONDS (9.0-12.0) Prothromb Time International Ratio 1.0 (0.9-1.1) Activated Partial Thromboplast Time 27.5 SECONDS (21.0-31.0) Partial Thromboplastin Ratio 1.1 Total Bilirubin 0.6 mg/dl (0.2-1) Direct Bilirubin 0.2 mg/dl (0-0.2) Aspartate Amino Transf (AST/SGOT) 23 U/L (15-37) Alanine Aminotransferase (ALT/SGPT) 27 U/L (12-78) Alkaline Phosphatase 116 U/L (45-117) Troponin I < 0.015 ng/ml (0-0.045) Pro-B-Type Natriuretic Peptide > 54502 pg/ml (0-1800) Total Protein 6.4 gm/dl (6.4-8.2) Albumin 3.3 gm/dl (3.4-5.0) Lipase 179 U/L (73-393) Urine Color YELLOW Urine Appearance CLEAR (CLEAR) Urine pH 5.0 (4.5-7.5) Urine Specific [place] 1.009 (1.000-1.030) Urine Protein 2+ (NEG) Urine Glucose (UA) NEG (NEG) Urine Ketones NEG (NEG) Urine Occult Blood NEG (NEG) Urine Nitrite NEG (NEG) Urine Bilirubin NEG (NEG) Urine Urobilinogen NEG (NEG) Urine Leukocyte Esterase NEG (NEG) Urine WBC (Auto) 0 /hpf (0-5) Urine RBC (Auto) 0-4 /hpf (0-4) Urine Hyaline Casts (Auto) 0 /lpf (0-5) Urine Epithelial Cells (Auto) 0-5 /lpf (0-5) Urine Bacteria (Auto) NEG (NEG) Urine Random Total Protein 118.0 mg/dl (0-11.9) Urine Random Sodium 30 mEq/L Urine Random Urea Nitrogen 298 mg/dl Laboratory studies as stated above per my review. ECG Per My Interpretation Indication: weakness Rate (beats per minute): 73 Rhythm: other (ventricular paced) Findings: PVC (occassional), no acute ischemic change Comparison ECG Date: 09/30/17 Change: no significant change ED Course 1056: Past medical records reviewed. The patient was evaluated in room C8, and a complete history and physical examination were performed. 1223: Ordered Sodium Chloride 1000 ml @ 100 mls/hr IV, Sodium Chloride 250 ml @ 999 mls/hr IV. 1225: I discussed the patient's case with Dr. Paul, [facility] Hospitalist. She will evaluate the patient for further management. Medical Decision Differential Diagnosis: CHF, dehydration, electrolyte or metabolic abnormality, or infection. This patient comes in sent up by regular doctor for abnormal labs she was seen by her doctor yesterday after feeling weak. She had decreased urine output. She has peripheral edema that is gotten worse. Her sodium yesterday was 123 and her BUN and creatinine are up compared to baseline. Her BNP is also extremely high. She just feels generally weak. she has no focal neurologic deficits. IV access established, EKG,chest x-ray, multiple blood testing was obtained. She has cardiomegaly but no overt CHF. Her EKG does not show any acute ischemic changes or ectopy. Her sodium here was 120. Her BUN and creatinine are also chronically elevated. I do think she is in congestive heart failure mostly left-sided but she is also significantly hyponatremic. I do think she needs to be admitted for further inpatient treatment and evaluation. Medication Reconcilliation Current Medication List: was personally reviewed by me Blood Pressure Screening Patient's blood pressure: Normal blood pressure Consults Time Called: 1220 Consulting Physician: Dr. Paul [facility] Hospitalist Returned Call: 1225 I discussed the patient's case with Dr. Paul [facility] Hospitalist. She will evaluate the patient for further management. Impression Primary Impression: Weakness Additional Impressions: Hyponatremia CHF (congestive heart failure) Scribe Attestation The scribe's documentation has been prepared under my direction and personally reviewed by me in its entirety. I confirm that the note above accurately reflects all work, treatment, procedures, and medical decision making performed by me. Departure Information Dispostion Being Evaluated By Hospitalist Referrals Deion Downs M.D. (PCP) Problem Qualifiers
--- NOTE | 2017-10-30 11:24 | DIAGNOSTIC IMAGING REPORT ---
CHEST ONE VIEW PORTABLE CLINICAL HISTORY: 87 years-old Female presenting with CHEST PAIN. TECHNIQUE: Portable upright AP view of the chest was obtained. COMPARISON: 09/30/2017. FINDINGS: Left subclavian pacer with leads to the right atrium and right ventricular apex. Atherosclerosis of aortic arch. Median sternotomy wires and bypass graft rings as well as mediastinal surgical clips noted. Moderate enlargement of the cardiac silhouette unchanged. Persistent pulmonary vascular prominence. Small right and trace left pleural effusions may be present. Lungs are otherwise clear. No pneumothorax. Degenerative changes of the right shoulder. Upper abdomen normal. IMPRESSION: 1. Cardiomegaly with volume overload. No coreen pulmonary edema. 2. Small right and trace left pleural effusions. Electronically signed by: Deion Hernandez M.D. 10/30/2017 11:22 AM Dictated Date/Time: 10/30/2017 11:20 AM
[2017-10-30 11:44] LABS: BASO % 0.2 %; BASO ABS # 0.02 K/uL (0-0.2); EOS % 1.1 %; EOS ABS # 0.09 K/uL (0-0.5); HEMATOCRIT 33.8 % (37-47); HEMOGLOBIN 11.4 g/dL (12.0-16.0); IG# 0.02 K/uL (0.00-0.02); LYMPH % 14.8 %; LYMPH ABS # 1.23 K/uL (1.2-3.4); MEAN CELL VOLUME 85.6 fL (80-100); MEAN CORPUSCULAR HEMOGLOBIN 28.9 pg (25-34); MEAN CORPUSCULAR HGB CONC 33.7 g/dl (32-36); MEAN PLATELET VOLUME 8.6 fL (7.4-10.4); MONO % 7.8 %; MONO ABS # 0.65 K/uL (0.11-0.59); NEUT % 75.9 %; NEUT ABS # 6.29 K/uL (1.4-6.5); PLATELET COUNT 225 K/uL (130-400); RED CELL DISTRIBUTION WIDTH CV 12.8 % (11.5-14.5); RED CELL DISTRIBUTION WIDTH SD 40.2 fL (36.4-46.3)
[2017-10-30 11:51] LABS: PTT PATIENT 27.5 SECONDS (21.0-31.0)
[2017-10-30 12:00] LABS: ALBUMIN 3.3 gm/dl (3.4-5.0); ALT/SGPT 27 U/L (12-78); AST/SGOT 23 U/L (15-37); BLOOD UREA NITROGEN 53 mg/dl (7-18); CALCIUM 8.4 mg/dl (8.5-10.1); CARBON DIOXIDE 26 mmol/L (21-32); CREATININE 2.32 mg/dl (0.60-1.20); GLUCOSE 196 mg/dl (70-99); LIPASE 179 U/L (73-393); POTASSIUM 5.1 mmol/L (3.5-5.1); SODIUM 120 mmol/L (136-145)
[2017-10-30 12:07] LABS: ALKALINE PHOSPHATASE 116 U/L (45-117); TOTAL PROTEIN 6.4 gm/dl (6.4-8.2)
[2017-10-30] MEDS ORDERED: SODIUM CHLORIDE 0.9% 1000ML 250 ML IV STA (12:23)
[2017-10-30] MEDS ORDERED: SODIUM CHLORIDE 0.9% 1000ML 1,000 ML IV STA (12:23)
[2017-10-30] MEDS ORDERED: LANS15CA15 PO (13:10)
[2017-10-30] MEDS ORDERED: MAGN250T16 PO (13:10)
[2017-10-30] MEDS ORDERED: DILT240C74 PO (13:10)
[2017-10-30] MEDS ORDERED: ERGO500037 PO (13:11)
[2017-10-30] MEDS ORDERED: CALC0.2510 PO (13:11)
[2017-10-30] MEDS ORDERED: LACT10SO3 PO (13:11)
[2017-10-30] MEDS ORDERED: POLY335019 PO (13:11)
[2017-10-30] MEDS ORDERED: BENZ100C84 PO (13:11)
[2017-10-30] MEDS ORDERED: ESCI10TA17 PO (13:19)
--- NOTE | 2017-10-30 13:21 | History and Physical ---
History & Physical Date & Time of Service: Oct 30, 2017 at 13:21 Chief Complaint: Referred By Pcp Primary Care Physician: Curly Guido M.D. History of Present Illness Source: patient Patient is an 87yo female with multiple medical problems, recently admitted September 30 - October 02 for exacerbation of acute on chronic diastolic and systolic heart failure and hyponatremia, sodium 125 at that time. She states that she has had persistent and progressive shortness of breath since discharge from the hospital. Chronic dry cough that has worsened over the last few days, now productive for clear/yellow sputum, decreased exercise tolerance secondary to dyspnea on exertion and diffuse weakness. Patient states she becomes short of breath after taking 10-12 steps. She reports increased bilateral LE edema as well as swelling of her hands and around her eyes and a 2-3# weight gain over the last few days. Stable orthopnea. She has been taking extra Lasix for the last 2 days (I assume 120mg/day over the last 2 days as her standing dose is 40mg po BID and she reports taking an extra pill). She reports compliance with a low sodium/fluid restriction diet. Additionally she is complaining of poor appetite and decreased oral intake. She states that the only thing she is able to tolerate is tea, toast and oatmeal. She also reports inability to urinate. She states that she feels the sensation to urinate but is unable to pass urine sometimes. This worsened after taking a medication for anxiety, unsure of the name. Also reports diarrhea x 2 episodes yesterday. Liquid, non-bloody/non-mucoid. 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%, grade II diastolic dysfunction 2) DM II 3) Chronic AF 4) Pacemaker 5) CKD IV - baseline creat 2-2.5 6) SBO due to incarcerated hernia 7) CAD - 5V CABG 8) Chronic hyponatremia 130 9) Esophageal candidiasis Surgical: 1) Incarcerated hernia surgery 2016 2) Hysterectomy 3) Cholecystectomy 4) Quintuple bypass 5) Appendectomy Family History FH: ALS (amyotrophic lateral sclerosis) FH: diabetes mellitus Omitted secondary to age Social History Smoking Status: Never Smoker Alcohol Use: none Drug Use: none Marital Status: Housing status: assisted living Occupational Status: retired Allergies Coded Allergies: Fenofibrate (Verified Allergy, Intermediate, rash, 10/30/17) Amoxicillin (Verified Allergy, Unknown, UNKNOWN, 10/30/17) Calcium Carbonate (Verified Allergy, Unknown, ., 10/30/17) Ciprofloxacin (Verified Allergy, Unknown, ., 10/30/17) Diphenhydramine (Verified Allergy, Unknown, ., 10/30/17) Fexofenadine (Verified Allergy, Unknown, UNKNOWN, 10/30/17) Irbesartan (Verified Allergy, Unknown, UNKNOWN, 10/30/17) Lidocaine (Verified Allergy, Unknown, ., 10/30/17) Niacin (Verified Allergy, Unknown, RASH, 10/30/17) Nystatin (Verified Allergy, Unknown, ., 10/30/17) Penicillins (Verified Allergy, Unknown, UNKNOWN, 10/30/17) Sulfa Antibiotics (Verified Allergy, Unknown, UNKNOWN, 10/30/17) Flumazenil (Verified Adverse Reaction, Intermediate, DELIRIUM, 10/30/17) anxious, increased heart rate, increased blood pressure Tomato (Verified Adverse Reaction, Unknown, GI SYMPTOMS, 10/30/17) Home Medications Scheduled Aspirin (Aspirin Ec), 81 MG PO QAM Atorvastatin (Lipitor), 10 MG PO DAILY Budesonide/Formoterol Fumarate (Symbicort 160/4.5 Inhaler ), 2 PUFFS INH BID Calcitriol (Rocaltrol Cap), 0.25 MCG PO Q2D Clopidogrel (Plavix), 75 MG PO DAILY Cranberry (Vaccinium Macrocarp (Cranberry), 1,000 MG PO BID Cyanocobalamin (Vitamin B12), 1,000 MCG PO QAM Digoxin (Digoxin), 0.125 MG PO 3XWK Diltiazem Hcl Extended Release (Diltiazem Hcl Er), 240 MG PO DAILY Ergocalciferol (Vitamin D 99296 Unit), 50,000 UNIT PO WK Escitalopram (Lexapro), 5 MG PO DAILY Furosemide (Lasix), 40 MG PO DAILY Insulin Glargine (Lantus Solostar), 20 UNITS SQ QAM Insulin Glargine (Lantus Solostar), 10 UNITS SQ QPM Lactulose (Chronulac), 15 ML PO QAM Lansoprazole (Prevacid), 15 MG PO BID Levothyroxine Sodium (Levothyroxine Sodium), 50 MCG PO QAM Loratadine (Claritin), 10 MG PO QAM Magnesium Oxide (Mg Supplement (Magnesium Oxide), 500 MG PO DAILY Metoprolol Tartrate (Lopressor) (Lopressor), 100 MG PO BID Mometasone Furoate (Nasal) (Mometasone Furoate), 2 SPRAYS ANTOINE DAILY Polyethylene Glycol 3350 (Miralax), 17 GM PO UD Scheduled PRN Albuterol Sulf (Albuterol Sulfate), 2.5 MG NEB Q6H PRN for COUGH/SOB Benzonatate (Tessalon Perles), 100 MG PO TID PRN for Cough Buspirone Hcl (Buspirone Hcl), 5 MG PO BID PRN for Anxiety Docusate Sodium (Docusate Sodium), 100 MG PO BID PRN for Constipation Guaifenesin (Mucus Relief Er), 600 MG PO BID PRN for CONGESTION Nitroglycerin (Nitrostat), 0.4 MG UT UD PRN for Chest Pain Review of Systems Per HPI. Remainder of 10 point ROS negative Constitutional: + chills, No fever Respiratory: No wheezing Cardiovascular: No chest pain, No palpitations Abdomen: No pain, No nausea, No vomiting, No constipation Genitourinary - Female: No dysuria, No urinary frequency, No urinary urgency Neurologic: + weakness Psychiatric: + anxiety Endocrine: + fatigue, No excessive thirst Hematologic / Lymphatic: No abnormal bleeding/bruising Integumentary: No rash Physical Exam Vital Signs Date Time Temp Pulse Resp B/P (MAP) Pulse Ox O2 Delivery O2 Flow Rate FiO2 10/30/17 13:13 72 22 150/78 97 Room Air 10/30/17 12:33 70 24 128/72 97 Room Air 10/30/17 11:09 74 22 133/69 97 Room Air 10/30/17 11:03 74 10/30/17 10:52 36.8 68 20 146/66 94 Room Air 10/30/17 10:52 97 Room Air General: patient resting comfortably sitting upright in bed, NAD, AA&O x 4, anxious in appearance Skin: warm, dry, intact, no rashes or lesions, well healed sternotomy scar HEENT: NC/AT, PERRL, EOMI, anicteric sclera, conjunctiva without injection, no periortbital edema appreciated, nares patent, moist mucus membranes, no oropharyngeal lesions, neck supple, trachea midline, no thyromegaly, no LAD. + JVD to the angle of the jaw noted on the right Heart: +S1/S2, regular, distant heat sounds, no m/r/g Lungs: equal air entry bilaterally, diminished breath sounds in the bases bilaterally, +crackles in mid lung villalobos Abdomen: soft, NT/ND, no masses/organomegaly/ascites Extremities: warm, well perfused, 3+ pitting edema of bilateral LE, R>L, small amount of edema of the hands Neuro: nonfocal Diagnostics Laboratory Results Results Past 24 Hours Test 10/30/17 11:27 10/30/17 12:27 Range/Units White Blood Count 8.30 4.8-10.8 K/uL Red Blood Count 3.95 4.2-5.4 M/uL Hemoglobin 11.4 12.0-16.0 g/dL Hematocrit 33.8 37-47 % Mean Corpuscular Volume 85.6 80-100 fL Mean Corpuscular Hemoglobin 28.9 25-34 pg Mean Corpuscular Hemoglobin Concent 33.7 32-36 g/dl Platelet Count 225 130-400 K/uL Mean Platelet Volume 8.6 7.4-10.4 fL Neutrophils (%) (Auto) 75.9 % Lymphocytes (%) (Auto) 14.8 % Monocytes (%) (Auto) 7.8 % Eosinophils (%) (Auto) 1.1 % Basophils (%) (Auto) 0.2 % Neutrophils # (Auto) 6.29 1.4-6.5 K/uL Lymphocytes # (Auto) 1.23 1.2-3.4 K/uL Monocytes # (Auto) 0.65 0.11-0.59 K/uL Eosinophils # (Auto) 0.09 0-0.5 K/uL Basophils # (Auto) 0.02 0-0.2 K/uL RDW Standard Deviation 40.2 36.4-46.3 fL RDW Coefficient of Variation 12.8 11.5-14.5 % Immature Granulocyte % (Auto) 0.2 % Immature Granulocyte # (Auto) 0.02 0.00-0.02 K/uL Prothrombin Time 10.8 9.0-12.0 SECONDS Prothromb Time International Ratio 1.0 0.9-1.1 Activated Partial Thromboplast Time 27.5 21.0-31.0 SECONDS Partial Thromboplastin Ratio 1.1 Sodium Level 120 136-145 mmol/L Potassium Level 5.1 3.5-5.1 mmol/L Chloride Level 87 98-107 mmol/L Carbon Dioxide Level 26 21-32 mmol/L Anion Gap 7.0 3-11 mmol/L Blood Urea Nitrogen 53 7-18 mg/dl Creatinine 2.32 0.60-1.20 mg/dl Estimated GFR () 21.1 Estimated GFR (Non- 18.2 BUN/Creatinine Ratio 22.8 10-20 Random Glucose 196 70-99 mg/dl Calcium Level 8.4 8.5-10.1 mg/dl Total Bilirubin 0.6 0.2-1 mg/dl Direct Bilirubin 0.2 0-0.2 mg/dl Aspartate Amino Transf (AST/SGOT) 23 15-37 U/L Alanine Aminotransferase (ALT/SGPT) 27 12-78 U/L Alkaline Phosphatase 116 45-117 U/L Troponin I < 0.015 0-0.045 ng/ml Pro-B-Type Natriuretic Peptide > 50947 0-1800 pg/ml Total Protein 6.4 6.4-8.2 gm/dl Albumin 3.3 3.4-5.0 gm/dl Lipase 179 73-393 U/L Urine Color YELLOW Urine Appearance CLEAR CLEAR Urine pH 5.0 4.5-7.5 Urine Specific [place] 1.009 1.000-1.030 Urine Protein 2+ NEG Urine Glucose (UA) NEG NEG Urine Ketones NEG NEG Urine Occult Blood NEG NEG Urine Nitrite NEG NEG Urine Bilirubin NEG NEG Urine Urobilinogen NEG NEG Urine Leukocyte Esterase NEG NEG Urine WBC (Auto) 0 0-5 /hpf Urine RBC (Auto) 0-4 0-4 /hpf Urine Hyaline Casts (Auto) 1-5 0-5 /lpf Urine Epithelial Cells (Auto) 0-5 0-5 /lpf Urine Bacteria (Auto) NEG NEG Microbiology Results 10/30/17 Urine Culture, Received Pending Diagnostic Radiology CHEST ONE VIEW PORTABLE CLINICAL HISTORY: 87 years-old Female presenting with CHEST PAIN. TECHNIQUE: Portable upright AP view of the chest was obtained. COMPARISON: 09/30/2017. FINDINGS: Left subclavian pacer with leads to the right atrium and right ventricular apex. Atherosclerosis of aortic arch. Median sternotomy wires and bypass graft rings as well as mediastinal surgical clips noted. Moderate enlargement of the cardiac silhouette unchanged. Persistent pulmonary vascular prominence. Small right and trace left pleural effusions may be present. Lungs are otherwise clear. No pneumothorax. Degenerative changes of the right shoulder. Upper abdomen normal. IMPRESSION: 1. Cardiomegaly with volume overload. No coreen pulmonary edema. 2. Small right and trace left pleural effusions. Electronically signed by: Deion Hernandez M.D. 10/30/2017 11:22 AM EKG V-paced, no acute evidence of ischemia Impression Assessment and Plan 87yo female with multiple medical problems sent from personal skilled nursing with complaints of diffuse weakness, SAMUELS and decreased exercise tolerance as well as progressive shortness of breath 1. Hyponatremia - Eg=333 at present. She has chronic hyponatremia with baseline in the low 130's. She has had hyponatremia in the past with acute exacerbations of CHF. Suspect multifactorial cause, hypervolemic hyponatremia in setting of volume overload as well as low solute intake in patient that only eats "tea and toast". Prior workup revealed normal TSH of 1.73, normal T4 of 1.09. I expect Na to improve with fluid restriction and diuresis, however, may be a candidate for a vaptan. -Check urine and serum osmolality -Check urine sodium -Check random cortisol - Consider Nephrology consultation 2. Weakness - most likely secondary to #1 as well as deconditioning -Will treat medically, optimize electrolytes and fluid balance, encourage PO intake and nutrition -PT/OT evaluation 3. KYLEIGH on CKD - Baseline Cr of 2. BUN=53, Cr=2.52. Possibly secondary to poor perfusion in setting of CHF exacerbation vs obstructive uropathy. Patient states that she is unable to pass urine at times. Electrolytes and metabolic profile WNL -Diuresis with Lasix 80mg IV x 1 now -Closely monitor I/O, BUN/Cr and electrolytes -BMP q 12 hours -Place Vyas catheter for strict I/Os -Check spot urine protein and cr (+2+ on UA, losses may also be contributing to her edema) -Consider Urology referral as outpatient for possible urinary retention 4. Atrial fibrillation, chronic - rate controlled, pacemaker in place. Not on anticoagulation -Continue Digoxin, Diltiazem and Lopressor -High CHADS-2 score, however clear records of discussion between her and her market intelligence consultant regarding anticoagulation. It was concluded that she would not be treated. She had been on Coumadin for a period and did not tolerate or comply well with treatment. 5. Acute on chronic diastolic and systolic heart failure - SOB, elevated BNP, clinical evidence of failure -Lasix 80mg IV x 1 now, monitor response -Fluid and sodium restriction -Daily weights -Continue cardiac medications, Lopressor, Digoxin 6. CAD - stable, no evidence of ischemia -Continue ASA, Plavix, Lopressor, Lipitor 7. Diabetes - blood sugar 196 at present -Lantus 10u BID -Novolog SS -Continue to monitor 8. Hypothyroidism - stable, chronic -Continue Synthroid 9. Depression/Anxiety - stable, chronic -Continue Celexa 5mg po daily -Avoid anticholinergic agents given possibility of urinary retention 10. F/E/N - Diuresis as above, goal negative 1L/24 hours. Monitor electrolytes and replete as needed, BID PRP, Continue Magnesium supplementation , DM/Low Na diet with fluid restriction, ground with aspiration precautions as patient reports difficulty swallowing at times. 11. Ppx - Heparin TID. Prevacid 12. Code - DNR per discussion with patient 13. Dispo - Observation to medical floor Resuscitation Status DNR VTE Prophylaxis Will order VTE Prophylaxis: Yes
[2017-10-30] MEDS ORDERED: GLUCAGON FOR INJ 1 MG VIAL SQ PRN (14:00)
[2017-10-30] MEDS ORDERED: ALBUTEROL 0.5% NEB SOLN 2.5 MG/0.5 ML VIAL INH PRN (14:00)
[2017-10-30] MEDS ORDERED: ACETAMINOPHEN 325 MG TAB PO PRN (14:00)
[2017-10-30] MEDS ORDERED: GLUCOSE 40% GEL 15 GM TUBE PO PRN (14:00)
[2017-10-30] MEDS ORDERED: CARBOHYDRATES FOR HYPOGLYCEMIA PO PRN (14:00)
[2017-10-30] MEDS ORDERED: DEXTROSE 50% 50 ML SYR IV PRN (14:00)
[2017-10-30] MEDS ORDERED: ONDANSETRON INJ 2 MG/ML 2 ML VIAL IV PRN (14:00)
[2017-10-30] MEDS ORDERED: DOCUSATE SODIUM 100 MG CAP PO PRN (14:00)
[2017-10-30] MEDS ORDERED: FUROSEMIDE INJ 40 MG in SYRINGE 0 ML IV ONE (14:00)
[2017-10-30] MEDS ORDERED: GLUCOSE 10 TABS/TUBE PO PRN (14:00)
[2017-10-30] MEDS ORDERED: SYMIN160 INH (14:32)
[2017-10-30] MEDS ORDERED: MOME6000 NAE (14:32)
[2017-10-30] MEDS ORDERED: INSDGIPEN SQ ×2 (14:32)
[2017-10-30] MEDS ORDERED: FUROSEMIDE INJ 80 MG in SYRINGE 0 ML IV STA (14:57)
[2017-10-30] MEDS ORDERED: IV FLUIDS COMPLETED PRN (15:00)
[2017-10-30] MEDS ORDERED: FUROSEMIDE 40 MG/4 ML VIAL ONE (15:05)
[2017-10-30 15:37] VITALS: BP 120/76; PULSE 70; TEMP 37; O2SAT 96; BMI 26.6
[2017-10-30 15:46] LABS: BLOOD UREA NITROGEN 47 mg/dl (7-18); CALCIUM 7.9 mg/dl (8.5-10.1); CARBON DIOXIDE 26 mmol/L (21-32); CREATININE 2.19 mg/dl (0.60-1.20); GLUCOSE 111 mg/dl (70-99); PHOSPHORUS 3.8 mg/dl (2.5-4.9); POTASSIUM 4.7 mmol/L (3.5-5.1); SODIUM 121 mmol/L (136-145)
[2017-10-30] MEDS ORDERED: FRS/40 PO (17:16)
[2017-10-30] MEDS ORDERED: ATOR10TA82 PO (17:32)
[2017-10-30] MEDS ORDERED: CLOP1TAB15 PO (17:34)
[2017-10-30] MEDS ORDERED: BUSP5TAB59 PO (17:34)
[2017-10-30] MEDS ORDERED: LNX125 PO (17:36)
[2017-10-30] MEDS ORDERED: GUAI600T49 PO (17:40)
[2017-10-30] MEDS ORDERED: DOCU100C31 PO (17:41)
[2017-10-30] MEDS ORDERED: PRVIN525X NEB (17:41)
[2017-10-30] MEDS ORDERED: LEVO50TA6 PO (17:41)
[2017-10-30] MEDS ORDERED: METO100T14 PO (17:41)
[2017-10-30] MEDS ORDERED: CRAN500C2 PO (17:45)
[2017-10-30] MEDS ORDERED: NITR0.4S UT (17:52)
[2017-10-30 18:03] VITALS: PULSE 70; O2SAT 95
[2017-10-30] MEDS: DIGOXIN 0.125 MG TAB PO SCH (18:05)
[2017-10-30] MEDS: INSULIN ASPART 100 UNITS/ML 3 ML PEN SC SCH ×2 (18:08→20:53)
[2017-10-30] MEDS ORDERED: NURSING VERBAL MED ORDER ONE (18:30)
[2017-10-30 18:32] VITALS: PULSE 74; O2SAT 94
[2017-10-30] MEDS ORDERED: CYAN100020 PO (19:52)
[2017-10-30] MEDS ORDERED: LORA10CA2 PO (19:52)
[2017-10-30 20:37] VITALS: BP 94/58; PULSE 72
[2017-10-30] MEDS: METOPROLOL TARTRATE 100 MG TAB PO SCH (20:40)
[2017-10-30] MEDS: BENZONATATE 100MG CAP PO PRN (20:41)
[2017-10-30] MEDS: PANTOprazole SOD 40 MG TAB PO SCH (20:41)
[2017-10-30] MEDS: BUDESONIDE/FORMOTEROL FUMARATE 160/4.5 60 PUFFS/INHALER INH SCH (20:41)
[2017-10-30] MEDS: INSULIN GLARGINE SOLOSTAR 100 UNITS/ML 3 ML PEN SQ SCH (20:53)
[2017-10-30] MEDS: HEPARIN SOD 5000 UNIT/0.5 ML CARP SQ SCH (20:54)
[2017-10-30 23:01] VITALS: BP 104/62; PULSE 66; TEMP 37.1; O2SAT 92
[2017-10-31] VITALS (10 sets, daily range): BP systolic 110–144; BP diastolic 64–76; PULSE 68–74; TEMP 36.1–36.8; O2SAT 93–99; BMI 28.2
[2017-10-31] MEDS ORDERED: ALBUT/IPRATROP 3MG/0.5MG NEB 3 ML VIAL INH SCH
[2017-10-31] MEDS: ALBUT/IPRATROP 3MG/0.5MG NEB 3 ML VIAL INH SCH ×4 (01:33→19:33)
[2017-10-31] MEDS: LEVOTHYROXINE 50 MCG TAB PO SCH (06:03)
[2017-10-31] MEDS: HEPARIN SOD 5000 UNIT/0.5 ML CARP SQ SCH ×3 (06:04→21:26)
[2017-10-31 07:22] LABS: BASO % 0.1 %; BASO ABS # 0.01 K/uL (0-0.2); EOS % 1.1 %; EOS ABS # 0.09 K/uL (0-0.5); HEMATOCRIT 33.8 % (37-47); HEMOGLOBIN 11.3 g/dL (12.0-16.0); IG# 0.02 K/uL (0.00-0.02); LYMPH % 14.4 %; LYMPH ABS # 1.21 K/uL (1.2-3.4); MEAN CELL VOLUME 84.9 fL (80-100); MEAN CORPUSCULAR HEMOGLOBIN 28.4 pg (25-34); MEAN CORPUSCULAR HGB CONC 33.4 g/dl (32-36); MEAN PLATELET VOLUME 8.9 fL (7.4-10.4); MONO % 8.2 %; MONO ABS # 0.69 K/uL (0.11-0.59); NEUT ABS # 6.41 K/uL (1.4-6.5); PLATELET COUNT 226 K/uL (130-400); RED CELL DISTRIBUTION WIDTH CV 12.9 % (11.5-14.5); RED CELL DISTRIBUTION WIDTH SD 39.4 fL (36.4-46.3); WHITE BLOOD COUNT 8.43 K/uL (4.8-10.8)
[2017-10-31] MEDS: BUDESONIDE/FORMOTEROL FUMARATE 160/4.5 60 PUFFS/INHALER INH SCH ×2 (07:58→21:09)
[2017-10-31] MEDS: FLUTICASONE PROPIONATE NA SPR 16 GM BTL SCH (07:58)
[2017-10-31] MEDS: LORATADINE 10 MG TAB PO SCH (07:59)
[2017-10-31] MEDS: BENZONATATE 100MG CAP PO PRN ×2 (07:59→21:11)
[2017-10-31] MEDS: CALCITRIOL 0.25 MCG CAP PO SCH (07:59)
[2017-10-31] MEDS: DILTIAZEM HCL 240 MG CAPCR PO SCH (07:59)
[2017-10-31] MEDS: FERROUS SULFATE 325 MG TAB PO SCH (07:59)
[2017-10-31] MEDS: ATORVASTATIN 10 MG TAB PO SCH (07:59)
[2017-10-31] MEDS: MAGNESIUM OXIDE 400 MG TAB PO SCH (07:59)
[2017-10-31] MEDS: METOPROLOL TARTRATE 100 MG TAB PO SCH ×2 (07:59→21:16)
[2017-10-31] MEDS: ASPIRIN 81 MG ECTAB PO SCH (08:00)
[2017-10-31] MEDS: CLOPIDOGREL BISULFATE 75 MG TAB PO SCH (08:00)
[2017-10-31] MEDS ORDERED: ESCITALOPRAM OXALATE 10 MG TAB PO SCH (08:00)
[2017-10-31] MEDS: PANTOprazole SOD 40 MG TAB PO SCH ×2 (08:15→21:10)
[2017-10-31] MEDS: INSULIN ASPART 100 UNITS/ML 3 ML PEN SC SCH ×4 (08:46→21:26)
[2017-10-31] MEDS: INSULIN GLARGINE SOLOSTAR 100 UNITS/ML 3 ML PEN SQ SCH ×2 (08:46→21:24)
[2017-10-31 14:21] LABS: CALCIUM 7.8 mg/dl (8.5-10.1); CREATININE 2.35 mg/dl (0.60-1.20); POTASSIUM 4.5 mmol/L (3.5-5.1)
[2017-10-31] MEDS: ESCITALOPRAM OXALATE 10 MG TAB PO SCH (17:34)
--- NOTE | 2017-10-31 21:43 | Progress Note ---
Subjective Date of Service: Oct 31, 2017. Subjective Pt evaluation today including: conversation w/ patient, conversation w/ family (daughter at the bedside and son over the phone), physical exam, lab review, review of inpatient medication list Pain: no pain PO Intake: adequate Voiding: saenz catheter in place patient says she feels much better with diuresis negative 3 liters since admission had to have a saenz catheter placed, was retaining urine had this issue years ago, said that she saw [facility], would like to see them again reports the urinary retention has been ongoing issue discussed that ever since she left the hospital last admission, she has not been doing well discussed with son over the phone, he feels that the patient is noncompliant with instructions drinks too much water/fluids patient says that she follows with 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 torch solderer in [place], planning on creating of fistula in the near future for possible initiation of HD patient is on board with HD reviewed labs, Na up to 125, Cr stable at 2.3 Problem List Medical Problems: (1) Acute bronchitis Status: Acute (2) Altered mental status Status: Acute (3) Anemia Status: Acute (4) Atypical chest pain Status: Acute (5) CHF (congestive heart failure) Status: Chronic (6) CHF exacerbation Status: Acute (7) CKD (chronic kidney disease) Status: Chronic (8) Degenerative disc disease, cervical Status: Acute (9) E86.0 Status: Acute (10) Edema Status: Acute (11) EKG, abnormal Status: Acute (12) Hyperglycemia Status: Acute (13) Hyperglycemia due to type 2 diabetes mellitus Status: Acute (14) Hyponatremia Status: Acute (15) Incarcerated right inguinal hernia Status: Acute (16) Left leg cellulitis Status: Acute (17) Leukocytosis Status: Acute (18) Pneumonia Status: Acute (19) Pneumonitis Status: Acute (20) Pneumonitis Status: Acute (21) Respiratory distress Status: Acute (22) Small bowel obstruction Status: Acute (23) UTI (urinary tract infection) Status: Acute (24) Vomiting and diarrhea Status: Acute (25) Weakness Status: Acute (26) Weakness Status: Acute Review of Systems Constitutional: + weakness, + fatigue Respiratory: + shortness of breath, + dyspnea on exertion Cardiac: + edema All Other Systems: Reviewed and Negative Medications Current Inpatient Medications Medications (Trade) Dose Ordered Sig/Leslee Route Start Time Stop Time Status Last Admin Dose Admin Albuterol Sulfate (Ventolin 0.5% 2.5MG/0.5ML Neb) 2.5 mg Q6H PRN INH 10/30/17 14:00 11/29/17 13:59 10/30/17 18:32 2.5 MG Aspirin (Ecotrin Tab) 81 mg QAM PO 10/31/17 08:00 11/30/17 08:59 10/31/17 08:00 81 MG Atorvastatin Calcium (Lipitor Tab) 10 mg DAILY PO 10/31/17 08:00 11/30/17 08:59 10/31/17 07:59 10 MG Benzonatate (Tessalon Perles Cap) 100 mg TID PRN PO 10/30/17 14:00 11/29/17 13:59 10/31/17 21:11 100 MG Budesonide/ Formoterol Fumarate (Symbicort 160/ 4.5 Inh) 2 puffs BID INH 10/30/17 20:00 11/29/17 20:59 10/31/17 21:09 2 PUFFS Calcitriol (Rocaltrol Cap) 0.25 mcg Q2D PO 10/31/17 09:00 11/30/17 08:59 10/31/17 07:59 0.25 MCG Clopidogrel Bisulfate (plAVix TAB) 75 mg DAILY PO 10/31/17 08:00 11/30/17 08:59 10/31/17 08:00 75 MG Digoxin (Lanoxin Tab) 0.125 mg MoWeFr@1600 PO 10/30/17 16:30 11/29/17 16:29 10/30/17 18:05 0.125 MG Docusate Sodium (coLACE CAP) 100 mg BID PRN PO 10/30/17 14:00 11/29/17 13:59 Insulin Glargine (Lantus Solostar Pen) 10 units BID SQ 10/30/17 20:00 11/29/17 20:59 10/31/17 21:24 10 UNITS Levothyroxine Sodium (Synthroid Tab) 50 mcg DAILYBB PO 10/31/17 06:30 11/30/17 06:59 10/31/17 06:03 50 MCG Loratadine (Claritin Tab) 10 mg QAM PO 10/31/17 08:00 11/30/17 08:59 8/9/18 07:59 10 MG Metoprolol Tartrate (Lopressor Tab) 100 mg BID PO 10/30/17 20:00 11/29/17 20:59 10/31/17 21:16 100 MG Diltiazem HCl (Cardizem Cd Cap) 240 mg DAILY PO 10/31/17 08:00 11/30/17 08:59 10/31/17 07:59 240 MG Pantoprazole Sodium (Protonix Tab) 40 mg BID PO 10/30/17 20:00 11/29/17 20:59 10/31/17 21:10 40 MG Magnesium Oxide (Mag-Ox Tab) 800 mg DAILY PO 10/31/17 08:00 11/30/17 08:59 10/31/17 07:59 800 MG Fluticasone Propionate (Flonase Nasal [place]) 2 sprays DAILY NA 10/31/17 08:00 11/30/17 08:59 10/31/17 07:58 2 SPRAYS Heparin Sodium (Porcine) (Heparin Sq 5000 Unit/0.5ml) 5,000 unit Q8 SQ 10/30/17 22:00 11/29/17 21:59 10/31/17 21:26 5,000 UNIT Acetaminophen (Tylenol Tab) 650 mg Q4H PRN PO 10/30/17 14:00 11/29/17 13:59 Ondansetron HCl (Zofran Inj) 4 mg Q6H PRN IV 10/30/17 14:00 11/29/17 13:59 Insulin Aspart (novoLOG ASPART) SLIDING SCALE If C... ACHS SC 10/30/17 16:30 11/29/17 16:29 10/31/17 21:26 8 UNITS Glucose (Glucose 40% Gel) 15-30 GRAMS 15 GRAMS... UD PRN PO 10/30/17 14:00 11/29/17 13:59 Glucose (Glucose Chew Tab) 4-8 Tablets 4 Tabl... UD PRN PO 10/30/17 14:00 11/29/17 13:59 Dextrose (Dextrose 50% 50ML Syringe) 25-50ML 25ML FOR ... UD PRN IV 10/30/17 14:00 11/29/17 13:59 Glucagon (Glucagon Inj) 1 mg UD PRN SQ 8/8/18 14:00 11/29/17 13:59 Carbohydrates (Carbohydrates For Hypoglycemia) 15-30 GRAMS 15 grams if BSG 54-69... UD PRN PO 10/30/17 14:00 11/29/17 13:59 Ferrous Sulfate (Feosol Tab) 325 mg QAM PO 10/31/17 08:00 11/30/17 08:59 10/31/17 07:59 325 MG Miscellaneous (Iv Fluids Completed) 1 ea PRN PRN N/A 10/30/17 15:00 10/30/18 14:59 Escitalopram Oxalate (Lexapro Tab) 5 mg DAILY@1500 PO 10/31/17 15:00 11/30/17 14:59 10/31/17 17:34 5 MG Albuterol/ Ipratropium (Duoneb) 3 ml Q6R INH 10/31/17 03:00 11/30/17 00:00 10/31/17 19:33 3 ML Furosemide (Lasix Tab) 40 mg BID17 PO 11/01/17 09:00 12/01/17 08:59 UNV Objective Vital Signs Date Time Temp Pulse Resp B/P (MAP) Pulse Ox O2 Delivery O2 Flow Rate FiO2 10/31/17 21:15 73 18 124/76 (92) 94 Room Air 10/31/17 19:33 74 16 96 Room Air 10/31/17 16:00 95 Room Air 10/31/17 14:56 36.6 72 18 110/66 (81) 98 Room Air 10/31/17 14:23 70 16 96 Room Air 10/31/17 08:00 99 Room Air 10/31/17 07:17 36.1 70 16 144/74 (97) 99 Nebulizer 10/31/17 07:03 71 16 93 Room Air 10/31/17 01:33 68 16 96 Room Air 10/31/17 00:20 Room Air 10/30/17 23:01 37.1 66 20 104/62 (76) 92 Room Air Physical Exam General Appearance: WD/WN, no apparent distress Eyes: normal inspection, EOMI, sclerae normal ENT: normal ENT inspection, hearing grossly normal, pharynx normal Neck: supple, no adenopathy, no JVD, trachea midline Respiratory/Chest: chest non-tender, no respiratory distress, no accessory muscle use, + decreased breath sounds, + rales Cardiovascular: no gallop, no JVD, no murmur, + irregularly irregular Abdomen: normal bowel sounds, non tender, soft, no organomegaly Extremities: normal range of motion, non-tender, normal inspection, no calf tenderness, pelvis stable, + pedal edema (trace in legs) Neurologic/Psychiatric: 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 nml as tested, no motor/sensory deficits, alert, normal mood/affect, oriented x 3 Skin: normal color, warm/dry, no rash Laboratory Results Last 24 Hours Test 10/31/17 06:39 10/31/17 08:01 10/31/17 12:20 10/31/17 13:44 White Blood Count 8.43 K/uL Red Blood Count 3.98 M/uL Hemoglobin 11.3 g/dL Hematocrit 33.8 % Mean Corpuscular Volume 84.9 fL Mean Corpuscular Hemoglobin 28.4 pg Mean Corpuscular Hemoglobin Concent 33.4 g/dl Platelet Count 226 K/uL Mean Platelet Volume 8.9 fL Neutrophils (%) (Auto) 76.0 % Lymphocytes (%) (Auto) 14.4 % Monocytes (%) (Auto) 8.2 % Eosinophils (%) (Auto) 1.1 % Basophils (%) (Auto) 0.1 % Neutrophils # (Auto) 6.41 K/uL Lymphocytes # (Auto) 1.21 K/uL Monocytes # (Auto) 0.69 K/uL Eosinophils # (Auto) 0.09 K/uL Basophils # (Auto) 0.01 K/uL RDW Standard Deviation 39.4 fL RDW Coefficient of Variation 12.9 % Immature Granulocyte % (Auto) 0.2 % Immature Granulocyte # (Auto) 0.02 K/uL Bedside Glucose 112 mg/dl 130 mg/dl Sodium Level 125 mmol/L Potassium Level 4.5 mmol/L Chloride Level 92 mmol/L Carbon Dioxide Level 26 mmol/L Anion Gap 7.0 mmol/L Blood Urea Nitrogen 45 mg/dl Creatinine 2.35 mg/dl Est Creatinine Clear Calc Drug Dose 15.8 ml/min Estimated GFR () 20.7 Estimated GFR (Non- 17.9 BUN/Creatinine Ratio 19.1 Random Glucose 166 mg/dl Calcium Level 7.8 mg/dl Test 10/31/17 16:34 10/31/17 20:41 10/31/17 20:42 Bedside Glucose 186 mg/dl 313 mg/dl 334 mg/dl Assessment and Plan 87yo female with multiple medical problems sent from personal [facility] with complaints of diffuse weakness, SAMUELS and decreased exercise tolerance as well as progressive shortness of breath 1. Hyponatremia - Ac=241 on admission up to 125 with Lasix 80mg IV on admission and fluid restriction repeat Na in the AM continue fluid restriction resume Lasix 40mg PO BID in the morning consult nephrology for their recommendations going forward serum osm was 272 and urine osm was 220 showing an appropriate response by kidneys, no evidence of SIADH random cortisol normal, TSH normal hyponatremia due to volume overload 2. Weakness - most likely secondary to #1 as well as deconditioning patient interested in rehab at [facility], referral made, needs to stay three midnights 3. KYLEIGH on CKD stage IV - Cr down to 2.3 this afternoon, repeat in the morning excellent response to Lasix 80mg IV resume Lasix at 40mg BID has been planning on HD as outpatient with her acetylene torch solderer in [place] consult nephrology while here saenz placed for urinary retention 4. Atrial fibrillation, chronic - rate controlled, pacemaker in place. Not on anticoagulation -Continue Digoxin, Diltiazem and Lopressor -High CHADS-2 score, however clear records of discussion between her and her dimension mill worker regarding anticoagulation. It was concluded that she would not be treated. She had been on Coumadin for a period and did not tolerate or comply well with treatment. 5. Acute on chronic diastolic and systolic heart failure - SOB, elevated BNP, clinical evidence of failure -Lasix 80mg IV x 1 on admission, excellent response, negative 3 liters, breathing better, minimal basilar rales on exam -Fluid and sodium restriction -Daily weights -Continue cardiac medications, Lopressor, Digoxin Urinary retention: saenz placed, excellent output had to see urology a few years ago for similar problem will consult them while here 6. CAD - stable, no evidence of ischemia -Continue ASA, Plavix, Lopressor, Lipitor 7. Diabetes - blood sugars elevated this evening resume Lantus 20 units in the AM and 10 units PM Novolog 8. Hypothyroidism - stable, chronic -Continue Synthroid 9. Depression/Anxiety - stable, chronic -Continue Celexa 5mg po daily -Avoid anticholinergic agents given possibility of urinary retention 10. F/E/N - Diuresis as above, goal negative 1L/24 hours. Monitor electrolytes and replete as needed, BID PRP, Continue Magnesium supplementation , DM/Low Na diet with fluid restriction, ground with aspiration precautions as patient reports difficulty swallowing at times. 11. Ppx - Heparin TID. Prevacid 12. Code - DNR per discussion with patient 13. Dispo - plan for [facility] after three midnights
[2017-11-01] VITALS (9 sets, daily range): BP systolic 98–120; BP diastolic 60–73; PULSE 70–76; TEMP 36.4–36.7; O2SAT 92–99; Ht 160 cm; Wt 71.1 kg
[2017-11-01] MEDS: ALBUT/IPRATROP 3MG/0.5MG NEB 3 ML VIAL INH SCH ×4 (01:49→19:05)
[2017-11-01] MEDS: HEPARIN SOD 5000 UNIT/0.5 ML CARP SQ SCH ×3 (04:52→21:21)
[2017-11-01] MEDS: LEVOTHYROXINE 50 MCG TAB PO SCH (06:05)
[2017-11-01 07:06] LABS: BASO % 0.1 %; BASO ABS # 0.01 K/uL (0-0.2); EOS % 2.3 %; EOS ABS # 0.19 K/uL (0-0.5); HEMOGLOBIN 10.6 g/dL (12.0-16.0); IG# 0.02 K/uL (0.00-0.02); LYMPH % 19.2 %; LYMPH ABS # 1.59 K/uL (1.2-3.4); MEAN CORPUSCULAR HEMOGLOBIN 28.5 pg (25-34); MEAN CORPUSCULAR HGB CONC 33.1 g/dl (32-36); MEAN PLATELET VOLUME 8.7 fL (7.4-10.4); MONO % 9.2 %; MONO ABS # 0.76 K/uL (0.11-0.59); NEUT ABS # 5.69 K/uL (1.4-6.5); PLATELET COUNT 236 K/uL (130-400); RED CELL DISTRIBUTION WIDTH SD 40.9 fL (36.4-46.3); WHITE BLOOD COUNT 8.26 K/uL (4.8-10.8)
[2017-11-01 07:34] LABS: CALCIUM 8.2 mg/dl (8.5-10.1); CREATININE 2.16 mg/dl (0.60-1.20); POTASSIUM 4.6 mmol/L (3.5-5.1)
[2017-11-01] MEDS ORDERED: FUROSEMIDE 40 MG TAB PO SCH (09:00)
[2017-11-01] MEDS: PANTOprazole SOD 40 MG TAB PO SCH ×2 (09:12→21:12)
[2017-11-01] MEDS: METOPROLOL TARTRATE 100 MG TAB PO SCH ×2 (09:12→20:00)
[2017-11-01] MEDS: FERROUS SULFATE 325 MG TAB PO SCH (09:12)
[2017-11-01] MEDS: BENZONATATE 100MG CAP PO PRN (09:12)
[2017-11-01] MEDS: DILTIAZEM HCL 240 MG CAPCR PO SCH (09:12)
[2017-11-01] MEDS: LORATADINE 10 MG TAB PO SCH (09:12)
[2017-11-01] MEDS: CLOPIDOGREL BISULFATE 75 MG TAB PO SCH (09:12)
[2017-11-01] MEDS: ATORVASTATIN 10 MG TAB PO SCH (09:12)
[2017-11-01] MEDS: MAGNESIUM OXIDE 400 MG TAB PO SCH (09:13)
[2017-11-01] MEDS: ASPIRIN 81 MG ECTAB PO SCH (09:13)
[2017-11-01] MEDS: FLUTICASONE PROPIONATE NA SPR 16 GM BTL SCH (09:13)
[2017-11-01] MEDS: BUDESONIDE/FORMOTEROL FUMARATE 160/4.5 60 PUFFS/INHALER INH SCH ×2 (09:13→21:08)
[2017-11-01] MEDS: INSULIN ASPART 100 UNITS/ML 3 ML PEN SC SCH ×4 (09:27→21:20)
[2017-11-01] MEDS: INSULIN GLARGINE SOLOSTAR 100 UNITS/ML 3 ML PEN SC SCH (09:27)
--- NOTE | 2017-11-01 10:23 | Nephrology Consultation ---
Nephrology Consultation Date & Providers Date of Consultation: Nov 01, 2017. Primary Care Provider: Curly Guido M.D. Referring Provider: Reason for Consultation Acute on chronic kidney injury, hyponatremia History of Present Illness Ms. Gil is an 87 year old white female who is seen at the request of Dr. Perez for evaluation and management of KYLEIGH / CKD and hyponatremia. Medical records in the EMR were reviewed today and are summarized as follows: Ms. Gil has a known h/o CKD w/ baseline creatinine 2.0 - 2.2. Her renal impairment is attributed to renal vascular disease. Her primary [employer] is Dr. Edmund Urias. She has been scheduled to undergo AVF creation by Dr. Bernardo but has not yet had the procedure performed due to recent hospitalizations for CHF. Ms. Gil's medical history is also significant for LVH, severe MR, pulmonary HTN, diastolic CHF, ASCVD s/p CABG, HTN, anemia, GERD and h/o incomplete bladder emptying. Ms. Gil resides at [facility]. She administers her own medications. Following discharge from the hospital 10/09 she has been taking Furosemide 40 mg daily with an additional dose PRN dyspnea or ankle swelling. Her discharge weight was 69 kg. Despite these measures she has suffered progressive LE edema and orthopnea. Ms. Gil presented to [facility] for reevaluation. Weight has increased to 72 kg, CXR revealed CMG with mild pulmonary congestion, creatinine was elevated at 2.3 and serum sodium had dropped to 120 mmol/L. Patient c/o difficulty voiding. Vyas catheter was placed and 80 mg Furosemide IV x 1 administered. Patient has diuresed 2500 cc and serum sodium has improved to 128 mmol/L. Ms. Gil reports that her breathing is subjectively improved. Past Medical/Surgical History Medical: Chronic kidney disease IV, baseline creatinine 1.8-2.0 mg/dL Coronary artery disease, history of CABG Diastolic CHF LVH Atrial fibrillation with tachybrady syndrome, pacemaker Hypertension GERD Anemia History of incomplete bladder emptying Diabetes mellitus Surgical: CABG (2006) PCI (2009) pacemaker 2012 Allergies Coded Allergies: Fenofibrate (Verified Allergy, Intermediate, rash, 10/30/17) Amoxicillin (Verified Allergy, Unknown, UNKNOWN, 10/30/17) Calcium Carbonate (Verified Allergy, Unknown, ., 10/30/17) Ciprofloxacin (Verified Allergy, Unknown, ., 10/30/17) Diphenhydramine (Verified Allergy, Unknown, ., 10/30/17) Fexofenadine (Verified Allergy, Unknown, UNKNOWN, 10/30/17) Irbesartan (Verified Allergy, Unknown, UNKNOWN, 10/30/17) Lidocaine (Verified Allergy, Unknown, ., 10/30/17) Niacin (Verified Allergy, Unknown, RASH, 10/30/17) Nystatin (Verified Allergy, Unknown, ., 10/30/17) Penicillins (Verified Allergy, Unknown, UNKNOWN, 10/30/17) Sulfa Antibiotics (Verified Allergy, Unknown, UNKNOWN, 10/30/17) Flumazenil (Verified Adverse Reaction, Intermediate, DELIRIUM, 10/30/17) anxious, increased heart rate, increased blood pressure Tomato (Verified Adverse Reaction, Unknown, GI SYMPTOMS, 10/30/17) Inpatient Medications Current Inpatient Medications Medications (Trade) Dose Ordered Sig/Leslee Route Start Time Stop Time Status Last Admin Dose Admin Albuterol Sulfate (Ventolin 0.5% 2.5MG/0.5ML Neb) 2.5 mg Q6H PRN INH 10/30/17 14:00 11/29/17 13:59 10/30/17 18:32 2.5 MG Aspirin (Ecotrin Tab) 81 mg QAM PO 10/31/17 08:00 11/30/17 08:59 11/01/17 09:13 81 MG Atorvastatin Calcium (Lipitor Tab) 10 mg DAILY PO 10/31/17 08:00 11/30/17 08:59 11/01/17 09:12 10 MG Benzonatate (Tessalon Perles Cap) 100 mg TID PRN PO 10/30/17 14:00 11/29/17 13:59 11/01/17 09:12 100 MG Budesonide/ Formoterol Fumarate (Symbicort 160/ 4.5 Inh) 2 puffs BID INH 10/30/17 20:00 11/29/17 20:59 11/01/17 09:13 2 PUFFS Calcitriol (Rocaltrol Cap) 0.25 mcg Q2D PO 10/31/17 09:00 11/30/17 08:59 10/31/17 07:59 0.25 MCG Clopidogrel Bisulfate (plAVix TAB) 75 mg DAILY PO 10/31/17 08:00 11/30/17 08:59 11/01/17 09:12 75 MG Digoxin (Lanoxin Tab) 0.125 mg MoWeFr@1600 PO 10/30/17 16:30 11/29/17 16:29 10/30/17 18:05 0.125 MG Docusate Sodium (coLACE CAP) 100 mg BID PRN PO 10/30/17 14:00 11/29/17 13:59 Levothyroxine Sodium (Synthroid Tab) 50 mcg DAILYBB PO 10/31/17 06:30 11/30/17 06:59 11/01/17 06:05 50 MCG Loratadine (Claritin Tab) 10 mg QAM PO 10/31/17 08:00 11/30/17 08:59 11/01/17 09:12 10 MG Metoprolol Tartrate (Lopressor Tab) 100 mg BID PO 10/30/17 20:00 11/29/17 20:59 11/01/17 09:12 100 MG Diltiazem HCl (Cardizem Cd Cap) 240 mg DAILY PO 10/31/17 08:00 11/30/17 08:59 11/01/17 09:12 240 MG Pantoprazole Sodium (Protonix Tab) 40 mg BID PO 10/30/17 20:00 11/29/17 20:59 11/01/17 09:12 40 MG Magnesium Oxide (Mag-Ox Tab) 800 mg DAILY PO 10/31/17 08:00 11/30/17 08:59 11/01/17 09:13 800 MG Fluticasone Propionate (Flonase Nasal [place]) 2 sprays DAILY NA 10/31/17 08:00 11/30/17 08:59 11/01/17 09:13 2 SPRAYS Heparin Sodium (Porcine) (Heparin Sq 5000 Unit/0.5ml) 5,000 unit Q8 SQ 10/30/17 22:00 11/29/17 21:59 10/31/17 21:26 5,000 UNIT Acetaminophen (Tylenol Tab) 650 mg Q4H PRN PO 10/30/17 14:00 11/29/17 13:59 Ondansetron HCl (Zofran Inj) 4 mg Q6H PRN IV 10/30/17 14:00 11/29/17 13:59 Insulin Aspart (novoLOG ASPART) SLIDING SCALE If C... ACHS SC 10/30/17 16:30 11/29/17 16:29 11/01/17 09:27 7 UNITS Glucose (Glucose 40% Gel) 15-30 GRAMS 15 GRAMS... UD PRN PO 10/30/17 14:00 11/29/17 13:59 Glucose (Glucose Chew Tab) 4-8 Tablets 4 Tabl... UD PRN PO 10/30/17 14:00 11/29/17 13:59 Dextrose (Dextrose 50% 50ML Syringe) 25-50ML 25ML FOR ... UD PRN IV 10/30/17 14:00 11/29/17 13:59 Glucagon (Glucagon Inj) 1 mg UD PRN SQ 10/30/17 14:00 11/29/17 13:59 Carbohydrates (Carbohydrates For Hypoglycemia) 15-30 GRAMS 15 grams if BSG 54-69... UD PRN PO 10/30/17 14:00 11/29/17 13:59 Ferrous Sulfate (Feosol Tab) 325 mg QAM PO 10/31/17 08:00 11/30/17 08:59 11/01/17 09:12 325 MG Miscellaneous (Iv Fluids Completed) 1 ea PRN PRN N/A 10/30/17 15:00 10/30/18 14:59 Escitalopram Oxalate (Lexapro Tab) 5 mg DAILY@1500 PO 10/31/17 15:00 11/30/17 14:59 10/31/17 17:34 5 MG Albuterol/ Ipratropium (Duoneb) 3 ml Q6R INH 10/31/17 03:00 11/30/17 00:00 11/01/17 07:06 3 ML Furosemide (Lasix Tab) 40 mg BID17 PO 11/01/17 09:00 12/01/17 08:59 11/01/17 09:13 40 MG Insulin Glargine (Lantus Solostar Pen) 10 units QPM SQ 11/01/17 21:00 11/29/17 20:59 Insulin Glargine (Lantus Solostar Pen) 20 units QAM SC 11/01/17 08:00 12/01/17 07:59 8/10/18 09:27 20 UNITS Codeine Phosphate/ Guaifenesin (Robitussin-AC Sugar Free Syrup) 5 ml Q6H PRN PO 11/01/17 10:15 12/01/17 10:14 UNV Family History FH: ALS (amyotrophic lateral sclerosis) FH: diabetes mellitus Omitted secondary to age had been on HD for 5 years prior to his . Cause of ESRD is unknown Social History Smoking Status: Never Smoker Alcohol Use: none Drug Use: none Marital Status: Housing Status: assisted living Occupation: retired . Retired. Resides in assisted living Review of Systems Constitutional: No fever Respiratory: + cough, No shortness of breath, No dyspnea at rest Cardiovascular: No chest pain Abdomen: No pain, No nausea, No vomiting A complete review of systems was performed. Pertinent positives are noted above. All other systems are negative. Physical Exam Date Time Temp Pulse Resp B/P (MAP) Pulse Ox O2 Delivery O2 Flow Rate FiO2 11/01/17 08:00 99 Room Air 11/01/17 07:22 36.4 70 20 120/73 (89) 98 Room Air 11/01/17 07:06 70 16 96 Room Air 11/01/17 02:23 Room Air 11/01/17 01:50 70 16 95 Room Air 10/31/17 23:49 36.8 69 18 111/64 (80) 94 Room Air 10/31/17 21:15 73 18 124/76 (92) 94 Room Air 10/31/17 19:33 74 16 96 Room Air 10/31/17 16:00 95 Room Air 10/31/17 14:56 36.6 72 18 110/66 (81) 98 Room Air 10/31/17 14:23 70 16 96 Room Air General Appearance: no apparent distress Head: normocephalic, atraumatic Eyes: PERRL, EOMI Neck: + JVD Respiratory/Chest: lungs clear, no respiratory distress Cardiovascular: regular rate, rhythm Abdomen/GI: normal bowel sounds, non tender, soft Extremities/Musculoskelatal: no calf tenderness, + pertinent finding (trace pretibial edema) Neurologic/Psych: alert, oriented x 3 Skin: warm/dry Laboratory Results Last 24 Hours Test 10/31/17 12:20 10/31/17 13:44 10/31/17 16:34 10/31/17 20:41 Bedside Glucose 130 mg/dl 186 mg/dl 313 mg/dl Sodium Level 125 mmol/L Potassium Level 4.5 mmol/L Chloride Level 92 mmol/L Carbon Dioxide Level 26 mmol/L Anion Gap 7.0 mmol/L Blood Urea Nitrogen 45 mg/dl Creatinine 2.35 mg/dl Est Creatinine Clear Calc Drug Dose 15.8 ml/min Estimated GFR () 20.7 Estimated GFR (Non- 17.9 BUN/Creatinine Ratio 19.1 Random Glucose 166 mg/dl Calcium Level 7.8 mg/dl Test 10/31/17 20:42 11/01/17 06:25 11/01/17 07:33 Bedside Glucose 334 mg/dl 84 mg/dl White Blood Count 8.26 K/uL Red Blood Count 3.72 M/uL Hemoglobin 10.6 g/dL Hematocrit 32.0 % Mean Corpuscular Volume 86.0 fL Mean Corpuscular Hemoglobin 28.5 pg Mean Corpuscular Hemoglobin Concent 33.1 g/dl Platelet Count 236 K/uL Mean Platelet Volume 8.7 fL Neutrophils (%) (Auto) 69.0 % Lymphocytes (%) (Auto) 19.2 % Monocytes (%) (Auto) 9.2 % Eosinophils (%) (Auto) 2.3 % Basophils (%) (Auto) 0.1 % Neutrophils # (Auto) 5.69 K/uL Lymphocytes # (Auto) 1.59 K/uL Monocytes # (Auto) 0.76 K/uL Eosinophils # (Auto) 0.19 K/uL Basophils # (Auto) 0.01 K/uL RDW Standard Deviation 40.9 fL RDW Coefficient of Variation 13.0 % Immature Granulocyte % (Auto) 0.2 % Immature Granulocyte # (Auto) 0.02 K/uL Sodium Level 128 mmol/L Potassium Level 4.6 mmol/L Chloride Level 94 mmol/L Carbon Dioxide Level 28 mmol/L Anion Gap 7.0 mmol/L Blood Urea Nitrogen 48 mg/dl Creatinine 2.16 mg/dl Est Creatinine Clear Calc Drug Dose 17.1 ml/min Estimated GFR () 23.0 Estimated GFR (Non- 19.8 BUN/Creatinine Ratio 22.0 Random Glucose 63 mg/dl Calcium Level 8.2 mg/dl Magnesium Level 2.4 mg/dl Impression (1) Acute kidney injury (2) CKD (chronic kidney disease), stage III (3) Hyponatremia (4) CHF (congestive heart failure) (5) Severe mitral regurgitation (6) Moderate to severe pulmonary hypertension Recommendations Acute on chronic kidney injury and hyponatremia are reflective of decompensated CHF. Patient had been self administering Furosemide. Despite diuretic therapy she developed progressive volume overload and cardiac dysfunction. Will change from Furosemide to Bumex 1 mg po BID for improved bioavailability. Recommend that staff counsel at [facility] [place] administer diuretics based on volume status. If patient shows signs of dehydration, reduce Bumex to 1 mg daily until symptoms resolve. If patient shows signs of volume overload increase Bumex to 2 mg in the morning and 1 mg in the evening until symptoms resolve. I have encouraged patient to reschedule her appoint w/ Dr. Bernardo for AVF creation. Will await Urology recommendations. Patient has had difficulty with bladder emptying in the past. Typically this has resolved after a brief placement of Vyas catheter.
[2017-11-01] MEDS: GUAIFENESIN/CODEINE 100MG/10MG 5ML UDC PO PRN ×2 (11:03→18:04)
--- NOTE | 2017-11-01 13:34 | Urology Consultation ---
History General Date of Service: Nov 01, 2017. Chief Complaint: Voiding difficulty/retention Primary Care Physician: Curly Guido M.D. Pt seen a urologist before?: Yes (Dr. Adames) If yes, why?: Urinary retention in the hospital setting, last seen in 2015 History of Present Illness 87 YO female, KYLEIGH/CKD, urinary retention. Patient last seen by Dr. Adames for urinary retention in the hospital setting in 2016, this spontaneously resolved after Vyas placement. Patient reports that her urination has been okay since then, noticing some difficulty emptying over the past [address] draining clear yellow urine. Patient denies flank pain. Patient denies nausea/vomiting. Nephrology notes reviewed, baseline Creatinine of 2. Laboratory Labs were reviewed and are within normal limits unless listed below. Labs are available in the chart and at [facility] Problem List Medical Problems: (1) Acute bronchitis Status: Acute (2) Altered mental status Status: Acute (3) Anemia Status: Acute (4) Atypical chest pain Status: Acute (5) CHF (congestive heart failure) Status: Chronic (6) CHF exacerbation Status: Acute (7) CKD (chronic kidney disease) Status: Chronic (8) Degenerative disc disease, cervical Status: Acute (9) E86.0 Status: Acute (10) Edema Status: Acute (11) EKG, abnormal Status: Acute (12) Hyperglycemia Status: Acute (13) Hyperglycemia due to type 2 diabetes mellitus Status: Acute (14) Hyponatremia Status: Acute (15) Incarcerated right inguinal hernia Status: Acute (16) Left leg cellulitis Status: Acute (17) Leukocytosis Status: Acute (18) Pneumonia Status: Acute (19) Pneumonitis Status: Acute (20) Pneumonitis Status: Acute (21) Respiratory distress Status: Acute (22) Small bowel obstruction Status: Acute (23) UTI (urinary tract infection) Status: Acute (24) Vomiting and diarrhea Status: Acute (25) Weakness Status: Acute (26) Weakness Status: Acute Past History A Fib, coronary artery disease, diabetes, other Past Surgical History: coronary bypass surgery, pacemaker Family History FH: ALS (amyotrophic lateral sclerosis) FH: diabetes mellitus Omitted secondary to age Social History Hx Tobacco Use In Past Year?: No Marital status: Housing status: assisted living Occupation status: retired Allergies Coded Allergies: Fenofibrate (Verified Allergy, Intermediate, rash, 8/8/18) Amoxicillin (Verified Allergy, Unknown, UNKNOWN, 10/30/17) Calcium Carbonate (Verified Allergy, Unknown, ., 10/30/17) Ciprofloxacin (Verified Allergy, Unknown, ., 10/30/17) Diphenhydramine (Verified Allergy, Unknown, ., 10/30/17) Fexofenadine (Verified Allergy, Unknown, UNKNOWN, 10/30/17) Irbesartan (Verified Allergy, Unknown, UNKNOWN, 10/30/17) Lidocaine (Verified Allergy, Unknown, ., 10/30/17) Niacin (Verified Allergy, Unknown, RASH, 10/30/17) Nystatin (Verified Allergy, Unknown, ., 10/30/17) Penicillins (Verified Allergy, Unknown, UNKNOWN, 10/30/17) Sulfa Antibiotics (Verified Allergy, Unknown, UNKNOWN, 10/30/17) Flumazenil (Verified Adverse Reaction, Intermediate, DELIRIUM, 10/30/17) anxious, increased heart rate, increased blood pressure Tomato (Verified Adverse Reaction, Unknown, GI SYMPTOMS, 10/30/17) Medications Home Medications: Home Meds and Scripts Medications Dose Route/Sig Max Daily Dose Days Date Category Dose Instructions Chronulac (Lactulose) 10 Gm/15 Ml Syrp 15 Ml PO QAM 10/30/17 Reported Miralax (Polyethylene Glycol 3350) 1 Pow Pow 17 Gm PO UD 10/30/17 Reported Vitamin D 08857 Unit (Ergocalciferol) 50,000 Unit Cap 50,000 Unit PO WK 10/30/17 Reported ONCE A WEEK ON THURSDAYS FOR 6 WEEKS THEN RETURN TO PREVIOUS ORDER OF 1,000U DAILY Rocaltrol Cap (Calcitriol) 0.25 Mcg Cap 0.25 Mcg PO Q2D 10/30/17 Reported Tessalon Perles (Benzonatate) 100 Mg Cap 100 Mg PO TID PRN 10/30/17 Reported Diltiazem Hcl Er (Diltiazem Hcl Extended Release) 240 Mg Cap 240 Mg PO DAILY 10/30/17 Reported Prevacid (Lansoprazole) 15 Mg Cap 15 Mg PO BID 10/30/17 Reported Magnesium Oxide (Magnesium Oxide (Mg Supplement) 250 Mg Tab 500 Mg PO DAILY 10/30/17 Reported Mucus Relief Er (Guaifenesin) 600 Mg Tab 600 Mg PO BID PRN 09/30/17 Reported Digoxin 0.125 Mg Tab 0.125 Mg PO 3XWK 09/30/17 Reported DAILY ON SATURDAY/SATURDAY/SATURDAY. Plavix (Clopidogrel Bisulfate) 75 Mg Tab 75 Mg PO DAILY 09/30/17 Reported Buspirone Hcl 5 Mg Tab 5 Mg PO BID PRN 09/30/17 Reported Lipitor (Atorvastatin Calcium) 10 Mg Tab 10 Mg PO DAILY 09/30/17 Reported Lasix (Furosemide) 40 Mg Tab 40 Mg PO DAILY 09/30/17 Reported Lantus Solostar (Insulin Glargine) 100 Unit/Ml Inj 10 Units SQ QPM 06/25/17 Reported Lantus Solostar (Insulin Glargine) 100 Unit/Ml Inj 20 Units SQ QAM 06/25/17 Reported Mometasone Furoate (Mometasone Furoate (Nasal)) 50 Mcg/Act Spr 2 Sprays ANTOINE DAILY 06/25/17 Reported Symbicort 160/4.5 Inhaler (Budesonide/Formoterol Fumarate) Aero 2 Puffs INH BID 06/25/17 Reported Aspirin Ec (Aspirin) 81 Mg Tab 81 Mg PO QAM 03/30/16 Reported Lexapro (Escitalopram Oxalate) 10 Mg Tab 5 Mg PO DAILY 02/06/16 Reported 1/2 TABLET DOSAGE Nitrostat (Nitroglycerin) 0.4 Mg Sub 0.4 Mg UT UD PRN 12/30/[address] ONE TABLET UNDER THE TONGUE EVERY 5 MINUTES FOR UP TO 3 DOSES IF NEEDED FOR CHEST PAIN Cranberry (Cranberry (Vaccinium Macrocarp) 500 Mg Cap 1,000 Mg PO BID 12/30/15 Reported Lopressor (Metoprolol Tartrate) 100 Mg Tab 100 Mg PO BID 12/30/15 Reported Levothyroxine Sodium 50 Mcg Tab 50 Mcg PO QAM 12/30/15 Reported Docusate Sodium 100 Mg Cap 100 Mg PO BID PRN 12/30/15 Reported Albuterol Sulfate (Albuterol Sulf) 2.5 Mg/0.5 Ml Nebu 2.5 Mg NEB Q6H PRN 12/30/15 Reported Claritin (Loratadine) 10 Mg Cap 10 Mg PO QAM 09/09/13 Reported Vitamin B12 (Cyanocobalamin) 1,000 Mcg Tab 1,000 Mcg PO QAM 6/18/14 Reported Inpatient Medications: Current Inpatient Medications Medications (Trade) Dose Ordered Sig/Leslee Route Start Time Stop Time Status Last Admin Dose Admin Albuterol Sulfate (Ventolin 0.5% 2.5MG/0.5ML Neb) 2.5 mg Q6H PRN INH 10/30/17 14:00 11/29/17 13:59 10/30/17 18:32 2.5 MG Aspirin (Ecotrin Tab) 81 mg QAM PO 10/31/17 08:00 11/30/17 08:59 11/01/17 09:13 81 MG Atorvastatin Calcium (Lipitor Tab) 10 mg DAILY PO 10/31/17 08:00 11/30/17 08:59 11/01/17 09:12 10 MG Benzonatate (Tessalon Perles Cap) 100 mg TID PRN PO 10/30/17 14:00 11/29/17 13:59 11/01/17 09:12 100 MG Budesonide/ Formoterol Fumarate (Symbicort 160/ 4.5 Inh) 2 puffs BID INH 10/30/17 20:00 11/29/17 20:59 11/01/17 09:13 2 PUFFS Calcitriol (Rocaltrol Cap) 0.25 mcg Q2D PO 10/31/17 09:00 11/30/17 08:59 10/31/17 07:59 0.25 MCG Clopidogrel Bisulfate (plAVix TAB) 75 mg DAILY PO 10/31/17 08:00 11/30/17 08:59 11/01/17 09:12 75 MG Digoxin (Lanoxin Tab) 0.125 mg MoWeFr@1600 PO 10/30/17 16:30 11/29/17 16:29 10/30/17 18:05 0.125 MG Docusate Sodium (coLACE CAP) 100 mg BID PRN PO 10/30/17 14:00 11/29/17 13:59 Levothyroxine Sodium (Synthroid Tab) 50 mcg DAILYBB PO 10/31/17 06:30 11/30/17 06:59 11/01/17 06:05 50 MCG Loratadine (Claritin Tab) 10 mg QAM PO 10/31/17 08:00 11/30/17 08:59 11/01/17 09:12 10 MG Metoprolol Tartrate (Lopressor Tab) 100 mg BID PO 10/30/17 20:00 11/29/17 20:59 11/01/17 09:12 100 MG Diltiazem HCl (Cardizem Cd Cap) 240 mg DAILY PO 10/31/17 08:00 11/30/17 08:59 11/01/17 09:12 240 MG Pantoprazole Sodium (Protonix Tab) 40 mg BID PO 10/30/17 20:00 11/29/17 20:59 11/01/17 09:12 40 MG Magnesium Oxide (Mag-Ox Tab) 800 mg DAILY PO 10/31/17 08:00 11/30/17 08:59 11/01/17 09:13 800 MG Fluticasone Propionate (Flonase Nasal [place]) 2 sprays DAILY NA 10/31/17 08:00 11/30/17 08:59 11/01/17 09:13 2 SPRAYS Heparin Sodium (Porcine) (Heparin Sq 5000 Unit/0.5ml) 5,000 unit Q8 SQ 10/30/17 22:00 11/29/17 21:59 11/01/17 13:08 5,000 UNIT Acetaminophen (Tylenol Tab) 650 mg Q4H PRN PO 10/30/17 14:00 11/29/17 13:59 Ondansetron HCl (Zofran Inj) 4 mg Q6H PRN IV 10/30/17 14:00 11/29/17 13:59 Insulin Aspart (novoLOG ASPART) SLIDING SCALE If C... ACHS SC 10/30/17 16:30 11/29/17 16:29 11/01/17 13:08 4 UNITS Glucose (Glucose 40% Gel) 15-30 GRAMS 15 GRAMS... UD PRN PO 10/30/17 14:00 11/29/17 13:59 Glucose (Glucose Chew Tab) 4-8 Tablets 4 Tabl... UD PRN PO 10/30/17 14:00 11/29/17 13:59 Dextrose (Dextrose 50% 50ML Syringe) 25-50ML 25ML FOR ... UD PRN IV 10/30/17 14:00 11/29/17 13:59 Glucagon (Glucagon Inj) 1 mg UD PRN SQ 10/30/17 14:00 11/29/17 13:59 Carbohydrates (Carbohydrates For Hypoglycemia) 15-30 GRAMS 15 grams if BSG 54-69... UD PRN PO 10/30/17 14:00 11/29/17 13:59 Ferrous Sulfate (Feosol Tab) 325 mg QAM PO 10/31/17 08:00 11/30/17 08:59 11/01/17 09:12 325 MG Miscellaneous (Iv Fluids Completed) 1 ea PRN PRN N/A 10/30/17 15:00 10/30/18 14:59 Escitalopram Oxalate (Lexapro Tab) 5 mg DAILY@1500 PO 10/31/17 15:00 11/30/17 14:59 10/31/17 17:34 5 MG Albuterol/ Ipratropium (Duoneb) 3 ml Q6R INH 10/31/17 03:00 11/30/17 00:00 11/01/17 07:06 3 ML Insulin Glargine (Lantus Solostar Pen) 10 units QPM SQ 11/01/17 21:00 11/29/17 20:59 Insulin Glargine (Lantus Solostar Pen) 20 units QAM SC 11/01/17 08:00 12/01/17 07:59 11/01/17 09:27 20 UNITS Codeine Phosphate/ Guaifenesin (Robitussin-AC Sugar Free Syrup) 5 ml Q6H PRN PO 11/01/17 10:15 12/01/17 10:14 11/01/17 11:03 5 ML Bumetanide (Bumex Tab) 1 mg BID17 PO 11/01/17 17:00 12/01/17 16:59 Review of Systems Review of Systems Constitutional: No fever, No chills Eyes: No blurred vision Neurological: No dizzy, No numbness/tingling Gastrointestinal: No abdominal pain, No nausea, No vomiting Cardiovascular: No chest pain Respiratory: No shortness of breath Musculoskeletal: No back pain Ears / Nose / Throat: No problem reported Psychologic / Mental: No problem reported Female : + see HPI, + weak stream Physical Exam Vital Signs: Vital Signs Past 12 Hours Date Time Temp Pulse Resp B/P (MAP) Pulse Ox O2 Delivery O2 Flow Rate FiO2 11/01/17 08:00 99 Room Air 11/01/17 07:22 Room Air 11/01/17 07:06 70 16 96 Room Air 11/01/17 02:23 Room Air 11/01/17 01:50 70 16 95 Room Air Physical Exam: General Appearance: no apparent distress Eyes: bilateral eyes normal inspection ENT: hearing grossly normal Neck: supple, no JVD Respiratory/Chest: no respiratory distress, no accessory muscle use Cardiovascular: no JVD Gastrointestinal: Abdomen: normal abdomen Bladder: normal bladder Renal: normal renal Extremities: normal inspection Neurologic/Psychiatric: alert, normal mood/affect, oriented x 3 Skin: normal color Assessment & Plan Assessment & Plan 87 YO F, KYLEIGH/CKD, urinary retention. Recommend that Vyas remain in place for a total of 7-10 days. Recommend routine bladder scans Q4-6 hours at SNF/Rehab facility with straight cath PRN if PVR greater than 300ml. Will arrange for outpatient evaluation with Dr. Adames in 2 weeks to assess retention, likely cystoscopy. Thank you for the consult, will continue to follow along with primary service.
--- NOTE | 2017-11-01 15:16 | Progress Note ---
Subjective Date of Service: Nov 01, 2017. Subjective Pt evaluation today including: conversation w/ patient, conversation w/ family (son over the phone), physical exam, lab review, conversation w/ oracle consultant, review of inpatient medication list Pain: no pain PO Intake: adequate Voiding: saenz catheter in place patient feeling well, breathing very well, so much better than prior to admission discussed with Dr. Collier, he changed furosemide to Bumex 1mg BID discussed with urology, keep saenz 7-10 days, once pulled, staff can perform straight catheterizations for >300cc urine reviewed labs, Cr stable at 2.1, Na up to 128 updated son over the phone per CM, patient can go to [facility] once medically stable, likely tomorrow Problem List Medical Problems: (1) Acute bronchitis Status: Acute (2) Altered mental status Status: Acute (3) Anemia Status: Acute (4) Atypical chest pain Status: Acute (5) CHF (congestive heart failure) Status: Chronic (6) CHF exacerbation Status: Acute (7) CKD (chronic kidney disease) Status: Chronic (8) Degenerative disc disease, cervical Status: Acute (9) E86.0 Status: Acute (10) Edema Status: Acute (11) EKG, abnormal Status: Acute (12) Hyperglycemia Status: Acute (13) Hyperglycemia due to type 2 diabetes mellitus Status: Acute (14) Hyponatremia Status: Acute (15) Incarcerated right inguinal hernia Status: Acute (16) Left leg cellulitis Status: Acute (17) Leukocytosis Status: Acute (18) Pneumonia Status: Acute (19) Pneumonitis Status: Acute (20) Pneumonitis Status: Acute (21) Respiratory distress Status: Acute (22) Small bowel obstruction Status: Acute (23) UTI (urinary tract infection) Status: Acute (24) Vomiting and diarrhea Status: Acute (25) Weakness Status: Acute (26) Weakness Status: Acute Review of Systems Constitutional: + weakness Respiratory: + dyspnea on exertion All Other Systems: Reviewed and Negative Medications Current Inpatient Medications Medications (Trade) Dose Ordered Sig/Leslee Route Start Time Stop Time Status Last Admin Dose Admin Albuterol Sulfate (Ventolin 0.5% 2.5MG/0.5ML Neb) 2.5 mg Q6H PRN INH 10/30/17 14:00 11/29/17 13:59 10/30/17 18:32 2.5 MG Aspirin (Ecotrin Tab) 81 mg QAM PO 10/31/17 08:00 11/30/17 08:59 11/01/17 09:13 81 MG Atorvastatin Calcium (Lipitor Tab) 10 mg DAILY PO 10/31/17 08:00 11/30/17 08:59 11/01/17 09:12 10 MG Benzonatate (Tessalon Perles Cap) 100 mg TID PRN PO 10/30/17 14:00 11/29/17 13:59 11/01/17 09:12 100 MG Budesonide/ Formoterol Fumarate (Symbicort 160/ 4.5 Inh) 2 puffs BID INH 10/30/17 20:00 11/29/17 20:59 11/01/17 09:13 2 PUFFS Calcitriol (Rocaltrol Cap) 0.25 mcg Q2D PO 10/31/17 09:00 11/30/17 08:59 10/31/17 07:59 0.25 MCG Clopidogrel Bisulfate (plAVix TAB) 75 mg DAILY PO 10/31/17 08:00 11/30/17 08:59 11/01/17 09:12 75 MG Digoxin (Lanoxin Tab) 0.125 mg MoWeFr@1600 PO 10/30/17 16:30 11/29/17 16:29 10/30/17 18:05 0.125 MG Docusate Sodium (coLACE CAP) 100 mg BID PRN PO 10/30/17 14:00 11/29/17 13:59 Levothyroxine Sodium (Synthroid Tab) 50 mcg DAILYBB PO 10/31/17 06:30 11/30/17 06:59 11/01/17 06:05 50 MCG Loratadine (Claritin Tab) 10 mg QAM PO 10/31/17 08:00 11/30/17 08:59 11/01/17 09:12 10 MG Metoprolol Tartrate (Lopressor Tab) 100 mg BID PO 10/30/17 20:00 11/29/17 20:59 11/01/17 09:12 100 MG Diltiazem HCl (Cardizem Cd Cap) 240 mg DAILY PO 10/31/17 08:00 11/30/17 08:59 11/01/17 09:12 240 MG Pantoprazole Sodium (Protonix Tab) 40 mg BID PO 10/30/17 20:00 11/29/17 20:59 11/01/17 09:12 40 MG Magnesium Oxide (Mag-Ox Tab) 800 mg DAILY PO 10/31/17 08:00 11/30/17 08:59 11/01/17 09:13 800 MG Fluticasone Propionate (Flonase Nasal [place]) 2 sprays DAILY NA 10/31/17 08:00 11/30/17 08:59 11/01/17 09:13 2 SPRAYS Heparin Sodium (Porcine) (Heparin Sq 5000 Unit/0.5ml) 5,000 unit Q8 SQ 10/30/17 22:00 11/29/17 21:59 11/01/17 13:08 5,000 UNIT Acetaminophen (Tylenol Tab) 650 mg Q4H PRN PO 10/30/17 14:00 11/29/17 13:59 Ondansetron HCl (Zofran Inj) 4 mg Q6H PRN IV 10/30/17 14:00 11/29/17 13:59 Insulin Aspart (novoLOG ASPART) SLIDING SCALE If C... ACHS SC 10/30/17 16:30 11/29/17 16:29 11/01/17 13:08 4 UNITS Glucose (Glucose 40% Gel) 15-30 GRAMS 15 GRAMS... UD PRN PO 10/30/17 14:00 11/29/17 13:59 Glucose (Glucose Chew Tab) 4-8 Tablets 4 Tabl... UD PRN PO 10/30/17 14:00 11/29/17 13:59 Dextrose (Dextrose 50% 50ML Syringe) 25-50ML 25ML FOR ... UD PRN IV 10/30/17 14:00 11/29/17 13:59 Glucagon (Glucagon Inj) 1 mg UD PRN SQ 10/30/17 14:00 11/29/17 13:59 Carbohydrates (Carbohydrates For Hypoglycemia) 15-30 GRAMS 15 grams if BSG 54-69... UD PRN PO 10/30/17 14:00 11/29/17 13:59 Ferrous Sulfate (Feosol Tab) 325 mg QAM PO 10/31/17 08:00 11/30/17 08:59 11/01/17 09:12 325 MG Miscellaneous (Iv Fluids Completed) 1 ea PRN PRN N/A 10/30/17 15:00 10/30/18 14:59 Escitalopram Oxalate (Lexapro Tab) 5 mg DAILY@1500 PO 10/31/17 15:00 11/30/17 14:59 10/31/17 17:34 5 MG Albuterol/ Ipratropium (Duoneb) 3 ml Q6R INH 10/31/17 03:00 11/30/17 00:00 11/01/17 14:19 3 ML Insulin Glargine (Lantus Solostar Pen) 10 units QPM SQ 11/01/17 21:00 11/29/17 20:59 Insulin Glargine (Lantus Solostar Pen) 20 units QAM SC 11/01/17 08:00 12/01/17 07:59 11/01/17 09:27 20 UNITS Codeine Phosphate/ Guaifenesin (Robitussin-AC Sugar Free Syrup) 5 ml Q6H PRN PO 11/01/17 10:15 12/01/17 10:14 11/01/17 11:03 5 ML Bumetanide (Bumex Tab) 1 mg BID17 PO 11/01/17 17:00 12/01/17 16:59 Objective Vital Signs Date Time Temp Pulse Resp B/P (MAP) Pulse Ox O2 Delivery O2 Flow Rate FiO2 11/01/17 15:02 36.7 70 18 109/69 (82) 96 Room Air 11/01/17 14:20 72 16 96 Room Air 11/01/17 08:00 99 Room Air 11/01/17 07:22 Room Air 11/01/17 07:06 70 16 96 Room Air 11/01/17 02:23 Room Air 11/01/17 01:50 70 16 95 Room Air 10/31/17 23:49 36.8 69 18 111/64 (80) 94 Room Air 10/31/17 21:15 73 18 124/76 (92) 94 Room Air 10/31/17 19:33 74 16 96 Room Air 10/31/17 16:00 95 Room Air Physical Exam General Appearance: WD/WN, no apparent distress Eyes: normal inspection, EOMI, sclerae normal ENT: normal ENT inspection, hearing grossly normal, pharynx normal Neck: supple, no adenopathy, no JVD, trachea midline Respiratory/Chest: chest non-tender, lungs clear, normal breath sounds, no respiratory distress, no accessory muscle use Cardiovascular: no edema, no gallop, no JVD, no murmur, + irregularly irregular Abdomen: normal bowel sounds, non tender, soft, no organomegaly Extremities: normal range of motion, non-tender, normal inspection, no pedal edema, no calf tenderness, pelvis stable Neurologic/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: 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, alert, normal mood/affect, oriented x 3, + motor weakness Skin: normal color, warm/dry, no rash Laboratory Results Last 24 Hours Test 10/31/17 16:34 10/31/17 20:41 10/31/17 20:42 11/01/17 06:25 Bedside Glucose 186 mg/dl 313 mg/dl 334 mg/dl White Blood Count 8.26 K/uL Red Blood Count 3.72 M/uL Hemoglobin 10.6 g/dL Hematocrit 32.0 % Mean Corpuscular Volume 86.0 fL Mean Corpuscular Hemoglobin 28.5 pg Mean Corpuscular Hemoglobin Concent 33.1 g/dl Platelet Count 236 K/uL Mean Platelet Volume 8.7 fL Neutrophils (%) (Auto) 69.0 % Lymphocytes (%) (Auto) 19.2 % Monocytes (%) (Auto) 9.2 % Eosinophils (%) (Auto) 2.3 % Basophils (%) (Auto) 0.1 % Neutrophils # (Auto) 5.69 K/uL Lymphocytes # (Auto) 1.59 K/uL Monocytes # (Auto) 0.76 K/uL Eosinophils # (Auto) 0.19 K/uL Basophils # (Auto) 0.01 K/uL RDW Standard Deviation 40.9 fL RDW Coefficient of Variation 13.0 % Immature Granulocyte % (Auto) 0.2 % Immature Granulocyte # (Auto) 0.02 K/uL Sodium Level 128 mmol/L Potassium Level 4.6 mmol/L Chloride Level 94 mmol/L Carbon Dioxide Level 28 mmol/L Anion Gap 7.0 mmol/L Blood Urea Nitrogen 48 mg/dl Creatinine 2.16 mg/dl Est Creatinine Clear Calc Drug Dose 17.1 ml/min Estimated GFR () 23.0 Estimated GFR (Non- 19.8 BUN/Creatinine Ratio 22.0 Random Glucose 63 mg/dl Calcium Level 8.2 mg/dl Magnesium Level 2.4 mg/dl Test 11/01/17 07:33 11/01/17 11:47 Bedside Glucose 84 mg/dl 182 mg/dl Assessment and Plan 87yo female with multiple medical problems sent from [facility] with complaints of diffuse weakness, SAMUELS and decreased exercise tolerance as well as progressive shortness of breath 1. Hyponatremia - Bo=236 on admission up to 128 today with diuretics and fluid restriction, was due to volume overload continue Bumex 1mg BID consult nephrology for their recommendations going forward, appreciate Dr. Collier input serum osm was 272 and urine osm was 220 showing an appropriate response by kidneys, no evidence of SIADH random cortisol normal, TSH normal 2. Weakness - most likely secondary to #1 as well as deconditioning patient interested in rehab at [facility], referral made, can accept tomorrow if medically stable 3. KYLEIGH on CKD stage IV - Cr down to 2.1 today, her baseline Dr. Collier changed Bumex to 1mg BID should monitor volume status closely, if too dry then 1mg daily, if volume overloaded then 2mg in the AM needs to follow up with vascular specialist soon for fistula creation 4. Atrial fibrillation, chronic - rate controlled, pacemaker in place. 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 It was concluded that she would not be treated. She had been on Coumadin for a period and did not tolerate or comply well with treatment. 5. Acute on chronic diastolic and systolic heart failure - SOB, elevated BNP, clinical evidence of failure -Lasix 80mg IV x 1 on admission, excellent response, negative 3 liters, breathing better, no rales on exam -Fluid and sodium restriction -Daily weights -Continue cardiac medications, Lopressor, Digoxin - will use Bumex 1mg BID from now on Urinary retention: saenz placed, excellent output had to see urology a few years ago for similar problem recommend keeping saenz for 7-10 days, can utilize straight cath PRN after that 6. CAD - stable, no evidence of ischemia -Continue ASA, Plavix, Lopressor, Lipitor 7. Diabetes - monitor for hypoglycemia, no episodes resume Lantus 20 units in the AM and 10 units PM Novolog 8. Hypothyroidism - stable, chronic -Continue Synthroid 9. Depression/Anxiety - stable, chronic -Continue Celexa 5mg po daily -Avoid anticholinergic agents given possibility of urinary retention 10. F/E/N - Diuresis as above, goal negative 1L/24 hours. Monitor electrolytes and replete as needed, BID PRP, Continue Magnesium supplementation , DM/Low Na diet with fluid restriction, ground with aspiration precautions as patient reports difficulty swallowing at times. 11. Ppx - Heparin TID. Prevacid 12. Code - DNR per discussion with patient 13. Dispo - plan for [facility] tomorrow
[2017-11-01] MEDS: ESCITALOPRAM OXALATE 10 MG TAB PO SCH (16:18)
[2017-11-01] MEDS: DIGOXIN 0.125 MG TAB PO SCH (16:18)
[2017-11-01] MEDS: BUMETANIDE 1 MG TAB PO SCH (17:28)
[2017-11-01] MEDS: INSULIN GLARGINE SOLOSTAR 100 UNITS/ML 3 ML PEN SQ SCH (21:20)
[2017-11-02] VITALS (11 sets, daily range): BP systolic 106–124; BP diastolic 48–72; PULSE 60–74; TEMP 36.6–37.1; O2SAT 92–99
[2017-11-02] MEDS: ALBUT/IPRATROP 3MG/0.5MG NEB 3 ML VIAL INH SCH ×4 (02:27→19:30)
[2017-11-02] MEDS: HEPARIN SOD 5000 UNIT/0.5 ML CARP SQ SCH ×3 (06:07→21:25)
[2017-11-02] MEDS: LEVOTHYROXINE 50 MCG TAB PO SCH (06:07)
[2017-11-02 06:09] LABS: HEMATOCRIT 32.3 % (37-47); HEMOGLOBIN 10.5 g/dL (12.0-16.0); MEAN CELL VOLUME 87.3 fL (80-100); MEAN CORPUSCULAR HEMOGLOBIN 28.4 pg (25-34); MEAN CORPUSCULAR HGB CONC 32.5 g/dl (32-36); MEAN PLATELET VOLUME 8.3 fL (7.4-10.4); PLATELET COUNT 201 K/uL (130-400); WHITE BLOOD COUNT 7.65 K/uL (4.8-10.8)
[2017-11-02 06:40] LABS: CALCIUM 8.3 mg/dl (8.5-10.1); CREATININE 2.24 mg/dl (0.60-1.20); POTASSIUM 4.7 mmol/L (3.5-5.1)
[2017-11-02] MEDS: DILTIAZEM HCL 240 MG CAPCR PO SCH (08:00)
[2017-11-02] MEDS: LORATADINE 10 MG TAB PO SCH (08:00)
[2017-11-02] MEDS: CALCITRIOL 0.25 MCG CAP PO SCH (08:00)
[2017-11-02] MEDS: BUDESONIDE/FORMOTEROL FUMARATE 160/4.5 60 PUFFS/INHALER INH SCH ×2 (08:00→21:17)
[2017-11-02] MEDS: FERROUS SULFATE 325 MG TAB PO SCH (08:00)
[2017-11-02] MEDS: BUMETANIDE 1 MG TAB PO SCH ×2 (08:00→16:41)
[2017-11-02] MEDS: FLUTICASONE PROPIONATE NA SPR 16 GM BTL SCH (08:00)
[2017-11-02] MEDS: ATORVASTATIN 10 MG TAB PO SCH (08:00)
[2017-11-02] MEDS: CLOPIDOGREL BISULFATE 75 MG TAB PO SCH (08:00)
[2017-11-02] MEDS: PANTOprazole SOD 40 MG TAB PO SCH ×2 (08:00→21:18)
[2017-11-02] MEDS: METOPROLOL TARTRATE 100 MG TAB PO SCH ×2 (08:01→21:17)
[2017-11-02] MEDS: MAGNESIUM OXIDE 400 MG TAB PO SCH (08:01)
[2017-11-02] MEDS: ASPIRIN 81 MG ECTAB PO SCH (08:01)
[2017-11-02] MEDS: GUAIFENESIN/CODEINE 100MG/10MG 5ML UDC PO PRN ×2 (08:03→21:33)
[2017-11-02] MEDS: INSULIN ASPART 100 UNITS/ML 3 ML PEN SC SCH ×4 (09:01→21:25)
[2017-11-02] MEDS: INSULIN GLARGINE SOLOSTAR 100 UNITS/ML 3 ML PEN SC SCH (09:02)
--- NOTE | 2017-11-02 12:44 | Nephrology Progress Note ---
Nephrology Progress Note Date of Service Nov 02, 2017. Chief Complaint KYLEIGH/CKD Subjective Lisa was seen and evaluated with her daughter at the bedside. Lisa was resting comfortably in her bedside chair. She feels well. She denies significant dyspnea. She denies fevers or chills. Vyas remains intact. Appetite is good. Lisa denies any GI complaints. Review of Systems A complete review of systems was performed. Pertinent positives are noted above. All other systems are negative. Vital Signs Last 8 Hrs Date Time Temp Pulse Resp B/P (MAP) Pulse Ox O2 Delivery O2 Flow Rate FiO2 11/02/17 11:45 36.9 70 18 106/48 (67) 93 Room Air 11/02/17 08:00 99 Room Air 11/02/17 07:53 36.8 68 18 118/58 (78) 98 Room Air 11/02/17 07:04 60 16 97 Room Air Last Recorded Weight Weight (Kilograms): 71.400 Physical Exam General Appearance: no apparent distress, + thin Head: normocephalic, atraumatic Eyes: normal inspection, sclerae normal ENT: normal ENT inspection, pharynx normal Neck: supple, + JVD Respiratory/Chest: lungs clear, no respiratory distress, no accessory muscle use Cardiovascular: regular rate, rhythm, no gallop Abdomen/GI: non tender, soft Genitourinary - Female: + pertinent finding (Vyas with clear yellow urine) Extremities/Musculoskelatal: normal inspection, no pedal edema Neurologic/Psych: alert, normal mood/affect Family History FH: ALS (amyotrophic lateral sclerosis) FH: diabetes mellitus Omitted secondary to age had been on HD for 5 years prior to his . Cause of ESRD is unknown Social History Alcohol Use: none Drug Use: none Marital Status: Housing Status: assisted living Occupation: retired . Retired. Resides in assisted living Laboratory Results Past 24 Hours 11/02/17 05:57 11/02/17 05:57 Test 11/01/17 16:39 11/01/17 19:56 11/02/17 05:57 11/02/17 08:13 Bedside Glucose 156 mg/dl (70-90) 214 mg/dl (70-90) 169 mg/dl (70-90) Red Blood Count 3.70 M/uL (4.2-5.4) Mean Corpuscular Volume 87.3 fL (80-100) Mean Corpuscular Hemoglobin 28.4 pg (25-34) Mean Corpuscular Hemoglobin Concent 32.5 g/dl (32-36) RDW Standard Deviation 42.0 fL (36.4-46.3) RDW Coefficient of Variation 13.0 % (11.5-14.5) Mean Platelet Volume 8.3 fL (7.4-10.4) Anion Gap 6.0 mmol/L (3-11) Est Creatinine Clear Calc Drug Dose 16.5 ml/min Estimated GFR () 22.0 Estimated GFR (Non- 19.0 BUN/Creatinine Ratio 20.4 (10-20) Calcium Level 8.3 mg/dl (8.5-10.1) Test 11/02/17 11:56 Bedside Glucose 264 mg/dl (70-90) Allergies Coded Allergies: Fenofibrate (Verified Allergy, Intermediate, rash, 10/30/17) Amoxicillin (Verified Allergy, Unknown, UNKNOWN, 10/30/17) Calcium Carbonate (Verified Allergy, Unknown, ., 10/30/17) Ciprofloxacin (Verified Allergy, Unknown, ., 10/30/17) Diphenhydramine (Verified Allergy, Unknown, ., 10/30/17) Fexofenadine (Verified Allergy, Unknown, UNKNOWN, 10/30/17) Irbesartan (Verified Allergy, Unknown, UNKNOWN, 10/30/17) Lidocaine (Verified Allergy, Unknown, ., 10/30/17) Niacin (Verified Allergy, Unknown, RASH, 10/30/17) Nystatin (Verified Allergy, Unknown, ., 10/30/17) Penicillins (Verified Allergy, Unknown, UNKNOWN, 10/30/17) Sulfa Antibiotics (Verified Allergy, Unknown, UNKNOWN, 10/30/17) Flumazenil (Verified Adverse Reaction, Intermediate, DELIRIUM, 10/30/17) anxious, increased heart rate, increased blood pressure Tomato (Verified Adverse Reaction, Unknown, GI SYMPTOMS, 10/30/17) Medications Current Inpatient Medications Medications (Trade) Dose Ordered Sig/Leslee Route Start Time Stop Time Status Last Admin Dose Admin Albuterol Sulfate (Ventolin 0.5% 2.5MG/0.5ML Neb) 2.5 mg Q6H PRN INH 10/30/17 14:00 11/29/17 13:59 10/30/17 18:32 2.5 MG Aspirin (Ecotrin Tab) 81 mg QAM PO 10/31/17 08:00 11/30/17 08:59 11/02/17 08:01 81 MG Atorvastatin Calcium (Lipitor Tab) 10 mg DAILY PO 10/31/17 08:00 11/30/17 08:59 11/02/17 08:00 10 MG Benzonatate (Tessalon Perles Cap) 100 mg TID PRN PO 10/30/17 14:00 11/29/17 13:59 11/01/17 09:12 100 MG Budesonide/ Formoterol Fumarate (Symbicort 160/ 4.5 Inh) 2 puffs BID INH 10/30/17 20:00 11/29/17 20:59 11/02/17 08:00 2 PUFFS Calcitriol (Rocaltrol Cap) 0.25 mcg Q2D PO 10/31/17 09:00 11/30/17 08:59 11/02/17 08:00 0.25 MCG Clopidogrel Bisulfate (plAVix TAB) 75 mg DAILY PO 10/31/17 08:00 11/30/17 08:59 11/02/17 08:00 75 MG Digoxin (Lanoxin Tab) 0.125 mg MoWeFr@1600 PO 10/30/17 16:30 11/29/17 16:29 11/01/17 16:18 0.125 MG Docusate Sodium (coLACE CAP) 100 mg BID PRN PO 10/30/17 14:00 11/29/17 13:59 Levothyroxine Sodium (Synthroid Tab) 50 mcg DAILYBB PO 10/31/17 06:30 11/30/17 06:59 11/02/17 06:07 50 MCG Loratadine (Claritin Tab) 10 mg QAM PO 10/31/17 08:00 11/30/17 08:59 11/02/17 08:00 10 MG Metoprolol Tartrate (Lopressor Tab) 100 mg BID PO 10/30/17 20:00 11/29/17 20:59 11/02/17 08:01 100 MG Diltiazem HCl (Cardizem Cd Cap) 240 mg DAILY PO 10/31/17 08:00 11/30/17 08:59 11/02/17 08:00 240 MG Pantoprazole Sodium (Protonix Tab) 40 mg BID PO 10/30/17 20:00 11/29/17 20:59 11/02/17 08:00 40 MG Magnesium Oxide (Mag-Ox Tab) 800 mg DAILY PO 10/31/17 08:00 11/30/17 08:59 11/02/17 08:01 800 MG Fluticasone Propionate (Flonase Nasal [place]) 2 sprays DAILY NA 10/31/17 08:00 11/30/17 08:59 11/02/17 08:00 2 SPRAYS Heparin Sodium (Porcine) (Heparin Sq 5000 Unit/0.5ml) 5,000 unit Q8 SQ 10/30/17 22:00 11/29/17 21:59 11/02/17 06:07 5,000 UNIT Acetaminophen (Tylenol Tab) 650 mg Q4H PRN PO 10/30/17 14:00 11/29/17 13:59 Ondansetron HCl (Zofran Inj) 4 mg Q6H PRN IV 10/30/17 14:00 11/29/17 13:59 Insulin Aspart (novoLOG ASPART) SLIDING SCALE If C... ACHS SC 10/30/17 16:30 11/29/17 16:29 11/02/17 09:01 5 UNITS Glucose (Glucose 40% Gel) 15-30 GRAMS 15 GRAMS... UD PRN PO 10/30/17 14:00 11/29/17 13:59 Glucose (Glucose Chew Tab) 4-8 Tablets 4 Tabl... UD PRN PO 10/30/17 14:00 11/29/17 13:59 Dextrose (Dextrose 50% 50ML Syringe) 25-50ML 25ML FOR ... UD PRN IV 10/30/17 14:00 11/29/17 13:59 Glucagon (Glucagon Inj) 1 mg UD PRN SQ 10/30/17 14:00 11/29/17 13:59 Carbohydrates (Carbohydrates For Hypoglycemia) 15-30 GRAMS 15 grams if BSG 54-69... UD PRN PO 10/30/17 14:00 11/29/17 13:59 Ferrous Sulfate (Feosol Tab) 325 mg QAM PO 10/31/17 08:00 11/30/17 08:59 11/02/17 08:00 325 MG Miscellaneous (Iv Fluids Completed) 1 ea PRN PRN N/A 10/30/17 15:00 10/30/18 14:59 Escitalopram Oxalate (Lexapro Tab) 5 mg DAILY@1500 PO 10/31/17 15:00 11/30/17 14:59 11/01/17 16:18 5 MG Albuterol/ Ipratropium (Duoneb) 3 ml Q6R INH 10/31/17 03:00 11/30/17 00:00 11/02/17 07:04 3 ML Insulin Glargine (Lantus Solostar Pen) 10 units QPM SQ 11/01/17 21:00 11/29/17 20:59 11/01/17 21:20 10 UNITS Insulin Glargine (Lantus Solostar Pen) 20 units QAM SC 11/01/17 08:00 12/01/17 07:59 11/02/17 09:02 20 UNITS Codeine Phosphate/ Guaifenesin (Robitussin-AC Sugar Free Syrup) 5 ml Q6H PRN PO 11/01/17 10:15 12/01/17 10:14 11/02/17 08:03 5 ML Bumetanide (Bumex Tab) 1 mg BID17 PO 11/01/17 17:00 12/01/17 16:59 11/02/17 08:00 1 MG Impression (1) Acute kidney injury (2) CKD (chronic kidney disease), stage III (3) Hyponatremia (4) CHF (congestive heart failure) (5) Severe mitral regurgitation (6) Moderate to severe pulmonary hypertension Recommendations Acute on chronic kidney injury and hyponatremia are reflective of decompensated CHF. Volume status and laboratory studies are improving with appropriate diuresis. Bumex dosing acceptable and well tolerated. Continue Bumex 1 mg po BID. I have encouraged patient to reschedule her appoint w/ Dr. Bernardo for AVF creation. Urology recommendations were reviewed. Vyas to remain intact with outpatient follow up. Patient has had difficulty with bladder emptying in the past. Urologic evaluation to be completed as outpatient. 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 Serum calcium normal. She has stable chronic anemia not requiring EPO at this time. She is tolerating oral FeSO4. Follow up with Dr. Urias will be arranged at hospital discharge.
[2017-11-02] MEDS ORDERED: BMX1 PO (14:37)
[2017-11-02] MEDS: ESCITALOPRAM OXALATE 10 MG TAB PO SCH (15:15)
[2017-11-02] MEDS ORDERED: LORAZEPAM 0.5 MG TAB PO ONE (18:30)
[2017-11-02] MEDS ORDERED: NURSING VERBAL MED ORDER ONE (18:30)
--- NOTE | 2017-11-02 20:04 | Progress Note ---
Subjective Date of Service: Nov 02, 2017. Subjective Pt evaluation today including: conversation w/ patient, conversation w/ family , physical exam, lab review, review of inpatient medication list Pain: no pain PO Intake: adequate Voiding: saenz catheter in place patient doing well, breathing comfortably discussed that rehab does not have any beds, she and daughter understand reviewed labs, Cr stable at 2.2, Na up to 130 discussed with case management discussed with Dr. Jim Problem List Medical Problems: (1) Acute bronchitis Status: Acute (2) Altered mental status Status: Acute (3) Anemia Status: Acute (4) Atypical chest pain Status: Acute (5) CHF (congestive heart failure) Status: Chronic (6) CHF exacerbation Status: Acute (7) CKD (chronic kidney disease) Status: Chronic (8) Degenerative disc disease, cervical Status: Acute (9) E86.0 Status: Acute (10) Edema Status: Acute (11) EKG, abnormal Status: Acute (12) Hyperglycemia Status: Acute (13) Hyperglycemia due to type 2 diabetes mellitus Status: Acute (14) Hyponatremia Status: Acute (15) Incarcerated right inguinal hernia Status: Acute (16) Left leg cellulitis Status: Acute (17) Leukocytosis Status: Acute (18) Pneumonia Status: Acute (19) Pneumonitis Status: Acute (20) Pneumonitis Status: Acute (21) Respiratory distress Status: Acute (22) Small bowel obstruction Status: Acute (23) UTI (urinary tract infection) Status: Acute (24) Vomiting and diarrhea Status: Acute (25) Weakness Status: Acute (26) Weakness Status: Acute Review of Systems All Other Systems: Reviewed and Negative Medications Current Inpatient Medications Medications (Trade) Dose Ordered Sig/Leslee Route Start Time Stop Time Status Last Admin Dose Admin Albuterol Sulfate (Ventolin 0.5% 2.5MG/0.5ML Neb) 2.5 mg Q6H PRN INH 10/30/17 14:00 11/29/17 13:59 10/30/17 18:32 2.5 MG Aspirin (Ecotrin Tab) 81 mg QAM PO 10/31/17 08:00 11/30/17 08:59 11/02/17 08:01 81 MG Atorvastatin Calcium (Lipitor Tab) 10 mg DAILY PO 10/31/17 08:00 11/30/17 08:59 11/02/17 08:00 10 MG Benzonatate (Tessalon Perles Cap) 100 mg TID PRN PO 10/30/17 14:00 11/29/17 13:59 11/01/17 09:12 100 MG Budesonide/ Formoterol Fumarate (Symbicort 160/ 4.5 Inh) 2 puffs BID INH 10/30/17 20:00 11/29/17 20:59 11/02/17 08:00 2 PUFFS Calcitriol (Rocaltrol Cap) 0.25 mcg Q2D PO 10/31/17 09:00 11/30/17 08:59 11/02/17 08:00 0.25 MCG Clopidogrel Bisulfate (plAVix TAB) 75 mg DAILY PO 10/31/17 08:00 11/30/17 08:59 11/02/17 08:00 75 MG Digoxin (Lanoxin Tab) 0.125 mg MoWeFr@1600 PO 10/30/17 16:30 11/29/17 16:29 11/01/17 16:18 0.125 MG Docusate Sodium (coLACE CAP) 100 mg BID PRN PO 10/30/17 14:00 11/29/17 13:59 Levothyroxine Sodium (Synthroid Tab) 50 mcg DAILYBB PO 10/31/17 06:30 11/30/17 06:59 11/02/17 06:07 50 MCG Loratadine (Claritin Tab) 10 mg QAM PO 10/31/17 08:00 11/30/17 08:59 11/02/17 08:00 10 MG Metoprolol Tartrate (Lopressor Tab) 100 mg BID PO 10/30/17 20:00 11/29/17 20:59 11/02/17 08:01 100 MG Diltiazem HCl (Cardizem Cd Cap) 240 mg DAILY PO 10/31/17 08:00 11/30/17 08:59 11/02/17 08:00 240 MG Pantoprazole Sodium (Protonix Tab) 40 mg BID PO 10/30/17 20:00 11/29/17 20:59 11/02/17 08:00 40 MG Magnesium Oxide (Mag-Ox Tab) 800 mg DAILY PO 10/31/17 08:00 11/30/17 08:59 11/02/17 08:01 800 MG Fluticasone Propionate (Flonase Nasal [place]) 2 sprays DAILY NA 10/31/17 08:00 11/30/17 08:59 11/02/17 08:00 2 SPRAYS Heparin Sodium (Porcine) (Heparin Sq 5000 Unit/0.5ml) 5,000 unit Q8 SQ 10/30/17 22:00 11/29/17 21:59 11/02/17 14:12 5,000 UNIT Acetaminophen (Tylenol Tab) 650 mg Q4H PRN PO 10/30/17 14:00 11/29/17 13:59 Ondansetron HCl (Zofran Inj) 4 mg Q6H PRN IV 10/30/17 14:00 11/29/17 13:59 Insulin Aspart (novoLOG ASPART) SLIDING SCALE If C... ACHS SC 10/30/17 16:30 11/29/17 16:29 11/02/17 19:18 10 UNITS Glucose (Glucose 40% Gel) 15-30 GRAMS 15 GRAMS... UD PRN PO 10/30/17 14:00 11/29/17 13:59 Glucose (Glucose Chew Tab) 4-8 Tablets 4 Tabl... UD PRN PO 10/30/17 14:00 11/29/17 13:59 Dextrose (Dextrose 50% 50ML Syringe) 25-50ML 25ML FOR ... UD PRN IV 10/30/17 14:00 11/29/17 13:59 Glucagon (Glucagon Inj) 1 mg UD PRN SQ 10/30/17 14:00 11/29/17 13:59 Carbohydrates (Carbohydrates For Hypoglycemia) 15-30 GRAMS 15 grams if BSG 54-69... UD PRN PO 10/30/17 14:00 11/29/17 13:59 Ferrous Sulfate (Feosol Tab) 325 mg QAM PO 10/31/17 08:00 11/30/17 08:59 11/02/17 08:00 325 MG Miscellaneous (Iv Fluids Completed) 1 ea PRN PRN N/A 10/30/17 15:00 10/30/18 14:59 Escitalopram Oxalate (Lexapro Tab) 5 mg DAILY@1500 PO 10/31/17 15:00 11/30/17 14:59 11/02/17 15:15 5 MG Albuterol/ Ipratropium (Duoneb) 3 ml Q6R INH 10/31/17 03:00 11/30/17 00:00 11/02/17 19:30 3 ML Insulin Glargine (Lantus Solostar Pen) 10 units QPM SQ 11/01/17 21:00 11/29/17 20:59 11/01/17 21:20 10 UNITS Insulin Glargine (Lantus Solostar Pen) 20 units QAM SC 11/01/17 08:00 12/01/17 07:59 11/02/17 09:02 20 UNITS Codeine Phosphate/ Guaifenesin (Robitussin-AC Sugar Free Syrup) 5 ml Q6H PRN PO 11/01/17 10:15 12/01/17 10:14 11/02/17 08:03 5 ML Bumetanide (Bumex Tab) 1 mg BID17 PO 11/01/17 17:00 12/01/17 16:59 11/02/17 16:41 1 MG Objective Vital Signs Date Time Temp Pulse Resp B/P (MAP) Pulse Ox O2 Delivery O2 Flow Rate FiO2 11/02/17 19:31 70 16 97 Room Air 11/02/17 16:00 95 Room Air 11/02/17 14:45 36.6 72 18 124/58 (80) 95 Room Air 11/02/17 14:30 69 14 97 Room Air 11/02/17 11:45 36.9 70 18 106/48 (67) 93 Room Air 11/02/17 08:00 99 Room Air 11/02/17 07:53 36.8 68 18 118/58 (78) 98 Room Air 11/02/17 07:04 60 16 97 Room Air 11/02/17 02:27 70 16 92 Room Air 11/02/17 00:24 36.9 74 17 107/67 (80) 92 Room Air 11/02/17 00:00 Room Air 11/01/17 21:00 70 98/60 (73) Physical Exam General Appearance: WD/WN, no apparent distress Eyes: normal inspection, EOMI, sclerae normal ENT: normal ENT inspection, hearing grossly normal, pharynx normal Neck: supple, no adenopathy, no JVD, trachea midline Respiratory/Chest: chest non-tender, lungs clear, normal breath sounds, no respiratory distress, no accessory muscle use Cardiovascular: no edema, no gallop, no JVD, no murmur, + irregularly irregular Abdomen: normal bowel sounds, non tender, soft, no organomegaly Extremities: normal range of motion, non-tender, normal inspection, no pedal edema, no calf tenderness Neurologic/Psychiatric: logistics solution manager II-XII nml as tested, no motor/sensory deficits, alert, normal mood/affect, oriented x 3 Skin: normal color, warm/dry, no rash Laboratory Results Last 24 Hours Test 11/02/17 05:57 11/02/17 08:13 11/02/17 11:56 11/02/17 16:44 White Blood Count 7.65 K/uL Red Blood Count 3.70 M/uL Hemoglobin 10.5 g/dL Hematocrit 32.3 % Mean Corpuscular Volume 87.3 fL Mean Corpuscular Hemoglobin 28.4 pg Mean Corpuscular Hemoglobin Concent 32.5 g/dl RDW Standard Deviation 42.0 fL RDW Coefficient of Variation 13.0 % Platelet Count 201 K/uL Mean Platelet Volume 8.3 fL Sodium Level 130 mmol/L Potassium Level 4.7 mmol/L Chloride Level 94 mmol/L Carbon Dioxide Level 29 mmol/L Anion Gap 6.0 mmol/L Blood Urea Nitrogen 46 mg/dl Creatinine 2.24 mg/dl Est Creatinine Clear Calc Drug Dose 16.5 ml/min Estimated GFR () 22.0 Estimated GFR (Non- 19.0 BUN/Creatinine Ratio 20.4 Random Glucose 178 mg/dl Calcium Level 8.3 mg/dl Bedside Glucose 169 mg/dl 264 mg/dl 240 mg/dl Assessment and Plan 87yo female with multiple medical problems sent from [facility] with complaints of diffuse weakness, SAMUELS and decreased exercise tolerance as well as progressive shortness of breath 1. Hyponatremia - [id number] on admission up to 130 today with diuretics and fluid restriction, was due to volume overload continue Bumex 1mg BID consult nephrology for their recommendations going forward, appreciate Dr. Jim input serum osm was 272 and urine osm was 220 showing an appropriate response by kidneys, no evidence of SIADH random cortisol normal, TSH normal 2. Weakness - most likely secondary to #1 as well as deconditioning patient interested in rehab at [facility], referral made, no beds today, will try again tomorrow 3. KYLEIGH on CKD stage IV - Cr stable at 2.2 today Lasix changed to Bumex 1mg BID this admission, tolerating well should monitor volume status closely, if too dry then 1mg daily, if volume overloaded then 2mg in the AM needs to follow up with vascular specialist soon for fistula creation 4. Atrial fibrillation, chronic - rate controlled, pacemaker in place. Not on anticoagulation -Continue Digoxin, Diltiazem and Lopressor -High CHADS-2 score, however clear records of discussion between her and her deli associate regarding anticoagulation. It was concluded that she would not be treated. She had been on Coumadin for a period and did not tolerate or comply well with treatment. 5. Acute on chronic diastolic and systolic heart failure - SOB, elevated BNP, clinical evidence of failure on admission -Lasix 80mg IV x 1 on admission, excellent response, negative 3 liters, breathing better, no rales on exam -Fluid and sodium restriction -Daily weights here and on discharge -Continue cardiac medications, Lopressor, Digoxin - will use Bumex 1mg BID from now on Urinary retention: saenz placed, excellent output had to see urology a few years ago for similar problem recommend keeping saenz for 7-10 days, can utilize straight cath PRN after that 6. CAD - stable, no evidence of ischemia -Continue ASA, Plavix, Lopressor, Lipitor 7. Diabetes - monitor for hypoglycemia, no episodes resume Lantus 20 units in the AM and 10 units PM Novolog 8. Hypothyroidism - stable, chronic -Continue Synthroid 9. Depression/Anxiety - stable, chronic -Continue Celexa 5mg po daily -Avoid anticholinergic agents given possibility of urinary retention 10. F/E/N - Diuresis as above, goal negative 1L/24 hours. Monitor electrolytes and replete as needed, BID PRP, Continue Magnesium supplementation , DM/Low Na diet with fluid restriction, ground with aspiration precautions as patient reports difficulty swallowing at times. 11. Ppx - Heparin TID. Prevacid 12. Code - DNR per discussion with patient 13. Dispo - plan for [facility] tomorrow if they have a bed
[2017-11-02] MEDS: INSULIN GLARGINE SOLOSTAR 100 UNITS/ML 3 ML PEN SQ SCH (21:25)
[2017-11-03 01:55] VITALS: PULSE 65; O2SAT 97
[2017-11-03] MEDS: ALBUT/IPRATROP 3MG/0.5MG NEB 3 ML VIAL INH SCH ×2 (01:55→07:16)
[2017-11-03] MEDS: LEVOTHYROXINE 50 MCG TAB PO SCH (05:48)
[2017-11-03] MEDS: HEPARIN SOD 5000 UNIT/0.5 ML CARP SQ SCH ×2 (05:53→12:24)
[2017-11-03 07:16] VITALS: PULSE 71; O2SAT 97
[2017-11-03 07:44] LABS: BASO % 0.3 %; BASO ABS # 0.02 K/uL (0-0.2); EOS ABS # 0.24 K/uL (0-0.5); HEMATOCRIT 33.3 % (37-47); IG# 0.02 K/uL (0.00-0.02); LYMPH % 16.1 %; LYMPH ABS # 1.29 K/uL (1.2-3.4); MEAN CELL VOLUME 88.3 fL (80-100); MEAN CORPUSCULAR HEMOGLOBIN 29.2 pg (25-34); MEAN PLATELET VOLUME 8.5 fL (7.4-10.4); MONO % 7.5 %; NEUT % 72.8 %; NEUT ABS # 5.82 K/uL (1.4-6.5); PLATELET COUNT 215 K/uL (130-400); RED CELL DISTRIBUTION WIDTH CV 13.2 % (11.5-14.5); RED CELL DISTRIBUTION WIDTH SD 42.5 fL (36.4-46.3); WHITE BLOOD COUNT 7.99 K/uL (4.8-10.8)
[2017-11-03] MEDS: CLOPIDOGREL BISULFATE 75 MG TAB PO SCH (07:49)
[2017-11-03] MEDS: MAGNESIUM OXIDE 400 MG TAB PO SCH (07:49)
[2017-11-03] MEDS: PANTOprazole SOD 40 MG TAB PO SCH (07:49)
[2017-11-03] MEDS: DILTIAZEM HCL 240 MG CAPCR PO SCH (07:49)
[2017-11-03] MEDS: BUMETANIDE 1 MG TAB PO SCH (07:49)
[2017-11-03] MEDS: ATORVASTATIN 10 MG TAB PO SCH (07:49)
[2017-11-03] MEDS: LORATADINE 10 MG TAB PO SCH (07:49)
[2017-11-03] MEDS: FERROUS SULFATE 325 MG TAB PO SCH (07:50)
[2017-11-03] MEDS: METOPROLOL TARTRATE 100 MG TAB PO SCH (07:50)
[2017-11-03] MEDS: ASPIRIN 81 MG ECTAB PO SCH (07:50)
[2017-11-03] MEDS: BUDESONIDE/FORMOTEROL FUMARATE 160/4.5 60 PUFFS/INHALER INH SCH (07:50)
[2017-11-03] MEDS: FLUTICASONE PROPIONATE NA SPR 16 GM BTL SCH (07:50)
[2017-11-03 07:52] VITALS: BP 133/72; PULSE 71; TEMP 36.5; O2SAT 99
[2017-11-03 08:15] LABS: CALCIUM 8.1 mg/dl (8.5-10.1); CREATININE 2.23 mg/dl (0.60-1.20); POTASSIUM 4.8 mmol/L (3.5-5.1)
[2017-11-03] MEDS: INSULIN ASPART 100 UNITS/ML 3 ML PEN SC SCH ×2 (08:49→11:00)
[2017-11-03] MEDS: INSULIN GLARGINE SOLOSTAR 100 UNITS/ML 3 ML PEN SC SCH (08:49)
[2017-11-03 09:38] VITALS: BP 133/72; PULSE 71; TEMP 36.5; O2SAT 99
[2017-11-03] MEDS ORDERED: LORA-741 PO (09:40)
--- NOTE | 2017-11-03 09:53 | Discharge Instructions ---
Discharge Instructions Date of Service Nov 03, 2017. Admission Reason for Admission: Hyponatremia Discharge Discharge Diagnosis / Problem: Hyponatremia, CKD stage IV, Acute combined heart failure Discharge Goals Goal(s): Improve function, Increase independence, Improve disease control, Specific goals (follow up with Dr. Bernardo for AVF creation) Activity Recommendations Activity Level: OOB In Chair, Assistance Required Therapies: Physical Therapy, Occupational Therapy Lifting Limitations: none Exercise/Sports Limitations: as tolerated Shower/Bathe: no limitations . Additional Information Patient informed of condition: Yes Advance Directives: Yes DNR: Yes Level of Care: Acute Rehab Communicable Disease: No Prognosis: Improving Oxygen at (LPM): none Saenz Catheter: Yes Instructions / Follow-Up Instructions / Follow-Up Medications: - BUMEX: 1mg twice a day, this replaces Lasix. If patient gains weight then she should take 2mg in the morning and 1mg in afternoon, if she appears too dry then only use 1mg in the morning and none in the afternoon - ATIVAN: 0.5mg PO daily only as needed for anxiety, should not take every day, only for situations of extreme anxiety and agitation 1. Hyponatremia - [id number] on admission up to 131 today with diuretics and fluid restriction, was due to volume overload at baseline her sodium level is in the low 130's so situation is resolved continue Bumex 1mg BID 2. Weakness - most likely secondary to #1 as well as deconditioning patient interested in rehab at [facility], transfer today 3. KYLEIGH on CKD stage IV - Cr stable at 2.2 today Lasix changed to Bumex 1mg BID this admission, tolerating well should monitor volume status closely, if too dry then 1mg daily, if volume overloaded then 2mg in the AM see below for heart failure instructions needs to follow up with vascular specialist soon for fistula creation, in [place] appointment should be made within a week of being discharged from rehab needs to follow up with her client care manager in [place] shortly after discharge from rehab, go over changes 4. Atrial fibrillation, chronic - rate controlled, pacemaker in place. Not on anticoagulation -Continue Digoxin, Diltiazem and Lopressor -High CHADS-2 score, however clear records of discussion between her and her payment specialist regarding anticoagulation. It was concluded that she would not be treated. She had been on Coumadin for a period and did not tolerate or comply well with treatment. 5. Acute on chronic diastolic and systolic heart failure - SOB, elevated BNP, clinical evidence of failure on admission -Lasix 80mg IV x 1 on admission, excellent response, negative 3 liters, breathing better, no rales on exam -Fluid and sodium restriction - will use Bumex 1mg BID from now on -Daily weights, her weight today is 71.1kg (156.4lbs) If weight goes up to 159lbs at any time, then should have Bumex 2mg in the morning to get extra fluid off -Continue cardiac medications, Lopressor, Digoxin Urinary retention: saenz placed, excellent output had to see urology a few years ago for similar problem recommend keeping saenz for 7-10 days, can utilize straight cath PRN after that please arrange for follow up with Dr. Adamse in the [facility] office in 1-2 weeks 6. CAD - stable, no evidence of ischemia -Continue ASA, Plavix, Lopressor, Lipitor 7. Diabetes - monitor for hypoglycemia, no episodes resume Lantus 20 units in the AM and 10 units PM Novolog 8. Hypothyroidism - stable, chronic -Continue Synthroid 9. Depression/Anxiety - stable, chronic -Continue Celexa 5mg po daily -benefitted a lot from one dose of Ativan 0.5mg PO in evening of 11/02, slept the best she has in months - can utilize Ativan only as needed, script provided FOLLOW UP - physician at [facility] this week - Dr. Bernardo, vascular surgeon in [place], within a week of being discharged from [facility], needs AVF creation - Dr. Adames, urology, 7-10 days - Dr. Urias, client care manager in [place], 2 weeks after discharge from [facility] - Dr. Deion Downs, one week after discharge from [facility] Current Hospital Diet Patient's current hospital diet: Diabetes Type 2 Diet, Low Sodium Diet (2gm Na) Discharge Diet Recommended Diet: Low Sodium Diet (2gm Na), Diabetes Type 2 Diet Pending Studies Studies pending at discharge: no Physician Orders On Transfer Weigh: daily, current weight on discharge is 71.1kg, please check weight today at [facility] to see what her weight is on your scale and record this as dry weight Additional Orders: keep saenz for 7 more day, pull on 11/11, may perform straight catheterization for any post void bladder scan of >300cc POLST Discussion: Not Applicable Laboratory Results Hemoglobin A1c Test 10/10/17 09:23 Range/Units Estimated Average Glucose 183 mg/dl Hemoglobin A1c 8.0 H 4.5-5.6 % Medical Emergencies . Who to Call and When: Medical Emergencies: If at any time you feel your situation is an emergency, please call 911 immediately. . Non-Emergent Contact Non-Emergency issues call your: Primary Care Provider, Lead Nitrate Processor Call Non-Emergent contact if: you have any medication questions . . "Provider Documentation" section prepared by Omar Perez. . Core Measure Problem Core Measures: None [place] Drug Monitoring Program Search Results: no issues identified
--- NOTE | 2017-11-03 12:12 | Nephrology Progress Note ---
Nephrology Progress Note Date of Service Nov 03, 2017. Chief Complaint KYLEIGH/CKD Subjective No acute events overnight. No complaints this AM. Lisa is breathing comfortably. She feels well. She notes some persistent weakness but activity tolerance is improving. No fevers or chills. Appetite is good. Lisa denies any nausea or GI complaints. Review of Systems A complete review of systems was performed. Pertinent positives are noted above. All other systems are negative. Vital Signs Last 8 Hrs Date Time Temp Pulse Resp B/P (MAP) Pulse Ox O2 Delivery O2 Flow Rate FiO2 11/03/17 09:38 36.5 71 16 99 Room Air 11/03/17 08:00 Room Air 11/03/17 07:52 36.5 71 16 133/72 (92) 99 Room Air 11/03/17 07:16 71 16 97 Room Air Last Recorded Weight Weight (Kilograms): 71.100 Physical Exam General Appearance: no apparent distress, + thin Head: normocephalic, atraumatic Eyes: normal inspection, sclerae normal ENT: normal ENT inspection, pharynx normal Neck: supple, no JVD Respiratory/Chest: lungs clear, no respiratory distress, no accessory muscle use Cardiovascular: regular rate, rhythm, + systolic murmur Abdomen/GI: non tender, soft Extremities/Musculoskelatal: normal inspection, no pedal edema Neurologic/Psych: alert, normal mood/affect Family History FH: ALS (amyotrophic lateral sclerosis) FH: diabetes mellitus Omitted secondary to age had been on HD for 5 years prior to his . Cause of ESRD is unknown Social History Alcohol Use: none Drug Use: none Marital Status: Housing Status: assisted living Occupation: retired . Retired. Resides in assisted living Laboratory Results Past 24 Hours 11/03/17 07:32 Red Blood Count 3.77, Mean Corpuscular Volume 88.3, Mean Corpuscular Hemoglobin 29.2, Mean Corpuscular Hemoglobin Concent 33.0, Mean Platelet Volume 8.5, Neutrophils (%) (Auto) 72.8, Lymphocytes (%) (Auto) 16.1, Monocytes (%) (Auto) 7.5, Eosinophils (%) (Auto) 3.0, Basophils (%) (Auto) 0.3, Neutrophils # (Auto) 5.82, Lymphocytes # (Auto) 1.29, Monocytes # (Auto) 0.60, Eosinophils # (Auto) 0.24, Basophils # (Auto) 0.02 11/03/17 07:32 Test 11/02/17 16:44 11/02/17 21:15 11/03/17 07:32 11/03/17 07:55 Bedside Glucose 240 mg/dl (70-90) 231 mg/dl (70-90) 121 mg/dl (70-90) White Blood Count 7.99 K/uL (4.8-10.8) Red Blood Count 3.77 M/uL (4.2-5.4) Hemoglobin 11.0 g/dL (12.0-16.0) Hematocrit 33.3 % (37-47) Mean Corpuscular Volume 88.3 fL (80-100) Mean Corpuscular Hemoglobin 29.2 pg (25-34) Mean Corpuscular Hemoglobin Concent 33.0 g/dl (32-36) Platelet Count 215 K/uL (130-400) Mean Platelet Volume 8.5 fL (7.4-10.4) Neutrophils (%) (Auto) 72.8 % Lymphocytes (%) (Auto) 16.1 % Monocytes (%) (Auto) 7.5 % Eosinophils (%) (Auto) 3.0 % Basophils (%) (Auto) 0.3 % Neutrophils # (Auto) 5.82 K/uL (1.4-6.5) Lymphocytes # (Auto) 1.29 K/uL (1.2-3.4) Monocytes # (Auto) 0.60 K/uL (0.11-0.59) Eosinophils # (Auto) 0.24 K/uL (0-0.5) Basophils # (Auto) 0.02 K/uL (0-0.2) RDW Standard Deviation 42.5 fL (36.4-46.3) RDW Coefficient of Variation 13.2 % (11.5-14.5) Immature Granulocyte % (Auto) 0.3 % Immature Granulocyte # (Auto) 0.02 K/uL (0.00-0.02) Anion Gap 7.0 mmol/L (3-11) Est Creatinine Clear Calc Drug Dose 16.5 ml/min Estimated GFR () 22.1 Estimated GFR (Non- 19.1 BUN/Creatinine Ratio 21.3 (10-20) Calcium Level 8.1 mg/dl (8.5-10.1) Test 11/03/17 11:36 Bedside Glucose 245 mg/dl (70-90) Allergies Coded Allergies: Fenofibrate (Verified Allergy, Intermediate, rash, 10/30/17) Amoxicillin (Verified Allergy, Unknown, UNKNOWN, 10/30/17) Calcium Carbonate (Verified Allergy, Unknown, ., 10/30/17) Ciprofloxacin (Verified Allergy, Unknown, ., 10/30/17) Diphenhydramine (Verified Allergy, Unknown, ., 10/30/17) Fexofenadine (Verified Allergy, Unknown, UNKNOWN, 10/30/17) Irbesartan (Verified Allergy, Unknown, UNKNOWN, 10/30/17) Lidocaine (Verified Allergy, Unknown, ., 10/30/17) Niacin (Verified Allergy, Unknown, RASH, 10/30/17) Nystatin (Verified Allergy, Unknown, ., 10/30/17) Penicillins (Verified Allergy, Unknown, UNKNOWN, 10/30/17) Sulfa Antibiotics (Verified Allergy, Unknown, UNKNOWN, 10/30/17) Flumazenil (Verified Adverse Reaction, Intermediate, DELIRIUM, 10/30/17) anxious, increased heart rate, increased blood pressure Tomato (Verified Adverse Reaction, Unknown, GI SYMPTOMS, 10/30/17) Medications Current Inpatient Medications Medications (Trade) Dose Ordered Sig/Leslee Route Start Time Stop Time Status Last Admin Dose Admin Albuterol Sulfate (Ventolin 0.5% 2.5MG/0.5ML Neb) 2.5 mg Q6H PRN INH 10/30/17 14:00 11/29/17 13:59 10/30/17 18:32 2.5 MG Aspirin (Ecotrin Tab) 81 mg QAM PO 10/31/17 08:00 11/30/17 08:59 11/03/17 07:50 81 MG Atorvastatin Calcium (Lipitor Tab) 10 mg DAILY PO 10/31/17 08:00 11/30/17 08:59 11/03/17 07:49 10 MG Benzonatate (Tessalon Perles Cap) 100 mg TID PRN PO 10/30/17 14:00 11/29/17 13:59 11/01/17 09:12 100 MG Budesonide/ Formoterol Fumarate (Symbicort 160/ 4.5 Inh) 2 puffs BID INH 10/30/17 20:00 11/29/17 20:59 11/03/17 07:50 2 PUFFS Calcitriol (Rocaltrol Cap) 0.25 mcg Q2D PO 10/31/17 09:00 11/30/17 08:59 11/02/17 08:00 0.25 MCG Clopidogrel Bisulfate (plAVix TAB) 75 mg DAILY PO 10/31/17 08:00 11/30/17 08:59 11/03/17 07:49 75 MG Digoxin (Lanoxin Tab) 0.125 mg MoWeFr@1600 PO 10/30/17 16:30 11/29/17 16:29 11/01/17 16:18 0.125 MG Docusate Sodium (coLACE CAP) 100 mg BID PRN PO 10/30/17 14:00 11/29/17 13:59 Levothyroxine Sodium (Synthroid Tab) 50 mcg DAILYBB PO 10/31/17 06:30 11/30/17 06:59 11/03/17 05:48 50 MCG Loratadine (Claritin Tab) 10 mg QAM PO 10/31/17 08:00 11/30/17 08:59 11/03/17 07:49 10 MG Metoprolol Tartrate (Lopressor Tab) 100 mg BID PO 10/30/17 20:00 11/29/17 20:59 11/03/17 07:50 100 MG Diltiazem HCl (Cardizem Cd Cap) 240 mg DAILY PO 10/31/17 08:00 11/30/17 08:59 11/03/17 07:49 240 MG Pantoprazole Sodium (Protonix Tab) 40 mg BID PO 10/30/17 20:00 11/29/17 20:59 11/03/17 07:49 40 MG Magnesium Oxide (Mag-Ox Tab) 800 mg DAILY PO 10/31/17 08:00 11/30/17 08:59 11/03/17 07:49 800 MG Fluticasone Propionate (Flonase Nasal [place]) 2 sprays DAILY NA 10/31/17 08:00 11/30/17 08:59 11/03/17 07:50 2 SPRAYS Heparin Sodium (Porcine) (Heparin Sq 5000 Unit/0.5ml) 5,000 unit Q8 SQ 10/30/17 22:00 11/29/17 21:59 11/03/17 05:53 5,000 UNIT Acetaminophen (Tylenol Tab) 650 mg Q4H PRN PO 10/30/17 14:00 11/29/17 13:59 Ondansetron HCl (Zofran Inj) 4 mg Q6H PRN IV 10/30/17 14:00 11/29/17 13:59 Insulin Aspart (novoLOG ASPART) SLIDING SCALE If C... ACHS SC 10/30/17 16:30 11/29/17 16:29 11/03/17 08:49 8 UNITS Glucose (Glucose 40% Gel) 15-30 GRAMS 15 GRAMS... UD PRN PO 10/30/17 14:00 11/29/17 13:59 Glucose (Glucose Chew Tab) 4-8 Tablets 4 Tabl... UD PRN PO 10/30/17 14:00 11/29/17 13:59 Dextrose (Dextrose 50% 50ML Syringe) 25-50ML 25ML FOR ... UD PRN IV 10/30/17 14:00 11/29/17 13:59 Glucagon (Glucagon Inj) 1 mg UD PRN SQ 10/30/17 14:00 11/29/17 13:59 Carbohydrates (Carbohydrates For Hypoglycemia) 15-30 GRAMS 15 grams if BSG 54-69... UD PRN PO 10/30/17 14:00 11/29/17 13:59 Ferrous Sulfate (Feosol Tab) 325 mg QAM PO 10/31/17 08:00 11/30/17 08:59 11/03/17 07:50 325 MG Miscellaneous (Iv Fluids Completed) 1 ea PRN PRN N/A 10/30/17 15:00 10/30/18 14:59 Escitalopram Oxalate (Lexapro Tab) 5 mg DAILY@1500 PO 10/31/17 15:00 11/30/17 14:59 11/02/17 15:15 5 MG Albuterol/ Ipratropium (Duoneb) 3 ml Q6R INH 10/31/17 03:00 11/30/17 00:00 11/03/17 07:16 3 ML Insulin Glargine (Lantus Solostar Pen) 10 units QPM SQ 11/01/17 21:00 11/29/17 20:59 11/02/17 21:25 10 UNITS Insulin Glargine (Lantus Solostar Pen) 20 units QAM SC 11/01/17 08:00 12/01/17 07:59 11/03/17 08:49 20 UNITS Codeine Phosphate/ Guaifenesin (Robitussin-AC Sugar Free Syrup) 5 ml Q6H PRN PO 11/01/17 10:15 12/01/17 10:14 11/02/17 21:33 5 ML Bumetanide (Bumex Tab) 1 mg BID17 PO 11/01/17 17:00 12/01/17 16:59 11/03/17 07:49 1 MG Impression (1) Acute kidney injury (2) CKD (chronic kidney disease), stage III (3) Hyponatremia (4) CHF (congestive heart failure) (5) Severe mitral regurgitation (6) Moderate to severe pulmonary hypertension Acute on chronic kidney injury and hyponatremia are reflective of decompensated CHF. Volume status and laboratory studies are improving with appropriate diuresis. Bumex dosing acceptable and well tolerated. Continue Bumex 1 mg po BID. Patient will follow up as outpatient with appoint w/ Dr. Bernardo for AVF creation. Vyas to remain intact pending urology outpatient follow up. Patient has had difficulty with bladder emptying in the past. Urologic evaluation to be completed as outpatient. 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 Serum calcium normal. She has stable chronic anemia not requiring EPO at this time. She is tolerating oral FeSO4. Follow up with Dr. Urias will be arranged at hospital discharge.
== END 2017-11-03 13:10 | DRG 682 ==
LOC: EDBD 10:52 → C.EDC 10:54 → C.4E 14:33 → EDBEDREQ 14:42 → ENRESERV 15:17 → OBSVTOIN 10-31 16:57
PROVIDERS: ADMIT Internal Medicine; ATTEND Internal Medicine
DX: N17.9 Acute kidney failure, unspecified (principal); I50.43 Acute on chronic combined systolic (congestive) and diastolic (congestive) heart failure; I13.0 Hypertensive heart and chronic kidney disease with heart failure and stage 1 through stage 4 chronic kidney disease, or unspecified chronic kidney disease; E87.1 Hypo-osmolality and hyponatremia; E11.22 Type 2 diabetes mellitus with diabetic chronic kidney disease; N18.4 Chronic kidney disease, stage 4 (severe); K21.9 Gastro-esophageal reflux disease without esophagitis; I48.2 Chronic atrial fibrillation; R33.9 Retention of urine, unspecified; I25.10 Atherosclerotic heart disease of native coronary artery without angina pectoris; E03.9 Hypothyroidism, unspecified; F32.9 Major depressive disorder, single episode, unspecified; F41.9 Anxiety disorder, unspecified; R53.1 Weakness; Z66 Do not resuscitate; Z79.02 Long term (current) use of antithrombotics/antiplatelets; Z79.4 Long term (current) use of insulin; Z79.82 Long term (current) use of aspirin; Z79.899 Other long term (current) drug therapy; Z88.0 Allergy status to penicillin; Z88.1 Allergy status to other antibiotic agents; Z88.2 Allergy status to sulfonamides

== ENCOUNTER 2017-11-15 15:26 | Emergency (ER) | payer OTHER, MEDICARE ==
[~2017-11-15] VITALS: Ht 160 cm; Wt 64.7 kg
[~2017-11-15 15:26] MED LIST changes: +ATOR10TA82 PO; +BENZ100C84 PO; +BMX1 PO; +CALC0.2510 PO; -CHOL1CAP57 PO; +CLOP1TAB15 PO; +DILT240C74 PO; -DLTCD/240 PO; +ERGO500037 PO; +ESCI10TA17 PO; -FERR1TAB13 PO; +GUAI600T49 PO; +INSDGIPEN SQ; +LACT10SO3 PO; +LANS15CA15 PO; -LANS30CA12 PO; +MAGN250T16 PO; -MAGN400T6 PO; +MOME6000 NAE; +POLY335019 PO; +PRVIN525X NEB; +SYMIN160 INH
[2017-11-15 16:04] VITALS: TEMP 36.3; Ht 160 cm; Wt 64.7 kg
--- NOTE | 2017-11-15 16:13 | EMERGENCY ROOM VISIT NOTE ---
History Report prepared by Scribe: Melania Villavicencio Under the Supervision of: Dr. Nathalie Lopez D.O. First contact with patient: 16:01 Chief Complaint: ARM PAIN Stated Complaint: ARM PAIN/HEMATOMA/DIZZINESS History of Present Illness The patient is an 87 year old female who presents to the Emergency Room with complaints of persistent right arm pain since yesterday. She was brought to the ED via EMS. She reports she started experiencing pain "weeks ago", but this morning woke up with a large hematoma on the arm. She denies any known injuries or trauma to the area. She saw her doctor at [facility] in [place] today and was referred here to the ED for her pain and "feeling weak and dizzy" in the office. She states "I never get dizzy, I couldn't even walk earlier". She rates her arm pain as a 10/10 in severity. Movement worsens her discomfort. She can still move her fingers and feel normal sensation in the arm. She notes she was recently in rehab, but denies any known trauma to her right arm while she was there. The patient does take a daily blood thinner for a history of CHF. She also complains of "a real bad cough" and nausea. Her son states she was constipated earlier in the week and took a laxative recently, which caused the patient to be on the toilet for "2 hours". Source of History: patient Onset: yesterday Position: arm (right) Symptom Intensity: 10/10 Timing: other (persistent) Modifying Factors (Worsening): movement Associated Symptoms: + cough, + nausea, + weakness Review of Systems See HPI for pertinent positives & negatives. A total of 10 systems reviewed and were otherwise negative. Past Medical & Surgical Medical Problems: (1) Acute bronchitis with bronchiectasis (2) Acute exacerbation of CHF (congestive heart failure) (3) Acute on chronic systolic (congestive) heart failure (4) Atrial fibrillation (5) CHF (congestive heart failure) (6) Chronic kidney disease (7) CKD (chronic kidney disease) (8) CKD (chronic kidney disease), stage III (9) Cough (10) DM (diabetes mellitus) (11) GERD (gastroesophageal reflux disease) (12) Hypertension (13) Hyponatremia (14) Moderate to severe pulmonary hypertension (15) Pacemaker (16) PNA (pneumonia) (17) Renal failure (18) SBO (small bowel obstruction) (19) Severe mitral regurgitation Surgical Problems: (1) History of cardiac cath (2) S/P quintuple vessel bypass Family History FH: ALS (amyotrophic lateral sclerosis) FH: diabetes mellitus Omitted secondary to age Social History Smoking Status: Never Smoker Alcohol Use: none Drug Use: none Marital Status: Housing Status: other Occupation Status: retired Current/Historical Medications Scheduled Aspirin (Aspirin Ec), 81 MG PO QAM Biotin (Biotin), 10,000 MCG PO DAILY Bumetanide (Bumex), 1 MG PO BID Calcitriol (Calcitriol), 0.25 MCG PO Q48HRS Cholecalciferol (Vitamin D3), 1,000 INTER.UNIT PO DAILY Clopidogrel Bisulfate (Clopidogrel), 75 MG PO DAILY Cranberry (Vaccinium Macrocarp (Cranberry), 1,000 MG PO BID Cyanocobalamin (Vitamin B12), 1,000 MCG PO QAM Digoxin (Digoxin), 0.125 MG PO 3XWK Diltiazem Hcl (Diltiazem Cd), 240 MG PO DAILY Escitalopram Oxalate (Escitalopram Oxalate), 5 MG PO DAILY Fluticasone Propionate (Nasal) (Flonase Allergy Relief), 2 SPRAYS ANTOINE DAILY Insulin Glargine (Basaglar Kwikpen), 30 UNITS SC QAM Lansoprazole (Prevacid), 30 MG PO DAILY Levalbuterol (Levalbuterol HCl), 3 ML NEB TID Levothyroxine Sodium (Levothyroxine Sodium), 50 MCG PO QAM Loratadine (Claritin), 10 MG PO QAM Magnesium Oxide (Mg Supplement (Magnesium Oxide), 400 MG PO DAILY Metoprolol Tartrate (Lopressor) (Lopressor), 100 MG PO BID Nitrofurantoin Macrocrystals (Nitrofurantoin Macrocryst), 50 MG PO HS Olmesartan Medoxomil (Olmesartan Medoxomil), 5 MG PO DAILY [place]-3 Fatty Acids (Brandywine 3), 2 CAP PO BID Tiotropium [place]-Olodaterol (Stiolto Respimat 2.5-2.5 Mcg/Act), 2 PUFFS INH DAILY Scheduled PRN Acetaminophen (Tylenol), 500 MG PO Q4H PRN for Pain Benzonatate (Benzonatate), 100 MG PO TID PRN for Cough Buspirone Hcl (Buspirone Hcl), 5 MG PO BID PRN for Anxiety Docusate Sodium (Docusate Sodium), 100 MG PO BID PRN for Constipation Guaifenesin Ext Rel (Mucinex Ext Rel), 600 MG PO Q12 PRN for Congestion Guaifenesin/Codeine (Robitussin-Ac Syrup), 10 ML PO Q6H PRN for Cough/Congestion Lorazepam (Ativan), 0.5 MG PO DAILY PRN for Anxiety Nitroglycerin (Nitrostat), 0.4 MG UT UD PRN for Chest Pain Polyethylene Glycol 3350 (Miralax), 17 GM PO UD PRN for Constipation Allergies Coded Allergies: Fenofibrate (Verified Allergy, Intermediate, rash, 10/30/17) Amoxicillin (Verified Allergy, Unknown, UNKNOWN, 10/30/17) Calcium Carbonate (Verified Allergy, Unknown, ., 10/30/17) Ciprofloxacin (Verified Allergy, Unknown, ., 10/30/17) Diphenhydramine (Verified Allergy, Unknown, ., 10/30/17) Fexofenadine (Verified Allergy, Unknown, UNKNOWN, 10/30/17) Irbesartan (Verified Allergy, Unknown, UNKNOWN, 10/30/17) Lidocaine (Verified Allergy, Unknown, ., 10/30/17) Niacin (Verified Allergy, Unknown, RASH, 10/30/17) Nystatin (Verified Allergy, Unknown, ., 10/30/17) Penicillins (Verified Allergy, Unknown, UNKNOWN, 10/30/17) Sulfa Antibiotics (Verified Allergy, Unknown, UNKNOWN, 10/30/17) Flumazenil (Verified Adverse Reaction, Intermediate, DELIRIUM, 10/30/17) anxious, increased heart rate, increased blood pressure Tomato (Verified Adverse Reaction, Unknown, GI SYMPTOMS, 10/30/17) Physical Exam Vital Signs Date Time Temp Pulse Resp B/P (MAP) Pulse Ox O2 Delivery O2 Flow Rate FiO2 11/16/17 00:38 77 18 121/61 96 11/15/17 22:52 71 18 133/58 97 Room Air 11/15/17 21:04 70 135/51 97 Room Air 130/44 113/57 11/15/17 20:12 71 18 95 Room Air 11/15/17 18:53 71 20 132/61 95 Room Air 11/15/17 17:06 70 20 145/58 95 Room Air 11/15/17 16:04 36.3 82 21 127/64 95 Room Air 11/15/17 16:04 70 Physical Exam GENERAL: alert, well appearing, well nourished, no distress, non-toxic EYE EXAM: normal conjunctiva, PERRL and EOM's grossly intact OROPHARYNX: no exudate, no erythema, lips, buccal mucosa, and tongue normal and mucous membranes are dry NECK: supple, no nuchal rigidity, no adenopathy, non-tender LUNGS: Diminished breath sounds. Normal chest wall mechanics HEART: Soft systolic ejection murmur, S1 normal and S2 normal ABDOMEN: abdomen soft, non-tender, normo-active bowel sounds, no masses, no rebound or guarding. BACK: Back is symmetrical on inspection and there is no deformity, no midline tenderness, no CVA tenderness. SKIN: no rashes and no bruising UPPER EXTREMITIES: Right upper extreme with large region of ecchymosis in proximal RUE, in area over biceps, not circumferential, area is also edematous and tender to palpation. No bony tenderness at the shoulder, elbow, or more distally, mild edema also noted in forearm and hand, normal pulses, normal capillary refill. Sensation intact, can wiggle fingers, otherwise refuses to move RUE due to pain. LOWER EXTREMITIES: No pitting edema. NEURO EXAM: Normal sensorium, cranial nerves II-XII grossly intact, normal speech, no gross weakness of arms, no gross weakness of legs. Medical Decision & Procedures ER Provider Diagnostic Interpretation: Radiology results have been interpreted by the radiologist and reviewed by me. CHEST ONE VIEW PORTABLE CLINICAL HISTORY: Cough, shortness of breath, dizziness. COMPARISON STUDY: 10/30/2017 FINDINGS: The heart is mildly enlarged. There are postsurgical changes of midline sternotomy. There is a left subclavian dual-chamber central venous pacemaker. There is no failure. There is no focal pulmonary consolidation. There are no pleural effusions. IMPRESSION: No active disease in the chest. Electronically signed by: Florian Lua M.D. 11/15/2017 4:58 PM Laboratory Results 11/15/17 16:58 Red Blood Count 3.54, Mean Corpuscular Volume 90.1, Mean Corpuscular Hemoglobin 28.0, Mean Corpuscular Hemoglobin Concent 31.0, Mean Platelet Volume 8.8, Neutrophils (%) (Auto) 71.5, Lymphocytes (%) (Auto) 17.5, Monocytes (%) (Auto) 7.6, Eosinophils (%) (Auto) 3.0, Basophils (%) (Auto) 0.2, Neutrophils # (Auto) 6.24, Lymphocytes # (Auto) 1.53, Monocytes # (Auto) 0.66, Eosinophils # (Auto) 0.26, Basophils # (Auto) 0.02 11/15/17 16:58 Test 11/15/17 16:58 11/15/17 20:45 White Blood Count 8.73 K/uL (4.8-10.8) Red Blood Count 3.54 M/uL (4.2-5.4) Hemoglobin 9.9 g/dL (12.0-16.0) Hematocrit 31.9 % (37-47) Mean Corpuscular Volume 90.1 fL (80-100) Mean Corpuscular Hemoglobin 28.0 pg (25-34) Mean Corpuscular Hemoglobin Concent 31.0 g/dl (32-36) Platelet Count 241 K/uL (130-400) Mean Platelet Volume 8.8 fL (7.4-10.4) Neutrophils (%) (Auto) 71.5 % Lymphocytes (%) (Auto) 17.5 % Monocytes (%) (Auto) 7.6 % Eosinophils (%) (Auto) 3.0 % Basophils (%) (Auto) 0.2 % Neutrophils # (Auto) 6.24 K/uL (1.4-6.5) Lymphocytes # (Auto) 1.53 K/uL (1.2-3.4) Monocytes # (Auto) 0.66 K/uL (0.11-0.59) Eosinophils # (Auto) 0.26 K/uL (0-0.5) Basophils # (Auto) 0.02 K/uL (0-0.2) RDW Standard Deviation 43.8 fL (36.4-46.3) RDW Coefficient of Variation 13.3 % (11.5-14.5) Immature Granulocyte % (Auto) 0.2 % Immature Granulocyte # (Auto) 0.02 K/uL (0.00-0.02) Anion Gap 8.0 mmol/L (3-11) Est Creatinine Clear Calc Drug Dose 14.5 ml/min Estimated GFR () 19.9 Estimated GFR (Non- 17.2 BUN/Creatinine Ratio 18.6 (10-20) Calcium Level 8.5 mg/dl (8.5-10.1) Total Bilirubin 0.5 mg/dl (0.2-1) Aspartate Amino Transf (AST/SGOT) 16 U/L (15-37) Alanine Aminotransferase (ALT/SGPT) 22 U/L (12-78) Alkaline Phosphatase 93 U/L (45-117) Troponin I < 0.015 ng/ml (0-0.045) Pro-B-Type Natriuretic Peptide 45637 pg/ml (0-1800) Total Protein 6.8 gm/dl (6.4-8.2) Albumin 3.2 gm/dl (3.4-5.0) Globulin 3.6 gm/dl (2.5-4.0) Albumin/Globulin Ratio 0.9 (0.9-2) Urine Color YELLOW Urine Appearance CLEAR (CLEAR) Urine pH 7.0 (4.5-7.5) Urine Specific [place] 1.009 (1.000-1.030) Urine Protein 2+ (NEG) Urine Glucose (UA) NEG (NEG) Urine Ketones NEG (NEG) Urine Occult Blood NEG (NEG) Urine Nitrite NEG (NEG) Urine Bilirubin NEG (NEG) Urine Urobilinogen NEG (NEG) Urine Leukocyte Esterase SMALL (NEG) Urine WBC (Auto) 5-10 /hpf (0-5) Urine RBC (Auto) 0-4 /hpf (0-4) Urine Hyaline Casts (Auto) 1-5 /lpf (0-5) Urine Epithelial Cells (Auto) >30 /lpf (0-5) Urine Bacteria (Auto) NEG (NEG) Laboratory results per my review. Medications Administered Medications (Trade) Dose Ordered Sig/Leslee Route Start Time Stop Time Status Last Admin Dose Admin Levalbuterol (Xopenex 1.25MG/ 3ML Neb) 1.25 mg NOW STAT INH 11/15/17 19:38 11/15/17 19:40 DC 11/15/17 19:38 1.25 MG Codeine Phosphate/ Guaifenesin (Robitussin-AC Sugar Free Syrup) 10 ml NOW STAT PO 11/15/17 19:38 11/15/17 19:40 DC 11/15/17 19:55 10 ML Sodium Chloride 250 ml @ 999 mls/hr Q16M STAT IV 11/15/17 21:37 11/15/17 21:52 DC 11/15/17 22:03 999 MLS/HR ECG Per My Interpretation Indication: weakness Rate (beats per minute): 70 Rhythm: other (Paced rhythm) Findings: no acute ischemic change, left axis deviation, other (Prolonged intervals consistent with pacing) ED Course 1606: The patient was evaluated in room B4A. A complete history and physical exam was performed. 1929: I reevaluated the patient. I discussed her results and she and her family verbalized complete understanding. Medical Decision Differential Diagnoses considered include trauma, biceps tendon rupture, arterial injury, soft tissue injury. Patient well-appearing here despite complaints. Labs stable compared to prior values reviewed in EMR. Patient found to have hematoma of her right biceps, no obvious biceps tendon rupture. Due to patient's pacemaker she could not undergo an MRI. Patient placed in a sling for comfort, advised to keep elevated as much as possible to help minimize edema. Patient given 250 bolus carefully as a precaution due to concern for dehydration and dizziness after she took a laxative and had a subsequent bowel movement. Patient is typically on diuretics, measures daily weights, and has chronic congestive heart failure due to her significant cardiac history. Discussed with patient and son all results when they were aware, I do not feel patient is safe to return to her usual assisted living facility, and she states that she is unable to get additional help there. She refuses to be placed in a shelter, so we discussed inpatient rehab. I did discuss the case with case management to see if she met any criteria for readmission which she does not, and the feel that inpatient rehab is appropriate placement for her at this time given stable chronic comorbidities. This would also provide rehab as well as medical monitoring of her additional conditions. Patient is not anticoagulated although her antiplatelet therapy may have placed at an increased risk for this intramuscular hematoma. Patient denies any falls or trauma, no other trauma was noted. Patient's son were agreeable with plan for rehab, patient was recently discharged from [facility]. Patient does complain of mild dizziness, however was able to ablate with assistance. Mild orthostatic changes were noted from sitting to standing, however this was performed prior to the administration of her 250 bolus. Patient was eating and drinking here without incident and was asymptomatic at rest. I do not suspect acute intracranial or cardiac pathology contributing to her dizziness. Medication Reconcilliation Current Medication List: was personally reviewed by me Blood Pressure Screening Patient's blood pressure: Elevated blood pressure Blood pressure disposition: Referred to PCP Impression Primary Impression: Arm pain, right Additional Impressions: Hematoma Arm swelling Dizziness Scribe Attestation The scribe's documentation has been prepared under my direction and personally reviewed by me in its entirety. I confirm that the note above accurately reflects all work, treatment, procedures, and medical decision making performed by me. Departure Information Referrals Curly Guido M.D. (PCP) Patient Instructions My [facility] Problem Qualifiers
[2017-11-15] MEDS ORDERED: OPTIRAY 320 IV PRN (16:45)
--- NOTE | 2017-11-15 16:59 | DIAGNOSTIC IMAGING REPORT ---
CHEST ONE VIEW PORTABLE CLINICAL HISTORY: Cough, shortness of breath, dizziness. COMPARISON STUDY: 10/30/2017 FINDINGS: The heart is mildly enlarged. There are postsurgical changes of midline sternotomy. There is a left subclavian dual-chamber central venous pacemaker. There is no failure. There is no focal pulmonary consolidation. There are no pleural effusions.[ IMPRESSION: No active disease in the chest. Electronically signed by: Florian Lua M.D. 11/15/2017 4:58 PM Dictated Date/Time: 11/15/2017 4:57 PM
[2017-11-15 17:11] LABS: BASO % 0.2 %; BASO ABS # 0.02 K/uL (0-0.2); EOS ABS # 0.26 K/uL (0-0.5); HEMATOCRIT 31.9 % (37-47); HEMOGLOBIN 9.9 g/dL (12.0-16.0); IG# 0.02 K/uL (0.00-0.02); LYMPH % 17.5 %; LYMPH ABS # 1.53 K/uL (1.2-3.4); MEAN CELL VOLUME 90.1 fL (80-100); MEAN PLATELET VOLUME 8.8 fL (7.4-10.4); MONO % 7.6 %; MONO ABS # 0.66 K/uL (0.11-0.59); NEUT % 71.5 %; NEUT ABS # 6.24 K/uL (1.4-6.5); PLATELET COUNT 241 K/uL (130-400); RED CELL DISTRIBUTION WIDTH CV 13.3 % (11.5-14.5); RED CELL DISTRIBUTION WIDTH SD 43.8 fL (36.4-46.3); WHITE BLOOD COUNT 8.73 K/uL (4.8-10.8)
[2017-11-15] MEDS ORDERED: LXP10 PO (17:22)
[2017-11-15] MEDS ORDERED: DLTCD/240 PO (17:22)
[2017-11-15] MEDS ORDERED: OMEG12006 PO (17:22)
[2017-11-15] MEDS ORDERED: XPNINS NEB (17:22)
[2017-11-15] MEDS ORDERED: BENZ100C7 PO (17:22)
[2017-11-15] MEDS ORDERED: MAGN1TAB19 PO (17:22)
[2017-11-15] MEDS ORDERED: GUAI1TAB55 PO (17:22)
[2017-11-15] MEDS ORDERED: TIOT1AER INH (17:22)
[2017-11-15] MEDS ORDERED: GUAISYP4 PO (17:22)
[2017-11-15 17:32] LABS: ALBUMIN 3.2 gm/dl (3.4-5.0); ALKALINE PHOSPHATASE 93 U/L (45-117); ALT/SGPT 22 U/L (12-78); AST/SGOT 16 U/L (15-37); BLOOD UREA NITROGEN 45 mg/dl (7-18); CALCIUM 8.5 mg/dl (8.5-10.1); CARBON DIOXIDE 29 mmol/L (21-32); CREATININE 2.43 mg/dl (0.60-1.20); GLUCOSE 116 mg/dl (70-99); POTASSIUM 4.3 mmol/L (3.5-5.1); SODIUM 134 mmol/L (136-145); TOTAL PROTEIN 6.8 gm/dl (6.4-8.2)
[2017-11-15] MEDS ORDERED: CHOL1000 PO (17:34)
[2017-11-15] MEDS ORDERED: LANS30CA63 PO (17:34)
[2017-11-15] MEDS ORDERED: BUSP5TAB59 PO (17:34)
[2017-11-15] MEDS ORDERED: OLME5TAB3 PO (17:36)
[2017-11-15] MEDS ORDERED: LNX125 PO (17:36)
[2017-11-15] MEDS ORDERED: INSU100I23 SC (17:38)
[2017-11-15] MEDS ORDERED: DOCU100C31 PO (17:41)
[2017-11-15] MEDS ORDERED: LEVO50TA6 PO (17:41)
[2017-11-15] MEDS ORDERED: METO100T14 PO (17:41)
[2017-11-15] MEDS ORDERED: CRAN500C2 PO (17:45)
[2017-11-15] MEDS ORDERED: NITR0.4S UT (17:52)
[2017-11-15] MEDS ORDERED: BUME1TAB PO (18:17)
[2017-11-15] MEDS ORDERED: CALC1CAP36 PO (18:17)
[2017-11-15] MEDS ORDERED: NITR50CA39 PO (18:17)
[2017-11-15] MEDS ORDERED: PLV75 PO (18:17)
[2017-11-15] MEDS ORDERED: FLUT0.15 NAE (18:20)
[2017-11-15] MEDS ORDERED: ACET-1256 PO (18:21)
[2017-11-15] MEDS ORDERED: LORA-741 PO (18:22)
[2017-11-15] MEDS ORDERED: BIOT1CAP3 PO (18:23)
--- NOTE | 2017-11-15 19:10 | DIAGNOSTIC IMAGING REPORT ---
UPPER EXTREMITY WITHOUT HISTORY: 87 years-old Female prox edema, contusion, pain acute pain and swelling of the right upper arm. COMPARISON: None available TECHNIQUE: Multiple axial CT images of the right humerus were obtained without the use of IV contrast. A dose lowering technique was used consistent with the principals of MURALI. FINDINGS: Moderate osteoarthritis with joint space narrowing, subchondral sclerosis, subcortical cystic changes and marginal osteophytosis of the glenohumeral joint. Chondrocalcinosis of the glenohumeral joint is noted in conjunction with calcific tendinosis. Small to moderate right shoulder joint effusion with calcific bodies noted. The bones appear least mildly demineralized. There is no acute fracture or dislocation identified. Joint space narrowing with marginal spurring is noted about the elbow. No definite radial head fracture identified. Humerus appears intact. Skin thickening is noted about the anterior upper right arm with mild to moderate subcutaneous stranding. Intramuscular hematoma about the biceps brachii measures up to approximately 3.5 x 2.1 x 7.5 cm in transverse, AP and craniocaudal dimensions. Heterogeneity of the muscle extends from the shoulder to the level the elbow. Study is not tailored to assess the biceps tendon. Heterogeneous stranding extends into the right axilla. IMPRESSION: 1. Degenerative changes of the shoulder and elbow as detailed above without acute fracture or dislocation identified. 2. Intramuscular hematoma about the biceps brachii measures up to 7.5 cm in length. Subcutaneous stranding about the upper arm is likely reactive. 3. Calcific tendinosis and chondrocalcinosis with mild to moderate glenohumeral joint effusion. 4. Demineralized appearance of the bones. The above report was generated using voice recognition software. It may contain grammatical, syntax or spelling errors. Electronically signed by: Ernesto Mitchell M.D. 11/15/2017 7:09 PM Dictated Date/Time: 11/15/2017 7:02 PM
[2017-11-15] MEDS ORDERED: GUAIFENESIN/CODEINE 100MG/10MG 5ML UDC PO STA (19:38)
[2017-11-15] MEDS ORDERED: LEVALBUTEROL 1.25MG/3ML NEB INH STA (19:38)
[2017-11-15] MEDS ORDERED: CYAN100020 PO (19:52)
[2017-11-15] MEDS ORDERED: LORA10CA2 PO (19:52)
[2017-11-15 20:12] VITALS: PULSE 71; O2SAT 95
[2017-11-15] MEDS ORDERED: SODIUM CHLORIDE 0.9% 250ML 250 ML IV STA (21:37)
[2017-11-16 00:38] VITALS: BP 121/61; PULSE 77; O2SAT 96
== END 2017-11-16 00:39 ==
LOC: EDBD 15:26 → C.EDB 15:31
DX: S40.021A Contusion of right upper arm, initial encounter (principal); X58.XXXA Exposure to other specified factors, initial encounter; R42 Dizziness and giddiness; I50.23 Acute on chronic systolic (congestive) heart failure; N18.3 Chronic kidney disease, stage 3 (moderate); I13.0 Hypertensive heart and chronic kidney disease with heart failure and stage 1 through stage 4 chronic kidney disease, or unspecified chronic kidney disease; E11.22 Type 2 diabetes mellitus with diabetic chronic kidney disease; K21.9 Gastro-esophageal reflux disease without esophagitis; I27.20 Pulmonary hypertension, unspecified; Z95.0 Presence of cardiac pacemaker; Z87.01 Personal history of pneumonia (recurrent); I34.0 Nonrheumatic mitral (valve) insufficiency; Z95.1 Presence of aortocoronary bypass graft; Z83.3 Family history of diabetes mellitus; Z82.0 Family history of epilepsy and other diseases of the nervous system; Z79.82 Long term (current) use of aspirin; Z79.899 Other long term (current) drug therapy; Z88.0 Allergy status to penicillin; Z88.1 Allergy status to other antibiotic agents; Z88.8 Allergy status to other drugs, medicaments and biological substances; Z91.018 Allergy to other foods; Z88.2 Allergy status to sulfonamides

== ENCOUNTER 2018-04-24 11:53 | Inpatient (IN) ==
--- NOTE | 2018-04-24 12:15 | Emergency Department Note ---
Entered by Karen Painter acting as a scribe for Kvng Billings MD History of Present Illness General Chief complaint: Shortness of Breath/Dyspnea Stated complaint: CHEST PAIN,SOB,POSSIBLE PNX Time Seen by Provider: 04/24/18 12:01 Source: patient and friends History of Present Illness Onset (ago): month(s) 1 Location: left (Lung) and right (Lung) Pain Consistency: + other (Worsening) Maximum Pain Intensity: 2 Quality: + other (Shortness of breath) Relieved By: not by medication (Benadryl) Associated symptoms: + cough, + diaphoresis, + fever/chills, + loss of appetite , + nausea/vomiting and + shortness of breath Treatments prior to arrival: other (Benadryl) The patient is a 87 year old female who presents to the Emergency Room with complaints of worsening shortness of breath starting 1 month ago. The patient reports that she is diaphoretic, vomiting, coughing up a green mucous, and has lost her appetite. She states that she has been sick for a very long time and is losing weight. She notes that she recently had an operation regarding her pacemaker and that the area is now very sore. She adds that she has received a flu shot recently. The patient reports that she took Benadryl [employer] for her symptoms. She states that she regularly takes Aspirin. She notes that she called Dr. Muhammad PCP [employer] who recommended that she come to the ED. She denies falls and black or bloody stools. The patients friend reports that the patient lives in a personal care residence. Home Medications Home Medications Medication Instructions Recorded Confirmed Type acetaminophen [Tylenol Extra 500 mg PO Q6H PRN 04/24/18 04/24/18 History Strength] ascorbic acid (vitamin C) [Vitamin 500 mg PO QAM 04/24/18 04/24/18 History C] atorvastatin 10 mg PO QAM 04/24/18 04/24/18 History benzonatate 100 mg PO TID 04/24/18 04/24/18 History biotin 10,000 mcg PO QAM 04/24/18 04/24/18 History bumetanide 1 mg PO QAM 04/24/18 04/24/18 History calcitriol 0.25 mg PO Q2D 04/24/18 04/24/18 History cholecalciferol (vitamin D3) 1,000 unit PO QAM 04/24/18 04/24/18 History [Vitamin D3] cranberry 1,000 mg PO BID 04/24/18 04/24/18 History digoxin 125 mcg PO 3XWK 04/24/18 04/24/18 History docusate sodium [Colace] 100 mg PO BID 04/24/18 04/24/18 History escitalopram oxalate 5 mg PO QDL 04/24/18 04/24/18 History fluticasone [Flonase Allergy 2 spray INTRANASAL DAILY 04/24/18 04/24/18 History Relief] insulin glargine [Basaglar KwikPen 30 unit SUBCUT QAM 04/24/18 04/24/18 History U-100 Insulin] lansoprazole 30 mg PO QAM 04/24/18 04/24/18 History levalbuterol HCl 0.63 mg INHALATION TID 04/24/18 04/24/18 History levothyroxine 75 mcg PO QAM 04/24/18 04/24/18 History loratadine 10 mg PO QAM 04/24/18 04/24/18 History lorazepam 0.5 mg PO DAILY 04/24/18 04/24/18 History magnesium oxide 400 mg PO QAM 04/24/18 04/24/18 History metoprolol tartrate 100 mg PO BID 04/24/18 04/24/18 History nitrofurantoin macrocrystal 50 mg PO HS 04/24/18 04/24/18 History nitroglycerin [Nitrostat] 0.4 mg SUBLINGUAL UD 04/24/18 04/24/18 History olmesartan 5 mg PO HS 04/24/18 04/24/18 History omega-3 acid ethyl esters 2,000 mg PO BID 04/24/18 04/24/18 History ondansetron 4 mg PO Q4H PRN 04/24/18 04/24/18 History tolterodine 2 mg PO BID 04/24/18 04/24/18 History Allergies Allergy/AdvReac Type Severity Reaction Status Date / Time fenofibrate Allergy Intermediate rash Verified 04/24/18 13:32 amoxicillin Allergy Unknown UNKNOWN Verified 04/24/18 13:32 calcium carbonate Allergy Unknown . Verified 04/24/18 13:32 Cipro Allergy Unknown . Verified 10/30/17 13:10 ciprofloxacin Allergy Unknown . Verified 04/24/18 13:32 diphenhydramine Allergy Unknown . Verified 04/24/18 13:32 fexofenadine Allergy Unknown UNKNOWN Verified 04/24/18 13:32 irbesartan Allergy Unknown UNKNOWN Verified 04/24/18 13:32 lidocaine Allergy Unknown . Verified 04/24/18 13:32 niacin Allergy Unknown RASH Verified 04/24/18 13:32 nystatin Allergy Unknown . Verified 04/24/18 13:32 Penicillins Allergy Unknown UNKNOWN Verified 04/24/18 13:32 Sulfa (Sulfonamide Allergy Unknown UNKNOWN Verified 04/24/18 13:32 Antibiotics) flumazenil AdvReac Intermediate DELIRIUM Verified 04/24/18 13:32 tomato AdvReac Unknown GI SYMPTOMS Verified 04/24/18 13:32 Past Med/Surg History Medical History COPD (chronic obstructive pulmonary disease) Depression Pacemaker (Chronic) DM (diabetes mellitus) (Chronic) Chest pain (Acute) SOB (shortness of breath) (Acute) Atrial fibrillation (Chronic) Hypertension (Chronic 05/10/14) GERD (gastroesophageal reflux disease) (Chronic) Renal failure (Chronic) Anxiety (Acute) CHF (congestive heart failure) (Chronic) Chronic kidney disease Hyponatremia Moderate to severe pulmonary hypertension Severe mitral regurgitation Surgical History S/P quintuple vessel bypass (Resolved) History of cardiac cath (Resolved) Social History Current Living Situation: Personal Care Facility Current Living Situation Comment: spring Other Information That Helps Us Care for You: No Feels Safe at Home: Yes Safety Concerns: Feels Safe At This Time Smoking Status: Never smoker Hx Alcohol Use: No Hx Substance Use: No Beliefs That Will Affect Care: None Preferred Language: Uzbek Communication Ability: Effective Review of Systems See HPI for pertinent positives & negatives. and A total of 10 systems reviewed and were otherwise negative Physical Exam Vital Signs Vital Signs - 24 hr 04/24/18 11:57 04/24/18 12:27 04/24/18 12:30 Temperature 36.8 C Temperature Source Oral Sepsis Recent Fever Within 48 Hours No Sepsis New/Unexplained Change in Mental Status No Sepsis Action Taken by Nursing No Action Required Pulse Rate 71 75 75 Pulse Rate [Apical] Respiratory Rate 24 22 25 H Respiratory Effort / Characteristics Non-Labored Spontaneous Short of Breath Respiratory Depth Normal Respiratory Pattern Blood Pressure 171/84 H Blood Pressure [Left Arm] Blood Pressure Mean 113 Blood Pressure Mean [Left Arm] Blood Pressure Position Sitting Blood Pressure Position [Left Arm] Pulse Oximetry 97 Oxygen Delivery Method Room Air Room Air Oxygen Flow Rate 04/24/18 13:00 04/24/18 13:30 04/24/18 13:59 Temperature Temperature Source Sepsis Recent Fever Within 48 Hours Sepsis New/Unexplained Change in Mental Status Sepsis Action Taken by Nursing Pulse Rate 70 72 70 Pulse Rate [Apical] Respiratory Rate 26 H 25 H 21 Respiratory Effort / Characteristics Respiratory Depth Respiratory Pattern Blood Pressure 130/71 Blood Pressure [Left Arm] Blood Pressure Mean 90 Blood Pressure Mean [Left Arm] Blood Pressure Position Blood Pressure Position [Left Arm] Pulse Oximetry 98 Oxygen Delivery Method Nasal Cannula Oxygen Flow Rate 2 04/24/18 14:01 04/24/18 14:07 04/24/18 16:00 Temperature Temperature Source Sepsis Recent Fever Within 48 Hours Sepsis New/Unexplained Change in Mental Status Sepsis Action Taken by Nursing Pulse Rate 73 Pulse Rate [Apical] 75 Respiratory Rate 20 22 Respiratory Effort / Characteristics Spontaneous Short of Breath SOB on Exertion Respiratory Depth Shallow Normal Respiratory Pattern Tachypnea Blood Pressure Blood Pressure [Left Arm] 151/60 H Blood Pressure Mean Blood Pressure Mean [Left Arm] 90 Blood Pressure Position Blood Pressure Position [Left Arm] Pulse Oximetry 95 Oxygen Delivery Method Nasal Cannula Nasal Cannula Oxygen Flow Rate 2 2 04/24/18 16:12 04/24/18 16:30 Temperature 37.1 C Temperature Source Oral Sepsis Recent Fever Within 48 Hours Sepsis New/Unexplained Change in Mental Status Sepsis Action Taken by Nursing Pulse Rate 70 Pulse Rate [Apical] 74 Respiratory Rate 22 22 Respiratory Effort / Characteristics Spontaneous Labored Short of Breath Respiratory Depth Respiratory Pattern Blood Pressure 151/60 H Blood Pressure [Left Arm] 158/72 H Blood Pressure Mean Blood Pressure Mean [Left Arm] 100 Blood Pressure Position Blood Pressure Position [Left Arm] Sitting Pulse Oximetry 95 98 Oxygen Delivery Method Nasal Cannula Nasal Cannula Oxygen Flow Rate 2 2 General: Chronically-ill appearing, pale older female in no acute distress. HEENT: Normal cephalic atraumatic. Pupils are equal round and reactive to light. Extraocular movements are intact. Oropharynx is pink with moist mucous membranes. No swelling of the mouth lips or tongue. Neck: Supple with a midline trachea. No meningeal signs or stiffness, no JVD or bruits. No Stridor. Chest: Clear to auscultation bilaterally. No wheezes or rhonchi. Coarse breath sound in bases, no increased work of breathing. Heart: regular rate and rhythm. Abdomen: Soft nontender, nondistended without rebound guarding or rigidity. Extremities: No cyanosis or clubbing. No calf tenderness or assymetry. Fistula in right arm. 1+ bilateral edema, left greater than right which she says is chronic. Spine/Back. Non tender to palpation. No CVA tenderness Skin: Good turgor without rashes. Neurologic exam: Cranial nerves two through 12 are intact. Motor and sensation are intact and symmetrical throughout. Course 1203: Past medical records reviewed. The patient was evaluated in room B3B, and a complete history and physical examination were performed. 1226: The nurse called me and stated that he had put the patient on supplemental oxygen. 1238: I revaluated the patient at this time who is doing well. 1347: I reevaluated the patient at this time who states that she is becoming weaker and has been SOB in the last few days and doesnt feel that she is able to go home at this time. 1354: I reviewed the patient's case with Dr. Campbell - [facility] [place] hospitalist. She will evaluate the patient for further management. Administered Medications Ceftriaxone Sodium 1,000 mg/ (Dextrose) 50 mls @ 100 mls/hr IV DAILY@1700 [facility] Stop: 05/01/18 16:59 Last Admin: 04/24/18 17:50 Dose: 100 mls/hr Insulin Aspart (Novolog Flexpen) 0 units SC ACHS [facility] Stop: 05/24/18 17:29 Last Admin: 04/24/18 17:51 Dose: 2 units Discontinued Medications Bumetanide (Bumex) 1 mg PO NOW ONE Stop: 04/24/18 17:01 Last Admin: 04/24/18 17:50 Dose: 1 mg Medical Decision Making Differential Diagnosis Differential Diagnosis includes: CHF, pneumonia, anemia, cardiac disease arrhythmia, influenza, electrolyte or metabolic abnormality among others. Medical Records Attestation: I reviewed the patient's medical records. Home Medications Current Medication List: was personally reviewed by me Laboratory Data Attestation: I reviewed the patient's lab results. Result diagrams: 04/24/18 12:31 04/24/18 12:31 Lab Results 04/24/18 04/24/18 04/24/18 Range/Units 12:28 12:31 12:31 WBC 10.48 (4.8-10.8) K/uL RBC 3.85 L (4.2-5.4) M/uL Hgb 10.0 L (12.0-16.0) g/dL Hct 32.0 L (37-47) % MCV 83.1 (80-100) fL MCH 26.0 (25-34) pg MCHC 31.3 L (32-36) g/dL RDW Std Deviation 51.1 H (36.4-46.3) fL RDW Coeff of Anthony 16.9 H (11.5-14.5) % Plt Count 221 (130-400) K/uL MPV 8.8 (7.4-10.4) fL Immature Gran % (Auto) 0.2 % Neut % (Auto) 78.6 % Lymph % (Auto) 12.4 % Sunflower % (Auto) 5.2 % Eos % (Auto) 3.4 % Baso % (Auto) 0.2 % Immature Gran # (Auto) 0.02 (0.00-0.02) K/uL Neut # (Auto) 8.23 H (1.4-6.5) K/uL Lymph # (Auto) 1.30 (1.2-3.4) K/uL Sunflower # (Auto) 0.55 (0.11-0.59) K/uL Eos # (Auto) 0.36 (0-0.5) K/uL Baso # (Auto) 0.02 (0-0.2) K/uL PT (9.0-12.0) Seconds INR (0.9-1.1) APTT (21.0-31.0) Seconds PTT Ratio Sodium 127 L (136-145) mmol/L Potassium 4.9 (3.5-5.1) mmol/L Chloride 95 L (98-107) mmol/L Carbon Dioxide 24 (21-32) mmol/L Anion Gap 8.0 (3-11) BUN 47 H (7-18) mg/dl Creatinine 2.23 H (0.6-1.2) mg/dl Est Cr Clr Drug Dosing Not Reportable Est GFR ( Amer) 22.1 Est GFR (Non-Af Amer) 19.1 BUN/Creatinine Ratio 21.1 H (10-20) Glucose 169 H (70-99) mg/dl POC Glucose (70-99) POC Lactic Acid Claude (0.90-1.70) mmol/L Calcium 8.6 (8.5-10.1) mg/dl Total Bilirubin 0.6 (0.2-1) mg/dl AST 33 (15-37) U/L ALT 30 (12-78) U/L Alkaline Phosphatase 100 (45-117) U/L POC Troponin I (0-0.045) ng/ml NT-Pro-B Natriuret Pep 71241 H (0-1800) pg/ml Total Protein 6.8 (6.4-8.2) gm/dl Albumin 3.2 L (3.4-5.0) gm/dl Globulin 3.6 (2.5-4.0) gm/dl Albumin/Globulin Ratio 0.9 (0.9-2) Lipase 126 (73-393) U/L TSH 1.400 (0.300-4.500) uIu/ml Urine Color Urine Appearance (Clear) Urine pH (4.5-7.5) Ur Specific [place] (1.000-1.030) Urine Protein (Negative) Urine Glucose (UA) (Negative) Urine Ketones (Negative) Urine Blood (Negative) Urine Nitrite (Negative) Urine Bilirubin (Negative) Urine Urobilinogen (Negative) Ur Leukocyte Esterase (Negative) Urine WBC (Auto) (0-5) /hpf Urine RBC (Auto) (0-4) /hpf U Hyaline Cast (Auto) (0-5) /lpf U Epithel Cells (Auto) (0-5) /lpf Urine Bacteria (Auto) (Negative) Amorphous Sediment (None Prsent) Urine Yeast Influenza Type A Ag (Neg) Influenza Type B Ag (Neg) Blood Type A Positive Antibody Screen NEGATIVE 04/24/18 04/24/18 04/24/18 Range/Units 12:35 12:36 12:38 WBC (4.8-10.8) K/uL RBC (4.2-5.4) M/uL Hgb (12.0-16.0) g/dL Hct (37-47) % MCV (80-100) fL MCH (25-34) pg MCHC (32-36) g/dL RDW Std Deviation (36.4-46.3) fL RDW Coeff of Anthony (11.5-14.5) % Plt Count (130-400) K/uL MPV (7.4-10.4) fL Immature Gran % (Auto) % Neut % (Auto) % Lymph % (Auto) % Sunflower % (Auto) % Eos % (Auto) % Baso % (Auto) % Immature Gran # (Auto) (0.00-0.02) K/uL Neut # (Auto) (1.4-6.5) K/uL Lymph # (Auto) (1.2-3.4) K/uL Sunflower # (Auto) (0.11-0.59) K/uL Eos # (Auto) (0-0.5) K/uL Baso # (Auto) (0-0.2) K/uL PT (9.0-12.0) Seconds INR (0.9-1.1) APTT (21.0-31.0) Seconds PTT Ratio Sodium (136-145) mmol/L Potassium (3.5-5.1) mmol/L Chloride (98-107) mmol/L Carbon Dioxide (21-32) mmol/L Anion Gap (3-11) BUN (7-18) mg/dl Creatinine (0.6-1.2) mg/dl Est Cr Clr Drug Dosing Est GFR ( Amer) Est GFR (Non-Af Amer) BUN/Creatinine Ratio (10-20) Glucose (70-99) mg/dl POC Glucose (70-99) POC Lactic Acid Claude 0.97 (0.90-1.70) mmol/L Calcium (8.5-10.1) mg/dl Total Bilirubin (0.2-1) mg/dl AST (15-37) U/L ALT (12-78) U/L Alkaline Phosphatase (45-117) U/L POC Troponin I < 0.03 (0-0.045) ng/ml NT-Pro-B Natriuret Pep (0-1800) pg/ml Total Protein (6.4-8.2) gm/dl Albumin (3.4-5.0) gm/dl Globulin (2.5-4.0) gm/dl Albumin/Globulin Ratio (0.9-2) Lipase (73-393) U/L TSH (0.300-4.500) uIu/ml Urine Color Urine Appearance (Clear) Urine pH (4.5-7.5) Ur Specific [place] (1.000-1.030) Urine Protein (Negative) Urine Glucose (UA) (Negative) Urine Ketones (Negative) Urine Blood (Negative) Urine Nitrite (Negative) Urine Bilirubin (Negative) Urine Urobilinogen (Negative) Ur Leukocyte Esterase (Negative) Urine WBC (Auto) (0-5) /hpf Urine RBC (Auto) (0-4) /hpf U Hyaline Cast (Auto) (0-5) /lpf U Epithel Cells (Auto) (0-5) /lpf Urine Bacteria (Auto) (Negative) Amorphous Sediment (None Prsent) Urine Yeast Influenza Type A Ag Neg for Influ A (Neg) Influenza Type B Ag Neg for Influ B (Neg) Blood Type Antibody Screen 04/24/18 04/24/18 04/24/18 Range/Units 15:44 16:44 17:12 WBC (4.8-10.8) K/uL RBC (4.2-5.4) M/uL Hgb (12.0-16.0) g/dL Hct (37-47) % MCV (80-100) fL MCH (25-34) pg MCHC (32-36) g/dL RDW Std Deviation (36.4-46.3) fL RDW Coeff of Anthony (11.5-14.5) % Plt Count (130-400) K/uL MPV (7.4-10.4) fL Immature Gran % (Auto) % Neut % (Auto) % Lymph % (Auto) % Sunflower % (Auto) % Eos % (Auto) % Baso % (Auto) % Immature Gran # (Auto) (0.00-0.02) K/uL Neut # (Auto) (1.4-6.5) K/uL Lymph # (Auto) (1.2-3.4) K/uL Sunflower # (Auto) (0.11-0.59) K/uL Eos # (Auto) (0-0.5) K/uL Baso # (Auto) (0-0.2) K/uL PT 10.5 (9.0-12.0) Seconds INR 1.0 (0.9-1.1) APTT 27.8 (21.0-31.0) Seconds PTT Ratio 1.1 Sodium (136-145) mmol/L Potassium (3.5-5.1) mmol/L Chloride (98-107) mmol/L Carbon Dioxide (21-32) mmol/L Anion Gap (3-11) BUN (7-18) mg/dl Creatinine (0.6-1.2) mg/dl Est Cr Clr Drug Dosing Est GFR ( Amer) Est GFR (Non-Af Amer) BUN/Creatinine Ratio (10-20) Glucose (70-99) mg/dl POC Glucose 132 H (70-99) POC Lactic Acid Claude (0.90-1.70) mmol/L Calcium (8.5-10.1) mg/dl Total Bilirubin (0.2-1) mg/dl AST (15-37) U/L ALT (12-78) U/L Alkaline Phosphatase (45-117) U/L POC Troponin I (0-0.045) ng/ml NT-Pro-B Natriuret Pep (0-1800) pg/ml Total Protein (6.4-8.2) gm/dl Albumin (3.4-5.0) gm/dl Globulin (2.5-4.0) gm/dl Albumin/Globulin Ratio (0.9-2) Lipase (73-393) U/L TSH (0.300-4.500) uIu/ml Urine Color Yellow Urine Appearance Cloudy H (Clear) Urine pH 5.5 (4.5-7.5) Ur Specific [place] 1.008 (1.000-1.030) Urine Protein 1+ H (Negative) Urine Glucose (UA) Negative (Negative) Urine Ketones Negative (Negative) Urine Blood 1+ H (Negative) Urine Nitrite Negative (Negative) Urine Bilirubin Negative (Negative) Urine Urobilinogen Negative (Negative) Ur Leukocyte Esterase 1+ H (Negative) Urine WBC (Auto) >30 H (0-5) /hpf Urine RBC (Auto) 5-10 H (0-4) /hpf U Hyaline Cast (Auto) 0 (0-5) /lpf U Epithel Cells (Auto) 10-20 H (0-5) /lpf Urine Bacteria (Auto) 4+ H (Negative) Amorphous Sediment Present H (None Prsent) Urine Yeast Not Reportable Influenza Type A Ag (Neg) Influenza Type B Ag (Neg) Blood Type Antibody Screen Imaging Data Attestation: I personally reviewed and interpreted this imaging study as follows : My Impression: As per my interpretation: XR Chest 1V portable Stat: Lung villalobos clear without pneumonia or significant CHF. Pacemaker in place. Radiologist's Impression: Radiology results as stated below per my review and the radiologist's interpretation: XR chest 1V portable CLINICAL HISTORY: Chest Pain dyspnea COMPARISON STUDY: 12/03/2017 FINDINGS: Mild stable cardiomegaly. Median sternotomy. Prominent cardiac bipolar pacemaker. Mild emphysematous change. Mild upper lobe fibrotic change. No evidence for acute infiltrative change. IMPRESSION: Chronic and postoperative change. No acute process. The above report was generated using voice recognition software. It may contain grammatical, syntax or spelling errors. Electronically signed by: Yfn Hoang M.D. 04/24/2018 12:48 PM ECG Data Attestation: I personally reviewed and interpreted this ECG as follows: Indication: SOB/dyspnea and other (Paced rhythm with underlying A-fib) Rate (beats per minute): 73 Findings: + paced rhythm (with underlying A-fib); no acute ischemic change Comparison ECG Date: from (12/03/17) Change: no significant change Blood Pressure Blood Pressure Findings: Normal blood pressure Blood Pressure Disposition: further management by hospitalist [facility] Narrative This patient comes in as described above. She was placed in room B3. She has significant chronic illnesses and has been getting worse she has had a cough and a low-grade temperature. She had her recent fistula placed in her right arm. she has history of CHF. The fistula does not appear to be infected. She had a low-grade temperature at home. She does look pale. Multiple blood testing was obtained including blood cultures as well as type and screen chest x -ray and EKG. I have reviewed her old records. She was reassessed frequently. Her chest x-ray does not show any definite congestive heart failure pneumonia or pneumothorax. EKG shows a paced rhythm but no definite ischemia she does have some renal insufficiency which is about baseline. No significant electrolyte abnormalities. She has baseline anemia. Her BNP was significantly elevated I do think she likely has some fluid overload/CHF. Influenza was negative. She has had weakness and has multiple issues going on I do not think is safe to go home at this point cultures are pending there still could be an infectious process although she does not have a fever or white count here. I do think she needs to be admitted/observe for further inpatient treatment and evaluation and likely does have a CHF component as well. She was happy the plan and I did consult the hospitalist. Impression & Plan Weakness, Shortness of breath Discharge Plan Visit Data *Final* Discharge Date/Time: 04/24/18 16:12 Chief Complaint: Shortness of Breath/Dyspnea Stated Complaint: CHEST PAIN,SOB,POSSIBLE PNX ED Provider: Kvng Billings Discharge Problem: Weakness, Shortness of breath Patient Disposition: Admitted As Inpatient Discharge Instructions Interventions: ED Discharge Assessment Last Done: 04/24/18 16:12 The scribe's documentation has been prepared under my direction and personally reviewed by me in its entirety. I confirm that the note above accurately reflects all work, treatment, procedures, and medical decision making performed by me.
[2018-04-24 12:45] LABS: Basophils # (auto) 0.02 K/uL (0-0.2); Basophils % (auto) 0.2 %; Eosinophils # (auto) 0.36 K/uL (0-0.5); Eosinophils % (auto) 3.4 %; Immature Granulocytes # (auto) 0.02 K/uL (0.00-0.02); Immature Granulocytes % (auto) 0.2 %; Lymphocytes % (auto) 12.4 %; Mean Corpuscular Hgb Conc 31.3 g/dL (32-36); Mean Corpuscular Volume 83.1 fL (80-100); Mean Platelet Volume 8.8 fL (7.4-10.4); Monocytes # (auto) 0.55 K/uL (0.11-0.59); Monocytes % (auto) 5.2 %; Neutrophils # (auto) 8.23 K/uL (1.4-6.5); Neutrophils % (auto) 78.6 %; Platelet Count 221 K/uL (130-400); RDW Coefficient of Variation 16.9 % (11.5-14.5); RDW Standard Deviation 51.1 fL (36.4-46.3); Red Blood Count 3.85 M/uL (4.2-5.4); White Blood Count 10.48 K/uL (4.8-10.8)
--- NOTE | 2018-04-24 12:50 | XRay Report ---
XR chest 1V portable CLINICAL HISTORY: Chest Pain dyspnea COMPARISON STUDY: 12/03/2017 FINDINGS: Mild stable cardiomegaly. Median sternotomy. Prominent cardiac bipolar pacemaker. Mild emphysematous change. Mild upper lobe fibrotic change. No evidence for acute infiltrative change . IMPRESSION: Chronic and postoperative change. No acute process. The above report was generated using voice recognition software. It may contain grammatical, syntax or spelling errors. Electronically signed by: Yfn Hoang M.D. 04/24/2018 12:48 PM
[2018-04-24 13:04] LABS: Alanine Aminotransferase 30 U/L (12-78); Albumin Level 3.2 gm/dl (3.4-5.0); Aspartate Aminotransferase 33 U/L (15-37); BUN Creatinine Ratio 21.1 (10-20); Blood Urea Nitrogen 47 mg/dl (7-18); Calcium 8.6 mg/dl (8.5-10.1); Carbon Dioxide 24 mmol/L (21-32); Chloride 95 mmol/L (98-107); Est GFR (African American) 22.1; Est GFR (Non-African American) 19.1; Glucose 169 mg/dl (70-99); Potassium 4.9 mmol/L (3.5-5.1); Sodium 127 mmol/L (136-145)
[2018-04-24 13:15] LABS: Albumin Globulin Ratio 0.9 (0.9-2); Alkaline Phosphatase 100 U/L (45-117); Bilirubin,Total 0.6 mg/dl (0.2-1); Globulin 3.6 gm/dl (2.5-4.0); NT Pro B Type Natriuretic Pept 31779 pg/ml (0-1800); Total Protein 6.8 gm/dl (6.4-8.2)
--- NOTE | 2018-04-24 13:57 | History & Physical Report ---
Date of Service April 24, 2018 Assessment & Plan (1) SOB (shortness of breath): - Admit to med surg with tele - Flu swab neg, afebrile, WBC = 10.40, follow with a.m. labs -Continue on Mucinex, Tessalon Perles, sputum culture, supplemental oxygen as needed, patient is currently on 1 L and normally does not require any. -Start ceftriaxone and azithromycin IV -Chest x-ray reviewed without acute findings as described above, however there are decreased breath sounds in the RLL compared to the left. -Patient notes increasing shortness of breath which may be secondary to increased fluid retention as with increased edema in BLE's. - Bumex 1 mg PO now, continue QAM, can give additional 1 mg tomorrow evening if clinically improving with diuresis, follow volume status. (2) Chest pain: -We will trend troponins x2 more sets, initial was negative -EKG reviewed as above, without acute findings -Patient had pacemaker placed approximately [address] Guido and follows with him routinely-she is tender over the incision site on exam. Can use topical anesthetic for localized pain. Consider cardiology consult if no improvement, or if worsening symptoms. (3) CHF (congestive heart failure): -Chronic, systolic and diastolic -Last EF was 40-45% checked in summer 2017 -Will give additional dose of Bumex 1 mg tonight and monitor response. Consider increase Bumex to 2 mg QAM to help with diuresis with increased weight within 1 day of 4 lbs, - this may be worsening shortness of breath with superimposed upper respiratory infection. -Monitor a.m. PRP, daily weights, strict I's/ O's - Consider repeat ECHO however follows closely with cardiology as above (4) Atrial fibrillation: -Permanent, rate controlled on admission, continue digoxin 125 mcg MWF, metoprolol tartrate 100 mg BID -Patient is not on anticoagulation due to history of excessive epistaxis (5) Hypertension: -Continue metoprolol tartrate, digoxin, olmesartan and bumetanide (6) S/P quintuple vessel bypass: -Occurred in 2003 -Followed by PCI and RCA stent in 2008. Last cath was in June 2010. Initial pacemaker was placed in 2008. On 03/13/18 had generator replaced per outpt record review. (7) Pacemaker: As above (8) History of cardiac cath: As above (9) Severe mitral regurgitation: (10) Tricuspid regurgitation: (11) COPD (chronic obstructive pulmonary disease): - Has noted chronic dyspnea and chronic dry morning cough however this is now productive with yellow/green tinged sputum so will check sputum culture and treat with a dose of rocephin and azithromycin for pna coverage. -Supportive treatment as above. -Check MRSA swab - Flu negative - Continue inhalers as SUPPLY OFFICER meds. - Follows with IRINEO Hall as an outpatinet. (12) Moderate to severe pulmonary hypertension: -Noted, stable (13) DM (diabetes mellitus): - Continue Lantus 30 units QAM - ISS with Accu-Cheks ordered -Diabetic diet -Last A1c was 8.2 checked on 04/15/18, no need to repeat (14) Chronic kidney disease: -Stage IV -Patient had RUE AVF placed ~[address] Anderson, site has Steri-Strips intact, no signs of surrounding erythema, edema or tenderness with palpation or surrounding location. - Monitor Cr. closely, increased dose of Bumex as above, am PRP - Cr.= 2.23, appears to have baseline =2.0-2.3 - Follows with Dr. Urias as outpatient. - Continue HH diet with 2 g sodium restriction - Chronic indwelling saenz will need changed within next week. Checking UA - urine clear yellow in bag, tubing appears clouded. (15) Hyponatremia: -Chronic, sodium = 127 upon admission, follow am PRP (16) GERD (gastroesophageal reflux disease): - Cont PPI (17) Anxiety: (18) Depression: - Stable, continue Lexapro 5 mg daily (19) DVT prophylaxis: - teds, scds, heparin subq History of Present Illness Chief Complaint: Shortness of breath Primary Care Provider: Deion Downs MD This is a 87 yo F with PMHx of HTN, HLD, CAD, combined systolic and diastolic CHF with last EF of 40-45%, moderate MR and moderate TR, Afib, not on anticoagulation due to history of excessive epistaxis, dual chamber pacemaker insertion, hx of quintuple bypass surgery in 2006, severe pulmonary hypertension , COPD, DM II, hypothyroidism, CKD stage IV with recent placement of AVF, GERD, anxiety, depression, hyponatremia who presents with worsening shortness of breath. Patient notes that she had a right arm fistula placed last Saturday by Dr. Anderson and since then feels much worse. Her symptoms include generalized malaise, chronic fatigue, poor appetite yet good fluid intake, hair loss, nausea and vomiting daily for the past 3 months, overall weight loss with new onset of weight gain of 4 pounds overnight. Patient has a dry weight of 137 but was up to 141 today. She reports having chronic aches and pains which she believes is arthritis. Patient has had worsening shortness of breath which is most concerning to her, only able to take about 15 steps before becoming winded, and is coughing, with productive yellow to green sputum in the past 3 days as well. She also notes she is having chest pain which is worse with deep breaths and with cough, and notes she had her pacemaker placed about [address] Guido, cardiology, who she follows with on a regular basis. She has been able to take all of her medications. Patient lives in the personal [facility] , and is unaware of any sick patients she was exposed to. She typically ambulates with a walker, and does not require supplemental O2. Allergies Allergy/AdvReac Type Severity Reaction Status Date / Time fenofibrate Allergy Intermediate rash Verified 04/24/18 13:32 amoxicillin Allergy Unknown UNKNOWN Verified 04/24/18 13:32 calcium carbonate Allergy Unknown . Verified 04/24/18 13:32 Cipro Allergy Unknown . Verified 10/30/17 13:10 ciprofloxacin Allergy Unknown . Verified 04/24/18 13:32 diphenhydramine Allergy Unknown . Verified 04/24/18 13:32 fexofenadine Allergy Unknown UNKNOWN Verified 04/24/18 13:32 irbesartan Allergy Unknown UNKNOWN Verified 04/24/18 13:32 lidocaine Allergy Unknown . Verified 04/24/18 13:32 niacin Allergy Unknown RASH Verified 04/24/18 13:32 nystatin Allergy Unknown . Verified 04/24/18 13:32 Penicillins Allergy Unknown UNKNOWN Verified 04/24/18 13:32 Sulfa (Sulfonamide Allergy Unknown UNKNOWN Verified 04/24/18 13:32 Antibiotics) flumazenil AdvReac Intermediate DELIRIUM Verified 04/24/18 13:32 tomato AdvReac Unknown GI SYMPTOMS Verified 04/24/18 13:32 Home Medications Home Medications Medication Instructions Recorded Confirmed Type acetaminophen [Tylenol Extra 500 mg PO Q6H PRN 04/24/18 04/24/18 History Strength] ascorbic acid (vitamin C) [Vitamin 500 mg PO QAM 04/24/18 04/24/18 History C] atorvastatin 10 mg PO QAM 04/24/18 04/24/18 History benzonatate 100 mg PO TID 04/24/18 04/24/18 History biotin 10,000 mcg PO QAM 04/24/18 04/24/18 History bumetanide 1 mg PO QAM 04/24/18 04/24/18 History calcitriol 0.25 mg PO Q2D 04/24/18 04/24/18 History cholecalciferol (vitamin D3) 1,000 unit PO QAM 04/24/18 04/24/18 History [Vitamin D3] cranberry 1,000 mg PO BID 04/24/18 04/24/18 History digoxin 125 mcg PO 3XWK 04/24/18 04/24/18 History docusate sodium [Colace] 100 mg PO BID 04/24/18 04/24/18 History escitalopram oxalate 5 mg PO QDL 04/24/18 04/24/18 History fluticasone [Flonase Allergy 2 spray INTRANASAL DAILY 04/24/18 04/24/18 History Relief] insulin glargine [Basaglar KwikPen 30 unit SUBCUT QAM 04/24/18 04/24/18 History U-100 Insulin] lansoprazole 30 mg PO QAM 04/24/18 04/24/18 History levalbuterol HCl 0.63 mg INHALATION TID 04/24/18 04/24/18 History levothyroxine 75 mcg PO QAM 04/24/18 04/24/18 History loratadine 10 mg PO QAM 04/24/18 04/24/18 History lorazepam 0.5 mg PO DAILY 04/24/18 04/24/18 History magnesium oxide 400 mg PO QAM 04/24/18 04/24/18 History metoprolol tartrate 100 mg PO BID 04/24/18 04/24/18 History nitrofurantoin macrocrystal 50 mg PO HS 04/24/18 04/24/18 History nitroglycerin [Nitrostat] 0.4 mg SUBLINGUAL UD 04/24/18 04/24/18 History olmesartan 5 mg PO HS 04/24/18 04/24/18 History omega-3 acid ethyl esters 2,000 mg PO BID 04/24/18 04/24/18 History ondansetron 4 mg PO Q4H PRN 04/24/18 04/24/18 History tolterodine 2 mg PO BID 04/24/18 04/24/18 History Past Med/Surg History Medical History COPD (chronic obstructive pulmonary disease) Depression Pacemaker (Chronic) DM (diabetes mellitus) (Chronic) Chest pain (Acute) SOB (shortness of breath) (Acute) Atrial fibrillation (Chronic) Hypertension (Chronic 05/10/14) GERD (gastroesophageal reflux disease) (Chronic) Renal failure (Chronic) Anxiety (Acute) CHF (congestive heart failure) (Chronic) Chronic kidney disease Hyponatremia Moderate to severe pulmonary hypertension Severe mitral regurgitation Surgical History S/P quintuple vessel bypass (Resolved) History of cardiac cath (Resolved) Social History Current Living Situation: Personal Care Facility Current Living Situation Comment: spring Other Information That Helps Us Care for You: No Feels Safe at Home: Yes Safety Concerns: Feels Safe At This Time Smoking Status: Never smoker Hx Alcohol Use: No Hx Substance Use: No Beliefs That Will Affect Care: None Preferred Language: Irish Communication Ability: Effective Review of Systems Constitutional: + fever low grade of 99 degrees, intermittent sweats , no chills Eyes: No diplopia, no worsening or blurred vision ENT: normal hearing, no trouble swallowing, no sensation of food bolus getting stuck Respiratory: See HPI, + cough, sputum, dyspnea on exertion Cardiovascular: +chest pain over pacemaker site and with cough, no tightness or palpitations Abdomen: No pain, + nausea and vomiting, no diarrhea or constipation : chronic indwelling catheter Musculoskeletal:+ generalized joint pain, no calf pain, + increased lower leg swelling, no recent falls. Neurologic: + generalized weakness, no numbness/tingling, or balance problems Psychiatric: Hx of anxiety and depression, stable Skin: No rash or itch Physical Exam 2 Vital Signs (Past 24 Hours): Last Vital Signs Temp 36.8 C 04/24/18 11:57 Pulse 71 04/24/18 11:57 Resp 24 04/24/18 11:57 BP 171/84 H 04/24/18 11:57 Pulse Ox 97 04/24/18 11:57 Physical Exam: General: awake, alert, no apparent distress, + generalized pallor Head: Normocephalic, atraumatic ENT: PERRL, EOMI, no pharyngeal exudate or erythema, mucous membranes moist Chest: Clear to auscultation in left villalobos, diminished breath sounds in the right lower lobe, on one L via NC, no wheezes rales or rhonchi Cardiac: Regular rate and rhythm, PAULY grade II/, no JVD, normal peripheral pulses, good capillary refill Abdominal: NABS x 4 quadrants, soft, nontender to palpation, no rebound, guarding or tenderness, + indwelling catheter with clear yellow urine. Extremities: RUE AVF site with steri strips, no surrounding erythema, nontender to palpation of surrounding region, 2+ pitting BLE edema, no erythema, calfs nontender to palpation Psych: Normal mood and affect Neuro: AAO x 3, no motor deficits, speech is clear, no peripheral sensory deficits Constitutional: WD/WN, vitals as above Eyes: normal visual villalobos by confrontation and + anicteric sclerae Neck: normal visual inspection and trachea midline Respiratory: normal respiratory effort, lungs clear to auscultation Cardiovascular: Rate/Rhythm: regular rate and regular rhythm Gastrointestinal (Abdomen): Inspection/Auscultation: abdomen not distended Percussion/Palpation: abdomen soft; abdomen nontender Musculoskeletal: Head/Neck/Chest: normocephalic and head atraumatic Neg for peripheral LE edema, + pedal pulses Skin: no rashes, warm and dry Neurologic: awake; not confused Speech / Cognition: normal speech Psychiatric: A+Ox3, euthymic affect Lymphatic: Exam as done by Bijal Campbell DO Results & Data Diagnostic Findings XR chest 1V portable CLINICAL HISTORY: Chest Pain dyspnea COMPARISON STUDY: 12/03/2017 FINDINGS: Mild stable cardiomegaly. Median sternotomy. Prominent cardiac bipolar pacemaker. Mild emphysematous change. Mild upper lobe fibrotic change. No evidence for acute infiltrative change. IMPRESSION: Chronic and postoperative change. No acute process. ECG Additional Comments: 24-APR-2018 12:21:56 [facility] Atrial fibrillation with frequent ventricular-paced complexes Left bundle branch block Abnormal ECG When compared with ECG of 03-DEC-2017 18:53, Vent. rate has increased BY 3 BPM Vent. rate 73 BPM CO interval * ms QRS duration 126 ms QT/QTc 414/456 ms P-R-T axes * 15 247 Code Status & VTE Plan Code Status DNR Supervising Physician Co-Signing Physician Notes Pt seen and examined by me. Denies current chest pain or SOB. She does not use home O2 at baseline and feels this is helping her SOB now. She feels her chest pain has been present since her pacer replacement about 1 month ago. It comes and goes. Pt states that she has not been able to tolerate PO recently. At times it is a swallowing issue. Other times she is able to swallow but then "it comes right back up". She has had decreased PO intake. She can take her pills. She was losing weight until she suddenly gained 4 lbs yesterday and had LE swelling. Pt feels she has been weak from having 2 surgeries (pacer replacement and AV fistula placement) in the last month. She is having trouble with her balance and ambulation. Agree with HPI/ROS as noted by PA See above for my exam in PE section Agree with plan as outlined above Appears to have mild CHF exacerbation, additional bumex and monitor Decreased breath sounds ?? PNA, abx and monitor Generalized weakness and deconditioning s/p recent procedures PT/OT Flu neg, lactic acid WNL Speech and officer captain eval for recent PO intake issues
[2018-04-24 16:01] LABS: Appearance Urine Cloudy (Clear); Bacteria Urine Automated 4+ (Negative); Bilirubin Urine Negative (Negative); Blood Urine 1+ (Negative); Color Urine Yellow; Glucose Urine UA Negative (Negative); Ketones Urine Negative (Negative); Leukocyte Esterase Urine 1+ (Negative); Nitrite Urine Negative (Negative); Protein Urine 1+ (Negative); Specific Gravity Urine 1.008 (1.000-1.030); Urobilinogen Urine Negative (Negative); WBC Urine Automated >30 /hpf (0-5); pH Urine 5.5 (4.5-7.5)
[2018-04-24 16:24] LABS: Amorphous Sediment Urine Present (None Prsent); Cast Urine Automated 0 /lpf (0-5)
[2018-04-24] MEDS ORDERED: CARBOHYDRATES FOR HYPOGLYCEMIA PO PRN (16:38)
[2018-04-24] MEDS ORDERED: ONDANSETRON 4 MG OD TAB PO PRN (16:38)
[2018-04-24] MEDS ORDERED: DEXTROSE 50% 50 ML SYRINGE IV PRN (16:38)
[2018-04-24] MEDS ORDERED: GLUCOSE 40% GEL 15 GM TUBE PO PRN (16:38)
[2018-04-24] MEDS ORDERED: GLUCAGON FOR INJ 1 MG VIAL SQ PRN (16:38)
[2018-04-24] MEDS ORDERED: GLUCOSE 10 TABS/TUBE PO PRN (16:38)
[2018-04-24] MEDS ORDERED: BUMETANIDE 1 MG TAB PO ONE (17:00)
[2018-04-24] MEDS: cefTRIAXone SODIUM 1,000 MG in DEXTROSE 5% 50 ML IV SCH (17:50)
[2018-04-24] MEDS: INSULIN ASPART 100 UNITS/ML 3 ML PEN SC SCH ×2 (17:51→20:25)
[2018-04-24 17:53] LABS: Partial Thromboplastin Ratio 1.1; Partial Thromboplastin Time 27.8 Seconds (21.0-31.0); Prothrombin Time 10.5 Seconds (9.0-12.0)
[2018-04-24] MEDS: AZITHROMYCIN 250 MG in DEXTROSE 5% 250 ML IV SCH (18:29)
[2018-04-24] MEDS: LEVALBUTEROL HCL 0.63 MG/3 ML NEB INH SCH (19:04)
[2018-04-24] MEDS: DOCUSATE SODIUM 100 MG CAP PO SCH (20:22)
[2018-04-24] MEDS: OLMESARTAN MEDOXOMIL 5 MG TAB PO SCH (20:22)
[2018-04-24] MEDS: HEPARIN SOD 5,000 UNIT/0.5 ML VIAL SQ SCH (20:23)
[2018-04-24] MEDS: TOLTERODINE TARTRATE 2 MG TAB PO SCH (20:23)
[2018-04-24] MEDS: METOPROLOL TARTRATE 100 MG TAB PO SCH (20:24)
[2018-04-24] MEDS: guaiFENesin 600 MG TABCR PO SCH (20:24)
[2018-04-24] MEDS: OMEGA-3 (PURIFIED FISH OIL) 1 GM CAP PO SCH (20:27)
[2018-04-24] MEDS: BENZONATATE 100 MG CAPSULE PO SCH (20:27)
[2018-04-24] MEDS ORDERED: CRANBERRY 1000 MG PO SCH (21:00)
[2018-04-25] MEDS: ACETAMINOPHEN 500 MG TAB PO PRN ×2 (01:25→23:43)
[2018-04-25 04:14] LABS: Hemoglobin 10.1 g/dL (12.0-16.0); Mean Corpuscular Hgb Conc 31.6 g/dL (32-36); Mean Platelet Volume 8.4 fL (7.4-10.4); Platelet Count 218 K/uL (130-400); RDW Coefficient of Variation 16.9 % (11.5-14.5); RDW Standard Deviation 52.1 fL (36.4-46.3); Red Blood Count 3.81 M/uL (4.2-5.4); White Blood Count 9.53 K/uL (4.8-10.8)
[2018-04-25 04:34] LABS: Alanine Aminotransferase 25 U/L (12-78); Albumin Level 3.1 gm/dl (3.4-5.0); Aspartate Aminotransferase 18 U/L (15-37); BUN Creatinine Ratio 20.3 (10-20); Blood Urea Nitrogen 45 mg/dl (7-18); Calcium 8.5 mg/dl (8.5-10.1); Carbon Dioxide 27 mmol/L (21-32); Chloride 94 mmol/L (98-107); Creatinine Clr Calc Pharmacy 15.6 ml/min; Glucose 102 mg/dl (70-99); Potassium 4.5 mmol/L (3.5-5.1); Sodium 130 mmol/L (136-145)
[2018-04-25 04:39] LABS: Albumin Globulin Ratio 0.9 (0.9-2); Alkaline Phosphatase 89 U/L (45-117); Bilirubin,Total 0.6 mg/dl (0.2-1); Globulin 3.6 gm/dl (2.5-4.0); Total Protein 6.7 gm/dl (6.4-8.2); Troponin I < 0.015 ng/ml (0-0.045)
[2018-04-25] MEDS: LEVOTHYROXINE SODIUM 75 MCG TABLET PO SCH ×2 (05:15→05:34)
[2018-04-25] MEDS ORDERED: hydrOXYzine HCl 10 MG TAB PO ONE (05:33)
[2018-04-25] MEDS: ONDANSETRON INJ 2 MG/ML 2 ML VIAL IV PRN (05:39)
[2018-04-25] MEDS: LEVALBUTEROL HCL 0.63 MG/3 ML NEB INH SCH ×3 (07:05→19:49)
[2018-04-25] MEDS: OMEGA-3 (PURIFIED FISH OIL) 1 GM CAP PO SCH ×2 (08:43→20:16)
[2018-04-25] MEDS: guaiFENesin 600 MG TABCR PO SCH ×2 (08:44→20:15)
[2018-04-25] MEDS: METOPROLOL TARTRATE 100 MG TAB PO SCH ×2 (08:45→20:17)
[2018-04-25] MEDS: HEPARIN SOD 5,000 UNIT/0.5 ML VIAL SQ SCH ×2 (08:45→20:37)
[2018-04-25] MEDS: TOLTERODINE TARTRATE 2 MG TAB PO SCH ×2 (08:46→20:16)
[2018-04-25] MEDS: MAGNESIUM OXIDE 400 MG TAB PO SCH (08:47)
[2018-04-25] MEDS: BUMETANIDE 1 MG TAB PO SCH (08:47)
[2018-04-25] MEDS: ATORVASTATIN 10 MG TAB PO SCH (08:47)
[2018-04-25] MEDS: PANTOprazole 40 MG TAB PO SCH (08:47)
[2018-04-25] MEDS: LORATADINE 10 MG TAB PO SCH (08:47)
[2018-04-25] MEDS: CALCITRIOL 0.25 MCG CAPSULE PO SCH (08:47)
[2018-04-25] MEDS: BENZONATATE 100 MG CAPSULE PO SCH ×3 (08:47→20:17)
[2018-04-25] MEDS: DOCUSATE SODIUM 100 MG CAP PO SCH ×2 (08:47→20:15)
[2018-04-25] MEDS: FLUTICASONE PROPIONATE NA SPR 16 GM BTL SCH (08:49)
[2018-04-25] MEDS: INSULIN GLARGINE SOLOSTAR 100 UNITS/ML 3 ML PEN SQ SCH (08:49)
[2018-04-25] MEDS: INSULIN ASPART 100 UNITS/ML 3 ML PEN SC SCH ×4 (08:53→20:37)
[2018-04-25] MEDS ORDERED: NON-FORMULARY MEDICATION (Biotin [Biotin] 10,000 MCG) PO SCH (09:00)
[2018-04-25] MEDS ORDERED: NON-FORMULARY MEDICATION (Cholecalciferol (Vitamin D3) [Vitamin D3] 1,000 UNITS) PO SCH (09:00)
[2018-04-25] MEDS: ESCITALOPRAM OXALATE ORAL SOLN 5 MG/5 ML PO SCH (12:39)
[2018-04-25] MEDS: LORazepam 0.5 MG TAB PO SCH (12:39)
--- NOTE | 2018-04-25 17:44 | Family Medicine Progress Note ---
Date of Service April 25, 2018 Assessment & Plan (1) SOB (shortness of breath): 87yo female with possible CHF, pneumonia, and COPD exacerbation. - Flu swab neg, afebrile, WBC not elevated -Continue on Mucinex, Tessalon Perles, sputum culture, supplemental oxygen as needed, patient is currently on 1 L and normally does not require any. -Continue ceftriaxone and azithromycin IV -Chest x-ray reviewed without acute findings, however there are decreased breath sounds in the RLL compared to the left. -increasing shortness of breath which may be secondary to increased fluid retention as with increased edema in BLE's. - Bumex 1 mg PO everyday. 1 extra IV dose given today 04/25. (2) Chest pain: -trops negative -EKG reviewed, without acute findings -Diclofenac topical prn for pain -Patient had pacemaker placed approximately [address] Guido and follows with him routinely-she is tender over the incision site on exam. Consider cardiology consult if no improvement, or if worsening symptoms. (3) CHF (congestive heart failure): -Chronic, systolic and diastolic -Last EF was 40-45% checked in summer 2017 -On Bumex, consider giving extra doses as needed for SOB -Monitor a.m. PRP, daily weights, strict I's/ O's - Consider repeat ECHO however follows closely with cardiology as above (4) Atrial fibrillation: -Permanent, rate controlled on admission, continue digoxin 125 mcg MWF, metoprolol tartrate 100 mg BID -Patient is not on anticoagulation due to history of excessive epistaxis (5) Hypertension: -Continue metoprolol tartrate, digoxin, olmesartan and bumetanide (6) S/P quintuple vessel bypass: -Occurred in 2003 -Followed by PCI and RCA stent in 2008. Last cath was in June 2010. Initial pacemaker was placed in 2008. On 03/13/18 had generator replaced per outpt record review. (7) Pacemaker: As above (8) History of cardiac cath: As above (9) Severe mitral regurgitation: (10) Tricuspid regurgitation: (11) COPD (chronic obstructive pulmonary disease): - Has noted chronic dyspnea and chronic dry morning cough however this is now productive with yellow/green tinged sputum so will check sputum culture and treat with a dose of rocephin and azithromycin for pna coverage. -Continue abx -IV solumedrol started. -Check MRSA swab - Flu negative - Continue inhalers as [employer]IST[employer] meds. - Follows with IRINEO Hall as an outpatient. (12) Moderate to severe pulmonary hypertension: -Noted, stable (13) DM (diabetes mellitus): - Continue Lantus 30 units QAM - ISS with Accu-Cheks ordered -Diabetic diet -Last A1c was 8.2 checked on 04/15/18, no need to repeat (14) Chronic kidney disease: -Stage IV -Patient had RUE AVF placed ~[address] Anderson, site has Steri-Strips intact, no signs of surrounding erythema, edema or tenderness with palpation or surrounding location. - Monitor Cr. closely, increased dose of Bumex as above, am PRP - Cr.= 2.23, appears to have baseline =2.0-2.3 - Follows with Dr. Urias as outpatient. - Continue HH diet with 2 g sodium restriction - Chronic indwelling saenz will need changed within next week. Checking UA - urine clear yellow in bag, tubing appears clouded. (15) Hyponatremia: -Chronic, sodium = 127 upon admission, follow am PRP (16) GERD (gastroesophageal reflux disease): - Cont PPI (17) Anxiety: (18) Depression: - Stable, continue Lexapro 5 mg daily (19) DVT prophylaxis: - teds, scds, heparin subq Supervising Physician Co-Signing Physician Notes Attending attestation Pt seen and examined in concert with Dr. Aguayo. In agreement with the documented findings as noted in the resident documentation with any exceptions or additions as noted here. Had been feeling generally unwell since procedure last month, but with acute worsening the last few days and shortness of breath immediately following consuming a jar of pickles with at least 4 lb weight gain in one day. Reports feeling better since diuresis began, but still with shortness of breath walking to restroom. Denies abd pain, flank pain, fever/chills. On examination, decreased breath sounds at bilateral bases with diffuse rhonchi. S1/S2 nl IRR. Abd NT/ND BS +ve. Trace b/l LE edema to the mid samuels. Combined systolic and diastolic CHF last EF 40-45% with increase from dry weight. Gentle diuresis and avoidance of extra fluid where possible. Monitor renal function 2/2 CKD IV. Chest pain reproducible chest pain with light pressure sensation bilaterally , negative lab evaluation. UTI continue present abx regimen and follow up cultures COPD with exacerbation diffuse rhonchi suggest mild exacerbation without productive cough and XR as noted. Start IV methylpred and likely rapid taper with improvement. CKD IV w/ recent fistula placement, indwelling saenz Cr at baseline, monitor Else per resident documentation. Subjective Ms. Gil states she still feels unwell. Admits to occasional chest pain on her left chest wall that is sharp, does not radiate and started right after her pacemaker was implanted. Has some SOB and urinary catheter. Review of Systems All systems reviewed & are unremarkable except as noted in HPI & below Physical Exam 2 Vital Signs (Past 24 Hours): Last Vital Signs Temp 36.7 C 04/25/18 15:46 Pulse 80 04/25/18 15:46 Resp 18 04/25/18 15:46 BP 102/58 L 04/25/18 15:46 Pulse Ox 95 04/25/18 15:46 General: Alert, oriented. No acute distress HEENT: NC/AT, PERRL, EOMI, oropharynx moist. Chest: ++ tender to palpation on left. CV: RRR, Normal s1, s2. No murmurs appreciated Resp: Breath sounds decreased bilaterally, no increased effort of breathing. No crackles/rhonchi/rales. Extremities: No edema n upper thighs, compression socks on lower legs. Results & Data Laboratory Results Laboratory Results - last 24 hr 04/25/18 04/25/18 04/25/18 04:00 04:00 07:23 WBC 9.53 RBC 3.81 L Hgb 10.1 L Hct 32.0 L MCV 84.0 MCH 26.5 MCHC 31.6 L RDW Std Deviation 52.1 H RDW Coeff of Anthony 16.9 H Plt Count 218 MPV 8.4 Sodium 130 L Potassium 4.5 Chloride 94 L Carbon Dioxide 27 Anion Gap 8.0 BUN 45 H Creatinine 2.24 H Est Cr Clr Drug Dosing 15.6 Est GFR ( Amer) 22.0 Est GFR (Non-Af Amer) 19.0 BUN/Creatinine Ratio 20.3 H Glucose 102 H POC Glucose 105 H Calcium 8.5 Total Bilirubin 0.6 AST 18 ALT 25 Alkaline Phosphatase 89 Troponin I < 0.015 Total Protein 6.7 Albumin 3.1 L Globulin 3.6 Albumin/Globulin Ratio 0.9 04/25/18 04/25/18 04/25/18 11:33 16:13 20:03 WBC RBC Hgb Hct MCV MCH MCHC RDW Std Deviation RDW Coeff of Anthony Plt Count MPV Sodium Potassium Chloride Carbon Dioxide Anion Gap BUN Creatinine Est Cr Clr Drug Dosing Est GFR ( Amer) Est GFR (Non-Af Amer) BUN/Creatinine Ratio Glucose POC Glucose 123 H 106 H 265 H Calcium Total Bilirubin AST ALT Alkaline Phosphatase Troponin I Total Protein Albumin Globulin Albumin/Globulin Ratio Medications Administered Home Medications acetaminophen [Tylenol Extra Strength] 500 mg PO Q6H PRN 04/24/18 [History Confirmed 04/24/18] ascorbic acid (vitamin C) [Vitamin C] 500 mg PO QAM 04/24/18 [History Confirmed 04/24/18] atorvastatin 10 mg PO QAM 04/24/18 [History Confirmed 04/24/18] benzonatate 100 mg PO TID 04/24/18 [History Confirmed 04/24/18] biotin 10,000 mcg PO QAM 04/24/18 [History Confirmed 04/24/18] bumetanide 1 mg PO QAM 04/24/18 [History Confirmed 04/24/18] calcitriol 0.25 mg PO Q2D 04/24/18 [History Confirmed 04/24/18] cholecalciferol (vitamin D3) [Vitamin D3] 1,000 unit PO QAM 04/24/18 [History Confirmed 04/24/18] cranberry 1,000 mg PO BID 04/24/18 [History Confirmed 04/24/18] digoxin 125 mcg PO 3XWK 04/24/18 [History Confirmed 04/24/18] docusate sodium [Colace] 100 mg PO BID 04/24/18 [History Confirmed 04/24/18] escitalopram oxalate 5 mg PO QDL 04/24/18 [History Confirmed 04/24/18] fluticasone [Flonase Allergy Relief] 2 spray INTRANASAL DAILY 04/24/18 [History Confirmed 04/24/18] insulin glargine [Basaglar KwikPen U-100 Insulin] 30 unit SUBCUT QAM 04/24/18 [ History Confirmed 04/24/18] lansoprazole 30 mg PO QAM 04/24/18 [History Confirmed 04/24/18] levalbuterol HCl 0.63 mg INHALATION TID 04/24/18 [History Confirmed 04/24/18] levothyroxine 75 mcg PO QAM 04/24/18 [History Confirmed 04/24/18] loratadine 10 mg PO QAM 04/24/18 [History Confirmed 04/24/18] lorazepam 0.5 mg PO DAILY 04/24/18 [History Confirmed 04/24/18] magnesium oxide 400 mg PO QAM 04/24/18 [History Confirmed 04/24/18] metoprolol tartrate 100 mg PO BID 04/24/18 [History Confirmed 04/24/18] nitrofurantoin macrocrystal 50 mg PO HS 04/24/18 [History Confirmed 04/24/18] nitroglycerin [Nitrostat] 0.4 mg SUBLINGUAL UD 04/24/18 [History Confirmed 04/24] olmesartan 5 mg PO HS 04/24/18 [History Confirmed 04/24/18] omega-3 acid ethyl esters 2,000 mg PO BID 04/24/18 [History Confirmed 04/24/18] ondansetron 4 mg PO Q4H PRN 04/24/18 [History Confirmed 04/24/18] tolterodine 2 mg PO BID 04/24/18 [History Confirmed 04/24/18] Active Medications Acetaminophen (Tylenol) 500 mg PO Q6H PRN PRN Reason: Pain Stop: 05/24/18 16:37 Last Admin: 04/25/18 23:43 Dose: 500 mg Atorvastatin Calcium (Lipitor) [facility] [place] Stop: 05/25/18 08:59 Last Admin: 04/25/18 08:47 Dose: 10 mg Benzonatate (Tessalon Perle) 100 mg PO TID [facility] Stop: 05/24/18 20:59 Last Admin: 04/25/18 20:17 Dose: 100 mg Bumetanide (Bumex) 1 mg PO QAM [facility] Stop: 05/25/18 08:59 Last Admin: 04/25/18 08:47 Dose: 1 mg Calcitriol (Racaltrol) 0.25 mcg PO Q2D@0900 [facility] Stop: 05/25/18 08:59 Last Admin: 04/25/18 08:47 Dose: 0.25 mcg Dextrose (Dextrose 50%) 25 - 50 ml IV UD PRN; Protocol PRN Reason: Hypoglycemia Protocol Stop: 05/24/18 16:37 Diclofenac Sodium (Voltaren 1% Top) 1 appln EXT PRN [facility] Stop: 05/25/18 18:29 Last Admin: 04/25/18 23:51 Dose: Not Given Digoxin (Lanoxin) 0.125 mg PO MoWeFr@1600 [facility] Stop: 05/25/18 15:59 Last Admin: 04/25/18 17:51 Dose: 0.125 mg Docusate Sodium (Colace) 100 mg PO BID [facility] Stop: 05/24/18 20:59 Last Admin: 04/25/18 20:15 Dose: 100 mg Escitalopram Oxalate (Lexapro) 5 mg PO QDL [facility] Stop: 05/25/18 11:29 Last Admin: 04/25/18 12:39 Dose: 5 mg Fish Oil (Bozman-3 (Purified Fish Oil)) 2 gm PO BID [facility] Stop: 05/24/18 20:59 Last Admin: 04/25/18 20:16 Dose: 2 gm Fluticasone Propionate (Flonase) 2 sprays NA DAILY [facility] Stop: 05/25/18 08:59 Last Admin: 04/25/18 08:49 Dose: 2 sprays Glucagon (Glucagen) 1 mg SQ UD PRN; Protocol PRN Reason: Hypoglycemia Protocol Stop: 05/24/18 16:37 Glucose (Glucose 40%) 15 - 30 gm PO UD PRN; Protocol PRN Reason: Hypoglycemia Protocol Stop: 05/24/18 16:37 Glucose (Dex4 Glucose) 4 - 8 tabs PO UD PRN; Protocol PRN Reason: Hypoglycemia Protocol Stop: 05/24/18 16:37 Guaifenesin (Mucinex) 1,200 mg PO Q12 [facility] Stop: 05/24/18 20:59 Last Admin: 04/25/18 20:15 Dose: 1,200 mg Heparin Sodium (Porcine) (Heparin Sodium (Porcine)) 5,000 units SQ Q12 [facility] Stop: 05/24/18 20:59 Last Admin: 04/25/18 20:37 Dose: 5,000 units Ceftriaxone Sodium 1,000 mg/ (Dextrose) 50 mls @ 100 mls/hr IV DAILY@1700 [facility] Stop: 05/01/18 16:59 Last Infusion: 04/25/18 18:36 Dose: Infused Azithromycin 250 mg/ Dextrose 252.5 mls @ 125 mls/hr IV DAILY@1800 [facility] Stop: 05/01/18 17:59 Last Infusion: 04/25/18 21:49 Dose: Infused Methylprednisolone 40 mg/ (Syringe) 0.64 mls @ 1.5 mls/min IV Q12 [facility] Stop: 05/25/18 20:59 Last Admin: 04/25/18 20:14 Dose: 1.5 mls/min Insulin Aspart (Novolog Flexpen) 0 units SC ACHS [facility] Stop: 05/24/18 17:29 Last Admin: 04/25/18 20:37 Dose: 4 units Insulin Glargine (Lantus Solostar Pen) 30 units SQ QAM [facility] Stop: 05/25/18 08:59 Last Admin: 04/25/18 08:49 Dose: 30 units Levalbuterol HCl (Xopenex 0.63 Mg/3 Ml Neb) 0.63 mg INH TIDR [facility] Stop: 05/24/18 20:59 Last Admin: 04/25/18 19:49 Dose: 0.63 mg Levothyroxine Sodium (Synthroid) 75 mcg PO DAILYBB [facility] Stop: 05/25/18 06:29 Last Admin: 04/25/18 05:34 Dose: 75 mcg Loratadine (Claritin) 10 mg PO DAILY [facility] Stop: 05/25/18 08:59 Last Admin: 04/25/18 08:47 Dose: 10 mg Lorazepam (Ativan) 0.5 mg PO DAILY [facility] Stop: 05/25/18 08:59 Last Admin: 04/25/18 12:39 Dose: 0.5 mg Magnesium Oxide (Mag-Ox) 400 mg PO DAILY [facility] Stop: 05/25/18 08:59 Last Admin: 04/25/18 08:47 Dose: 400 mg Metoprolol Tartrate (Lopressor) 100 mg PO BID [facility] Stop: 05/24/18 20:59 Last Admin: 04/25/18 20:17 Dose: 100 mg Miscellaneous (Carbohydrates For Hypoglycemia) 15 - 30 gm PO UD PRN PRN Reason: Hypoglycemia Treatment Stop: 05/24/18 16:37 Olmesartan (Benicar) 5 mg PO HS [facility] Stop: 05/24/18 20:59 Last Admin: 04/25/18 21:14 Dose: 5 mg Ondansetron HCl (Zofran Odt) 4 mg PO Q4H PRN PRN Reason: Nausea And Vomiting Stop: 05/24/18 16:37 Ondansetron HCl (Zofran) 4 mg IV Q4H PRN PRN Reason: Nausea And Vomiting Stop: 05/24/18 16:37 Last Admin: 04/25/18 05:39 Dose: 4 mg Pantoprazole Sodium (Protonix) 40 mg PO DAILY [facility] Stop: 05/25/18 08:59 Last Admin: 04/25/18 08:47 Dose: 40 mg Tolterodine Tartrate (Detrol) 2 mg PO BID [facility] Stop: 05/24/18 20:59 Last Admin: 04/25/18 20:16 Dose: 2 mg
[2018-04-25] MEDS: cefTRIAXone SODIUM 1,000 MG in DEXTROSE 5% 50 ML IV SCH (17:50)
[2018-04-25] MEDS: DIGOXIN 0.125 MG TAB PO SCH (17:51)
[2018-04-25] MEDS: AZITHROMYCIN 250 MG in DEXTROSE 5% 250 ML IV SCH (18:06)
[2018-04-25] MEDS ORDERED: BUMETANIDE 1 MG in SYRINGE 0 ML IV ONE (18:30)
[2018-04-25] MEDS: methylPREDNISolone 40 MG in SYRINGE 0 ML IV SCH (20:14)
[2018-04-25] MEDS: DICLOFENAC SOD 1% GEL 100 GM TUBE EXT SCH ×2 (20:36→23:51)
[2018-04-25] MEDS: OLMESARTAN MEDOXOMIL 5 MG TAB PO SCH (21:14)
[2018-04-26] MEDS: LEVOTHYROXINE SODIUM 75 MCG TABLET PO SCH (06:20)
[2018-04-26 07:01] LABS: Basophils # (auto) 0.01 K/uL (0-0.2); Basophils % (auto) 0.2 %; Hematocrit (blood only) 34.5 % (37-47); Hemoglobin 10.9 g/dL (12.0-16.0); Immature Granulocytes # (auto) 0.01 K/uL (0.00-0.02); Immature Granulocytes % (auto) 0.2 %; Lymphocytes # (auto) 0.99 K/uL (1.2-3.4); Lymphocytes % (auto) 17.4 %; Mean Corpuscular Hgb Conc 31.6 g/dL (32-36); Mean Corpuscular Volume 83.3 fL (80-100); Mean Platelet Volume 9.2 fL (7.4-10.4); Monocytes # (auto) 0.14 K/uL (0.11-0.59); Monocytes % (auto) 2.5 %; Neutrophils # (auto) 4.55 K/uL (1.4-6.5); Neutrophils % (auto) 79.7 %; Platelet Count 266 K/uL (130-400); RDW Coefficient of Variation 16.7 % (11.5-14.5); RDW Standard Deviation 50.6 fL (36.4-46.3); Red Blood Count 4.14 M/uL (4.2-5.4)
[2018-04-26] MEDS: LEVALBUTEROL HCL 0.63 MG/3 ML NEB INH SCH ×3 (07:02→19:26)
[2018-04-26 07:34] LABS: Albumin Globulin Ratio 0.8 (0.9-2); Albumin Level 3.1 gm/dl (3.4-5.0); BUN Creatinine Ratio 20.4 (10-20); Bilirubin,Total 0.6 mg/dl (0.2-1); Calcium 8.8 mg/dl (8.5-10.1); Creatinine Clr Calc Pharmacy 15.1 ml/min; Est GFR (Non-African American) 18.1; Potassium 5.2 mmol/L (3.5-5.1); Total Protein 7.1 gm/dl (6.4-8.2)
[2018-04-26] MEDS: LORazepam 0.5 MG TAB PO SCH (08:34)
[2018-04-26] MEDS: DICLOFENAC SOD 1% GEL 100 GM TUBE EXT SCH ×2 (08:34→18:38)
[2018-04-26] MEDS: FLUTICASONE PROPIONATE NA SPR 16 GM BTL SCH (08:35)
[2018-04-26] MEDS: HEPARIN SOD 5,000 UNIT/0.5 ML VIAL SQ SCH ×2 (08:35→21:18)
[2018-04-26] MEDS: DOCUSATE SODIUM 100 MG CAP PO SCH ×2 (08:35→21:21)
[2018-04-26] MEDS: BUMETANIDE 1 MG TAB PO SCH (08:36)
[2018-04-26] MEDS: PANTOprazole 40 MG TAB PO SCH (08:36)
[2018-04-26] MEDS: TOLTERODINE TARTRATE 2 MG TAB PO SCH ×2 (08:36→21:22)
[2018-04-26] MEDS: OMEGA-3 (PURIFIED FISH OIL) 1 GM CAP PO SCH ×2 (08:36→21:19)
[2018-04-26] MEDS: MAGNESIUM OXIDE 400 MG TAB PO SCH (08:36)
[2018-04-26] MEDS: guaiFENesin 600 MG TABCR PO SCH ×2 (08:36→21:21)
[2018-04-26] MEDS: BENZONATATE 100 MG CAPSULE PO SCH ×3 (08:36→21:18)
[2018-04-26] MEDS: LORATADINE 10 MG TAB PO SCH (08:36)
[2018-04-26] MEDS: METOPROLOL TARTRATE 100 MG TAB PO SCH ×2 (08:36→21:20)
[2018-04-26] MEDS: ATORVASTATIN 10 MG TAB PO SCH (08:37)
[2018-04-26] MEDS: INSULIN GLARGINE SOLOSTAR 100 UNITS/ML 3 ML PEN SQ SCH (08:37)
[2018-04-26] MEDS: INSULIN ASPART 100 UNITS/ML 3 ML PEN SC SCH ×4 (08:39→21:23)
[2018-04-26] MEDS: methylPREDNISolone 40 MG in SYRINGE 0 ML IV SCH ×2 (08:56→21:19)
[2018-04-26] MEDS: ESCITALOPRAM OXALATE ORAL SOLN 5 MG/5 ML PO SCH (12:42)
--- NOTE | 2018-04-26 18:15 | Family Medicine Progress Note ---
Date of Service April 26, 2018 Assessment & Plan (1) SOB (shortness of breath): 87yo female with possible CHF, pneumonia, and COPD exacerbation. 1) SOB - Flu swab neg, afebrile, WBC not elevated -Continue on Mucinex, Tessalon Perles, sputum culture, supplemental oxygen as needed, currently on RA -Continue ceftriaxone and azithromycin IV -Chest x-ray reviewed without acute findings -increasing shortness of breath which may be secondary to increased fluid retention as with increased edema in BLE's. - Bumex 1 mg PO everyday 2) Chest pain -trops negative -EKG reviewed, without acute findings -Diclofenac topical prn for pain over incision site -Patient had pacemaker placed approximately [address] Guido and follows with him routinely-she is tender over the incision site on exam. -Consider cardiology consult if no improvement, or if worsening symptoms. 3) CHF -Chronic, systolic and diastolic -Last EF was 40-45% checked in summer 2017 -On Bumex, consider giving extra doses as needed for SOB -Monitor a.m. PRP, daily weights, strict I's/ O's - Will repeat ECHO -placed on 1500 ml fluid restriction 4) Atrial fibrillation -Permanent, rate controlled on admission, continue digoxin 125 mcg MWF, metoprolol tartrate 100 mg BID -Patient is not on anticoagulation due to history of excessive epistaxis 5) Hypertension -Continue metoprolol tartrate, digoxin, olmesartan and bumetanide 6) S/P quintuple vessel bypass: -Occurred in 2003 -Followed by PCI and RCA stent in 2008. Last cath was in June 2010. Initial pacemaker was placed in 2008. On 03/13/18 had generator replaced per outpt record review. 7) COPD - Has noted chronic dyspnea and chronic dry morning cough however this is now productive with yellow/green tinged sputum -sputum cx pending -Continue abx rocephin/zithromax for PNA coverage -IV solumedrol started. -Check MRSA swab - Flu negative - Continue inhalers as [employer] meds. - Follows with IRINEO Hall as an outpatient. 8) DM - Continue Lantus 30 units QAM, will re-assess and change as needed. Same as ISS. - ISS with Accu-Cheks ordered -Diabetic diet -Last A1c was 8.2 checked on 04/15/18, no need to repeat 9) Chronic kidney disease Stage IV -Patient had RUE AVF placed ~[address] Anderson, site has Steri-Strips intact, no signs of surrounding erythema, edema or tenderness with palpation or surrounding location. - Monitor Cr. closely increased dose of Bumex as above, am PRP - Cr.= 2.33, appears to have baseline =2.0-2.3 - Follows with Dr. Urias as outpatient. - Continue HH diet with 2 g sodium restriction - Chronic indwelling saenz will need changed within next week. Checking UA - urine clear yellow in bag, tubing appears clouded. 10) GERD - Cont PPI 11) Depression - Stable, continue Lexapro 5 mg daily 12) UTI -urine cx shows E. Coli -on abx currently DNR DVT prophylaxis: teds, scds, heparin subq Dispo: [facility] has a bed when ready for d/c Supervising Physician Co-Signing Physician Notes Attending attestation Pt seen and examined in concert with Dr. Garcia. In agreement with the documented findings as noted in the resident documentation with any exceptions or additions as noted here. Pt reports overall improvement in fatigue and appetite today, as well as easier ambulation short distances compared to yesterday. Mild shortness of breath persists at rest with diminished cough. On examination, S1/S2 nl RRR no MCG. Decreased breath sounds with rhonchi throughout, less prominent today, trace b/l LE edema to the mid samuels. Per nursing, I/O count likely in error, minimal intake at this time. Acute CHF exacerbation improving, likely negative overall fluid balance. Fluid restrict to be sure, continue diuresis and monitor I/Os COPD with exacerbation continue steroid therapy and azithromycin with duoneb q4P. DMII with elevated glucose will increase basal dose today based on ISS need. Hypernatremia likely 2/2 hyperglycemia, monitor and correct glucose. Deconditioning PT/OT consultation appreciated. Else per resident documentation as noted. Subjective 87 y/o F found in bed this AM in NAD. Reports no acute overnight events. Today reports decreased appetite and just not feeling herself. Still has some SOB and tenderness over incision site of pacemaker. Pt not able to ambulate very well. Tolerating PO intake. No issues voiding. Pt has no other acute concerns or complaints. Physical Exam 2 Vital Signs (Past 24 Hours): Last Vital Signs Temp 36.6 C 04/26/18 07:24 Pulse 66 04/26/18 14:05 Resp 16 04/26/18 14:05 BP 133/52 L 04/26/18 07:24 Pulse Ox 94 04/26/18 14:05 Constitutional: WD/WN, vitals as above Eyes: PERRL, conjunctivae normal, anicteric sclerae ENMT: external ear and nose normal, oropharynx normal Respiratory: decreased breath sounds b/l Cardiovascular: RRR, no murmur, no edema Gastrointestinal (Abdomen): normal bowel sounds, soft, nontender, no hepatosplenomegaly Skin: incision site C/D/I Psychiatric: A+Ox3, euthymic affect Lymphatic: no LE swelling Results & Data Laboratory Results Laboratory Results - last 24 hr 04/25/18 04/26/18 04/26/18 20:03 06:25 06:25 WBC 5.70 RBC 4.14 L Hgb 10.9 L Hct 34.5 L MCV 83.3 MCH 26.3 MCHC 31.6 L RDW Std Deviation 50.6 H RDW Coeff of Anthony 16.7 H Plt Count 266 MPV 9.2 Immature Gran % (Auto) 0.2 Neut % (Auto) 79.7 Lymph % (Auto) 17.4 [place] % (Auto) 2.5 Eos % (Auto) 0.0 Baso % (Auto) 0.2 Immature Gran # (Auto) 0.01 Neut # (Auto) 4.55 Lymph # (Auto) 0.99 L [place] # (Auto) 0.14 Eos # (Auto) 0.00 Baso # (Auto) 0.01 Sodium 124 L Potassium 5.2 H D Chloride 92 L Carbon Dioxide 25 Anion Gap 7.0 BUN 48 H Creatinine 2.33 H Est Cr Clr Drug Dosing 15.1 Est GFR ( Amer) 21.0 Est GFR (Non-Af Amer) 18.1 BUN/Creatinine Ratio 20.4 H Glucose 230 H POC Glucose 265 H Calcium 8.8 Total Bilirubin 0.6 AST 17 ALT 23 Alkaline Phosphatase 90 Total Protein 7.1 Albumin 3.1 L Globulin 4.0 Albumin/Globulin Ratio 0.8 L 04/26/18 04/26/18 04/26/18 07:19 11:42 11:43 WBC RBC Hgb Hct MCV MCH MCHC RDW Std Deviation RDW Coeff of Anthony Plt Count MPV Immature Gran % (Auto) Neut % (Auto) Lymph % (Auto) [place] % (Auto) Eos % (Auto) Baso % (Auto) Immature Gran # (Auto) Neut # (Auto) Lymph # (Auto) [place] # (Auto) Eos # (Auto) Baso # (Auto) Sodium Potassium Chloride Carbon Dioxide Anion Gap BUN Creatinine Est Cr Clr Drug Dosing Est GFR ( Amer) Est GFR (Non-Af Amer) BUN/Creatinine Ratio Glucose POC Glucose 258 H 357 H* 316 H Calcium Total Bilirubin AST ALT Alkaline Phosphatase Total Protein Albumin Globulin Albumin/Globulin Ratio 04/26/18 16:07 WBC RBC Hgb Hct MCV MCH MCHC RDW Std Deviation RDW Coeff of Anthony Plt Count MPV Immature Gran % (Auto) Neut % (Auto) Lymph % (Auto) [place] % (Auto) Eos % (Auto) Baso % (Auto) Immature Gran # (Auto) Neut # (Auto) Lymph # (Auto) [place] # (Auto) Eos # (Auto) Baso # (Auto) Sodium Potassium Chloride Carbon Dioxide Anion Gap BUN Creatinine Est Cr Clr Drug Dosing Est GFR ( Amer) Est GFR (Non-Af Amer) BUN/Creatinine Ratio Glucose POC Glucose 341 H Calcium Total Bilirubin AST ALT Alkaline Phosphatase Total Protein Albumin Globulin Albumin/Globulin Ratio Medications Administered Current Inpatient Medications Acetaminophen (Tylenol) 500 mg PO Q6H PRN PRN Reason: Pain Stop: 05/24/18 16:37 Last Admin: 04/25/18 23:43 Dose: 500 mg Atorvastatin Calcium (Lipitor) 10 mg PO QAM [facility] Stop: 05/25/18 08:59 Last Admin: 04/26/18 08:37 Dose: 10 mg Benzonatate (Tessalon Perle) 100 mg PO TID [facility] Stop: 05/24/18 20:59 Last Admin: 04/26/18 12:42 Dose: 100 mg Bumetanide (Bumex) 1 mg PO QAM [facility] Stop: 05/25/18 08:59 Last Admin: 04/26/18 08:36 Dose: 1 mg Calcitriol (Racaltrol) 0.25 mcg PO Q2D@0900 [facility] Stop: 05/25/18 08:59 Last Admin: 04/25/18 08:47 Dose: 0.25 mcg Dextrose (Dextrose 50%) 25 - 50 ml IV UD PRN; Protocol PRN Reason: Hypoglycemia Protocol Stop: 05/24/18 16:37 Diclofenac Sodium (Voltaren 1% Top) 1 appln EXT PRN [facility] Stop: 05/25/18 18:29 Last Admin: 04/26/18 08:34 Dose: 1 appln Digoxin (Lanoxin) 0.125 mg PO MoWeFr@1600 [facility] Stop: 05/25/18 15:59 Last Admin: 04/25/18 17:51 Dose: 0.125 mg Docusate Sodium (Colace) 100 mg PO BID [facility] Stop: 05/24/18 20:59 Last Admin: 04/26/18 08:35 Dose: 100 mg Escitalopram Oxalate (Lexapro) 5 mg PO QDL [facility] Stop: 05/27/18 11:29 Fish Oil ([place]-3 (Purified Fish Oil)) 2 gm PO BID [facility] Stop: 05/24/18 20:59 Last Admin: 04/26/18 08:36 Dose: 2 gm Fluticasone Propionate (Flonase) 2 sprays NA DAILY [facility] Stop: 05/25/18 08:59 Last Admin: 04/26/18 08:35 Dose: 2 sprays Glucagon (Glucagen) 1 mg SQ UD PRN; Protocol PRN Reason: Hypoglycemia Protocol Stop: 05/24/18 16:37 Glucose (Glucose 40%) 15 - 30 gm PO UD PRN; Protocol PRN Reason: Hypoglycemia Protocol Stop: 05/24/18 16:37 Glucose (Dex4 Glucose) 4 - 8 tabs PO UD PRN; Protocol PRN Reason: Hypoglycemia Protocol Stop: 05/24/18 16:37 Guaifenesin (Mucinex) 1,200 mg PO Q12 [facility] Stop: 05/24/18 20:59 Last Admin: 04/26/18 08:36 Dose: 1,200 mg Heparin Sodium (Porcine) (Heparin Sodium (Porcine)) 5,000 units SQ Q12 [facility] Stop: 05/24/18 20:59 Last Admin: 04/26/18 08:35 Dose: 5,000 units Ceftriaxone Sodium 1,000 mg/ (Dextrose) 50 mls @ 100 mls/hr IV DAILY@1700 [facility] Stop: 05/01/18 16:59 Last Infusion: 04/25/18 18:36 Dose: Infused Azithromycin 250 mg/ Dextrose 252.5 mls @ 125 mls/hr IV DAILY@1800 [facility] Stop: 05/01/18 17:59 Last Infusion: 04/25/18 21:49 Dose: Infused Methylprednisolone 40 mg/ (Syringe) 0.64 mls @ 1.5 mls/min IV Q12 [facility] Stop: 05/25/18 20:59 Last Admin: 04/26/18 08:56 Dose: 1.5 mls/min Insulin Aspart (Novolog Flexpen) 0 units SC ACHS [facility] Stop: 05/24/18 17:29 Last Admin: 04/26/18 12:42 Dose: 8 units Insulin Glargine (Lantus Solostar Pen) 30 units SQ QAM [facility] Stop: 05/25/18 08:59 Last Admin: 04/26/18 08:37 Dose: 30 units Levalbuterol HCl (Xopenex 0.63 Mg/3 Ml Neb) 0.63 mg INH TIDR [facility] Stop: 05/24/18 20:59 Last Admin: 04/26/18 14:03 Dose: 0.63 mg Levothyroxine Sodium (Synthroid) 75 mcg PO DAILYBB [facility] Stop: 05/25/18 06:29 Last Admin: 04/26/18 06:20 Dose: 75 mcg Loratadine (Claritin) 10 mg PO DAILY [facility] Stop: 05/25/18 08:59 Last Admin: 04/26/18 08:36 Dose: 10 mg Lorazepam (Ativan) 0.5 mg PO DAILY [facility] Stop: 05/25/18 08:59 Last Admin: 04/26/18 08:34 Dose: 0.5 mg Magnesium Oxide (Mag-Ox) 400 mg PO DAILY [facility] Stop: 05/25/18 08:59 Last Admin: 04/26/18 08:36 Dose: 400 mg Metoprolol Tartrate (Lopressor) 100 mg PO BID [facility] Stop: 05/24/18 20:59 Last Admin: 04/26/18 08:36 Dose: 100 mg Miscellaneous (Carbohydrates For Hypoglycemia) 15 - 30 gm PO UD PRN PRN Reason: Hypoglycemia Treatment Stop: 05/24/18 16:37 Olmesartan (Benicar) 5 mg PO HS [facility] Stop: 05/24/18 20:59 Last Admin: 04/25/18 21:14 Dose: 5 mg Ondansetron HCl (Zofran Odt) 4 mg PO Q4H PRN PRN Reason: Nausea And Vomiting Stop: 05/24/18 16:37 Ondansetron HCl (Zofran) 4 mg IV Q4H PRN PRN Reason: Nausea And Vomiting Stop: 05/24/18 16:37 Last Admin: 04/25/18 05:39 Dose: 4 mg Pantoprazole Sodium (Protonix) 40 mg PO DAILY [facility] Stop: 05/25/18 08:59 Last Admin: 04/26/18 08:36 Dose: 40 mg Tolterodine Tartrate (Detrol) 2 mg PO BID [facility] Stop: 05/24/18 20:59 Last Admin: 04/26/18 08:36 Dose: 2 mg Resident Activity Tracking Resident Involvement: Resident Care Provided Care Provided: Adult Hospital Medicine
[2018-04-26] MEDS: cefTRIAXone SODIUM 1,000 MG in DEXTROSE 5% 50 ML IV SCH (18:36)
[2018-04-26] MEDS: AZITHROMYCIN 250 MG in DEXTROSE 5% 250 ML IV SCH (18:40)
[2018-04-26] MEDS: OLMESARTAN MEDOXOMIL 5 MG TAB PO SCH (21:20)
[2018-04-27] MEDS: INSULIN ASPART 100 UNITS/ML 3 ML PEN SC SCH ×5 (00:32→21:42)
[2018-04-27] MEDS: LEVOTHYROXINE SODIUM 75 MCG TABLET PO SCH (06:11)
[2018-04-27 07:07] LABS: Hematocrit (blood only) 31.4 % (37-47); Hemoglobin 10.1 g/dL (12.0-16.0); Immature Granulocytes # (auto) 0.03 K/uL (0.00-0.02); Immature Granulocytes % (auto) 0.3 %; Lymphocytes # (auto) 0.92 K/uL (1.2-3.4); Lymphocytes % (auto) 8.2 %; Mean Corpuscular Hgb Conc 32.2 g/dL (32-36); Mean Corpuscular Volume 82.2 fL (80-100); Mean Platelet Volume 8.8 fL (7.4-10.4); Monocytes % (auto) 2.7 %; Neutrophils # (auto) 9.92 K/uL (1.4-6.5); Neutrophils % (auto) 88.8 %; Platelet Count 266 K/uL (130-400); RDW Coefficient of Variation 16.7 % (11.5-14.5); RDW Standard Deviation 50.1 fL (36.4-46.3); Red Blood Count 3.82 M/uL (4.2-5.4); White Blood Count 11.17 K/uL (4.8-10.8)
[2018-04-27] MEDS: LEVALBUTEROL HCL 0.63 MG/3 ML NEB INH SCH ×3 (07:31→18:45)
[2018-04-27 07:42] LABS: BUN Creatinine Ratio 24.9 (10-20); Calcium 8.5 mg/dl (8.5-10.1); Creatinine Clr Calc Pharmacy 14.6 ml/min; Est GFR (African American) 19.9; Est GFR (Non-African American) 17.2; Potassium 5.3 mmol/L (3.5-5.1)
[2018-04-27 07:45] LABS: Albumin Globulin Ratio 0.8 (0.9-2); Bilirubin,Total 0.5 mg/dl (0.2-1); Globulin 3.6 gm/dl (2.5-4.0); Total Protein 6.6 gm/dl (6.4-8.2)
[2018-04-27] MEDS: methylPREDNISolone 40 MG in SYRINGE 0 ML IV SCH ×2 (08:22→20:16)
[2018-04-27] MEDS: LORazepam 0.5 MG TAB PO SCH (08:22)
[2018-04-27] MEDS: HEPARIN SOD 5,000 UNIT/0.5 ML VIAL SQ SCH ×2 (08:22→20:15)
[2018-04-27] MEDS: INSULIN GLARGINE SOLOSTAR 100 UNITS/ML 3 ML PEN SQ SCH (08:23)
[2018-04-27] MEDS: FLUTICASONE PROPIONATE NA SPR 16 GM BTL SCH (08:23)
[2018-04-27] MEDS: DOCUSATE SODIUM 100 MG CAP PO SCH ×2 (08:24→20:18)
[2018-04-27] MEDS: PANTOprazole 40 MG TAB PO SCH (08:24)
[2018-04-27] MEDS: BUMETANIDE 1 MG TAB PO SCH (08:24)
[2018-04-27] MEDS: ATORVASTATIN 10 MG TAB PO SCH (08:24)
[2018-04-27] MEDS: LORATADINE 10 MG TAB PO SCH (08:24)
[2018-04-27] MEDS: TOLTERODINE TARTRATE 2 MG TAB PO SCH ×2 (08:24→20:18)
[2018-04-27] MEDS: METOPROLOL TARTRATE 100 MG TAB PO SCH ×2 (08:24→20:16)
[2018-04-27] MEDS: guaiFENesin 600 MG TABCR PO SCH ×2 (08:24→20:18)
[2018-04-27] MEDS: BENZONATATE 100 MG CAPSULE PO SCH ×3 (08:25→20:17)
[2018-04-27] MEDS: CALCITRIOL 0.25 MCG CAPSULE PO SCH (08:25)
[2018-04-27] MEDS: OMEGA-3 (PURIFIED FISH OIL) 1 GM CAP PO SCH ×2 (08:25→20:19)
[2018-04-27] MEDS: MAGNESIUM OXIDE 400 MG TAB PO SCH (08:25)
[2018-04-27] MEDS ORDERED: INSULIN GLARGINE SOLOSTAR 100 UNITS/ML 3 ML PEN SC ONE (11:15)
[2018-04-27] MEDS: ESCITALOPRAM OXALATE ORAL SOLN 5 MG/5 ML PO SCH (12:44)
[2018-04-27] MEDS: FAMOTIDINE 20 MG TAB PO SCH ×2 (12:52→20:17)
--- NOTE | 2018-04-27 13:12 | Family Medicine Progress Note ---
Date of Service April 27, 2018 Assessment & Plan (1) SOB (shortness of breath): 87yo female with possible CHF, pneumonia, and COPD exacerbation. 1) SOB - Flu swab neg, afebrile, WBC not elevated -Continue on Mucinex, Tessalon Perles, sputum culture, supplemental oxygen as needed, currently on RA -Continue ceftriaxone and azithromycin IV -Chest x-ray reviewed without acute findings -increasing shortness of breath which may be secondary to increased fluid retention as with increased edema in BLE's. - Bumex 1 mg PO everyday 2) Chest pain -trops negative -EKG reviewed, without acute findings -Diclofenac topical prn for pain over incision site -Patient had pacemaker placed approximately [address] Guido and follows with him routinely-she is tender over the incision site on exam. -Consider cardiology consult if no improvement, or if worsening symptoms. 3) CHF -Chronic, systolic and diastolic -Last EF was 40-45% checked in summer 2017 -On Bumex, consider giving extra doses as needed for SOB -Monitor a.m. PRP, daily weights, strict I's/ O's - Will repeat ECHO -placed on 1500 ml fluid restriction 4) Atrial fibrillation -Permanent, rate controlled on admission, continue digoxin 125 mcg MWF, metoprolol tartrate 100 mg BID -Patient is not on anticoagulation due to history of excessive epistaxis 5) Hypertension -Continue metoprolol tartrate, digoxin, olmesartan and bumetanide 6) S/P quintuple vessel bypass: -Occurred in 2003 -Followed by PCI and RCA stent in 2008. Last cath was in June 2010. Initial pacemaker was placed in 2008. On 03/13/18 had generator replaced per outpt record review. 7) COPD - Has noted chronic dyspnea and chronic dry morning cough however this is now productive with yellow/green tinged sputum -sputum cx : Light normal patricia present, final report to follow -Continue abx rocephin/zithromax for PNA coverage -cont IV solumedrol -Check MRSA swab - Flu negative - Continue inhalers as [employer] meds. - Follows with IRINEO Hall as an outpatient. 8) DM - Continue Lantus 30 units QAM. Added 10 units today. Adjusted ISS protocol for tighter control. Will cont monitor BSG and re-assess and change as needed. - ISS with Accu-Cheks ordered -Diabetic diet -Last A1c was 8.2 checked on 04/15/18, no need to repeat 9) Chronic kidney disease Stage IV -Patient had RUE AVF placed ~[address] Anderson, site has Steri-Strips intact, no signs of surrounding erythema, edema or tenderness with palpation or surrounding location. - Monitor Cr. closely increased dose of Bumex as above, am PRP - Cr.= 2.33, appears to have baseline =2.0-2.3 - Follows with Dr. Urias as outpatient. - Continue HH diet with 2 g sodium restriction - Chronic indwelling saenz will need changed within next week. Checking UA - urine clear yellow in bag, tubing appears clouded. 10) GERD - Cont PPI 11) Depression - Stable, continue Lexapro 5 mg daily 12) UTI -urine cx shows E. Coli -on abx currently 13) Nausea -likely 2/2 gastritis 2/2 steroids -added famotidine 20 mg PO BID DNR DVT prophylaxis: teds, scds, heparin subq Dispo: [facility] has a bed when ready for d/c Supervising Physician Co-Signing Physician Notes Attending attestation Pt seen and examined in concert with Dr. Garcia. In agreement with the documented findings as noted in the resident documentation with any exceptions or additions as noted here. Gradual improvement in overall fatigue and shortness of breath which persists with ambulation. On examination, S1/S2 nl RRR, decreased breath sounds thoughout, worse at bases , mild rhonchi and wheeze. Acute CHF exacerbation - fluid restricted to 1500 mL. Additional 1mg Bumex IV today. Continue PO daily. Monitor I/O COPD exacerbation - improving with steroid therapy and azithromycin, duoneb. DMII with hyperglycemia - titrate ISS and basal dose - increase glargine to 40U today Else see resident documentation as noted. Subjective 87 y/o F found in bed this AM in NAD. Reports no acute overnight events. Today reports of nausea in the AM, will get zofran and evaluate. Still has some SOB and tenderness over incision site of pacemaker. Pt not able to ambulate very well. Tolerating PO intake. No issues voiding. Pt has no other acute concerns or complaints. Physical Exam 2 Vital Signs (Past 24 Hours): Last Vital Signs Temp 37.0 C 04/27/18 07:23 Pulse 70 04/27/18 07:31 Resp 16 04/27/18 07:31 BP 153/68 H 04/27/18 07:23 Pulse Ox 94 04/27/18 08:00 Constitutional: WD/WN, vitals as above Eyes: PERRL, conjunctivae normal, anicteric sclerae ENMT: external ear and nose normal, oropharynx normal Respiratory: decreased breath sounds b/l Cardiovascular: RRR, no murmur, no edema Gastrointestinal (Abdomen): normal bowel sounds, soft, nontender, no hepatosplenomegaly Psychiatric: A+Ox3, euthymic affect Results & Data Laboratory Results Laboratory Results - last 24 hr 04/26/18 04/26/18 04/26/18 16:07 20:12 20:14 WBC RBC Hgb Hct MCV MCH MCHC RDW Std Deviation RDW Coeff of Anthony Plt Count MPV Immature Gran % (Auto) Neut % (Auto) Lymph % (Auto) [place] % (Auto) Eos % (Auto) Baso % (Auto) Immature Gran # (Auto) Neut # (Auto) Lymph # (Auto) [place] # (Auto) Eos # (Auto) Baso # (Auto) Sodium Potassium Chloride Carbon Dioxide Anion Gap BUN Creatinine Est Cr Clr Drug Dosing Est GFR ( Amer) Est GFR (Non-Af Amer) BUN/Creatinine Ratio Glucose POC Glucose 341 H 387 H* 372 H* Calcium Total Bilirubin AST ALT Alkaline Phosphatase Total Protein Albumin Globulin Albumin/Globulin Ratio 04/27/18 04/27/18 04/27/18 00:06 06:33 06:33 WBC 11.17 H RBC 3.82 L Hgb 10.1 L Hct 31.4 L MCV 82.2 MCH 26.4 MCHC 32.2 RDW Std Deviation 50.1 H RDW Coeff of Anthony 16.7 H Plt Count 266 MPV 8.8 Immature Gran % (Auto) 0.3 Neut % (Auto) 88.8 Lymph % (Auto) 8.2 [place] % (Auto) 2.7 Eos % (Auto) 0.0 Baso % (Auto) 0.0 Immature Gran # (Auto) 0.03 H Neut # (Auto) 9.92 H Lymph # (Auto) 0.92 L [place] # (Auto) 0.30 Eos # (Auto) 0.00 Baso # (Auto) 0.00 Sodium 123 L Potassium 5.3 H Chloride 91 L Carbon Dioxide 25 Anion Gap 7.0 BUN 61 H Creatinine 2.43 H Est Cr Clr Drug Dosing 14.6 Est GFR ( Amer) 19.9 Est GFR (Non-Af Amer) 17.2 BUN/Creatinine Ratio 24.9 H Glucose 296 H POC Glucose 323 H Calcium 8.5 Total Bilirubin 0.5 AST 12 L ALT 21 Alkaline Phosphatase 83 Total Protein 6.6 Albumin 3.0 L Globulin 3.6 Albumin/Globulin Ratio 0.8 L 04/27/18 04/27/18 07:23 11:57 WBC RBC Hgb Hct MCV MCH MCHC RDW Std Deviation RDW Coeff of Anthony Plt Count MPV Immature Gran % (Auto) Neut % (Auto) Lymph % (Auto) [place] % (Auto) Eos % (Auto) Baso % (Auto) Immature Gran # (Auto) Neut # (Auto) Lymph # (Auto) [place] # (Auto) Eos # (Auto) Baso # (Auto) Sodium Potassium Chloride Carbon Dioxide Anion Gap BUN Creatinine Est Cr Clr Drug Dosing Est GFR ( Amer) Est GFR (Non-Af Amer) BUN/Creatinine Ratio Glucose POC Glucose 298 H 282 H Calcium Total Bilirubin AST ALT Alkaline Phosphatase Total Protein Albumin Globulin Albumin/Globulin Ratio Medications Administered Current Inpatient Medications Acetaminophen (Tylenol) 500 mg PO Q6H PRN PRN Reason: Pain Stop: 05/24/18 16:37 Last Admin: 04/25/18 23:43 Dose: 500 mg Atorvastatin Calcium (Lipitor) 10 mg PO QAM [facility] Stop: 05/25/18 08:59 Last Admin: 04/27/18 08:24 Dose: 10 mg Benzonatate (Tessalon Perle) 100 mg PO TID [facility] Stop: 05/24/18 20:59 Last Admin: 04/27/18 12:45 Dose: 100 mg Bumetanide (Bumex) 1 mg PO QAM [facility] Stop: 05/25/18 08:59 Last Admin: 04/27/18 08:24 Dose: 1 mg Calcitriol (Racaltrol) 0.25 mcg PO Q2D@0900 [facility] Stop: 05/25/18 08:59 Last Admin: 04/27/18 08:25 Dose: 0.25 mcg Dextrose (Dextrose 50%) 25 - 50 ml IV UD PRN; Protocol PRN Reason: Hypoglycemia Protocol Stop: 05/24/18 16:37 Diclofenac Sodium (Voltaren 1% Top) 1 appln EXT PRN [facility] Stop: 05/25/18 18:29 Last Admin: 04/26/18 18:38 Dose: Not Given Digoxin (Lanoxin) 0.125 mg PO MoWeFr@1600 [facility] Stop: 05/25/18 15:59 Last Admin: 04/25/18 17:51 Dose: 0.125 mg Docusate Sodium (Colace) 100 mg PO BID [facility] Stop: 05/24/18 20:59 Last Admin: 04/27/18 08:24 Dose: 100 mg Escitalopram Oxalate (Lexapro) 5 mg PO QDL [facility] Stop: 05/27/18 11:29 Last Admin: 04/27/18 12:44 Dose: 5 mg Famotidine (Pepcid) 20 mg PO BID [facility] Stop: 05/27/18 11:29 Last Admin: 04/27/18 12:52 Dose: 20 mg Fish Oil ([place]-3 (Purified Fish Oil)) 2 gm PO BID [facility] Stop: 05/24/18 20:59 Last Admin: 04/27/18 08:25 Dose: 2 gm Fluticasone Propionate (Flonase) 2 sprays NA DAILY [facility] Stop: 05/25/18 08:59 Last Admin: 04/27/18 08:23 Dose: 2 sprays Glucagon (Glucagen) 1 mg SQ UD PRN; Protocol PRN Reason: Hypoglycemia Protocol Stop: 05/24/18 16:37 Glucose (Glucose 40%) 15 - 30 gm PO UD PRN; Protocol PRN Reason: Hypoglycemia Protocol Stop: 05/24/18 16:37 Glucose (Dex4 Glucose) 4 - 8 tabs PO UD PRN; Protocol PRN Reason: Hypoglycemia Protocol Stop: 05/24/18 16:37 Guaifenesin (Mucinex) 1,200 mg PO Q12 [facility] Stop: 05/24/18 20:59 Last Admin: 04/27/18 08:24 Dose: 1,200 mg Heparin Sodium (Porcine) (Heparin Sodium (Porcine)) 5,000 units SQ Q12 [facility] Stop: 05/24/18 20:59 Last Admin: 04/27/18 08:22 Dose: 5,000 units Ceftriaxone Sodium 1,000 mg/ (Dextrose) 50 mls @ 100 mls/hr IV DAILY@1700 [facility] Stop: 05/01/18 16:59 Last Infusion: 04/26/18 19:22 Dose: Infused Azithromycin 250 mg/ Dextrose 252.5 mls @ 125 mls/hr IV DAILY@1800 [facility] Stop: 05/01/18 17:59 Last Infusion: 04/26/18 21:47 Dose: Infused Methylprednisolone 40 mg/ (Syringe) 0.64 mls @ 1.5 mls/min IV Q12 [facility] Stop: 05/25/18 20:59 Last Admin: 04/27/18 08:22 Dose: 1.5 mls/min Insulin Aspart (Novolog Flexpen) 0 units SC ACHS [facility] Stop: 05/24/18 17:29 Last Admin: 04/27/18 12:45 Dose: 10 units Insulin Glargine (Lantus Solostar Pen) 30 units SQ QAM [facility] Stop: 05/25/18 08:59 Last Admin: 04/27/18 08:23 Dose: 30 units Levalbuterol HCl (Xopenex 0.63 Mg/3 Ml Neb) 0.63 mg INH TIDR [facility] Stop: 05/24/18 20:59 Last Admin: 04/27/18 07:31 Dose: 0.63 mg Levothyroxine Sodium (Synthroid) 75 mcg PO DAILYBB [facility] Stop: 05/25/18 06:29 Last Admin: 04/27/18 06:11 Dose: 75 mcg Loratadine (Claritin) 10 mg PO DAILY [facility] Stop: 05/25/18 08:59 Last Admin: 04/27/18 08:24 Dose: 10 mg Lorazepam (Ativan) 0.5 mg PO DAILY [facility] Stop: 05/25/18 08:59 Last Admin: 04/27/18 08:22 Dose: 0.5 mg Magnesium Oxide (Mag-Ox) 400 mg PO DAILY [facility] Stop: 05/25/18 08:59 Last Admin: 04/27/18 08:25 Dose: 400 mg Metoprolol Tartrate (Lopressor) 100 mg PO BID [facility] Stop: 05/24/18 20:59 Last Admin: 04/27/18 08:24 Dose: 100 mg Miscellaneous (Carbohydrates For Hypoglycemia) 15 - 30 gm PO UD PRN PRN Reason: Hypoglycemia Treatment Stop: 05/24/18 16:37 Olmesartan (Benicar) 5 mg PO HS [facility] Stop: 05/24/18 20:59 Last Admin: 04/26/18 21:20 Dose: 5 mg Ondansetron HCl (Zofran Odt) 4 mg PO Q4H PRN PRN Reason: Nausea And Vomiting Stop: 05/24/18 16:37 Last Admin: 04/27/18 09:30 Dose: 4 mg Ondansetron HCl (Zofran) 4 mg IV Q4H PRN PRN Reason: Nausea And Vomiting Stop: 05/24/18 16:37 Last Admin: 04/25/18 05:39 Dose: 4 mg Pantoprazole Sodium (Protonix) 40 mg PO DAILY [facility] Stop: 05/25/18 08:59 Last Admin: 04/27/18 08:24 Dose: 40 mg Tolterodine Tartrate (Detrol) 2 mg PO BID [facility] Stop: 05/24/18 20:59 Last Admin: 04/27/18 08:24 Dose: 2 mg Resident Activity Tracking Resident Involvement: Resident Care Provided Care Provided: Adult Hospital Medicine
[2018-04-27] MEDS: cefTRIAXone SODIUM 1,000 MG in DEXTROSE 5% 50 ML IV SCH (18:06)
[2018-04-27] MEDS: DICLOFENAC SOD 1% GEL 100 GM TUBE EXT SCH (18:09)
[2018-04-27] MEDS: AZITHROMYCIN 250 MG in DEXTROSE 5% 250 ML IV SCH (18:12)
[2018-04-27] MEDS: ACETAMINOPHEN 500 MG TAB PO PRN (20:14)
[2018-04-27] MEDS: OLMESARTAN MEDOXOMIL 5 MG TAB PO SCH (20:16)
[2018-04-28] MEDS: INSULIN ASPART 100 UNITS/ML 3 ML PEN SC SCH ×5 (00:22→21:48)
[2018-04-28] MEDS: LEVOTHYROXINE SODIUM 75 MCG TABLET PO SCH (06:23)
[2018-04-28] MEDS: LEVALBUTEROL HCL 0.63 MG/3 ML NEB INH SCH ×3 (07:11→19:17)
[2018-04-28 07:14] LABS: Hematocrit (blood only) 31.4 % (37-47); Immature Granulocytes # (auto) 0.02 K/uL (0.00-0.02); Immature Granulocytes % (auto) 0.2 %; Lymphocytes # (auto) 1.09 K/uL (1.2-3.4); Mean Corpuscular Hgb Conc 31.8 g/dL (32-36); Mean Corpuscular Volume 83.3 fL (80-100); Mean Platelet Volume 8.4 fL (7.4-10.4); Monocytes # (auto) 0.51 K/uL (0.11-0.59); Monocytes % (auto) 4.7 %; Neutrophils # (auto) 9.28 K/uL (1.4-6.5); Neutrophils % (auto) 85.1 %; Platelet Count 252 K/uL (130-400); RDW Coefficient of Variation 17.1 % (11.5-14.5); RDW Standard Deviation 51.9 fL (36.4-46.3); Red Blood Count 3.77 M/uL (4.2-5.4)
[2018-04-28 07:42] LABS: Albumin Level 2.9 gm/dl (3.4-5.0); BUN Creatinine Ratio 27.7 (10-20); Calcium 8.4 mg/dl (8.5-10.1); Est GFR (African American) 20.4; Est GFR (Non-African American) 17.6; Potassium 5.3 mmol/L (3.5-5.1)
[2018-04-28 07:45] LABS: Albumin Globulin Ratio 0.8 (0.9-2); Bilirubin,Total 0.5 mg/dl (0.2-1); Globulin 3.7 gm/dl (2.5-4.0); Total Protein 6.6 gm/dl (6.4-8.2)
[2018-04-28] MEDS: LORazepam 0.5 MG TAB PO SCH (08:45)
[2018-04-28] MEDS: METOPROLOL TARTRATE 100 MG TAB PO SCH ×2 (08:45→21:16)
[2018-04-28] MEDS: methylPREDNISolone 40 MG in SYRINGE 0 ML IV SCH ×2 (08:45→21:19)
[2018-04-28] MEDS: BENZONATATE 100 MG CAPSULE PO SCH ×3 (08:46→21:18)
[2018-04-28] MEDS: FLUTICASONE PROPIONATE NA SPR 16 GM BTL SCH (08:46)
[2018-04-28] MEDS: HEPARIN SOD 5,000 UNIT/0.5 ML VIAL SQ SCH ×2 (08:46→21:48)
[2018-04-28] MEDS: FAMOTIDINE 20 MG TAB PO SCH ×2 (08:46→21:19)
[2018-04-28] MEDS: guaiFENesin 600 MG TABCR PO SCH ×2 (08:46→21:14)
[2018-04-28] MEDS: LORATADINE 10 MG TAB PO SCH (08:47)
[2018-04-28] MEDS: MAGNESIUM OXIDE 400 MG TAB PO SCH (08:47)
[2018-04-28] MEDS: DOCUSATE SODIUM 100 MG CAP PO SCH ×2 (08:47→21:14)
[2018-04-28] MEDS: BUMETANIDE 1 MG TAB PO SCH (08:47)
[2018-04-28] MEDS: TOLTERODINE TARTRATE 2 MG TAB PO SCH ×2 (08:47→21:14)
[2018-04-28] MEDS: PANTOprazole 40 MG TAB PO SCH (08:47)
[2018-04-28] MEDS: OMEGA-3 (PURIFIED FISH OIL) 1 GM CAP PO SCH ×2 (08:47→21:17)
[2018-04-28] MEDS: ATORVASTATIN 10 MG TAB PO SCH (08:47)
[2018-04-28] MEDS: INSULIN GLARGINE SOLOSTAR 100 UNITS/ML 3 ML PEN SQ SCH (08:48)
--- NOTE | 2018-04-28 11:19 | Discharge Summary ---
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 Patient notes that she had a right arm fistula placed last Saturday by Dr. Anderson and since then feels much worse. Her symptoms include generalized malaise, chronic fatigue, poor appetite yet good fluid intake, hair loss, nausea and vomiting daily for the past 3 months, overall weight loss with new onset of weight gain of 4 pounds overnight. Patient has a dry weight of 137 but was up to 141 today. She reports having chronic aches and pains which she believes is arthritis. Patient has had worsening shortness of breath which is most concerning to her, only able to take about 15 steps before becoming winded, and is coughing, with productive yellow to green sputum in the past 3 days as well. She also notes she is having chest pain which is worse with deep breaths and with cough, and notes she had her pacemaker placed about [address] Guido, cardiology, who she follows with on a regular basis. She has been able to take all of her medications. Patient lives in the [facility] , and is unaware of any sick patients she was exposed to. She typically ambulates with a walker, and does not require supplemental O2. Admission Exam Per Admitting Provider General: awake, alert, no apparent distress, + generalized pallor Head: Normocephalic, atraumatic ENT: PERRL, EOMI, no pharyngeal exudate or erythema, mucous membranes moist Chest: Clear to auscultation in left villalobos, diminished breath sounds in the right lower lobe, on one L via NC, no wheezes rales or rhonchi Cardiac: Regular rate and rhythm, PAULY grade II/, no JVD, normal peripheral pulses, good capillary refill Abdominal: NABS x 4 quadrants, soft, nontender to palpation, no rebound, guarding or tenderness, + indwelling catheter with clear yellow urine. Extremities: RUE AVF site with steri strips, no surrounding erythema, nontender to palpation of surrounding region, 2+ pitting BLE edema, no erythema, calfs nontender to palpation Psych: Normal mood and affect Neuro: AAO x 3, no motor deficits, speech is clear, no peripheral sensory deficits Principal Diagnosis CHF and COPD exacerbation Discharge Exam General: Alert, oriented. No acute distress HEENT: NC/AT, PERRL, EOMI, oropharynx moist. Chest: + tender to palpation on left. CV: RRR, Normal s1, s2. No murmurs appreciated Resp: Breath sounds decreased bilaterally, no increased effort of breathing. mild crackles in bilateral bases. Extremities: + edema in upper thighs, compression socks on lower legs. Discharge Data Allergies Allergy/AdvReac Type Severity Reaction Status Date / Time fenofibrate Allergy Intermediate rash Verified 04/24/18 13:32 amoxicillin Allergy Unknown UNKNOWN Verified 04/24/18 13:32 calcium carbonate Allergy Unknown . Verified 04/24/18 13:32 Cipro Allergy Unknown . Verified 10/30/17 13:10 ciprofloxacin Allergy Unknown . Verified 04/24/18 13:32 diphenhydramine Allergy Unknown . Verified 04/24/18 13:32 fexofenadine Allergy Unknown UNKNOWN Verified 04/24/18 13:32 irbesartan Allergy Unknown UNKNOWN Verified 04/24/18 13:32 lidocaine Allergy Unknown . Verified 04/24/18 13:32 niacin Allergy Unknown RASH Verified 04/24/18 13:32 nystatin Allergy Unknown . Verified 04/24/18 13:32 Penicillins Allergy Unknown UNKNOWN Verified 04/24/18 13:32 Sulfa (Sulfonamide Allergy Unknown UNKNOWN Verified 04/24/18 13:32 Antibiotics) flumazenil AdvReac Intermediate DELIRIUM Verified 04/24/18 13:32 tomato AdvReac Unknown GI SYMPTOMS Verified 04/24/18 13:32 Consultations 04/24/18 14:07 ED Decision to Admit Stat 04/24/18 16:38 Consult Case Management - Discharge Planning Routine Ordered Studies 04/28/18 10:07 CT chest wo con Urgent Hospital Course (1) SOB (shortness of breath): 87yo female with complicated past medical history hospitalized with possible pneumonia, and CHF and COPD exacerbation. 1) SOB --CT done 04/28 showed possible PE vs. pneumonia with pleural effusion. VQ mismatch testing done instead of CT angio since pt has CKD, shows low likelihood of PE. Dx of pneumonia more likely. - Flu swab neg, afebrile, WBC not elevated -Treated with Mucinex, Tesmackenzie Martin, sputum culture, supplemental oxygen as needed, discharged on RA -ceftriaxone and azithromycin IV. Discharged with oral cefdinir and azithromycin. Prednisone taper. -Chest x-ray reviewed without acute findings -increasing shortness of breath which may be secondary to increased fluid retention as with increased edema in BLE's. - Bumex 1 mg PO everyday with additional IV doses as needed. 2) Chest pain -trops negative -EKG reviewed, without acute findings -Diclofenac topical prn for pain over incision site -Patient had pacemaker placed approximately [address] Guido and follows with him routinely-she is tender over the incision site on exam. -Consider cardiology consult if no improvement, or if worsening symptoms. 3) CHF -Chronic, systolic and diastolic -Last EF was 40-45% checked in summer 2017 -On Bumex, consider giving extra doses as needed for SOB -Monitor a.m. PRP, daily weights, strict I's/ O's - Will repeat ECHO -placed on 1500 ml fluid restriction 4) Atrial fibrillation -Permanent, rate controlled on admission, continue digoxin 125 mcg MWF, metoprolol tartrate 100 mg BID -Patient is not on anticoagulation due to history of excessive epistaxis 5) Hypertension -Continue metoprolol tartrate, digoxin, olmesartan and bumetanide 6) S/P quintuple vessel bypass: -Occurred in 2003 -Followed by PCI and RCA stent in 2008. Last cath was in June 2010. Initial pacemaker was placed in 2008. On 03/13/18 had generator replaced per outpt record review. 7) COPD - Has noted chronic dyspnea and chronic dry morning cough however this is now productive with yellow/green tinged sputum -sputum cx : Light normal patricia present, final report to follow -abx rocephin/zithromax for PNA coverage -cont IV solumedrol. Transitioned to PO prednisone 40mg -Check MRSA swab - Flu negative - Continue inhalers as RN MED SURG meds. - Follows with IRINEO Hall as an outpatient. 8) DM - Continue Lantus 30 units QAM. Added 10 units today. Adjusted ISS protocol for tighter control. Will cont monitor BSG and re-assess and change as needed. - ISS with Accu-Cheks ordered -Diabetic diet -Last A1c was 8.2 checked on 04/15/18, no need to repeat 9) Chronic kidney disease Stage IV -Patient had RUE AVF placed ~[address] Anderson, site has Steri-Strips intact, no signs of surrounding erythema, edema or tenderness with palpation or surrounding location. - Monitor Cr. closely increased dose of Bumex as above, am PRP - Cr.= 2.38, appears to have baseline =2.0-2.3 - Follows with Dr. Urisa as outpatient. - Continue HH diet with 2 g sodium restriction - Chronic indwelling saenz will need changed within next week. Checking UA - urine clear yellow in bag, tubing appears clouded. 10) GERD - Cont PPI 11) Depression - Stable, continue Lexapro 5 mg daily 12) UTI -urine cx shows E. Coli -on abx currently 13) Nausea -likely 2/2 gastritis 2/2 steroids -added famotidine 20 mg PO BID DNR DVT prophylaxis: teds, scds, heparin subq Dispo: [facility] has a bed when ready for d/c Total Time Total Time Spent Total Time Spent (In Minutes): <30 Total Time Includes: Examination of the Patient, Discharge Planning and Medication Reconciliation Discharge Plan Discharge Items Patient Disposition: Transfer Acute Care Hospital Reason For Visit: SOB,DYSPNEA,CHEST PAIN Discharge Diagnosis: CHF and copd exacerbation Discharge Goals: Decrease discomfort, Improve disease control, Improve function and Therapeutic intervention Activity: Resume your previous activity Non-emergency contact: Primary Care Provider Call non-emergency contact if: you have any medication questions and your symptoms worsen Diet: Carb Consistent or DM2 and Heart Healthy Addtl Provider Instructions: You were admitted to the hospital for trouble breathing likely secondary to your diagnosis of congestive heart failure and COPD. There was also some concern about a developing pneumonia for which you were treated. 1. You received a water pill to help with your breathing and alleviate the symptoms related to your congestive heart failure. Your fluid intake was also restricted. 2. You were treated with IV steroids to help your COPD exacerbation and given a medication to protect your gut from bleeding as a result. 3. You were treated with antibiotics for a possible pneumonia. You are being discharged with steroids to continue taking by mouth for a few more days. You are also being discharged with oral antibiotics. Please followup with your primary care provider in the next few days. Please go to the nearest emergency room if you develop chest pain, shortness of breath, nausea/vomitting or palpitations. Prescriptions: New azithromycin 250 mg tablet See Label Instructions .ROUTE .COMPLEX Qty: 6 RF: 0 cefdinir 300 mg capsule 300 mg PO BID 5 Days Qty: 10 RF: 0 prednisone 10 mg tablet 10 mg PO DAILY Qty: 14 RF: 0 Continue atorvastatin 10 mg tablet 10 mg PO QAM RF: 0 levalbuterol HCl 0.63 mg/3 mL solution for nebulization 0.63 mg Inhalation TID RF: 0 metoprolol tartrate 100 mg tablet 100 mg PO BID RF: 0 acetaminophen [Tylenol Extra Strength] 500 mg Tablet 500 mg PO Q6H PRN (Reason: Pain) RF: 0 levothyroxine 75 mcg tablet 75 mcg PO QAM RF: 0 tolterodine 2 mg tablet 2 mg PO BID RF: 0 lorazepam 0.5 mg tablet 0.5 mg PO DAILY RF: 0 ascorbic acid (vitamin C) [Vitamin C] 500 mg Tablet 500 mg PO QAM RF: 0 benzonatate 100 mg capsule 100 mg PO TID RF: 0 biotin 10,000 mcg Capsule 10,000 mcg PO QAM RF: 0 lansoprazole 30 mg capsule,delayed release(DR/EC) 30 mg PO QAM RF: 0 docusate sodium [Colace] 100 mg Capsule 100 mg PO BID RF: 0 bumetanide 1 mg tablet 1 mg PO QAM RF: 0 digoxin 125 mcg tablet 125 mcg PO 3XWK RF: 0 ondansetron 4 mg tablet,disintegrating 4 mg PO Q4H PRN (Reason: Nausea And Vomiting) RF: 0 calcitriol 0.25 mcg capsule 0.25 mg PO Q2D RF: 0 cranberry 500 mg Capsule 1,000 mg PO BID RF: 0 cholecalciferol (vitamin D3) [Vitamin D3] 1,000 unit Capsule 1,000 unit PO QAM RF: 0 olmesartan 5 mg tablet 5 mg PO HS RF: 0 escitalopram oxalate 5 mg tablet 5 mg PO QDL RF: 0 omega-3 acid ethyl esters 1 gram capsule 2,000 mg PO BID RF: 0 insulin glargine 100 unit/mL (3 mL) insulin pen 30 unit subcut QAM RF: 0 loratadine 10 mg Capsule 10 mg PO QAM RF: 0 magnesium oxide 400 mg Capsule 400 mg PO QAM RF: 0 fluticasone [Flonase Allergy Relief] 50 mcg/actuation Alba,Suspension 2 spray INTRANASAL DAILY RF: 0 Discontinued nitrofurantoin macrocrystal 50 mg capsule 50 mg PO HS RF: 0 nitroglycerin [Nitrostat] 0.4 mg Tablet, Sublingual 0.4 mg Sublingual UD RF: 0 Stand-Alone Forms: My [facility] Discharge Orders: Discharge Order (Routine); Ordered 04/29/18 Ordered By: Jarrod Zamora Admission Data Admit Date/Time: 04/24/18 14:50 Attending Provider: Jarrod aZmora Admit Provider: Bijal Campbell Primary Care Provider: Deion Downs Other Providers: Bijal Campbell ; Ferny Luevano Service: Telemetry Other Interventions: Discharge Summary Assessment (RN) Last Done: 04/29/18 15:52 Supervising Physician Co-Signing Physician Notes I personally examined the patient and verified all merchant points of history and exam, discussed case, and agree with decision making with Dr Aguayo. Feeling up to going to [facility], breathing better overall. Vitals noted, in general she is fatigued but no distress. HEENT normal cephalic atraumatic mucous membranes are moist. Breathing is unlabored no accessory muscle use good effort. Abdomen is soft nondistended nontender no guarding no rebound no masses no organomegaly. Skin shows no rashes no pallor or icterus. Pneumoniathis appears to be stable enough for transfer to [facility], finish out a course of antibiotics Taper steroids, continue supportive care Deconditioning/weaknessPT/OT at rehab. Abdominal pain/indigestionappears to be nonspecific, she and I both agree its likely a mixed combination of being sick, the antibiotics, constipation. Stable for discharge to rehab Resident Activity Tracking Resident Involvement: Resident Care Provided Care Provided: Adult Hospital Medicine
--- NOTE | 2018-04-28 13:08 | CT Scan Report ---
CT SCAN OF THE CHEST WITHOUT IV CONTRAST CLINICAL HISTORY: Dyspnea. COMPARISON STUDY: Chest x-ray dated 04/24/2018. Chest CT scans dated 11/21/2016 and 12/08/2015. TECHNIQUE: CT scan of the thorax was performed from the thoracic inlet to the upper abdomen. Images are reviewed in the axial, sagittal, and coronal planes. IV contrast was not administered for this ex amination as per the referring clinician. A dose lowering technique was utilized adhering to the marine nciples of MURALI. CT DOSE: 268.66 mGy.cm FINDINGS: Thyroid: Imaged portions of the thyroid gland are normal in size and attenuation. Thoracic aorta: There is advanced atherosclerotic calcification of the thoracic aorta. There is mild ectasia of the descending thoracic aorta which measures up to 3.4 cm diameter. This is similar to marine or studies. The arch demonstrates standard 3-vessel anatomy. Heart: The patient is status post midline sternotomy. A 2-lead cardiac pacemaker is present in the le ft chest wall. The heart is enlarged and without pericardial effusion. The coronary arteries and mitr al annulus are densely calcified. The pulmonary trunk is dilated, measuring 4.4 cm in transverse diam eter. This indicates pulmonary artery hypertension. Lungs and pleural spaces: Evaluation of the lung parenchyma is degraded by motion artifact. There is a trace right pleural effusion, with a focus of wedge-shaped subpleural consolidative change at the r ight lung base. This is best seen on image #20 and 38, and is new from 11/21/2016. There are numerous (greater than 20) subcentimeter pulmonary nodules scattered throughout both lungs. The largest measur es 7 mm seen in the left lower lobe on image #221. The trachea and central airways are clear. Mediastinum: There is mediastinal lymphadenopathy. A precarinal node measures up to 1.9 cm in short a xis. Paratracheal nodes measure up to 1.4 cm in short axis.. Margaret: Not well assessed without IV contrast. Axillae: There is no axillary lymphadenopathy. Upper abdomen: Cholecystectomy clips are noted. There is asymmetric cortical atrophy of the left kidn ey as compared the right. Skeletal structures: The skeletal structures are osteopenic. Degenerative change and kyphoscoliosis a re noted in the thoracic spine. Advanced arthritic change is noted in the shoulders. No lytic or katiuska tic bony lesions are seen. IMPRESSION: 1. There is a trace right pleural effusion, with associated subpleural wedge-shaped opacity at the ri t lung base. This finding is new from 11/21/2016. This is pathologically indeterminant, but the appe arance is worrisome for pulmonary infarct. Consider correlation with a CT angiogram of the chest to a ssess for pulmonary embolus. 2. Cardiomegaly and cardiac pacemaker with evidence of pulmonary artery hypertension. There is no CT evidence of congestive failure. 3. No airspace consolidation is identified typical for pneumonia. 4. Mediastinal lymphadenopathy is of indeterminant significance and unchanged from previous. 5. There are numerous pulmonary nodules measuring up to 7 mm. These are pathologically indeterminant, but not significantly changed dating back to 2016. 6. Additional findings as above. Electronically signed by: Sumit Schmid M.D. 04/28/2018 1:07 PM
[2018-04-28] MEDS: ESCITALOPRAM OXALATE ORAL SOLN 5 MG/5 ML PO SCH (13:25)
--- NOTE | 2018-04-28 15:00 | Family Medicine Progress Note ---
Date of Service April 28, 2018 Assessment & Plan (1) SOB (shortness of breath): 87yo female with complicated past medical history hospitalized with pneumonia now confirmed on CT, and CHF and COPD exacerbation. 1) SOB -CT done today 04/28 showed possible PE vs. pneumonia with pleural effusion. VQ mismatch testing done instead of CT angio since pt has CKD, shows low likelihood of PE. Dx of pneumonia more likely. -continue IV ceftriaxone and azithromycin. Consider po switch in AM. - Flu swab neg, afebrile, WBC not elevated -Treated with Mucinex, Tessalon Perles, sputum culture, supplemental oxygen as needed, on RA -Chest x-ray reviewed without acute findings -increasing shortness of breath which may be secondary to increased fluid retention as with increased edema in BLE's. - Bumex 1 mg PO everyday with additional IV doses as needed. 2) Chest pain -trops negative -EKG reviewed, without acute findings -Diclofenac topical prn for pain over incision site -Patient had pacemaker placed approximately [address] Guido and follows with him routinely-she is tender over the incision site on exam. -Consider cardiology consult if no improvement, or if worsening symptoms. 3) CHF -Chronic, systolic and diastolic -Last EF was 40-45% checked in summer 2017 -On Bumex, consider giving extra doses as needed for SOB -Monitor a.m. PRP, daily weights, strict I's/ O's - Will repeat ECHO -placed on 1500 ml fluid restriction 4) Atrial fibrillation -Permanent, rate controlled on admission, continue digoxin 125 mcg MWF, metoprolol tartrate 100 mg BID -Patient is not on anticoagulation due to history of excessive epistaxis 5) Hypertension -Continue metoprolol tartrate, digoxin, olmesartan and bumetanide 6) S/P quintuple vessel bypass: -Occurred in 2003 -Followed by PCI and RCA stent in 2008. Last cath was in June 2010. Initial pacemaker was placed in 2008. On 03/13/18 had generator replaced per outpt record review. 7) COPD - Has noted chronic dyspnea and chronic dry morning cough however this is now productive with yellow/green tinged sputum -sputum cx : Light normal patricia present, final report to follow -abx rocephin/zithromax for PNA coverage -cont IV solumedrol. Transitioned to PO prednisone 40mg -Check MRSA swab - Flu negative - Continue inhalers as [employer] meds. - Follows with Aneudy Muñoz [facility] as an outpatient. 8) DM - Continue Lantus 30 units QAM. Added 10 units today. Adjusted ISS protocol for tighter control. Will cont monitor BSG and re-assess and change as needed. - ISS with Accu-Cheks ordered -Diabetic diet -Last A1c was 8.2 checked on 04/15/18, no need to repeat 9) Chronic kidney disease Stage IV -Patient had RUE AVF placed ~[address] Anderson, site has Steri-Strips intact, no signs of surrounding erythema, edema or tenderness with palpation or surrounding location. - Monitor Cr. closely increased dose of Bumex as above, am PRP - Cr.= 2.38, appears to have baseline =2.0-2.3 - Follows with Dr. Urias as outpatient. - Continue HH diet with 2 g sodium restriction - Chronic indwelling saenz will need changed within next week. Checking UA - urine clear yellow in bag, tubing appears clouded. 10) GERD - Cont PPI 11) Depression - Stable, continue Lexapro 5 mg daily 12) UTI -urine cx shows E. Coli -on abx currently 13) Nausea -likely 2/2 gastritis 2/2 steroids -added famotidine 20 mg PO BID DNR DVT prophylaxis: teds, scds, heparin subq Dispo: [facility] has a bed when ready for d/c Supervising Physician Co-Signing Physician Notes I personally examined the patient and verified all merchant points of history and exam, discussed case, and agree with decision making with Dr Aguayo. Feeling short of breath still. She is on room air, she would like to get to [facility], but she would like to be breathing a little bit better first. Vitals noted, in general she is fatigued appearing but otherwise in no atraumatic mucous membranes are moist. Breathing is unlabored on room air. Skin shows no rashes no pallor or icterus Shortness of breathdyspnea and lung exam seemed a bit disproportionate to overseeing on x-ray. CT of the chest was undertaken to look at the lung parenchyma in more detail. Reviewed by both radiology and myself, there was a small wedged area at her right lower lung field that did appear either consistent with a small infiltrate or downstream effect of pulmonary embolus with a small infarction. Given her risks PE definitely needed to be ruled out, given her creatinine clearance a VQ scan was undertaken later in the day unfortunately low probability. Continue antibiotics for her pneumonia. Deconditioning/weaknesshopefully to [facility] tomorrow DVT prophylaxisheparin subcu Subjective Pt states she still feels SOB. Chest pain has improved with use of the topical cream. No N/V, fevers, chills. Review of Systems All systems reviewed & are unremarkable except as noted in HPI & below Physical Exam 2 Vital Signs (Past 24 Hours): Last Vital Signs Temp 36.9 C 04/28/18 11:30 Pulse 71 04/28/18 13:21 Resp 18 04/28/18 13:21 BP 160/68 H 04/28/18 11:30 Pulse Ox 96 04/28/18 13:21 General: Alert, oriented. No acute distress HEENT: NC/AT, PERRL, EOMI, oropharynx moist. Chest: minimally tender to palpation on left. CV: RRR, Normal s1, s2. No murmurs appreciated Resp: Breath sounds decreased bilaterally, no increased effort of breathing. ++ crackles bilateral bases Extremities: + edema in upper thighs, compression socks on lower legs. Results & Data Laboratory Results Laboratory Results - last 24 hr 04/27/18 04/27/18 04/28/18 16:37 20:39 00:11 WBC RBC Hgb Hct MCV MCH MCHC RDW Std Deviation RDW Coeff of Anthony Plt Count MPV Immature Gran % (Auto) Neut % (Auto) Lymph % (Auto) Rusk % (Auto) Eos % (Auto) Baso % (Auto) Immature Gran # (Auto) Neut # (Auto) Lymph # (Auto) Rusk # (Auto) Eos # (Auto) Baso # (Auto) APTT PTT Ratio Sodium Potassium Chloride Carbon Dioxide Anion Gap BUN Creatinine Est Cr Clr Drug Dosing Est GFR ( Amer) Est GFR (Non-Af Amer) BUN/Creatinine Ratio Glucose POC Glucose 241 H 347 H 257 H Calcium Total Bilirubin AST ALT Alkaline Phosphatase Total Protein Albumin Globulin Albumin/Globulin Ratio 04/28/18 04/28/18 04/28/18 07:04 07:04 07:04 WBC 10.90 H RBC 3.77 L Hgb 10.0 L Hct 31.4 L MCV 83.3 MCH 26.5 MCHC 31.8 L RDW Std Deviation 51.9 H RDW Coeff of Anthony 17.1 H Plt Count 252 MPV 8.4 Immature Gran % (Auto) 0.2 Neut % (Auto) 85.1 Lymph % (Auto) 10.0 Rusk % (Auto) 4.7 Eos % (Auto) 0.0 Baso % (Auto) 0.0 Immature Gran # (Auto) 0.02 Neut # (Auto) 9.28 H Lymph # (Auto) 1.09 L Rusk # (Auto) 0.51 Eos # (Auto) 0.00 Baso # (Auto) 0.00 APTT 25.0 PTT Ratio 1.0 Sodium 126 L Potassium 5.3 H Chloride 94 L Carbon Dioxide 25 Anion Gap 7.0 BUN 66 H Creatinine 2.38 H Est Cr Clr Drug Dosing 15.0 Est GFR ( Amer) 20.4 Est GFR (Non-Af Amer) 17.6 BUN/Creatinine Ratio 27.7 H Glucose 192 H POC Glucose Calcium 8.4 L Total Bilirubin 0.5 AST 19 ALT 35 Alkaline Phosphatase 82 Total Protein 6.6 Albumin 2.9 L Globulin 3.7 Albumin/Globulin Ratio 0.8 L 04/28/18 04/28/18 07:39 11:31 WBC RBC Hgb Hct MCV MCH MCHC RDW Std Deviation RDW Coeff of Anthony Plt Count MPV Immature Gran % (Auto) Neut % (Auto) Lymph % (Auto) R[place] % (Auto) Eos % (Auto) Baso % (Auto) Immature Gran # (Auto) Neut # (Auto) Lymph # (Auto) Rusk # (Auto) Eos # (Auto) Baso # (Auto) APTT PTT Ratio Sodium Potassium Chloride Carbon Dioxide Anion Gap BUN Creatinine Est Cr Clr Drug Dosing Est GFR ( Amer) Est GFR (Non-Af Amer) BUN/Creatinine Ratio Glucose POC Glucose 194 H 251 H Calcium Total Bilirubin AST ALT Alkaline Phosphatase Total Protein Albumin Globulin Albumin/Globulin Ratio Medications Administered Home Medications acetaminophen [Tylenol Extra Strength] 500 mg PO Q6H PRN 04/24/18 [History Confirmed 04/24/18] ascorbic acid (vitamin C) [Vitamin C] 500 mg PO QAM 04/24/18 [History Confirmed 04/24/18] atorvastatin 10 mg PO QAM 04/24/18 [History Confirmed 04/24/18] benzonatate 100 mg PO TID 04/24/18 [History Confirmed 04/24/18] biotin 10,000 mcg PO QAM 04/24/18 [History Confirmed 04/24/18] bumetanide 1 mg PO QAM 04/24/18 [History Confirmed 04/24/18] calcitriol 0.25 mg PO Q2D 04/24/18 [History Confirmed 04/24/18] cholecalciferol (vitamin D3) [Vitamin D3] 1,000 unit PO QAM 04/24/18 [History Confirmed 04/24/18] cranberry 1,000 mg PO BID 04/24/18 [History Confirmed 04/24/18] digoxin 125 mcg PO 3XWK 04/24/18 [History Confirmed 04/24/18] docusate sodium [Colace] 100 mg PO BID 04/24/18 [History Confirmed 04/24/18] escitalopram oxalate 5 mg PO QDL 04/24/18 [History Confirmed 04/24/18] fluticasone [Flonase Allergy Relief] 2 spray INTRANASAL DAILY 04/24/18 [History Confirmed 04/24/18] insulin glargine [Basaglar KwikPen U-100 Insulin] 30 unit SUBCUT QAM 04/24/18 [ History Confirmed 04/24/18] lansoprazole 30 mg PO QAM 04/24/18 [History Confirmed 04/24/18] levalbuterol HCl 0.63 mg INHALATION TID 04/24/18 [History Confirmed 04/24/18] levothyroxine 75 mcg PO QAM 04/24/18 [History Confirmed 04/24/18] loratadine 10 mg PO QAM 04/24/18 [History Confirmed 04/24/18] lorazepam 0.5 mg PO DAILY 04/24/18 [History Confirmed 04/24/18] magnesium oxide 400 mg PO QAM 04/24/18 [History Confirmed 04/24/18] metoprolol tartrate 100 mg PO BID 04/24/18 [History Confirmed 04/24/18] nitrofurantoin macrocrystal 50 mg PO HS 04/24/18 [History Confirmed 04/24/18] nitroglycerin [Nitrostat] 0.4 mg SUBLINGUAL UD 04/24/18 [History Confirmed 04/24] olmesartan 5 mg PO HS 04/24/18 [History Confirmed 04/24/18] omega-3 acid ethyl esters 2,000 mg PO BID 04/24/18 [History Confirmed 04/24/18] ondansetron 4 mg PO Q4H PRN 04/24/18 [History Confirmed 04/24/18] tolterodine 2 mg PO BID 04/24/18 [History Confirmed 04/24/18] Active Medications Acetaminophen (Tylenol) 500 mg PO Q6H PRN PRN Reason: Pain Stop: 05/24/18 16:37 Last Admin: 04/27/18 20:14 Dose: 500 mg Atorvastatin Calcium (Lipitor) 10 mg PO QAM [facility] Stop: 05/25/18 08:59 Last Admin: 04/28/18 08:47 Dose: 10 mg Benzonatate (Tessalon Perle) 100 mg PO TID [facility] Stop: 05/24/18 20:59 Last Admin: 04/28/18 13:25 Dose: 100 mg Bumetanide (Bumex) 1 mg PO QAM [facility] Stop: 05/25/18 08:59 Last Admin: 04/28/18 08:47 Dose: 1 mg Calcitriol (Racaltrol) 0.25 mcg PO Q2D@0900 [facility] Stop: 05/25/18 08:59 Last Admin: 04/27/18 08:25 Dose: 0.25 mcg Dextrose (Dextrose 50%) 25 - 50 ml IV UD PRN; Protocol PRN Reason: Hypoglycemia Protocol Stop: 05/24/18 16:37 Diclofenac Sodium (Voltaren 1% Top) 1 appln EXT PRN [facility] Stop: 05/25/18 18:29 Last Admin: 04/27/18 18:09 Dose: 1 appln Digoxin (Lanoxin) 0.125 mg PO MoWeFr@1600 [facility] Stop: 05/25/18 15:59 Last Admin: 04/25/18 17:51 Dose: 0.125 mg Docusate Sodium (Colace) 100 mg PO BID [facility] Stop: 05/24/18 20:59 Last Admin: 04/28/18 08:47 Dose: 100 mg Escitalopram Oxalate (Lexapro) 5 mg PO QDL [facility] Stop: 05/27/18 11:29 Last Admin: 04/28/18 13:25 Dose: 5 mg Famotidine (Pepcid) 20 mg PO BID [facility] Stop: 05/27/18 11:29 Last Admin: 04/28/18 08:46 Dose: 20 mg Fish Oil (Fleming-3 (Purified Fish Oil)) 2 gm PO BID [facility] Stop: 05/24/18 20:59 Last Admin: 04/28/18 08:47 Dose: 2 gm Fluticasone Propionate (Flonase) 2 sprays NA DAILY [facility] Stop: 05/25/18 08:59 Last Admin: 04/28/18 08:46 Dose: 2 sprays Glucagon (Glucagen) 1 mg SQ UD PRN; Protocol PRN Reason: Hypoglycemia Protocol Stop: 05/24/18 16:37 Glucose (Glucose 40%) 15 - 30 gm PO UD PRN; Protocol PRN Reason: Hypoglycemia Protocol Stop: 05/24/18 16:37 Glucose (Dex4 Glucose) 4 - 8 tabs PO UD PRN; Protocol PRN Reason: Hypoglycemia Protocol Stop: 05/24/18 16:37 Guaifenesin (Mucinex) 1,200 mg PO Q12 [facility] Stop: 05/24/18 20:59 Last Admin: 04/28/18 08:46 Dose: 1,200 mg Heparin Sodium (Porcine) (Heparin Sodium (Porcine)) 5,000 units SQ Q12 [facility] Stop: 05/24/18 20:59 Last Admin: 04/28/18 08:46 Dose: 5,000 units Ceftriaxone Sodium 1,000 mg/ (Dextrose) 50 mls @ 100 mls/hr IV DAILY@1700 [facility] Stop: 05/01/18 16:59 Last Infusion: 04/27/18 18:40 Dose: Infused Azithromycin 250 mg/ Dextrose 252.5 mls @ 125 mls/hr IV DAILY@1800 [facility] Stop: 05/01/18 17:59 Last Infusion: 04/27/18 21:30 Dose: Infused Methylprednisolone 40 mg/ (Syringe) 0.64 mls @ 1.5 mls/min IV Q12 [facility] Stop: 05/25/18 20:59 Last Admin: 04/28/18 08:45 Dose: 1.5 mls/min Insulin Aspart (Novolog Flexpen) 0 units SC ACHS [facility] Stop: 05/24/18 17:29 Last Admin: 04/28/18 13:25 Dose: 8 units Insulin Glargine (Lantus Solostar Pen) 30 units SQ QAM [facility] Stop: 05/25/18 08:59 Last Admin: 04/28/18 08:48 Dose: 30 units Levalbuterol HCl (Xopenex 0.63 Mg/3 Ml Neb) 0.63 mg INH TIDR [facility] Stop: 05/24/18 20:59 Last Admin: 04/28/18 13:18 Dose: 0.63 mg Levothyroxine Sodium (Synthroid) 75 mcg PO DAILYBB [facility] Stop: 05/25/18 06:29 Last Admin: 04/28/18 06:23 Dose: 75 mcg Loratadine (Claritin) 10 mg PO DAILY [facility] Stop: 05/25/18 08:59 Last Admin: 04/28/18 08:47 Dose: 10 mg Lorazepam (Ativan) 0.5 mg PO DAILY [facility] Stop: 05/25/18 08:59 Last Admin: 04/28/18 08:45 Dose: 0.5 mg Magnesium Oxide (Mag-Ox) 400 mg PO DAILY [facility] Stop: 05/25/18 08:59 Last Admin: 04/28/18 08:47 Dose: 400 mg Metoprolol Tartrate (Lopressor) 100 mg PO BID [facility] Stop: 05/24/18 20:59 Last Admin: 04/28/18 08:45 Dose: 100 mg Miscellaneous (Carbohydrates For Hypoglycemia) 15 - 30 gm PO UD PRN PRN Reason: Hypoglycemia Treatment Stop: 05/24/18 16:37 Olmesartan (Benicar) 5 mg PO HS [facility] Stop: 05/24/18 20:59 Last Admin: 04/27/18 20:16 Dose: 5 mg Ondansetron HCl (Zofran Odt) 4 mg PO Q4H PRN PRN Reason: Nausea And Vomiting Stop: 05/24/18 16:37 Last Admin: 04/27/18 09:30 Dose: 4 mg Ondansetron HCl (Zofran) 4 mg IV Q4H PRN PRN Reason: Nausea And Vomiting Stop: 05/24/18 16:37 Last Admin: 04/25/18 05:39 Dose: 4 mg Pantoprazole Sodium (Protonix) 40 mg PO DAILY [facility] Stop: 05/25/18 08:59 Last Admin: 04/28/18 08:47 Dose: 40 mg Tolterodine Tartrate (Detrol) 2 mg PO BID [facility] Stop: 05/24/18 20:59 Last Admin: 04/28/18 08:47 Dose: 2 mg Resident Activity Tracking Resident Involvement: Resident Care Provided Care Provided: [facility]
--- NOTE | 2018-04-28 17:43 | Nuclear Medicine Report ---
NM pul vent and perfuse CLINICAL HISTORY: 87 years-old Female with possible PE on CT. CKD. Acute shortness of breath with hi story of pulmonary arterial hypertension COMPARISON STUDY: CT chest of same day, chest radiograph 04/24/2017. TECHNIQUE: Initially, ventilation images of both lungs are obtained following the inhalation of 31.2 mCi of aerosolized technetium 99m DTPA. Subsequently, perfusion images of both lungs were obtained fo llowing the IV administration of 6.39 mCi of technetium 99m MAA. Ventilation and perfusion images wer e acquired in the anterior, posterior, and oblique projections. FINDINGS: A chest x-ray performed on 04/24/2018 showed no acute process Ventilation images demonstrate central clumping of the radiotracer. No large mismatched segmental per fusion defects identified. There are multiple small and moderate sized nonsegmental matched ventilati on/perfusion defects throughout the bilateral lungs. IMPRESSION:Low probability for pulmonary embolus. The above report was generated using voice recognition software. It may contain grammatical, syntax o r spelling errors. Electronically signed by: Ernesto Mitchell M.D. 04/28/2018 5:42 PM
[2018-04-28] MEDS: cefTRIAXone SODIUM 1,000 MG in DEXTROSE 5% 50 ML IV SCH (18:09)
[2018-04-28] MEDS: DICLOFENAC SOD 1% GEL 100 GM TUBE EXT SCH (18:10)
[2018-04-28] MEDS: DIGOXIN 0.125 MG TAB PO SCH (18:10)
[2018-04-28] MEDS: AZITHROMYCIN 250 MG in DEXTROSE 5% 250 ML IV SCH (18:24)
[2018-04-28] MEDS: OLMESARTAN MEDOXOMIL 5 MG TAB PO SCH (21:17)
[2018-04-29] MEDS: LEVOTHYROXINE SODIUM 75 MCG TABLET PO SCH (06:01)
[2018-04-29 07:19] LABS: Partial Thromboplastin Ratio 0.9; Partial Thromboplastin Time 24.3 Seconds (21.0-31.0)
[2018-04-29 07:34] LABS: BUN Creatinine Ratio 31.7 (10-20); Calcium 8.3 mg/dl (8.5-10.1); Creatinine Clr Calc Pharmacy 14.9 ml/min; Est GFR (African American) 20.3; Est GFR (Non-African American) 17.5; Potassium 5.3 mmol/L (3.5-5.1)
[2018-04-29] MEDS: LEVALBUTEROL HCL 0.63 MG/3 ML NEB INH SCH ×2 (07:40→14:24)
[2018-04-29] MEDS: ONDANSETRON INJ 2 MG/ML 2 ML VIAL IV PRN (07:49)
[2018-04-29] MEDS: DOCUSATE SODIUM 100 MG CAP PO SCH (08:57)
[2018-04-29] MEDS: guaiFENesin 600 MG TABCR PO SCH (08:57)
[2018-04-29] MEDS: LORATADINE 10 MG TAB PO SCH (08:57)
[2018-04-29] MEDS: methylPREDNISolone 40 MG in SYRINGE 0 ML IV SCH (08:57)
[2018-04-29] MEDS: PANTOprazole 40 MG TAB PO SCH (08:57)
[2018-04-29] MEDS: TOLTERODINE TARTRATE 2 MG TAB PO SCH (08:57)
[2018-04-29] MEDS: MAGNESIUM OXIDE 400 MG TAB PO SCH (08:58)
[2018-04-29] MEDS: METOPROLOL TARTRATE 100 MG TAB PO SCH (08:58)
[2018-04-29] MEDS: BUMETANIDE 1 MG TAB PO SCH (08:59)
[2018-04-29] MEDS: BENZONATATE 100 MG CAPSULE PO SCH ×2 (09:00→15:05)
[2018-04-29] MEDS: OMEGA-3 (PURIFIED FISH OIL) 1 GM CAP PO SCH (09:00)
[2018-04-29] MEDS: CALCITRIOL 0.25 MCG CAPSULE PO SCH (09:00)
[2018-04-29] MEDS: HEPARIN SOD 5,000 UNIT/0.5 ML VIAL SQ SCH (09:01)
[2018-04-29] MEDS: FAMOTIDINE 20 MG TAB PO SCH (09:01)
[2018-04-29] MEDS: INSULIN ASPART 100 UNITS/ML 3 ML PEN SC SCH ×3 (09:04→17:22)
[2018-04-29] MEDS: FLUTICASONE PROPIONATE NA SPR 16 GM BTL SCH (09:04)
[2018-04-29] MEDS: INSULIN GLARGINE SOLOSTAR 100 UNITS/ML 3 ML PEN SQ SCH (09:05)
[2018-04-29] MEDS: LORazepam 0.5 MG TAB PO SCH (09:09)
[2018-04-29] MEDS: ATORVASTATIN 10 MG TAB PO SCH (10:41)
[2018-04-29] MEDS: ESCITALOPRAM OXALATE ORAL SOLN 5 MG/5 ML PO SCH (12:54)
--- NOTE | 2018-04-29 14:02 | XRay Report ---
XR abdomen 2V w PA chest CLINICAL HISTORY: N/V, lower abd pain pain. Nausea. COMPARISON STUDY: 04/24/2017 FINDINGS: Mild stable cardiomegaly. Prior median sternotomy. Permanent bipolar cardiac pacemaker. Lungs are considered clear. Diaphragms are smooth. Nonobstructive bowel pattern. IMPRESSION: No acute process of the abdomen or pelvis. The above report was generated using voice recognition software. It may contain grammatical, syntax or spelling errors. Electronically signed by: Yfn Hoang M.D. 04/29/2018 2:00 PM
--- NOTE | 2018-05-07 06:09 | Coding Query ---
CODING QUERY To promote full compliance with coding requirements relating to patient care, provider participation is requested in all cases of professional fee coder uncertainty. Please assist us with the question(s) below: In the record, it states that the patient has an UTI. Please clarify below the cause of the UTI if applicable. Thank you. ( ) The chronic saenz was the cause of the UTI. ( ) Other urinary cath/device was the cause of the UTI. ( x ) UTI, unspecified cause. ( ) Other (Specify): Thank you for your time, GERMAINE Dinh, [facility]
== END 2018-04-29 18:05 | DRG 291 ==
LOC: ED 11:53 → SUATTDRO 14:50 → 2N 14:50

== ENCOUNTER 2018-05-23 12:12 | Inpatient (IN) ==
--- NOTE | 2018-05-23 12:35 | Emergency Department Note ---
Entered by Joie Root acting as a scribe for History of Present Illness General Chief complaint: Shortness of Breath/Dyspnea Stated complaint: WEAKNESS, LETHARGIC Mode of arrival: EMS Limitations: no limitations History of Present Illness Onset (ago): day(s) 1 Location: head (generalized weakness), upper extremity and lower extremity Pain Consistency: + other (worsening) Exacerbated By: + other (lying flat ) Associated symptoms: + shortness of breath, + weakness (generalized) and + other (The patient complains of change of vision, pain in the left axilla, and lethargy. The patient denies diarrhea. ); no headaches and no nausea/vomiting The patient is an 87 year old female who presents to the ED with complaints of worsening shortness of breath that onset last night. Per EMS, the patient lives in a retirement. They note that her retirement called EMS. She states that her pain is exacerbated with lying flat. The patient complains of change of vision, pain in the left axilla, shortness of breath, generalized weakness, and lethargy. The patient denies headache, nausea, vomiting, and diarrhea. She notes that she recently had surgery on her left arm for a dialysis fistula. Home Medications Home Medications Medication Instructions Recorded Confirmed Type acetaminophen [Tylenol Extra 500 mg PO Q6H PRN 04/24/18 05/23/18 History Strength] ascorbic acid (vitamin C) [Vitamin 500 mg PO QAM 04/24/18 05/23/18 History C] atorvastatin 10 mg PO QAM 04/24/18 05/23/18 History benzonatate 100 mg PO TID 04/24/18 05/23/18 History biotin 10,000 mcg PO QAM 04/24/18 05/23/18 History bumetanide 1 mg PO QAM 04/24/18 05/23/18 History calcitriol 0.25 mg PO Q2D 04/24/18 05/23/18 History cholecalciferol (vitamin D3) 1,000 unit PO QAM 04/24/18 05/23/18 History [Vitamin D3] cranberry 1,000 mg PO BID 04/24/18 05/23/18 History digoxin 125 mcg PO 3XWK 04/24/18 05/23/18 History docusate sodium [Colace] 100 mg PO BID 04/24/18 05/23/18 History escitalopram oxalate 5 mg PO QDL 04/24/18 05/23/18 History fluticasone [Flonase Allergy 2 spray INTRANASAL DAILY 04/24/18 05/23/18 History Relief] lansoprazole 30 mg PO QAM 04/24/18 05/23/18 History levalbuterol HCl 0.63 mg INHALATION TID 04/24/18 05/23/18 History levothyroxine 75 mcg PO QAM 04/24/18 05/23/18 History loratadine 10 mg PO QAM 04/24/18 05/23/18 History lorazepam 0.5 mg PO DAILY 04/24/18 05/23/18 History magnesium oxide 400 mg PO QAM 04/24/18 05/23/18 History metoprolol tartrate 100 mg PO BID 04/24/18 05/23/18 History omega-3 acid ethyl esters 2,000 mg PO BID 04/24/18 05/23/18 History ondansetron 4 mg PO Q4H PRN 04/24/18 05/23/18 History tolterodine 2 mg PO BID 04/24/18 05/23/18 History aspirin 81 mg PO QAM 05/23/18 05/23/18 History cyanocobalamin (vitamin B-12) 1,000 mcg PO QAM 05/23/18 05/23/18 History [Vitamin B-12] insulin glargine [Basaglar KwikPen 30 unit SUBCUT DAILY 05/23/18 05/23/18 History U-100 Insulin] nitrofurantoin macrocrystal 50 mg PO HS 05/23/18 05/23/18 History nitroglycerin 0.4 mg SUBLINGUAL UD 05/23/18 05/23/18 History olmesartan [Benicar] 20 mg PO HS 05/23/18 05/23/18 History Allergies Allergy/AdvReac Type Severity Reaction Status Date / Time fenofibrate Allergy Intermediate rash Verified 05/23/18 13:12 amoxicillin Allergy Unknown UNKNOWN Verified 05/23/18 13:12 calcium carbonate Allergy Unknown . Verified 05/23/18 13:12 Cipro Allergy Unknown . Verified 10/30/17 13:10 ciprofloxacin Allergy Unknown . Verified 05/23/18 13:12 diphenhydramine Allergy Unknown . Verified 05/23/18 13:12 fexofenadine Allergy Unknown UNKNOWN Verified 05/23/18 13:12 irbesartan Allergy Unknown UNKNOWN Verified 05/23/18 13:12 lidocaine Allergy Unknown . Verified 05/23/18 13:12 niacin Allergy Unknown RASH Verified 05/23/18 13:12 nystatin Allergy Unknown . Verified 05/23/18 13:12 Penicillins Allergy Unknown UNKNOWN Verified 05/23/18 13:12 Sulfa (Sulfonamide Allergy Unknown UNKNOWN Verified 05/23/18 13:12 Antibiotics) flumazenil AdvReac Intermediate DELIRIUM Verified 05/23/18 13:12 tomato AdvReac Unknown GI SYMPTOMS Verified 05/23/18 13:12 Past Med/Surg History Medical History COPD (chronic obstructive pulmonary disease) Depression Pacemaker (Chronic) DM (diabetes mellitus) (Chronic) Chest pain (Acute) SOB (shortness of breath) (Acute) Atrial fibrillation (Chronic) Hypertension (Chronic 05/10/14) GERD (gastroesophageal reflux disease) (Chronic) Renal failure (Chronic) Anxiety (Acute) CHF (congestive heart failure) (Chronic) Chronic kidney disease Hyponatremia Moderate to severe pulmonary hypertension Severe mitral regurgitation Surgical History S/P quintuple vessel bypass (Resolved) History of cardiac cath (Resolved) Social History Preferred Language: Ukrainian Beliefs That Will Affect Care: None Current Living Situation: Personal Care Facility Current Living Situation Comment: [facility] Feels Safe at Home: Yes Smoking Status: Never smoker Hx Alcohol Use: No Hx Substance Use: No Review of Systems See HPI for pertinent positives & negatives. and A total of 10 systems reviewed and were otherwise negative Physical Exam Vital Signs Vital Signs - 24 hr 05/23/18 12:25 05/23/18 12:31 05/23/18 13:50 Temperature 36.8 C Temperature Source Oral Sepsis Recent Fever Within 48 Hours No Sepsis New/Unexplained Change in Mental Status No Sepsis Action Taken by Nursing No Action Required Pulse Rate 72 Pulse Rate [Right Finger] 71 Pulse Rhythm [Right Finger] Pulse Strength [Right Finger] Respiratory Rate 20 20 Respiratory Effort / Characteristics Respiratory Depth Respiratory Pattern Blood Pressure 160/66 H Blood Pressure [Left Arm] 142/51 H Blood Pressure Mean 97 Blood Pressure Mean [Left Arm] 81 Blood Pressure Position [Left Arm] Pulse Oximetry 95 95 95 Oxygen Delivery Method Room Air Room Air Room Air 05/23/18 14:56 05/23/18 16:18 05/23/18 18:00 Temperature Temperature Source Sepsis Recent Fever Within 48 Hours Sepsis New/Unexplained Change in Mental Status Sepsis Action Taken by Nursing Pulse Rate Pulse Rate [Right Finger] 68 71 71 Pulse Rhythm [Right Finger] Regular Regular Regular Pulse Strength [Right Finger] Normal Normal Normal Respiratory Rate 22 22 20 Respiratory Effort / Characteristics Non-Labored Spontaneous Non-Labored Spontaneous Non-Labored Spontaneous Respiratory Depth Normal Normal Normal Respiratory Pattern Regular Regular Regular Blood Pressure Blood Pressure [Left Arm] 145/64 H 163/59 H 154/54 H Blood Pressure Mean Blood Pressure Mean [Left Arm] 91 93 87 Blood Pressure Position [Left Arm] Sitting Sitting Sitting Pulse Oximetry 97 98 97 Oxygen Delivery Method Room Air Room Air Room Air 05/23/18 18:43 Temperature Temperature Source Sepsis Recent Fever Within 48 Hours Sepsis New/Unexplained Change in Mental Status Sepsis Action Taken by Nursing Pulse Rate Pulse Rate [Right Finger] 71 Pulse Rhythm [Right Finger] Regular Pulse Strength [Right Finger] Normal Respiratory Rate 18 Respiratory Effort / Characteristics Non-Labored Spontaneous Respiratory Depth Normal Respiratory Pattern Regular Blood Pressure Blood Pressure [Left Arm] 155/61 H Blood Pressure Mean Blood Pressure Mean [Left Arm] 92 Blood Pressure Position [Left Arm] Sitting Pulse Oximetry 98 Oxygen Delivery Method Room Air GENERAL: Patient is awake and alert. She is somewhat anxious appearing. EYES: The conjunctivae are clear. The pupils are round and reactive. EARS, NOSE, MOUTH AND THROAT: The nose is without any evidence of any deformity. Mucous membranes are moist tongue is midline NECK: The neck is nontender and supple. RESPIRATORY: Tachypnea with conversational dyspnea is appreciated. Breath sounds were diminished throughout with rales. CARDIOVASCULAR: Regular rate and rhythm noted there no murmurs rubs or gallops normal S1 normal S2 GASTROINTESTINAL: The abdomen is soft. Bowel sounds are present in all quadrants. Abdomen is nontender MUSCULOSKELETAL/EXTREMITIES: There is no evidence of gross deformity full range of motion is noted in the hips and shoulders SKIN: There is no obvious evidence of any rash. Pedal edema was noted bilaterally. There was a recent surgical site noted in the right antecubital fossa. This is a site of a recent fistula placement. NEUROLOGIC: Patient is awake alert and oriented x3. Strength was symmetric but diminished bilaterally. Course 1217: Past medical records reviewed. The patient was evaluated in room B6, and a complete history and physical examination were performed. 1545: I updated the patient. Upon reevaluation, the patient is resting comfortab ly. She states that she would like to stay in the hospital. 1553: I reviewed the patient's case with Laly Corea PA-C. She will evaluate the patient for further management. Consultations Consultation #1: 1553: I reviewed the patient's case with Laly Corea PA-C. She will evaluate the patient for further management. Time: 15:53 Administered Medications Discontinued Medications Furosemide (Lasix) 40 mg IV NOW STA Stop: 05/23/18 13:50 Last Admin: 05/23/18 14:04 Dose: 40 mg Documented by: [id number] Medical Decision Making Differential Diagnosis Differential diagnosis: Etiologies such as infections, reactive airway disease, COPD, pneumonia, pleural effusion, pulmonary edema, ARDS, pneumothorax, CHF, cardiac ischemia, cardiac tamponade, dysrhythmia, anemia, pulmonary embolism, musculoskeletal, gastrointestinal process, as well as others were entertained. Medical Records Attestation: I reviewed the patient's medical records. Home Medications Current Medication List: was personally reviewed by me Laboratory Data Attestation: I reviewed the patient's lab results. Result diagrams: 05/23/18 12:00 05/23/18 12:00 Lab Results 05/23/18 05/23/18 05/23/18 Range/Units 12:00 12:00 12:00 WBC 8.62 (4.8-10.8) K/uL RBC 3.93 L (4.2-5.4) M/uL Hgb 10.6 L (12.0-16.0) g/dL Hct 33.8 L (37-47) % MCV 86.0 (80-100) fL MCH 27.0 (25-34) pg MCHC 31.4 L (32-36) g/dL RDW Std Deviation 55.4 H (36.4-46.3) fL RDW Coeff of Anthony 17.6 H (11.5-14.5) % Plt Count 281 (130-400) K/uL MPV 9.0 (7.4-10.4) fL Immature Gran % (Auto) 0.1 % Neut % (Auto) 77.6 % Lymph % (Auto) 12.4 % Dodge % (Auto) 6.5 % Eos % (Auto) 3.2 % Baso % (Auto) 0.2 % Immature Gran # (Auto) 0.01 (0.00-0.02) K/uL Neut # (Auto) 6.68 H (1.4-6.5) K/uL Lymph # (Auto) 1.07 L (1.2-3.4) K/uL Dodge # (Auto) 0.56 (0.11-0.59) K/uL Eos # (Auto) 0.28 (0-0.5) K/uL Baso # (Auto) 0.02 (0-0.2) K/uL PT 10.6 (9.0-12.0) Seconds INR 1.0 (0.9-1.1) APTT 27.1 (21.0-31.0) Seconds PTT Ratio 1.0 VBG pH (7.36-7.41) VBG pCO2 (38-50) mmHg VBG pO2 mmHg VBG HCO3 mmol/L VBG O2 Saturation % VBG Base Excess mEq/L Barometric Pressure mm/Hg Sodium 130 L (136-145) mmol/L Potassium 4.9 (3.5-5.1) mmol/L Chloride 96 L (98-107) mmol/L Carbon Dioxide 26 (21-32) mmol/L Anion Gap 7.0 (3-11) BUN 54 H (7-18) mg/dl Creatinine 1.94 H (0.6-1.2) mg/dl Est Cr Clr Drug Dosing 18.0 ml/min Est GFR ( Amer) 26.1 Est GFR (Non-Af Amer) 22.6 BUN/Creatinine Ratio 27.6 H (10-20) Glucose 133 H (70-99) mg/dl Calcium 9.0 (8.5-10.1) mg/dl Magnesium 2.1 (1.8-2.4) mg/dl Total Bilirubin 0.6 (0.2-1) mg/dl AST 23 (15-37) U/L ALT 31 (12-78) U/L Alkaline Phosphatase 92 (45-117) U/L Troponin I < 0.015 (0-0.045) ng/ml Total Protein 7.0 (6.4-8.2) gm/dl Albumin 3.3 L (3.4-5.0) gm/dl Globulin 3.7 (2.5-4.0) gm/dl Albumin/Globulin Ratio 0.9 (0.9-2) Urine Color Urine Appearance (Clear) Urine pH (4.5-7.5) Ur Specific [place] (1.000-1.030) Urine Protein (Negative) Urine Glucose (UA) (Negative) Urine Ketones (Negative) Urine Blood (Negative) Urine Nitrite (Negative) Urine Bilirubin (Negative) Urine Urobilinogen (Negative) Ur Leukocyte Esterase (Negative) Urine WBC (Auto) (0-5) /hpf Urine RBC (Auto) (0-4) /hpf U Hyaline Cast (Auto) (0-5) /lpf U Epithel Cells (Auto) (0-5) /lpf Urine Bacteria (Auto) (Negative) Urine Yeast 05/23/18 05/23/18 Range/Units 12:59 15:15 WBC (4.8-10.8) K/uL RBC (4.2-5.4) M/uL Hgb (12.0-16.0) g/dL Hct (37-47) % MCV (80-100) fL MCH (25-34) pg MCHC (32-36) g/dL RDW Std Deviation (36.4-46.3) fL RDW Coeff of Anthony (11.5-14.5) % Plt Count (130-400) K/uL MPV (7.4-10.4) fL Immature Gran % (Auto) % Neut % (Auto) % Lymph % (Auto) % Dodge % (Auto) % Eos % (Auto) % Baso % (Auto) % Immature Gran # (Auto) (0.00-0.02) K/uL Neut # (Auto) (1.4-6.5) K/uL Lymph # (Auto) (1.2-3.4) K/uL [place] # (Auto) (0.11-0.59) K/uL Eos # (Auto) (0-0.5) K/uL Baso # (Auto) (0-0.2) K/uL PT (9.0-12.0) Seconds INR (0.9-1.1) APTT (21.0-31.0) Seconds PTT Ratio VBG pH 7.39 (7.36-7.41) VBG pCO2 42 (38-50) mmHg VBG pO2 45 mmHg VBG HCO3 25 mmol/L VBG O2 Saturation 78.4 % VBG Base Excess 0 mEq/L Barometric Pressure 736.5 mm/Hg Sodium (136-145) mmol/L Potassium (3.5-5.1) mmol/L Chloride (98-107) mmol/L Carbon Dioxide (21-32) mmol/L Anion Gap (3-11) BUN (7-18) mg/dl Creatinine (0.6-1.2) mg/dl Est Cr Clr Drug Dosing ml/min Est GFR ( Amer) Est GFR (Non-Af Amer) BUN/Creatinine Ratio (10-20) Glucose (70-99) mg/dl Calcium (8.5-10.1) mg/dl Magnesium (1.8-2.4) mg/dl Total Bilirubin (0.2-1) mg/dl AST (15-37) U/L ALT (12-78) U/L Alkaline Phosphatase (45-117) U/L Troponin I (0-0.045) ng/ml Total Protein (6.4-8.2) gm/dl Albumin (3.4-5.0) gm/dl Globulin (2.5-4.0) gm/dl Albumin/Globulin Ratio (0.9-2) Urine Color Yellow Urine Appearance Cloudy H (Clear) Urine pH 7.5 (4.5-7.5) Ur Specific [place] 1.008 (1.000-1.030) Urine Protein Trace H (Negative) Urine Glucose (UA) Negative (Negative) Urine Ketones Negative (Negative) Urine Blood Trace H (Negative) Urine Nitrite Negative (Negative) Urine Bilirubin Negative (Negative) Urine Urobilinogen Negative (Negative) Ur Leukocyte Esterase 3+ H (Negative) Urine WBC (Auto) >30 H (0-5) /hpf Urine RBC (Auto) 10-30 H (0-4) /hpf U Hyaline Cast (Auto) 5-10 H (0-5) /lpf U Epithel Cells (Auto) 0-5 (0-5) /lpf Urine Bacteria (Auto) 1+ H (Negative) Urine Yeast Not Reportable Imaging Data Radiologist's Impression: Radiology results as stated below per my review and the radiologist's interpretation: XR chest 1V portable CLINICAL HISTORY: Dyspnea COMPARISON STUDY: Chest CT April 28, 2018. Chest radiograph April 29, 2018. FINDINGS: Left subclavian pacer is noted as well as median sternotomy wires. Cardiomegaly is unchanged. There is no evidence for pulmonary edema. Patient is rotated. There is no pneumothorax. There are trace bilateral pleural effusions. No consolidation is identified. IMPRESSION: 1. Trace bilateral pleural effusions. 2. Cardiomegaly without evidence for pulmonary edema. 3. No consolidation. Electronically signed by: Ramon Bradshaw M.D. 05/23/2018 12:55 PM Dictated: 05/23/18 1253 Transcribed: 05/23/18 1253 ECG Data Attestation: I personally reviewed and interpreted this ECG as follows: Indication: SOB/dyspnea Rate (beats per minute): 71 Rhythm: other (Ventricular paced ) Findings: + PVC (match-e-be-nash-she-wish band) Comparison ECG Date: from (04/28/18) Change: the following changes noted Blood Pressure Blood Pressure Findings: Elevated blood pressure Blood Pressure Disposition: further management by hospitalist MDM Narrative The patient is an 87-year-old female who presented to the emergency department from her personal retirement for shortness of breath. The patient appeared to have significant tachypnea when she arrived. Overall I thought her history and physical exam was consistent with fluid overload. She was treated with IV Lasix in the emergency department. She diuresed a good amount of fluid. On subsequent reevaluation she was resting comfortably. The patient was recently discharged from our facility with similar complaints. I discussed the patient's laboratory and radiographic studies with her. I discussed her case with the [facility] hospitalist group. They have agreed to evaluate the patient in the emergency department for further management and disposition. Impression & Plan Chest pain, Dyspnea, Pulmonary edema Discharge Plan Visit Data Chief Complaint: Shortness of Breath/Dyspnea Stated Complaint: WEAKNESS, LETHARGIC ED Provider: Ab Hampton Discharge Problem: Chest pain, Dyspnea, Pulmonary edema Forms Stand Alone Forms: My [facility] [employer] Prescriptions Prescriptions: No Action nitrofurantoin macrocrystal 50 mg capsule 50 mg PO HS RF: 0 cyanocobalamin (vitamin B-12) [Vitamin B-12] 1,000 mcg Tablet 1,000 mcg PO QAM RF: 0 aspirin 81 mg Tablet,Delayed Release (Dr/Ec) 81 mg PO QAM RF: 0 nitroglycerin 0.4 mg Tablet, Sublingual 0.4 mg Sublingual UD RF: 0 olmesartan [Benicar] 20 mg Tablet 20 mg PO HS RF: 0 Basaglar KwikPen U-100 Insulin 100 unit/mL (3 mL) insulin pen 30 unit subcut DAILY RF: 0 atorvastatin 10 mg tablet 10 mg PO QAM RF: 0 levalbuterol HCl 0.63 mg/3 mL solution for nebulization 0.63 mg Inhalation TID RF: 0 metoprolol tartrate 100 mg tablet 100 mg PO BID RF: 0 acetaminophen [Tylenol Extra Strength] 500 mg Tablet 500 mg PO Q6H PRN (Reason: Pain) RF: 0 levothyroxine 75 mcg tablet 75 mcg PO QAM RF: 0 tolterodine 2 mg tablet 2 mg PO BID RF: 0 lorazepam 0.5 mg tablet 0.5 mg PO DAILY RF: 0 ascorbic acid (vitamin C) [Vitamin C] 500 mg Tablet 500 mg PO QAM RF: 0 benzonatate 100 mg capsule 100 mg PO TID RF: 0 biotin 10,000 mcg Capsule 10,000 mcg PO QAM RF: 0 lansoprazole 30 mg capsule,delayed release(DR/EC) 30 mg PO QAM RF: 0 docusate sodium [Colace] 100 mg Capsule 100 mg PO BID RF: 0 bumetanide 1 mg tablet 1 mg PO QAM RF: 0 digoxin 125 mcg tablet 125 mcg PO 3XWK RF: 0 ondansetron 4 mg tablet,disintegrating 4 mg PO Q4H PRN (Reason: Nausea And Vomiting) RF: 0 calcitriol 0.25 mcg capsule 0.25 mg PO Q2D RF: 0 cranberry 500 mg Capsule 1,000 mg PO BID RF: 0 cholecalciferol (vitamin D3) [Vitamin D3] 1,000 unit Capsule 1,000 unit PO QAM RF: 0 escitalopram oxalate 5 mg tablet 5 mg PO QDL RF: 0 omega-3 acid ethyl esters 1 gram capsule 2,000 mg PO BID RF: 0 loratadine 10 mg Capsule 10 mg PO QAM RF: 0 magnesium oxide 400 mg Capsule 400 mg PO QAM RF: 0 fluticasone [Flonase Allergy Relief] 50 mcg/actuation [place],Suspension 2 spray INTRANASAL DAILY RF: 0 Referrals Referrals: Deion Downs MD [Primary Care Provider] - Discharge Problem: Chest pain Qualifiers: Chest pain type: unspecified Qualified Code(s): R07.9 - Chest pain, unspecified Dyspnea Qualifiers: Dyspnea type: unspecified Qualified Code(s): R06.00 - Dyspnea, unspecified Pulmonary edema Qualifiers: Chronicity: acute Qualified Code(s): J81.0 - Acute pulmonary edema The scribe's documentation has been prepared under my direction and personally reviewed by me in its entirety. I confirm that the note above accurately reflects all work, treatment, procedures, and medical decision making performed by me.
--- NOTE | 2018-05-23 12:56 | XRay Report ---
XR chest 1V portable CLINICAL HISTORY: Dyspnea COMPARISON STUDY: Chest CT April 28, 2018. Chest radiograph April 29, 2018. FINDINGS: Left subclavian pacer is noted as well as median sternotomy wires. Cardiomegaly is unchange d. There is no evidence for pulmonary edema. Patient is rotated. There is no pneumothorax. There are trace bilateral pleural effusions. No consolidation is identified. IMPRESSION: 1. Trace bilateral pleural effusions. 2. Cardiomegaly without evidence for pulmonary edema. 3. No consolidation. Electronically signed by: Ramon Bradshaw M.D. 05/23/2018 12:55 PM
[2018-05-23 12:58] LABS: Basophils # (auto) 0.02 K/uL (0-0.2); Basophils % (auto) 0.2 %; Eosinophils # (auto) 0.28 K/uL (0-0.5); Eosinophils % (auto) 3.2 %; Hematocrit (blood only) 33.8 % (37-47); Hemoglobin 10.6 g/dL (12.0-16.0); Immature Granulocytes # (auto) 0.01 K/uL (0.00-0.02); Immature Granulocytes % (auto) 0.1 %; Lymphocytes # (auto) 1.07 K/uL (1.2-3.4); Lymphocytes % (auto) 12.4 %; Mean Corpuscular Hgb Conc 31.4 g/dL (32-36); Monocytes # (auto) 0.56 K/uL (0.11-0.59); Monocytes % (auto) 6.5 %; Neutrophils # (auto) 6.68 K/uL (1.4-6.5); Neutrophils % (auto) 77.6 %; Platelet Count 281 K/uL (130-400); RDW Coefficient of Variation 17.6 % (11.5-14.5); RDW Standard Deviation 55.4 fL (36.4-46.3); Red Blood Count 3.93 M/uL (4.2-5.4); White Blood Count 8.62 K/uL (4.8-10.8)
[2018-05-23 13:02] LABS: Alanine Aminotransferase 31 U/L (12-78); Albumin Level 3.3 gm/dl (3.4-5.0); Aspartate Aminotransferase 23 U/L (15-37); BUN Creatinine Ratio 27.6 (10-20); Blood Urea Nitrogen 54 mg/dl (7-18); Carbon Dioxide 26 mmol/L (21-32); Chloride 96 mmol/L (98-107); Est GFR (African American) 26.1; Est GFR (Non-African American) 22.6; Glucose 133 mg/dl (70-99); Magnesium 2.1 mg/dl (1.8-2.4); Potassium 4.9 mmol/L (3.5-5.1); Sodium 130 mmol/L (136-145)
[2018-05-23 13:07] LABS: Albumin Globulin Ratio 0.9 (0.9-2); Alkaline Phosphatase 92 U/L (45-117); Bilirubin,Total 0.6 mg/dl (0.2-1); Globulin 3.7 gm/dl (2.5-4.0); Troponin I < 0.015 ng/ml (0-0.045)
[2018-05-23 13:12] LABS: Oxygen Saturation VBG 78.4 %; pH VBG 7.39 (7.36-7.41)
[2018-05-23 13:30] LABS: Partial Thromboplastin Time 27.1 Seconds (21.0-31.0); Prothrombin Time 10.6 Seconds (9.0-12.0)
[2018-05-23] MEDS ORDERED: FUROSEMIDE 40 MG/4 ML VIAL IV STA (13:49)
[2018-05-23 15:52] LABS: Appearance Urine Cloudy (Clear); Bacteria Urine Automated 1+ (Negative); Bilirubin Urine Negative (Negative); Blood Urine Trace (Negative); Color Urine Yellow; Epithelial Cell Urine Auto 0-5 /lpf (0-5); Glucose Urine UA Negative (Negative); Ketones Urine Negative (Negative); Leukocyte Esterase Urine 3+ (Negative); Nitrite Urine Negative (Negative); Specific Gravity Urine 1.008 (1.000-1.030); Urobilinogen Urine Negative (Negative); WBC Urine Automated >30 /hpf (0-5); pH Urine 7.5 (4.5-7.5)
[2018-05-23 15:57] LABS: Protein Urine Trace (Negative)
[2018-05-23] MEDS ORDERED: GLUCOSE 40% GEL 15 GM TUBE PO PRN ×2 (17:30→20:10)
[2018-05-23] MEDS ORDERED: ONDANSETRON INJ 2 MG/ML 2 ML VIAL IV PRN (17:30)
[2018-05-23] MEDS ORDERED: POLYETHYLENE (MIRALAX) 17 GM PACK PO PRN (17:30)
[2018-05-23] MEDS ORDERED: DEXTROSE 50% 50 ML SYRINGE IV PRN ×2 (17:30→20:10)
[2018-05-23] MEDS ORDERED: GLUCAGON FOR INJ 1 MG VIAL SQ PRN ×2 (17:30→20:10)
[2018-05-23] MEDS ORDERED: GLUCOSE 10 TABS/TUBE PO PRN ×2 (17:30→20:10)
--- NOTE | 2018-05-23 19:24 | History & Physical Report ---
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 likely secondary to CHF exacerbation, although considered COPD as well. Pneumonia less likely given lack of fever, leukocytosis - Admit to [facility] - Daily weights, I/O's - Given IV Lasix 40 mg in ED - Restart PO Bumex at home dose of 1 mg daily - Monitor Cr daily while with administration of diuretics - PRN additional IV LAsix (2) CHF (congestive heart failure): likely in exacerbation Given 40 mg Lasix in ED felt symptomatic improvement despite no obvious signs on CXR of pulm edema Restart Bumex at home dose, add prn LASIX Last Echo 04/2018 mild concentric ventricular hypertrophy LV systolic fxn mild to moderately reduced moderate to severe tricuspid regurgitation, mild to mod tricuspid regurgitation EF 40-45% mod global hypokinesis of LV (3) COPD (chronic obstructive pulmonary disease): does not appear to be in exacerbation no wheezing on exam, normal saturation on room air Scheduled/PRN Duonebs, Continue home INH (4) Dizziness: one episode of dizziness likely presyncopal prior to arrival - resolved, not hypotensive on arrival, has pacer - ordered orthostatics - monitor on [facility] (5) CKD (chronic kidney disease), stage III: -Stage IV -Patient had RUE AVF placed recently, not currently in use - Monitor Cr. closely, increased dose of Bumex if needed, add lasix needed - below baseline =2.0-2.3 - Follows with Dr. Urias as outpatient. (6) Atrial fibrillation: permanent, rate controlled asx Continue digoxin Metoprolol tartrate 100 mg BID not on anticoagulation due to previous history epistaxis (7) Hypothyroidism (acquired): Continue Levothyroxine (8) DM (diabetes mellitus): ISS Basal 10u BID follow BGL ACHS (9) S/P quintuple vessel bypass: negative troponin on arrival chest discomfort with inspiration appears respiratory in origin as opposed to cardiac (10) Hyponatremia: Chronic, within baseline range Continue to monitor daily BMPs (11) Hypertension: BP elevated on arrival Restart home medications including Metoprolol, Benicar (12) GERD (gastroesophageal reflux disease): COntinue Lansoprazole (13) DVT prophylaxis: Heparin History of Present Illness Chief Complaint: Dysonea Primary Care Provider: Deion Downs MD 87 yo F with PMHx of HTN, HLD, CAD, 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 Patient was admitted 04/24-04/27 for SOB, claire LE edema. Symptoms were attributed to CHF vs COPD vs Pneumonia. VQ scan was unremarkable for PE. She was treated with Azithromycin, Ceftriaxone, IV solumedrol, Bumex, sent home on azithromycin, Cefdinir, prednisone taper. She was discharged to [facility] followed by discharge to her personal long-term. Patient reports worsening SOB x 2 days particularly throughout the night. She reports chest discomfort with inspiration had episode of dizziness, blurry vision. She also reports chronic cough, more recently with sputum, runny nose. She doesn't use oxygen at home. She used her nebulizer this morning around 5 am which gave her some relief. Patient reports she has been weighing herself, and has been consistently 141 lbs for days without weight gain or LE edema. She denies calf tenderness. She is a patient Deion Downs, Curly Cleveland is her alternative medicine practitioner ( [place]). In ED, afebrile on arrival, sat 95-98%, elevated BP. CXR shows trace claire pleural effusions, cardiomegaly without pulm edema, no consolidation. White ct is negative. Trop is negative. Hyponatremic on arrival 130 within baseline range, elevated Cr 1.94 within baseline range, Patient received 40 mg IV LASIX in ED. Patient reports some improvement in her symptoms. Allergies Allergy/AdvReac Type Severity Reaction Status Date / Time fenofibrate Allergy Intermediate rash Verified 05/23/18 13:12 amoxicillin Allergy Unknown UNKNOWN Verified 05/23/18 13:12 calcium carbonate Allergy Unknown . Verified 05/23/18 13:12 Cipro Allergy Unknown . Verified 10/30/17 13:10 ciprofloxacin Allergy Unknown . Verified 05/23/18 13:12 diphenhydramine Allergy Unknown . Verified 05/23/18 13:12 fexofenadine Allergy Unknown UNKNOWN Verified 05/23/18 13:12 irbesartan Allergy Unknown UNKNOWN Verified 05/23/18 13:12 lidocaine Allergy Unknown . Verified 05/23/18 13:12 niacin Allergy Unknown RASH Verified 05/23/18 13:12 nystatin Allergy Unknown . Verified 05/23/18 13:12 Penicillins Allergy Unknown UNKNOWN Verified 05/23/18 13:12 Sulfa (Sulfonamide Allergy Unknown UNKNOWN Verified 05/23/18 13:12 Antibiotics) flumazenil AdvReac Intermediate DELIRIUM Verified 05/23/18 13:12 tomato AdvReac Unknown GI SYMPTOMS Verified 05/23/18 13:12 Home Medications Home Medications Medication Instructions Recorded Confirmed Type acetaminophen [Tylenol Extra 500 mg PO Q6H PRN 04/24/18 05/23/18 History Strength] ascorbic acid (vitamin C) [Vitamin 500 mg PO QAM 04/24/18 05/23/18 History C] atorvastatin 10 mg PO QAM 04/24/18 05/23/18 History benzonatate 100 mg PO TID 04/24/18 05/23/18 History biotin 10,000 mcg PO QAM 04/24/18 05/23/18 History bumetanide 1 mg PO QAM 04/24/18 05/23/18 History calcitriol 0.25 mg PO Q2D 04/24/18 05/23/18 History cholecalciferol (vitamin D3) 1,000 unit PO QAM 04/24/18 05/23/18 History [Vitamin D3] cranberry 1,000 mg PO BID 04/24/18 05/23/18 History digoxin 125 mcg PO 3XWK 04/24/18 05/23/18 History docusate sodium [Colace] 100 mg PO BID 04/24/18 05/23/18 History escitalopram oxalate 5 mg PO QDL 04/24/18 05/23/18 History fluticasone [Flonase Allergy 2 spray INTRANASAL DAILY 04/24/18 05/23/18 History Relief] lansoprazole 30 mg PO QAM 04/24/18 05/23/18 History levalbuterol HCl 0.63 mg INHALATION TID 04/24/18 05/23/18 History levothyroxine 75 mcg PO QAM 04/24/18 05/23/18 History loratadine 10 mg PO QAM 04/24/18 05/23/18 History lorazepam 0.5 mg PO DAILY 04/24/18 05/23/18 History magnesium oxide 400 mg PO QAM 04/24/18 05/23/18 History metoprolol tartrate 100 mg PO BID 04/24/18 05/23/18 History omega-3 acid ethyl esters 2,000 mg PO BID 04/24/18 05/23/18 History ondansetron 4 mg PO Q4H PRN 04/24/18 05/23/18 History tolterodine 2 mg PO BID 04/24/18 05/23/18 History aspirin 81 mg PO QAM 05/23/18 05/23/18 History cyanocobalamin (vitamin B-12) 1,000 mcg PO QAM 05/23/18 05/23/18 History [Vitamin B-12] insulin glargine [Basaglar KwikPen 30 unit SUBCUT DAILY 05/23/18 05/23/18 History U-100 Insulin] nitrofurantoin macrocrystal 50 mg PO HS 05/23/18 05/23/18 History nitroglycerin 0.4 mg SUBLINGUAL UD 05/23/18 05/23/18 History olmesartan [Benicar] 20 mg PO HS 05/23/18 05/23/18 History Past Med/Surg History Medical History COPD (chronic obstructive pulmonary disease) Depression Pacemaker (Chronic) DM (diabetes mellitus) (Chronic) Chest pain (Acute) SOB (shortness of breath) (Acute) Atrial fibrillation (Chronic) Hypertension (Chronic 05/10/14) GERD (gastroesophageal reflux disease) (Chronic) Renal failure (Chronic) Anxiety (Acute) CHF (congestive heart failure) (Chronic) Chronic kidney disease Hyponatremia Moderate to severe pulmonary hypertension Severe mitral regurgitation Surgical History S/P quintuple vessel bypass (Resolved) History of cardiac cath (Resolved) Social History Preferred Language: Kiswahili Communication Ability: Effective Drum Puller Required: No Beliefs That Will Affect Care: None Current Living Situation: Jail Current Living Situation Comment: [place] Feels Safe at Home: Yes Safety Concerns: Feels Safe At This Time Smoking Status: Never smoker Hx Alcohol Use: No Hx Substance Use: No Review of Systems Constitutional: no fever, no chills, no fatigue and no weakness Eyes: + worsening vision (resolved); no diplopia Ear, Nose, Mouth, Throat: + post nasal drip; no sore throat rhinorrhea Respiratory: + cough (productive); no dyspnea and no wheezing Cardiovascular: no chest pain, no palpitations, no edema and no calf pain Gastrointestinal: no abdominal pain, no nausea, no vomiting and no change in stools Genitourinary (Female): no dysuria, no urinary frequency and no urinary urgency Integumentary: no rash, no lesions and no change in skin color Neurologic: + dizziness (resolved); no localized weakness and no headache(s) Physical Exam Vital Signs (Past 24 Hours): Last Vital Signs Temp 36.8 C 05/23/18 12:25 Pulse 71 05/23/18 16:18 Resp 22 05/23/18 16:18 BP 163/59 H 05/23/18 16:18 Pulse Ox 98 05/23/18 16:18 Constitutional: WD/WN, vitals as above no acute distress Eyes: PERRL and EOM intact bilaterally ENMT: external ear and nose normal, oropharynx normal Neck: trachea midline, no thyromegaly Respiratory: + cough; no respiratory distress Auscultation: + rhonchi (claire); no wheezes Cardiovascular: RRR, no murmur, no edema Gastrointestinal (Abdomen): normal bowel sounds, soft, nontender, no hepatosplenomegaly Musculoskeletal: Extremities: extremities normal to inspection + arteriovenous fistula Skin: no rashes, warm and dry Neurologic: PERRL, EOMI, accommodation nl, no face palsy, no dysarthria CN's II-XI intact bilaterally (grossly) and awake Psychiatric: A+Ox3, euthymic affect Results & Data Laboratory Results Laboratory Results WBC 8.62 K/uL (4.8-10.8) 05/23/18 12:00 RBC 3.93 M/uL (4.2-5.4) L 05/23/18 12:00 Hgb 10.6 g/dL (12.0-16.0) L 05/23/18 12:00 Hct 33.8 % (37-47) L 05/23/18 12:00 MCV 86.0 fL (80-100) 05/23/18 12:00 MCH 27.0 pg (25-34) 05/23/18 12:00 MCHC 31.4 g/dL (32-36) L 05/23/18 12:00 RDW Std Deviation 55.4 fL (36.4-46.3) H 05/23/18 12:00 RDW Coeff of Anthony 17.6 % (11.5-14.5) H 05/23/18 12:00 Plt Count 281 K/uL (130-400) 05/23/18 12:00 MPV 9.0 fL (7.4-10.4) 05/23/18 12:00 Immature Gran % (Auto) 0.1 % 05/23/18 12:00 Neut % (Auto) 77.6 % 05/23/18 12:00 Lymph % (Auto) 12.4 % 05/23/18 12:00 [place] % (Auto) 6.5 % 05/23/18 12:00 Eos % (Auto) 3.2 % 05/23/18 12:00 Baso % (Auto) 0.2 % 05/23/18 12:00 Immature Gran # (Auto) 0.01 K/uL (0.00-0.02) 05/23/18 12:00 Neut # (Auto) 6.68 K/uL (1.4-6.5) H 05/23/18 12:00 Lymph # (Auto) 1.07 K/uL (1.2-3.4) L 05/23/18 12:00 [place] # (Auto) 0.56 K/uL (0.11-0.59) 05/23/18 12:00 Eos # (Auto) 0.28 K/uL (0-0.5) 05/23/18 12:00 Baso # (Auto) 0.02 K/uL (0-0.2) 05/23/18 12:00 PT 10.6 Seconds (9.0-12.0) 05/23/18 12:00 INR 1.0 (0.9-1.1) 05/23/18 12:00 APTT 27.1 Seconds (21.0-31.0) 05/23/18 12:00 PTT Ratio 1.0 05/23/18 12:00 VBG pH 7.39 (7.36-7.41) 05/23/18 12:59 VBG pCO2 42 mmHg (38-50) 05/23/18 12:59 VBG pO2 45 mmHg 05/23/18 12:59 VBG HCO3 25 mmol/L 05/23/18 12:59 VBG O2 Saturation 78.4 % 05/23/18 12:59 VBG Base Excess 0 mEq/L 05/23/18 12:59 Barometric Pressure 736.5 mm/Hg 05/23/18 12:59 Sodium 130 mmol/L (136-145) L 05/23/18 12:00 Potassium 4.9 mmol/L (3.5-5.1) 05/23/18 12:00 Chloride 96 mmol/L (98-107) L 05/23/18 12:00 Carbon Dioxide 26 mmol/L (21-32) 05/23/18 12:00 Anion Gap 7.0 (3-11) 05/23/18 12:00 BUN 54 mg/dl (7-18) H 05/23/18 12:00 Creatinine 1.94 mg/dl (0.6-1.2) H 05/23/18 12:00 Est Cr Clr Drug Dosing 18.0 ml/min 05/23/18 12:00 Est GFR ( Amer) 26.1 05/23/18 12:00 Est GFR (Non-Af Amer) 22.6 05/23/18 12:00 BUN/Creatinine Ratio 27.6 (10-20) H 05/23/18 12:00 Glucose 133 mg/dl (70-99) H 05/23/18 12:00 Calcium 9.0 mg/dl (8.5-10.1) 05/23/18 12:00 Magnesium 2.1 mg/dl (1.8-2.4) 05/23/18 12:00 Total Bilirubin 0.6 mg/dl (0.2-1) 05/23/18 12:00 AST 23 U/L (15-37) 05/23/18 12:00 ALT 31 U/L (12-78) 05/23/18 12:00 Alkaline Phosphatase 92 U/L (45-117) 05/23/18 12:00 Troponin I < 0.015 ng/ml (0-0.045) 05/23/18 12:00 Total Protein 7.0 gm/dl (6.4-8.2) 05/23/18 12:00 Albumin 3.3 gm/dl (3.4-5.0) L 05/23/18 12:00 Globulin 3.7 gm/dl (2.5-4.0) 05/23/18 12:00 Albumin/Globulin Ratio 0.9 (0.9-2) 05/23/18 12:00 Urine Color Yellow 05/23/18 15:15 Urine Appearance Cloudy (Clear) H 05/23/18 15:15 Urine pH 7.5 (4.5-7.5) 05/23/18 15:15 Ur Specific [place] 1.008 (1.000-1.030) 05/23/18 15:15 Urine Protein Trace (Negative) H 05/23/18 15:15 Urine Glucose (UA) Negative (Negative) 05/23/18 15:15 Urine Ketones Negative (Negative) 05/23/18 15:15 Urine Blood Trace (Negative) H 05/23/18 15:15 Urine Nitrite Negative (Negative) 05/23/18 15:15 Urine Bilirubin Negative (Negative) 05/23/18 15:15 Urine Urobilinogen Negative (Negative) 05/23/18 15:15 Ur Leukocyte Esterase 3+ (Negative) H 05/23/18 15:15 Urine WBC (Auto) >30 /hpf (0-5) H 05/23/18 15:15 Urine RBC (Auto) 10-30 /hpf (0-4) H 05/23/18 15:15 U Hyaline Cast (Auto) 5-10 /lpf (0-5) H 05/23/18 15:15 U Epithel Cells (Auto) 0-5 /lpf (0-5) 05/23/18 15:15 Urine Bacteria (Auto) 1+ (Negative) H 05/23/18 15:15 Urine Yeast Not Reportable 05/23/18 15:15 Diagnostic Findings XR chest 1V portable CLINICAL HISTORY: Dyspnea COMPARISON STUDY: Chest CT April 28, 2018. Chest radiograph April 29, 2018. FINDINGS: Left subclavian pacer is noted as well as median sternotomy wires. Cardiomegaly is unchanged. There is no evidence for pulmonary edema. Patient is rotated. There is no pneumothorax. There are trace bilateral pleural effusions. No consolidation is identified. IMPRESSION: 1. Trace bilateral pleural effusions. 2. Cardiomegaly without evidence for pulmonary edema. 3. No consolidation. Medications Administered Discontinued Medications Furosemide (Lasix) 40 mg IV NOW STA Stop: 05/23/18 13:50 Last Admin: 05/23/18 14:04 Dose: 40 mg Documented by: [id number] ECG Rate (beats per minute): 71 Findings: + other (paced rhythm) and + PVC Comparison ECG Date: from (28-APR-2018 09:11) Change: the following changes noted (PVC) Code Status & VTE Plan Code Status DNR VTE Prophylaxis Plan VTE Prophylaxis will be ordered: Yes Supervising Physician Co-Signing Physician Notes Patient seen and examined independently of Dr. Bauer. Agree with history, phy sical exam findings, assessment and plan as documented. in brief, Ms Gil is an 87 year old female with hx of COPD, CHF, afib, CKD, DM, HTN admitted with dyspnea. CXR in ED with trace bilateral effusion. Received IV lasix 40mg and diuresed quite a bit. No supplemental O2 needed. On my exam, she is breathing comfortably and able to speak in full sentences. She has diminished air movement overall, but no wheezing or ronchi. No pedal edema. Labs reviewed. 1. dyspnea, secondary to CHF exacerbation. Continue home bumex, additional lasix as needed for additional diuresis. I/O's, daily weights. 2. COPD, not in exacerbation right now. duonebs QID while awake and q4h PRN. Will revisit whether or not she requires azithro or doxy for exacerbation. Other chronic conditions stable continue home meds. Resident Activity Tracking Resident Involvement: Resident Care Provided Care Provided: Adult Hospital Medicine (1) Dyspnea Dyspnea type: unspecified Qualified Code(s): R06.00 - Dyspnea, unspecified
[2018-05-23] MEDS: CARBOHYDRATES FOR HYPOGLYCEMIA PO PRN (20:00)
[2018-05-23] MEDS: ALBUT/IPRATROP 3MG/0.5MG NEB 3 ML VIAL NEB SCH (20:03)
[2018-05-23] MEDS ORDERED: CARBOHYDRATES FOR HYPOGLYCEMIA PO PRN (20:10)
[2018-05-23] MEDS ORDERED: INSULIN GLARGINE SOLOSTAR 100 UNITS/ML 3 ML PEN SC SCH (21:00)
[2018-05-23] MEDS: METOPROLOL TARTRATE 100 MG TAB PO SCH (21:39)
[2018-05-23] MEDS: DOCUSATE SODIUM 100 MG CAP PO SCH (21:40)
[2018-05-23] MEDS: TOLTERODINE TARTRATE 2 MG TAB PO SCH (21:41)
[2018-05-23] MEDS: HEPARIN SOD 5,000 UNIT/0.5 ML VIAL SQ SCH (21:42)
[2018-05-23] MEDS: OLMESARTAN MEDOXOMIL 20 MG TAB PO SCH (21:43)
[2018-05-23] MEDS: INSULIN ASPART 100 UNITS/ML 3 ML PEN SC SCH (21:51)
[2018-05-23] MEDS: ZOLPIDEM TARTRATE 5 MG TAB PO PRN (21:53)
[2018-05-24] MEDS: LEVOTHYROXINE SODIUM 75 MCG TABLET PO SCH (06:00)
[2018-05-24] MEDS: CARBOHYDRATES FOR HYPOGLYCEMIA PO PRN (06:09)
[2018-05-24 07:19] LABS: Basophils # (auto) 0.01 K/uL (0-0.2); Basophils % (auto) 0.1 %; Eosinophils # (auto) 0.29 K/uL (0-0.5); Eosinophils % (auto) 4.2 %; Immature Granulocytes # (auto) 0.01 K/uL (0.00-0.02); Immature Granulocytes % (auto) 0.1 %; Lymphocytes # (auto) 0.95 K/uL (1.2-3.4); Lymphocytes % (auto) 13.6 %; Mean Corpuscular Hgb Conc 31.3 g/dL (32-36); Mean Corpuscular Volume 86.3 fL (80-100); Mean Platelet Volume 8.1 fL (7.4-10.4); Monocytes # (auto) 0.72 K/uL (0.11-0.59); Monocytes % (auto) 10.3 %; Neutrophils # (auto) 4.99 K/uL (1.4-6.5); Neutrophils % (auto) 71.7 %; Platelet Count 231 K/uL (130-400); RDW Coefficient of Variation 17.9 % (11.5-14.5); RDW Standard Deviation 56.1 fL (36.4-46.3); Red Blood Count 3.71 M/uL (4.2-5.4); White Blood Count 6.97 K/uL (4.8-10.8)
[2018-05-24 08:01] LABS: BUN Creatinine Ratio 28.3 (10-20); Calcium 8.2 mg/dl (8.5-10.1); Creatinine Clr Calc Pharmacy 17.5 ml/min; Est GFR (Non-African American) 22.4; Potassium 4.4 mmol/L (3.5-5.1)
[2018-05-24] MEDS: DOCUSATE SODIUM 100 MG CAP PO SCH ×2 (08:30→20:37)
[2018-05-24] MEDS: PANTOprazole 40 MG TAB PO SCH (08:30)
[2018-05-24] MEDS: LORATADINE 10 MG TAB PO SCH (08:31)
[2018-05-24] MEDS: TOLTERODINE TARTRATE 2 MG TAB PO SCH ×2 (08:31→20:38)
[2018-05-24] MEDS: ASPIRIN 81 MG ECTAB PO SCH (08:31)
[2018-05-24] MEDS: ATORVASTATIN 10 MG TAB PO SCH (08:31)
[2018-05-24] MEDS: METOPROLOL TARTRATE 100 MG TAB PO SCH ×2 (08:31→20:42)
[2018-05-24] MEDS: BUMETANIDE 1 MG TAB PO SCH (08:32)
[2018-05-24] MEDS: HEPARIN SOD 5,000 UNIT/0.5 ML VIAL SQ SCH ×2 (08:34→20:42)
[2018-05-24] MEDS: INSULIN ASPART 100 UNITS/ML 3 ML PEN SC SCH ×4 (08:38→20:42)
[2018-05-24] MEDS: INSULIN GLARGINE SOLOSTAR 100 UNITS/ML 3 ML PEN SC SCH ×2 (08:43→20:51)
[2018-05-24] MEDS ORDERED: ALBUT/IPRATROP 3MG/0.5MG NEB 3 ML VIAL NEB STA (10:25)
[2018-05-24] MEDS ORDERED: FUROSEMIDE 20 MG in SYRINGE 0 ML IV ONE (10:30)
[2018-05-24] MEDS: ESCITALOPRAM OXALATE 10 MG TAB PO SCH (10:55)
[2018-05-24] MEDS: ALBUT/IPRATROP 3MG/0.5MG NEB 3 ML VIAL NEB SCH ×4 (11:02→19:52)
[2018-05-24] MEDS: DOXYCYCLINE HYCLATE 100 MG CAP PO SCH ×2 (11:24→20:38)
--- NOTE | 2018-05-24 11:46 | Family Medicine Progress Note ---
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 likely secondary to CHF exacerbation, although considered COPD as well. Pneumonia less likely given lack of fever, leukocytosis - Admit to med Materia - Daily weights, I/O's - Given IV Lasix 40 mg in ED, Give IV 20 mg Lasix today - Continue PO Bumex at home dose of 1 mg daily - Monitor Cr and K daily while with administration of diuretics - PRN additional IV Lasix if short of breath or new crackles (2) CHF (congestive heart failure): likely in exacerbation Given 40 mg Lasix in ED felt symptomatic improvement despite no obvious signs on CXR of pulm edema Continue Bumex at home dose, add prn LASIX Last Echo 04/2018 mild concentric ventricular hypertrophy LV systolic fxn mild to moderately reduced moderate to severe tricuspid regurgitation, mild to mod tricuspid regurgitation EF 40-45% mod global hypokinesis of LV (3) COPD (chronic obstructive pulmonary disease): does not appear to be in exacerbation no wheezing on exam but does have scattered ronchi, satting well on room air Scheduled/PRN Duonebs, Continue home inhalers no indication for steroids at this time will start doxy based on her reported dyspnea and purulent sputum--should also cover for ?sinusitis as well. follows with Aneudy Muñoz ([facility]) as an outpatient (4) Dizziness: one episode of dizziness likely presyncopal prior to arrival - resolved, not hypotensive on arrival, has pacer - monitor on [employer] (5) CKD (chronic kidney disease), stage III: -Stage IV -Patient had RUE AVF placed recently, not currently in use - Monitor Cr. closely, increased dose of Bumex if needed, add lasix needed - below baseline =2.0-2.3 - Follows with Dr. Urias as outpatient. (6) Atrial fibrillation: permanent, rate controlled asx Continue digoxin Metoprolol tartrate 100 mg BID not on anticoagulation due to previous history of recurrent epistaxis (7) Hypothyroidism (acquired): Continue Levothyroxine (8) DM (diabetes mellitus): ISS Basal 10u BID Due to hyoglycemic event, reduces to 16 u total daily follow BGL ACHS (9) S/P quintuple vessel bypass: negative troponin on arrival chest discomfort with inspiration appears respiratory in origin as opposed to cardiac (10) Hyponatremia: Chronic, within baseline range Continue to monitor daily BMPs (11) Hypertension: BP elevated on arrival Restart home medications including Metoprolol, Benicar (12) GERD (gastroesophageal reflux disease): Continue Lansoprazole (13) DVT prophylaxis: Heparin Supervising Physician Co-Signing Physician Notes Patient seen and examined independently of Dr. Bauer. Agree with history, physical exam findings, assessment and plan as documented. in brief, Ms Gil is an 87 year old female with hx of COPD, CHF, afib, CKD, DM, HTN admitted with dyspnea. Reports that her nasal congestion has gotten a little bit worse, pressure in the frontal sinuses. Coughing up purulent sputum from time to time chronically. Afebrile. VSS reviewed. On my exam, she is breathing comfortably and able to speak in full sentences. She has diminished air movement overall and some scattered, soft ronchi. Trace edema of the left lower extremity. No edema on the right lower extremity. No pedal edema. Labs reviewed. 1. dyspnea, secondary to CHF exacerbation. Continue home bumex, additional lasix as needed for additional diuresis. I/O's, daily weights. 2. COPD, not in exacerbation right now. duonebs QID while awake and q4h PRN. Start doxy for potential bronchitis/mild COPD exacerbation. Does not require steroids at this point as she continues to have fair air movement. 3. sinusitis. doxy 100mg BID. 4. Urinary tract infection. Urine growing E. Coli. Treating with ceftriaxone based on last urine culture and sensitivities. If sensitive to cefuroxime, can be discharged with oral cefuroxime if she has not completed abx course at the time of discharge. Dispo: pending clinical improvement. Subjective No acute events. Patient reports some improvement in SOB. She continues to cough . She reports some LE edema L>R. Additionally she complains of generalized weakness. She denies fever, chills. Constitutional: + fatigue; no fever and no chills Respiratory: + cough and + dyspnea; no wheezing Cardiovascular: no chest pain, no palpitations, no edema and no calf pain Gastrointestinal: no abdominal pain, no nausea, no vomiting and no change in stools Integumentary: no rash and no lesions Neurologic: no localized weakness, no dizziness and no headache(s) Physical Exam Vital Signs (Past 24 Hours): Last Vital Signs Temp 36.5 C 05/24/18 07:41 Pulse 87 05/24/18 11:05 Resp 18 05/24/18 11:05 BP 118/68 05/24/18 10:59 Pulse Ox 93 05/24/18 11:05 Constitutional: WD/WN, vitals as above no acute distress Eyes: PERRL and EOM intact bilaterally ENMT: external ear and nose normal, oropharynx normal Neck: trachea midline, no thyromegaly Respiratory: able to speak in complete sentences; no respiratory distress and no labored breathing Auscultation: + rhonchi; no wheezes Cardiovascular: RRR, no murmur, no edema Gastrointestinal (Abdomen): normal bowel sounds, soft, nontender, no hepatosplenomegaly Skin: no rashes, warm and dry Neurologic: PERRL, EOMI, accommodation nl, no face palsy, no dysarthria CN's II-XI intact bilaterally (grossly) and awake Psychiatric: A+Ox3, euthymic affect Results & Data Laboratory Results Laboratory Results WBC 6.97 K/uL (4.8-10.8) 05/24/18 07:07 RBC 3.71 M/uL (4.2-5.4) L 05/24/18 07:07 Hgb 10.0 g/dL (12.0-16.0) L 05/24/18 07:07 Hct 32.0 % (37-47) L 05/24/18 07:07 MCV 86.3 fL (80-100) 05/24/18 07:07 MCH 27.0 pg (25-34) 05/24/18 07:07 MCHC 31.3 g/dL (32-36) L 05/24/18 07:07 RDW Std Deviation 56.1 fL (36.4-46.3) H 05/24/18 07:07 RDW Coeff of Anthony 17.9 % (11.5-14.5) H 05/24/18 07:07 Plt Count 231 K/uL (130-400) 05/24/18 07:07 MPV 8.1 fL (7.4-10.4) 05/24/18 07:07 Immature Gran % (Auto) 0.1 % 05/24/18 07:07 Neut % (Auto) 71.7 % 05/24/18 07:07 Lymph % (Auto) 13.6 % 05/24/18 07:07 Leon % (Auto) 10.3 % 05/24/18 07:07 Eos % (Auto) 4.2 % 05/24/18 07:07 Baso % (Auto) 0.1 % 05/24/18 07:07 Immature Gran # (Auto) 0.01 K/uL (0.00-0.02) 05/24/18 07:07 Neut # (Auto) 4.99 K/uL (1.4-6.5) 05/24/18 07:07 Lymph # (Auto) 0.95 K/uL (1.2-3.4) L 05/24/18 07:07 Leon # (Auto) 0.72 K/uL (0.11-0.59) H 05/24/18 07:07 Eos # (Auto) 0.29 K/uL (0-0.5) 05/24/18 07:07 Baso # (Auto) 0.01 K/uL (0-0.2) 05/24/18 07:07 PT 10.6 Seconds (9.0-12.0) 05/23/18 12:00 INR 1.0 (0.9-1.1) 05/23/18 12:00 APTT 27.1 Seconds (21.0-31.0) 05/23/18 12:00 PTT Ratio 1.0 05/23/18 12:00 VBG pH 7.39 (7.36-7.41) 05/23/18 12:59 VBG pCO2 42 mmHg (38-50) 05/23/18 12:59 VBG pO2 45 mmHg 05/23/18 12:59 VBG HCO3 25 mmol/L 05/23/18 12:59 VBG O2 Saturation 78.4 % 05/23/18 12:59 VBG Base Excess 0 mEq/L 05/23/18 12:59 Barometric Pressure 736.5 mm/Hg 05/23/18 12:59 Sodium 133 mmol/L (136-145) L 05/24/18 07:07 Potassium 4.4 mmol/L (3.5-5.1) 05/24/18 07:07 Chloride 100 mmol/L (98-107) 05/24/18 07:07 Carbon Dioxide 25 mmol/L (21-32) 05/24/18 07:07 Anion Gap 8.0 (3-11) 05/24/18 07:07 BUN 55 mg/dl (7-18) H 05/24/18 07:07 Creatinine 1.95 mg/dl (0.6-1.2) H 05/24/18 07:07 Est Cr Clr Drug Dosing 17.5 ml/min 05/24/18 07:07 Est GFR ( Amer) 26.0 05/24/18 07:07 Est GFR (Non-Af Amer) 22.4 05/24/18 07:07 BUN/Creatinine Ratio 28.3 (10-20) H 05/24/18 07:07 Glucose 112 mg/dl (70-99) H 05/24/18 07:07 POC Glucose 167 (70-99) H 05/24/18 11:21 Calcium 8.2 mg/dl (8.5-10.1) L 05/24/18 07:07 Magnesium 2.1 mg/dl (1.8-2.4) 05/23/18 12:00 Total Bilirubin 0.6 mg/dl (0.2-1) 05/23/18 12:00 AST 23 U/L (15-37) 05/23/18 12:00 ALT 31 U/L (12-78) 05/23/18 12:00 Alkaline Phosphatase 92 U/L (45-117) 05/23/18 12:00 Troponin I < 0.015 ng/ml (0-0.045) 05/23/18 12:00 Total Protein 7.0 gm/dl (6.4-8.2) 05/23/18 12:00 Albumin 3.3 gm/dl (3.4-5.0) L 05/23/18 12:00 Globulin 3.7 gm/dl (2.5-4.0) 05/23/18 12:00 Albumin/Globulin Ratio 0.9 (0.9-2) 05/23/18 12:00 Urine Color Yellow 05/23/18 15:15 Urine Appearance Cloudy (Clear) H 05/23/18 15:15 Urine pH 7.5 (4.5-7.5) 05/23/18 15:15 Ur Specific [place] 1.008 (1.000-1.030) 05/23/18 15:15 Urine Protein Trace (Negative) H 05/23/18 15:15 Urine Glucose (UA) Negative (Negative) 05/23/18 15:15 Urine Ketones Negative (Negative) 05/23/18 15:15 Urine Blood Trace (Negative) H 05/23/18 15:15 Urine Nitrite Negative (Negative) 05/23/18 15:15 Urine Bilirubin Negative (Negative) 05/23/18 15:15 Urine Urobilinogen Negative (Negative) 05/23/18 15:15 Ur Leukocyte Esterase 3+ (Negative) H 05/23/18 15:15 Urine WBC (Auto) >30 /hpf (0-5) H 05/23/18 15:15 Urine RBC (Auto) 10-30 /hpf (0-4) H 05/23/18 15:15 U Hyaline Cast (Auto) 5-10 /lpf (0-5) H 05/23/18 15:15 U Epithel Cells (Auto) 0-5 /lpf (0-5) 05/23/18 15:15 Urine Bacteria (Auto) 1+ (Negative) H 05/23/18 15:15 Urine Yeast Not Reportable 05/23/18 15:15 Medications Administered Albuterol (Duoneb) 3 ml NEB QIDR [facility] Stop: 06/22/18 19:59 Last Admin: 05/24/18 15:02 Dose: 3 ml Documented by: [id number] Admin: 05/24/18 11:02 Dose: 3 ml Documented by: [id number] Admin: 05/24/18 11:02 Dose: Not Given Documented by: [id number] Admin: 05/23/18 20:03 Dose: 3 ml Documented by: [id number] Aspirin (Ecotrin Ectab) 81 mg PO QAM [facility] Stop: 06/23/18 08:59 Last Admin: 05/24/18 08:31 Dose: 81 mg Documented by: [id number] Atorvastatin Calcium (Lipitor) 10 mg PO QAM ALEX Stop: 06/23/18 08:59 Last Admin: 05/24/18 08:31 Dose: 10 mg Documented by: [id number] Bumetanide (Bumex) 1 mg PO QAM ALEX Stop: 06/23/18 08:59 Last Admin: 05/24/18 08:32 Dose: 1 mg Documented by: [id number] Docusate Sodium (Colace) 100 mg PO BID ALEX Stop: 06/22/18 20:59 Last Admin: 05/24/18 08:30 Dose: 100 mg Documented by: [id number] Admin: 05/23/18 21:40 Dose: 100 mg Documented by: [id number] Doxycycline Hyclate (Vibramycin) 100 mg PO BID ALEX Stop: 05/31/18 09:59 Last Admin: 05/24/18 11:24 Dose: 100 mg Documented by: [id number] Escitalopram Oxalate (Lexapro) 5 mg PO QDL ALEX Stop: 06/23/18 11:29 Last Admin: 05/24/18 10:55 Dose: 5 mg Documented by: [id number] Heparin Sodium (Porcine) (Heparin Sodium (Porcine)) 5,000 units SQ Q12 ALEX Stop: 06/22/18 20:59 Last Admin: 05/24/18 08:34 Dose: 5,000 units Documented by: [id number] Cosigned by: [id number] Admin: 05/23/18 21:42 Dose: 5,000 units Documented by: [id number] Cosigned by: [id number] Ceftriaxone Sodium 1,000 mg/ (Dextrose) 50 mls @ 100 mls/hr IV DAILY ALEX Stop: 05/29/18 12:44 Last Infusion: 05/24/18 14:20 Dose: 0 mls/hr Documented by: [id number] Admin: 05/24/18 13:49 Dose: 100 mls/hr Documented by: [id number] Insulin Aspart (Novolog Flexpen) 0 units SC ACHS ALEX Stop: 06/22/18 20:59 Last Admin: 05/24/18 13:45 Dose: 2 units Documented by: [id number] Cosigned by: [id number] Admin: 05/24/18 08:38 Dose: 1 units Documented by: [id number] Cosigned by: [id number] Admin: 05/23/18 21:51 Dose: Not Given Documented by: [id number] Cosigned by: [id number] Insulin Glargine (Lantus Solostar Pen) 8 units SC Q12H [facility] Stop: 06/23/18 08:59 Last Admin: 05/24/18 08:43 Dose: 8 units Documented by: [id number] Cosigned by: [id number] Levothyroxine Sodium (Synthroid) 75 mcg PO DAILYBB [facility] Stop: 06/23/18 06:29 Last Admin: 05/24/18 06:00 Dose: 75 mcg Documented by: [id number] [facility]atad[facility]) [facility] Stop: 06/23/18 08:59 Last Admin: 05/24/18 08:31 Dose: 10 mg Documented by: [id number] Metoprolol Tartrate (Lopressor) 100 mg PO BID [facility] Stop: 06/22/18 20:59 Last Admin: 05/24/18 08:31 Dose: 100 mg Documented by: [id number] Admin: 05/23/18 21:39 Dose: 100 mg Documented by: [id number] Miscellaneous (Carbohydrates For Hypoglycemia) 15 - 30 gm PO UD PRN PRN Reason: Hypoglycemia Treatment Stop: 06/22/18 17:29 Last Admin: 05/24/18 06:09 Dose: 15 gm Documented by: [id number] Admin: 05/23/18 20:00 Dose: 15 gm Documented by: [id number] Olmesartan (Benicar) 20 mg PO HS [facility] Stop: 06/22/18 20:59 Last Admin: 05/23/18 21:43 Dose: 20 mg Documented by: [id number] Pantoprazole Sodium (Protonix) 40 mg PO QAM [facility] Stop: 06/23/18 08:59 Last Admin: 05/24/18 08:30 Dose: 40 mg Documented by: [id number] Tolterodine Tartrate (Detrol) 2 mg PO BID [facility] Stop: 06/22/18 20:59 Last Admin: 05/24/18 08:31 Dose: 2 mg Documented by: [id number] Admin: 05/23/18 21:41 Dose: 2 mg Documented by: [id number] Zolpidem Tartrate (Ambien) 5 mg PO HS PRN PRN Reason: Insomnia Stop: 06/22/18 20:51 Last Admin: 05/23/18 21:53 Dose: 5 mg Documented by: [id number] Discontinued Medications Albuterol (Duoneb) 3 ml NEB NOW STA Stop: 05/24/18 10:26 Last Admin: 05/24/18 11:08 Dose: Not Given Documented by: [id number] Furosemide (Lasix) 40 mg IV NOW STA Stop: 05/23/18 13:50 Last Admin: 05/23/18 14:04 Dose: 40 mg Documented by: [id number] Furosemide 20 mg/ Syringe 2 mls @ 4 mls/min IV 1030 ONE Stop: 05/24/18 10:31 Last Admin: 05/24/18 10:57 Dose: 4 mls/min Documented by: [id number] Insulin Glargine (Lantus Solostar Pen) 10 units SC Q12H [facility]LEX Stop: 06/22/18 20:59 Last Admin: 05/23/18 21:50 Dose: Not Given Documented by: [id number] Cosigned by: [id number] Resident Activity Tracking Resident Involvement: Resident Care Provided Care Provided: Adult Hospital Medicine (1) Dyspnea Dyspnea type: unspecified Qualified Code(s): R06.00 - Dyspnea, unspecified
[2018-05-24] MEDS: cefTRIAXone SODIUM 1,000 MG in DEXTROSE 5% 50 ML IV SCH (13:49)
[2018-05-24] MEDS: ACETAMINOPHEN 325 MG TAB PO PRN (20:36)
[2018-05-24] MEDS: FLUTICASONE PROPIONATE NA SPR 16 GM BTL SCH (20:39)
[2018-05-24] MEDS: guaiFENesin 600 MG TABCR PO SCH (20:55)
[2018-05-24] MEDS: OLMESARTAN MEDOXOMIL 20 MG TAB PO SCH (21:14)
[2018-05-24] MEDS: DICLOFENAC SOD 1% GEL 100 GM TUBE EXT SCH (22:30)
[2018-05-24] MEDS: ZOLPIDEM TARTRATE 5 MG TAB PO PRN (22:33)
[2018-05-25 06:25] LABS: Basophils # (auto) 0.03 K/uL (0-0.2); Basophils % (auto) 0.3 %; Eosinophils # (auto) 0.34 K/uL (0-0.5); Eosinophils % (auto) 3.9 %; Hematocrit (blood only) 35.5 % (37-47); Hemoglobin 11.1 g/dL (12.0-16.0); Immature Granulocytes # (auto) 0.01 K/uL (0.00-0.02); Immature Granulocytes % (auto) 0.1 %; Lymphocytes # (auto) 2.91 K/uL (1.2-3.4); Mean Corpuscular Hgb Conc 31.3 g/dL (32-36); Mean Corpuscular Volume 86.6 fL (80-100); Mean Platelet Volume 8.6 fL (7.4-10.4); Monocytes # (auto) 0.84 K/uL (0.11-0.59); Monocytes % (auto) 9.5 %; Neutrophils # (auto) 4.68 K/uL (1.4-6.5); Neutrophils % (auto) 53.2 %; Platelet Count 300 K/uL (130-400); RDW Coefficient of Variation 18.1 % (11.5-14.5); RDW Standard Deviation 57.3 fL (36.4-46.3); White Blood Count 8.81 K/uL (4.8-10.8)
[2018-05-25] MEDS: LEVOTHYROXINE SODIUM 75 MCG TABLET PO SCH (06:25)
[2018-05-25] MEDS: CARBOHYDRATES FOR HYPOGLYCEMIA PO PRN (06:39)
[2018-05-25] MEDS: ALBUT/IPRATROP 3MG/0.5MG NEB 3 ML VIAL NEB SCH ×4 (07:20→20:02)
[2018-05-25 07:26] LABS: BUN Creatinine Ratio 25.5 (10-20); Calcium 8.2 mg/dl (8.5-10.1); Creatinine Clr Calc Pharmacy 15.4 ml/min; Est GFR (African American) 22.6; Est GFR (Non-African American) 19.5; Potassium 4.6 mmol/L (3.5-5.1)
[2018-05-25] MEDS: PANTOprazole 40 MG TAB PO SCH (08:22)
[2018-05-25] MEDS: TOLTERODINE TARTRATE 2 MG TAB PO SCH ×2 (08:22→20:57)
[2018-05-25] MEDS: LORATADINE 10 MG TAB PO SCH (08:22)
[2018-05-25] MEDS: ATORVASTATIN 10 MG TAB PO SCH (08:22)
[2018-05-25] MEDS: DOXYCYCLINE HYCLATE 100 MG CAP PO SCH ×2 (08:23→21:01)
[2018-05-25] MEDS: guaiFENesin 600 MG TABCR PO SCH ×2 (08:23→21:00)
[2018-05-25] MEDS: BUMETANIDE 1 MG TAB PO SCH (08:23)
[2018-05-25] MEDS: ASPIRIN 81 MG ECTAB PO SCH (08:23)
[2018-05-25] MEDS: DOCUSATE SODIUM 100 MG CAP PO SCH ×2 (08:23→20:57)
[2018-05-25] MEDS: cefTRIAXone SODIUM 1,000 MG in DEXTROSE 5% 50 ML IV SCH (08:24)
[2018-05-25] MEDS: METOPROLOL TARTRATE 100 MG TAB PO SCH ×2 (08:24→21:00)
[2018-05-25] MEDS: DICLOFENAC SOD 1% GEL 100 GM TUBE EXT SCH ×2 (08:25→21:01)
[2018-05-25] MEDS: FLUTICASONE PROPIONATE NA SPR 16 GM BTL SCH ×2 (08:25→20:57)
[2018-05-25] MEDS: INSULIN ASPART 100 UNITS/ML 3 ML PEN SC SCH ×4 (08:33→21:00)
[2018-05-25] MEDS: INSULIN GLARGINE SOLOSTAR 100 UNITS/ML 3 ML PEN SC SCH ×2 (08:34→20:59)
[2018-05-25] MEDS: HEPARIN SOD 5,000 UNIT/0.5 ML VIAL SQ SCH ×2 (08:35→20:59)
--- NOTE | 2018-05-25 09:38 | Family Medicine Progress Note ---
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 likely secondary to CHF exacerbation, although considered COPD as well. Pneumonia less likely given lack of fever, leukocytosis - Continue Daily weights, I/O's - diuresing well - Continue PO Bumex at home dose of 1 mg daily - Monitor Cr daily while with administration of diuretics - PRN additional IV Lasix (2) CHF (congestive heart failure): likely in exacerbation Given 40 mg Lasix in ED felt symptomatic improvement despite no obvious signs on CXR of pulm edema Continue Bumex at home dose, add prn LASIX Last Echo 04/2018 mild concentric ventricular hypertrophy LV systolic fxn mild to moderately reduced moderate to severe tricuspid regurgitation, mild to mod tricuspid regurgitation EF 40-45% mod global hypokinesis of LV (3) COPD (chronic obstructive pulmonary disease): does not appear to be in exacerbation no wheezing on exam, normal saturation on room air Scheduled/PRN Duonebs, Continue home INH no indication for steroids at this time (4) Dizziness: one episode of dizziness likely presyncopal prior to arrival - resolved, not hypotensive on arrival, has pacer - monitor on [employer] (5) CKD (chronic kidney disease), stage III: -Stage IV -Patient had RUE AVF placed recently, not currently in use - Monitor Cr. closely, increased dose of Bumex if needed, add lasix needed - below baseline =2.0-2.3 - Follows with Dr. Urias as outpatient. (6) Atrial fibrillation: permanent, rate controlled asx Continue digoxin Metoprolol tartrate 100 mg BID not on anticoagulation due to previous history epistaxis (7) Hypothyroidism (acquired): Continue Levothyroxine (8) DM (diabetes mellitus): ISS Basal 10u BID Due to hypoglycemic event, reduces further to 10 u total daily follow BGL ACHS (9) S/P quintuple vessel bypass: negative troponin on arrival chest discomfort with inspiration appears respiratory in origin as opposed to cardiac (10) Hyponatremia: Chronic, within baseline range Continue to monitor daily BMPs (11) Hypertension: Continue home medications including Metoprolol, Benicar (12) GERD (gastroesophageal reflux disease): Continue Lansoprazole (13) Left arm swelling: likely secondary to IV access - Doppler US LUE negative for DVT - Continue to monitor (14) Chronic indwelling Saenz catheter: reportedly was supposed to get saenz changed today in outpatient setting change saenz today (15) DVT prophylaxis: Heparin Supervising Physician Co-Signing Physician Notes Patient seen and examined independently of Dr. Bauer. Agree with history, phys ical exam findings, assessment and plan as documented with the following updates/corrections: in brief, Ms Gil is an 87 year old female with hx of COPD, CHF, afib, CKD, DM, HTN admitted with dyspnea. Today, continues to report left wrist pain and some swelling. Also reports pain in the upper arm on the left. This has been happening since she got the pacer done. She tells us that someone mentioned she might have a clot in the arm and may require an ultrasound for further investigation, but she has not had an ultrasound ordered. Reports improvement in her nasal and sinus congestion today. Afebrile. VSS reviewed. On my exam, she is breathing comfortably and able to speak in full sentences. She has diminished air movement overall and some scattered, soft ronchi. IV in place in the dorsum of the left hand. Mild swelling about the wrist. Nontender. No tenderness, swelling or palpable cord within the upper arm or forearm. No facial edema or flushing appreciated. Trace edema of the left lower extremity. No edema on the right lower extremity. No pedal edema. Labs reviewed. 1. dyspnea, secondary to CHF exacerbation. Continue home bumex, additional lasix as needed for additional diuresis. I/O's, daily weights. 2. COPD, not in florid exacerbation right now. duonebs QID while awake and q4h PRN. Start doxy for potential bronchitis/mild COPD exacerbation. Does not require steroids at this point as she continues to have fair air movement. 3. sinusitis. doxy 100mg BID. 4. Urinary tract infection. Urine growing E. Coli. Treating with ceftriaxone based on last urine culture and sensitivities. If sensitive to cefuroxime, can be discharged with oral cefuroxime if she has not completed abx course at the time of discharge. Of note, she does have a chronic in-dwelling Saenz that will need to be changed either today or tomorrow. 5. Left wrist/arm pain. Will get an small arm board to immobilize the left wrist for now to prevent IV related pain from hand/wrist movement. Continue with warm compresses and topical voltaren. US of left upper extremity is negative for clot. Dispo: pending clinical improvement. Subjective Overnight, patient reports LUE swelling and associated pain. Night float resident ordered voltaren. Patient concerned of "blood clot" in the LUE. SOB improving. no calf pain, no chest pain. Constitutional: + fatigue; no fever and no chills Ear, Nose, Mouth, Throat: + post nasal drip; no sore throat Respiratory: + cough and + dyspnea; no wheezing Cardiovascular: no chest pain and no edema Gastrointestinal: no nausea, no vomiting and no change in bowel habits Genitourinary (Female): no urinary frequency and no urinary urgency Musculoskeletal: + swelling (LUE) Integumentary: no rash and no changing lesions Physical Exam Vital Signs (Past 24 Hours): Last Vital Signs Temp 36.4 C L 05/25/18 07:45 Pulse 74 05/25/18 08:00 Resp 18 05/25/18 07:45 BP 133/72 05/25/18 08:37 Pulse Ox 97 05/25/18 07:45 Constitutional: WD/WN, vitals as above no acute distress Eyes: PERRL and EOM intact bilaterally ENMT: external ear and nose normal, oropharynx normal Neck: trachea midline, no thyromegaly Respiratory: able to speak in complete sentences; no respiratory distress and no labored breathing Auscultation: + rhonchi (improved); no wheezes Cardiovascular: RRR, no murmur, no edema Gastrointestinal (Abdomen): normal bowel sounds, soft, nontender, no hepatosplenomegaly Musculoskeletal: Left forearm, tenderness, minimal edema, no erythema Skin: no rashes, warm and dry Neurologic: PERRL, EOMI, accommodation nl, no face palsy, no dysarthria CN's II-XI intact bilaterally (grossly) and awake Psychiatric: Orientation: alert and oriented x 3 Results & Data Laboratory Results Laboratory Results WBC 8.81 K/uL (4.8-10.8) 05/25/18 06:12 RBC 4.10 M/uL (4.2-5.4) L 05/25/18 06:12 Hgb 11.1 g/dL (12.0-16.0) L 05/25/18 06:12 Hct 35.5 % (37-47) L 05/25/18 06:12 MCV 86.6 fL (80-100) 05/25/18 06:12 MCH 27.1 pg (25-34) 05/25/18 06:12 MCHC 31.3 g/dL (32-36) L 05/25/18 06:12 RDW Std Deviation 57.3 fL (36.4-46.3) H 05/25/18 06:12 RDW Coeff of Anthony 18.1 % (11.5-14.5) H 05/25/18 06:12 Plt Count 300 K/uL (130-400) 05/25/18 06:12 MPV 8.6 fL (7.4-10.4) 05/25/18 06:12 Immature Gran % (Auto) 0.1 % 05/25/18 06:12 Neut % (Auto) 53.2 % 05/25/18 06:12 Lymph % (Auto) 33.0 % 05/25/18 06:12 [place] % (Auto) 9.5 % 05/25/18 06:12 Eos % (Auto) 3.9 % 05/25/18 06:12 Baso % (Auto) 0.3 % 05/25/18 06:12 Immature Gran # (Auto) 0.01 K/uL (0.00-0.02) 05/25/18 06:12 Neut # (Auto) 4.68 K/uL (1.4-6.5) 05/25/18 06:12 Lymph # (Auto) 2.91 K/uL (1.2-3.4) 05/25/18 06:12 [place] # (Auto) 0.84 K/uL (0.11-0.59) H 05/25/18 06:12 Eos # (Auto) 0.34 K/uL (0-0.5) 05/25/18 06:12 Baso # (Auto) 0.03 K/uL (0-0.2) 05/25/18 06:12 PT 10.6 Seconds (9.0-12.0) 05/23/18 12:00 INR 1.0 (0.9-1.1) 05/23/18 12:00 APTT 27.1 Seconds (21.0-31.0) 05/23/18 12:00 PTT Ratio 1.0 05/23/18 12:00 VBG pH 7.39 (7.36-7.41) 05/23/18 12:59 VBG pCO2 42 mmHg (38-50) 05/23/18 12:59 VBG pO2 45 mmHg 05/23/18 12:59 VBG HCO3 25 mmol/L 05/23/18 12:59 VBG O2 Saturation 78.4 % 05/23/18 12:59 VBG Base Excess 0 mEq/L 05/23/18 12:59 Barometric Pressure 736.5 mm/Hg 05/23/18 12:59 Sodium 134 mmol/L (136-145) L 05/25/18 06:12 Potassium 4.6 mmol/L (3.5-5.1) 05/25/18 06:12 Chloride 100 mmol/L (98-107) 05/25/18 06:12 Carbon Dioxide 27 mmol/L (21-32) 05/25/18 06:12 Anion Gap 7.0 (3-11) 05/25/18 06:12 BUN 56 mg/dl (7-18) H 05/25/18 06:12 Creatinine 2.19 mg/dl (0.6-1.2) H 05/25/18 06:12 Est Cr Clr Drug Dosing 15.4 ml/min 05/25/18 06:12 Est GFR ( Amer) 22.6 05/25/18 06:12 Est GFR (Non-Af Amer) 19.5 05/25/18 06:12 BUN/Creatinine Ratio 25.5 (10-20) H 05/25/18 06:12 Glucose 57 mg/dl (70-99) L 05/25/18 06:12 POC Glucose 162 (70-99) H 05/25/18 11:16 Calcium 8.2 mg/dl (8.5-10.1) L 05/25/18 06:12 Magnesium 2.1 mg/dl (1.8-2.4) 05/23/18 12:00 Total Bilirubin 0.6 mg/dl (0.2-1) 05/23/18 12:00 AST 23 U/L (15-37) 05/23/18 12:00 ALT 31 U/L (12-78) 05/23/18 12:00 Alkaline Phosphatase 92 U/L (45-117) 05/23/18 12:00 Troponin I < 0.015 ng/ml (0-0.045) 05/23/18 12:00 Total Protein 7.0 gm/dl (6.4-8.2) 05/23/18 12:00 Albumin 3.3 gm/dl (3.4-5.0) L 05/23/18 12:00 Globulin 3.7 gm/dl (2.5-4.0) 05/23/18 12:00 Albumin/Globulin Ratio 0.9 (0.9-2) 05/23/18 12:00 Urine Color Yellow 05/23/18 15:15 Urine Appearance Cloudy (Clear) H 05/23/18 15:15 Urine pH 7.5 (4.5-7.5) 05/23/18 15:15 Ur Specific [place] 1.008 (1.000-1.030) 05/23/18 15:15 Urine Protein Trace (Negative) H 05/23/18 15:15 Urine Glucose (UA) Negative (Negative) 05/23/18 15:15 Urine Ketones Negative (Negative) 05/23/18 15:15 Urine Blood Trace (Negative) H 05/23/18 15:15 Urine Nitrite Negative (Negative) 05/23/18 15:15 Urine Bilirubin Negative (Negative) 05/23/18 15:15 Urine Urobilinogen Negative (Negative) 05/23/18 15:15 Ur Leukocyte Esterase 3+ (Negative) H 05/23/18 15:15 Urine WBC (Auto) >30 /hpf (0-5) H 05/23/18 15:15 Urine RBC (Auto) 10-30 /hpf (0-4) H 05/23/18 15:15 U Hyaline Cast (Auto) 5-10 /lpf (0-5) H 05/23/18 15:15 U Epithel Cells (Auto) 0-5 /lpf (0-5) 05/23/18 15:15 Urine Bacteria (Auto) 1+ (Negative) H 05/23/18 15:15 Urine Yeast Not Reportable 05/23/18 15:15 Medications Administered Acetaminophen (Tylenol) 650 mg PO Q4H PRN PRN Reason: pain/fever Stop: 06/22/18 17:29 Last Admin: 05/24/18 20:36 Dose: 650 mg Documented by: [id number] Albuterol (Duoneb) 3 ml NEB QIDR [facility] Stop: 06/22/18 19:59 Last Admin: 05/25/18 15:03 Dose: 3 ml Documented by: [id number] Admin: 05/25/18 11:14 Dose: 3 ml Documented by: [id number] Admin: 05/25/18 07:20 Dose: 3 ml Documented by: [id number] Admin: 05/24/18 19:52 Dose: 3 ml Documented by: [id number] Admin: 05/24/18 15:02 Dose: 3 ml Documented by: [id number] Admin: 05/24/18 11:02 Dose: 3 ml Documented by: [id number] Admin: 05/24/18 11:02 Dose: Not Given Documented by: [id number] Admin: 05/23/18 20:03 Dose: 3 ml Documented by: [id number] Aspirin (Ecotrin Ectab) 81 mg PO [facility] Stop: 06/23/18 08:59 Last Admin: 05/25/18 08:23 Dose: 81 mg Documented by: [id number] Admin: 05/24/18 08:31 Dose: 81 mg Documented by: [id number] Atorvastatin Calcium (Lipitor) 10 mg PO [facility] Stop: 06/23/18 08:59 Last Admin: 05/25/18 08:22 Dose: 10 mg Documented by: [id number] Admin: 05/24/18 08:31 Dose: 10 mg Documented by: [id number] Bumetanide (Bumex) 1 mg PO [facility] Stop: 06/23/18 08:59 Last Admin: 05/25/18 08:23 Dose: 1 mg Documented by: [id number] Admin: 05/24/18 08:32 Dose: 1 mg Documented by: [id number] Diclofenac Sodium (Voltaren 1% Top) 1 appln EXT BID [facility] Stop: 06/23/18 21:59 Last Admin: 05/25/18 08:25 Dose: 1 appln Documented by: [id number] Admin: 05/24/18 22:30 Dose: 1 appln Documented by: [id number] Docusate Sodium (Colace) 100 mg PO BID [facility] Stop: 06/22/18 20:59 Last Admin: 05/25/18 08:23 Dose: 100 mg Documented by: [id number] Admin: 05/24/18 20:37 Dose: 100 mg Documented by: [id number] Admin: 05/24/18 08:30 Dose: 100 mg Documented by: [id number] Admin: 05/23/18 21:40 Dose: 100 mg Documented by: [id number] Doxycycline Hyclate (Vibramycin) 100 mg PO BID [facility] Stop: 05/31/18 09:59 Last Admin: 05/25/18 08:23 Dose: 100 mg Documented by: [id number] Admin: 05/24/18 20:38 Dose: 100 mg Documented by: [id number] Admin: 05/24/18 11:24 Dose: 100 mg Documented by: [id number] Escitalopram Oxalate (Lexapro) 5 mg PO QDL [facility] Stop: 06/23/18 11:29 Last Admin: 05/25/18 11:59 Dose: 5 mg Documented by: [id number] Admin: 05/24/18 10:55 Dose: 5 mg Documented by: [id number] Fluticasone Propionate (Flonase) 2 sprays NA BID [facility] Stop: 06/23/18 20:59 Last Admin: 05/25/18 08:25 Dose: 2 sprays Documented by: [id number] Admin: 05/24/18 20:39 Dose: 2 sprays Documented by: [id number] Guaifenesin (Mucinex) 600 mg PO Q12 [facility] Stop: 06/23/18 20:59 Last Admin: 05/25/18 08:23 Dose: 600 mg Documented by: [id number] Admin: 05/24/18 20:55 Dose: 600 mg Documented by: [id number] Heparin Sodium (Porcine) (Heparin Sodium (Porcine)) 5,000 units SQ Q12 [facility] Stop: 06/22/18 20:59 Last Admin: 05/25/18 08:35 Dose: 5,000 units Documented by: [id number] Cosigned by: [id number] Admin: 05/24/18 20:42 Dose: 5,000 units Documented by: [id number] Cosigned by: [id number] Admin: 05/24/18 08:34 Dose: 5,000 units Documented by: [id number] Cosigned by: [id number] Admin: 05/23/18 21:42 Dose: 5,000 units Documented by: [id number] Cosigned by: [id number] Ceftriaxone Sodium 1,000 mg/ (Dextrose) 50 mls @ 100 mls/hr IV DAILY [facility] Stop: 05/29/18 12:44 Last Infusion: 05/25/18 08:55 Dose: 0 mls/hr Documented by: [id number] Admin: 05/25/18 08:24 Dose: 100 mls/hr Documented by: [id number] Infusion: 05/24/18 14:20 Dose: 0 mls/hr Documented by: [id number] Admin: 05/24/18 13:49 Dose: 100 mls/hr Documented by: [id number] Insulin Aspart (Novolog Flexpen) 0 units SC ACHS [facility] Stop: 06/22/18 20:59 Last Admin: 05/25/18 12:30 Dose: 3 units Documented by: [id number] Cosigned by: [id number] Admin: 05/25/18 08:33 Dose: Not Given Documented by: [id number] Cosigned by: [id number] Admin: 05/24/18 20:42 Dose: 2 units Documented by: [id number] Cosigned by: [id number] Admin: 05/24/18 17:28 Dose: 1 units Documented by: [id number] Cosigned by: [id number] Admin: 05/24/18 13:45 Dose: 2 units Documented by: [id number] Cosigned by: [id number] Admin: 05/24/18 08:38 Dose: 1 units Documented by: [id number] Cosigned by: [id number] Admin: 05/23/18 21:51 Dose: Not Given Documented by: [id number] Cosigned by: [id number] Levothyroxine Sodium (Synthroid) 75 mcg PO DAILYBB [facility] Stop: 06/23/18 06:29 Last Admin: 05/25/18 06:25 Dose: 75 mcg Documented by: [id number] Admin: 05/24/18 06:00 Dose: 75 mcg Documented by: [id number] Loratadine (Claritin) 10 mg PO QAM [facility] Stop: 06/23/18 08:59 Last Admin: 05/25/18 08:22 Dose: 10 mg Documented by: [id number] Admin: 05/24/18 08:31 Dose: 10 mg Documented by: [id number] Metoprolol Tartrate (Lopressor) 100 mg PO BID [facility] Stop: 06/22/18 20:59 Last Admin: 05/25/18 08:24 Dose: 100 mg Documented by: [id number] Admin: 05/24/18 20:42 Dose: 100 mg Documented by: [id number] Admin: 05/24/18 08:31 Dose: 100 mg Documented by: [id number] Admin: 05/23/18 21:39 Dose: 100 mg Documented by: [id number] Miscellaneous (Carbohydrates For Hypoglycemia) 15 - 30 gm PO UD PRN PRN Reason: Hypoglycemia Treatment Stop: 06/22/18 17:29 Last Admin: 05/25/18 06:39 Dose: 15 gm Documented by: [id number] Admin: 05/24/18 06:09 Dose: 15 gm Documented by: [id number] Admin: 05/23/18 20:00 Dose: 15 gm Documented by: [id number] Olmesartan (Benicar) 20 mg PO HS [facility] Stop: 06/22/18 20:59 Last Admin: 05/24/18 21:14 Dose: Not Given Documented by: [id number] Admin: 05/23/18 21:43 Dose: 20 mg Documented by: [id number] Pantoprazole Sodium (Protonix) 40 mg PO QAM [facility] Stop: 06/23/18 08:59 Last Admin: 05/25/18 08:22 Dose: 40 mg Documented by: [id number] Admin: 05/24/18 08:30 Dose: 40 mg Documented by: [id number] Tolterodine Tartrate (Detrol) 2 mg PO BID [facility] Stop: 06/22/18 20:59 Last Admin: 05/25/18 08:22 Dose: 2 mg Documented by: [id number] Admin: 05/24/18 20:38 Dose: 2 mg Documented by: [id number] Admin: 05/24/18 08:31 Dose: 2 mg Documented by: [id number] Admin: 05/23/18 21:41 Dose: 2 mg Documented by: [id number] Zolpidem Tartrate (Ambien) 5 mg PO HS PRN PRN Reason: Insomnia Stop: 06/22/18 20:51 Last Admin: 05/24/18 22:33 Dose: 5 mg Documented by: [id number] Admin: 05/23/18 21:53 Dose: 5 mg Documented by: [id number] Discontinued Medications Albuterol (Duoneb) 3 ml NEB NOW STA Stop: 05/24/18 10:26 Last Admin: 05/24/18 11:08 Dose: Not Given Documented by: [id number] Furosemide (Lasix) 40 mg IV NOW STA Stop: 05/23/18 13:50 Last Admin: 05/23/18 14:04 Dose: 40 mg Documented by: [id number] Furosemide 20 mg/ Syringe 2 mls @ 4 mls/min IV 1030 ONE Stop: 05/24/18 10:31 Last Admin: 05/24/18 10:57 Dose: 4 mls/min Documented by: [id number] Insulin Glargine (Lantus Solostar Pen) 10 units SC Q12H [facility] Stop: 06/22/18 20:59 Last Admin: 05/23/18 21:50 Dose: Not Given Documented by: [id number] Cosigned by: [id number] Insulin Glargine (Lantus Solostar Pen) 8 units SC Q12H [facility] Stop: 06/23/18 08:59 Last Admin: 05/25/18 08:34 Dose: 8 units Documented by: [id number] Cosigned by: [id number] Admin: 05/24/18 20:51 Dose: 8 units Documented by: [id number] Cosigned by: [id number] Admin: 05/24/18 08:43 Dose: 8 units Documented by: [id number] Cosigned by: [id number] (1) Dyspnea Dyspnea type: unspecified Qualified Code(s): R06.00 - Dyspnea, unspecified
[2018-05-25] MEDS: ESCITALOPRAM OXALATE 10 MG TAB PO SCH (11:59)
--- NOTE | 2018-05-25 14:10 | Ultrasound Report ---
US venous doppler UE LT HISTORY: 87 years-old Female LUE pain, swelling acute pain and swelling of the left upper extremity COMPARISON: None available TECHNIQUE: Images of the left upper extremity deep venous structures were obtained assessing grayscal e appearance, color and spectral flow FINDINGS: Normal flow, compressibility, phasicity and augmentation of the left upper extremity deep venous stru ctures. IMPRESSION: No sonographic evidence of deep venous thrombosis. The above report was generated using voice recognition software. It may contain grammatical, syntax o r spelling errors. Electronically signed by: Ernesto Mitchell M.D. 05/25/2018 2:08 PM
[2018-05-25] MEDS: OLMESARTAN MEDOXOMIL 20 MG TAB PO SCH (20:57)
[2018-05-25] MEDS: ZOLPIDEM TARTRATE 5 MG TAB PO PRN (22:30)
[2018-05-26] MEDS: LEVOTHYROXINE SODIUM 75 MCG TABLET PO SCH (05:55)
[2018-05-26 06:51] LABS: Basophils # (auto) 0.03 K/uL (0-0.2); Basophils % (auto) 0.5 %; Eosinophils # (auto) 0.33 K/uL (0-0.5); Eosinophils % (auto) 5.1 %; Hematocrit (blood only) 32.3 % (37-47); Immature Granulocytes # (auto) 0.01 K/uL (0.00-0.02); Immature Granulocytes % (auto) 0.2 %; Lymphocytes # (auto) 1.61 K/uL (1.2-3.4); Lymphocytes % (auto) 24.8 %; Mean Corpuscular Volume 87.1 fL (80-100); Mean Platelet Volume 8.5 fL (7.4-10.4); Monocytes # (auto) 0.79 K/uL (0.11-0.59); Monocytes % (auto) 12.2 %; Neutrophils # (auto) 3.73 K/uL (1.4-6.5); Neutrophils % (auto) 57.2 %; Platelet Count 239 K/uL (130-400); RDW Coefficient of Variation 17.7 % (11.5-14.5); RDW Standard Deviation 56.2 fL (36.4-46.3); Red Blood Count 3.71 M/uL (4.2-5.4)
[2018-05-26] MEDS: ALBUT/IPRATROP 3MG/0.5MG NEB 3 ML VIAL NEB SCH ×4 (07:00→19:40)
[2018-05-26 07:17] LABS: BUN Creatinine Ratio 25.5 (10-20); Creatinine Clr Calc Pharmacy 14.9 ml/min; Est GFR (African American) 21.4; Est GFR (Non-African American) 18.5; Potassium 4.8 mmol/L (3.5-5.1)
[2018-05-26] MEDS: PANTOprazole 40 MG TAB PO SCH (08:24)
[2018-05-26] MEDS: DOXYCYCLINE HYCLATE 100 MG CAP PO SCH ×2 (08:24→20:02)
[2018-05-26] MEDS: BUMETANIDE 1 MG TAB PO SCH (08:24)
[2018-05-26] MEDS: HEPARIN SOD 5,000 UNIT/0.5 ML VIAL SQ SCH ×2 (08:25→20:07)
[2018-05-26] MEDS: ATORVASTATIN 10 MG TAB PO SCH (08:26)
[2018-05-26] MEDS: ASPIRIN 81 MG ECTAB PO SCH (08:26)
[2018-05-26] MEDS: FLUTICASONE PROPIONATE NA SPR 16 GM BTL SCH ×2 (08:26→20:05)
[2018-05-26] MEDS: DOCUSATE SODIUM 100 MG CAP PO SCH ×2 (08:27→20:03)
[2018-05-26] MEDS: METOPROLOL TARTRATE 100 MG TAB PO SCH ×2 (08:27→20:04)
[2018-05-26] MEDS: TOLTERODINE TARTRATE 2 MG TAB PO SCH ×2 (08:27→20:03)
[2018-05-26] MEDS: LORATADINE 10 MG TAB PO SCH (08:27)
[2018-05-26] MEDS: INSULIN ASPART 100 UNITS/ML 3 ML PEN SC SCH ×4 (08:28→20:07)
[2018-05-26] MEDS: guaiFENesin 600 MG TABCR PO SCH ×2 (08:29→20:03)
[2018-05-26] MEDS: cefTRIAXone SODIUM 1,000 MG in DEXTROSE 5% 50 ML IV SCH (08:29)
[2018-05-26] MEDS: DICLOFENAC SOD 1% GEL 100 GM TUBE EXT SCH ×3 (08:49→20:04)
[2018-05-26] MEDS: ESCITALOPRAM OXALATE 10 MG TAB PO SCH (12:13)
--- NOTE | 2018-05-26 15:39 | Family Medicine Progress Note ---
Date of Service May 26, 2018 Assessment & Plan (1) Shortness of breath: 87-year-old female was admitted on 23 May 2018 for worsening shortness of breath. Shortness of breath, CHF exacerbation: PMH combined systolic and diastolic CHF. Receiving as needed doses of Lasix. TTE in April 2018 notes mild concentric LVH, EF 40-45%, moderate global LV hypokinesis, and some valvular disease (see full report). pCXR notes trace bilateral effusions without consolidation. Continuing her home Bumex 1 mg qAM. Monitoring daily weights as well as I/Os. COPD: PMH same. Do not presently suspect a severe exacerbation. Is on scheduled duo nebs as well as prn. She is not on steroids. Mar started doxycycline for potential bronchitis/mild exacerbation. Of note, patient does not use oxygen at home. She is followed by Aneudy Muñoz of pulmonology as an outpatient. Sinusitis: Reported purulent sputum. Is on doxycycline twice daily. Also on Flonase and Claritin. Urinary tract infection: UCx growing MDR E. coli. started ceftriaxone. Consider discharge on oral cefuroxime (sensitive to this). Her chronic indwelling was changed out on . Left wrist/arm pain: venous ultrasound of the left upper extremity noted no evidence of DVT. Treated with warm compresses and topical Voltaren. Per son, she may have some arthritis and has had some outpatient therapy for this. Anemia: Admit Hb 10.6, has remained stable around there. Baseline is perhaps in the Hb 11's. No evidence of acute bleeding. Monitoring. Mild oral pharyngeal dysphasia: As noted by speech therapy evaluation back in April 2018. Recommended mechanical soft diet, thin liquids. Strict aspiration and GERD precautions. Hyponatremia: Admit Na 130, since in 130s. Monitoring. Ongoing medical issues: - Hypertension, CAD, four-vessel bypass CABG in 2006: On metoprolol and olmesartan. - Hyperlipidemia: On atorvastatin. - Permanent A. fib, dual-chamber pacemaker: On digoxin and metoprolol. - Excessive epistaxis: Listed reason why she is not on anticoagulation for her A. fib. - Severe pulmonary hypertension. - Diabetes type 2: On Lantus as well as sliding scale. - Hypothyroidism: On levothyroxine. - CKD stage IV: Admit Cr 1.94, since stabilized to around her baseline. Monitoring. Has a right upper extremity fistula in place but apparently has not yet needed to use it. - GERD: On Protonix. - Anxiety/depression: On lexapro. Code status: DO NOT RESUSCITATE Diet: DM 2, renal dialysis, texture of minced and moist. DVT prophy: Heparin 5000 units every 12 hours. PT/OT: Pending. Disbo: Admitted to [facility] with telemetry. Patient says she lives at [facility] possible eventual discharge to [facility]. - Updated son (Luis Alberto Gil, ) this afternoon on the phone. (2) CHF (congestive heart failure): (3) COPD (chronic obstructive pulmonary disease): (4) Sinusitis: (5) UTI (urinary tract infection): (6) Left arm swelling: (7) Anemia: (8) Dysphagia: (9) Hypertension: (10) Hyperlipidemia: (11) Atrial fibrillation: (12) Epistaxis: (13) Pulmonary hypertension: (14) DM (diabetes mellitus): (15) Hypothyroidism (acquired): (16) S/P quintuple vessel bypass: (17) Chronic kidney disease: (18) GERD (gastroesophageal reflux disease): (19) Depression: (20) Anxiety: (21) Hyponatremia: Supervising Physician Co-Signing Physician Notes Patient seen and examined with the resident. Agree with history, physical exam, assessment and plan with the following updates/corrections: 87yo F w/ hx of afib who presents with shortness of breath; now resolved. Toda, she feels well. No further shortness of breath. Reports some left arm pain from possible hematoma from prior needle sticks from last hospitalization. Otherwise, notes some mild nausea. 1) Shortness of breath - Treated as mild CHF exacerbation; will continue to monitor, but at this point, has resolved. 2) Nausea - Mild, transient. Reports this is an ongoing issue, and will treat sy mptomatically. 3) Left arm swelling/pain - Possible, mild hematoma in the left forearm from blood draws. She is treating with diclofenac gel and warm pad. Improving Subjective Found patient sitting up in bed, conversing quite pleasantly. She says overall that her breathing does not feel quite at baseline but overall she feels much improved. She says she has some ongoing nausea. Her left arm still feels sore and she wonders if it is swollen. She also says she has not walked at all since Saturday and would like to do so. Otherwise she denied any other acute concerns. Physical Exam Vital Signs (Past 24 Hours): Last Vital Signs Temp 36.8 C 05/26/18 15:00 Pulse 73 05/26/18 15:00 Resp 16 05/26/18 15:00 BP 109/61 05/26/18 15:00 Pulse Ox 97 05/26/18 15:00 Physical Exam: General Appearance: Awake, alert & oriented, speaking in full sentences, comfortable in general, NAD. CV: +S1S2 RRR, no murmur. Right upper extremity AV fistula in place. Pulm: Clear to auscultation throughout. Abdomen: +BS, soft, non-tender, non-distended. Extremities: No pedal edema or calf tenderness. Moving all extremities naturally and easily. There is some mild soft tissue swelling of the distal left wrist with no obvious underlying hematoma. Neuro: No gross neuro deficits. Results & Data Laboratory Results Laboratory Results WBC 6.50 K/uL (4.8-10.8) 05/26/18 06:35 RBC 3.71 M/uL (4.2-5.4) L 05/26/18 06:35 Hgb 10.0 g/dL (12.0-16.0) L 05/26/18 06:35 Hct 32.3 % (37-47) L 05/26/18 06:35 MCV 87.1 fL (80-100) 05/26/18 06:35 MCH 27.0 pg (25-34) 05/26/18 06:35 MCHC 31.0 g/dL (32-36) L 05/26/18 06:35 RDW Std Deviation 56.2 fL (36.4-46.3) H 05/26/18 06:35 RDW Coeff of Anthony 17.7 % (11.5-14.5) H 05/26/18 06:35 Plt Count 239 K/uL (130-400) 05/26/18 06:35 MPV 8.5 fL (7.4-10.4) 05/26/18 06:35 Immature Gran % (Auto) 0.2 % 05/26/18 06:35 Neut % (Auto) 57.2 % 05/26/18 06:35 Lymph % (Auto) 24.8 % 05/26/18 06:35 [place] % (Auto) 12.2 % 05/26/18 06:35 Eos % (Auto) 5.1 % 05/26/18 06:35 Baso % (Auto) 0.5 % 05/26/18 06:35 Immature Gran # (Auto) 0.01 K/uL (0.00-0.02) 05/26/18 06:35 Neut # (Auto) 3.73 K/uL (1.4-6.5) 05/26/18 06:35 Lymph # (Auto) 1.61 K/uL (1.2-3.4) 05/26/18 06:35 [place] # (Auto) 0.79 K/uL (0.11-0.59) H 05/26/18 06:35 Eos # (Auto) 0.33 K/uL (0-0.5) 05/26/18 06:35 Baso # (Auto) 0.03 K/uL (0-0.2) 05/26/18 06:35 PT 10.6 Seconds (9.0-12.0) 05/23/18 12:00 INR 1.0 (0.9-1.1) 05/23/18 12:00 APTT 27.1 Seconds (21.0-31.0) 05/23/18 12:00 PTT Ratio 1.0 05/23/18 12:00 VBG pH 7.39 (7.36-7.41) 05/23/18 12:59 VBG pCO2 42 mmHg (38-50) 05/23/18 12:59 VBG pO2 45 mmHg 05/23/18 12:59 VBG HCO3 25 mmol/L 05/23/18 12:59 VBG O2 Saturation 78.4 % 05/23/18 12:59 VBG Base Excess 0 mEq/L 05/23/18 12:59 Barometric Pressure 736.5 mm/Hg 05/23/18 12:59 Sodium 130 mmol/L (136-145) L 05/26/18 06:35 Potassium 4.8 mmol/L (3.5-5.1) 05/26/18 06:35 Chloride 96 mmol/L (98-107) L 05/26/18 06:35 Carbon Dioxide 26 mmol/L (21-32) 05/26/18 06:35 Anion Gap 8.0 (3-11) 05/26/18 06:35 BUN 58 mg/dl (7-18) H 05/26/18 06:35 Creatinine 2.29 mg/dl (0.6-1.2) H 05/26/18 06:35 Est Cr Clr Drug Dosing 14.9 ml/min 05/26/18 06:35 Est GFR ( Amer) 21.4 05/26/18 06:35 Est GFR (Non-Af Amer) 18.5 05/26/18 06:35 BUN/Creatinine Ratio 25.5 (10-20) H 05/26/18 06:35 Glucose 137 mg/dl (70-99) H 05/26/18 06:35 POC Glucose 140 (70-99) H 05/26/18 16:37 Calcium 8.0 mg/dl (8.5-10.1) L 05/26/18 06:35 Magnesium 2.1 mg/dl (1.8-2.4) 05/23/18 12:00 Total Bilirubin 0.6 mg/dl (0.2-1) 05/23/18 12:00 AST 23 U/L (15-37) 05/23/18 12:00 ALT 31 U/L (12-78) 05/23/18 12:00 Alkaline Phosphatase 92 U/L (45-117) 05/23/18 12:00 Troponin I < 0.015 ng/ml (0-0.045) 05/23/18 12:00 Total Protein 7.0 gm/dl (6.4-8.2) 05/23/18 12:00 Albumin 3.3 gm/dl (3.4-5.0) L 05/23/18 12:00 Globulin 3.7 gm/dl (2.5-4.0) 05/23/18 12:00 Albumin/Globulin Ratio 0.9 (0.9-2) 05/23/18 12:00 Urine Color Yellow 05/23/18 15:15 Urine Appearance Cloudy (Clear) H 05/23/18 15:15 Urine pH 7.5 (4.5-7.5) 05/23/18 15:15 Ur Specific [place] 1.008 (1.000-1.030) 05/23/18 15:15 Urine Protein Trace (Negative) H 05/23/18 15:15 Urine Glucose (UA) Negative (Negative) 05/23/18 15:15 Urine Ketones Negative (Negative) 05/23/18 15:15 Urine Blood Trace (Negative) H 05/23/18 15:15 Urine Nitrite Negative (Negative) 05/23/18 15:15 Urine Bilirubin Negative (Negative) 05/23/18 15:15 Urine Urobilinogen Negative (Negative) 05/23/18 15:15 Ur Leukocyte Esterase 3+ (Negative) H 05/23/18 15:15 Urine WBC (Auto) >30 /hpf (0-5) H 05/23/18 15:15 Urine RBC (Auto) 10-30 /hpf (0-4) H 05/23/18 15:15 U Hyaline Cast (Auto) 5-10 /lpf (0-5) H 05/23/18 15:15 U Epithel Cells (Auto) 0-5 /lpf (0-5) 05/23/18 15:15 Urine Bacteria (Auto) 1+ (Negative) H 05/23/18 15:15 Urine Yeast Not Reportable 05/23/18 15:15 Medications Administered Current Inpatient Medications Acetaminophen (Tylenol) 650 mg PO Q4H PRN PRN Reason: pain/fever Stop: 06/22/18 17:29 Last Admin: 05/24/18 20:36 Dose: 650 mg Documented by: Albuterol (Duoneb) 3 ml NEB QIDR [facility] Stop: 06/22/18 19:59 Last Admin: 05/26/18 15:01 Dose: 3 ml Documented by: Aspirin (Ecotrin Ectab) 81 mg PO [facility] Stop: 06/23/18 08:59 Last Admin: 05/26/18 08:26 Dose: 81 mg Documented by: Atorvastatin Calcium (Lipitor) 10 mg PO [facility] Stop: 06/23/18 08:59 Last Admin: 05/26/18 08:26 Dose: 10 mg Documented by: Bumetanide (Bumex) 1 mg PO [facility] Stop: 06/23/18 08:59 Last Admin: 05/26/18 08:24 Dose: 1 mg Documented by: Dextrose (Dextrose 50%) 25 - 50 ml IV UD PRN; Protocol PRN Reason: Hypoglycemia Protocol Stop: 06/22/18 17:29 Diclofenac Sodium (Voltaren 1% Top) 1 appln EXT TID [facility] Stop: 06/24/18 20:59 Last Admin: 05/26/18 14:13 Dose: 1 appln Documented by: Digoxin (Lanoxin) 0.125 mg PO [id number]@[id number] [facility] Stop: 06/25/18 15:59 Last Admin: 05/26/18 17:12 Dose: 0.125 mg Documented by: Docusate Sodium (Colace) 100 mg PO BID [facility] Stop: 06/22/18 20:59 Last Admin: 05/26/18 08:27 Dose: 100 mg Documented by: Doxycycline Hyclate (Vibramycin) 100 mg PO BID [facility] Stop: 05/31/18 09:59 Last Admin: 05/26/18 08:24 Dose: 100 mg Documented by: Escitalopram Oxalate (Lexapro) 5 mg PO QDL [facility] Stop: 06/23/18 11:29 Last Admin: 05/26/18 12:13 Dose: 5 mg Documented by: Fluticasone Propionate (Flonase) 2 sprays NA BID [facility] Stop: 06/23/18 20:59 Last Admin: 05/26/18 08:26 Dose: 2 sprays Documented by: Glucagon (Glucagen) 1 mg SQ UD PRN; Protocol PRN Reason: Hypoglycemia Protocol Stop: 06/22/18 17:29 Glucose (Glucose 40%) 15 - 30 gm PO UD PRN; Protocol PRN Reason: Hypoglycemia Protocol Stop: 06/22/18 17:29 Glucose (Dex4 Glucose) 4 - 8 tabs PO UD PRN; Protocol PRN Reason: Hypoglycemia Protocol Stop: 06/22/18 17:29 Guaifenesin (Mucinex) 600 mg PO Q12 [facility] Stop: 06/23/18 20:59 Last Admin: 05/26/18 08:29 Dose: 600 mg Documented by: Heparin Sodium (Porcine) (Heparin Sodium (Porcine)) 5,000 units SQ Q12 [facility] Stop: 06/22/18 20:59 Last Admin: 05/26/18 08:25 Dose: 5,000 units Documented by: Ceftriaxone Sodium 1,000 mg/ (Dextrose) 50 mls @ 100 mls/hr IV DAILY [facility] Stop: 05/29/18 12:44 Last Infusion: 05/26/18 08:59 Dose: Infused Documented by: Insulin Aspart (Novolog Flexpen) 0 units SC [facility] Stop: 06/22/18 20:59 Last Admin: 05/26/18 17:13 Dose: Not Given Documented by: Insulin Glargine (Lantus Solostar Pen) 10 units SC [facility] Stop: 06/24/18 20:59 Last Admin: 05/25/18 20:59 Dose: 10 units Documented by: [facility]othy[facility]ine [facility] ([facility]) [facility]: 06/23/18 06:29 Last Admin: 05/26/18 05:55 Dose: 75 mcg Documented by: Loratadine (Claritin) 10 mg PO [facility] Stop: 06/23/18 08:59 Last Admin: 05/26/18 08:27 Dose: 10 mg Documented by: Metoprolol Tartrate (Lopressor) 100 mg PO BID [facility] Stop: 06/22/18 20:59 Last Admin: 05/26/18 08:27 Dose: 100 mg Documented by: Miscellaneous (Carbohydrates For Hypoglycemia) 15 - 30 gm PO UD PRN PRN Reason: Hypoglycemia Treatment Stop: 06/22/18 17:29 Last Admin: 05/25/18 06:39 Dose: 15 gm Documented by: Olmesartan (Benicar) 20 mg PO [facility] Stop: 06/22/18 20:59 Last Admin: 05/25/18 20:57 Dose: 20 mg Documented by: Ondansetron HCl (Zofran) 4 mg IV Q6H PRN PRN Reason: Nausea Stop: 06/22/18 17:29 Pantoprazole Sodium (Protonix) 40 mg PO [facility] Stop: 06/23/18 08:59 Last Admin: 05/26/18 08:24 Dose: 40 mg Documented by: Polyethylene Glycol (Miralax Powder Packet) 17 gm PO DAILY PRN PRN Reason: Constipation Stop: 06/22/18 17:29 Last Admin: 05/26/18 00:18 Dose: 17 gm Documented by: Tolterodine Tartrate (Detrol) 2 mg PO BID [facility] Stop: 06/22/18 20:59 Last Admin: 05/26/18 08:27 Dose: 2 mg Documented by: Zolpidem Tartrate (Ambien) 5 mg PO HS PRN PRN Reason: Insomnia Stop: 06/22/18 20:51 Last Admin: 05/25/18 22:30 Dose: 5 mg Documented by: Resident Activity Tracking Resident Involvement: Resident Care Provided Care Provided: Adult Hospital Medicine
[2018-05-26] MEDS ORDERED: DIGOXIN 0.125 MG TAB PO SCH (16:00)
[2018-05-26] MEDS: ACETAMINOPHEN 325 MG TAB PO PRN (18:10)
[2018-05-26] MEDS ORDERED: ACETAMINOPHEN 325 MG TAB PO ONE (19:59)
[2018-05-26] MEDS: OLMESARTAN MEDOXOMIL 20 MG TAB PO SCH (20:02)
[2018-05-26] MEDS: INSULIN GLARGINE SOLOSTAR 100 UNITS/ML 3 ML PEN SC SCH (20:08)
[2018-05-26] MEDS: ZOLPIDEM TARTRATE 5 MG TAB PO PRN (22:24)
[2018-05-27] MEDS: LEVOTHYROXINE SODIUM 75 MCG TABLET PO SCH (06:09)
[2018-05-27] MEDS: ALBUT/IPRATROP 3MG/0.5MG NEB 3 ML VIAL NEB SCH ×4 (07:17→19:30)
[2018-05-27] MEDS: TOLTERODINE TARTRATE 2 MG TAB PO SCH ×2 (08:16→20:57)
[2018-05-27] MEDS: PANTOprazole 40 MG TAB PO SCH (08:16)
[2018-05-27] MEDS: ATORVASTATIN 10 MG TAB PO SCH (08:17)
[2018-05-27] MEDS: DOCUSATE SODIUM 100 MG CAP PO SCH ×2 (08:17→20:57)
[2018-05-27] MEDS: guaiFENesin 600 MG TABCR PO SCH ×2 (08:17→21:01)
[2018-05-27] MEDS: LORATADINE 10 MG TAB PO SCH (08:18)
[2018-05-27] MEDS: DICLOFENAC SOD 1% GEL 100 GM TUBE EXT SCH ×3 (08:18→21:10)
[2018-05-27] MEDS: DOXYCYCLINE HYCLATE 100 MG CAP PO SCH (08:18)
[2018-05-27] MEDS: cefTRIAXone SODIUM 1,000 MG in DEXTROSE 5% 50 ML IV SCH (08:18)
[2018-05-27] MEDS: METOPROLOL TARTRATE 100 MG TAB PO SCH ×2 (08:19→21:00)
[2018-05-27] MEDS: ASPIRIN 81 MG ECTAB PO SCH (08:19)
[2018-05-27] MEDS: HEPARIN SOD 5,000 UNIT/0.5 ML VIAL SQ SCH ×2 (08:19→20:58)
[2018-05-27] MEDS: BUMETANIDE 1 MG TAB PO SCH (08:20)
[2018-05-27] MEDS: FLUTICASONE PROPIONATE NA SPR 16 GM BTL SCH ×2 (08:20→20:58)
[2018-05-27] MEDS: INSULIN ASPART 100 UNITS/ML 3 ML PEN SC SCH ×4 (08:23→21:03)
--- NOTE | 2018-05-27 11:41 | Discharge Summary ---
Date of Service May 28, 2018 Admission HPI Per Admitting Provider 87 yo F with PMHx of HTN, HLD, CAD, 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 Patient was admitted 04/24-04/27 for SOB, claire LE edema. Symptoms were attributed to CHF vs COPD vs Pneumonia. VQ scan was unremarkable for PE. She was treated with Azithromycin, Ceftriaxone, IV solumedrol, Bumex, sent home on azithromycin, Cefdinir, prednisone taper. She was discharged to [facility] followed by discharge to her personal alf. Patient reports worsening SOB x 2 days particularly throughout the night. She reports chest discomfort with inspiration had episode of dizziness, blurry vision. She also reports chronic cough, more recently with sputum, runny nose. She doesn't use oxygen at home. She used her nebulizer this morning around 5 am which gave her some relief. Patient reports she has been weighing herself, and has been consistently 141 lbs for days without weight gain or LE edema. She denies calf tenderness. She is a patient Deion Downs, Curly Cleveland is her manager inventory management ( [employer]). In ED, afebrile on arrival, sat 95-98%, elevated BP. CXR shows trace claire pleural effusions, cardiomegaly without pulm edema, no consolidation. White ct is negative. Trop is negative. Hyponatremic on arrival 130 within baseline range, elevated Cr 1.94 within baseline range, Patient received 40 mg IV LASIX in ED. Patient reports some improvement in her symptoms. Admission Exam Per Admitting Provider Constitutional: WD/WN, vitals as above no acute distress Eyes: PERRL and EOM intact bilaterally ENMT: external ear and nose normal, oropharynx normal Neck: trachea midline, no thyromegaly Respiratory: + cough; no respiratory distress Auscultation: + rhonchi (claire); no wheezes Cardiovascular: RRR, no murmur, no edema Gastrointestinal (Abdomen): normal bowel sounds, soft, nontender, no hepatosplenomegaly Musculoskeletal: Extremities: extremities normal to inspection + arteriovenous fistula Skin: no rashes, warm and dry Neurologic: PERRL, EOMI, accommodation nl, no face palsy, no dysarthria CN's II-XI intact bilaterally (grossly) and awake Psychiatric: A+Ox3, euthymic affect Principal Diagnosis Congestive heart failure, urinary tract infection Discharge Exam General Appearance: Awake, alert & oriented, speaking in full sentences, comfortable in general, NAD. CV: +S1S2 RRR, no murmur. Right upper extremity AV fistula in place. Pulm: Clear to auscultation throughout. Abdomen: +BS, soft, non-tender, non-distended. Extremities: No pedal edema or calf tenderness. Moving all extremities naturally and easily. There is some mild soft tissue swelling of the distal left wrist with no obvious underlying hematoma (appears unchanged over past three days). Neuro: No gross neuro deficits. Discharge Data Allergies Allergy/AdvReac Type Severity Reaction Status Date / Time fenofibrate Allergy Intermediate rash Verified 05/23/18 13:12 amoxicillin Allergy Unknown UNKNOWN Verified 05/23/18 13:12 calcium carbonate Allergy Unknown . Verified 05/23/18 13:12 Cipro Allergy Unknown . Verified 10/30/17 13:10 ciprofloxacin Allergy Unknown . Verified 05/23/18 13:12 diphenhydramine Allergy Unknown . Verified 05/23/18 13:12 fexofenadine Allergy Unknown UNKNOWN Verified 05/23/18 13:12 irbesartan Allergy Unknown UNKNOWN Verified 05/23/18 13:12 lidocaine Allergy Unknown . Verified 05/23/18 13:12 niacin Allergy Unknown RASH Verified 05/23/18 13:12 nystatin Allergy Unknown . Verified 05/23/18 13:12 Penicillins Allergy Unknown UNKNOWN Verified 05/23/18 13:12 Sulfa (Sulfonamide Allergy Unknown UNKNOWN Verified 05/23/18 13:12 Antibiotics) flumazenil AdvReac Intermediate DELIRIUM Verified 05/23/18 13:12 tomato AdvReac Unknown GI SYMPTOMS Verified 05/23/18 13:12 Ordered Studies Transthoracic echocardiogram on 27 April 2018 (see full report) Mild concentric LVH. LV SF is mild to moderately reduced. Left atrium is borderline dilated. Moderate to severe mitral regurgitation. Mild to moderate tricuspid regurgitation. Right ventricular systolic pressure is elevated at > 60 mmHg. Compared to echocardiogram in June 2017, the degree of mitral regurgitation appears severe but the overall LV systolic function appears mildly improved. Ejection fraction 40-45%. Portable single view chest x-ray on 23 May 2018 IMPRESSION: 1. Trace bilateral pleural effusions. 2. Cardiomegaly without evidence for pulmonary edema. 3. No consolidation. Ultrasound venous Doppler left upper extremity on 25 May 2018 IMPRESSION: No sonographic evidence of deep venous thrombosis. Hospital Course (1) Shortness of breath: 87-year-old female was admitted on 23 May 2018 for worsening shortness of breath. Shortness of breath, CHF exacerbation: PMH combined systolic and diastolic CHF. Received 40 + 20 mg doses of Lasix with good diuresis. TTE in April 2018 notes mild concentric LVH, EF 40-45%, moderate global LV hypokinesis, and some valvular disease (see full report). pCXR notes trace bilateral effusions without consolidation. - Continuing her home Bumex 1 mg qAM. Monitoring daily weights as well as I/Os. - Upon discussion with her son, there is been a history of issues with her Vyas catheter either not functioning or with the bag being removed. Either way, she ends up with some relative bladder overload that has led to either a UTI or generalized fluid overload. Thus, future concerns for a CHF exacerbation should also concurrently closely look at her acute urinary status. COPD: PMH same. Do not presently suspect a severe exacerbation. Is on scheduled duo nebs as well as prn. She was never started on steroids. started doxycycline for potential bronchitis/mild exacerbation. Of note, patient does not use oxygen at home. She is followed by Aneudy Muñoz of pulmonology as an outpatient. Here, she was able to ambulate a short distance, with SpO2 93-96% on room air. - Will stop the empiric doxycycline and transition to the oral cefuroxime (as below). Sinusitis: Reported purulent sputum but this seems to have resolved. She remains on her home Flonase and Claritin. Urinary tract infection: UCx growing MDR E. coli. started ceftriaxone. Her chronic indwelling catheter was changed out on . - Upon discharge, will prescribe oral cefuroxime 250 mg PO q 24 hours x 7 days (E coli sensitive to this, but renal dosing) for 14 total day antibiotic course. - Recommend stopping suppressive macrobid, as this E coli is resistant to it. Left wrist/arm pain: 03Mar venous ultrasound of the left upper extremity noted no evidence of DVT. Treated with warm compresses and topical Voltaren. Per son, she may have some arthritis and has had some outpatient therapy for this. Per the patient, she was previously evaluated for possible surgery in the area but was not deemed a surgical candidate at that time. - Recommended she have outpatient orthopedic follow-up for this ongoing pain. Anemia: Admit Hb 10.6, has remained stable around there. Baseline is perhaps in the Hb 11's. No evidence of acute bleeding. Mild oral pharyngeal dysphasia: As noted by speech therapy evaluation back in April 2018. Recommended mechanical soft diet, thin liquids. Strict aspiration and GERD precautions. Hyponatremia: Admit Na 130, since in 130s. Ongoing medical issues: - Hypertension, CAD, four-vessel bypass CABG in 2006: On metoprolol and olmesartan. - Hyperlipidemia: On atorvastatin. - Permanent A. fib, dual-chamber pacemaker: On digoxin and metoprolol. - Excessive epistaxis: Listed reason why she is not on anticoagulation for her A. fib. - Severe pulmonary hypertension. - Diabetes type 2: On Lantus 10 units q HS here as well as a sliding scale while an inpatient. - Hypothyroidism: On levothyroxine. - CKD stage IV: Admit Cr 1.94, since stabilized to around her baseline. Has a right upper extremity fistula in place but apparently has not yet needed to use it. - GERD: On Protonix. - Anxiety/depression: On lexapro. (2) CHF (congestive heart failure): (3) COPD (chronic obstructive pulmonary disease): (4) Sinusitis: (5) UTI (urinary tract infection): (6) Left arm swelling: (7) Anemia: (8) Dysphagia: (9) Hypertension: (10) Hyperlipidemia: (11) Atrial fibrillation: (12) Epistaxis: (13) Pulmonary hypertension: (14) DM (diabetes mellitus): (15) Hypothyroidism (acquired): (16) S/P quintuple vessel bypass: (17) Chronic kidney disease: (18) GERD (gastroesophageal reflux disease): (19) Depression: (20) Anxiety: (21) Hyponatremia: Total Time Total Time Spent Total Time Spent (In Minutes): > 30 min Discharge Plan Discharge Items Patient Disposition: Transfer Inpatient Rehab Fac Reason For Visit: CHF EXACERBATION Discharge Diagnosis: CHF exacerbation Discharge Goals: Decrease discomfort, Improve function and Increase independence Activity: Per 'Additional Instructions' section Non-emergency contact: Primary Care Provider Call non-emergency contact if: you have any medication questions Follow-up/Referrals: Deion Downs MD [Primary Care Provider] - Diet: Carb Consistent or DM2 and Dialysis Renal Diet Comment: 1. Minced and moist mechanical soft "slippery" diet, thin liquids. 2. Str Addtl Provider Instructions: You were admitted to the hospital on May 23, 2018 for some shortness of breath. While in the hospital you were evaluated for the following issues: Shortness of breath and congestive heart failure (CHF) exacerbation: Though it is not exactly clear why, but you did have a bit of a fluid back up into your lungs that caused some difficulty breathing. This quickly resolved with a couple doses of a medicine called Lasix. - Going forward, please continue your daily weight checks and watch your fluid intake. Please also watch your salt intake as well. - Continue to take the same Bumex dose you were on before this hospitalization. Urinary tract infection: We checked your urine back on May 23 and it was growing a bacteria called E. coli. We started you on antibiotics for this. - Please continue to take the antibiotic called cefuroxime for the next seven days. - Previously you were on an antibiotic called Macrobid (nitrofurantoin). Your current bladder infection is resistant to this antibiotic, so we will stop it. - It remains important that you check to make sure that your urinary catheter appears to be working and that urine is regularly both going into the bag and being emptied. This will both help prevention of getting another urinary tract infection as well as potentially contributing to a new CHF exacerbation. Left wrist and arm pain: As evaluation of the potential cause of your pain, we did an ultrasound of your arm which did not show any evidence of a blood clot. Most likely your pain is caused by a combination of some arthritis as well as the previous injury between your forearm bones. - Please follow-up with your orthopedic provider for ongoing evaluation and related care. - We wrote a prescription for topical medicine called Voltaren gel that should also help with some local pain. Speech and swallow recommendations: We continue to recommend that you follow the specific speech therapy recommendations to help decrease the chances of any swallowed food or fluids going into your lungs. Diabetes: Here in the hospital you were on insulin to control your blood sugars. We recommend that you take your Lantus 10 units in the evening. Your doctor should continue to modify this as needed based on your blood sugars going forward. Overall, your two new medications are the topical Voltaren gel for your forearm as well as the antibiotic cefuroxime. We adjusted your insulin as well. The remainder of your previous home medicines should remain the same. You are being discharged to [facility] (formerly [facility] for further rehabilitation to regain your strength. Please work with the doctors and health care team there on all the above issues. Please see your primary care provider as soon as possible for close post-hospitalization continuity of care. If in the future you were to develop the return of difficulty breathing, chest pain, or any other emergent concerns please go to the nearest emergency department. Prescriptions: New diclofenac sodium [Voltaren] 1 % Gel See Rx Instructions .ROUTE .COMPLEX PRN (Reason: pain) 14 Days Qty: 100 RF: 0 Lantus Solostar U-100 Insulin 100 unit/mL (3 mL) Insulin Pen 10 unit SC HS 30 Days Qty: 3 RF: 0 cefuroxime axetil 250 mg tablet 250 mg PO DAILY 7 Days Qty: 7 RF: 0 Continued cyanocobalamin (vitamin B-12) [Vitamin B-12] 1,000 mcg Tablet 1,000 mcg PO QAM RF: 0 aspirin 81 mg Tablet,Delayed Release (Dr/Ec) 81 mg PO QAM RF: 0 nitroglycerin 0.4 mg Tablet, Sublingual 0.4 mg Sublingual UD RF: 0 olmesartan [Benicar] 20 mg Tablet 20 mg PO HS RF: 0 atorvastatin 10 mg tablet 10 mg PO QAM RF: 0 levalbuterol HCl 0.63 mg/3 mL solution for nebulization 0.63 mg Inhalation TID RF: 0 metoprolol tartrate 100 mg tablet 100 mg PO BID RF: 0 acetaminophen [Tylenol Extra Strength] 500 mg Tablet 500 mg PO Q6H PRN (Reason: Pain) RF: 0 levothyroxine 75 mcg tablet 75 mcg PO QAM RF: 0 tolterodine 2 mg tablet 2 mg PO BID RF: 0 lorazepam 0.5 mg tablet 0.5 mg PO DAILY RF: 0 ascorbic acid (vitamin C) [Vitamin C] 500 mg Tablet 500 mg PO QAM RF: 0 benzonatate 100 mg capsule 100 mg PO TID RF: 0 biotin 10,000 mcg Capsule 10,000 mcg PO QAM RF: 0 lansoprazole 30 mg capsule,delayed release(DR/EC) 30 mg PO QAM RF: 0 docusate sodium [Colace] 100 mg Capsule 100 mg PO BID RF: 0 bumetanide 1 mg tablet 1 mg PO QAM RF: 0 digoxin 125 mcg tablet 125 mcg PO 3XWK RF: 0 ondansetron 4 mg tablet,disintegrating 4 mg PO Q4H PRN (Reason: Nausea And Vomiting) RF: 0 calcitriol 0.25 mcg capsule 0.25 mg PO Q2D RF: 0 cranberry 500 mg Capsule 1,000 mg PO BID RF: 0 cholecalciferol (vitamin D3) [Vitamin D3] 1,000 unit Capsule 1,000 unit PO QAM RF: 0 escitalopram oxalate 5 mg tablet 5 mg PO QDL RF: 0 omega-3 acid ethyl esters 1 gram capsule 2,000 mg PO BID RF: 0 loratadine 10 mg Capsule 10 mg PO QAM RF: 0 magnesium oxide 400 mg Capsule 400 mg PO QAM RF: 0 fluticasone [Flonase Allergy Relief] 50 mcg/actuation [place],Suspension 2 spray INTRANASAL DAILY RF: 0 Discontinued nitrofurantoin macrocrystal 50 mg capsule 50 mg PO HS RF: 0 Basaglar KwikPen U-100 Insulin 100 unit/mL (3 mL) insulin pen 30 unit subcut DAILY RF: 0 Stand-Alone Forms: [facility], [facility] Discharge Orders: Discharge Order (Routine); Ordered 05/28/18 Ordered By: Ernesto Hilton Skilled Items Patient informed of condition?: Yes DNR: Yes Discharge Level of Care: Acute rehab Communicable Disease: No Discharge Prognosis: Stable Admission Data Admit Date/Time: 05/26/18 10:26 Attending Provider: Adrian Mcwilliams Admit Provider: Guy Bauer Primary Care Provider: Deion Downs Other Providers: Adrian Mcwilliams Service: Telemetry Other Interventions: Discharge Summary Assessment (RN) Last Done: 05/28/18 12:07 Supervising Physician Co-Signing Physician Notes Patient seen and examined with the resident. Agree with history, physical exam, assessment and plan with the following updates/corrections: 87yo F w/ hx of afib who presents with shortness of breath; now resolved. Today, she feels well. No further shortness of breath. Continued left arm pain, but improved from several days ago. 1) Shortness of breath - Treated as mild acute on chronic combined systolic and diastolic (congestive) heart failure; will continue to monitor, but at this point, has resolved. 2) Nausea - Mild, transient. Reports this is an ongoing issue, and will treat symptomatically. Also possibly worsened by the doxy which we are stopping on discharge. 3) Left arm swelling/pain - Possible, mild hematoma in the left forearm from blood draws. She is treating with diclofenac gel and warm pad. Improving 4) UTI of chronic indwelling Vyas - On ceftriaxone per sensitivities; will switch to cefuroxime on discharge. 5) Sinusitis - Initially reported some purulent discharge from the sinuses, but never had any of that while I was taking care of her. No sinus pain. Will discharge on cefuroxime for UTI which should also help with most common sinus bugs. Resident Activity Tracking Resident Involvement: Resident Care Provided Care Provided: Adult Hospital Medicine
[2018-05-27] MEDS: ESCITALOPRAM OXALATE 10 MG TAB PO SCH (13:05)
--- NOTE | 2018-05-27 14:00 | Family Medicine Progress Note ---
Date of Service May 27, 2018 Assessment & Plan (1) Shortness of breath: 87-year-old female was admitted on 23 May 2018 for worsening shortness of breath. Shortness of breath, CHF exacerbation: PMH combined systolic and diastolic CHF. Received 40 + 20 mg doses of Lasix with good diuresis. TTE in April 2018 notes mild concentric LVH, EF 40-45%, moderate global LV hypokinesis, and some valvular disease (see full report). pCXR notes trace bilateral effusions without consolidation. - Continuing her home Bumex 1 mg qAM. Monitoring daily weights as well as I/Os. - Upon discussion with her son, there is been a history of issues with her Vyas catheter either not functioning or with the bag being removed. Either way, she ends up with some relative bladder overload that has led to either a UTI or generalized fluid overload. Thus, future concerns for a CHF exacerbation should also concurrently closely look at her acute urinary status. COPD: PMH same. Do not presently suspect a severe exacerbation. Is on scheduled duo nebs as well as prn. She was never started on steroids. Mar started doxycycline for potential bronchitis/mild exacerbation. Of note, patient does not use oxygen at home. She is followed by Aneudy Muñoz of pulmonology as an outpatient. Here, she was able to ambulate a short distance, with SpO2 93-96% on room air. - Will stop the empiric doxycycline and transition to the oral cefuroxime (as below). Sinusitis: Reported purulent sputum but this seems to have resolved. She remains on her home Flonase and Claritin. Urinary tract infection: UCx growing MDR E. coli. Mar started ceftriaxone. Her chronic indwelling was changed out on . - Upon discharge, will prescribe oral cefuroxime 250 mg PO q 24 hours (E coli sensitive to this, but renal dosing) for 14 total day antibiotic course. Left wrist/arm pain: venous ultrasound of the left upper extremity noted no evidence of DVT. Treated with warm compresses and topical Voltaren. Per son, she may have some arthritis and has had some outpatient therapy for this. - Recommended she have outpatient orthopedic follow-up for this ongoing pain. Anemia: Admit Hb 10.6, has remained stable around there. Baseline is perhaps in the Hb 11's. No evidence of acute bleeding. Mild oral pharyngeal dysphasia: As noted by speech therapy evaluation back in April 2018. Recommended mechanical soft diet, thin liquids. Strict aspiration and GERD precautions. Hyponatremia: Admit Na 130, since in 130s. Ongoing medical issues: - Hypertension, CAD, four-vessel bypass CABG in 2006: On metoprolol and olmesartan. - Hyperlipidemia: On atorvastatin. - Permanent A. fib, dual-chamber pacemaker: On digoxin and metoprolol. - Excessive epistaxis: Listed reason why she is not on anticoagulation for her A. fib. - Severe pulmonary hypertension. - Diabetes type 2: On Lantus as well as a sliding scale while an inpatient. - Hypothyroidism: On levothyroxine. - CKD stage IV: Admit Cr 1.94, since stabilized to around her baseline. Has a right upper extremity fistula in place but apparently has not yet needed to use it. - GERD: On Protonix. - Anxiety/depression: On lexapro. Code status: DO NOT RESUSCITATE Diet: DM 2, renal dialysis, texture of minced and moist. DVT prophy: Heparin 5000 units every 12 hours. PT/OT: Ongoing. Recommended ongoing PT/OT. Disbo: Admitted to [facility] with telemetry. Patient says she lives at [facility],, however she and her son wish to go back to [facility] for inpatient rehab. Working on the same. - Updated son (Luis Alberto Gil, ) on the phone on . (2) CHF (congestive heart failure): (3) COPD (chronic obstructive pulmonary disease): (4) Sinusitis: (5) UTI (urinary tract infection): (6) Left arm swelling: (7) Anemia: (8) Dysphagia: (9) Hypertension: (10) Hyperlipidemia: (11) Atrial fibrillation: (12) Epistaxis: (13) Pulmonary hypertension: (14) DM (diabetes mellitus): (15) Hypothyroidism (acquired): (16) S/P quintuple vessel bypass: (17) Chronic kidney disease: (18) GERD (gastroesophageal reflux disease): (19) Depression: (20) Anxiety: (21) Hyponatremia: Supervising Physician Co-Signing Physician Notes Patient seen and examined with the resident. Agree with history, physical exam, assessment and plan with the following updates/corrections: 87yo F w/ hx of afib who presents with shortness of breath; now resolved. Toda, she feels well. No further shortness of breath. Reports some left arm pain from possible hematoma from prior needle sticks from last hospitalization. Otherwise, notes some mild nausea. 1) Shortness of breath - Treated as mild acute on chronic combined systolic and diastolic (congestive) heart failure; will continue to monitor, but at this point, has resolved. 2) Nausea - Mild, transient. Reports this is an ongoing issue, and will treat symptomatically. Also possibly worsened by the doxy which we are stopping on discharge. 3) Left arm swelling/pain - Possible, mild hematoma in the left forearm from blood draws. She is treating with diclofenac gel and warm pad. Improving 4) UTI of chronic indwelling Vyas - On ceftriaxone per sensitivities; will switch to cefuroxime on discharge. Subjective Found patient resting comfortably this morning. She says overnight that she had a return of some more left distal forearm/wrist and upper arm pain. She attributes the distal forearm pain to a previous interosseous membrane injury that apparently was non-operable. Otherwise she says that her breathing feels good and she does not have any other acute concerns. Physical Exam Vital Signs (Past 24 Hours): Last Vital Signs Temp 36.4 C L 05/27/18 11:42 Pulse 70 05/27/18 11:42 Resp 18 05/27/18 11:42 BP 120/61 05/27/18 11:42 Pulse Ox 95 05/27/18 11:42 Physical Exam: General Appearance: Awake, alert & oriented, speaking in full sentences, comfortable in general, NAD. CV: +S1S2 RRR, no murmur. Right upper extremity AV fistula in place. Pulm: Clear to auscultation throughout. Abdomen: +BS, soft, non-tender, non-distended. Extremities: No pedal edema or calf tenderness. Moving all extremities naturally and easily. There is some mild soft tissue swelling of the distal left wrist with no obvious underlying hematoma (appears unchanged from yesterday). Neuro: No gross neuro deficits. Results & Data Laboratory Results Laboratory Results WBC 6.50 K/uL (4.8-10.8) 05/26/18 06:35 RBC 3.71 M/uL (4.2-5.4) L 05/26/18 06:35 Hgb 10.0 g/dL (12.0-16.0) L 05/26/18 06:35 Hct 32.3 % (37-47) L 05/26/18 06:35 MCV 87.1 fL (80-100) 05/26/18 06:35 MCH 27.0 pg (25-34) 05/26/18 06:35 MCHC 31.0 g/dL (32-36) L 05/26/18 06:35 RDW Std Deviation 56.2 fL (36.4-46.3) H 05/26/18 06:35 RDW Coeff of Anthony 17.7 % (11.5-14.5) H 05/26/18 06:35 Plt Count 239 K/uL (130-400) 05/26/18 06:35 MPV 8.5 fL (7.4-10.4) 05/26/18 06:35 Immature Gran % (Auto) 0.2 % 05/26/18 06:35 Neut % (Auto) 57.2 % 05/26/18 06:35 Lymph % (Auto) 24.8 % 05/26/18 06:35 Walker % (Auto) 12.2 % 05/26/18 06:35 Eos % (Auto) 5.1 % 05/26/18 06:35 Baso % (Auto) 0.5 % 05/26/18 06:35 Immature Gran # (Auto) 0.01 K/uL (0.00-0.02) 05/26/18 06:35 Neut # (Auto) 3.73 K/uL (1.4-6.5) 05/26/18 06:35 Lymph # (Auto) 1.61 K/uL (1.2-3.4) 05/26/18 06:35 Walker # (Auto) 0.79 K/uL (0.11-0.59) H 05/26/18 06:35 Eos # (Auto) 0.33 K/uL (0-0.5) 05/26/18 06:35 Baso # (Auto) 0.03 K/uL (0-0.2) 05/26/18 06:35 PT 10.6 Seconds (9.0-12.0) 05/23/18 12:00 INR 1.0 (0.9-1.1) 05/23/18 12:00 APTT 27.1 Seconds (21.0-31.0) 05/23/18 12:00 PTT Ratio 1.0 05/23/18 12:00 VBG pH 7.39 (7.36-7.41) 05/23/18 12:59 VBG pCO2 42 mmHg (38-50) 05/23/18 12:59 VBG pO2 45 mmHg 05/23/18 12:59 VBG HCO3 25 mmol/L 05/23/18 12:59 VBG O2 Saturation 78.4 % 05/23/18 12:59 VBG Base Excess 0 mEq/L 05/23/18 12:59 Barometric Pressure 736.5 mm/Hg 05/23/18 12:59 Sodium 130 mmol/L (136-145) L 05/26/18 06:35 Potassium 4.8 mmol/L (3.5-5.1) 05/26/18 06:35 Chloride 96 mmol/L (98-107) L 05/26/18 06:35 Carbon Dioxide 26 mmol/L (21-32) 05/26/18 06:35 Anion Gap 8.0 (3-11) 05/26/18 06:35 BUN 58 mg/dl (7-18) H 05/26/18 06:35 Creatinine 2.29 mg/dl (0.6-1.2) H 05/26/18 06:35 Est Cr Clr Drug Dosing 14.9 ml/min 05/26/18 06:35 Est GFR ( Amer) 21.4 05/26/18 06:35 Est GFR (Non-Af Amer) 18.5 05/26/18 06:35 BUN/Creatinine Ratio 25.5 (10-20) H 05/26/18 06:35 Glucose 137 mg/dl (70-99) H 05/26/18 06:35 POC Glucose 159 (70-99) H 05/27/18 11:55 Calcium 8.0 mg/dl (8.5-10.1) L 05/26/18 06:35 Magnesium 2.1 mg/dl (1.8-2.4) 05/23/18 12:00 Total Bilirubin 0.6 mg/dl (0.2-1) 05/23/18 12:00 AST 23 U/L (15-37) 05/23/18 12:00 ALT 31 U/L (12-78) 05/23/18 12:00 Alkaline Phosphatase 92 U/L (45-117) 05/23/18 12:00 Troponin I < 0.015 ng/ml (0-0.045) 05/23/18 12:00 Total Protein 7.0 gm/dl (6.4-8.2) 05/23/18 12:00 Albumin 3.3 gm/dl (3.4-5.0) L 05/23/18 12:00 Globulin 3.7 gm/dl (2.5-4.0) 05/23/18 12:00 Albumin/Globulin Ratio 0.9 (0.9-2) 05/23/18 12:00 Urine Color Yellow 05/23/18 15:15 Urine Appearance Cloudy (Clear) H 05/23/18 15:15 Urine pH 7.5 (4.5-7.5) 05/23/18 15:15 Ur Specific [place] 1.008 (1.000-1.030) 05/23/18 15:15 Urine Protein Trace (Negative) H 05/23/18 15:15 Urine Glucose (UA) Negative (Negative) 05/23/18 15:15 Urine Ketones Negative (Negative) 05/23/18 15:15 Urine Blood Trace (Negative) H 05/23/18 15:15 Urine Nitrite Negative (Negative) 05/23/18 15:15 Urine Bilirubin Negative (Negative) 05/23/18 15:15 Urine Urobilinogen Negative (Negative) 05/23/18 15:15 Ur Leukocyte Esterase 3+ (Negative) H 05/23/18 15:15 Urine WBC (Auto) >30 /hpf (0-5) H 05/23/18 15:15 Urine RBC (Auto) 10-30 /hpf (0-4) H 05/23/18 15:15 U Hyaline Cast (Auto) 5-10 /lpf (0-5) H 05/23/18 15:15 U Epithel Cells (Auto) 0-5 /lpf (0-5) 05/23/18 15:15 Urine Bacteria (Auto) 1+ (Negative) H 05/23/18 15:15 Urine Yeast Not Reportable 05/23/18 15:15 Medications Administered Current Inpatient Medications Acetaminophen (Tylenol) 650 mg PO Q4H PRN PRN Reason: pain/fever Stop: 06/22/18 17:29 Last Admin: 05/26/18 18:10 Dose: 650 mg Documented by: Albuterol (Duoneb) 3 ml NEB QIDR [facility] Stop: 06/22/18 19:59 Last Admin: 05/27/18 11:24 Dose: 3 ml Documented by: Aspirin (Ecotrin [facility]ab) [facility] Stop: 06/23/18 08:59 Last Admin: 05/27/18 08:19 Dose: 81 mg Documented by: Atorvastatin Calcium (Lipitor) [facility] Stop: 06/23/18 08:59 Last Admin: 05/27/18 08:17 Dose: 10 mg Documented by: Bumetanide (Bumex) 1 mg PO QAM [facility] Stop: 06/23/18 08:59 Last Admin: 05/27/18 08:20 Dose: 1 mg Documented by: Dextrose (Dextrose 50%) 25 - 50 ml IV UD PRN; Protocol PRN Reason: Hypoglycemia Protocol Stop: 06/22/18 17:29 Diclofenac Sodium (Voltaren 1% Top) 1 appln EXT TID [facility] Stop: 06/24/18 20:59 Last Admin: 05/27/18 13:09 Dose: 1 appln Documented by: Digoxin (Lanoxin) 0.125 mg PO MoWeFr@1600 [facility] Stop: 06/25/18 15:59 Last Admin: 05/26/18 17:12 Dose: 0.125 mg Documented by: Docusate Sodium (Colace) 100 mg PO BID [facility] Stop: 06/22/18 20:59 Last Admin: 05/27/18 08:17 Dose: 100 mg Documented by: Escitalopram Oxalate (Lexapro) 5 mg PO QDL [facility] Stop: 06/23/18 11:29 Last Admin: 05/27/18 13:05 Dose: 5 mg Documented by: Fluticasone Propionate (Flonase) 2 sprays NA BID [facility] Stop: 06/23/18 20:59 Last Admin: 05/27/18 08:20 Dose: 2 sprays Documented by: Glucagon (Glucagen) 1 mg SQ UD PRN; Protocol PRN Reason: Hypoglycemia Protocol Stop: 06/22/18 17:29 Glucose (Glucose 40%) 15 - 30 gm PO UD PRN; Protocol PRN Reason: Hypoglycemia Protocol Stop: 06/22/18 17:29 Glucose (Dex4 Glucose) 4 - 8 tabs PO UD PRN; Protocol PRN Reason: Hypoglycemia Protocol Stop: 06/22/18 17:29 Guaifenesin (Mucinex) 600 mg PO Q12 [facility] Stop: 06/23/18 20:59 Last Admin: 05/27/18 08:17 Dose: 600 mg Documented by: Heparin Sodium (Porcine) (Heparin Sodium (Porcine)) 5,000 units SQ Q12 [facility] Stop: 06/22/18 20:59 Last Admin: 05/27/18 08:19 Dose: 5,000 units Documented by: Ceftriaxone Sodium 1,000 mg/ (Dextrose) 50 mls @ 100 mls/hr IV DAILY [facility] Stop: 05/29/18 12:44 Last Infusion: 05/27/18 08:48 Dose: Infused Documented by: Insulin Aspart (Novolog Flexpen) 0 units SC ACHS [facility] Stop: 06/22/18 20:59 Last Admin: 05/27/18 13:07 Dose: Not Given Documented by: Insulin Glargine (Lantus Solostar Pen) 10 units SC HS [facility] Stop: 06/24/18 20:59 Last Admin: 05/26/18 20:08 Dose: 10 units Documented by: Levothyroxine Sodium (Synthroid) 75 mcg PO DAILYBB [facility] Stop: 06/23/18 06:29 Last Admin: 05/27/18 06:09 Dose: 75 mcg Documented by: Loratadine (Claritin) 10 mg PO QAM [facility] Stop: 06/23/18 08:59 Last Admin: 05/27/18 08:18 Dose: 10 mg Documented by: Metoprolol Tartrate (Lopressor) 100 mg PO BID [facility] Stop: 06/22/18 20:59 Last Admin: 05/27/18 08:19 Dose: 100 mg Documented by: Miscellaneous (Carbohydrates For Hypoglycemia) 15 - 30 gm PO UD PRN PRN Reason: Hypoglycemia Treatment Stop: 06/22/18 17:29 Last Admin: 05/25/18 06:39 Dose: 15 gm Documented by: Olmesartan (Benicar) 20 mg PO HS [facility] Stop: 06/22/18 20:59 Last Admin: 05/26/18 20:02 Dose: 20 mg Documented by: Ondansetron HCl (Zofran) 4 mg IV Q6H PRN PRN Reason: Nausea Stop: 06/22/18 17:29 Pantoprazole Sodium (Protonix) 40 mg PO QAM [facility] Stop: 06/23/18 08:59 Last Admin: 05/27/18 08:16 Dose: 40 mg Documented by: Polyethylene Glycol (Miralax Powder Packet) 17 gm PO DAILY PRN PRN Reason: Constipation Stop: 06/22/18 17:29 Last Admin: 05/26/18 00:18 Dose: 17 gm Documented by: Tolterodine Tartrate (Detrol) 2 mg PO BID [facility] Stop: 06/22/18 20:59 Last Admin: 05/27/18 08:16 Dose: 2 mg Documented by: Zolpidem Tartrate (Ambien) 5 mg PO HS PRN PRN Reason: Insomnia Stop: 06/22/18 20:51 Last Admin: 05/26/18 22:24 Dose: 5 mg Documented by: Resident Activity Tracking Resident Involvement: Resident Care Provided Care Provided: Adult Hospital Medicine
[2018-05-27] MEDS: ONDANSETRON 4 MG TAB PO PRN (18:45)
[2018-05-27] MEDS: OLMESARTAN MEDOXOMIL 20 MG TAB PO SCH (20:55)
[2018-05-27] MEDS: INSULIN GLARGINE SOLOSTAR 100 UNITS/ML 3 ML PEN SC SCH (21:04)
[2018-05-27] MEDS: ZOLPIDEM TARTRATE 5 MG TAB PO PRN (23:38)
[2018-05-28] MEDS: LEVOTHYROXINE SODIUM 75 MCG TABLET PO SCH (05:50)
[2018-05-28 06:29] LABS: Basophils # (auto) 0.03 K/uL (0-0.2); Basophils % (auto) 0.5 %; Eosinophils % (auto) 3.5 %; Hematocrit (blood only) 32.5 % (37-47); Hemoglobin 10.3 g/dL (12.0-16.0); Immature Granulocytes # (auto) 0.02 K/uL (0.00-0.02); Immature Granulocytes % (auto) 0.4 %; Lymphocytes # (auto) 1.54 K/uL (1.2-3.4); Lymphocytes % (auto) 27.1 %; Mean Corpuscular Hgb Conc 31.7 g/dL (32-36); Mean Corpuscular Volume 85.8 fL (80-100); Mean Platelet Volume 8.6 fL (7.4-10.4); Monocytes # (auto) 0.66 K/uL (0.11-0.59); Monocytes % (auto) 11.6 %; Neutrophils # (auto) 3.24 K/uL (1.4-6.5); Neutrophils % (auto) 56.9 %; Platelet Count 233 K/uL (130-400); RDW Coefficient of Variation 17.1 % (11.5-14.5); RDW Standard Deviation 53.7 fL (36.4-46.3); Red Blood Count 3.79 M/uL (4.2-5.4); White Blood Count 5.69 K/uL (4.8-10.8)
[2018-05-28 07:07] LABS: BUN Creatinine Ratio 26.9 (10-20); Calcium 8.4 mg/dl (8.5-10.1); Creatinine Clr Calc Pharmacy 14.2 ml/min; Est GFR (Non-African American) 17.3
[2018-05-28] MEDS: ALBUT/IPRATROP 3MG/0.5MG NEB 3 ML VIAL NEB SCH ×2 (07:18→11:10)
[2018-05-28] MEDS: ATORVASTATIN 10 MG TAB PO SCH (07:33)
[2018-05-28] MEDS: BUMETANIDE 1 MG TAB PO SCH (07:33)
[2018-05-28] MEDS: ASPIRIN 81 MG ECTAB PO SCH (07:33)
[2018-05-28] MEDS: guaiFENesin 600 MG TABCR PO SCH (07:34)
[2018-05-28] MEDS: DOCUSATE SODIUM 100 MG CAP PO SCH (07:34)
[2018-05-28] MEDS: LORATADINE 10 MG TAB PO SCH (07:34)
[2018-05-28] MEDS: PANTOprazole 40 MG TAB PO SCH (07:35)
[2018-05-28] MEDS: TOLTERODINE TARTRATE 2 MG TAB PO SCH (07:35)
[2018-05-28] MEDS: ONDANSETRON 4 MG TAB PO PRN (07:35)
[2018-05-28] MEDS: HEPARIN SOD 5,000 UNIT/0.5 ML VIAL SQ SCH (07:36)
[2018-05-28] MEDS: FLUTICASONE PROPIONATE NA SPR 16 GM BTL SCH (07:36)
[2018-05-28] MEDS: DICLOFENAC SOD 1% GEL 100 GM TUBE EXT SCH (07:37)
[2018-05-28] MEDS: METOPROLOL TARTRATE 100 MG TAB PO SCH (07:38)
[2018-05-28] MEDS: cefTRIAXone SODIUM 1,000 MG in DEXTROSE 5% 50 ML IV SCH (07:40)
[2018-05-28] MEDS: INSULIN ASPART 100 UNITS/ML 3 ML PEN SC SCH (09:01)
== END 2018-05-28 12:45 | DRG 291 ==
LOC: 2N 12:12 → ED 12:12 → SUATTDRO 17:45 → 2N 19:30

== ENCOUNTER 2018-09-02 17:38 | Inpatient (IN) ==
[2018-09-02 18:15] LABS: Basophils # (auto) 0.02 K/uL (0-0.2); Basophils % (auto) 0.2 %; Eosinophils # (auto) 0.25 K/uL (0-0.5); Eosinophils % (auto) 3.1 %; Hematocrit (blood only) 36.9 % (37-47); Immature Granulocytes # (auto) 0.02 K/uL (0.00-0.02); Immature Granulocytes % (auto) 0.2 %; Lymphocytes # (auto) 1.22 K/uL (1.2-3.4); Lymphocytes % (auto) 14.9 %; Mean Corpuscular Hgb Conc 32.5 g/dL (32-36); Mean Corpuscular Volume 89.8 fL (80-100); Mean Platelet Volume 8.9 fL (7.4-10.4); Monocytes # (auto) 0.62 K/uL (0.11-0.59); Monocytes % (auto) 7.6 %; Neutrophils # (auto) 6.04 K/uL (1.4-6.5); Platelet Count 186 K/uL (130-400); RDW Coefficient of Variation 15.6 % (11.5-14.5); RDW Standard Deviation 51.2 fL (36.4-46.3); Red Blood Count 4.11 M/uL (4.2-5.4); White Blood Count 8.17 K/uL (4.8-10.8)
[2018-09-02 18:25] LABS: Appearance Urine Clear (Clear); Bacteria Urine Automated 2+ (Negative); Bilirubin Urine Negative (Negative); Blood Urine Trace (Negative); Color Urine Yellow; Epithelial Cell Urine Auto 0-5 /lpf (0-5); Glucose Urine UA Negative (Negative); Ketones Urine Negative (Negative); Leukocyte Esterase Urine 2+ (Negative); Nitrite Urine Negative (Negative); Protein Urine 1+ (Negative); Specific Gravity Urine 1.011 (1.000-1.030); Urobilinogen Urine Negative (Negative); pH Urine 5.5 (4.5-7.5)
--- NOTE | 2018-09-02 18:26 | XRay Report ---
SINGLE VIEW CHEST CLINICAL HISTORY: Dyspnea. FINDINGS: 2 AP, portable, upright chest radiographs are compared to study dated 06/30/2018. The examina tion is degraded by portable technique and patient rotation. A 2-lead cardiac pacemaker is unchanged in position and partially obscures the left mid chest. The patient is status post midline sternotomy. The heart is enlarged and there is atherosclerotic calcification of the thoracic aorta. The pulmonar y vasculature is noncongested. Chronic interstitial thickening is unchanged. There is bibasilar atele ctasis. No airspace consolidation or large pleural effusion is identified. No pneumothorax is seen. T he skeletal structures are osteopenic. Degenerative change is noted in the shoulders and thoracic spi ne. The bony thorax is grossly intact. IMPRESSION: 1. Cardiomegaly and cardiac pacemaker. There is no radiographic evidence of congestive failure. 2. There is no airspace consolidation or large pleural effusion. Electronically signed by: Sumit Schmid M.D. 09/02/2018 6:24 PM
[2018-09-02 18:28] LABS: INR 1.1 (0.9-1.1); Partial Thromboplastin Time 27.7 Seconds (21.0-31.0); Prothrombin Time 10.9 Seconds (9.0-12.0)
[2018-09-02 18:29] LABS: Alanine Aminotransferase 25 U/L (12-78); Albumin Level 3.4 gm/dl (3.4-5.0); Aspartate Aminotransferase 23 U/L (15-37); BUN Creatinine Ratio 29.9 (10-20); Blood Urea Nitrogen 57 mg/dl (7-18); Calcium 8.8 mg/dl (8.5-10.1); Carbon Dioxide 29 mmol/L (21-32); Chloride 95 mmol/L (98-107); Creatinine Clr Calc Pharmacy 18.5 ml/min; Est GFR (African American) 26.5; Est GFR (Non-African American) 22.8; Glucose 149 mg/dl (70-99); Potassium 4.8 mmol/L (3.5-5.1); Sodium 130 mmol/L (136-145)
[2018-09-02 18:34] LABS: Alkaline Phosphatase 80 U/L (45-117); Bilirubin,Total 0.5 mg/dl (0.2-1); Globulin 3.3 gm/dl (2.5-4.0); NT Pro B Type Natriuretic Pept 28357 pg/ml (0-1800); Total Protein 6.7 gm/dl (6.4-8.2); Troponin I < 0.015 ng/ml (0-0.045)
[2018-09-02] MEDS ORDERED: ASPIRIN CHEW 324 MG PO STA (18:50)
[2018-09-02] MEDS ORDERED: FUROSEMIDE 40 MG/4 ML VIAL IV STA (18:58)
[2018-09-02] MEDS ORDERED: ONDANSETRON INJ 2 MG/ML 2 ML VIAL ONE (19:04)
[2018-09-02] MEDS ORDERED: ONDANSETRON INJ 2 MG/ML 2 ML VIAL IV STA (19:15)
--- NOTE | 2018-09-02 20:22 | Ultrasound Report ---
ULTRASOUND BILATERAL LOWER EXTREMITY VENOUS CLINICAL HISTORY: Bilateral leg pain. COMPARISON STUDY: Bilateral lower extremity venous ultrasound dated 11/21/2016. TECHNIQUE: Real-time, grayscale, and color Doppler sonography of the deep veins of the right and left lower extremity was performed from the inguinal crease to the calf. Compression and augmentation wer e utilized. FINDINGS: There is no sonographic evidence of deep venous thrombosis identified in the right or left lower extremity. The common femoral, superficial femoral, and popliteal veins are patent and normally compressible bilaterally. The greater saphenous vein and the profunda femoris vein at the junction w ith the common femoral vein are clear in both legs. The visualized calf veins are patent bilaterally. Portions the right calf were not visualized due to overlying bandaging material. Soft tissue edema i s present in both legs. IMPRESSION: There is no sonographic evidence of deep venous thrombosis identified in the right or lef t lower extremity. Electronically signed by: Sumit Schmid M.D. 09/02/2018 8:21 PM
--- NOTE | 2018-09-02 22:04 | History & Physical Report ---
Date of Service September 02, 2018 Assessment & Plan (1) Chest pain: Chest pain/hypertension/atrial fibrillation/CHF/pacemaker- The patient will be admitted to telemetry for serial cardiac enzymes, serial EKG's, cardiac rhythm monitoring. Continue aspirin 81 mg daily, bumetanide 1 mg p.o. twice daily, digoxin 125 mcg p.o. 3 times per week and metoprolol tartrate 100 mg p.o. twice daily. Present on Admission?: Yes (2) UTI (urinary tract infection): Follow urine culture and sensitivity. Place on ceftriaxone 1 g IV daily Present on Admission?: Yes (3) Hyponatremia: Chronic issue, likely associated with diuretic use. Present on Admission?: Yes (4) Anxiety: Continue E citalopram 5 mg p.o. daily. Present on Admission?: Yes (5) Hyperlipidemia: Continue atorvastatin 10 mg p.o. every morning. Present on Admission?: Yes (6) Vitamin B12 deficiency: Continue vitamin B12 supplement 1000 international units every morning Present on Admission?: Yes (7) Hypertension: See above. Present on Admission?: Yes (8) Hypothyroidism (acquired): Continue levothyroxine sodium 75 mcg p.o. every morning Present on Admission?: Yes (9) GERD (gastroesophageal reflux disease): On lansoprazole 30 mg p.o. every morning, can change to formulary substitute pantoprazole 40 mg in the morning. Present on Admission?: Yes (10) Bladder spasms: Continue tolterodine 2 mg p.o. twice daily Present on Admission?: Yes (11) DM (diabetes mellitus): Continue insulin glargine 30 units subcu every morning. With NovoLog coverage per scale. Placed on Accu-Cheks before meals and at bedtime Present on Admission?: Yes (12) Pacemaker: See above Present on Admission?: Yes (13) COPD (chronic obstructive pulmonary disease): Continue levalbuterol nebulizer 0.60 mg inhaled 3 times daily Present on Admission?: Yes (14) CKD (chronic kidney disease), stage III: Creatinine 1.91 upon admission, within usual baseline range. Present on Admission?: Yes (15) Atrial fibrillation: Continue digoxin. Otherwise see above Present on Admission?: Yes History of Present Illness Chief Complaint: The patient presents to the ED progressively worsening shortness of breath, without chest discomfort, over the past 4 days. She also complains of intermittent urinary discomfort. She states that in general she "just doesn't feel right". Primary Care Provider: Deion Downs MD The patient is a 88yo female who presents to the ED with main complaint of progressively worsening shortness of breath over the past 4 days, worsening urinary discomfort, but generally does not feel well with very little energy. Allergies Allergy/AdvReac Type Severity Reaction Status Date / Time fenofibrate Allergy Intermediate rash Verified 08/29/18 13:58 amoxicillin Allergy Unknown UNKNOWN Verified 08/29/18 13:58 calcium carbonate Allergy Unknown . Verified 08/29/18 13:58 Cipro Allergy Unknown . Verified 10/30/17 13:10 ciprofloxacin Allergy Unknown . Verified 08/29/18 13:58 diphenhydramine Allergy Unknown . Verified 08/29/18 13:58 fexofenadine Allergy Unknown UNKNOWN Verified 08/29/18 13:58 irbesartan Allergy Unknown UNKNOWN Verified 08/29/18 13:58 lidocaine Allergy Unknown . Verified 08/29/18 13:58 niacin Allergy Unknown RASH Verified 08/29/18 13:58 nystatin Allergy Unknown . Verified 08/29/18 13:58 Penicillins Allergy Unknown UNKNOWN Verified 08/29/18 13:58 Sulfa (Sulfonamide Allergy Unknown UNKNOWN Verified 08/29/18 13:58 Antibiotics) flumazenil AdvReac Intermediate DELIRIUM Verified 08/29/18 13:58 tomato AdvReac Unknown GI SYMPTOMS Verified 08/29/18 13:58 Home Medications Home Medications Medication Instructions Recorded Confirmed Type ascorbic acid (vitamin C) [Vitamin 500 mg PO QAM 04/24/18 09/02/18 History C] atorvastatin 10 mg PO QAM 04/24/18 09/02/18 History benzonatate 100 mg PO TID 04/24/18 09/02/18 History biotin 10,000 mcg PO QAM 04/24/18 09/02/18 History bumetanide 1 mg PO BID 04/24/18 09/02/18 History calcitriol 0.25 mg PO Q48H 04/24/18 09/02/18 History cholecalciferol (vitamin D3) 1,000 unit PO QAM 04/24/18 09/02/18 History [Vitamin D3] cranberry 0 mg PO BID 04/24/18 09/02/18 History digoxin 125 mcg PO 3XWK 04/24/18 09/02/18 History docusate sodium [Colace] 100 mg PO BID 04/24/18 09/02/18 History fluticasone propionate [Flonase 2 spray INTRANASAL DAILY 04/24/18 09/02/18 History Allergy Relief] lansoprazole 30 mg PO QAM 04/24/18 09/02/18 History levalbuterol HCl 0.63 mg INHALATION TID 04/24/18 09/02/18 History levothyroxine 75 mcg PO QAM 04/24/18 09/02/18 History loratadine 10 mg PO QAM 04/24/18 09/02/18 History magnesium oxide 0 mg PO QAM 04/24/18 09/02/18 History metoprolol tartrate 100 mg PO BID 04/24/18 09/02/18 History ondansetron 4 mg PO Q6H PRN 04/24/18 09/02/18 History tolterodine 2 mg PO BID 04/24/18 09/02/18 History nitroglycerin 0.4 mg SUBLINGUAL DIRECTED PRN 05/23/18 09/02/18 History escitalopram oxalate 5 mg PO DAILY 06/30/18 09/02/18 History guaifenesin [Mucinex] 600 mg PO Q12H PRN 06/30/18 09/02/18 History insulin glargine [Basaglar KwikPen 30 unit SUBCUT DAILY 06/30/18 09/02/18 History U-100 Insulin] lactulose 15 ml PO DAILY PRN 06/30/18 09/02/18 History miconazole nitrate 1 applic TOPICAL DIRECTED PRN 06/30/18 09/02/18 History nitrofurantoin macrocrystal 50 mg PO HS 06/30/18 09/02/18 History aspirin 81 mg tablet,delayed 81 mg PO Q2D tab 07/18/18 09/02/18 History release cyanocobalamin (vitamin B-12) 1,000 mcg PO DAILY 09/02/18 09/02/18 History [Vitamin B-12] olmesartan 20 mg PO HS 09/02/18 09/02/18 History Past Med/Surg History Medical History COPD (chronic obstructive pulmonary disease) Depression Pacemaker (Chronic) DM (diabetes mellitus) (Chronic) Chest pain (Acute) SOB (shortness of breath) (Acute) Atrial fibrillation (Chronic) Hypertension (Chronic 05/10/14) GERD (gastroesophageal reflux disease) (Chronic) Renal failure (Chronic) Anxiety (Acute) CHF (congestive heart failure) (Chronic) Chronic kidney disease Hyponatremia Moderate to severe pulmonary hypertension Severe mitral regurgitation Surgical History S/P quintuple vessel bypass (Resolved) History of cardiac cath (Resolved) Social History Preferred Language: [place]er Communication Ability: Effective Queen Producer Required: No Beliefs That Will Affect Care: Hoahaoism Hoahaoism Beliefs: Gnosticist Current Living Situation: Detention Current Living Situation Comment: [place] Other Information That Helps Us Care for You: No Feels Safe at Home: Yes Safety Concerns: Feels Safe At This Time Smoking Status: Never smoker Do You Dip or Chew Tobacco: No Hx Alcohol Use: No Hx Substance Use: No Review of Systems Review of Systems: The patient denies chest pain, palpitations, cough, lower extremity swelling, sore throat, fevers, chills, sweats, nausea, vomiting, diarrhea , constipation, abdominal pain, pelvic pain, blood in urine or stool, urinary frequency or urgency, lightheadedness, dizziness, headache, memory loss, loss of consciousness, rash, abnormal bruising or bleeding, imbalance, focal or generalized weakness, numbness or tingling in arms or legs, back or neck pain, or night sweats. The review of systems is otherwise negative other than for that already noted above, and at least 10 systems have been reviewed. Physical Exam Physical Exam: The patient is awake, alert and oriented 3, well developed and well nourished, normocephalic and atraumatic, lying in bed and in no acute distress. HEENT--PERRL, EOMI, mucous membranes and oropharynx normal. Neck--supple. No JVD. No bruits. Thyroid normal, trachea midline, no adenopathy. Heart--normal S1 and S2. No murmurs, rubs or gallops. Lungs--clear bilaterally, no respiratory distress, no accessory muscle use. Abdomen--normal bowel sounds and soft. Nontender. Nondistended, no hernias or masses, no organomegaly. Extremities--no cyanosis or clubbing. No edema. There are good distal pulses b/l. Dermatologic--normal skin turgor, normal color, no abnormal lymph nodes, no rash. Neurologic--cranial nerves II through XII grossly intact. Rheumatologic--normal range of motion. Psychiatric--normal affect. Results & Data Vital Signs (Past 12 Hours) Vital Signs Temp Pulse Pulse Resp BP BP Pulse Ox 09/02/18 22:01 71 24 137/50 L 94 09/02/18 22:00 70 29 H 92 09/02/18 21:31 72 21 138/65 97 09/02/18 21:30 72 16 96 09/02/18 21:01 70 22 145/56 H 99 09/02/18 21:00 70 23 98 09/02/18 20:31 75 25 H 147/56 H 98 09/02/18 20:30 72 24 96 09/02/18 20:13 71 14 138/88 98 09/02/18 20:07 65 21 138/88 100 09/02/18 20:06 72 24 09/02/18 19:01 74 31 H 153/63 H 99 09/02/18 19:00 77 24 99 09/02/18 18:43 98 09/02/18 18:31 70 25 H 161/60 H 97 09/02/18 18:30 71 24 98 09/02/18 18:01 73 27 H 149/71 H 100 09/02/18 17:59 98 09/02/18 17:53 97.9 F 79 25 H 144/66 H 99 09/02/18 17:52 98 09/02/18 17:47 76 26 H 144/66 H 100 Laboratory Results Laboratory Results WBC 8.17 K/uL (4.8-10.8) 09/02/18 17:53 RBC 4.11 M/uL (4.2-5.4) L 09/02/18 17:53 Hgb 12.0 g/dL (12.0-16.0) 09/02/18 17:53 Hct 36.9 % (37-47) L 09/02/18 17:53 MCV 89.8 fL (80-100) 09/02/18 17:53 MCH 29.2 pg (25-34) 09/02/18 17:53 MCHC 32.5 g/dL (32-36) 09/02/18 17:53 RDW Std Deviation 51.2 fL (36.4-46.3) H 09/02/18 17:53 RDW Coeff of Anthony 15.6 % (11.5-14.5) H 09/02/18 17:53 Plt Count 186 K/uL (130-400) 09/02/18 17:53 MPV 8.9 fL (7.4-10.4) 09/02/18 17:53 Immature Gran % (Auto) 0.2 % 09/02/18 17:53 Neut % (Auto) 74.0 % 09/02/18 17:53 Lymph % (Auto) 14.9 % 09/02/18 17:53 [place] % (Auto) 7.6 % 09/02/18 17:53 Eos % (Auto) 3.1 % 09/02/18 17:53 Baso % (Auto) 0.2 % 09/02/18 17:53 Immature Gran # (Auto) 0.02 K/uL (0.00-0.02) 09/02/18 17:53 Neut # (Auto) 6.04 K/uL (1.4-6.5) 09/02/18 17:53 Lymph # (Auto) 1.22 K/uL (1.2-3.4) 09/02/18 17:53 [place] # (Auto) 0.62 K/uL (0.11-0.59) H 09/02/18 17:53 Eos # (Auto) 0.25 K/uL (0-0.5) 09/02/18 17:53 Baso # (Auto) 0.02 K/uL (0-0.2) 09/02/18 17:53 PT 10.9 Seconds (9.0-12.0) 09/02/18 17:53 INR 1.1 (0.9-1.1) 09/02/18 17:53 APTT 27.7 Seconds (21.0-31.0) 09/02/18 17:53 PTT Ratio 1.0 09/02/18 17:53 Sodium 130 mmol/L (136-145) L 09/02/18 17:53 Potassium 4.8 mmol/L (3.5-5.1) 09/02/18 17:53 Chloride 95 mmol/L (98-107) L 09/02/18 17:53 Carbon Dioxide 29 mmol/L (21-32) 09/02/18 17:53 Anion Gap 6.0 (3-11) 09/02/18 17:53 BUN 57 mg/dl (7-18) H 09/02/18 17:53 Creatinine 1.91 mg/dl (0.6-1.2) H 09/02/18 17:53 Est Cr Clr Drug Dosing 18.5 ml/min 09/02/18 17:53 Est GFR ( Amer) 26.5 09/02/18 17:53 Est GFR (Non-Af Amer) 22.8 09/02/18 17:53 BUN/Creatinine Ratio 29.9 (10-20) H 09/02/18 17:53 Glucose 149 mg/dl (70-99) H 09/02/18 17:53 Calcium 8.8 mg/dl (8.5-10.1) 09/02/18 17:53 Total Bilirubin 0.5 mg/dl (0.2-1) 09/02/18 17:53 AST 23 U/L (15-37) 09/02/18 17:53 ALT 25 U/L (12-78) 09/02/18 17:53 Alkaline Phosphatase 80 U/L (45-117) 09/02/18 17:53 Troponin I < 0.015 ng/ml (0-0.045) 09/02/18 17:53 NT-Pro-B Natriuret Pep 51158 pg/ml (0-1800) H 09/02/18 17:53 Total Protein 6.7 gm/dl (6.4-8.2) 09/02/18 17:53 Albumin 3.4 gm/dl (3.4-5.0) 09/02/18 17:53 Globulin 3.3 gm/dl (2.5-4.0) 09/02/18 17:53 Albumin/Globulin Ratio 1.0 (0.9-2) 09/02/18 17:53 Urine Color Yellow 09/02/18 17:51 Urine Appearance Clear (Clear) 09/02/18 17:51 Urine pH 5.5 (4.5-7.5) 09/02/18 17:51 Ur Specific [place] 1.011 (1.000-1.030) 09/02/18 17:51 Urine Protein 1+ (Negative) H 09/02/18 17:51 Urine Glucose (UA) Negative (Negative) 09/02/18 17:51 Urine Ketones Negative (Negative) 09/02/18 17:51 Urine Blood Trace (Negative) H 09/02/18 17:51 Urine Nitrite Negative (Negative) 09/02/18 17:51 Urine Bilirubin Negative (Negative) 09/02/18 17:51 Urine Urobilinogen Negative (Negative) 09/02/18 17:51 Ur Leukocyte Esterase 2+ (Negative) H 09/02/18 17:51 Urine WBC (Auto) 10-30 /hpf (0-5) H 09/02/18 17:51 Urine RBC (Auto) 5-10 /hpf (0-4) H 09/02/18 17:51 U Hyaline Cast (Auto) 1-5 /lpf (0-5) 09/02/18 17:51 U Epithel Cells (Auto) 0-5 /lpf (0-5) 09/02/18 17:51 Urine Bacteria (Auto) 2+ (Negative) H 09/02/18 17:51 Digoxin 1.2 ng/ml (0.8-2.0) 09/02/18 17:53 Diagnostic Findings [place], [place] [phone] XRay Report Patient: KYE BROWN Date: 09/02/18 MR#: [id number]: spring Acct ID:[id number]: Date: 1930[facility] Zip: [place] [address] Age: 88Location: ED Sex: F Room/Bed: Att Phy: Diagnosis: SOB Candice Phy: Deion Downs MDService Date: 09/02/18 Fam Phy: Interpreting Phy: Sumit Schmid MD Admit Phy: Ordering Phy: Jarrod Ruffin DO cc: ~ SINGLE VIEW CHEST CLINICAL HISTORY: Dyspnea. FINDINGS: 2 AP, portable, upright chest radiographs are compared to study dated 06/30/2018. The examination is degraded by portable technique and patient rotation. A 2-lead cardiac pacemaker is unchanged in position and partially obscures the left mid chest. The patient is status post midline sternotomy. The heart is enlarged and there is atherosclerotic calcification of the thoracic aorta. The pulmonary vasculature is noncongested. Chronic interstitial thickening is unchanged. There is bibasilar atelectasis. No airspace consoli dation or large pleural effusion is identified. No pneumothorax is seen. The skeletal structures are osteopenic. Degenerative change is noted in the shoulders and thoracic spine. The bony thorax is grossly intact. IMPRESSION: 1. Cardiomegaly and cardiac pacemaker. There is no radiographic evidence of congestive failure. 2. There is no airspace consolidation or large pleural effusion. Electronically signed by: Sumit Schmid M.D. 09/02/2018 6:24 PM Dictated: 09/02/181822 Transcribed: 09/02/181822 [place], [place] [phone] Ultrasound Report Patient: KYE BROWN Date: 09/02/18 MR#: [id number]: 89 [address] Acct ID:[id number]: MICHELLE PERSONAL [facility]ARE Date: 1930[facility] Zip: [place] [address] Age: 88Location: ED Sex: F Room/Bed: Att Phy: Diagnosis: SOB Candice Phy: Deion Downs MDService Date: 09/02/18 Fam Phy: Interpreting Phy: Sumit Schmid MD Admit Phy: Ordering Phy: Jarrod Ruffin DO cc: ~ ULTRASOUND BILATERAL LOWER EXTREMITY VENOUS CLINICAL HISTORY: Bilateral leg pain. COMPARISON STUDY: Bilateral lower extremity venous ultrasound dated 11/21/2016. TECHNIQUE: Real-time, grayscale, and color Doppler sonography of the deep veins of the right and left lower extremity was performed from the inguinal crease to the calf. Compression and augmentation were utilized. FINDINGS: There is no sonographic evidence of deep venous thrombosis identified in the right or left lower extremity. The common femoral, superficial femoral, and popliteal veins are patent and normally compressible bilaterally. The greater saphenous vein and the profunda femoris vein at the junction with the common femoral vein are clear in both legs. The visualized calf veins are patent bilaterally. Portions the right calf were not visualized due to overlying bandaging material. Soft tissue edema is present in both legs. IMPRESSION: There is no sonographic evidence of deep venous thrombosis identif ied in the right or left lower extremity. Electronically signed by: Sumit Schmid M.D. 09/02/2018 8:21 PM Dictated: 09/02/182019 Transcribed: 09/02/182019 Code Status & VTE Plan Code Status Full code VTE Prophylaxis Plan VTE Prophylaxis will be ordered: Yes (1) Chest pain Chest pain type: unspecified Qualified Code(s): R07.9 - Chest pain, unspecified (2) UTI (urinary tract infection) Hematuria presence: without hematuria Urinary tract infection type: site unspecified Qualified Code(s): N39.0 - Urinary tract infection, site not specified
[2018-09-02] MEDS ORDERED: MAGNESIUM HYDROXIDE SUSP 30 ML UDC PO PRN (22:58)
[2018-09-02] MEDS ORDERED: ALUMINUM/MAGNESIUM SUSP 30 ML UDC PO PRN (22:58)
[2018-09-02] MEDS ORDERED: NITROGLYCERIN SL 0.4 MG/TAB TAB SL PRN (22:58)
[2018-09-02] MEDS ORDERED: CALCITRIOL 0.25 MCG CAPSULE PO SCH (22:58)
[2018-09-02] MEDS ORDERED: guaiFENesin 600 MG TABCR PO PRN (22:58)
[2018-09-02] MEDS ORDERED: POLYETHYLENE (MIRALAX) 17 GM PACK PO PRN (22:58)
[2018-09-02] MEDS ORDERED: MICONAZOLE NITRATE POWDER 43 GM TOP PRN (22:58)
[2018-09-02] MEDS ORDERED: ACETAMINOPHEN 325 MG TAB PO PRN (22:58)
[2018-09-02] MEDS ORDERED: LACTULOSE SYRUP 10 GM/15 ML BTL 473 ML PO PRN (22:58)
[2018-09-02] MEDS ORDERED: ONDANSETRON INJ 2 MG/ML 2 ML VIAL IV PRN (22:58)
--- NOTE | 2018-09-02 23:05 | Emergency Department Note ---
Entered by Orly Nixon acting as a scribe for History of Present Illness General Chief complaint: Shortness of Breath/Dyspnea Stated complaint: SOB Source: patient History of Present Illness Onset (ago): day(s) 4 Location: chest Severity: similar to prior episodes Pain Consistency: + other (worsening) Quality: + other (shortness of breath ) Associated symptoms: + chest pain (intermittent sharp with radiation to the left arm) and + other (positive leg swelling) The patient is a 88 year old female who presents to the Emergency Room with complaints of worsening shortness of breath that began four days prior to arrival. The patient states that this is similar to prior episodes of difficulty breathing. The patient states that she has had intermittent sharp chest pain that radiates to the left arm intermittent for the past several years. She states that she has this chest pain once or twice every day, and states that her most recent episode was at 1430, 3.5 hours prior to arrival. The patient states that she was admitted to the hospital several months ago, and states that when she left the hospital at 143 pounds. She states that several days ago her weight went up 153 pounds. The patient states that her legs have been swollen during this time. She states that she had a pacemaker placed about two months ago, and states that she previously had a cardiac stent placed six years ago. Home Medications Home Medications Medication Instructions Recorded Confirmed Type ascorbic acid (vitamin C) [Vitamin 500 mg PO QAM 04/24/18 09/02/18 History C] atorvastatin 10 mg PO QAM 04/24/18 09/02/18 History benzonatate 100 mg PO TID 04/24/18 09/02/18 History biotin 10,000 mcg PO QAM 04/24/18 09/02/18 History bumetanide 1 mg PO BID 04/24/18 09/02/18 History calcitriol 0.25 mg PO Q48H 04/24/18 09/02/18 History cholecalciferol (vitamin D3) 1,000 unit PO QAM 04/24/18 09/02/18 History [Vitamin D3] cranberry 0 mg PO BID 04/24/18 09/02/18 History digoxin 125 mcg PO 3XWK 04/24/18 09/02/18 History docusate sodium [Colace] 100 mg PO BID 04/24/18 09/02/18 History fluticasone propionate [Flonase 2 spray INTRANASAL DAILY 04/24/18 09/02/18 History Allergy Relief] lansoprazole 30 mg PO QAM 04/24/18 09/02/18 History levalbuterol HCl 0.63 mg INHALATION TID 04/24/18 09/02/18 History levothyroxine 75 mcg PO QAM 04/24/18 09/02/18 History loratadine 10 mg PO QAM 04/24/18 09/02/18 History magnesium oxide 0 mg PO QAM 04/24/18 09/02/18 History metoprolol tartrate 100 mg PO BID 04/24/18 09/02/18 History ondansetron 4 mg PO Q6H PRN 04/24/18 09/02/18 History tolterodine 2 mg PO BID 04/24/18 09/02/18 History nitroglycerin 0.4 mg SUBLINGUAL DIRECTED PRN 05/23/18 09/02/18 History escitalopram oxalate 5 mg PO DAILY 06/30/18 09/02/18 History guaifenesin [Mucinex] 600 mg PO Q12H PRN 06/30/18 09/02/18 History insulin glargine [Basaglar KwikPen 30 unit SUBCUT DAILY 06/30/18 09/02/18 History U-100 Insulin] lactulose 15 ml PO DAILY PRN 06/30/18 09/02/18 History miconazole nitrate 1 applic TOPICAL DIRECTED PRN 06/30/18 09/02/18 History nitrofurantoin macrocrystal 50 mg PO HS 06/30/18 09/02/18 History aspirin 81 mg tablet,delayed 81 mg PO Q2D tab 07/18/18 09/02/18 History release cyanocobalamin (vitamin B-12) 1,000 mcg PO DAILY 09/02/18 09/02/18 History [Vitamin B-12] olmesartan 20 mg PO HS 09/02/18 09/02/18 History Allergies Allergy/AdvReac Type Severity Reaction Status Date / Time fenofibrate Allergy Intermediate rash Verified 08/29/18 13:58 amoxicillin Allergy Unknown UNKNOWN Verified 08/29/18 13:58 calcium carbonate Allergy Unknown . Verified 08/29/18 13:58 Cipro Allergy Unknown . Verified 10/30/17 13:10 ciprofloxacin Allergy Unknown . Verified 08/29/18 13:58 diphenhydramine Allergy Unknown . Verified 08/29/18 13:58 fexofenadine Allergy Unknown UNKNOWN Verified 08/29/18 13:58 irbesartan Allergy Unknown UNKNOWN Verified 08/29/18 13:58 lidocaine Allergy Unknown . Verified 08/29/18 13:58 niacin Allergy Unknown RASH Verified 08/29/18 13:58 nystatin Allergy Unknown . Verified 08/29/18 13:58 Penicillins Allergy Unknown UNKNOWN Verified 08/29/18 13:58 Sulfa (Sulfonamide Allergy Unknown UNKNOWN Verified 08/29/18 13:58 Antibiotics) flumazenil AdvReac Intermediate DELIRIUM Verified 08/29/18 13:58 tomato AdvReac Unknown GI SYMPTOMS Verified 08/29/18 13:58 Past Med/Surg History Medical History COPD (chronic obstructive pulmonary disease) Depression Pacemaker (Chronic) DM (diabetes mellitus) (Chronic) Chest pain (Acute) SOB (shortness of breath) (Acute) Atrial fibrillation (Chronic) Hypertension (Chronic 05/10/14) GERD (gastroesophageal reflux disease) (Chronic) Renal failure (Chronic) Anxiety (Acute) CHF (congestive heart failure) (Chronic) Chronic kidney disease Hyponatremia Moderate to severe pulmonary hypertension Severe mitral regurgitation Surgical History S/P quintuple vessel bypass (Resolved) History of cardiac cath (Resolved) Social History Preferred Language: Vietnamese Communication Ability: Effective Ornament Setter Required: No Beliefs That Will Affect Care: Mormonism Mormonism Beliefs: Gnosticism Current Living Situation: Assisted Current Living Situation Comment: spring Other Information That Helps Us Care for You: No Feels Safe at Home: Yes Safety Concerns: Feels Safe At This Time Smoking Status: Never smoker Do You Dip or Chew Tobacco: No Hx Alcohol Use: No Hx Substance Use: No Review of Systems See HPI for pertinent positives & negatives. and A total of 10 systems reviewed and were otherwise negative Physical Exam Vital Signs Vital Signs - 24 hr 09/02/18 17:47 09/02/18 17:52 09/02/18 17:53 Temperature 36.6 C Temperature Source Oral Sepsis Recent Fever Within 48 Hours No Sepsis Action Taken by Nursing No Action Required Pulse Rate 76 79 Pulse Rate [Apical] Pulse Rate from SpO2 Sensor 75 Respiratory Rate 26 H 25 H Respiratory Effort / Characteristics Labored Respiratory Depth Shallow Respiratory Pattern Tachypnea Blood Pressure 144/66 H 144/66 H Blood Pressure [Left Arm] Blood Pressure Mean 92 92 Blood Pressure Mean [Left Arm] Blood Pressure Position [Left Arm] Pulse Oximetry 100 98 99 Oxygen Delivery Method Room Air Room Air 09/02/18 17:59 09/02/18 18:01 09/02/18 18:30 Temperature Temperature Source Sepsis Recent Fever Within 48 Hours Sepsis Action Taken by Nursing Pulse Rate 73 71 Pulse Rate [Apical] Pulse Rate from SpO2 Sensor 81 71 Respiratory Rate 27 H 24 Respiratory Effort / Characteristics Respiratory Depth Respiratory Pattern Blood Pressure 149/71 H Blood Pressure [Left Arm] Blood Pressure Mean 97 Blood Pressure Mean [Left Arm] Blood Pressure Position [Left Arm] Pulse Oximetry 98 100 98 Oxygen Delivery Method Room Air 09/02/18 18:31 09/02/18 18:43 09/02/18 19:00 Temperature Temperature Source Sepsis Recent Fever Within 48 Hours Sepsis Action Taken by Nursing Pulse Rate 70 77 Pulse Rate [Apical] Pulse Rate from SpO2 Sensor 71 73 Respiratory Rate 25 H 24 Respiratory Effort / Characteristics Respiratory Depth Respiratory Pattern Blood Pressure 161/60 H Blood Pressure [Left Arm] Blood Pressure Mean 93 Blood Pressure Mean [Left Arm] Blood Pressure Position [Left Arm] Pulse Oximetry 97 98 99 Oxygen Delivery Method Room Air 09/02/18 19:01 09/02/18 20:06 09/02/18 20:07 Temperature Temperature Source Sepsis Recent Fever Within 48 Hours Sepsis Action Taken by Nursing Pulse Rate 74 72 65 Pulse Rate [Apical] Pulse Rate from SpO2 Sensor 71 72 Respiratory Rate 31 H 24 21 Respiratory Effort / Characteristics Respiratory Depth Respiratory Pattern Blood Pressure 153/63 H 138/88 Blood Pressure [Left Arm] Blood Pressure Mean 93 104 Blood Pressure Mean [Left Arm] Blood Pressure Position [Left Arm] Pulse Oximetry 99 100 Oxygen Delivery Method 09/02/18 20:13 09/02/18 20:30 09/02/18 20:31 Temperature Temperature Source Sepsis Recent Fever Within 48 Hours Sepsis Action Taken by Nursing Pulse Rate 72 75 Pulse Rate [Apical] 71 Pulse Rate from SpO2 Sensor 71 72 Respiratory Rate 14 24 25 H Respiratory Effort / Characteristics Non-Labored Spontaneous Respiratory Depth Normal Respiratory Pattern Blood Pressure 147/56 H Blood Pressure [Left Arm] 138/88 Blood Pressure Mean 86 Blood Pressure Mean [Left Arm] 104 Blood Pressure Position [Left Arm] Lying Pulse Oximetry 98 96 98 Oxygen Delivery Method Room Air 09/02/18 21:00 09/02/18 21:01 09/02/18 21:30 Temperature Temperature Source Sepsis Recent Fever Within 48 Hours Sepsis Action Taken by Nursing Pulse Rate 70 70 72 Pulse Rate [Apical] Pulse Rate from SpO2 Sensor 70 70 75 Respiratory Rate 23 22 16 Respiratory Effort / Characteristics Respiratory Depth Respiratory Pattern Blood Pressure 145/56 H Blood Pressure [Left Arm] Blood Pressure Mean 85 Blood Pressure Mean [Left Arm] Blood Pressure Position [Left Arm] Pulse Oximetry 98 99 96 Oxygen Delivery Method 09/02/18 21:31 09/02/18 22:00 09/02/18 22:01 Temperature Temperature Source Sepsis Recent Fever Within 48 Hours Sepsis Action Taken by Nursing Pulse Rate 72 70 71 Pulse Rate [Apical] Pulse Rate from SpO2 Sensor 74 71 71 Respiratory Rate 21 29 H 24 Respiratory Effort / Characteristics Respiratory Depth Respiratory Pattern Blood Pressure 138/65 137/50 L Blood Pressure [Left Arm] Blood Pressure Mean 89 79 Blood Pressure Mean [Left Arm] Blood Pressure Position [Left Arm] Pulse Oximetry 97 92 94 Oxygen Delivery Method 09/02/18 22:02 Temperature Temperature Source Sepsis Recent Fever Within 48 Hours Sepsis Action Taken by Nursing Pulse Rate 77 Pulse Rate [Apical] Pulse Rate from SpO2 Sensor 74 Respiratory Rate 30 H Respiratory Effort / Characteristics Respiratory Depth Respiratory Pattern Blood Pressure Blood Pressure [Left Arm] Blood Pressure Mean Blood Pressure Mean [Left Arm] Blood Pressure Position [Left Arm] Pulse Oximetry 94 Oxygen Delivery Method GENERAL: Sitting up in bed. Alert, well appearing, well nourished, no distress, non-toxic EYE EXAM: normal conjunctiva OROPHARYNX: no exudate, no erythema, lips, buccal mucosa, and tongue normal and mucous membranes are moist NECK: supple, no nuchal rigidity, no adenopathy, non-tender. Mild JVD. LUNGS: Lung sounds diminished at bases. Normal chest wall mechanics. HEART: no murmurs, S1 normal and S2 normal ABDOMEN: abdomen soft, non-tender, normo-active bowel sounds, no masses, no rebound or guarding. : Vyas in place with clear urine. BACK: Back is symmetrical on inspection and there is no deformity, no midline tenderness, no CVA tenderness. SKIN: no rashes and no bruising UPPER EXTREMITIES: upper extremities are grossly normal. Fistula in right mid- right arm. Positive thrill and bruit. LOWER EXTREMITIES: Pitting edema bilaterally. NEURO EXAM: Normal sensorium, cranial nerves II-XII grossly intact, normal speech, no gross weakness of arms, no gross weakness of legs. Course ED COURSE: Vital signs were reviewed and showed normal. The patients medical record was reviewed and showed that the patient had a TTE done in April in 2019. The patient's EF was 40%. Concentric LVH. Global LV hypokinesis. V2 study on 04/28/18. The above diagnostic studies were performed and reviewed. ED treatments and interventions as stated above. 1800: The patient was evaluated in room B10. A complete history and physical examination was performed. 1899: I checked on and updated the patient. 2037: Upon reevaluation, the patient is doing well.I discussed my findings with the patient and she understands and agrees with the treatment plan. 2040: I discussed the case with Dr. [facility] Hospitalist. Based on the patients age, coexisting illnesses, exam and lab findings the decision to treat as an inpatient was made. The patient remained stable while under my care. The patient will be evaluated for further management. Administered Medications Discontinued Medications Aspirin (Aspirin) 324 mg PO NOW STA Stop: 09/02/18 18:51 Last Admin: 09/02/18 19:00 Dose: 324 mg Documented by: [id number] Furosemide (Lasix) 40 mg IV NOW STA Stop: 09/02/18 18:59 Last Admin: 09/02/18 19:01 Dose: 40 mg Documented by: [id number] Ondansetron HCl (Zofran) Confirm Administered Dose 4 mg .ROUTE .STK-MED ONE Stop: 09/02/18 19:05 Last Admin: 09/02/18 19:05 Dose: 4 mg Documented by: [id number] Ondansetron HCl (Zofran) 4 mg IV NOW STA Stop: 09/02/18 19:16 Last Admin: 09/02/18 19:16 Dose: Not Given Documented by: [id number] Medical Decision Making Differential Diagnosis Differential diagnoses includes but is not limited to pneumonia, bronchitis, COPD/Asthma exacerbation, pneumothorax, pulmonary embolism, congestive heart failure, acute coronary syndrome Medical Records Attestation: I reviewed the patient's medical records. Home Medications Current Medication List: was personally reviewed by me Laboratory Data Attestation: I reviewed the patient's lab results. Result diagrams: 09/02/18 17:53 09/02/18 17:53 Lab Results 09/02/18 09/02/18 09/02/18 Range/Units 17:51 17:53 17:53 WBC 8.17 (4.8-10.8) K/uL RBC 4.11 L (4.2-5.4) M/uL Hgb 12.0 (12.0-16.0) g/dL Hct 36.9 L (37-47) % MCV 89.8 (80-100) fL MCH 29.2 (25-34) pg MCHC 32.5 (32-36) g/dL RDW Std Deviation 51.2 H (36.4-46.3) fL RDW Coeff of Anthony 15.6 H (11.5-14.5) % Plt Count 186 (130-400) K/uL MPV 8.9 (7.4-10.4) fL Immature Gran % (Auto) 0.2 % Neut % (Auto) 74.0 % Lymph % (Auto) 14.9 % Atkinson % (Auto) 7.6 % Eos % (Auto) 3.1 % Baso % (Auto) 0.2 % Immature Gran # (Auto) 0.02 (0.00-0.02) K/uL Neut # (Auto) 6.04 (1.4-6.5) K/uL Lymph # (Auto) 1.22 (1.2-3.4) K/uL Atkinson # (Auto) 0.62 H (0.11-0.59) K/uL Eos # (Auto) 0.25 (0-0.5) K/uL Baso # (Auto) 0.02 (0-0.2) K/uL PT 10.9 (9.0-12.0) Seconds INR 1.1 (0.9-1.1) APTT 27.7 (21.0-31.0) Seconds PTT Ratio 1.0 Sodium (136-145) mmol/L Potassium (3.5-5.1) mmol/L Chloride (98-107) mmol/L Carbon Dioxide (21-32) mmol/L Anion Gap (3-11) BUN (7-18) mg/dl Creatinine (0.6-1.2) mg/dl Est Cr Clr Drug Dosing ml/min Est GFR ( Amer) Est GFR (Non-Af Amer) BUN/Creatinine Ratio (10-20) Glucose (70-99) mg/dl Calcium (8.5-10.1) mg/dl Total Bilirubin (0.2-1) mg/dl AST (15-37) U/L ALT (12-78) U/L Alkaline Phosphatase (45-117) U/L Troponin I (0-0.045) ng/ml NT-Pro-B Natriuret Pep (0-1800) pg/ml Total Protein (6.4-8.2) gm/dl Albumin (3.4-5.0) gm/dl Globulin (2.5-4.0) gm/dl Albumin/Globulin Ratio (0.9-2) Urine Color Yellow Urine Appearance Clear (Clear) Urine pH 5.5 (4.5-7.5) Ur Specific [place] 1.011 (1.000-1.030) Urine Protein 1+ H (Negative) Urine Glucose (UA) Negative (Negative) Urine Ketones Negative (Negative) Urine Blood Trace H (Negative) Urine Nitrite Negative (Negative) Urine Bilirubin Negative (Negative) Urine Urobilinogen Negative (Negative) Ur Leukocyte Esterase 2+ H (Negative) Urine WBC (Auto) 10-30 H (0-5) /hpf Urine RBC (Auto) 5-10 H (0-4) /hpf U Hyaline Cast (Auto) 1-5 (0-5) /lpf U Epithel Cells (Auto) 0-5 (0-5) /lpf Urine Bacteria (Auto) 2+ H (Negative) Digoxin (0.8-2.0) ng/ml 09/02/18 09/02/18 Range/Units 17:53 17:53 WBC (4.8-10.8) K/uL RBC (4.2-5.4) M/uL Hgb (12.0-16.0) g/dL Hct (37-47) % MCV (80-100) fL MCH (25-34) pg MCHC (32-36) g/dL RDW Std Deviation (36.4-46.3) fL RDW Coeff of Anthony (11.5-14.5) % Plt Count (130-400) K/uL MPV (7.4-10.4) fL Immature Gran % (Auto) % Neut % (Auto) % Lymph % (Auto) % Atkinson % (Auto) % Eos % (Auto) % Baso % (Auto) % Immature Gran # (Auto) (0.00-0.02) K/uL Neut # (Auto) (1.4-6.5) K/uL Lymph # (Auto) (1.2-3.4) K/uL Atkinson # (Auto) (0.11-0.59) K/uL Eos # (Auto) (0-0.5) K/uL Baso # (Auto) (0-0.2) K/uL PT (9.0-12.0) Seconds INR (0.9-1.1) APTT (21.0-31.0) Seconds PTT Ratio Sodium 130 L (136-145) mmol/L Potassium 4.8 (3.5-5.1) mmol/L Chloride 95 L (98-107) mmol/L Carbon Dioxide 29 (21-32) mmol/L Anion Gap 6.0 (3-11) BUN 57 H (7-18) mg/dl Creatinine 1.91 H (0.6-1.2) mg/dl Est Cr Clr Drug Dosing 18.5 ml/min Est GFR ( Amer) 26.5 Est GFR (Non-Af Amer) 22.8 BUN/Creatinine Ratio 29.9 H (10-20) Glucose 149 H (70-99) mg/dl Calcium 8.8 (8.5-10.1) mg/dl Total Bilirubin 0.5 (0.2-1) mg/dl AST 23 (15-37) U/L ALT 25 (12-78) U/L Alkaline Phosphatase 80 (45-117) U/L Troponin I < 0.015 (0-0.045) ng/ml NT-Pro-B Natriuret Pep 51098 H (0-1800) pg/ml Total Protein 6.7 (6.4-8.2) gm/dl Albumin 3.4 (3.4-5.0) gm/dl Globulin 3.3 (2.5-4.0) gm/dl Albumin/Globulin Ratio 1.0 (0.9-2) Urine Color Urine Appearance (Clear) Urine pH (4.5-7.5) Ur Specific [place] (1.000-1.030) Urine Protein (Negative) Urine Glucose (UA) (Negative) Urine Ketones (Negative) Urine Blood (Negative) Urine Nitrite (Negative) Urine Bilirubin (Negative) Urine Urobilinogen (Negative) Ur Leukocyte Esterase (Negative) Urine WBC (Auto) (0-5) /hpf Urine RBC (Auto) (0-4) /hpf U Hyaline Cast (Auto) (0-5) /lpf U Epithel Cells (Auto) (0-5) /lpf Urine Bacteria (Auto) (Negative) Digoxin 1.2 (0.8-2.0) ng/ml Imaging Data Radiologist's Impression: Radiology results as stated below per my review and the radiologist's interpretation: SINGLE VIEW CHEST CLINICAL HISTORY: Dyspnea. FINDINGS: 2 AP, portable, upright chest radiographs are compared to study dated 06/30/2018. The examination is degraded by portable technique and patient rot ation. A 2-lead cardiac pacemaker is unchanged in position and partially obscures the left mid chest. The patient is status post midline sternotomy. The heart is enlarged and there is atherosclerotic calcification of the thoracic aorta. The pulmonary vasculature is noncongested. Chronic interstitial thickening is unchanged. There is bibasilar atelectasis. No airspace consolidation or large pleural effusion is identified. No pneumothorax is seen. The skeletal structures are osteopenic. Degenerative change is noted in the shoulders and thoracic spine. The bony thorax is grossly intact. IMPRESSION: 1. Cardiomegaly and cardiac pacemaker. There is no radiographic evidence of congestive failure. 2. There is no airspace consolidation or large pleural effusion. Electronically signed by: Sumit Schmid M.D. 09/02/2018 6:24 PM ULTRASOUND BILATERAL LOWER EXTREMITY VENOUS CLINICAL HISTORY: Bilateral leg pain. COMPARISON STUDY: Bilateral lower extremity venous ultrasound dated 11/21/2016. TECHNIQUE: Real-time, grayscale, and color Doppler sonography of the deep veins of the right and left lower extremity was performed from the inguinal crease to the calf. Compression and augmentation were utilized. FINDINGS: There is no sonographic evidence of deep venous thrombosis identified in the right or left lower extremity. The common femoral, superficial femoral, and popliteal veins are patent and normally compressible bilaterally. The greater saphenous vein and the profunda femoris vein at the junction with the common femoral vein are clear in both legs. The visualized calf veins are patent bilaterally. Portions the right calf were not visualized due to overlying bandaging material. Soft tissue edema is present in both legs. IMPRESSION: There is no sonographic evidence of deep venous thrombosis identified in the right or left lower extremity. Electronically signed by: Sumit Schmid M.D. 09/02/2018 8:21 PM ECG Data Attestation: I personally reviewed and interpreted this ECG as follows: Indication: SOB/dyspnea Rate (beats per minute): 77 Rhythm: atrial fibrillation and other (intermittently ventricularly paced) Findings: + LBBB, + ST depression (high lateral leads), + T-wave inversion (high lateral leads) and + left axis deviation Comparison ECG Date: from (06/30/2018) Change: no significant change Blood Pressure Blood Pressure Findings: Normal blood pressure MDM Narrative Patient is an 88-year-old female who presents the ER for shortness of breath which is been present and worsening for the past 4 days. History of previous CABG with previous stents in EF of 40%. She notes that she has had shortness of breath for the past 4 days worsening associated with some left-sided chest pain. Patient admits to increased swelling of her legs and her weight has jumped up to the 150s. She normally runs about 143. Vitals show she is slightly hypertensive. BMP along with LFTs show a creatinine 1.9 consistent with previous. BUN is elevated at 57. Sodium is low at 130 consistent with previous. LFTs and troponin was unremarkable. UA with a questionable UTI but she initially denies all urinary symptoms. Digoxin was 1.2. Chest x-ray with pleural effusions. Patient was given IV Lasix. She was given aspirin as well. She was updated bedside. EKG was unchanged from previous. She was discussed with the hospitalist and admitted for further work-up. Impression & Plan Chest pain, Dyspnea, UTI (urinary tract infection) Discharge Plan Visit Data Chief Complaint: Shortness of Breath/Dyspnea Stated Complaint: SOB ED Provider: Jarrod Ruffin Discharge Problem: Chest pain, Dyspnea, UTI (urinary tract infection) Patient Disposition: Being Evaluated by Hospitalist Discharge Instructions Interventions: ED Discharge Assessment Last Done: 09/02/18 22:32 Discharge Problem: Chest pain Qualifiers: Chest pain type: unspecified Qualified Code(s): R07.9 - Chest pain, unspecified Dyspnea Qualifiers: Dyspnea type: unspecified Qualified Code(s): R06.00 - Dyspnea, unspecified UTI (urinary tract infection) Qualifiers: Urinary tract infection type: site unspecified Hematuria presence: without hematuria Qualified Code(s): N39.0 - Urinary tract infection, site not specified The scribe's documentation has been prepared under my direction and personally reviewed by me in its entirety. I confirm that the note above accurately reflects all work, treatment, procedures, and medical decision making performed by me.
[2018-09-02] MEDS: cefTRIAXone SODIUM 1,000 MG in DEXTROSE 5% 50 ML IV SCH (23:45)
[2018-09-02] MEDS: DOCUSATE SODIUM 100 MG CAP PO SCH (23:47)
[2018-09-02] MEDS: METOPROLOL TARTRATE 100 MG TAB PO SCH (23:47)
[2018-09-02] MEDS: TOLTERODINE TARTRATE 2 MG TAB PO SCH (23:48)
[2018-09-03 05:56] LABS: Basophils # (auto) 0.01 K/uL (0-0.2); Basophils % (auto) 0.2 %; Eosinophils # (auto) 0.36 K/uL (0-0.5); Eosinophils % (auto) 5.5 %; Hematocrit (blood only) 36.2 % (37-47); Hemoglobin 11.8 g/dL (12.0-16.0); Immature Granulocytes # (auto) 0.01 K/uL (0.00-0.02); Immature Granulocytes % (auto) 0.2 %; Lymphocytes # (auto) 0.97 K/uL (1.2-3.4); Lymphocytes % (auto) 14.7 %; Mean Corpuscular Hgb Conc 32.6 g/dL (32-36); Mean Corpuscular Volume 90.7 fL (80-100); Mean Platelet Volume 8.7 fL (7.4-10.4); Monocytes # (auto) 0.52 K/uL (0.11-0.59); Monocytes % (auto) 7.9 %; Neutrophils # (auto) 4.73 K/uL (1.4-6.5); Neutrophils % (auto) 71.5 %; Platelet Count 166 K/uL (130-400); RDW Coefficient of Variation 15.6 % (11.5-14.5); RDW Standard Deviation 52.4 fL (36.4-46.3); Red Blood Count 3.99 M/uL (4.2-5.4)
[2018-09-03] MEDS: LEVOTHYROXINE SODIUM 75 MCG TABLET PO SCH (06:03)
[2018-09-03 06:09] LABS: INR 1.1 (0.9-1.1); Partial Thromboplastin Time 27.2 Seconds (21.0-31.0); Prothrombin Time 11.2 Seconds (9.0-12.0)
[2018-09-03] MEDS ORDERED: GLUCAGON FOR INJ 1 MG VIAL SQ PRN (06:12)
[2018-09-03] MEDS ORDERED: GLUCOSE 10 TABS/TUBE PO PRN (06:12)
[2018-09-03] MEDS ORDERED: GLUCOSE 40% GEL 15 GM TUBE PO PRN (06:12)
[2018-09-03] MEDS ORDERED: DEXTROSE 50% 50 ML SYRINGE IV PRN (06:12)
[2018-09-03 06:28] LABS: Alanine Aminotransferase 23 U/L (12-78); Albumin Level 2.9 gm/dl (3.4-5.0); Aspartate Aminotransferase 20 U/L (15-37); BUN Creatinine Ratio 27.4 (10-20); Blood Urea Nitrogen 56 mg/dl (7-18); Calcium 8.7 mg/dl (8.5-10.1); Carbon Dioxide 29 mmol/L (21-32); Chloride 97 mmol/L (98-107); Creatinine Clr Calc Pharmacy 17.3 ml/min; Est GFR (African American) 24.3; Glucose 138 mg/dl (70-99); Potassium 4.9 mmol/L (3.5-5.1); Sodium 133 mmol/L (136-145)
[2018-09-03 06:32] LABS: Albumin Globulin Ratio 0.9 (0.9-2); Alkaline Phosphatase 68 U/L (45-117); Bilirubin,Total 0.5 mg/dl (0.2-1); Globulin 3.2 gm/dl (2.5-4.0); Total Protein 6.1 gm/dl (6.4-8.2); Troponin I < 0.015 ng/ml (0-0.045)
[2018-09-03] MEDS: LEVALBUTEROL HCL 0.63 MG/3 ML NEB INH SCH ×3 (07:16→18:51)
--- NOTE | 2018-09-03 08:12 | Hospitalist Progress Note ---
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 Continue aspirin 81 mg daily, bumetanide 1 mg p.o. twice daily, digoxin 125 mcg p.o. 3 times per week and metoprolol tartrate 100 mg p.o. twice daily. serial troponins are negative, echo pending, previous echo with systolic and diastolic heart failure plus pulmonary htn and mod to severe MR (2) UTI (urinary tract infection): Vyas Cath associated uti poa Follow urine culture and sensitivity. Place on ceftriaxone 1 g IV daily (3) Hyponatremia: Chronic issue, likely associated with diuretic use. (4) Anxiety: Continue Escitalopram 5 mg p.o. daily. (5) Hyperlipidemia: Continue atorvastatin 10 mg p.o. every morning. (6) Vitamin B12 deficiency: Continue vitamin B12 supplement 1000 international units every morning (7) Hypertension: pt has this controlled with bumex, olmesartan, metoprolol (8) Hypothyroidism (acquired): Continue levothyroxine sodium 75 mcg p.o. every morning (9) GERD (gastroesophageal reflux disease): On lansoprazole 30 mg p.o. every morning, can change to formulary substitute pantoprazole 40 mg in the morning. (10) Bladder spasms: Continue tolterodine 2 mg p.o. twice daily (11) DM (diabetes mellitus): Continue insulin glargine 30 units subcu every morning. With NovoLog coverage per scale. Placed on Accu-Cheks before meals and at bedtime (12) Pacemaker: See above (13) COPD (chronic obstructive pulmonary disease): Continue levalbuterol nebulizer 0.60 mg inhaled 3 times daily (14) CKD (chronic kidney disease), stage III: Creatinine 1.91 upon admission, has increased slightly with diuretic use, will have typical bumex changed to iv to see if improves (15) Atrial fibrillation: Continue digoxin and metoprolol for help with rate control but pt does have pacer, will enterrogate pacer Subjective pt states she feels sick, she is nauseated, no diarrhea, no chest pain but reproducible dyspnea with exertion. Review of Systems Review of Systems: ROS: well nourished well developed. No double vision blurry vision No problems with speech or swallowing No palpitations, chest pain or pressure No Wheezing feels dyspnea on exertion No abdominal pain has some nauseawithout vomiting or diarrhea No burning urine urine frequency or changes in color No focal joint pain or muscle pain open areas on distal legs, weeping seeing wound care No focused back pain or numbness or loss of strength No changes in memory or confusion Physical Exam Physical Exam: The patient appeared well nourished and normally developed. Vital signs as documented. Head exam is unremarkable. normocephalic, atraumatic Neck is without jugular venous distension, thyromegaly, or lymphademopathy Lungs are bi basilar crackles Cardiac exam reveals Rhythm is regular. PAULY Abdominal exam reveals normal bowel sounds, no masses, no organomegaly Extremities are mildly edematous and open areas have been dressed by wound care 09/03 Neurologic exam is A&Ox3, no focal deficits, strength is equal bilateral Psychologically seems neither anxious or depressed Skin is warm Dry with open areas as noted Results & Data Vital Signs (Past 12 Hours) Vital Signs Temp Pulse Pulse Resp BP BP Pulse Ox 09/03/18 07:17 66 18 90 09/03/18 06:57 36.3 C L 71 18 127/67 97 09/02/18 23:33 36.7 C 72 20 121/61 92 09/02/18 22:33 73 21 149/36 H 93 09/02/18 22:32 71 23 149/36 H 94 09/02/18 22:30 75 17 96 09/02/18 22:02 77 30 H 94 09/02/18 22:01 71 24 137/50 L 94 09/02/18 22:00 70 29 H 92 09/02/18 21:31 72 21 138/65 97 09/02/18 21:30 72 16 96 09/02/18 21:01 70 22 145/56 H 99 09/02/18 21:00 70 23 98 09/02/18 20:31 75 25 H 147/56 H 98 09/02/18 20:30 72 24 96 09/02/18 20:13 71 14 138/88 98 (1) UTI (urinary tract infection) Hematuria presence: without hematuria Urinary tract infection type: site unspecified Qualified Code(s): N39.0 - Urinary tract infection, site not specified (2) Chest pain Chest pain type: unspecified Qualified Code(s): R07.9 - Chest pain, unspecified
[2018-09-03] MEDS ORDERED: NON-FORMULARY MEDICATION (Biotin 10,000 MCG) PO SCH (09:00)
[2018-09-03] MEDS ORDERED: CRANBERRY PO SCH (09:00)
[2018-09-03] MEDS: INSULIN ASPART 100 UNITS/ML 3 ML PEN SC SCH ×4 (09:13→21:01)
[2018-09-03] MEDS: BUMETANIDE 1 MG TAB PO SCH ×2 (09:14→16:50)
[2018-09-03] MEDS: LORATADINE 10 MG TAB PO SCH (09:15)
[2018-09-03] MEDS: TOLTERODINE TARTRATE 2 MG TAB PO SCH ×2 (09:16→21:44)
[2018-09-03] MEDS: DOCUSATE SODIUM 100 MG CAP PO SCH ×2 (09:16→21:44)
[2018-09-03] MEDS: HEPARIN SOD 5,000 UNIT/0.5 ML VIAL SQ SCH ×2 (09:17→21:45)
[2018-09-03] MEDS: FLUTICASONE PROPIONATE NA SPR 16 GM BTL NAE SCH (09:17)
[2018-09-03] MEDS: INSULIN GLARGINE SOLOSTAR 100 UNITS/ML 3 ML PEN SC SCH (09:18)
[2018-09-03] MEDS: ESCITALOPRAM OXALATE 10 MG TAB PO SCH (09:19)
[2018-09-03] MEDS: ATORVASTATIN 10 MG TAB PO SCH (09:19)
[2018-09-03] MEDS: MAGNESIUM OXIDE 400 MG TAB PO SCH (09:20)
[2018-09-03] MEDS: LANSOPRAZOLE 30 MG SOLTAB PO SCH (09:20)
[2018-09-03] MEDS: METOPROLOL TARTRATE 100 MG TAB PO SCH ×2 (09:20→21:43)
[2018-09-03] MEDS: CHOLECALCIFEROL 1,000 UNITS TAB PO SCH (09:21)
[2018-09-03] MEDS: CYANOCOBALAMIN 500 MCG TABLET (VITAMIN B-12) PO SCH (09:21)
[2018-09-03] MEDS: ASCORBIC ACID 500 MG TAB PO SCH (09:21)
[2018-09-03] MEDS: DIGOXIN 0.125 MG TAB PO SCH (16:48)
[2018-09-03] MEDS: cefTRIAXone SODIUM 1,000 MG in DEXTROSE 5% 50 ML IV SCH (21:43)
[2018-09-03] MEDS: OLMESARTAN MEDOXOMIL 20 MG TAB PO SCH (21:44)
[2018-09-04] MEDS: LEVOTHYROXINE SODIUM 75 MCG TABLET PO SCH (06:22)
--- NOTE | 2018-09-04 06:50 | Hospitalist Progress Note ---
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 twice daily, digoxin 125 mcg p.o. 3 times per week and metoprolol tartrate 100 mg p.o. twice daily. serial troponins are negative (2) UTI (urinary tract infection): Vyas Cath associated uti poa Follow urine culture and sensitivity. Place on ceftriaxone 1 g IV daily, has Klebsiella that is sensitive to Ceftriaxone, will recommend one week of treatment (3) Hyponatremia: Chronic issue, likely associated with diuretic use. (4) Anxiety: Continue Escitalopram 5 mg p.o. daily. (5) Hyperlipidemia: Continue atorvastatin 10 mg p.o. every morning. (6) Vitamin B12 deficiency: Continue vitamin B12 supplement 1000 international units every morning (7) Hypertension: pt has this controlled with bumex, olmesartan, metoprolol (8) Hypothyroidism (acquired): Continue levothyroxine sodium 75 mcg p.o. every morning (9) GERD (gastroesophageal reflux disease): On lansoprazole 30 mg p.o. every morning, can change to formulary substitute pantoprazole 40 mg in the morning. (10) Bladder spasms: Continue tolterodine 2 mg p.o. twice daily (11) DM (diabetes mellitus): Continue insulin glargine 30 units subcu every morning. With NovoLog coverage per scale. Placed on Accu-Cheks before meals and at bedtime (12) Pacemaker: See above (13) COPD (chronic obstructive pulmonary disease): Continue levalbuterol nebulizer 0.60 mg inhaled 3 times daily (14) CKD (chronic kidney disease), stage III: Creatinine 1.91 upon admission, has increased slightly with diuretic use, will have typical bumex changed to iv to see if improves (15) Atrial fibrillation: Continue digoxin and metoprolol for help with rate control but pt does have pacer Subjective Patient remains limited she is has less nausea she is less short of breath Review of Systems Review of Systems: ROS: well nourished well developed. No double vision blurry vision No problems with speech or swallowing No palpitations, chest pain or pressure No Wheezing or breathing issues No abdominal pain still with mild nausea but no vomiting No burning urine urine frequency or changes in color No focal joint pain or muscle pain No skin rashes or oral lesions No unusual bruising or bleeding No focused back pain or numbness or loss of strength No changes in memory or confusion Physical Exam Physical Exam: The patient appeared well nourished and normally developed. Vital signs as documented. Head exam is unremarkable. normocephalic, atraumatic Neck is without jugular venous distension, thyromegaly, or lymphademopathy Lungs are clear to auscultation and percussion. Cardiac exam reveals reg with PAULY Abdominal exam reveals normal bowel sounds, no masses, no organomegaly Extremities are nonedematous and both pedal pulses are present Neurologic exam is A&Ox3, no focal deficits, strength is equal bilateral Psychologically seems neither anxious or depressed Skin is warm Dry without bruises or lesions Results & Data Vital Signs (Past 12 Hours) Vital Signs Temp Pulse Resp BP Pulse Ox 09/03/18 23:19 37.0 C 71 18 128/73 91 09/03/18 19:35 36.5 C 71 20 142/76 H 96 09/03/18 18:51 69 16 93 (1) UTI (urinary tract infection) Hematuria presence: without hematuria Urinary tract infection type: site unspecified Qualified Code(s): N39.0 - Urinary tract infection, site not specified (2) Chest pain Chest pain type: unspecified Qualified Code(s): R07.9 - Chest pain, unspecified
[2018-09-04 06:58] LABS: Basophils # (auto) 0.03 K/uL (0-0.2); Basophils % (auto) 0.5 %; Eosinophils # (auto) 0.29 K/uL (0-0.5); Eosinophils % (auto) 4.4 %; Hematocrit (blood only) 38.4 % (37-47); Hemoglobin 12.3 g/dL (12.0-16.0); Immature Granulocytes # (auto) 0.01 K/uL (0.00-0.02); Immature Granulocytes % (auto) 0.2 %; Lymphocytes # (auto) 1.35 K/uL (1.2-3.4); Lymphocytes % (auto) 20.5 %; Mean Corpuscular Volume 90.6 fL (80-100); Mean Platelet Volume 8.5 fL (7.4-10.4); Monocytes # (auto) 0.56 K/uL (0.11-0.59); Monocytes % (auto) 8.5 %; Neutrophils # (auto) 4.33 K/uL (1.4-6.5); Neutrophils % (auto) 65.9 %; Platelet Count 176 K/uL (130-400); RDW Coefficient of Variation 15.4 % (11.5-14.5); RDW Standard Deviation 51.6 fL (36.4-46.3); Red Blood Count 4.24 M/uL (4.2-5.4); White Blood Count 6.57 K/uL (4.8-10.8)
[2018-09-04 07:07] LABS: INR 1.1 (0.9-1.1); Prothrombin Time 11.2 Seconds (9.0-12.0)
[2018-09-04] MEDS: LEVALBUTEROL HCL 0.63 MG/3 ML NEB INH SCH ×3 (07:22→19:42)
[2018-09-04 07:34] LABS: Albumin Level 2.9 gm/dl (3.4-5.0); BUN Creatinine Ratio 26.9 (10-20); Calcium 8.7 mg/dl (8.5-10.1); Creatinine Clr Calc Pharmacy 16.6 ml/min; Est GFR (African American) 23.2; Potassium 4.8 mmol/L (3.5-5.1)
[2018-09-04 07:39] LABS: Albumin Globulin Ratio 0.9 (0.9-2); Bilirubin,Total 0.5 mg/dl (0.2-1); Globulin 3.4 gm/dl (2.5-4.0); Total Protein 6.3 gm/dl (6.4-8.2)
[2018-09-04] MEDS ORDERED: ASPIRIN 81 MG ECTAB PO SCH (09:00)
[2018-09-04] MEDS: INSULIN ASPART 100 UNITS/ML 3 ML PEN SC SCH ×4 (09:01→21:03)
[2018-09-04] MEDS: LORATADINE 10 MG TAB PO SCH (09:08)
[2018-09-04] MEDS: BUMETANIDE 1 MG TAB PO SCH ×2 (09:08→18:26)
[2018-09-04] MEDS: DOCUSATE SODIUM 100 MG CAP PO SCH ×2 (09:09→21:04)
[2018-09-04] MEDS: TOLTERODINE TARTRATE 2 MG TAB PO SCH ×2 (09:09→21:05)
[2018-09-04] MEDS: HEPARIN SOD 5,000 UNIT/0.5 ML VIAL SQ SCH ×2 (09:11→21:05)
[2018-09-04] MEDS: MAGNESIUM OXIDE 400 MG TAB PO SCH (09:14)
[2018-09-04] MEDS: METOPROLOL TARTRATE 100 MG TAB PO SCH ×2 (09:14→21:04)
[2018-09-04] MEDS: CYANOCOBALAMIN 500 MCG TABLET (VITAMIN B-12) PO SCH (09:15)
[2018-09-04] MEDS: LANSOPRAZOLE 30 MG SOLTAB PO SCH (09:15)
[2018-09-04] MEDS: CHOLECALCIFEROL 1,000 UNITS TAB PO SCH (09:17)
[2018-09-04] MEDS: ATORVASTATIN 10 MG TAB PO SCH (09:17)
[2018-09-04] MEDS: ASCORBIC ACID 500 MG TAB PO SCH (09:17)
[2018-09-04] MEDS: ESCITALOPRAM OXALATE 10 MG TAB PO SCH (09:18)
[2018-09-04] MEDS: FLUTICASONE PROPIONATE NA SPR 16 GM BTL NAE SCH (10:34)
[2018-09-04] MEDS: INSULIN GLARGINE SOLOSTAR 100 UNITS/ML 3 ML PEN SC SCH (10:35)
[2018-09-04] MEDS: CARBOHYDRATES FOR HYPOGLYCEMIA PO PRN (16:30)
[2018-09-04] MEDS ORDERED: CALCITRIOL 0.25 MCG CAPSULE PO SCH (21:00)
[2018-09-04] MEDS: OLMESARTAN MEDOXOMIL 20 MG TAB PO SCH (21:05)
[2018-09-04] MEDS: cefTRIAXone SODIUM 1,000 MG in DEXTROSE 5% 50 ML IV SCH (21:42)
[2018-09-05] MEDS: LEVOTHYROXINE SODIUM 75 MCG TABLET PO SCH (06:34)
[2018-09-05 06:43] LABS: Basophils # (auto) 0.02 K/uL (0-0.2); Basophils % (auto) 0.3 %; Eosinophils # (auto) 0.26 K/uL (0-0.5); Hematocrit (blood only) 37.7 % (37-47); Hemoglobin 11.9 g/dL (12.0-16.0); Immature Granulocytes # (auto) 0.02 K/uL (0.00-0.02); Immature Granulocytes % (auto) 0.3 %; Lymphocytes # (auto) 1.04 K/uL (1.2-3.4); Lymphocytes % (auto) 16.1 %; Mean Corpuscular Hgb Conc 31.6 g/dL (32-36); Mean Corpuscular Volume 91.3 fL (80-100); Mean Platelet Volume 8.6 fL (7.4-10.4); Monocytes # (auto) 0.76 K/uL (0.11-0.59); Monocytes % (auto) 11.7 %; Neutrophils # (auto) 4.37 K/uL (1.4-6.5); Neutrophils % (auto) 67.6 %; Platelet Count 160 K/uL (130-400); RDW Coefficient of Variation 15.2 % (11.5-14.5); RDW Standard Deviation 51.4 fL (36.4-46.3); Red Blood Count 4.13 M/uL (4.2-5.4); White Blood Count 6.47 K/uL (4.8-10.8)
[2018-09-05 06:51] LABS: INR 1.1 (0.9-1.1); Prothrombin Time 11.1 Seconds (9.0-12.0)
[2018-09-05] MEDS: LEVALBUTEROL HCL 0.63 MG/3 ML NEB INH SCH ×2 (07:07→13:53)
[2018-09-05 07:08] LABS: BUN Creatinine Ratio 25.9 (10-20); Creatinine Clr Calc Pharmacy 16.3 ml/min; Est GFR (African American) 22.7; Est GFR (Non-African American) 19.6; Magnesium 2.2 mg/dl (1.8-2.4); Potassium 4.8 mmol/L (3.5-5.1)
[2018-09-05 07:11] LABS: Albumin Globulin Ratio 0.9 (0.9-2); Bilirubin,Total 0.5 mg/dl (0.2-1); Globulin 3.2 gm/dl (2.5-4.0); Total Protein 6.2 gm/dl (6.4-8.2)
[2018-09-05] MEDS: INSULIN ASPART 100 UNITS/ML 3 ML PEN SC SCH ×3 (08:59→16:48)
[2018-09-05] MEDS: CHOLECALCIFEROL 1,000 UNITS TAB PO SCH (09:00)
[2018-09-05] MEDS: DOCUSATE SODIUM 100 MG CAP PO SCH (09:00)
[2018-09-05] MEDS: ATORVASTATIN 10 MG TAB PO SCH (09:00)
[2018-09-05] MEDS: LORATADINE 10 MG TAB PO SCH (09:00)
[2018-09-05] MEDS: ESCITALOPRAM OXALATE 10 MG TAB PO SCH (09:00)
[2018-09-05] MEDS: CYANOCOBALAMIN 500 MCG TABLET (VITAMIN B-12) PO SCH (09:00)
[2018-09-05] MEDS ORDERED: INSULIN GLARGINE SOLOSTAR 100 UNITS/ML 3 ML PEN SC SCH (09:00)
[2018-09-05] MEDS: BUMETANIDE 1 MG TAB PO SCH ×2 (09:01→16:56)
[2018-09-05] MEDS: LANSOPRAZOLE 30 MG SOLTAB PO SCH (09:01)
[2018-09-05] MEDS: ASCORBIC ACID 500 MG TAB PO SCH (09:02)
[2018-09-05] MEDS: TOLTERODINE TARTRATE 2 MG TAB PO SCH (09:02)
[2018-09-05] MEDS: METOPROLOL TARTRATE 100 MG TAB PO SCH (09:02)
[2018-09-05] MEDS: HEPARIN SOD 5,000 UNIT/0.5 ML VIAL SQ SCH (09:03)
[2018-09-05] MEDS: MAGNESIUM OXIDE 400 MG TAB PO SCH (09:04)
[2018-09-05] MEDS: FLUTICASONE PROPIONATE NA SPR 16 GM BTL NAE SCH (09:04)
[2018-09-05] MEDS ORDERED: CONSULT PHARMACY STA (09:27)
--- NOTE | 2018-09-05 13:32 | Discharge Summary ---
Date of Service September 05, 2018 Admission HPI Per Admitting Provider The patient is a 88yo female who presents to the ED with main complaint of progressively worsening shortness of breath over the past 4 days, worsening urinary discomfort, but generally does not feel well with very little energy. Principal Diagnosis metabolic encephalopathy associated with a drug resistant saenz catheter associated Klebsiella UTI Present on admission acute on chronic systolic and diastolic heart failure Discharge Exam Respiratory normal respiratory effort, lungs clear to auscultation Cardiovascular Rate/Rhythm: regular rhythm Heart Sounds: + murmur Gastrointestinal (Abdomen) normal bowel sounds, soft, nontender, no hepatosplenomegaly Neurologic PERRL, EOMI, accommodation nl, no face palsy, no dysarthria CN's II-XI intact bilaterally and awake Discharge Data Allergies Allergy/AdvReac Type Severity Reaction Status Date / Time fenofibrate Allergy Intermediate rash Verified 08/29/18 13:58 amoxicillin Allergy Unknown UNKNOWN Verified 08/29/18 13:58 calcium carbonate Allergy Unknown . Verified 08/29/18 13:58 Cipro Allergy Unknown . Verified 10/30/17 13:10 ciprofloxacin Allergy Unknown . Verified 08/29/18 13:58 diphenhydramine Allergy Unknown . Verified 08/29/18 13:58 fexofenadine Allergy Unknown UNKNOWN Verified 08/29/18 13:58 irbesartan Allergy Unknown UNKNOWN Verified 08/29/18 13:58 lidocaine Allergy Unknown . Verified 08/29/18 13:58 niacin Allergy Unknown RASH Verified 08/29/18 13:58 nystatin Allergy Unknown . Verified 08/29/18 13:58 Penicillins Allergy Unknown UNKNOWN Verified 08/29/18 13:58 Sulfa (Sulfonamide Allergy Unknown UNKNOWN Verified 08/29/18 13:58 Antibiotics) flumazenil AdvReac Intermediate DELIRIUM Verified 08/29/18 13:58 tomato AdvReac Unknown GI SYMPTOMS Verified 08/29/18 13:58 Consultations 09/02/18 21:04 ED Decision to Admit Stat 09/02/18 22:58 Consult Case Management - Discharge Planning Routine Ordered Studies 09/02/18 19:07 US venous doppler LE Stat Hospital Course (1) Chest pain: Chest pain/hypertension/atrial fibrillation/pt has acute on chronic systolic and diastolic heart failure/pacemaker- Echo shows slighlty reduced systolic function, otherwise no new issues with chronic diastolic heart failure plus pulmonary htn and mod to severe MR Continue aspirin 81 mg daily, bumetanide 1 mg p.o. twice daily, digoxin 125 mcg p.o. 3 times per week and metoprolol tartrate 100 mg p.o. twice daily. serial troponins are negative (2) UTI (urinary tract infection): Saenz Cath associated uti poa Follow urine culture and sensitivity. Place on ceftriaxone 1 g IV daily, has Klebsiella that is sensitive to Ceftriaxone, will recommend one week of treatment (3) Hyponatremia: Chronic issue, likely associated with diuretic use. (4) Anxiety: Continue Escitalopram 5 mg p.o. daily. (5) Hyperlipidemia: Continue atorvastatin 10 mg p.o. every morning. (6) Vitamin B12 deficiency: Continue vitamin B12 supplement 1000 international units every morning (7) Hypertension: pt has this controlled with bumex, olmesartan, metoprolol (8) Hypothyroidism (acquired): Continue levothyroxine sodium 75 mcg p.o. every morning (9) GERD (gastroesophageal reflux disease): On lansoprazole 30 mg p.o. every morning, can change to formulary substitute pantoprazole 40 mg in the morning. (10) Bladder spasms: Continue tolterodine 2 mg p.o. twice daily (11) DM (diabetes mellitus): Continue insulin glargine 30 units subcu every morning. With NovoLog coverage per scale. Placed on Accu-Cheks before meals and at bedtime (12) Pacemaker: interrogated functioning well (13) COPD (chronic obstructive pulmonary disease): Continue levalbuterol nebulizer 0.60 mg inhaled 3 times daily (14) CKD (chronic kidney disease), stage III: Creatinine 1.91 upon admission, has increased slightly with diuretic use, will have typical bumex changed to iv to see if improves (15) Atrial fibrillation: Continue digoxin and metoprolol for help with rate control but pt does have pacer Total Time Total Time Spent Total Time Spent (In Minutes): greater than 30 minutes were required to prepare discharge Discharge Plan Discharge Items Patient Disposition: Personal Usp Reason For Visit: SOB Discharge Diagnosis: catheter associated uti, poa, drug resistant Klebsiella acute on chronic systolic and diastolic heart failure pulmonary htn Discharge Goals: Decrease discomfort and Diagnostic testing Activity: Resume your previous activity Non-emergency contact: Primary Care Provider Call non-emergency contact if: you have any medication questions Follow-up/Referrals: Deion Downs MD [Primary Care Provider] - Diet: Carb Consistent or DM2 and Low Sodium (2gm) Addtl Provider Instructions: please complete antibiotics change saenz cath on last day of antibiotics you may restart macrobid and cranberry after iv are complete Prescriptions: New ceftriaxone 1 gram recon soln 1 gm IV DAILY Qty: 4 RF: 0 Continued aspirin [Adult Low Dose Aspirin] 81 mg tablet,delayed release (DR/EC) 81 mg PO Q2D RF: 0 nitroglycerin 0.4 mg Tablet, Sublingual 0.4 mg Sublingual DIRECTED PRN (Reason: Chest Pain) RF: 0 atorvastatin 10 mg tablet 10 mg PO QAM RF: 0 levalbuterol HCl 0.63 mg/3 mL solution for nebulization 0.63 mg Inhalation TID RF: 0 metoprolol tartrate 100 mg tablet 100 mg PO BID RF: 0 levothyroxine 75 mcg tablet 75 mcg PO QAM RF: 0 tolterodine 2 mg tablet 2 mg PO BID RF: 0 ascorbic acid (vitamin C) [Vitamin C] 500 mg Tablet 500 mg PO QAM RF: 0 benzonatate 100 mg capsule 100 mg PO TID RF: 0 biotin 10,000 mcg Capsule 10,000 mcg PO QAM RF: 0 lansoprazole 30 mg capsule,delayed release(DR/EC) 30 mg PO QAM RF: 0 docusate sodium [Colace] 100 mg Capsule 100 mg PO BID RF: 0 bumetanide 1 mg tablet 1 mg PO BID RF: 0 digoxin 125 mcg tablet 125 mcg PO 3XWK RF: 0 ondansetron 4 mg tablet,disintegrating 4 mg PO Q6H PRN (Reason: Nausea And Vomiting) RF: 0 calcitriol 0.25 mcg capsule 0.25 mg PO Q48H RF: 0 cranberry 500 mg Capsule PO BID RF: 0 cholecalciferol (vitamin D3) [Vitamin D3] 1,000 unit Capsule 1,000 unit PO QAM RF: 0 loratadine 10 mg Capsule 10 mg PO QAM RF: 0 magnesium oxide 400 mg Capsule PO QAM RF: 0 fluticasone propionate [Flonase Allergy Relief] 50 mcg/actuation [place],Suspension 2 spray INTRANASAL DAILY RF: 0 nitrofurantoin macrocrystal 50 mg Capsule 50 mg PO HS RF: 0 miconazole nitrate 2 % Powder 1 applic TOPICAL DIRECTED PRN (Reason: FUNGAL DERMATITIS) RF: 0 escitalopram oxalate 10 mg Tablet 5 mg PO DAILY RF: 0 lactulose 10 gram/15 mL Solution 15 ml PO DAILY PRN (Reason: Constipation) RF: 0 Basaglar KwikPen U-100 Insulin 100 unit/mL (3 mL) Insulin Pen 30 unit SUBCUT DAILY RF: 0 guaifenesin [Mucinex] 600 mg Tablet Extended Release 12hr 600 mg PO Q12H PRN (Reason: Congestion) RF: 0 olmesartan 20 mg tablet 20 mg PO HS RF: 0 cyanocobalamin (vitamin B-12) [Vitamin B-12] 1,000 mcg Tablet 1,000 mcg PO DAILY RF: 0 Stand-Alone Forms: [facility] Discharge Orders: Discharge Order (Routine); Ordered 09/05/18 Ordered By: Chris Mancia Admission Data Admit Date/Time: 09/02/18 22:03 Attending Provider: Chris Mancia Admit Provider: Zachary Neumann Primary Care Provider: Deion Downs Other Providers: Zachary Neumann Service: Medical
[2018-09-05] MEDS ORDERED: cefTRIAXone SODIUM 1,000 MG in DEXTROSE 5% 50 ML IV SCH (15:00)
[2018-09-05] MEDS: DIGOXIN 0.125 MG TAB PO SCH (15:26)
[2018-09-05] MEDS: CARBOHYDRATES FOR HYPOGLYCEMIA PO PRN (16:49)
== END 2018-09-05 18:01 | disposition home health service (06) | DRG 698 ==
LOC: ED 17:38 → SUATTDRO 22:03 → 2N 22:03

== ENCOUNTER 2018-09-17 16:39 | Inpatient (IN) ==
[2018-09-17] MEDS ORDERED: cefTRIAXone SODIUM 1,000 MG/50 ML BAG IV STA (18:27)
[2018-09-17 19:44] LABS: Basophils # (auto) 0.02 K/uL (0-0.2); Basophils % (auto) 0.3 %; Eosinophils # (auto) 0.36 K/uL (0-0.5); Eosinophils % (auto) 4.8 %; Hematocrit (blood only) 36.3 % (37-47); Immature Granulocytes # (auto) 0.02 K/uL (0.00-0.02); Immature Granulocytes % (auto) 0.3 %; Lymphocytes # (auto) 1.15 K/uL (1.2-3.4); Lymphocytes % (auto) 15.3 %; Mean Corpuscular Hgb Conc 33.1 g/dL (32-36); Mean Corpuscular Volume 92.1 fL (80-100); Mean Platelet Volume 8.9 fL (7.4-10.4); Monocytes # (auto) 0.66 K/uL (0.11-0.59); Monocytes % (auto) 8.8 %; Neutrophils # (auto) 5.31 K/uL (1.4-6.5); Neutrophils % (auto) 70.5 %; Platelet Count 165 K/uL (130-400); RDW Coefficient of Variation 14.7 % (11.5-14.5); RDW Standard Deviation 49.3 fL (36.4-46.3); Red Blood Count 3.94 M/uL (4.2-5.4); White Blood Count 7.52 K/uL (4.8-10.8)
--- NOTE | 2018-09-17 19:54 | Emergency Department Note ---
Entered by Orly Nixon acting as a scribe for History of Present Illness General Chief complaint: Infection, Wound Stated complaint: INFECTION IN LEGS Time Seen by Provider: 09/17/18 18:16 Source: patient and old records reviewed History of Present Illness Onset (ago): day(s) 2 Location: lower extremity (lower ), left and right Severity: similar to prior episodes Pain Consistency: + other (worsening) Maximum Pain Intensity: 2 Quality: + other (infection) Associated symptoms: + fever/chills (negative fever; positive chills) and + other (positive "spitting up" black and intermittent bright red phlegm; positive increased urgency to urinate; positive redness; positive swelling) The patient is a 88 year old female who presents to the Emergency Room with complaints of a worsening bilateral lower leg infection that began about 2 days prior to arrival. The patient states that this began with an ulcer on her right lower leg about one month ago. The patient states that she was seen in the ED ab out 2 weeks ago for this infection, and states that she was put on IV antibiotics, and states that her last dose of antibiotics was about 1.5 weeks ago. She states that she currently has redness and swelling to both legs. The patient states that [facility] when this episode of redness began, and states that when she was seen today at the [facility], Dr. Tilley prescribed her antibiotics. The patient states that Dr. 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 The patient states that she has had chills during this time. The patient reports that she has been "spitting up" black phlegm and intermittently bright red blood. The patient was discharged from the hospital on 09/05/2018 after a catheter- associated UTI. The patient was on IV ceftriaxone. She was seen at the [facility] on 09/15/2018 where they noticed the redness to her legs for the first time. The patient was also seen at the [facility] on 09/17/2018. Home Medications Home Medications Medication Instructions Recorded Confirmed Type ascorbic acid (vitamin C) [Vitamin 500 mg PO QAM 04/24/18 09/17/18 History C] atorvastatin 10 mg PO QAM 04/24/18 09/17/18 History benzonatate 100 mg PO TID 04/24/18 09/17/18 History biotin 10,000 mcg PO QAM 04/24/18 09/17/18 History bumetanide 1 mg PO BID 04/24/18 09/17/18 History calcitriol 0.25 mg PO Q48H 04/24/18 09/17/18 History cholecalciferol (vitamin D3) 1,000 unit PO QAM 04/24/18 09/17/18 History [Vitamin D3] cranberry 1,000 mg PO BID 04/24/18 09/17/18 History digoxin 125 mcg PO 3XWK 04/24/18 09/17/18 History docusate sodium [Colace] 100 mg PO BID 04/24/18 09/17/18 History fluticasone propionate [Flonase 2 spray INTRANASAL DAILY 04/24/18 09/17/18 History Allergy Relief] lansoprazole 30 mg PO QAM 04/24/18 09/17/18 History levalbuterol HCl 0.63 mg INHALATION TID 04/24/18 09/17/18 History levothyroxine 75 mcg PO QAM 04/24/18 09/17/18 History loratadine 10 mg PO QAM 04/24/18 09/17/18 History metoprolol tartrate 100 mg PO BID 04/24/18 09/17/18 History ondansetron 4 mg PO Q6H PRN 04/24/18 09/17/18 History tolterodine 2 mg PO BID 04/24/18 09/17/18 History nitroglycerin 0.4 mg SUBLINGUAL DIRECTED PRN 05/23/18 09/17/18 History Basaglar KwikPen U-100 Insulin 32 unit SUBCUT QAM 06/30/18 09/17/18 History escitalopram oxalate 5 mg PO DAILY 06/30/18 09/17/18 History guaifenesin [Mucinex] 600 mg PO Q12H PRN 06/30/18 09/17/18 History lactulose 15 ml PO DAILY PRN 06/30/18 09/17/18 History miconazole nitrate 1 applic TOPICAL DIRECTED PRN 06/30/18 09/17/18 History nitrofurantoin macrocrystal 50 mg PO HS 06/30/18 09/17/18 History aspirin 81 mg tablet,delayed 81 mg PO Q2D tab 07/18/18 09/17/18 History release cyanocobalamin (vitamin B-12) 1,000 mcg PO DAILY 09/02/18 09/17/18 History [Vitamin B-12] olmesartan 20 mg PO HS 09/02/18 09/17/18 History magnesium 400 mg (as magnesium 400 mg PO QAM 09/08/18 09/17/18 History oxide) capsule cefadroxil 500 mg PO BID 09/17/18 09/17/18 History Allergies Allergy/AdvReac Type Severity Reaction Status Date / Time fenofibrate Allergy Intermediate rash Verified 09/17/18 20:06 amoxicillin Allergy Unknown UNKNOWN Verified 09/15/18 09:17 calcium carbonate Allergy Unknown . Verified 09/15/18 09:17 Cipro Allergy Unknown . Verified 10/30/17 13:10 ciprofloxacin Allergy Unknown . Verified 09/15/18 09:17 diphenhydramine Allergy Unknown . Verified 09/15/18 09:17 fexofenadine Allergy Unknown UNKNOWN Verified 09/17/18 20:05 irbesartan Allergy Unknown UNKNOWN Verified 09/17/18 20:04 lidocaine Allergy Unknown . Verified 09/15/18 09:17 niacin Allergy Unknown RASH Verified 09/17/18 20:05 nystatin Allergy Unknown . Verified 09/15/18 09:17 Penicillins Allergy Unknown UNKNOWN Verified 09/15/18 09:17 Sulfa (Sulfonamide Allergy Unknown UNKNOWN Verified 09/15/18 09:17 Antibiotics) flumazenil AdvReac Intermediate DELIRIUM Verified 09/15/18 09:17 tomato AdvReac Unknown GI SYMPTOMS Verified 09/15/18 09:11 Past Med/Surg History Medical History History of small bowel obstruction (Resolved) Wound of left ankle (Acute) Urinary retention (Acute) Restrictive airway disease (Acute) Mobility impaired (Acute) Insomnia (Acute) HFrEF (heart failure with reduced ejection fraction) (Acute) Esophageal dysmotility (Acute) Diverticulosis (Acute) Diabetic peripheral neuropathy (Acute) Debilitated patient (Acute) Constipation (Acute) Cellulitis and abscess of right leg (Acute) CKD (chronic kidney disease), stage IV (Acute) Arthritis (Acute) Adhesive capsulitis of both shoulders (Acute) Acute on chronic systolic heart failure (Acute) Acute edema (Acute) Valvular heart disease Shortness of breath at rest Multiple pulmonary nodules Hypothyroidism Glaucoma Chronic obstructive asthma CAD (coronary artery disease) COPD (chronic obstructive pulmonary disease) Depression Pacemaker (Chronic) DM (diabetes mellitus) (Chronic) pt cannot use generic insulin, has hypoglycemia Chest pain (Acute) SOB (shortness of breath) (Acute) Atrial fibrillation (Chronic) Hypertension (Chronic 05/10/14) GERD (gastroesophageal reflux disease) (Chronic) Renal failure (Chronic) Anxiety (Acute) CHF (congestive heart failure) (Chronic) Chronic kidney disease Hyponatremia Moderate to severe pulmonary hypertension Severe mitral regurgitation Surgical History S/P quintuple vessel bypass (Resolved) History of cardiac cath (Resolved) Social History Preferred Language: Georgian Communication Ability: Effective Bureau Chief Required: No Beliefs That Will Affect Care: Rastafarian Rastafarian Beliefs: Alevism Current Living Situation: Longterm Current Living Situation Comment: spring Other Information That Helps Us Care for You: No Feels Safe at Home: Yes Safety Concerns: Feels Safe At This Time Smoking Status: Never smoker Do You Dip or Chew Tobacco: No Hx Alcohol Use: No Hx Substance Use: No Review of Systems See HPI for pertinent positives & negatives. and A total of 10 systems reviewed and were otherwise negative Physical Exam Vital Signs Vital Signs - 24 hr 09/17/18 16:43 09/17/18 19:56 Temperature 37.0 C Temperature Source Oral Sepsis Recent Fever Within 48 Hours No Sepsis New/Unexplained Change in Mental Status No Sepsis Action Taken by Nursing No Action Required Pulse Rate 63 Pulse Rate [Apical] 67 Respiratory Rate 18 18 Blood Pressure 147/59 H Blood Pressure [Left Arm] 145/60 H Blood Pressure Mean 88 Blood Pressure Mean [Left Arm] 88 Pulse Oximetry 95 95 Oxygen Delivery Method Room Air Room Air GENERAL: Patient is in no acute distress. HEENT: No acute trauma, normocephalic atraumatic, mucous membranes moist, no n irvin congestion, no scleral icterus. NECK: No stridor, no adenopathy, no meningismus, trachea is midline. LUNGS: Decreased breath sounds bilaterally. No wheezing or rhonchi. No respiratory distress. HEART: Irregular rhythm with a 2/6 systolic murmur. Normal rate. ABDOMEN: Soft, nontender, bowel sounds positive, no hernias, no peritonitis. EXTREMITIES: Bilateral pedal edema with some erythema to the left foot and leg extending up to around the knee. There is some warmth present. The right lower extremity has a bandage in place. There is some erythema to the foot and ankle, the erythema is less than the amount on the left leg. NEUROLOGIC: Oriented x 3, no acute motor or sensory deficits, no focal weakness. SKIN: No rash, no jaundice, no diaphoresis. Course 1819: Past medical records reviewed. The patient was evaluated in room C9. A complete history and physical exam was performed. 2029: Upon reevaluation, the patient is doing well. I updated her on all results. She is in agreement with the treatment plan. 2038: I discussed the case with Dr. Neumann [facility] Hospitalist who accepts the patient for further evaluation. Consultations Consultation #1: I discussed the case with Dr. Neumann [facility] Hospitalist who accepts the patient for further evaluation. Time: 20:39 Administered Medications Acetaminophen (Tylenol) 650 mg PO Q4H PRN PRN Reason: pain/fever Stop: 10/17/18 22:25 Last Admin: 09/18/18 10:16 Dose: 650 mg Documented by: [id number] Ascorbic Acid (Vitamin C) 500 mg PO QAM [facility] Stop: 10/18/18 08:59 Last Admin: 09/18/18 07:45 Dose: 500 mg Documented by: [id number] Aspirin (Ecotrin Ectab) 81 mg PO Q2D [facility] Stop: 10/18/18 08:59 Last Admin: 09/18/18 07:42 Dose: 81 mg Documented by: [id number] Benzonatate (Tessalon Perle) 100 mg PO TID [facility] Stop: 10/18/18 08:59 Last Admin: 09/18/18 13:50 Dose: Not Given Documented by: [id number] Admin: 09/18/18 07:45 Dose: 100 mg Documented by: [id number] Bumetanide (Bumex) 1 mg PO BID17 [facility] Stop: 10/17/18 22:59 Last Admin: 09/18/18 07:41 Dose: 1 mg Documented by: [id number] Admin: 09/18/18 00:26 Dose: 1 mg Documented by: [id number] Calcitriol (Rocaltrol) 0.25 mcg PO Q48H [facility] Stop: 10/18/18 08:59 Last Admin: 09/18/18 07:41 Dose: 0.25 mcg Documented by: [id number] Cyanocobalamin (Vitamin B-12) 1,000 mcg PO DAILY [facility] Stop: 10/18/18 08:59 Last Admin: 09/18/18 07:45 Dose: 1,000 mcg Documented by: [id number] Docusate Sodium (Colace) 100 mg PO BID [facility] Stop: 10/18/18 08:59 Last Admin: 09/18/18 07:42 Dose: 100 mg Documented by: [id number] Escitalopram Oxalate (Lexapro) 5 mg PO DAILY [facility] Stop: 10/18/18 08:59 Last Admin: 09/18/18 07:43 Dose: 5 mg Documented by: [id number] Fluticasone Propionate (Flonase) 2 sprays ANTOINE DAILY [facility] Stop: 10/18/18 08:59 Last Admin: 09/18/18 07:42 Dose: 2 sprays Documented by: [id number] Guaifenesin (Mucinex) 600 mg PO Q12H PRN PRN Reason: Congestion Stop: 10/17/18 22:25 Last Admin: 09/18/18 11:53 Dose: 600 mg Documented by: [id number] Daptomycin 250 mg/ Syringe 5 mls @ 0 mls/min IV Q48H [facility]; Protocol Stop: 09/27/18 22:59 Last Admin: 09/18/18 00:25 Dose: 5 mls/min Documented by: [id number] Levalbuterol HCl (Xopenex 0.63 Mg/3 Ml Neb) 0.63 mg INH TIDR [facility] Stop: 10/18/18 08:59 Last Admin: 09/18/18 13:58 Dose: 0.63 mg Documented by: [id number] Admin: 09/18/18 07:08 Dose: 0.63 mg Documented by: [id number] Levothyroxine Sodium (Synthroid) 75 mcg PO DAILYBB [facility] Stop: 10/18/18 06:29 Last Admin: 09/18/18 06:37 Dose: 75 mcg Documented by: [id number] Loratadine (Claritin) 10 mg PO QAM [facility] Stop: 10/18/18 08:59 Last Admin: 09/18/18 07:41 Dose: 10 mg Documented by: [id number] Magnesium Oxide (Mag-Ox) 400 mg PO [facility] Stop: 10/18/18 08:59 Last Admin: 09/18/18 07:44 Dose: 400 mg Documented by: [id number] Metoprolol Tartrate (Lopressor) 100 mg PO BID [facility] Stop: 10/18/18 08:59 Last Admin: 09/18/18 07:44 Dose: 100 mg Documented by: [id number] Basaglar Insulin~Non -Formulary Patient's Own Med 20 ea SQ [facility] Stop: 10/18/18 08:59 Last Admin: 09/18/18 08:00 Dose: 20 units Documented by: [id number] Pantoprazole Sodium (Protonix) 40 mg PO [facility]; Protocol Stop: 10/18/18 08:59 Last Admin: 09/18/18 07:44 Dose: 40 mg Documented by: [id number] Tolterodine Tartrate (Detrol) 2 mg PO BID [facility] Stop: 10/18/18 08:59 Last Admin: 09/18/18 07:42 Dose: 2 mg Documented by: [id number] Vitamin D (Vitamin D3) 1,000 units PO [facility] Stop: 10/18/18 08:59 Last Admin: 09/18/18 07:45 Dose: 1,000 units Documented by: [id number] Discontinued Medications Daptomycin (Cubicin) 250 mg IV Q24H [facility]; Protocol Stop: 09/27/18 22:25 Last Admin: 09/18/18 00:58 Dose: Not Given Documented by: [id number] Ceftriaxone Sodium (Rocephin) 1,000 mg in 50 mls @ 100 mls/hr IV NOW STA Stop: 09/17/18 18:56 Last Infusion: 09/17/18 21:00 Dose: 0 mls/hr Documented by: [id number] Admin: 09/17/18 19:59 Dose: 100 mls/hr Documented by: [id number] Medical Decision Making Differential Diagnosis Differential diagnoses include cellulitis, failed outpatient treatment, electrol yte imbalance, anemia, renal failure, sepsis, bacteremia, and others were considered. Medical Records Attestation: I reviewed the patient's medical records. Home Medications Current Medication List: was personally reviewed by me Laboratory Data Attestation: I reviewed the patient's lab results. Result diagrams: 09/17/18 19:14 09/17/18 19:14 Lab Results 09/17/18 09/17/18 09/17/18 Range/Units 19:14 19:14 19:14 WBC 7.52 (4.8-10.8) K/uL RBC 3.94 L (4.2-5.4) M/uL Hgb 12.0 (12.0-16.0) g/dL Hct 36.3 L (37-47) % MCV 92.1 (80-100) fL MCH 30.5 (25-34) pg MCHC 33.1 (32-36) g/dL RDW Std Deviation 49.3 H (36.4-46.3) fL RDW Coeff of Anthony 14.7 H (11.5-14.5) % Plt Count 165 (130-400) K/uL MPV 8.9 (7.4-10.4) fL Immature Gran % (Auto) 0.3 % Neut % (Auto) 70.5 % Lymph % (Auto) 15.3 % Ripley % (Auto) 8.8 % Eos % (Auto) 4.8 % Baso % (Auto) 0.3 % Immature Gran # (Auto) 0.02 (0.00-0.02) K/uL Neut # (Auto) 5.31 (1.4-6.5) K/uL Lymph # (Auto) 1.15 L (1.2-3.4) K/uL Ripley # (Auto) 0.66 H (0.11-0.59) K/uL Eos # (Auto) 0.36 (0-0.5) K/uL Baso # (Auto) 0.02 (0-0.2) K/uL PT 10.6 (9.0-12.0) Seconds INR 1.0 (0.9-1.1) APTT 22.3 (21.0-31.0) Seconds PTT Ratio 0.8 Sodium 133 L (136-145) mmol/L Potassium 4.3 (3.5-5.1) mmol/L Chloride 98 (98-107) mmol/L Carbon Dioxide 27 (21-32) mmol/L Anion Gap 8.0 (3-11) BUN 56 H (7-18) mg/dl Creatinine 2.16 H (0.6-1.2) mg/dl Est Cr Clr Drug Dosing 16.0 ml/min Est GFR ( Amer) 22.8 Est GFR (Non-Af Amer) 19.7 BUN/Creatinine Ratio 25.8 H (10-20) Glucose 115 H (70-99) mg/dl Lactate (0.4-2.0) mmol/L Calcium 9.0 (8.5-10.1) mg/dl Magnesium 2.2 (1.8-2.4) mg/dl Total Bilirubin 0.6 (0.2-1) mg/dl AST 20 (15-37) U/L ALT 22 (12-78) U/L Alkaline Phosphatase 79 (45-117) U/L Total Protein 6.5 (6.4-8.2) gm/dl Albumin 3.3 L (3.4-5.0) gm/dl Globulin 3.2 (2.5-4.0) gm/dl Albumin/Globulin Ratio 1.0 (0.9-2) Digoxin (0.8-2.0) ng/ml 09/17/18 09/17/18 Range/Units 19:14 19:14 WBC (4.8-10.8) K/uL RBC (4.2-5.4) M/uL Hgb (12.0-16.0) g/dL Hct (37-47) % MCV (80-100) fL MCH (25-34) pg MCHC (32-36) g/dL RDW Std Deviation (36.4-46.3) fL RDW Coeff of Anthony (11.5-14.5) % Plt Count (130-400) K/uL MPV (7.4-10.4) fL Immature Gran % (Auto) % Neut % (Auto) % Lymph % (Auto) % Ripley % (Auto) % Eos % (Auto) % Baso % (Auto) % Immature Gran # (Auto) (0.00-0.02) K/uL Neut # (Auto) (1.4-6.5) K/uL Lymph # (Auto) (1.2-3.4) K/uL Ripley # (Auto) (0.11-0.59) K/uL Eos # (Auto) (0-0.5) K/uL Baso # (Auto) (0-0.2) K/uL PT (9.0-12.0) Seconds INR (0.9-1.1) APTT (21.0-31.0) Seconds PTT Ratio Sodium (136-145) mmol/L Potassium (3.5-5.1) mmol/L Chloride (98-107) mmol/L Carbon Dioxide (21-32) mmol/L Anion Gap (3-11) BUN (7-18) mg/dl Creatinine (0.6-1.2) mg/dl Est Cr Clr Drug Dosing ml/min Est GFR ( Amer) Est GFR (Non-Af Amer) BUN/Creatinine Ratio (10-20) Glucose (70-99) mg/dl Lactate 0.9 (0.4-2.0) mmol/L Calcium (8.5-10.1) mg/dl Magnesium (1.8-2.4) mg/dl Total Bilirubin (0.2-1) mg/dl AST (15-37) U/L ALT (12-78) U/L Alkaline Phosphatase (45-117) U/L Total Protein (6.4-8.2) gm/dl Albumin (3.4-5.0) gm/dl Globulin (2.5-4.0) gm/dl Albumin/Globulin Ratio (0.9-2) Digoxin 1.5 (0.8-2.0) ng/ml Blood Pressure Blood Pressure Findings: Elevated blood pressure Blood Pressure Disposition: further management by hospitalist MDM Narrative There is no leukocytosis or concerning anemia. No coagulopathy. Renal panel testing shows a higher creatinine, this is baseline for the patient. No elevation to the liver enzymes. Digoxin level was not toxic. Blood cultures are pending. Lactic acid level was not elevated making sepsis less likely. On exam, the patient did have a bilateral lower extremity cellulitis, worse on the left. Patient received IV ceftriaxone as antibiotic coverage. The patient has failed outpatient treatment for her cellulitis. She was sent here to the ED for IV antibiotics as she has multiple allergies and has in the past required IV antibiotic's for infections. I did speak to the patient and case management. The on-call hospitalist was consulted. Patient is currently stable and resting comfortably. She is aware of all her findings. Impression & Plan Cellulitis of both lower extremities, Failure of outpatient treatment Discharge Plan Visit Data *Final* Discharge Date/Time: 09/17/18 22:21 Chief Complaint: Infection, Wound Stated Complaint: INFECTION IN LEGS ED Provider: Sumit Porras Discharge Problem: Cellulitis of both lower extremities, Failure of outpatient treatment Patient Disposition: Admitted As Inpatient Discharge Instructions Interventions: ED Discharge Assessment Last Done: 09/17/18 22:21 The scribe's documentation has been prepared under my direction and personally reviewed by me in its entirety. I confirm that the note above accurately reflects all work, treatment, procedures, and medical decision making performed by me.
[2018-09-17 20:03] LABS: Albumin Level 3.3 gm/dl (3.4-5.0); BUN Creatinine Ratio 25.8 (10-20); Est GFR (African American) 22.8; Est GFR (Non-African American) 19.7; Globulin 3.2 gm/dl (2.5-4.0); Magnesium 2.2 mg/dl (1.8-2.4); Potassium 4.3 mmol/L (3.5-5.1); Total Protein 6.5 gm/dl (6.4-8.2)
[2018-09-17 20:04] LABS: Bilirubin,Total 0.6 mg/dl (0.2-1)
[2018-09-17 20:08] LABS: Partial Thromboplastin Ratio 0.8; Partial Thromboplastin Time 22.3 Seconds (21.0-31.0); Prothrombin Time 10.6 Seconds (9.0-12.0)
--- NOTE | 2018-09-17 21:42 | History & Physical Report ---
Date of Service September 17, 2018 Assessment & Plan (1) Cellulitis of both lower extremities: Cellulitis of bilateral lower extremities/early ulceration medial aspect right lower extremity- Vancomycin IV and ceftriaxone IV Consult wound care. Consult infectious disease Dr. Tilley. Margins of infections marked bilaterally. Present on Admission?: Yes (2) CKD (chronic kidney disease), stage IV: Creatinine 2.16 upon admission, with range 1.95-2.45. Follow serial laboratories. Present on Admission?: Yes (3) CAD (coronary artery disease): CAD/hypertension/CHF- Continue metoprolol tartrate, on losartan, aspirin, bumetanide and digoxin. Present on Admission?: Yes (4) Hypothyroidism: Continue levothyroxine sodium 75 mcg every morning. Present on Admission?: Yes (5) Hyperlipidemia: Continue atorvastatin 10 mg every morning. Present on Admission?: Yes (6) CHF (congestive heart failure): See above Present on Admission?: Yes (7) GERD (gastroesophageal reflux disease): Lansoprazole to pantoprazole Present on Admission?: Yes (8) Hypertension: See above Present on Admission?: Yes (9) Anxiety: Continue Lexapro Present on Admission?: Yes (10) Atrial fibrillation: See above Present on Admission?: Yes (11) COPD (chronic obstructive pulmonary disease): Continue usual inhalers Present on Admission?: Yes (12) Bladder spasms: Continue tolterodine Present on Admission?: Yes (13) Diabetes mellitus: Continue home Basaglar, but decreased from 32 to 20 units subcu every morning. Placed on Accu-Cheks before meals and at bedtime with NovoLog coverage per scale. Present on Admission?: Yes History of Present Illness Chief Complaint: The patient presents to the emergency department with complaint of infection in her legs after being seen in the wound care clinic 2 days previously, and then seen by Dr. Tilley from infectious disease earlier in the day today. She was referred to the ED by her PCP Dr. Downs for IV antibiotics. Her main complaint is that of pain in the right medial aspect of tibia where a previous ulceration was that had mostly healed. Primary Care Provider: Deion Downs MD Allergies Allergy/AdvReac Type Severity Reaction Status Date / Time fenofibrate Allergy Intermediate rash Verified 09/17/18 20:06 amoxicillin Allergy Unknown UNKNOWN Verified 09/15/18 09:17 calcium carbonate Allergy Unknown . Verified 09/15/18 09:17 Cipro Allergy Unknown . Verified 10/30/17 13:10 ciprofloxacin Allergy Unknown . Verified 09/15/18 09:17 diphenhydramine Allergy Unknown . Verified 09/15/18 09:17 fexofenadine Allergy Unknown UNKNOWN Verified 09/17/18 20:05 irbesartan Allergy Unknown UNKNOWN Verified 09/17/18 20:04 lidocaine Allergy Unknown . Verified 09/15/18 09:17 niacin Allergy Unknown RASH Verified 09/17/18 20:05 nystatin Allergy Unknown . Verified 09/15/18 09:17 Penicillins Allergy Unknown UNKNOWN Verified 09/15/18 09:17 Sulfa (Sulfonamide Allergy Unknown UNKNOWN Verified 09/15/18 09:17 Antibiotics) flumazenil AdvReac Intermediate DELIRIUM Verified 09/15/18 09:17 tomato AdvReac Unknown GI SYMPTOMS Verified 09/15/18 09:11 Home Medications Home Medications Medication Instructions Recorded Confirmed Type ascorbic acid (vitamin C) [Vitamin 500 mg PO QAM 04/24/18 09/17/18 History C] atorvastatin 10 mg PO QAM 04/24/18 09/17/18 History benzonatate 100 mg PO TID 04/24/18 09/17/18 History biotin 10,000 mcg PO QAM 04/24/18 09/17/18 History bumetanide 1 mg PO BID 04/24/18 09/17/18 History calcitriol 0.25 mg PO Q48H 04/24/18 09/17/18 History cholecalciferol (vitamin D3) 1,000 unit PO QAM 04/24/18 09/17/18 History [Vitamin D3] cranberry 1,000 mg PO BID 04/24/18 09/17/18 History digoxin 125 mcg PO 3XWK 04/24/18 09/17/18 History docusate sodium [Colace] 100 mg PO BID 04/24/18 09/17/18 History fluticasone propionate [Flonase 2 spray INTRANASAL DAILY 04/24/18 09/17/18 History Allergy Relief] lansoprazole 30 mg PO QAM 04/24/18 09/17/18 History levalbuterol HCl 0.63 mg INHALATION TID 04/24/18 09/17/18 History levothyroxine 75 mcg PO QAM 04/24/18 09/17/18 History loratadine 10 mg PO QAM 04/24/18 09/17/18 History metoprolol tartrate 100 mg PO BID 04/24/18 09/17/18 History ondansetron 4 mg PO Q6H PRN 04/24/18 09/17/18 History tolterodine 2 mg PO BID 04/24/18 09/17/18 History nitroglycerin 0.4 mg SUBLINGUAL DIRECTED PRN 05/23/18 09/17/18 History Basaglandres ThompsonPen U-100 Insulin 32 unit SUBCUT QAM 06/30/18 09/17/18 History escitalopram oxalate 5 mg PO DAILY 06/30/18 09/17/18 History guaifenesin [Mucinex] 600 mg PO Q12H PRN 06/30/18 09/17/18 History lactulose 15 ml PO DAILY PRN 06/30/18 09/17/18 History miconazole nitrate 1 applic TOPICAL DIRECTED PRN 06/30/18 09/17/18 History nitrofurantoin macrocrystal 50 mg PO HS 06/30/18 09/17/18 History aspirin 81 mg tablet,delayed 81 mg PO Q2D tab 07/18/18 09/17/18 History release cyanocobalamin (vitamin B-12) 1,000 mcg PO DAILY 09/02/18 09/17/18 History [Vitamin B-12] olmesartan 20 mg PO HS 09/02/18 09/17/18 History magnesium 400 mg (as magnesium 400 mg PO QAM 09/08/18 09/17/18 History oxide) capsule cefadroxil 500 mg PO BID 09/17/18 09/17/18 History Past Med/Surg History Medical History History of small bowel obstruction (Resolved) Wound of left ankle (Acute) Urinary retention (Acute) Restrictive airway disease (Acute) Mobility impaired (Acute) Insomnia (Acute) HFrEF (heart failure with reduced ejection fraction) (Acute) Esophageal dysmotility (Acute) Diverticulosis (Acute) Diabetic peripheral neuropathy (Acute) Debilitated patient (Acute) Constipation (Acute) Cellulitis and abscess of right leg (Acute) CKD (chronic kidney disease), stage IV (Acute) Arthritis (Acute) Adhesive capsulitis of both shoulders (Acute) Acute on chronic systolic heart failure (Acute) Acute edema (Acute) Valvular heart disease Shortness of breath at rest Multiple pulmonary nodules Hypothyroidism Glaucoma Chronic obstructive asthma CAD (coronary artery disease) COPD (chronic obstructive pulmonary disease) Depression Pacemaker (Chronic) DM (diabetes mellitus) (Chronic) pt cannot use generic insulin, has hypoglycemia Chest pain (Acute) SOB (shortness of breath) (Acute) Atrial fibrillation (Chronic) Hypertension (Chronic 05/10/14) GERD (gastroesophageal reflux disease) (Chronic) Renal failure (Chronic) Anxiety (Acute) CHF (congestive heart failure) (Chronic) Chronic kidney disease Hyponatremia Moderate to severe pulmonary hypertension Severe mitral regurgitation Surgical History S/P quintuple vessel bypass (Resolved) History of cardiac cath (Resolved) Social History Preferred Language: Nigerian Communication Ability: Effective Software Applications Specialist Required: No Beliefs That Will Affect Care: Catholic Catholic Beliefs: Amish Current Living Situation: Retirement Current Living Situation Comment: spring Other Information That Helps Us Care for You: No Feels Safe at Home: Yes Safety Concerns: Feels Safe At This Time Smoking Status: Never smoker Do You Dip or Chew Tobacco: No Hx Alcohol Use: No Hx Substance Use: No Review of Systems Review of Systems: The patient denies chest pain, palpitations, shortness of breath, dyspnea on exertion, cough, sore throat, fevers, chills, sweats, weight change, fatigue, nausea, vomiting, diarrhea , constipation, abdominal pain, pelvic pain, blood in urine or stool, dysuria, urinary frequency or urgency, lightheadedness, dizziness, headache, memory loss, loss of consciousness, abnormal bruising or bleeding, imbalance, focal or generalized weakness, numbness or tingling in arms, generalized arthralgias or myalgias, back or neck pain, or night sweats. The review of systems is otherwise negative other than for that already noted above, and at least 10 systems have been reviewed. Physical Exam Physical Exam: The patient is awake, alert and oriented 3, well developed and well nourished, normocephalic and atraumatic, lying in bed and in no acute distress. HEENT--PERRL, EOMI, mucous membranes and oropharynx normal. Neck--supple. No JVD. No bruits. Thyroid normal, trachea midline, no adenopathy. Heart--normal S1 and S2. No murmurs, rubs or gallops. Lungs--clear bilaterally, no respiratory distress, no accessory muscle use. Abdomen--normal bowel sounds and soft. Nontender. Nondistended, no hernias or masses, no organomegaly. Extremities--no cyanosis or clubbing. There is 1+ bilateral pretibial pitting edema. Dermatologic--bilateral tibial surfaces with erythema and warmth, right greater than left. Right with a few pinpoint surface abrasions and pre-ulcers. Neurologic--cranial nerves II through XII grossly intact. Rheumatologic--normal range of motion. Psychiatric--normal affect. Results & Data Vital Signs (Past 12 Hours) Vital Signs Temp Pulse Pulse Resp BP BP Pulse Ox 09/17/18 19:56 67 18 145/60 H 95 09/17/18 16:43 98.6 F 63 18 147/59 H 95 Laboratory Results Laboratory Results WBC 7.52 K/uL (4.8-10.8) 09/17/18 19:14 RBC 3.94 M/uL (4.2-5.4) L 09/17/18 19:14 Hgb 12.0 g/dL (12.0-16.0) 09/17/18 19:14 Hct 36.3 % (37-47) L 09/17/18 19:14 MCV 92.1 fL (80-100) 09/17/18 19:14 MCH 30.5 pg (25-34) 09/17/18 19:14 MCHC 33.1 g/dL (32-36) 09/17/18 19:14 RDW Std Deviation 49.3 fL (36.4-46.3) H 09/17/18 19:14 RDW Coeff of Anthony 14.7 % (11.5-14.5) H 09/17/18 19:14 Plt Count 165 K/uL (130-400) 09/17/18 19:14 MPV 8.9 fL (7.4-10.4) 09/17/18 19:14 Immature Gran % (Auto) 0.3 % 09/17/18 19:14 Neut % (Auto) 70.5 % 09/17/18 19:14 Lymph % (Auto) 15.3 % 09/17/18 19:14 [place] % (Auto) 8.8 % 09/17/18 19:14 Eos % (Auto) 4.8 % 09/17/18 19:14 Baso % (Auto) 0.3 % 09/17/18 19:14 Immature Gran # (Auto) 0.02 K/uL (0.00-0.02) 09/17/18 19:14 Neut # (Auto) 5.31 K/uL (1.4-6.5) 09/17/18 19:14 Lymph # (Auto) 1.15 K/uL (1.2-3.4) L 09/17/18 19:14 [place] # (Auto) 0.66 K/uL (0.11-0.59) H 09/17/18 19:14 Eos # (Auto) 0.36 K/uL (0-0.5) 09/17/18 19:14 Baso # (Auto) 0.02 K/uL (0-0.2) 09/17/18 19:14 PT 10.6 Seconds (9.0-12.0) 09/17/18 19:14 INR 1.0 (0.9-1.1) 09/17/18 19:14 APTT 22.3 Seconds (21.0-31.0) 09/17/18 19:14 PTT Ratio 0.8 09/17/18 19:14 Sodium 133 mmol/L (136-145) L 09/17/18 19:14 Potassium 4.3 mmol/L (3.5-5.1) 09/17/18 19:14 Chloride 98 mmol/L (98-107) 09/17/18 19:14 Carbon Dioxide 27 mmol/L (21-32) 09/17/18 19:14 Anion Gap 8.0 (3-11) 09/17/18 19:14 BUN 56 mg/dl (7-18) H 09/17/18 19:14 Creatinine 2.16 mg/dl (0.6-1.2) H 09/17/18 19:14 Est Cr Clr Drug Dosing 16.0 ml/min 09/17/18 19:14 Est GFR ( Amer) 22.8 09/17/18 19:14 Est GFR (Non-Af Amer) 19.7 09/17/18 19:14 BUN/Creatinine Ratio 25.8 (10-20) H 09/17/18 19:14 Glucose 115 mg/dl (70-99) H 09/17/18 19:14 POC Glucose 75 (70-99) 09/17/18 22:29 Lactate 0.9 mmol/L (0.4-2.0) 09/17/18 19:14 Calcium 9.0 mg/dl (8.5-10.1) 09/17/18 19:14 Magnesium 2.2 mg/dl (1.8-2.4) 09/17/18 19:14 Total Bilirubin 0.6 mg/dl (0.2-1) 09/17/18 19:14 AST 20 U/L (15-37) 09/17/18 19:14 ALT 22 U/L (12-78) 09/17/18 19:14 Alkaline Phosphatase 79 U/L (45-117) 09/17/18 19:14 Total Protein 6.5 gm/dl (6.4-8.2) 09/17/18 19:14 Albumin 3.3 gm/dl (3.4-5.0) L 09/17/18 19:14 Globulin 3.2 gm/dl (2.5-4.0) 09/17/18 19:14 Albumin/Globulin Ratio 1.0 (0.9-2) 09/17/18 19:14 Digoxin 1.5 ng/ml (0.8-2.0) 09/17/18 19:14 Code Status & VTE Plan Code Status Full code VTE Prophylaxis Plan VTE Prophylaxis will be ordered: Yes PG Care Time/CCT Total # of Minutes Spent Total Time Spent with Patient: Total time spent is greater than 50% in coordination of care (as documented) at patient's floor/unit and/or counseling patient:
[2018-09-17] MEDS ORDERED: ONDANSETRON 4 MG OD TAB PO PRN (22:26)
[2018-09-17] MEDS ORDERED: ONDANSETRON INJ 2 MG/ML 2 ML VIAL IV PRN (22:26)
[2018-09-17] MEDS ORDERED: ALUMINUM/MAGNESIUM SUSP 30 ML UDC PO PRN (22:26)
[2018-09-17] MEDS ORDERED: MICONAZOLE NITRATE POWDER 43 GM TOP PRN (22:26)
[2018-09-17] MEDS ORDERED: MAGNESIUM HYDROXIDE SUSP 30 ML UDC PO PRN (22:26)
[2018-09-17] MEDS ORDERED: DAPTOmycin 500 MG VIAL IV SCH (22:26)
[2018-09-17] MEDS ORDERED: NITROGLYCERIN SL 0.4 MG/TAB TAB SL PRN (22:26)
[2018-09-17] MEDS ORDERED: LACTULOSE SYRUP 10 GM/15 ML BTL 473 ML PO PRN (22:54)
[2018-09-18] MEDS: DAPTOmycin 250 MG in SYRINGE 0 ML IV SCH (00:25)
[2018-09-18] MEDS: BUMETANIDE 1 MG TAB PO SCH ×3 (00:26→16:58)
[2018-09-18] MEDS ORDERED: LEVALBUTEROL HCL 0.63 MG/3 ML NEB INH PRN (04:45)
[2018-09-18] MEDS ORDERED: LEVALBUTEROL HCL 0.63 MG/3 ML NEB NEB PRN (05:59)
[2018-09-18] MEDS: LEVOTHYROXINE SODIUM 75 MCG TABLET PO SCH (06:37)
[2018-09-18] MEDS: LEVALBUTEROL HCL 0.63 MG/3 ML NEB INH SCH ×3 (07:08→18:59)
[2018-09-18] MEDS: LORATADINE 10 MG TAB PO SCH (07:41)
[2018-09-18] MEDS: CALCITRIOL 0.25 MCG CAPSULE PO SCH (07:41)
[2018-09-18] MEDS: FLUTICASONE PROPIONATE NA SPR 16 GM BTL NAE SCH (07:42)
[2018-09-18] MEDS: DOCUSATE SODIUM 100 MG CAP PO SCH ×2 (07:42→21:28)
[2018-09-18] MEDS: TOLTERODINE TARTRATE 2 MG TAB PO SCH ×2 (07:42→21:27)
[2018-09-18] MEDS: ASPIRIN 81 MG ECTAB PO SCH (07:42)
[2018-09-18] MEDS: ESCITALOPRAM OXALATE 10 MG TAB PO SCH (07:43)
[2018-09-18] MEDS: METOPROLOL TARTRATE 100 MG TAB PO SCH ×2 (07:44→21:27)
[2018-09-18] MEDS: MAGNESIUM OXIDE 400 MG TAB PO SCH (07:44)
[2018-09-18] MEDS: PANTOprazole 40 MG TAB PO SCH (07:44)
[2018-09-18] MEDS: CYANOCOBALAMIN 500 MCG TABLET (VITAMIN B-12) PO SCH (07:45)
[2018-09-18] MEDS: BENZONATATE 100 MG CAPSULE PO SCH ×3 (07:45→21:27)
[2018-09-18] MEDS: ASCORBIC ACID 500 MG TAB PO SCH (07:45)
[2018-09-18] MEDS: CHOLECALCIFEROL 1,000 UNITS TAB PO SCH (07:45)
--- NOTE | 2018-09-18 07:45 | Hospitalist Progress Note ---
Date of Service September 18, 2018 Assessment & Plan (1) Cellulitis of both lower extremities: Cellulitis of bilateral lower extremities/early ulceration medial aspect right lower extremity-this are very small conintues on Vancomycin IV and ceftriaxone IV Consult wound care. Consult infectious disease Dr. Tilley, he has been following pt at wound care. (2) CKD (chronic kidney disease), stage IV: Creatinine 2.16 upon admission, with range 1.95-2.45. (3) CAD (coronary artery disease): CAD/hypertension/CHF- Continue metoprolol tartrate, on losartan, aspirin, bumetanide and digoxin. (4) Hypothyroidism: Continue levothyroxine sodium 75 mcg every morning. (5) Hyperlipidemia: Continue atorvastatin 10 mg every morning. (6) CHF (congestive heart failure): chronic systolic heart failure managed by po bumex, HFrEF, pt also with severe pulmonary HTN (7) GERD (gastroesophageal reflux disease): Lansoprazole to pantoprazole (8) Hypertension: See above (9) Anxiety: Continue Lexapro (10) Atrial fibrillation: See above (11) COPD (chronic obstructive pulmonary disease): Continue usual inhalers (12) Bladder spasms: Continue tolterodine (13) Diabetes mellitus: Continue home Basaglar, but decreased from 32 to 20 units subcu every morning. Placed on Accu-Cheks before meals and at bedtime with NovoLog coverage per scale. Subjective this pt is with much less redness to lower legs, she notes to be coughing up dark jaquez mucus, but has no abnormal lung exam, her antibiotics are broad spectrum. Review of Systems Review of Systems: ROS: well nourished well developed. No double vision blurry vision No problems with speech or swallowing No palpitations, chest pain or pressure coughing with some sputum production, no shortness of breath No abdominal pain nausea vomiting diarrhea using oral supplements No burning urine urine frequency or changes in color No focal joint pain or muscle pain No skin rashes or oral lesions No unusual bruising or bleeding No focused back pain or numbness or loss of strength No changes in memory or confusion Physical Exam Physical Exam: The patient appeared well nourished and normally developed. Vital signs as documented. Head exam is unremarkable. normocephalic, atraumatic Neck is without jugular venous distension, thyromegaly, or lymphademopathy Lungs are clear to auscultation no wheezes. Cardiac exam reveals Rhythm is regular. Abdominal exam reveals normal bowel sounds, no masses, no organomegaly Extremities are nonedematous and both pedal pulses are present Neurologic exam is A&Ox3, no focal deficits, strength is equal bilateral Psychologically seems neither anxious or depressed Skin is with receeding erythmea from lines drawn for demarcation Results & Data Vital Signs (Past 12 Hours) Vital Signs Temp Pulse Pulse Resp BP Pulse Ox 09/18/18 07:14 36.7 C 68 16 147/69 H 92 09/18/18 07:11 68 20 92 09/18/18 04:38 67 24 95 09/17/18 22:27 36.4 C L 65 18 130/77 96 09/17/18 19:56 67 18 145/60 H 95 PG Care Time/CCT Total # of Minutes Spent Total Time Spent with Patient: Total time spent is greater than 50% in coordination of care (as documented) at patient's floor/unit and/or counseling patient:
[2018-09-18] MEDS: BASAGLAR INSULIN SQ SCH (08:00)
[2018-09-18] MEDS ORDERED: ATORVASTATIN 10 MG TAB PO SCH (09:00)
[2018-09-18] MEDS ORDERED: NON-FORMULARY MEDICATION (Biotin 10,000 MCG) PO SCH (09:00)
[2018-09-18] MEDS ORDERED: LEVALBUTEROL HCL 0.63 MG/3 ML NEB INH SCH (09:00)
--- NOTE | 2018-09-18 09:12 | Infectious Disease Consult ---
Date of Consultation September 18, 2018 Assessment & Plan (1) Cellulitis of both lower extremities: 88-year-old female with bilateral lower extremity cellulitis in the setting of chronic venous stasis disease, with what appears to be early clinical response to IV antibiotics. Would continue patient on vancomycin and ceftriaxone pending further culture results. Length of IV antibiotics will be determined by clinical response. Will follow. History of Present Illness Reason for Consultation: Bilateral lower extremity cellulitis Attending Physician: Chris Mancia MD History of Present Illness 88-year-old female with history of diabetes mellitus, heart failure, peripheral neuropathy, stage IV chronic kidney disease, hypothyroidism, coronary artery disease, who was admitted with bilateral lower extremity cellulitis. Patient has a long history of chronic venous stasis disease with lower extremity and has been recently treated for lower extremity cellulitis. She was seen yesterday at the wound care center, and was noted to have increasing erythema of both lower extremities, was prescribed cefadroxil, but saw a primary care physician and was subsequently admitted to the hospital for further management. She has been started on vancomycin and ceftriaxone and is noted improvement since yesterday with decrease in the pain and swelling of her legs. She denies any fever but has been having chills. Blood cultures are pending. Allergies Allergy/AdvReac Type Severity Reaction Status Date / Time fenofibrate Allergy Intermediate rash Verified 09/17/18 20:06 amoxicillin Allergy Unknown UNKNOWN Verified 09/15/18 09:17 calcium carbonate Allergy Unknown . Verified 09/15/18 09:17 Cipro Allergy Unknown . Verified 10/30/17 13:10 ciprofloxacin Allergy Unknown . Verified 09/15/18 09:17 diphenhydramine Allergy Unknown . Verified 09/15/18 09:17 fexofenadine Allergy Unknown UNKNOWN Verified 09/17/18 20:05 irbesartan Allergy Unknown UNKNOWN Verified 09/17/18 20:04 lidocaine Allergy Unknown . Verified 09/15/18 09:17 niacin Allergy Unknown RASH Verified 09/17/18 20:05 nystatin Allergy Unknown . Verified 09/15/18 09:17 Penicillins Allergy Unknown UNKNOWN Verified 09/15/18 09:17 Sulfa (Sulfonamide Allergy Unknown UNKNOWN Verified 09/15/18 09:17 Antibiotics) flumazenil AdvReac Intermediate DELIRIUM Verified 09/15/18 09:17 tomato AdvReac Unknown GI SYMPTOMS Verified 09/15/18 09:11 Home Medications Home Medications Medication Instructions Recorded Confirmed Type ascorbic acid (vitamin C) [Vitamin 500 mg PO QAM 04/24/18 09/17/18 History C] atorvastatin 10 mg PO QAM 04/24/18 09/17/18 History benzonatate 100 mg PO TID 04/24/18 09/17/18 History biotin 10,000 mcg PO QAM 04/24/18 09/17/18 History bumetanide 1 mg PO BID 04/24/18 09/17/18 History calcitriol 0.25 mg PO Q48H 04/24/18 09/17/18 History cholecalciferol (vitamin D3) 1,000 unit PO QAM 04/24/18 09/17/18 History [Vitamin D3] cranberry 1,000 mg PO BID 04/24/18 09/17/18 History digoxin 125 mcg PO 3XWK 04/24/18 09/17/18 History docusate sodium [Colace] 100 mg PO BID 04/24/18 09/17/18 History fluticasone propionate [Flonase 2 spray INTRANASAL DAILY 04/24/18 09/17/18 History Allergy Relief] lansoprazole 30 mg PO QAM 04/24/18 09/17/18 History levalbuterol HCl 0.63 mg INHALATION TID 04/24/18 09/17/18 History levothyroxine 75 mcg PO QAM 04/24/18 09/17/18 History loratadine 10 mg PO QAM 04/24/18 09/17/18 History metoprolol tartrate 100 mg PO BID 04/24/18 09/17/18 History ondansetron 4 mg PO Q6H PRN 04/24/18 09/17/18 History tolterodine 2 mg PO BID 04/24/18 09/17/18 History nitroglycerin 0.4 mg SUBLINGUAL DIRECTED PRN 05/23/18 09/17/18 History Basaglar KwikPen U-100 Insulin 32 unit SUBCUT QAM 06/30/18 09/17/18 History escitalopram oxalate 5 mg PO DAILY 06/30/18 09/17/18 History guaifenesin [Mucinex] 600 mg PO Q12H PRN 06/30/18 09/17/18 History lactulose 15 ml PO DAILY PRN 06/30/18 09/17/18 History miconazole nitrate 1 applic TOPICAL DIRECTED PRN 06/30/18 09/17/18 History nitrofurantoin macrocrystal 50 mg PO HS 06/30/18 09/17/18 History aspirin 81 mg tablet,delayed 81 mg PO Q2D tab 07/18/18 09/17/18 History release cyanocobalamin (vitamin B-12) 1,000 mcg PO DAILY 09/02/18 09/17/18 History [Vitamin B-12] olmesartan 20 mg PO HS 09/02/18 09/17/18 History magnesium 400 mg (as magnesium 400 mg PO QAM 09/08/18 09/17/18 History oxide) capsule cefadroxil 500 mg PO BID 09/17/18 09/17/18 History Patient History Medical History History of small bowel obstruction (Resolved) Wound of left ankle (Acute) Urinary retention (Acute) Restrictive airway disease (Acute) Mobility impaired (Acute) Insomnia (Acute) HFrEF (heart failure with reduced ejection fraction) (Acute) Esophageal dysmotility (Acute) Diverticulosis (Acute) Diabetic peripheral neuropathy (Acute) Debilitated patient (Acute) Constipation (Acute) Cellulitis and abscess of right leg (Acute) CKD (chronic kidney disease), stage IV (Acute) Arthritis (Acute) Adhesive capsulitis of both shoulders (Acute) Acute on chronic systolic heart failure (Acute) Acute edema (Acute) Valvular heart disease Shortness of breath at rest Multiple pulmonary nodules Hypothyroidism Glaucoma Chronic obstructive asthma CAD (coronary artery disease) COPD (chronic obstructive pulmonary disease) Depression Pacemaker (Chronic) DM (diabetes mellitus) (Chronic) pt cannot use generic insulin, has hypoglycemia Chest pain (Acute) SOB (shortness of breath) (Acute) Atrial fibrillation (Chronic) Hypertension (Chronic 05/10/14) GERD (gastroesophageal reflux disease) (Chronic) Renal failure (Chronic) Anxiety (Acute) CHF (congestive heart failure) (Chronic) Chronic kidney disease Hyponatremia Moderate to severe pulmonary hypertension Severe mitral regurgitation Surgical History S/P quintuple vessel bypass (Resolved) History of cardiac cath (Resolved) Social History Preferred Language: Tajik Communication Ability: Effective Active Directory Specialist Required: No Beliefs That Will Affect Care: Druze Druze Beliefs: Orthodoxy Current Living Situation: Jail Current Living Situation Comment: [place] Other Information That Helps Us Care for You: No Feels Safe at Home: Yes Safety Concerns: Feels Safe At This Time Smoking Status: Never smoker Do You Dip or Chew Tobacco: No Hx Alcohol Use: No Hx Substance Use: No Review of Systems Review of Systems: All systems reviewed & are unremarkable except as noted in HPI & below Physical Exam Constitutional: WD/WN, vitals as above no acute distress Eyes: PERRL, conjunctivae normal, anicteric sclerae ENMT: external ear and nose normal, oropharynx normal Neck: trachea midline, no thyromegaly Respiratory: normal respiratory effort, lungs clear to auscultation normal percussion; no respiratory distress Cardiovascular: RRR, no murmur, no edema Heart Sounds: no gallop and no cardiac rub Extremities: + edema (2+ both lower extremities) Gastrointestinal (Abdomen): normal bowel sounds, soft, nontender, no he patosplenomegaly Percussion/Palpation: no abdominal mass Musculoskeletal: no cyanosis or clubbing, extremities motor strength 5/5 Head/Neck/Chest: normocephalic, head atraumatic and neck supple Skin: normal turgor; no rashes Erythema both lower extremities below the knee, decreased from yesterday, small skin ulcerations present Neurologic: patellar DTR's 2+ bilat, sensation intact moves all extremities; no focal motor deficits Psychiatric: A+Ox3, euthymic affect Lymphatic: no cervical or axillary lymphadenopathy no inguinal lymphadenopathy Results & Data Vital Signs (Past 12 Hours) Vital Signs Temp Pulse Resp BP Pulse Ox 09/18/18 07:14 36.7 C 68 16 147/69 H 92 09/18/18 07:11 68 20 92 09/18/18 04:38 67 24 95 09/17/18 22:27 36.4 C L 65 18 130/77 96 Laboratory Results Short CBC 09/17/18 Range/Units 19:14 WBC 7.52 (4.8-10.8) K/uL Hgb 12.0 (12.0-16.0) g/dL Hct 36.3 L (37-47) % Plt Count 165 (130-400) K/uL BMP 09/17/18 19:14 Sodium 133 L Potassium 4.3 Chloride 98 Carbon Dioxide 27 BUN 56 H Creatinine 2.16 H Glucose 115 H Calcium 9.0 Liver Function 09/17/18 Range/Units 19:14 Total Bilirubin 0.6 (0.2-1) mg/dl AST 20 (15-37) U/L ALT 22 (12-78) U/L Alkaline Phosphatase 79 (45-117) U/L Albumin 3.3 L (3.4-5.0) gm/dl
[2018-09-18] MEDS: ACETAMINOPHEN 325 MG TAB PO PRN ×2 (10:16→21:23)
[2018-09-18] MEDS: guaiFENesin 600 MG TABCR PO PRN (11:53)
[2018-09-18] MEDS: cefTRIAXone SODIUM 1,000 MG in DEXTROSE 5% 50 ML IV SCH (20:08)
[2018-09-18] MEDS: OLMESARTAN MEDOXOMIL 20 MG TAB PO SCH (21:27)
[2018-09-19] MEDS: LEVOTHYROXINE SODIUM 75 MCG TABLET PO SCH (06:02)
[2018-09-19 06:33] LABS: Creatinine Clr Calc Pharmacy 16.5 ml/min; Est GFR (African American) 23.7; Est GFR (Non-African American) 20.5
[2018-09-19] MEDS: LEVALBUTEROL HCL 0.63 MG/3 ML NEB INH SCH ×3 (06:59→19:19)
[2018-09-19] MEDS: BUMETANIDE 1 MG TAB PO SCH ×2 (09:33→17:38)
[2018-09-19] MEDS: LORATADINE 10 MG TAB PO SCH (09:34)
[2018-09-19] MEDS: DOCUSATE SODIUM 100 MG CAP PO SCH (09:34)
[2018-09-19] MEDS: TOLTERODINE TARTRATE 2 MG TAB PO SCH ×2 (09:34→20:41)
[2018-09-19] MEDS: DIGOXIN 0.125 MG TAB PO SCH (09:35)
[2018-09-19] MEDS: FLUTICASONE PROPIONATE NA SPR 16 GM BTL NAE SCH (09:35)
[2018-09-19] MEDS: ESCITALOPRAM OXALATE 10 MG TAB PO SCH (09:35)
[2018-09-19] MEDS: MAGNESIUM OXIDE 400 MG TAB PO SCH (09:37)
[2018-09-19] MEDS: METOPROLOL TARTRATE 100 MG TAB PO SCH ×2 (09:37→20:48)
[2018-09-19] MEDS: BENZONATATE 100 MG CAPSULE PO SCH ×2 (09:38→13:54)
[2018-09-19] MEDS: PANTOprazole 40 MG TAB PO SCH (09:38)
[2018-09-19] MEDS: CYANOCOBALAMIN 500 MCG TABLET (VITAMIN B-12) PO SCH (09:38)
[2018-09-19] MEDS: CHOLECALCIFEROL 1,000 UNITS TAB PO SCH (09:39)
[2018-09-19] MEDS: ASCORBIC ACID 500 MG TAB PO SCH (09:39)
[2018-09-19] MEDS: BASAGLAR INSULIN SQ SCH (09:42)
[2018-09-19] MEDS: cefTRIAXone SODIUM 1,000 MG in DEXTROSE 5% 50 ML IV SCH (09:45)
--- NOTE | 2018-09-19 17:42 | Hospitalist Progress Note ---
Date of Service September 19, 2018 Assessment & Plan (1) Cellulitis of both lower extremities: Cellulitis of bilateral lower extremities/early ulceration medial aspect right lower extremity-this are very small conintues on daptomycin IV and ceftriaxone IV Consult wound care. Consult infectious disease Dr. Tilley, he has been following pt at wound care. (2) CKD (chronic kidney disease), stage IV: has been stable (3) CAD (coronary artery disease): CAD/hypertension/CHF-clinically stable Continue metoprolol tartrate, on losartan, aspirin, bumetanide and digoxin. (4) Hypothyroidism: clinically euthyroid on levothyroxine sodium 75 mcg every morning. (5) Hyperlipidemia: Continue atorvastatin 10 mg every morning. (6) CHF (congestive heart failure): stable chronic systolic heart failure managed by po bumex, HFrEF, pt also with severe pulmonary HTN (7) GERD (gastroesophageal reflux disease): Lansoprazole to pantoprazole, gi symptoms not consistent with Gerd or PUDz, diarrhea complaints maybe related to stool softner and magnesium po, C Diff negative (8) Hypertension: See above (9) Anxiety: Continue Lexapro (10) Atrial fibrillation: See above (11) COPD (chronic obstructive pulmonary disease): Continue usual inhalers (12) Bladder spasms: Continue tolterodine (13) Diabetes mellitus: Continue home Basaglar, but decreased from 32 to 20 units subcu every morning. Placed on Accu-Cheks before meals and at bedtime with NovoLog coverage per scale. Subjective Patient continues to have various different somatic complaints today mostly with some nausea and abdominal discomfort. She still having a productive cough although her lungs do sound clear and initial chest x-ray was without remark for pneumonia. Her lower extremity sialitis is improving. She is having some frequent bowel movements with her C. difficile is negative. Review of Systems Review of Systems: ROS: Patient feels mildly nauseated today No double vision blurry vision No problems with speech or swallowing No palpitations, chest pain or pressure No Wheezing or breathing issues No abdominal pain but having some diarrhea No burning urine urine frequency or changes in color No focal joint pain or muscle pain No skin rashes have receded no returning to normal No unusual bruising or bleeding No focused back pain or numbness or loss of strength No changes in memory or confusion Physical Exam Physical Exam: The patient appeared in mild distress Vital signs as documented. Head exam is unremarkable. normocephalic, atraumatic Neck is without jugular venous distension, thyromegaly, or lymphademopathy Lungs are clear to auscultation without wheezes rhonchi or focal air loss. Cardiac exam reveals Rhythm is regular. Abdominal exam reveals normal bowel sounds, no masses, no organomegaly no tenderness in the right upper quadrant no guarding no rebound Extremities are nonedematous and lower extremity erythema is all but gone Neurologic exam is A&Ox3, no focal deficits, strength is equal bilateral Psychologically seems neither anxious or depressed Skin is warm Dry lower extremities are almost returned to normal Results & Data Vital Signs (Past 12 Hours) Vital Signs Temp Pulse Pulse Pulse Resp BP Pulse Ox 09/19/18 15:56 36.9 C 64 18 151/69 H 94 09/19/18 15:15 61 16 94 09/19/18 09:35 65 09/19/18 07:22 36.2 C L 65 16 136/60 99 09/19/18 06:59 65 16 97 PG Care Time/CCT Total # of Minutes Spent Total Time Spent with Patient: Total time spent is greater than 50% in coordination of care (as documented) at patient's floor/unit and/or counseling patient:
[2018-09-19] MEDS ORDERED: GLUCOSE 40% GEL 15 GM TUBE PO PRN (17:46)
[2018-09-19] MEDS ORDERED: GLUCAGON FOR INJ 1 MG VIAL SQ PRN (17:46)
[2018-09-19] MEDS ORDERED: GLUCOSE 10 TABS/TUBE PO PRN (17:46)
[2018-09-19] MEDS ORDERED: CARBOHYDRATES FOR HYPOGLYCEMIA PO PRN (17:46)
[2018-09-19] MEDS ORDERED: DEXTROSE 50% 50 ML SYRINGE IV PRN (17:46)
--- NOTE | 2018-09-19 20:18 | Infectious Disease Progress Nt ---
Date of Service September 19, 2018 Assessment & Plan (1) Cellulitis of both lower extremities: 88-year-old female with bilateral lower extremity cellulitis in the setting of chronic venous stasis disease, with what appears to be early clinical response to IV antibiotics. Would continue patient on vancomycin and ceftriaxone pending further culture results. Length of IV antibiotics will be determined by clinical response. Will follow. Subjective Patient seen in follow-up for bilateral lower extremity cellulitis. Having some issues with shortness of breath, nebulizer with some improvement. Remains afebrile. Lower extremity erythema improving. Tolerating antibiotics without apparent difficulty. Review of Systems Review of Systems: All systems reviewed & are unremarkable except as noted in HPI & below Physical Exam Constitutional: WD/WN, vitals as above no acute distress Eyes: PERRL, conjunctivae normal, anicteric sclerae ENMT: external ear and nose normal, oropharynx normal Neck: trachea midline, no thyromegaly Respiratory: normal respiratory effort, lungs clear to auscultation normal percussion; no respiratory distress Cardiovascular: RRR, no murmur, no edema Heart Sounds: no gallop and no cardiac rub Extremities: + edema (2+ both lower extremities) Gastrointestinal (Abdomen): normal bowel sounds, soft, nontender, no hepatosplenomegaly Percussion/Palpation: no abdominal mass Musculoskeletal: no cyanosis or clubbing, extremities motor strength 5/5 Head/Neck/Chest: normocephalic, head atraumatic and neck supple Skin: normal turgor; no rashes Neurologic: patellar DTR's 2+ bilat, sensation intact moves all extremities; no focal motor deficits Psychiatric: A+Ox3, euthymic affect Lymphatic: no cervical or axillary lymphadenopathy no inguinal lymphadenopathy Results & Data Vital Signs (Past 12 Hours) Vital Signs Temp Pulse Pulse Pulse Resp BP Pulse Ox 09/19/18 19:21 71 20 94 09/19/18 15:56 36.9 C 64 18 151/69 H 94 09/19/18 15:15 61 16 94 09/19/18 09:35 65 Laboratory Results [facility] 09/19/18 05:25 Creatinine 2.09 H Diagnostic Findings Microbiology 09/17/18 19:21 Blood Aerobic Blood Culture - Preliminary No growth in Aerobic bottle after 24 hours. 09/17/18 19:21 Blood Anaerobic Blood Culture - Preliminary No growth in Anaerobic bottle after 24 hours. 09/17/18 19:14 Blood Aerobic Blood Culture - Preliminary No growth in Aerobic bottle after 24 hours. 09/17/18 19:14 Blood Anaerobic Blood Culture - Preliminary No growth in Anaerobic bottle after 24 hours.
[2018-09-19] MEDS: OLMESARTAN MEDOXOMIL 20 MG TAB PO SCH (20:40)
[2018-09-19] MEDS: INSULIN ASPART 100 UNITS/ML 3 ML PEN SC SCH (20:51)
[2018-09-19] MEDS: ACETAMINOPHEN 325 MG TAB PO PRN (22:15)
[2018-09-19] MEDS: DAPTOmycin 250 MG in SYRINGE 0 ML IV SCH (22:21)
[2018-09-20] MEDS: ACETAMINOPHEN 325 MG TAB PO PRN (03:43)
[2018-09-20] MEDS: LEVOTHYROXINE SODIUM 75 MCG TABLET PO SCH (05:51)
[2018-09-20 06:44] LABS: Creatinine Clr Calc Pharmacy 16.1 ml/min; Est GFR (African American) 22.9; Est GFR (Non-African American) 19.8
[2018-09-20] MEDS: LEVALBUTEROL HCL 0.63 MG/3 ML NEB INH SCH ×3 (07:09→19:14)
[2018-09-20] MEDS: INSULIN ASPART 100 UNITS/ML 3 ML PEN SC SCH ×4 (08:59→21:01)
[2018-09-20] MEDS: BASAGLAR INSULIN SQ SCH (09:01)
[2018-09-20] MEDS: BUMETANIDE 1 MG TAB PO SCH ×2 (09:05→18:20)
[2018-09-20] MEDS: ASPIRIN 81 MG ECTAB PO SCH (09:06)
[2018-09-20] MEDS: TOLTERODINE TARTRATE 2 MG TAB PO SCH ×2 (09:06→22:00)
[2018-09-20] MEDS: FLUTICASONE PROPIONATE NA SPR 16 GM BTL NAE SCH (09:07)
[2018-09-20] MEDS: ESCITALOPRAM OXALATE 10 MG TAB PO SCH (09:09)
[2018-09-20] MEDS: PANTOprazole 40 MG TAB PO SCH (09:10)
[2018-09-20] MEDS: METOPROLOL TARTRATE 100 MG TAB PO SCH ×2 (09:10→21:59)
[2018-09-20] MEDS: CALCITRIOL 0.25 MCG CAPSULE PO SCH (09:10)
[2018-09-20] MEDS: cefTRIAXone SODIUM 1,000 MG in DEXTROSE 5% 50 ML IV SCH (09:13)
--- NOTE | 2018-09-20 12:53 | Hospitalist Progress Note ---
Date of Service September 20, 2018 Assessment & Plan (1) Cellulitis of both lower extremities: Cellulitis of bilateral lower extremities/early ulceration medial aspect right lower extremity-this are very small continues on daptomycin IV and ceftriaxone IV likely can de-escalate as she is got great improvement however she does have a bronchitis type event we will he pick an antibiotic covers that also. Consult wound care. Consult infectious disease Dr. Tilley, he has been following pt at wound care. (2) CKD (chronic kidney disease), stage IV: has been stable creatinine remains greater than 2 but is been stable (3) CAD (coronary artery disease): CAD/hypertension/CHF-clinically stable Continue metoprolol tartrate, on losartan, aspirin, bumetanide and digoxin. (4) Hypothyroidism: clinically euthyroid on levothyroxine sodium 75 mcg every morning. (5) Hyperlipidemia: Continue atorvastatin 10 mg every morning. (6) CHF (congestive heart failure): stable chronic systolic heart failure managed by po bumex, HFrEF, pt also with severe pulmonary HTN (7) GERD (gastroesophageal reflux disease): Lansoprazole to pantoprazole, gi symptoms not consistent with Gerd or PUDz, diarrhea complaints maybe related to stool softner and magnesium po, C Diff negative (8) Hypertension: See above (9) Anxiety: Continue Lexapro (10) Atrial fibrillation: See above (11) COPD (chronic obstructive pulmonary disease): Continue usual inhalers (12) Bladder spasms: Continue tolterodine (13) Diabetes mellitus: Continue home Basaglar, but decreased from 32 to 20 units subcu every morning. Placed on Accu-Cheks before meals and at bedtime with NovoLog coverage per scale. Subjective Patient is in about her usual state she is not as bright as yesterday her abdominal discomfort has resolved her lower extremity cellulitis is better she still coughing with some mucus production no fevers or shortness of breath otherwise Review of Systems Review of Systems: ROS: well nourished well developed. No double vision blurry vision No problems with speech or swallowing No palpitations, chest pain or pressure No Wheezing patient having dyspnea but still having a cough with occasional mucus No abdominal pain nausea from 628 has resolved No burning urine does have a catheter in place No focal joint pain or muscle pain Skin the skin rash is improving No unusual bruising or bleeding No focused back pain or numbness or loss of strength No changes in memory or confusion Physical Exam Physical Exam: The patient appeared chronically ill and slightly fatigued Vital signs as documented. Head exam is unremarkable. normocephalic, atraumatic Neck is without jugular venous distension, thyromegaly, or lymphademopathy Lungs are clear to auscultation and percussion. Cardiac exam reveals Rhythm is regular. Abdominal exam reveals normal bowel sounds, no masses, no organomegaly Extremities are nonedematous and both lower extremity areas of erythema has receded normal*normal color at this point time Neurologic exam is A&Ox3, no focal deficits, strength is equal bilateral Psychologically seems depressed there is some concern about her eventual disposition Skin is warm Dry Results & Data Vital Signs (Past 12 Hours) Vital Signs Temp Pulse Resp BP Pulse Ox 09/20/18 07:16 36.4 C L 61 20 138/56 L 95 09/20/18 07:09 63 15 95 PG Care Time/CCT Total # of Minutes Spent Total Time Spent with Patient: Total time spent is greater than 50% in coordination of care (as documented) at patient's floor/unit and/or counseling patient:
--- NOTE | 2018-09-20 16:58 | Infectious Disease Progress Nt ---
Date of Service September 20, 2018 Assessment & Plan (1) Cellulitis of both lower extremities: 88-year-old female with bilateral lower extremity cellulitis in the setting of chronic venous stasis disease, with what appears to be clinical response to IV antibiotics. Would continue patient on vancomycin and ceftriaxone through today, then will consider transition to oral antibiotics tomorrow if continues to improve. Will follow. Subjective Patient seen in follow-up for bilateral lower extremity cellulitis. Patient feeling better today, pain in legs slowly decreasing. Remains afebrile. Tolerating antibiotics without apparent difficulty. Review of Systems Review of Systems: All systems reviewed & are unremarkable except as noted in HPI & below Physical Exam Constitutional: WD/WN, vitals as above no acute distress Eyes: PERRL, conjunctivae normal, anicteric sclerae ENMT: external ear and nose normal, oropharynx normal Neck: trachea midline, no thyromegaly Respiratory: normal respiratory effort, lungs clear to auscultation normal percussion; no respiratory distress Cardiovascular: RRR, no murmur, no edema Heart Sounds: no gallop and no cardiac rub Extremities: + edema (2+ both lower extremities) Gastrointestinal (Abdomen): normal bowel sounds, soft, nontender, no hepatosplenomegaly Percussion/Palpation: no abdominal mass Musculoskeletal: no cyanosis or clubbing, extremities motor strength 5/5 Head/Neck/Chest: normocephalic, head atraumatic and neck supple Skin: normal turgor; no rashes Neurologic: patellar DTR's 2+ bilat, sensation intact moves all extremities; no focal motor deficits Psychiatric: A+Ox3, euthymic affect Lymphatic: no cervical or axillary lymphadenopathy no inguinal lymphadenopathy Results & Data Vital Signs (Past 12 Hours) Vital Signs Temp Pulse Resp BP Pulse Ox 09/20/18 15:07 36.8 C 62 18 144/70 H 100 09/20/18 14:43 65 16 93 09/20/18 07:16 36.4 C L 61 20 138/56 L 95 09/20/18 07:09 63 15 95 Laboratory Results [facility] 09/20/18 05:39 Creatinine 2.15 H Diagnostic Findings Microbiology 09/17/18 19:21 Blood Aerobic Blood Culture - Preliminary No growth in Aerobic bottle after 48 hours. 09/17/18 19:21 Blood Anaerobic Blood Culture - Preliminary No growth in Anaerobic bottle after 48 hours. 09/17/18 19:14 Blood Aerobic Blood Culture - Preliminary No growth in Aerobic bottle after 48 hours. 09/17/18 19:14 Blood Anaerobic Blood Culture - Preliminary No growth in Anaerobic bottle after 48 hours.
[2018-09-20] MEDS: OLMESARTAN MEDOXOMIL 20 MG TAB PO SCH (22:00)
[2018-09-21 06:11] LABS: Creatinine Clr Calc Pharmacy 16.2 ml/min; Est GFR (African American) 23.2
[2018-09-21] MEDS: LEVOTHYROXINE SODIUM 75 MCG TABLET PO SCH (06:39)
[2018-09-21] MEDS: LEVALBUTEROL HCL 0.63 MG/3 ML NEB INH SCH ×3 (07:10→19:18)
[2018-09-21] MEDS: MoRPHine SULFATE 2 MG/ML CARP ONE ×2 (08:21→09:45)
[2018-09-21] MEDS: BUMETANIDE 1 MG TAB PO SCH ×2 (08:59→17:46)
[2018-09-21] MEDS: TOLTERODINE TARTRATE 2 MG TAB PO SCH ×2 (08:59→20:56)
[2018-09-21] MEDS: FLUTICASONE PROPIONATE NA SPR 16 GM BTL NAE SCH (09:00)
[2018-09-21] MEDS: INSULIN ASPART 100 UNITS/ML 3 ML PEN SC SCH ×4 (09:07→20:57)
[2018-09-21] MEDS: BASAGLAR INSULIN SQ SCH (09:09)
[2018-09-21] MEDS: ESCITALOPRAM OXALATE 10 MG TAB PO SCH (09:43)
[2018-09-21] MEDS: METOPROLOL TARTRATE 100 MG TAB PO SCH ×2 (09:43→20:56)
[2018-09-21] MEDS: cefTRIAXone SODIUM 1,000 MG in DEXTROSE 5% 50 ML IV SCH (09:44)
[2018-09-21] MEDS: PANTOprazole 40 MG TAB PO SCH (09:44)
[2018-09-21] MEDS ORDERED: MoRPHine SULFATE 2 MG/ML CARP IV STA (11:47)
--- NOTE | 2018-09-21 12:20 | Hospitalist Progress Note ---
Date of Service September 21, 2018 Assessment & Plan (1) Cellulitis of both lower extremities: Cellulitis of bilateral lower extremities/early ulceration medial aspect right lower extremity-this are very small continues on daptomycin IV and ceftriaxone IV likely can de-escalate as she is got great improvement however she does have a bronchitis type event we will he pick an antibiotic covers that also. Consult wound care continues to follow. Consult infectious disease Dr. Tilley, is pleased with her progress recommend oral and a box at time of discharge (2) CKD (chronic kidney disease), stage IV: Remains stable, creatinine greater than 2 but is been stable (3) CAD (coronary artery disease): CAD/hypertension/CHF-clinically stable though episode of chest pain this morning I do believe this is more of a panic attack event and not coronary related. Reviewed EKG as mentioned Continue metoprolol tartrate, on losartan, aspirin, bumetanide and digoxin. (4) Hypothyroidism: Continues on levothyroxine sodium 75 mcg every morning. (5) Hyperlipidemia: Remains on atorvastatin 10 mg every morning. (6) CHF (congestive heart failure): Has been with stable chronic systolic heart failure managed by shan roger, HFrEF, pt also with severe pulmonary HTN (7) GERD (gastroesophageal reflux disease): pantoprazole, gi symptoms not consistent with Gerd or PUDz, diarrhea complaints of less than stopping her oral medications (8) Hypertension: See above (9) Anxiety: Continue Lexapro, her current anxiety is situational likely will resolve once her disposition is reached (10) Atrial fibrillation: See above remains rate controlled has a pacemaker (11) COPD (chronic obstructive pulmonary disease): Continue usual inhalers as no continue with shortness of breath (12) Bladder spasms: Continue tolterodine (13) Diabetes mellitus: Continue home Basaglar, but decreased from 32 to 20 units subcu every morning. Placed on Accu-Cheks before meals and at bedtime with NovoLog coverage per scale . Subjective Called emergently as the patient was complained of chest pain and shortness of breath., Stat EKG did not show any new changes. Patient is a known cardiac patient with pacemaker. She has a left bundle branch block at baseline upon evaluation the patient had clear lungs she is mildly tachycardic otherwise her vital signs are stable. She feels this was a stress related event. Patient received 2 mg of morphine which greatly improved her symptoms. Patient stress seems to be revolve on eventual disposition as her personal fpc is refused to take her back or looking for alternative placement locations Review of Systems Review of Systems: ROS: well nourished well developed. No double vision blurry vision No problems with speech or swallowing Planes of chest pain this morning substernal and burning Planes of dyspnea without wheezing or focal discomfort No abdominal pain nausea vomiting diarrhea changes in appetite or weight No burning urine urine frequency or changes in color No focal joint pain or muscle pain No skin rashes or oral lesions No unusual bruising or bleeding No focused back pain or numbness or loss of strength Pain feeling under increased stress Physical Exam Physical Exam: The patient appeared well nourished and normally developed. Vital signs as documented. Head exam is unremarkable. normocephalic, atraumatic Neck is without jugular venous distension, thyromegaly, or lymphademopathy Lungs are clear to auscultation no focal air loss no wheeze Cardiac exam reveals Rhythm is regular, systolic ejection murmurs heard Abdominal exam reveals normal bowel sounds, no masses, no organomegaly Extremities are nonedematous and both pedal pulses are present Neurologic exam is A&Ox3, no focal deficits, strength is equal bilateral Psychologically seems anxious Skin is warm Dry Results & Data Vital Signs (Past 12 Hours) Vital Signs Temp Pulse Resp BP Pulse Ox 09/21/18 07:45 36.4 C L 69 26 H 150/69 H 98 09/21/18 07:22 36.3 C L 65 16 154/70 H 95 09/21/18 07:10 63 20 96 09/21/18 00:40 66 18 97 PG Care Time/CCT Total # of Minutes Spent Total Time Spent with Patient: Total time spent is greater than 50% in coordination of care (as documented) at patient's floor/unit and/or counseling patient:
[2018-09-21] MEDS: OLMESARTAN MEDOXOMIL 20 MG TAB PO SCH (20:56)
[2018-09-21] MEDS: DAPTOmycin 250 MG in SYRINGE 0 ML IV SCH (22:41)
[2018-09-22] MEDS: LEVOTHYROXINE SODIUM 75 MCG TABLET PO SCH (05:27)
[2018-09-22] MEDS: guaiFENesin 600 MG TABCR PO PRN (06:49)
[2018-09-22] MEDS: LEVALBUTEROL HCL 0.63 MG/3 ML NEB INH SCH ×3 (06:55→19:15)
[2018-09-22] MEDS: CALCITRIOL 0.25 MCG CAPSULE PO SCH (07:51)
[2018-09-22] MEDS: METOPROLOL TARTRATE 100 MG TAB PO SCH ×2 (07:51→20:16)
[2018-09-22] MEDS: ASPIRIN 81 MG ECTAB PO SCH (07:52)
[2018-09-22] MEDS: BUMETANIDE 1 MG TAB PO SCH (07:53)
[2018-09-22] MEDS: TOLTERODINE TARTRATE 2 MG TAB PO SCH ×2 (07:53→20:14)
[2018-09-22] MEDS: PANTOprazole 40 MG TAB PO SCH (07:54)
[2018-09-22] MEDS: ESCITALOPRAM OXALATE 10 MG TAB PO SCH (07:56)
[2018-09-22] MEDS: FLUTICASONE PROPIONATE NA SPR 16 GM BTL NAE SCH (07:57)
[2018-09-22] MEDS: cefTRIAXone SODIUM 1,000 MG in DEXTROSE 5% 50 ML IV SCH (07:57)
[2018-09-22] MEDS: DIGOXIN 0.125 MG TAB PO SCH (07:59)
[2018-09-22] MEDS: BASAGLAR INSULIN SQ SCH (08:13)
[2018-09-22] MEDS: INSULIN ASPART 100 UNITS/ML 3 ML PEN SC SCH ×4 (08:46→20:18)
[2018-09-22] MEDS: HEPARIN SOD 5,000 UNIT/0.5 ML VIAL SQ SCH ×2 (10:27→20:20)
[2018-09-22] MEDS ORDERED: BUMETANIDE 1 MG in SYRINGE 0 ML IV ONE (13:40)
[2018-09-22 13:57] LABS: BUN Creatinine Ratio 27.9 (10-20); Creatinine Clr Calc Pharmacy 16.4 ml/min; Est GFR (African American) 23.5; Est GFR (Non-African American) 20.2; Magnesium 2.2 mg/dl (1.8-2.4)
[2018-09-22] MEDS ORDERED: INSULIN GLARGINE SOLOSTAR 100 UNITS/ML 3 ML PEN SC SCH (14:00)
[2018-09-22] MEDS: LACTOBACILLUS ACIDOPHILUS (FLORANEX) TAB PO SCH (17:33)
--- NOTE | 2018-09-22 19:44 | Hospitalist Progress Note ---
Date of Service September 22, 2018 Assessment & Plan (1) Cellulitis of both lower extremities: IMPROVED/resolved. Currently on IV daptomycin IV and ceftriaxone IV. Can d/c IV abx. Change to omnicef for GPC/gram negative coverage and doxycycline for MRSA coverage. Continue optifoam for distal RLE ulceration. Present on Admission?: Yes (2) Acute on chronic combined systolic and diastolic CHF (congestive heart failure): Patient appears decompensated on exam. Hold PO bumex. Give IV bumex today and follow response. Cont BB. Repeat labs and exam tomorrow. Present on Admission?: No (3) CKD (chronic kidney disease), stage IV: Baseline CrCl is 15-20. Daily BMP especially in light of diuresis. Present on Admission?: Yes (4) CAD (coronary artery disease): History of CAD. No recent cardiac event or ischemic symptoms. Continue metoprolol, aspirin, bumetanide and digoxin. Due to daptomycin use the statin had been held; can likely resume tomorrow. Present on Admission?: Yes (5) Hypothyroidism: Levothyroxine sodium 75 mcg every morning. TSH 03/2018 wnl. (6) Hyperlipidemia: Holding statin due to daptomycin use but resume once off of this antibiotic. (7) GERD (gastroesophageal reflux disease): Cont PPI (8) Hypertension: Cont BB Consider restarting low-dose ARB if creatinine can tolerate, especially in light of systolic CHF (9) Anxiety: Continue Lexapro (10) Atrial fibrillation: Rates controlled NOT on systemic anticoagulation Remains on BB and digoxin Digoxin level 09/17/18 acceptable (11) COPD (chronic obstructive pulmonary disease): Continue usual inhalers No exacerbation at this time (12) Bladder spasms: Continue tolterodine (13) Diabetes mellitus: Continue home Basaglar 25 units daily Continue novolog w/ meals (14) DVT prophylaxis: heparin 5000 BID son extensively updated at bedside today [facility] [place] [facility] at this time patient likely to end up at SNF post-d/c -- possibly [facility] in [place] Subjective patient reports difficulty breathing in the middle of the night last pm. her ankles are more swollen than usual. has chronic saenz - present 3 months. she has also noted more dyspnea w/ exertion while working with physical therapy in comparison to baseline. cellulitis of legs looks better to her. appetite improved. met a 2nd time later in the day after her son had arrived from [place]. both she and her son tell me that "[facility] doesn't want me back" and they blame a visiting nurse for this. patient has lived at [facility] personal fci in [place] for 4 years. she has enjoyed living there. the visiting nurse comes to see her several times each week but not daily. [facility] apparently told the son that due to various medical issues - presence of MRSA, potential for dialysis, etc - she cannot go back to [facility]. Both the patient and her son state that they think the visiting nurse is telling [facility] these things but they are not true (there has been no MRSA, patient is not in need of imminent dialysis, etc). I offered to have our staff (social work) reach back out to [facility] to debunk some of this misinformation but pt and her son declined. She wants to go to [facility] in [place]. Review of Systems Constitutional: no fever and no chills Respiratory: + dyspnea and + dyspnea on exertion; no cough Cardiovascular: + orthopnea, + paroxysmal nocturnal dyspnea and + edema Gastrointestinal: no abdominal pain Physical Exam Constitutional: well developed, well nourished and average body habitus; no acute distress and no altered mental status ENMT: external ear and nose normal, oropharynx normal Respiratory: no respiratory distress Auscultation: + rales (both bases) Cardiovascular: Rate/Rhythm: regular rate and + irregularly irregular Heart Sounds: normal S1 and normal S2; no murmur Vessels: + JVD (to the jaw), posterior tibial pulses present and dorsalis pedis pulses present Extremities: + edema (2+ b/l) Gastrointestinal (Abdomen): normal bowel sounds, soft, nontender, no hepatosplenomegaly Skin: bilateral shins - distal - no cellulitis present Psychiatric: Orientation: alert and oriented x 3 Affect: + anxious affect Results & Data Vital Signs (Past 12 Hours) Vital Signs Temp Pulse Pulse Resp BP Pulse Ox 09/22/18 19:15 65 18 92 09/22/18 15:22 36.6 C 76 20 147/70 H 96 09/22/18 13:45 69 18 94 09/22/18 07:59 71 Laboratory Results Laboratory Results - last 24 hr 06/09/22/18 09/22/18 20:35 07:34 11:33 Sodium Potassium Chloride Carbon Dioxide Anion Gap BUN Creatinine Est Cr Clr Drug Dosing Est GFR ( Amer) Est GFR (Non-Af Amer) BUN/Creatinine Ratio Glucose POC Glucose 167 H 109 H 235 H Calcium Magnesium 09/22/18 09/22/18 13:10 16:43 Sodium 130 L Potassium 5.0 Chloride 93 L Carbon Dioxide 29 Anion Gap 8.0 BUN 59 H Creatinine 2.11 H Est Cr Clr Drug Dosing 16.4 Est GFR ( Amer) 23.5 Est GFR (Non-Af Amer) 20.2 BUN/Creatinine Ratio 27.9 H Glucose 216 H POC Glucose 87 Calcium 9.0 Magnesium 2.2 PG Care Time/CCT Total # of Minutes Spent Total Time Spent with Patient: Total time spent is greater than 50% in coordination of care (as documented) at patient's floor/unit and/or counseling patient: (1) Diabetes mellitus Diabetes mellitus type: type 2 Diabetes mellitus director long term care insulin use: with halfway use Diabetes mellitus complication status: with kidney complications Diabetes mellitus complication detail: with chronic kidney disease Chronic kidney disease stage: stage 4 (severe) Qualified Code(s): E11.22 - Type 2 diabetes mellitus with diabetic chronic kidney disease; N18.4 - Chronic kidney disease, stage 4 (severe); Z79.4 - long term care social worker (current) use of insulin (2) CAD (coronary artery disease) Coronary Disease-Associated Artery/Lesion type: [place] artery [place] vs. transplanted heart: [place] heart Associated angina: without angina Qualified Code(s): I25.10 - Atherosclerotic heart disease of [place] coronary artery without angina pectoris (3) Atrial fibrillation Atrial fibrillation type: chronic Qualified Code(s): I48.2 - Chronic atrial fibrillation (4) Hyperlipidemia Hyperlipidemia type: mixed hyperlipidemia Qualified Code(s): E78.2 - Mixed hyperlipidemia (5) Hypothyroidism Hypothyroidism type: acquired Qualified Code(s): E03.9 - Hypothyroidism, unspecified (6) COPD (chronic obstructive pulmonary disease) COPD type: unspecified COPD Qualified Code(s): J44.9 - Chronic obstructive pulmonary disease, unspecified (7) GERD (gastroesophageal reflux disease) Esophagitis presence: esophagitis presence not specified Qualified Code(s): K21.9 - Gastro-esophageal reflux disease without esophagitis (8) Hypertension Hypertension type: essential hypertension Qualified Code(s): I10 - Essential (primary) hypertension
[2018-09-22] MEDS: ACETAMINOPHEN 325 MG TAB PO PRN (20:11)
[2018-09-22] MEDS: DOXYCYCLINE HYCLATE 100 MG CAP PO SCH (20:15)
[2018-09-22] MEDS: OLMESARTAN MEDOXOMIL 20 MG TAB PO SCH (20:15)
--- NOTE | 2018-09-22 20:25 | Infectious Disease Progress Nt ---
Date of Service September 22, 2018 Assessment & Plan (1) Cellulitis of both lower extremities: 88-year-old female with bilateral lower extremity cellulitis in the setting of chronic venous stasis disease, with what appears to be clinical response to IV antibiotics. Patient now transitioned to oral antibiotics as discussed. Will follow clinical response. Subjective Patient seen in follow-up for bilateral lower extremity cellulitis. Having some issues with shortness of breath, nebulizer with some improvement. Remains afebrile. Lower extremity erythema improving. Tolerating antibiotics without apparent difficulty. Review of Systems Review of Systems: All systems reviewed & are unremarkable except as noted in HPI & below Physical Exam Constitutional: WD/WN, vitals as above no acute distress Eyes: PERRL, conjunctivae normal, anicteric sclerae ENMT: external ear and nose normal, oropharynx normal Neck: trachea midline, no thyromegaly Respiratory: normal respiratory effort, lungs clear to auscultation normal percussion; no respiratory distress Cardiovascular: RRR, no murmur, no edema Heart Sounds: no gallop and no cardiac rub Extremities: + edema (2+ both lower extremities) Gastrointestinal (Abdomen): normal bowel sounds, soft, nontender, no hepatosplenomegaly Percussion/Palpation: no abdominal mass Musculoskeletal: no cyanosis or clubbing, extremities motor strength 5/5 Head/Neck/Chest: normocephalic, head atraumatic and neck supple Skin: normal turgor; no rashes Neurologic: patellar DTR's 2+ bilat, sensation intact moves all extremities; no focal motor deficits Psychiatric: A+Ox3, euthymic affect Lymphatic: no cervical or axillary lymphadenopathy no inguinal lymphadenopathy Results & Data Vital Signs (Past 12 Hours) Vital Signs Temp Pulse Resp BP Pulse Ox 09/22/18 19:15 65 18 92 09/22/18 15:22 36.6 C 76 20 147/70 H 96 09/22/18 13:45 69 18 94 Diagnostic Findings Microbiology 09/17/18 19:21 Blood Aerobic Blood Culture - Preliminary No growth in Aerobic bottle after 48 hours. 09/17/18 19:21 Blood Anaerobic Blood Culture - Preliminary No growth in Anaerobic bottle after 48 hours. 09/17/18 19:14 Blood Aerobic Blood Culture - Preliminary No growth in Aerobic bottle after 48 hours. 09/17/18 19:14 Blood Anaerobic Blood Culture - Preliminary No growth in Anaerobic bottle after 48 hours.
[2018-09-23] MEDS: LEVOTHYROXINE SODIUM 75 MCG TABLET PO SCH (05:53)
[2018-09-23] MEDS: LEVALBUTEROL HCL 0.63 MG/3 ML NEB INH SCH ×3 (07:14→18:54)
[2018-09-23 07:37] LABS: Calcium 8.8 mg/dl (8.5-10.1); Creatinine Clr Calc Pharmacy 17.2 ml/min; Est GFR (African American) 24.1; Est GFR (Non-African American) 20.8; Potassium 4.6 mmol/L (3.5-5.1)
[2018-09-23] MEDS: HEPARIN SOD 5,000 UNIT/0.5 ML VIAL SQ SCH ×2 (08:04→21:20)
[2018-09-23] MEDS: DOXYCYCLINE HYCLATE 100 MG CAP PO SCH ×2 (08:13→21:14)
[2018-09-23] MEDS: CEFDINIR 300 MG CAP PO SCH (08:13)
[2018-09-23] MEDS: PANTOprazole 40 MG TAB PO SCH (08:14)
[2018-09-23] MEDS: TOLTERODINE TARTRATE 2 MG TAB PO SCH ×2 (08:14→21:13)
[2018-09-23] MEDS: METOPROLOL TARTRATE 100 MG TAB PO SCH (08:15)
[2018-09-23] MEDS: ESCITALOPRAM OXALATE 10 MG TAB PO SCH (08:15)
[2018-09-23] MEDS: LACTOBACILLUS ACIDOPHILUS (FLORANEX) TAB PO SCH ×3 (08:16→17:47)
[2018-09-23] MEDS: FLUTICASONE PROPIONATE NA SPR 16 GM BTL NAE SCH (08:16)
[2018-09-23] MEDS: BASAGLAR INSULIN SQ SCH (08:24)
[2018-09-23] MEDS: INSULIN ASPART 100 UNITS/ML 3 ML PEN SC SCH ×4 (08:25→21:19)
[2018-09-23] MEDS ORDERED: BUMETANIDE 2 MG in SYRINGE 0 ML IV ONE (09:31)
[2018-09-23] MEDS ORDERED: BUMETANIDE 1 MG in SYRINGE 0 ML IV ONE (19:15)
[2018-09-23] MEDS ORDERED: LORazepam 0.25 MG/0.5 ML VIAL IV STA (20:11)
[2018-09-23] MEDS ORDERED: ASPIRIN CHEW 324 MG PO STA (20:11)
[2018-09-23] MEDS ORDERED: ASPIRIN 81 MG CHEW PO ONE (20:15)
--- NOTE | 2018-09-23 20:29 | XRay Report ---
XR chest 1V portable CLINICAL HISTORY: chest pain history COMPARISON STUDY: 09/02/2018 FINDINGS: Mild stable cardiomegaly. 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 Lungs are clear. Slig ht chronic blunting right lateral costophrenic angle. IMPRESSION: Chronic and postoperative change. No acute process. The above report was generated using voice recognition software. It may contain grammatical, syntax or spelling errors. Electronically signed by: Yfn Hoang M.D. 09/23/2018 8:27 PM
--- NOTE | 2018-09-23 20:30 | Infectious Disease Progress Nt ---
Date of Service September 23, 2018 Assessment & Plan (1) Cellulitis of both lower extremities: 88-year-old female with bilateral lower extremity cellulitis in the setting of chronic venous stasis disease, with what appears to be clinical response to IV antibiotics. Patient now transitioned to oral antibiotics as discussed. Will follow clinical response. Subjective Patient seen in follow-up for lower extremity cellulitis. States that erythema improving, still with episodic shortness of breath. Remains afebrile. No other new complaints. Review of Systems Review of Systems: All systems reviewed & are unremarkable except as noted in HPI & below Physical Exam Constitutional: WD/WN, vitals as above no acute distress Eyes: PERRL, conjunctivae normal, anicteric sclerae ENMT: external ear and nose normal, oropharynx normal Neck: trachea midline, no thyromegaly Respiratory: normal respiratory effort, lungs clear to auscultation normal percussion; no respiratory distress Cardiovascular: RRR, no murmur, no edema Heart Sounds: no gallop and no cardiac rub Extremities: + edema (2+ both lower extremities) Gastrointestinal (Abdomen): normal bowel sounds, soft, nontender, no hepatosplenomegaly Percussion/Palpation: no abdominal mass Musculoskeletal: no cyanosis or clubbing, extremities motor strength 5/5 Head/Neck/Chest: normocephalic, head atraumatic and neck supple Skin: normal turgor; no rashes Neurologic: patellar DTR's 2+ bilat, sensation intact moves all extremities; no focal motor deficits Psychiatric: A+Ox3, euthymic affect Lymphatic: no cervical or axillary lymphadenopathy no inguinal lymphadenopathy Results & Data Vital Signs (Past 12 Hours) Vital Signs Temp Pulse Pulse Resp BP Pulse Ox 09/23/18 19:47 163/81 H 09/23/18 18:54 73 16 96 09/23/18 15:20 36.6 C 70 20 137/74 97 09/23/18 14:22 61 18 97 09/23/18 11:05 92 Laboratory Results [facility] 09/23/18 06:42 Sodium 132 L Potassium 4.6 Chloride 95 L Carbon Dioxide 30 BUN 60 H Creatinine 2.06 H Glucose 95 Calcium 8.8 Diagnostic Findings Microbiology 09/17/18 19:14 Blood Aerobic Blood Culture - Final No growth in Aerobic bottle after 5 days. 09/17/18 19:14 Blood Anaerobic Blood Culture - Final No growth in Anaerobic bottle after 5 days. 09/17/18 19:21 Blood Aerobic Blood Culture - Final No growth in Aerobic bottle after 5 days. 09/17/18 19:21 Blood Anaerobic Blood Culture - Final No growth in Anaerobic bottle after 5 days.
--- NOTE | 2018-09-23 20:31 | Progress Note ---
Date of Service In brief review of her chart,September 23, 2018 Received a page from patient's nurse that patient was having some chest pain. Saw the patient at bedside. She was sitting at the side of the bed and conversing easily. She says that she has some dull pain pointing to her left chest which she says is moving to her back. Has been there for about 20 minutes prior to the page. She says it is worse with a deep breath. She notes that she has had a heart bypass previously and that this chest pain does not feel like previous chest pain. She wonders if it is just "gas" pain. She also notes she has multiple stressors in her life. In brief review of her chart, she was admitted for bilateral lower extremity cellulitis. She has known history of CAD, hypertension, CHF, and CABG. There was mention of her having chest pain earlier in this admission. At that time it was thought to be more panic related and she remains on metoprolol, losartan, aspirin, bumetanide, and digoxin. Vitals notable for not tachycardic, moderately hypertensive, but normal room SpO2. She is moving air easily and has lungs clear to auscultation. Irregular heart rhythm without murmurs. Plan: - Ordered EKG. It noted a rate of 83 with A. fib, occasional ventricular paced complexes, and left bundle branch block. This appears very similar to the EKG obtained on September 21. - Order troponin. - Ordered portable chest x-ray given the pleuritic component. - Ordered aspirin 162 mg p.o. This is primarily for pain relief. - Ordered Ativan 0.25 mg IV x 1. - Overall suspect the great majority of her symptoms are anxiety related, though we will see if the above interventions are helpful. Gloria Hilton, PGY3 Overnight call Results & Data Vital Signs (Past 12 Hours) Vital Signs Temp Pulse Pulse Resp BP Pulse Ox 09/23/18 19:47 163/81 H 09/23/18 18:54 73 16 96 09/23/18 15:20 36.6 C 70 20 137/74 97 09/23/18 14:22 61 18 97 09/23/18 11:05 92
[2018-09-23] MEDS ORDERED: METOPROLOL SUCC 50MG EXT REL TAB PO SCH (21:00)
--- NOTE | 2018-09-23 21:07 | Hospitalist Progress Note ---
Date of Service September 23, 2018 Assessment & Plan (1) Cellulitis of both lower extremities: Resolved. Cont omnicef and doxy. Appreciate ID consult. Defer length of oral abx to Dr Tilley. (2) Acute on chronic combined systolic and diastolic CHF (congestive heart failure): Improving. Cont to hold PO bumex. Give 2mg IV bumex this AM, followed by 1mg of IV bumex this evening. Cont BB -- change metoprolol from tartrate to succinate. Repeat labs am. (3) CKD (chronic kidney disease), stage IV: Baseline CrCl 15-20 BMP am for stability (4) CAD (coronary artery disease): No recent ischemic symptoms. Echo 2018 with inferior wall motion abnormalities. Cont metoprolol, aspirin, bumetanide and digoxin. Resume statin. (5) Hypothyroidism: Cont levothyroxine 75mcg daily. TSH early 2019 wnl. (6) Hyperlipidemia: Resume statin since daptomycin has been d/c. (7) GERD (gastroesophageal reflux disease): Cont PPI (8) Hypertension: Cont home meds (9) Anxiety: Continue Lexapro (10) Atrial fibrillation: Rates controlled Cont BB Cont Dig Recent dig level 1.5 Not on systemic anticoagulation (11) COPD (chronic obstructive pulmonary disease): Continue usual inhalers. Not in exacerbation at this time. (12) Bladder spasms: Continue tolterodine (13) Diabetes mellitus: Continue home Basaglar and novolog w/ meals. Acceptable control today given her age. (14) Urinary retention: Chronic saenz x 3-4 months. Changed qmonthly. Need to check last date of exchange. (15) Pulmonary hypertension: severe, based on echo 2018. PT checked O2 sats during walk today -- lowest sat 92%. (16) Hyponatremia: chronic likely 2nd to combo of CKD, diuretics, etc BMP qam (17) DVT prophylaxis: heparin 5000 BID dispo - [facility] in [place] - hopefully 09/24/18 Subjective patient's breathing is improved today. less dyspnea when she worked with PT. PT was in the room when I arrived and they stated she did well today with her walking. appetite good. making good urine with IV bumex. less dyspnea and PND overnight. still anxious about the issues surrounding [facility] but she is excited about possibility of going to [employer]. Review of Systems Constitutional: no fever and no chills Respiratory: + dyspnea on exertion; no cough and no dyspnea Cardiovascular: no chest pain Gastrointestinal: no abdominal pain, no nausea and no vomiting Physical Exam Constitutional: well developed, well nourished and average body habitus; no acute distress and no altered mental status ENMT: external ear and nose normal, oropharynx normal Respiratory: no respiratory distress Auscultation: + rales (improved today; minimal bases) Cardiovascular: Rate/Rhythm: regular rate and + irregularly irregular Heart Sounds: normal S1 and normal S2; no murmur Vessels: + JVD (to the jaw), posterior tibial pulses present and dorsalis pedis pulses present Extremities: + edema (<1+ b/l today) Gastrointestinal (Abdomen): normal bowel sounds, soft, nontender, no hepatosplenomegaly Skin: cellulitis absent from b/l samuels; minimal venous stasis changes; scant ulceration distal right medial leg superior to ankle Psychiatric: Orientation: alert and oriented x 3 Affect: + anxious affect Results & Data Vital Signs (Past 12 Hours) Vital Signs Temp Pulse Pulse Resp BP Pulse Ox 09/23/18 19:47 163/81 H 09/23/18 18:54 73 16 96 09/23/18 15:20 36.6 C 70 20 137/74 97 09/23/18 14:22 61 18 97 09/23/18 11:05 92 Laboratory Results Laboratory Results - last 24 hr 09/23/18 09/23/18 09/23/18 06:42 07:53 11:45 Sodium 132 L Potassium 4.6 Chloride 95 L Carbon Dioxide 30 Anion Gap 7.0 BUN 60 H Creatinine 2.06 H Est Cr Clr Drug Dosing 17.2 Est GFR ( Amer) 24.1 Est GFR (Non-Af Amer) 20.8 BUN/Creatinine Ratio 29.0 H Glucose 95 POC Glucose 101 H 184 H Calcium 8.8 Troponin I 09/23/18 09/23/18 09/23/18 16:45 20:23 20:42 Sodium Potassium Chloride Carbon Dioxide Anion Gap BUN Creatinine Est Cr Clr Drug Dosing Est GFR ( Amer) Est GFR (Non-Af Amer) BUN/Creatinine Ratio Glucose POC Glucose 90 176 H Calcium Troponin I Pending PG Care Time/CCT Total # of Minutes Spent Total Time Spent with Patient: Total time spent is greater than 50% in coordination of care (as documented) at patient's floor/unit and/or counseling patient: (1) Diabetes mellitus Diabetes mellitus type: type 2 Diabetes mellitus pediatric physician assistant insulin use: with senior living use Diabetes mellitus complication status: with kidney complications Diabetes mellitus complication detail: with chronic kidney disease Chronic kidney disease stage: stage 4 (severe) Qualified Code(s): E11.22 - Type 2 diabetes mellitus with diabetic chronic kidney disease; N18.4 - Chronic kidney disease, stage 4 (severe); Z79.4 - fruit picker (current) use of insulin (2) CAD (coronary artery disease) Coronary Disease-Associated Artery/Lesion type: [place] artery [place] vs. transplanted heart: [place] heart Associated angina: without angina Qualified Code(s): I25.10 - Atherosclerotic heart disease of [place] coronary artery without angina pectoris (3) Atrial fibrillation Atrial fibrillation type: chronic Qualified Code(s): I48.2 - Chronic atrial fibrillation (4) Hyperlipidemia Hyperlipidemia type: mixed hyperlipidemia Qualified Code(s): E78.2 - Mixed hyperlipidemia (5) Hypothyroidism Hypothyroidism type: acquired Qualified Code(s): E03.9 - Hypothyroidism, unspecified (6) COPD (chronic obstructive pulmonary disease) COPD type: unspecified COPD Qualified Code(s): J44.9 - Chronic obstructive pulmonary disease, unspecified (7) GERD (gastroesophageal reflux disease) Esophagitis presence: esophagitis presence not specified Qualified Code(s): K21.9 - Gastro-esophageal reflux disease without esophagitis (8) Hypertension Hypertension type: essential hypertension Qualified Code(s): I10 - Essential (primary) hypertension
[2018-09-23] MEDS: OLMESARTAN MEDOXOMIL 20 MG TAB PO SCH (21:14)
[2018-09-24] MEDS: LEVOTHYROXINE SODIUM 75 MCG TABLET PO SCH (05:50)
[2018-09-24] MEDS: LEVALBUTEROL HCL 0.63 MG/3 ML NEB INH SCH ×2 (07:22→14:05)
[2018-09-24] MEDS: FLUTICASONE PROPIONATE NA SPR 16 GM BTL NAE SCH (07:37)
[2018-09-24] MEDS: LACTOBACILLUS ACIDOPHILUS (FLORANEX) TAB PO SCH ×2 (07:37→12:17)
[2018-09-24] MEDS: DIGOXIN 0.125 MG TAB PO SCH (07:38)
[2018-09-24] MEDS: ESCITALOPRAM OXALATE 10 MG TAB PO SCH (07:39)
[2018-09-24] MEDS: CALCITRIOL 0.25 MCG CAPSULE PO SCH (07:39)
[2018-09-24] MEDS: DOXYCYCLINE HYCLATE 100 MG CAP PO SCH (07:40)
[2018-09-24] MEDS: ASPIRIN 81 MG ECTAB PO SCH (07:40)
[2018-09-24] MEDS: HEPARIN SOD 5,000 UNIT/0.5 ML VIAL SQ SCH (07:41)
[2018-09-24] MEDS: PANTOprazole 40 MG TAB PO SCH (07:43)
[2018-09-24] MEDS: TOLTERODINE TARTRATE 2 MG TAB PO SCH (07:43)
[2018-09-24] MEDS: BASAGLAR INSULIN SQ SCH (07:58)
[2018-09-24] MEDS: INSULIN ASPART 100 UNITS/ML 3 ML PEN SC SCH ×2 (08:02→12:09)
[2018-09-24] MEDS: CEFDINIR 300 MG CAP PO SCH (08:39)
[2018-09-24 10:10] LABS: Basophils # (auto) 0.01 K/uL (0-0.2); Basophils % (auto) 0.1 %; Eosinophils # (auto) 0.21 K/uL (0-0.5); Eosinophils % (auto) 3.1 %; Hematocrit (blood only) 36.1 % (37-47); Hemoglobin 11.8 g/dL (12.0-16.0); Immature Granulocytes # (auto) 0.01 K/uL (0.00-0.02); Immature Granulocytes % (auto) 0.1 %; Lymphocytes # (auto) 1.03 K/uL (1.2-3.4); Lymphocytes % (auto) 15.1 %; Mean Corpuscular Hgb Conc 32.7 g/dL (32-36); Mean Corpuscular Volume 92.6 fL (80-100); Mean Platelet Volume 8.9 fL (7.4-10.4); Monocytes # (auto) 0.66 K/uL (0.11-0.59); Monocytes % (auto) 9.7 %; Neutrophils # (auto) 4.89 K/uL (1.4-6.5); Neutrophils % (auto) 71.9 %; Platelet Count 163 K/uL (130-400); RDW Coefficient of Variation 14.3 % (11.5-14.5); RDW Standard Deviation 48.4 fL (36.4-46.3); White Blood Count 6.81 K/uL (4.8-10.8)
[2018-09-24 10:55] LABS: BUN Creatinine Ratio 27.9 (10-20); Creatinine Clr Calc Pharmacy 16.4 ml/min; Est GFR (African American) 23.1; Est GFR (Non-African American) 19.9; Potassium 4.8 mmol/L (3.5-5.1)
[2018-09-24 13:01] LABS: Troponin I 0.024 ng/ml (0-0.045)
[2018-09-24] MEDS ORDERED: BUMETANIDE 1 MG in SYRINGE 0 ML IV ONE (13:15)
[2018-09-24] MEDS ORDERED: ISOSORBIDE MONO EXTENDED REL 30 MG TABCR PO SCH (13:30)
--- NOTE | 2018-09-24 15:53 | Discharge Summary ---
Date of Service date of admission - September 17, 2018 date of discharge - September 24, 2018 Admission HPI Per Admitting Provider Complicated 88yo female with chronic systolic CHF, CAD, chronic saenz, CKD stage 4, and T2DM who presents to the emergency department with complaint of infection in her legs after being seen in the wound care clinic 2 days previously and then by Dr. Tilley from infectious disease earlier in the day today. She was advised to go to the ED to be admitted for IV antibiotics. Her main complaint is that of pain in the right medial aspect of the tibia where a previous ulceration had been located. Principal Diagnosis bilateral lower extremity cellulitis Discharge Exam Constitutional well developed, well nourished and average body habitus; no acute distress and no altered mental status ENMT external ear and nose normal, oropharynx normal Respiratory no respiratory distress Auscultation: + rales (minimal bases); no diminished lung sounds and no wheezes Cardiovascular Rate/Rhythm: regular rate and + irregularly irregular Heart Sounds: normal S1 and normal S2; no murmur Vessels: + JVD (mild; much improved from prior exams), posterior tibial pulses present and dorsalis pedis pulses present Extremities: + edema (<1+ b/l) Gastrointestinal (Abdomen) normal bowel sounds, soft, nontender, no hepatosplenomegaly Skin resolved cellulitis of both legs. Small amount of background venous stasis changes b/l legs. Tiny ulcers (2-3 in number) over right distal medial leg just above the ankle. Psychiatric Orientation: alert and oriented x [address] Discharge Data Allergies Allergy/AdvReac Type Severity Reaction Status Date / Time fenofibrate Allergy Intermediate rash Verified 09/17/18 20:06 amoxicillin Allergy Unknown UNKNOWN Verified 09/15/18 09:17 calcium carbonate Allergy Unknown . Verified 09/15/18 09:17 Cipro Allergy Unknown . Verified 10/30/17 13:10 ciprofloxacin Allergy Unknown . Verified 09/15/18 09:17 diphenhydramine Allergy Unknown . Verified 09/15/18 09:17 fexofenadine Allergy Unknown UNKNOWN Verified 09/17/18 20:05 irbesartan Allergy Unknown UNKNOWN Verified 09/17/18 20:04 lidocaine Allergy Unknown . Verified 09/15/18 09:17 niacin Allergy Unknown RASH Verified 09/17/18 20:05 nystatin Allergy Unknown . Verified 09/15/18 09:17 Penicillins Allergy Unknown UNKNOWN Verified 09/15/18 09:17 Sulfa (Sulfonamide Allergy Unknown UNKNOWN Verified 09/15/18 09:17 Antibiotics) flumazenil AdvReac Intermediate DELIRIUM Verified 09/15/18 09:17 tomato AdvReac Unknown GI SYMPTOMS Verified 09/15/18 09:11 Consultations 1. infectious disease - Barber Tilley MD 2. PT, OT Procedures Performed 1. echocardiogram - * EF 45-50% * moderate LVH * mild-moderate pulmonary HTN * moderate-severe MR * normal sized IVC * akinesis from base to mid-ventricle * very mild lateral apical hypokinesis * very mild basal inferior hypokinesis 2. chest x-ray Hospital Course (1) Cellulitis of both lower extremities: Initially received IV rocephin & IV daptomycin. Her cellulitis resolved with these antibiotics. Blood cultures were negative while hospitalized. She was seen by Dr Barber Tilley from infectious disease. She was transitioned to oral cefdinir and doxycycline; she will take 4 more days of each after discharge. She has a tiny ulceration on the right distal medial leg that is being covered with optifoams. Anticipate this ulceration resolving itself in the 1-2 weeks post-discharge. (2) Acute on chronic combined systolic and diastolic CHF (congestive heart failure): She received several days of IV diuresis for decompensated CHF. Her pulmonary symptoms improved with such. Echo during this stay showed EF 45-50% (modest improvement in EF relative to 2018). At discharge her weight was approximately 67.5 kg. She appeared euvolemic and chest x-ray on 09/23/18 failed to show pulmonary edema. Her beta katie was changed from metoprolol tartrate to metoprolol succinate. She will take 100mg of the latter daily. This could always be titrated if necessary. Low-dose ARB will be continued. She will remain on 1mg of bumex TWICE DAILY. Daily weights, fluid restriction, and salt restriction all advised. (3) CKD (chronic kidney disease), stage IV: Baseline CrCl 15-20 and Baseline Creatinine is 2 to 2.2. Creatinine on day of discharge was 2.1. She follows with Dr Edmund Urias in [place]. Recommend repeat BMP in about 5 days post-discharge to ensure stability. (4) CAD (coronary artery disease): Follows with Dr Curly Guido in [place] for her CAD, CHF, etc. s/p 5-vessel CABG at [facility] in the late 1999s. Then underwent stent placement in the - also at [facility]. During this stay she had 2 episodes of chest discomfort. Both self-resolved. All troponins were negative while here. EKG shows chronic LBBB. She reports that she gets chest pain - sometimes exertional and sometimes at rest - about every 2 weeks. Suspect chronic stable angina. Echo was completed - EF slightly improved from 2018, and wall motion abnormalities not as severe as [address] Guido by phone - in light of advanced age, CKD stage 4, etc - medical management recommended. Added imdur 30mg once daily. She will continue metoprolol, aspirin, bumetanide, lipitor, and digoxin. ECHO PLACED ON CD-ROM FOR PATIENT AT DISCHARGE. RECOMMEND BRINGING ECHO TO FOLLOW-UP APPOINTMENT WITH DR GUIDO. ADVISE F/U WITH HIM WITHIN 2 WEEKS IF POSSIBLE. (5) Hypothyroidism: Cont levothyroxine 75mcg daily. TSH early 2019 wnl. (6) Hyperlipidemia: Continue lipitor. (7) GERD (gastroesophageal reflux disease): Cont PPI. (8) Hypertension: Continue home meds; controlled while hospitalized. (9) Anxiety: Continue Lexapro. This was an issue during the stay due to various stressors including not being able to return to her personal fdc, etc. Consider titration of lexapro if needed. (10) Atrial fibrillation: Rates controlled while hospitalized. Cont metoprolol succinate 100mg daily. Cont Digoxin. Recent dig level was 1.5. Not on systemic anticoagulation - has had issues in the past with bleeding. Has pacemaker in place as well. Patient and her son also state she has considerable troubles with SC heparin for DVT prophylaxis as well as low-dose aspirin. [id number] she takes 81mg aspirin every other day without difficulty. (11) COPD (chronic obstructive pulmonary disease): Continue usual inhalers. Not in exacerbation during the stay. (12) Bladder spasms: Continue tolterodine. (13) Diabetes mellitus: Continue home Basaglar and novolog w/ meals. Acceptable control while here. Insulin recommendations - 1. basaglar 25 units daily. 2. novolog sliding scale with meals - see discharge med list for details. hemoglobin a1c was 8.2% in 03/2018. (14) Urinary retention: Has had a chronic saenz for 3-4 months. Changed qmonthly. Last exchange - mid August 2018 while at [facility] (was hospitalized from 09/02/18 to 09/05/18 for CHF and UTI). (15) Pulmonary hypertension: Severe, based on echo 2018. Echo this admission showed mild-moderate pulmonary HTN. Physical therapy checked O2 sats during her walks -- lowest O2 sat 92% in room air. (16) Hyponatremia: Chronic, dating back at least to 2017. Likely 2nd to combination of CKD, diuretics, etc Baseline Na level -- 128 to 132. Discharge sodium level on 09/24/18 -- 130. Advise repeat BMP in about 5 days post-discharge. (17) Pacemaker: No issues. Last interrogation date - 09/05/18 at [facility]. Normal pacer function at that time. Pacemaker is [employer]. (18) LBBB (left bundle branch block): Chronic. (19) Discharge planning issues: Patient previously lived at [facility] x 4 years. She was felt to be too medically complex to return there per the staff at [facility]. Thus she is being discharged to [facility] in [place]. Total Time Total Time Spent Total Time Spent (In Minutes): 60 Total Time Includes: Examination of the Patient, Discharge Planning, Medication Reconciliation and Communication With Other Providers (Dr Andrew Bateman and Dr Curly Guido) Discharge Plan Discharge Items Patient Disposition: Transfer [facility] Reason For Visit: LOWER EXTREMITY CELLULITIS Discharge Diagnosis: 1. bilateral leg cellulitis. 2. acute/chronic systolic CHF. 3. chest pain - no evidence of heart attack. Discharge Goals: Diagnostic testing and Therapeutic intervention Activity: Resume your previous activity Non-emergency contact: Primary Care Provider and Network Liaison Call non-emergency contact if: you have any medication questions, your pain is not controlled and your temperature is above 100.5 Follow-up/Referrals: Curly Guido [Other] (please see Dr Guido within 2 weeks) Deion Downs MD [Primary Care Provider] - (see your family doctor or the medical/surgery registered nurse of [facility] in 2-3 days if possible) Diet: Carb Consistent or DM2 and Heart Healthy Fluids: 1500ml (6 cups) Addtl Provider Instructions: From Kt Alfonso, hospitalist at [facility] - 1. Please perform daily weights on standing scale first thing every MORNING. Notify medical/surgery registered nurse of any weight gain of more than 2-3 pounds in 1-2 days. 2. Patient has chronic saenz catheter. It is due to be changed in about 10-14 days. Please change every 30 days. 3. Check CBC, BMP, and magnesium level in 4-5 days for stability. Notify medical/surgery registered nurse of results. 4. Check fingerstick blood sugars before meals and at bedtime. 5. Patient is currently on 2 antibiotics for leg cellulitis - doxycycline and cefdinir. Once these are complete in 4 days she can RESUME her nitrofurantoin for UTI prophylaxis. 6. Follow-up -- * see Dr Curly Guido, cardiology in [place], within 2 weeks. Diagnosis - chronic stable angina. * see medical/surgery registered nurse of [facility] within 2-3 days * see Dr Edmund Urias - nephrology - within 2-3 weeks for CKD stage 4 7. Continue optifoam to right lower medial leg and change daily. Can likely discontinue these dressings sometime in the next week or so. 8. Return to any hospital if - * you have fevers over 100.5 degrees * you have worsening shortness of breath * you have severe chest pain * you have to take sublinquinal nitroglycerin for chest pain * you have severe diarrhea * you have worsening redness or infection of your legs * any other concerns Prescriptions: New acetaminophen [Mapap (acetaminophen)] 325 mg Tablet 650 mg PO Q4H PRN (Reason: fever or pain) Qty: 30 RF: 0 doxycycline hyclate 100 mg Capsule 100 mg PO BID 4 Days Qty: 8 RF: 0 metoprolol succinate 50 mg Tablet Extended Release 24 Hr 100 mg PO HS Qty: 30 RF: 11 isosorbide mononitrate 30 mg Tablet Extended Release 24 Hr 30 mg PO QAM Qty: 30 RF: 11 cefdinir 300 mg Capsule 300 mg PO Q24H 4 Days Qty: 4 RF: 0 Novolog Flexpen U-100 Insulin 100 unit/mL (3 mL) Insulin Pen 1 unit SC AC Qty: 1 RF: 0 Lactobacillus acidoph-L.bulgar [Floranex] 1 million cell Tablet 4 tab PO TIDM 7 Days Qty: 84 RF: 0 Continued aspirin [Adult Low Dose Aspirin] 81 mg tablet,delayed release (DR/EC) 81 mg PO Q2D RF: 0 nitroglycerin 0.4 mg Tablet, Sublingual 0.4 mg Sublingual DIRECTED PRN (Reason: Chest Pain) RF: 0 atorvastatin 10 mg tablet 10 mg PO QAM RF: 0 levalbuterol HCl 0.63 mg/3 mL solution for nebulization 0.63 mg Inhalation TID RF: 0 levothyroxine 75 mcg tablet 75 mcg PO QAM RF: 0 tolterodine 2 mg tablet 2 mg PO BID RF: 0 ascorbic acid (vitamin C) [Vitamin C] 500 mg Tablet 500 mg PO QAM RF: 0 biotin 10,000 mcg Capsule 10,000 mcg PO QAM RF: 0 lansoprazole 30 mg capsule,delayed release(DR/EC) 30 mg PO QAM RF: 0 docusate sodium [Colace] 100 mg Capsule 100 mg PO BID RF: 0 bumetanide 1 mg tablet 1 mg PO BID RF: 0 digoxin 125 mcg tablet 125 mcg PO 3XWK RF: 0 ondansetron 4 mg tablet,disintegrating 4 mg PO Q6H PRN (Reason: Nausea And Vomiting) RF: 0 calcitriol 0.25 mcg capsule 0.25 mg PO Q48H RF: 0 cranberry 500 mg Capsule 1,000 mg PO BID RF: 0 cholecalciferol (vitamin D3) [Vitamin D3] 1,000 unit Capsule 1,000 unit PO QAM RF: 0 loratadine 10 mg Capsule 10 mg PO QAM RF: 0 fluticasone propionate [Flonase Allergy Relief] 50 mcg/actuation [place],Suspension 2 spray INTRANASAL DAILY RF: 0 magnesium oxide 400 mg magnesium capsule 400 mg PO QAM RF: 0 miconazole nitrate 2 % Powder 1 applic TOPICAL DIRECTED PRN (Reason: FUNGAL DERMATITIS) RF: 0 escitalopram oxalate 10 mg Tablet 5 mg PO DAILY RF: 0 lactulose 10 gram/15 mL Solution 15 ml PO DAILY PRN (Reason: Constipation) RF: 0 guaifenesin [Mucinex] 600 mg Tablet Extended Release 12hr 600 mg PO Q12H PRN (Reason: Congestion) RF: 0 olmesartan 20 mg tablet 20 mg PO HS RF: 0 cyanocobalamin (vitamin B-12) [Vitamin B-12] 1,000 mcg Tablet 1,000 mcg PO DAILY RF: 0 nitrofurantoin macrocrystal 50 mg Capsule 50 mg PO HS Qty: 0 RF: 0 Changed benzonatate 100 mg capsule 100 mg PO TID PRN (Reason: Cough) Qty: 0 RF: 0 Basaglar KwikPen U-100 Insulin 100 unit/mL (3 mL) Insulin Pen 25 unit SUBCUT QAM Qty: 1 RF: 0 Discontinued metoprolol tartrate 100 mg tablet 100 mg PO BID RF: 0 cefadroxil 500 mg capsule 500 mg PO BID RF: 0 Stand-Alone Forms: [facility] Discharge Orders: Discharge Order (Routine); Ordered 09/24/18 Ordered By: Kt Alfonso Skilled Items Patient informed of condition?: Yes DNR: No Discharge Level of Care: Skilled Communicable Disease: No Discharge Prognosis: Stable Admission Data Admit Date/Time: 09/22/18 09:08 Attending Provider: Kt Alfonso Admit Provider: Zachary Neumann Primary Care Provider: Deion Downs Other Providers: Zachary Neumann ; Barber Tilley Service: Medical Other Interventions: Discharge Summary Assessment (RN) Last Done: 09/24/18 14:31 Pending Studies at Discharge: No DC Date/Time DO NOT enter until pt leaves facility: 09/24/18 16:13
== END 2018-09-24 16:13 | DRG 602 ==
LOC: 4E 16:39 → ED 16:39 → SUATTDRO 21:34 → 4E 22:21
DX: Z88.0 Allergy status to penicillin; I13.0 Hypertensive heart and chronic kidney disease with heart failure and stage 1 through stage 4 chronic kidney disease, or unspecified chronic kidney disease; I48.91 Unspecified atrial fibrillation; I50.43 Acute on chronic combined systolic (congestive) and diastolic (congestive) heart failure; Z95.0 Presence of cardiac pacemaker; K21.9 Gastro-esophageal reflux disease without esophagitis; L03.115 Cellulitis of right lower limb; I87.8 Other specified disorders of veins; E78.5 Hyperlipidemia, unspecified; Z88.2 Allergy status to sulfonamides; N32.89 Other specified disorders of bladder; E11.9 Type 2 diabetes mellitus without complications; L03.116 Cellulitis of left lower limb; F41.9 Anxiety disorder, unspecified; E03.9 Hypothyroidism, unspecified; J44.9 Chronic obstructive pulmonary disease, unspecified; I25.10 Atherosclerotic heart disease of native coronary artery without angina pectoris; Z88.1 Allergy status to other antibiotic agents; N18.4 Chronic kidney disease, stage 4 (severe)